=== PATIENT | male | born 1940 | race Caucasian/White ===

== ENCOUNTER 2020-02-23 14:17 | Outpatient (CLI) | payer MEDICARE, OTHER, SELFPAY ==
[2020-02-23 14:46] LABS: Basophils Absolute Auto 0.1 K/mm3 (0.0-0.1); Basophils Percent Auto 1.7 % (0.2-1.2); Eosinophils Absolute Auto 0.1 K/mm3 (0-0.3); Eosinophils Percent Auto 1.9 % (0-4.4); Hematocrit 39.2 % (42.0-52.0); Hemoglobin 13.4 g/dL (14.0-18.0); Immature Granulocyte Absolute 0.02 K/mm3 (0.00-0.031); Immature Granulocyte Percent A 0.4 % (0-0.5); Immature Platelet Fraction Pct 5.7 % (0.9-11.2); Lymphocytes Percent Auto 35.5 % (18.3-44.2); Mean Corpuscular HGB Conc 34.2 g/dl (32-36); Mean Corpuscular Hemoglobin 36.5 pg (26-34); Mean Corpuscular Volume 106.8 fl (80-100); Mean Platelet Volume 10.7 fl (7.4-10.4); Monocytes Absolute Auto 0.6 K/mm3 (0.1-0.6); Monocytes Percent Auto 11.5 % (2.6-8.5); Neutrophils Absolute Auto 2.4 K/mm3 (1.3-6.7); Platelet Count Result 113 k/mm3 (150-375); Red Blood Count 3.67 M/mm3 (4.6-6.20); Red Cell Distribution Width 13.2 % (11.5-14.5); White Blood Count 4.8 K/mm3 (4.5-10.0)
[2020-02-23 14:51] LABS: Partial Thromboplastin Time 23.8 SECONDS (22.3-36.8)
[2020-02-23 14:58] LABS: Blood Urea Nitrogen 20 mg/dL (9-20); Calcium 8.9 mg/dL (8.4-10.2); Carbon Dioxide 28 mmol/L (22-30); Chloride 100 mmol/L (98-107); Estimated Glomerular Filt Rate > 60; Glucose 91 mg/dL (75-110); Potassium 4.2 mmol/L (3.4-5.0); Sodium 136 mmol/L (137-145)
== END 2020-02-23 14:18 | disposition home or self-care (01) ==
LOC: ANHSURGERY 14:23
PROVIDERS: PCP Family Medicine; Visit Provider Urology
DX: Z01.818 Encounter for other preprocedural examination (principal); N32.9 Bladder disorder, unspecified
CPT/HCPCS: 36415; 80048; 85025; 85055; 85730; 87086

== ENCOUNTER 2020-02-28 06:18 | Outpatient (CLI) | payer MEDICARE, OTHER, SELFPAY ==
[2020-02-28 17:27] LABS: SARS-CoV-2 RNA PCR Negative
== END 2020-02-28 06:19 | disposition home or self-care (01) ==
LOC: ANHCOVIDDT 06:18
PROVIDERS: PCP Family Medicine; Visit Provider Urology
DX: Z01.812 Encounter for preprocedural laboratory examination (principal); Z11.59 Encounter for screening for other viral diseases
CPT/HCPCS: 87635; C9803; U0003

== ENCOUNTER 2020-03-02 02:24 | Day surgery (SDC) | payer MEDICARE, OTHER, SELFPAY ==
[2020-02-20 13:10] VITALS: BMI 30.7
[2020-03-02] VITALS (16 sets, daily range): BP systolic 129–157; BP diastolic 60–82; PULSE 53–68; RESP 8–20; TEMP 36.2–36.8; O2SAT 94–99
--- NOTE | 2020-03-02 08:36 | ECG_ITS ---
Measurements Intervals [place] Rate: 59 P: 25 DE: 222 QRS: -17 QRSD: 104 T: 50 QT: 404 QTc: 401 Interpretive Statements SINUS BRADYCARDIA WITH FIRST DEGREE AV BLOCK CANNOT RULE OUT SEPTAL INFARCT, AGE INDETERMINATE PEAKED T WAVES- CONSIDER HYPERKALEMIA OR ISCHEMIA ABNORMAL ECG Electronically Signed On 03-02-2020 9:00:24 CDT by El Toth D.O.
[2020-03-02 09:34] LABS: INR 1.1; Prothrombin Time 13.7 Seconds (11.1-14.7)
--- NOTE | 2020-03-02 09:37 | WPDHPUPDATE1 ---
History and Physical Update Update Date/Time: 03/02/20 09:37 History and Physical has been reviewed, including an updated exam of the patient. There are NO changes in the patient's condition. Risks, benefits, and alternatives have been discussed and questions answered. Patient agrees to proceed with procedure.
[2020-03-02] MEDS: LACTATED RINGERS 1,000 ML 30 ML IV CONT (09:38)
--- NOTE | 2020-03-02 10:18 | WPDANESEPPF ---
Anes - Initial Pre Proc Eval Procedure: Operation Date: 03/02/20 10:15 Proposed Procedures p Cystoscopy, Bladder Biopsy - Roberto Solano MD s Possible Trans Urethral Resection Bladder Tumor - Roberto Solano MD Date/Time: 03/02/20 10:18 Surgeon: Roberto Solano MD Pre Op Diagnosis: bladder lesion Patient Data Age: 79 Gender: M Height: 5 ft 6 in Weight: 87.6 kg Last Vital Signs Temp 36.2 C L 03/02/20 09:08 Pulse 60 03/02/20 09:08 Resp 20 03/02/20 09:08 BP 130/68 03/02/20 09:08 Pulse Ox 98 03/02/20 09:08 Allergies Allergy/AdvReac Type Severity Reaction Status Date / Time sulfamethizole Allergy Unknown Confusion Verified 03/02/20 09:33 sulfamethoxazole Allergy Unknown Confusion Verified 03/02/20 09:33 trimethoprim Allergy Unknown Confusion Verified 03/02/20 09:33 Home Medications Medication Instructions Recorded Confirmed Type atorvastatin 10 mg tablet 10 mg PO HS 10/30/19 02/20/20 History levothyroxine 50 mcg tablet 50 mcg PO DAILY 10/30/19 03/02/20 History tamsulosin 0.4 mg capsule 0.4 mg PO HS 10/30/19 02/20/20 History zolpidem 10 mg tablet 10 mg PO .HS PRN #90 tablet 11/04/19 02/20/20 Rx pantoprazole 20 mg tablet,delayed 20 mg PO QAM #90 tablet 12/08/19 02/20/20 Rx release lidocaine 5 % topical ointment 1 applic TOPICAL TID PRN #120 gm 01/30/20 02/20/20 Rx albuterol sulfate [ProAir HFA] 1 inh INHALATION QID PRN 02/20/20 02/20/20 History ascorbate calcium (vitamin C) 500 mg PO DAILY 02/20/20 02/20/20 History aspirin [Aspir-81] 81 mg PO HS 02/20/20 02/20/20 History calcium carb-mag oxide-vit D3 1 tablet PO DAILY 02/20/20 02/20/20 History [Calcium Magnesium + D] cyanocobalamin (vitamin B-12) 500 mcg PO DAILY 02/20/20 02/20/20 History eluxadoline [Viberzi] 100 mg PO PRN PRN 02/20/20 02/20/20 History metoprolol tartrate [Lopressor] 25 mg PO BID 02/20/20 03/02/20 History multivitamin,ah-lvbk-qopqjtpv 1 tablet PO DAILY 02/20/20 02/20/20 History [Complete Multivitamin] Laboratory Tests 03/02/20 09:10 PT 13.7 Seconds Seconds (11.1-14.7) INR 1.1 Patient hx anesthesia problems: none Family hx anesthesia problems: none [facility] Past Medical History Medical History Anemia Essential hypertension Gastroesophageal reflux Hypothyroidism, unspecified Mild persistent asthma without complication Mixed hyperlipidemia Thrombocytopenia Surgical History Surgical History H/O aortic valve replacement Family History Family History Mother Hypertension Family history of kidney disease Family history of Alzheimer's disease Father Family history of coronary artery disease, Onset Age: 60 Patient's father is , Onset Age: 60 Social History Social History Smoking status: Former smoker Second hand tobacco smoke exposure: No Smoking end date: 08/27/99 Alcohol intake: current Anes - Eval Final PreProcedure Day of Procedure 03/02/20 10:18 Patient weight: obese Heart: regular rate and rhythm Lungs: clear to auscultation Airway: Mallampati scale class II Neurological: alert and oriented Last oral intake: >/= 8 hours ASA classification: III Emergent: no Anesthetic plan: proceed Anesthesia type and monitoring: general LMA and standard monitoring Informed Consent: The patient's anesthetic plan and its attendant risks and benefits were discussed with the patient/family/POA. Questions were solicited and answers provided to the satisfaction of the patient/family/POA.
[2020-03-02] MEDS: ceFAZolin 2 GM/D5W 50 ML 2 GM/50 ML BAG IVPB (10:39)
[2020-03-02] MEDS: LIDOCAINE HCL 2% GEL UROJET 10 ML PKG MUCOUS MEM (10:55)
--- NOTE | 2020-03-02 11:21 | PM.PROC ---
Procedure Note - Detailed Date of procedure: 03/02/20 Pre-op diagnosis: bladder lesion Post-op diagnosis: same Procedure performed: Cystoscopy with bladder biopsy and fulguration Description of procedure: Patient was taken to the operative suite and correctly identified. Once anesthesia was obtained he was placed in the dorsal lithotomy position and prepped draped usual sterile fashion. Twenty-two Slovenian scope was inserted into the bladder in direct vision. He does have some lateral lobe hypertrophy. The bladder itself has no papillary tumors but he does have quite a bit of erythema along the posterior wall as well as lateral wall. Difficult to tell whether this is interstitial cystitis, cystitis, or CIS. We went ahead and did some bladder biopsies and fulgurated the base. It was noted that simply distension the bladder caused some diffuse oozing. we fulgurated all visible bleeders. A 2% viscous lidocaine was inserted into the urethra and an [address] with continuous bladder irrigation. He is taken recovery stable condition. If his urine clears a be discharged home with a Greenwood catheter and have it removed on . He is instructed to call for path results in 1 week. Anesthesia: GLMA Surgeon: Roberto Solano MD Drains: Yes Packing: No Pathology: yes Complications: No immediate complications Condition: stable Disposition: PACU
== END 2020-03-02 15:10 | disposition home or self-care (01) ==
PROVIDERS: PCP Family Medicine; Visit Provider Urology
PROC: 0TBB8ZX Excision of Bladder, Via Natural or Artificial Opening Endoscopic, Diagnostic (ICD-10-PCS; CPT 52204; principal; 2020-03-02 10:15)
DX: N30.20 Other chronic cystitis without hematuria (principal); I10 Essential (primary) hypertension; E78.2 Mixed hyperlipidemia; J45.30 Mild persistent asthma, uncomplicated; D64.9 Anemia, unspecified; K21.9 Gastro-esophageal reflux disease without esophagitis; E03.9 Hypothyroidism, unspecified; Z79.82 Long term (current) use of aspirin; Z95.4 Presence of other heart-valve replacement; E66.9 Obesity, unspecified; Z68.31 Body mass index [BMI] 31.0-31.9, adult
CPT/HCPCS: 52204; 36415; 85610; 88305; 93005; A9270; J0690; J1885; J2405; J2704; J3010; J7120

== ENCOUNTER 2021-02-21 14:04 | Outpatient (CLI) | payer MEDICARE, OTHER, SELFPAY ==
--- NOTE | ~2021-02-21 | XR_ITS ---
EXAMINATION: XR chest 2V DATE: 02/21/2021 14:21 INDICATION: Chest pain TECHNIQUE: PA and lateral views of the chest were obtained. COMPARISON: Chest radiograph dated 01/09/2018 FINDINGS: The lungs remain clear with no focal airspace opacities, pulmonary edema, pleural effusion or pneumot horax. Heart size is normal. Postoperative changes of prior median sternotomy with few additional cli ps which could be related to either prior coronary artery bypass grafting or a prior aortic valve rep air. Retained epicardial pacemaker leads anteroinferior to the heart. IMPRESSION: 1. No acute cardiopulmonary disease. Reviewed, dictated and finalized at location A.
== END 2021-02-21 14:05 | disposition home or self-care (01) ==
LOC: ANHIMG 14:09
PROVIDERS: PCP Family Medicine; Visit Provider Family Medicine
DX: R07.89 Other chest pain (principal)
CPT/HCPCS: 71046

== ENCOUNTER 2021-04-15 14:07 | Outpatient (CLI) | payer MEDICARE, OTHER, SELFPAY ==
[2021-04-15 15:20] LABS: CRP 1.7 mg/dL (<1.0)
[2021-04-15 16:45] LABS: Free T4 Free Thyroxine 1.08 ng/mL (0.78-2.19)
[2021-04-19 09:44] LABS: Endomysial Ab (IgA) Screen Negative (Negative)
[2021-04-21 14:39] LABS: Tissue Transglutaminase IgA Ab 1 U/mL (<4)
== END 2021-04-15 14:08 | disposition home or self-care (01) ==
LOC: ANHLAB 14:12
PROVIDERS: PCP Family Medicine; Visit Provider Nurse Practitioner Family
DX: R19.7 Diarrhea, unspecified (principal)
CPT/HCPCS: 36415; 83516; 84439; 84443; 86140; 86255

== ENCOUNTER 2021-04-21 09:27 | Outpatient (CLI) | payer MEDICARE, OTHER, SELFPAY ==
[2021-04-26 22:56] LABS: Fecal Fat, Ql Normal (Normal)
[2021-04-28 00:32] LABS: Calprotectin, Stool 175 mcg/g
== END 2021-04-21 09:28 | disposition home or self-care (01) ==
LOC: ANHLAB 09:29
PROVIDERS: PCP Family Medicine; Visit Provider Nurse Practitioner Family
DX: R19.7 Diarrhea, unspecified (principal)
CPT/HCPCS: 82705; 83993

== ENCOUNTER 2021-06-23 10:30 | Outpatient (CLI) | payer MEDICARE, OTHER, SELFPAY ==
--- NOTE | ~2021-06-23 | CT_ITS ---
EXAMINATION: CT pelvis w con DATE: 06/23/2021 10:55 INDICATION: Chronic prostatitis. TECHNIQUE: Computed tomography (CT) of the pelvis was performed with 100 mL Omnipaque 350 intravenous contrast. Automated exposure control and iterative reconstruction technique were employed. The dose- length product was 613.17 mGy-cm. COMPARISON: None FINDINGS: Partially visualized are gallstones in the gallbladder. The prostate is mildly enlarged. Th ere is diffuse bladder wall thickening, likely secondary to chronic outlet obstruction. There is a le ft inguinal hernia containing fat. There is diverticulosis of the colon without evidence of diverticu litis. The appendix is fluid-filled and measures 10 mm in diameter. There is a 3.0 cm fusiform aneury sm of infrarenal aorta. There are no pathologically enlarged lymph nodes. There is no free intraperit higginbotham fluid. There is severe lumbar spondylosis. IMPRESSION: 1. Mildly enlarged prostate. 2. Diffuse bladder wall thickening, which may be secondary to chronic outlet obstruction. 3. Appendiceal diameter of 10 mm. Correlate with history and physical exam to exclude acute appendici tis. 4. Left inguinal hernia containing fat. 5. 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 Reviewed, dictated and finalized at location A. IMPRESSION: 1. Mildly enlarged prostate. 2. Diffuse bladder wall thickening, which may be secondary to chronic outlet ob struction. 3. Appendiceal diameter of 10 mm. Correlate with history and physical exam to e xclude acute appendicitis. 4. Left inguinal hernia containing fat. 5. 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
[2021-06-23 10:48] LABS: Estimated Glomerular Filt Rate 58
== END 2021-06-23 10:31 | disposition home or self-care (01) ==
LOC: ANHIMG 10:33
PROVIDERS: PCP Family Medicine; Visit Provider Nurse Practitioner Adult Health
DX: N40.0 Benign prostatic hyperplasia without lower urinary tract symptoms (principal); K40.90 Unilateral inguinal hernia, without obstruction or gangrene, not specified as recurrent; I70.1 Atherosclerosis of renal artery
CPT/HCPCS: 72193; Q9967

== ENCOUNTER 2022-05-24 07:33 | Outpatient (CLI) | payer MEDICARE, OTHER, SELFPAY ==
[2022-05-24 08:32] LABS: Hematocrit 34.4 % (42.0-52.0); Hemoglobin 11.3 g/dL (14.0-18.0); Immature Platelet Fraction Pct 6.8 % (0.9-11.2); Immature Reticulocyte Fraction 16.5 % (3.0-15.9); Mean Corpuscular HGB Conc 32.8 g/dl (32-36); Mean Corpuscular Hemoglobin 38.8 pg (26-34); Mean Corpuscular Volume 118.2 fl (80-100); Mean Platelet Volume 10.3 fl (7.4-10.4); Platelet Count Result 103 k/mm3 (150-375); Red Blood Count 2.91 M/mm3 (4.6-6.20); Red Cell Distribution Width 13.6 % (11.5-14.5); Reticulocyte Hemoglobin Conten 40.7 pg (28.2-35.7); Reticulocyte Percent 3.13 % (0.7-4.3); Reticulocytes Absolute 0.09 B/L (32.2-175.7); White Blood Count 4.2 K/mm3 (4.5-10.0)
[2022-05-24 08:44] LABS: Alanine Aminotransferase 28 U/L (6-50); Alkaline Phosphatase 63 U/L (38-126); Anion Gap 7 mmol/L (8-16); Aspartate Amino Transferase 28 U/L (17-59); Bilirubin,Total 0.8 mg/dL (0.2-1.3); Blood Urea Nitrogen 17 mg/dL (9-20); Calcium 8.7 mg/dL (8.4-10.2); Carbon Dioxide 28 mmol/L (22-30); Chloride 100 mmol/L (98-107); Cholesterol 130 mg/dL (0-200); Estimated Glomerular Filt Rate > 60; Glucose 95 mg/dL (65-110); HDL Direct 40 mg/dL; Potassium 4.1 mmol/L (3.4-5.0); Sodium 135 mmol/L (137-145); Triglycerides 121 mg/dL (<150)
[2022-05-24 08:55] LABS: LDL Cholesterol Direct 70 mg/dL
[2022-05-24 08:57] LABS: Iron 106 ug/dL (49-181)
[2022-05-24 09:57] LABS: Folic Acid > 20.0 ng/mL (2.76->20); Percent Iron Saturation 32 % (20-50)
== END 2022-05-24 07:34 | disposition home or self-care (01) ==
PROVIDERS: PCP Family Medicine; Visit Provider Family Medicine
DX: D64.9 Anemia, unspecified (principal); E03.9 Hypothyroidism, unspecified; E78.2 Mixed hyperlipidemia; I10 Essential (primary) hypertension
CPT/HCPCS: 36415; 80053; 80061; 82607; 82728; 82746; 83540; 83550; 84443; 85027; 85046; 85055

== ENCOUNTER 2022-06-13 13:37 | Inpatient (IN) | payer MEDICARE, OTHER, SELFPAY ==
[2022-06-13] VITALS (48 sets, daily range): BP systolic 72–131; BP diastolic 38–93; PULSE 69–124; RESP 14–36; TEMP 36.3–37.3; O2SAT 92–100; BMI 29.7
--- NOTE | ~2022-06-13 | US_ITS ---
. EXAMINATION: US venous doppler UE DATE: 06/21/2022 11:34 INDICATION: Upper limb edema. TECHNIQUE: Grayscale ultrasound images without and with compression and Doppler ultrasound images of the bilateral upper extremity veins were obtained. COMPARISON: None. FINDINGS: The visualized portions of the right internal jugular vein, subclavian vein, axillary vein, brachial veins, basilic vein, cephalic vein, radial vein, and ulnar vein are patent. The visualized portions of the left internal jugular vein, subclavian vein, axillary vein, brachial v eins, basilic vein, cephalic vein, radial vein, and ulnar vein are patent. IMPRESSION: 1. No deep venous thrombosis. Reviewed, dictated and finalized at location A.
--- NOTE | ~2022-06-13 | US_ITS ---
EXAMINATION: US venous doppler [facility] DATE: 06/16/2022 09:28 INDICATION: Shortness of breath TECHNIQUE: Chang scale images without and with compression and Doppler images of the bilateral lower e xtremity veins were obtained. COMPARISON: None FINDINGS: The right common femoral vein, profunda femoral vein, femoral vein, popliteal vein, peroneal trunk, p osterior tibial veins, and greater saphenous vein are patent. The left common femoral vein, profunda femoral vein, femoral vein, popliteal vein, peroneal trunk, po sterior tibial veins, and greater saphenous vein are patent. IMPRESSION: 1. Patent bilateral lower extremity veins. No evidence of deep venous thrombosis. Reviewed, dictated and finalized at location B. IMPRESSION: 1. Patent bilateral lower extremity veins. No evidence of deep venous thrombosi s.
--- NOTE | ~2022-06-13 | XR_ITS ---
EXAMINATION: XR chest 1V portable Exam Date/Time: 06/13/2022 15:40 CDT HISTORY: Hypotension/weakness HXCOPD,htn,aortic valve replacement Comparison: 02/13/2021. RESULT: Lines, tubes, and devices: Intact sternotomy wires. Cardiac valve replacement. Lungs and pleura: Senescent change, otherwise clear. Cardiomediastinal silhouette: Stable. Other: No acute osseous or upper abdominal finding. IMPRESSION: No acute cardiopulmonary process. Reviewed, dictated and finalized at location K.
--- NOTE | ~2022-06-13 | CT_ITS ---
EXAMINATION: CT chest abdomen pelvis wo con DATE: 06/14/2022 10:17 INDICATION: Sepsis. Shortness of breath. Acute kidney injury. TECHNIQUE: Computed tomography (CT) of the chest, abdomen, and pelvis was performed without intraveno us contrast. Automated exposure control and iterative reconstruction technique were employed. The dos e-length product was 810.39 mGy-cm. COMPARISON: Pelvis CT 06/23/2021 FINDINGS: CHEST CT: There is mild atelectasis in the lungs. There are small pleural effusions. There is a 4 mm nodule in left upper lobe, likely benign. There is mild scarring at the lung apices. A right internal jugular c entral venous catheter is seen with tip at the superior cavoatrial junction. The heart size is normal . There are changes of aortic valve replacement. There are coronary artery calcifications. No pericar dial effusion. There is mild thoracic spondylosis. ABDOMEN/PELVIS CT: The liver is normal. The gallbladder is distended and contains gallstones. Gallbladder wall thickenin g is noted. The spleen, pancreas, and adrenal glands are normal. There are cysts in the kidneys measu ring up to 3.4 cm on the right. There is no urolithiasis. The bladder is decompressed by a Greenwood cath eter. There is a left inguinal hernia containing fat. There is liquid stool in the colon suggestive o f diarrhea. There is diverticulosis of the colon without evidence of diverticulitis. The appendix is normal. There are no pathologically enlarged lymph nodes. There is a 3.0 cm fusiform aneurysm of infr arenal aorta. There is no free intraperitoneal fluid. There is severe lumbar spondylosis. IMPRESSION: 1. Distended gallbladder with gallstones and gallbladder wall thickening suspicious for acute cholecy stitis. If this result is discordant with physical exam, consider hepatobiliary scintigraphy. 2. Small pleural effusions. 3. Left inguinal hernia containing fat. 4. 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 Reviewed, dictated and finalized at location B. IMPRESSION: 1. Distended gallbladder with gallstones and gallbladder wall thickening suspic ious for acute cholecystitis. If this result is discordant with physical exam, consider hepatobiliary scintigraphy. 2. Small pleural effusions. 3. Left inguinal hernia containing fat. 4. 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
--- NOTE | ~2022-06-13 | CT_ITS ---
EXAMINATION: CT brain wo con DATE: 06/13/2022 18:15 INDICATION: Altered mental status . TECHNIQUE: Computed tomography (CT) of the head was performed without intravenous contrast. The mA wa s adjusted according to patient size. Iterative reconstruction technique was employed. The dose-lengt h product was 605.33 mGy-cm. COMPARISON: 07/05/2009 FINDINGS: No acute intracranial hemorrhage or extra-axial fluid collection. No hydrocephalus, mass, or herniation. No acute ischemic infarct. Unremarkable dural venous sinus attenuation. No acute osseous abnormality. Periodontal disease. Mild mucosal thickening in the inferior frontal sinuses and anterior ethmoid air cells as well as the inferior left maxillary sinus, the remaining aerated spaces are clear. Mild atrophy and moderate chronic white matter change. Atherosclerotic intracranial calcification. Fo deana old lacunar infarct in the right basal ganglia. Focal old infarct in the right cerebellum. IMPRESSION: No acute intracranial process. Reviewed, dictated and finalized at location K.
--- NOTE | ~2022-06-13 | US_ITS ---
EXAMINATION: US renal BI DATE: 06/21/2022 13:06 INDICATION: Acute renal insufficiency TECHNIQUE: Multiple ultrasound grayscale images of the kidneys were obtained. COMPARISON: None. FINDINGS: The right kidney measures 11.4 x 5.6 x 6.8 cm. The left kidney measures 12.8 x 5.6 x 6.0 cm. The kidn eys demonstrate normal echogenicity. Bilateral anechoic renal cysts measuring up to 2.3 cm at the low er pole of the right kidney, 2.1 cm at the mid left and 2.3 cm at the lower pole of the left kidneys. There is no hydronephrosis in either kidney. No stones identified. The bladder is normal. IMPRESSION: 1. Bilateral simple appearing renal cyst. Otherwise normal kidneys with no hydronephrosis. Reviewed, dictated and finalized at location A. IMPRESSION: 1. Bilateral simple appearing renal cyst. Otherwise normal kidneys with no hyd ronephrosis.
--- NOTE | ~2022-06-13 | XR_ITS ---
EXAMINATION: XR chest port-a-cath/central Exam Date/Time: 06/13/2022 18:50 CDT HISTORY: central line placement Comparison: Same date at 3:40 PM. RESULT: Lines, tubes, and devices: Intact sternotomy wires. Cardiac valve replacement. New right IJ central line terminating in the distal SVC. Lungs and pleura: Increased mild reticular opacities. Mild cephalization. Cardiomediastinal silhouette: Stable. Other: No acute osseous or upper abdominal finding. IMPRESSION: New right IJ central line, in good position. New mild vascular congestion/mild interstitial edema. Reviewed, dictated and finalized at location K.
--- NOTE | ~2022-06-13 | XR_ITS ---
XR chest 1V portable 06/25/2022 12:47 Indication: Chest pain and shortness of breath Procedure: AP portable chest Comparison: Comparison to multiple prior studies sequentially, with oldest reviewed study dated 05/27. Findings: Status post median sternotomy for CABG. Right IJ central line tip in the SVC. Heart size no rmal. There is extensive bilateral airspace disease. Small right pleural effusion. Impression: 1: Extensive bilateral airspace disease which may represent edema and/or pneumonia. 2: Small right pleural effusion. Reviewed, dictated and finalized at location A. Impression: 1: Extensive bilateral airspace disease which may represent edema and/or pneumo zulma. 2: Small right pleural effusion.
--- NOTE | ~2022-06-13 | XR_ITS ---
EXAMINATION: XR chest 1V portable INDICATION: Atrial fibrillation TECHNIQUE: Portable AP chest at 1041 hours COMPARISON: 06/13/2022 FINDINGS: A right internal jugular catheter ends with its tip in the superior vena cava. There is mil d atelectasis of the lung bases. No pleural effusion or pneumothorax. Changes of cardiac valve surger y are noted. The heart size is normal. IMPRESSION: 1. Mild atelectasis of the lung bases. Reviewed, dictated and finalized at location B.
--- NOTE | ~2022-06-13 | NM_ITS ---
EXAMINATION: NM hepatobiliary w pharm DATE: 06/15/2022 14:45 INDICATION: Acute cholecystitis. COMPARISON: CT abdomen and pelvis 06/14/2022 TECHNIQUE: 4 mCi Tc-99m mebrofenin (Choletec) was administered intravenously. Scintigraphic images o f the abdomen were obtained for one hour. Then, 2 mg morphine IV was administered, and imaging was co ntinued for 30 minutes. FINDINGS: There is normal clearance of radiotracer from the blood pool. There is homogeneous tracer u ptake by the liver. Activity progresses to the bowel and gallbladder. IMPRESSION: 1. Patent cystic duct and common duct. No evidence of acute cholecystitis. Reviewed, dictated and finalized at location A.
--- NOTE | ~2022-06-13 | XR_ITS ---
XR chest 1V portable 06/24/2022 09:52 Indication: Shortness of breath Procedure: AP portable chest Comparison: Comparison to multiple prior studies sequentially, with oldest reviewed study dated 02/21. Findings: Status post median sternotomy for CABG. Right IJ central line tip in the SVC. Diffuse bilat eral airspace disease. Small pleural effusions. There is more focal consolidation in the right perihi lar location. Impression: 1: Interval development of diffuse bilateral airspace disease with small pleural effusions. Different ial diagnosis includes edema and pneumonia. Reviewed, dictated and finalized at location A. Impression: 1: Interval development of diffuse bilateral airspace disease with small pleura l effusions. Differential diagnosis includes edema and pneumonia.
--- NOTE | ~2022-06-13 | XR_ITS ---
EXAMINATION: XR abdomen/kub 1V DATE: 06/30/2022 11:03 INDICATION: Adynamic ileus. TECHNIQUE: A supine view of the abdomen on 2 radiographs was obtained. COMPARISON: CT abdomen and pelvis 06/14/2022 FINDINGS: There are changes of heart valve replacement. There are small pleural effusions. There are no dilated loops of bowel. IMPRESSION: 1. Normal bowel gas pattern. 2. Small pleural effusions. Reviewed, dictated and finalized at location A.
--- NOTE | 2022-06-13 13:43 | ECG_ITS ---
Measurements Intervals [place] Rate: 74 P: 29 ID: [id number] QRS: -22 QRSD: 97 T: 26 QT: 406 QTc: 451 Interpretive Statements SINUS RHYTHM WITH FIRST DEGREE AV BLOCK BORDERLINE LEFT AXIS DEVIATION [QRS AXIS < -20] EARLY REPOLARIZATION [ST ELEVATION WITH NORMALLY INFLECTED T WAVE] ABNORMAL ECG COMPARED TO ECG 03/02/2020 08:58:22 SINUS RHYTHM NOW PRESENT Electronically Signed On 06-13-2022 15:03:18 CDT by David Reyes M.D.
[2022-06-13 14:48] LABS: Hematocrit 29.4 % (42.0-52.0); Hemoglobin 10.1 g/dL (14.0-18.0); Mean Corpuscular HGB Conc 34.4 g/dl (32-36); Mean Corpuscular Hemoglobin 38.8 pg (26-34); Mean Corpuscular Volume 113.1 fl (80-100); Mean Platelet Volume 10.6 fl (7.4-10.4); Platelet Count Result 55 k/mm3 (150-375); Red Cell Distribution Width 13.2 % (11.5-14.5); White Blood Count 12.9 K/mm3 (4.5-10.0)
[2022-06-13 14:55] LABS: INR 1.4; Prothrombin Time 16.7 Seconds (11.1-14.7)
[2022-06-13 14:56] LABS: Alanine Aminotransferase 28 U/L (6-50); Albumin Level 3.6 g/dL (3.5-5.1); Alkaline Phosphatase 62 U/L (38-126); Anion Gap 9 mmol/L (8-16); Aspartate Amino Transferase 38 U/L (17-59); Bilirubin,Total 1.8 mg/dL (0.2-1.3); Blood Urea Nitrogen 28 mg/dL (9-20); Carbon Dioxide 22 mmol/L (22-30); Chloride 100 mmol/L (98-107); Estimated Glomerular Filt Rate 41; Glucose 104 mg/dL (65-110); Partial Thromboplastin Time 35.2 SECONDS (22.3-36.8); Potassium 3.8 mmol/L (3.4-5.0); Sodium 131 mmol/L (137-145)
[2022-06-13 15:06] LABS: Band Neutrophils Percent 41 % (0-6); Lymphocytes Absolute Manual 0.25 K/mm3 (1.1-4.5); Monocytes Absolute Manual 0.12 K/mm3 (0.1-0.90); Monocytes Percent Manual 1 % (3-9); Neutrophils Absolute Manual 12.51 K/mm3 (1.3-6.7); Neutrophils Percent Manual 56 % (46-73); Total Cells Counted 100
[2022-06-13 15:07] LABS: Anisocytosis 1+ (NORMAL); Hypochromasia 1+ (NORMAL); Platelet Estimate Decreased (Adequate); Schistocytes None Seen (NORMAL)
[2022-06-13] MEDS: SODIUM CHLORIDE 0.9% IV 2,000 ML 999 ML IV CONT (15:35)
--- NOTE | 2022-06-13 15:56 | ED.GENADULT ---
HPI - General Adult General Chief complaint: Altered Mental Status Stated complaint: fall, disoriented 06/12/22 Time Seen by Provider: 06/13/22 15:06 History of Present Illness HPI narrative: This is an 82-year-old male with past medical history of hypothyroidism hyperlipidemia, presenting the emergency department complaining of generalized weakness and fall. Per the patient he has felt under the weather for the past 2 days, vomiting once yesterday and tripping and falling today. He denies hitting his head or losing consciousness. His who is at bedside states he has had decreased appetite, vomited after dinner without blood. He has no other complaints today. Related Data Home Medications Medication Instructions Recorded Confirmed albuterol sulfate 90 mcg/actuation 1 inh inhalation QID PRN Shortness 02/20/20 06/13/22 aerosol inhaler (ProAir HFA) Of Breath metoprolol tartrate 25 mg tablet 25 mg PO BID 05/06/20 06/13/22 solifenacin 10 mg tablet (Vesicare) 10 mg PO DAILY 07/13/21 06/13/22 budesonide 3 mg 6 mg PO DAILY PRN Allergy Symptoms 06/13/22 06/13/22 capsule,delayed,extended release calcium carb-Ca gluc 500 mg 1 tablet PO DAILY 06/13/22 06/13/22 calcium-magnesium ox-Mg gluc 250 mg tablet (Calcium Magnesium) calcium carb-magnesium oxide-vit tablet PO 06/13/22 D3 400 mg-167 mg-133 unit tablet (Calcium Magnesium + D) cholecalciferol (vitamin D3) 350 350 mcg PO ONCE 06/13/22 06/13/22 mcg (14,000 unit) capsule clobetasol 0.05 % scalp solution 1 applic topical DAILY PRN Skin 06/13/22 06/13/22 Irritation phenazopyridine 100 mg tablet 100 mg PO TID PRN Bladder Spasms 06/13/22 06/13/22 (Pyridium) zolpidem 10 mg tablet (Ambien) 10 mg PO QHS PRN insomnia 06/13/22 06/13/22 Allergies Allergy/AdvReac Type Severity Reaction Status Date / Time sulfamethizole Allergy Unknown Confusion Verified 06/13/22 15:39 sulfamethoxazole Allergy Unknown Confusion Verified 06/13/22 15:39 trimethoprim Allergy Unknown Confusion Verified 10/18/22 15:39 Review of Systems Review of Systems: CONSTITUTIONAL: Denies fever, chills, or sweats. EYES: Denies visual changes, redness, or discharge. ENT: Denies rhinorrhea, congestion, sore throat, or otalgia. CARDIOVASCULAR: Denies chest pain, palpitations, or edema. RESPIRATORY: Denies cough or dyspnea. GASTROINTESTINAL: Vomiting x1 without blood denies abdominal pain, nausea, or diarrhea. GENITOURINARY: Denies dysuria or hematuria. SKIN: Denies rash or itching. MUSCULOSKELETAL: Denies back pain, joint pain, or myalgia. NEUROLOGIC: Denies headache, numbness, dizziness, or weakness. PSYCHIATRIC: Denies anxiety or depression. [facility] Past Medical History Medical History Anemia Essential hypertension Gastroesophageal reflux H/O bladder problems Hypothyroidism, unspecified Insomnia Mild persistent asthma without complication Mixed hyperlipidemia Thrombocytopenia Surgical History Surgical History H/O aortic valve replacement Family History Family History Mother Hypertension Family history of kidney disease Family history of Alzheimer's disease Father Family history of coronary artery disease, Onset Age: 60 Patient's father is , Onset Age: 60 Social History Social History Smoking status: Former smoker Second hand tobacco smoke exposure: No Smoking end date: 06/23/92 Alcohol intake: current Drinks per week: 4 Alcohol use details: social Substance use: never Substance use type: does not use Gender identity (if verbalized by the patient): Male Spiritual care concerns: No Has the Lack of Transportation Kept You From Medical Appointments or From Getting Medications?: No Within the Past 12 Months, Were You Worried
[2022-06-13 16:36] LABS: Influenza A QL RT-PCR Negative (Negative); Influenza B QL RT-PCR Negative (Negative); SARS-CoV-2 RNA PCR Negative
[2022-06-13 17:02] LABS: Lactic Acid Reflex 1.7 mmol/L (0.7-2.0)
--- NOTE | 2022-06-13 17:03 | PC.NURSE ---
patient recently been treated for UTI. currently taking pyridium
[2022-06-13] MEDS: SODIUM CHLORIDE 0.9% IV 1,000 ML 999 ML IV CONT (17:25)
[2022-06-13 17:28] LABS: Add Urine Microscopic? YES; Appearance Urine Cloudy (Clear); Bilirubin Urine Negative (Negative); Blood Urine Negative (Negative); Color Urine Amber (Yellow); Glucose Urine UA Negative (Negative); Ketones Urine Negative (Negative); Leukocyte Esterase Ur Negative LEU/UL (Negative); Mucus Urine Rare /lpf; Nitrate Urine Positive (Negative); Protein Urine 1+ mg/dL (Negative); RBC Urine 0-2 /hpf (0-2); Specific Grav Ur 1.016 (1.001-1.035)
[2022-06-13] MEDS: NOREPINEPHRINE 8 MG/D5W 250 ML 8 MG/250 ML BAG 9.38 MG IV CONT ×2 (19:14→21:55)
--- NOTE | 2022-06-13 19:43 | PM.IMHP ---
H&P: HPI History of Present Illness Date/Time: 06/13/22 21:45 Chief Complaint: Fall, slow to respond Narrative: 82-year-old male with a past medical history of aortic valve replacement, moderate pulmonary hypertension, hypothyroidism, BPH and essential hypertension who presented to the ER with fall and change in mental status. Patient is reportedly oriented but slow to respond. At the time of my evaluation the patient is alert oriented x4 and responding appropriately. Source of information from past medical records and patient report. The patient is a fair historian. The patient reported that he had not felt well for a couple of days. He has had decreased appetite and had vomited once with dinner yesterday. He reports feeling extremely thirsty currently. He has not had any further vomiting since admission. He also reports increased urinary frequency and dysuria similar to when he had prior urinary tract infections. He is on Pyridium chronically for dysuria. He reports that his urine is always discolored. He has not noticed any foul odor. He denies sensation of incomplete bladder emptying. Patient has not voided since arrival to the ICU despite 30 mL/kilos fluid bolus. Denies any fevers or chills. He has been having 2-3 mushy stools a day. He was incontinent of stool when he arrived to the ICU. he denies any abdominal pain or suprapubic pain. was brown in color. He denies being on antibiotics recently. However he evidently had a prescription filled for amoxicillin on 06/12/2022 for an 8 day supply. Review of Systems Review of Systems: 12 systems were reviewed with pertinent positives and negatives per HPI. Except as documented in the HPI, all other systems were reviewed and are negative. [facility] Past Medical History Medical History (Updated 06/14/22 @ 08:01 by Nupur Morrison DO) Anemia Basal cell carcinoma BPH (benign prostatic hyperplasia) Collagenous colitis Coronary artery disease Diastolic dysfunction Echocardiogram 04/2022: EF 70% grade 1 diastolic dysfunction, aortic valve prosthesis with good function, moderate pulmonary hypertension Essential hypertension Gastroesophageal reflux H/O bladder problems Hypothyroidism, unspecified Insomnia Kidney stones Latent tuberculosis Treated with INH in 1959 Mild persistent asthma without complication Mixed hyperlipidemia Thrombocytopenia Surgical History Surgical History (Updated 06/14/22 @ 07:50 by Nupur Morrison DO) H/O aortic valve replacement (2013) 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 And 2 children. He smoked up to 4 packs of cigarettes per day but for the most part smoked 1-2 packs of cigarettes per day. He smoked for approximately 30 years but quit in 1991. He reports that he drinks 4 oz of liquor every day which he describes as social drinking. 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 Code status: Full code Surrogate decision maker: Nae () and Cee (youngest daughter) Smoking packs per day: 1 Smoking cigarettes per day: 20.0 Years smoked: 30 Smoking pack-years: 30.00 Smoking status: Former smoker Second hand tobacco smoke exposure: No Smoking end date: 06/23/92 Alcohol intake: current Alcohol use details: He reports that he drinks 4 oz of liquor every day. Substance use: never Substance use type: does not use Gender identity (if verbalized by the patient): Male Spiritual care concerns: No Has the Lack of Transportation Ke
[2022-06-13] MEDS: SODIUM CHLORIDE 0.9% IV 1,000 ML 125 ML IV CONT (21:30)
[2022-06-14] VITALS (15 sets, daily range): BP systolic 102–126; BP diastolic 55–83; PULSE 75–102; RESP 15–25; TEMP 36.5–37.3; O2SAT 92–100
[2022-06-14] MEDS: TAMSULOSIN HCL 0.4 MG CAPSULE PO ×2 (00:46→20:14)
[2022-06-14] MEDS: ATORVASTATIN 10 MG TABLET PO ×2 (00:46→20:14)
[2022-06-14] MEDS: SODIUM CHLORIDE 0.9% IV 1,000 ML 125 ML IV CONT (04:38)
[2022-06-14 05:05] LABS: Hematocrit 25.9 % (42.0-52.0); Hemoglobin 8.8 g/dL (14.0-18.0); Immature Platelet Fraction Pct 7.7 % (0.9-11.2); Mean Corpuscular Hemoglobin 39.3 pg (26-34); Mean Corpuscular Volume 115.6 fl (80-100); Mean Platelet Volume 11.4 fl (7.4-10.4); Platelet Count Result 43 k/mm3 (150-375); Red Blood Count 2.24 M/mm3 (4.6-6.20); Red Cell Distribution Width 13.7 % (11.5-14.5)
[2022-06-14 05:16] LABS: Alanine Aminotransferase 27 U/L (6-50); Albumin Level 2.8 g/dL (3.5-5.1); Alkaline Phosphatase 48 U/L (38-126); Anion Gap 9 mmol/L (8-16); Aspartate Amino Transferase 44 U/L (17-59); Bilirubin,Total 1.3 mg/dL (0.2-1.3); Blood Urea Nitrogen 24 mg/dL (9-20); Calcium 7.1 mg/dL (8.4-10.2); Carbon Dioxide 21 mmol/L (22-30); Chloride 103 mmol/L (98-107); Estimated CRCL calculation 44 ml/min; Estimated Glomerular Filt Rate 58; Glucose 97 mg/dL (65-110); Potassium 3.6 mmol/L (3.4-5.0); Sodium 133 mmol/L (137-145)
[2022-06-14] MEDS: LEVOTHYROXINE SODIUM 50 MCG TABLET PO (06:20)
[2022-06-14] MEDS: cefTRIAXone 2 GM in SODIUM CHLORIDE 0.9% IV 100 ML 200 ML IVPB (08:44)
[2022-06-14 08:54] LABS: Creatine Kinase 477 U/L (55-170)
--- NOTE | 2022-06-14 09:01 | WPDCNINT ---
Assessment and Plan Assessment and plan (1) Septic shock: Code(s): A41.9 - Sepsis, unspecified organism; R65.21 - Severe sepsis with septic shock Status: Acute Assessment and Plan: Patient presented with slightly elevated WBC count, low blood pressure but normal lactic acid level Despite IV fluids his pressure remain low and he was started on IV vasopressors. Right IJ central venous catheter was placed His UA suggests UTI He also reports diarrhea which could be gastroenteritis He is also reporting of cough. Chest x-ray initially was clear but now shows some pulmonary congestion. He is on room air This could be a viral illness Check procalcitonin level. Blood and urine cultures have been sent Check CT chest abdomen pelvis Continue IV Rocephin. Add Flagyl. If CT suggest consolidation lungs, will adjust antibiotic therapy Hold further IV fluids at this time to prevent volume overload Continue Levophed as needed to maintain mean arterial pressure (2) ZORAN (acute kidney injury): Code(s): N17.9 - Acute kidney failure, unspecified Status: Acute Assessment and Plan: Patient presented with elevated creatinine of 1.6. This could be prerenal from sepsis Creatinine has improved with IV fluids Check CK level CT and pelvis ordered for diarrhea Monitor electrolytes urine output and creatinine (3) Acute UTI: Code(s): N39.0 - Urinary tract infection, site not specified Status: Acute Assessment and Plan: See above (4) Diarrhea: Code(s): R19.7 - Diarrhea, unspecified Status: Acute Assessment and Plan: Patient reports diarrhea. Could be gastroenteritis Check CT abdomen pelvis Check stool for C diff At empiric Flagyl (5) CHF (congestive heart failure): Code(s): I50.9 - Heart failure, unspecified Status: Acute Assessment and Plan: Echo done on 04/2022 reviewed and showed mild LVH, normal systolic function diastolic dysfunction was present moderate pulmonary hypertension with elevated right ventricular pressures and mild TR Patient has few crackles on exam on both sides. Chest x-ray also showed mild pulmonary congestion Hold further IV fluids Check BNP He is also getting CT chest for further evaluation (6) Thrombocytopenia: Code(s): D69.6 - Thrombocytopenia, unspecified Status: Acute Assessment and Plan: Patient has come chronic thrombocytopenia appears to be worse. This could be multifactorial secondary to sepsis or infection Monitor platelet count. Transfuse if needed (7) Hypothyroidism, unspecified: Code(s): E03.9 - Hypothyroidism, unspecified Status: Acute Assessment and Plan: Continue levothyroxine Check TSH (8) BPH without obstruction/lower urinary tract symptoms: Code(s): N40.0 - Benign prostatic hyperplasia without lower urinary tract symptoms Status: Acute Assessment and Plan: Greenwood in place Plan DVT prophylaxis -SCDs Stress ulcer prophylaxis -PPI Nutrition -diet ordered Code Status - Full Code Total Critical Care Time - 35 minutes Due to a high probability of clinically significant, life threatening deterioration, the patient required my highest level of preparedness to intervene emergently and I personally spent this critical care time directly and personally managing the patient. This critical care time included obtaining a history; examining the patient; pulse oximetry; ordering and review of studies; arranging urgent treatment with development of a management plan; evaluation of patient's response to treatment; frequent reassessment; and discussions with other providers. It was exclusive of separately billable procedures and treating other patients and teaching time. 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
[2022-06-14] MEDS: CALCIUM GLUC 2,000 MG/NS 100ML 2,000 MG/100 ML BAG 100 MG IVPB (09:06)
[2022-06-14 09:20] LABS: NT Pro B Type Natriuretic Pept 11900 pg/mL (5-100)
[2022-06-14 09:20] LABS: Procalcitonin 14.7 ng/mL
[2022-06-14] MEDS: MAGNESIUM OXIDE 200 MG TABLET PO (09:53)
[2022-06-14] MEDS: PANTOPRAZOLE SOD SESQUIHYDRATE 20 MG TAB PO (09:53)
[2022-06-14] MEDS: SOLIFENACIN 5 MG TABLET 10 MG PO (09:53)
[2022-06-14] MEDS: CALCIUM CARBONATE (OSCAL) 500 MG TABLET PO (09:54)
[2022-06-14] MEDS: POTASSIUM CHLORIDE 20 MEQ TABLET 40 MEQ PO (10:43)
[2022-06-14] MEDS: metroNIDAZOLE 500 MG/ISO 100ML 500 MG/100 ML BAG 100 MG IVPB ×2 (13:07→18:28)
--- NOTE | 2022-06-14 13:11 | PM.IMPN ---
Progress Note: A&P Assessment and Plan (1) Septic shock: Code(s): A41.9 - Sepsis, unspecified organism; R65.21 - Severe sepsis with septic shock Status: Acute Assessment and Plan: Patient presented with slightly elevated WBC count, low blood pressure but normal lactic acid level Despite IV fluids his pressure remain marginal. Right IJ central venous catheter was placed His UA suggests UTI He also reports diarrhea which could be gastroenteritis Received antibiotics in the ER. Continue on Flagyl (2) ZORAN (acute kidney injury): Code(s): N17.9 - Acute kidney failure, unspecified Status: Acute Assessment and Plan: monitor kidney function. (3) Acute UTI: Code(s): N39.0 - Urinary tract infection, site not specified Status: Acute Assessment and Plan: See above (4) Diarrhea: Code(s): R19.7 - Diarrhea, unspecified Status: Acute Assessment and Plan: Patient reports diarrhea. Could be gastroenteritis Check CT abdomen pelvis Check stool for C diff Start empiric Flagyl (5) CHF (congestive heart failure): Code(s): I50.9 - Heart failure, unspecified Status: Acute Assessment and Plan: Echo done on 04/2022 reviewed and showed mild LVH, normal systolic function diastolic dysfunction was present moderate pulmonary hypertension with elevated right ventricular pressures and mild TR Patient has few crackles on exam on both sides. Chest x-ray also showed mild pulmonary congestion Hold further IV fluids Check BNP He is also getting CT chest for further evaluation (6) Thrombocytopenia: Code(s): D69.6 - Thrombocytopenia, unspecified Status: Acute Assessment and Plan: Patient has come chronic thrombocytopenia appears to be worse. This could be multifactorial secondary to sepsis or infection Monitor platelet count. Transfuse if needed (7) Hypothyroidism, unspecified: Code(s): E03.9 - Hypothyroidism, unspecified Status: Acute Assessment and Plan: Continue levothyroxine Check TSH (8) BPH without obstruction/lower urinary tract symptoms: Code(s): N40.0 - Benign prostatic hyperplasia without lower urinary tract symptoms Status: Acute Assessment and Plan: Greenwood in place Subjective Date/time seen: 06/14/22 13:11 no new complaints. Blood pressure is better. Off pressors. Exam Narrative: General: Pt is alert awake and in NAD Lungs/Chest: Trachea central Clear BS B/L, bibasilar crackles Cardiac: RRR. Normal S1 S2. No murmurs Circulation: Pedal pulses are intact and symmetrical. Abdomen: Normal bowel sounds.. Soft. NT. ND. Extremities: No clubbing, cyanosis or edema. Warm : Greenwood in place Neurologic: Follows commands. Moves all 4 extremities PERRL AO x3 Skin: No Rash Objective Data Vital Signs Vital Signs: Vital Signs - 24 hr 06/13/22 13:44 06/13/22 14:19 06/13/22 14:30 Temperature 99.1 F Pulse Rate 124 H 78 77 Respiratory Rate 14 27 H 24 H Blood Pressure 124/93 H Pulse Oximetry 100 Oxygen Delivery Room Air 06/13/22 14:53 06/13/22 15:08 06/13/22 15:22 Temperature 98.3 F Pulse Rate 75 90 Respiratory Rate 22 H 24 H Blood Pressure 93/50 L Pulse Oximetry Oxygen Delivery 06/13/22 15:27 06/13/22 15:22 06/13/22 15:23 Temperature Pulse Rate 74 75 Respiratory Rate 19 25 H Blood Pressure 74/38 L 77/44 L Pulse Oximetry Oxygen Delivery 06/13/22 15:24 06/13/22 15:32 06/13/22 15:45 Temperature Pulse Rate 82 74 73 Respiratory Rate 18 23 H 20 Blood Pressure 73/46 L 72/50 L Pulse Oximetry Oxygen Delivery 06/13/22 15:46 06/13/22 16:02 06/13/22 16:26 Temperature Pulse Rate 74 71 72 Respiratory Rate 21 H 20 25 H Blood Pressure Pulse Oximetry Oxygen Delivery 06/13/22 16:30 06/13/22 16:37 06/13/22 17:08 Temperature Pulse Rate 70 70 73 Respiratory Rate 19 25 H 16 Blood Pressure 83/49 L
[2022-06-14 13:55] LABS: Toxigenic C. Diff POSITIVE (NEGATIVE)
[2022-06-14] MEDS: CENTRAL LINE FLUSH 10 ML IV PUSH ×2 (14:31→21:32)
--- NOTE | 2022-06-14 18:13 | PC.NURSE ---
Addendum entered by Aylin Toussaint RN 06/14/22 19:13: This nurse got report from Krystal Original Note: This patient, Naga De Leon, was received from [ICU] on 06/14/22 at 1800. Patient/family oriented to unit policies and routines
[2022-06-15] VITALS (8 sets, daily range): BP systolic 116–129; BP diastolic 57–66; PULSE 82–90; RESP 17–22; TEMP 36.3–36.8; O2SAT 93–97
--- NOTE | 2022-06-15 | ECHO_ITS ---
Patient Info Name: Naga De Leon Age: 82 years : 1940 Gender: Male Ht: 67 in Wt: 190 lbs BSA: 2.04 m2 HR: 82 bpm BP: 116 / 60 mmHg Heart Rhythm: Sinus Rhythm Exam Date: 06/15/2022 10:51 AM Exam Location: [facility] Patient Status: Inpatient Admit Date: 06/13/2022 Staff Ordering Physician: Michelet Wells MD Associate Programmer Analyst: Khanh Ngo RDCS, RT Attending Provider: Berna Perales DO Referring Physician: Russell GOMEZ; Exam Type: CA echo doppler color flow Study Info Indications - Bacteremia I50.9 - Heart failure, unspecified Complete two-dimensional, color flow and Doppler transthoracic echocardiogram is performed. Strain analysis performed. Summary 1. Complete two-dimensional, color flow and Doppler transthoracic echocardiogram is performed. 2. Left ventricular chamber dimension is normal. 3. Left ventricular systolic function is normal, estimated at 60-65%. 4. The left ventricular diastolic function is grade II diastolic dysfunction. 5. Global longitudinal strain is abnormal at -16 %. 6. There is mildly increased left ventricular wall thickness. 7. Left atrial chamber dimension is moderately enlarged. 8. There is mild aortic valve stenosis with a peak velocity of 242 cm/s, mean gradient of 15 mmHg, and aortic valve area of 1.5 cm2. 9. There is mild mitral valve stenosis. 10. There is mild mitral valve regurgitation. 11. There is mild tricuspid valve regurgitation. 12. Mild pulmonary hypertension, estimated pulmonary arterial systolic pressure is 41 mmHg. Left Ventricle Left ventricular chamber dimension is normal. Left ventricular systolic function is normal, estimated at 60-65%. There is mildly increased left ventricular wall thickness. The left ventricular diastolic function is grade II diastolic dysfunction. Global longitudinal strain is abnormal at -16 %. Right Ventricle Right ventricular chamber dimension is normal. Right ventricular systolic function is normal. Left Atria Left atrial chamber dimension is moderately enlarged. Right Atria Right atrial chamber dimension is normal. Atrial Septum Intact interatrial septum visualized by color flow imaging. Aortic Valve The aortic valve is trileaflet. There is mild aortic valve stenosis with a peak velocity of 242 cm/s, mean gradient of 15 mmHg, and aortic valve area of 1.5 cm2. There is trace aortic valve regurgitation. There is mild aortic valve calcification. Pulmonic Valve The pulmonic valve is normal. There is no pulmonic valve stenosis. There is trace pulmonic regurgitation. Mitral Valve The mitral valve has calcified annulus. There is mild mitral valve stenosis. There is mild mitral valve regurgitation. Tricuspid Valve The tricuspid valve leaflets are normal. There is no significant tricuspid valve stenosis. There is mild tricuspid valve regurgitation. Mild pulmonary hypertension, estimated pulmonary arterial systolic pressure is 41 mmHg. Pericardium/Pleural The pericardium appears normal. There is no pericardial effusion. Inferior Vena Cava Dilated inferior vena cava with >50% collapse upon inspiration consistent with elevated right atrial pressure, 10 mmHg. Aorta The aortic root size at the sinus of Valsalva is normal. Left Ventricular Outflow Tract Name Value Normal
[2022-06-15] MEDS: metroNIDAZOLE 500 MG/ISO 100ML 500 MG/100 ML BAG 100 MG IVPB ×5 (00:02→23:47)
[2022-06-15] MEDS: CENTRAL LINE FLUSH 10 ML IV PUSH ×3 (05:13→20:52)
[2022-06-15] MEDS: LEVOTHYROXINE SODIUM 50 MCG TABLET PO (05:13)
[2022-06-15 05:20] LABS: Hematocrit 24.3 % (42.0-52.0); Hemoglobin 8.3 g/dL (14.0-18.0); Immature Platelet Fraction Pct 6.4 % (0.9-11.2); Mean Corpuscular HGB Conc 34.2 g/dl (32-36); Mean Corpuscular Volume 114.1 fl (80-100); Mean Platelet Volume 10.8 fl (7.4-10.4); Platelet Count Result 34 k/mm3 (150-375); Red Blood Count 2.13 M/mm3 (4.6-6.20); Red Cell Distribution Width 13.5 % (11.5-14.5); White Blood Count 6.3 K/mm3 (4.5-10.0)
[2022-06-15 05:31] LABS: Alanine Aminotransferase 36 U/L (6-50); Albumin Level 2.7 g/dL (3.5-5.1); Alkaline Phosphatase 53 U/L (38-126); Anion Gap 9 mmol/L (8-16); Aspartate Amino Transferase 53 U/L (17-59); Bilirubin,Total 1.1 mg/dL (0.2-1.3); Blood Urea Nitrogen 16 mg/dL (9-20); Calcium 7.7 mg/dL (8.4-10.2); Carbon Dioxide 20 mmol/L (22-30); Chloride 103 mmol/L (98-107); Estimated CRCL calculation 57 ml/min; Estimated Glomerular Filt Rate > 60; Glucose 99 mg/dL (65-110); Magnesium 1.5 mg/dL (1.6-2.3); Potassium 3.3 mmol/L (3.4-5.0); Sodium 132 mmol/L (137-145)
[2022-06-15] MEDS: cefTRIAXone 2 GM in SODIUM CHLORIDE 0.9% IV 100 ML 200 ML IVPB (08:10)
[2022-06-15] MEDS: CALCIUM CARBONATE (OSCAL) 500 MG TABLET PO (08:13)
[2022-06-15] MEDS: MAGNESIUM OXIDE 200 MG TABLET PO (08:13)
[2022-06-15] MEDS: SOLIFENACIN 5 MG TABLET 10 MG PO (08:14)
[2022-06-15] MEDS: PANTOPRAZOLE SOD SESQUIHYDRATE 20 MG TAB PO (08:14)
[2022-06-15] MEDS: POTASSIUM CHLORIDE 20 MEQ PACKET (FOR LIQUID) 40 MEQ PO (09:03)
--- NOTE | 2022-06-15 10:47 | PM.IMPN ---
Progress Note: A&P Assessment and Plan (1) Septic shock: Code(s): A41.9 - Sepsis, unspecified organism; R65.21 - Severe sepsis with septic shock Status: Acute Assessment and Plan: sepsis is improved. Continue IV Rocephin and also IV Flagyl (2) ZORAN (acute kidney injury): Code(s): N17.9 - Acute kidney failure, unspecified Status: Acute Assessment and Plan: kidney function improved (3) Acute UTI: Code(s): N39.0 - Urinary tract infection, site not specified Status: Acute Assessment and Plan: IV Rocephin (4) Diarrhea: Code(s): R19.7 - Diarrhea, unspecified Status: Acute Assessment and Plan: Patient reports diarrhea. Could be gastroenteritis Check CT abdomen pelvis Check stool for C diff Start empiric Flagyl (5) CHF (congestive heart failure): Code(s): I50.9 - Heart failure, unspecified Status: Acute Assessment and Plan: appears to be compensated currently. (6) Thrombocytopenia: Code(s): D69.6 - Thrombocytopenia, unspecified Status: Acute Assessment and Plan: Patient has come chronic thrombocytopenia appears to be worse. This could be multifactorial secondary to sepsis or infection Monitor platelet count. Transfuse if needed platelet count is worse. Hematology consult if platelets continue to decline hit and DIC panel ordered (7) Hypothyroidism, unspecified: Code(s): E03.9 - Hypothyroidism, unspecified Status: Acute Assessment and Plan: Continue levothyroxine Check TSH (8) BPH without obstruction/lower urinary tract symptoms: Code(s): N40.0 - Benign prostatic hyperplasia without lower urinary tract symptoms Status: Acute Assessment and Plan: Greenwood in place (9) Bacteremia: Code(s): R78.81 - Bacteremia Status: Acute Assessment and Plan: 1 of 2 cultures grew MRSA. Will re-culture. Patient is improving clinically. echo ordered will start on vanc Subjective Date/time seen: 06/15/22 10:47 patient feels good. Labs improved. No new complaints Exam Narrative: General: Pt is alert awake and in NAD Lungs/Chest: Trachea central Clear BS B/L, bibasilar crackles Cardiac: RRR. Normal S1 S2. No murmurs Circulation: Pedal pulses are intact and symmetrical. Abdomen: Normal bowel sounds.. Soft. NT. ND. Extremities: No clubbing, cyanosis or edema. Warm : Greenwood in place Neurologic: Follows commands. Moves all 4 extremities PERRL AO x3 Skin: No Rash Objective Data Vital Signs Vital Signs: Vital Signs - 24 hr 06/14/22 11:15 06/14/22 12:00 06/14/22 14:00 Temperature 98.1 F 99.2 F Pulse Rate 91 92 Respiratory Rate 22 H 18 Blood Pressure 105/58 L 103/80 Pulse Oximetry 96 99 Oxygen Delivery Room Air 06/14/22 12:00 06/14/22 14:00 06/14/22 15:30 Temperature Pulse Rate 88 97 Respiratory Rate Blood Pressure Pulse Oximetry Oxygen Delivery Room Air 06/14/22 16:00 06/14/22 18:00 06/14/22 20:00 Temperature 99.0 F 98.4 F Pulse Rate 102 H 95 Respiratory Rate 23 H 22 H Blood Pressure 110/59 L 123/70 Pulse Oximetry 95 98 Oxygen Delivery Room Air 06/14/22 20:00 06/15/22 00:00 06/14/22 20:00 Temperature 98.3 F Pulse Rate 86 86 91 Respiratory Rate 15 Blood Pressure 126/66 Pulse Oximetry 96 Oxygen Delivery 06/15/22 00:00 06/15/22 04:00 06/15/22 04:00 Temperature 97.8 F 98.2 F Pulse Rate 85 82 83 Respiratory Rate 22 H 21 H Blood Pressure 129/61 116/60 Pulse Oximetry 96 97 Oxygen Delivery Intake/Output Intake/Output: Intake & Output 06/12/22 06/13/22 06/14/22 06/15/22 23:59 23:59 23:59 23:59 Intake Total 3050 1950 740 Output Total 200 1400 625 Balance 2850 550 115 Meds/Results Medications: Active Medications Generic Name Dose Route Start Last Admin Trade Name Freq PRN Reason Stop Dose Admin Acetaminophen 650 mg 06/14/22
[2022-06-15 11:40] LABS: Immature Platelet Fraction Pct 6.4 % (0.9-11.2); Mean Platelet Volume 10.8 fl (7.4-10.4); Platelet Count Result 37 k/mm3 (150-375)
[2022-06-15 11:49] LABS: INR 1.1; Partial Thromboplastin Time 28.8 SECONDS (22.3-36.8); Prothrombin Time 14.2 Seconds (11.1-14.7)
[2022-06-15 11:50] LABS: Fibrinogen 480 mg/dl (215-510)
[2022-06-15 11:53] LABS: Magnesium 1.6 mg/dL (1.6-2.3)
[2022-06-15 12:23] LABS: D Dimer 4.26 ug/mL (<0.48)
[2022-06-15] MEDS: MORPHINE SULFATE (*CRX) 2 MG/ML INJ IV PUSH (14:00)
--- NOTE | 2022-06-15 17:45 | PM.PNGS ---
Progress Note: A&P Assessment and Plan (1) Abnormal computerized tomography of biliary tract: Code(s): R93.2 - Abnormal findings on diagnostic imaging of liver and biliary tract Status: Acute Assessment and Plan: gallstones noted on CT scan with question of gallbladder wall thickening. Patient has no symptoms of gallbladder disease and no clinical findings of gallbladder disease. Hepatobiliary scan today was negative. No need for further gallbladder workup. Will sign off. Subjective Subjective Date/Time Seen: 06/15/22 17:45 Patient reports: no new complaints and diarrhea ( Only 1 BM through the night) Interval history: patient denies any abdominal pain. Review of Systems Review of Systems: All systems reviewed & are unremarkable except as noted in HPI and below ( HPI) Exam Const: General: comfortable and awake Nutritional Appearance: average body habitus GI: Inspection: non-distended and scaphoid GI Palp: Yes Soft to palpation and No Tenderness to palpation present (GI) Objective Data Vital Signs Vital Signs: Vital Signs - 24 hr 06/14/22 18:00 06/14/22 20:00 06/14/22 20:00 Temperature 36.9 C Pulse Rate 95 86 Respiratory Rate 22 H Blood Pressure 123/70 Pulse Oximetry 98 Oxygen Delivery Room Air 06/15/22 00:00 06/14/22 20:00 06/15/22 00:00 Temperature 36.8 C 36.6 C Pulse Rate 86 91 85 Respiratory Rate 15 22 H Blood Pressure 126/66 129/61 Pulse Oximetry 96 96 Oxygen Delivery 06/15/22 04:00 06/15/22 04:00 06/15/22 08:00 Temperature 36.8 C Pulse Rate 82 83 87 Respiratory Rate 21 H Blood Pressure 116/60 Pulse Oximetry 97 Oxygen Delivery 06/15/22 12:00 06/15/22 14:45 06/15/22 13:40 Temperature 36.4 C Pulse Rate 82 84 Respiratory Rate 21 H Blood Pressure 129/66 Pulse Oximetry 96 Oxygen Delivery Room Air 06/15/22 16:00 Temperature Pulse Rate 82 Respiratory Rate Blood Pressure Pulse Oximetry Oxygen Delivery Intake/Output Intake/Output: Intake & Output 06/12/22 06/13/22 06/14/22 06/15/22 23:59 23:59 23:59 23:59 Intake Total 3050 1950 1340 Output Total 200 1400 625 Balance 2850 036 715 Meds/Results Medications: Active Medications Generic Name Dose Route Start Last Admin Trade Name Freq PRN Reason Stop Dose Admin Acetaminophen 650 mg 06/14/22 08:01 Acetaminophen 325 Mg Tablet PO Q4H PRN Mild Pain (1-3) or Fever Albuterol 1 puff 06/14/22 00:07 Albuterol Sulfate (*Sp) Aerosol 1 Puff INHALATION QID PRN Shortness Of Breath Atorvastatin Calcium 10 mg 06/14/22 00:30 06/14/22 20:14 Atorvastatin 10 Mg Tablet PO 10 mg HS NEHA Administration Budesonide 6 mg 06/14/22 00:07 Budesonide 3 Mg Cap.Sr.24h PO DAILY PRN Allergy Symptoms Calcium Carbonate 500 mg 06/14/22 09:00 06/15/22 08:13 Calcium Carbonate (Oscal) 500 Mg Tablet PO 500 mg QAM NEHA Administration Ceftriaxone Sodium 2 gm/ 100 mls @ 200 mls/hr 06/14/22 08:00 06/15/22 08:40 Sodium Chloride IVPB Infused Q24H NEHA Infusion Metronidazole 500 mg in 100 mls @ 100 mls/hr 06/14/22 12:00 06/15/22 17:13 Flagyl 500 Mg/Iso Soln 100 Ml IVPB 100 mls/hr Q6HR NEHA Administration Vancomycin HCl 1,750 mg in 500 mls @ 250 mls/hr 06/15/22 12:00 06/15/22 14:39 Vancomycin 1,750 Mg/D5w 500 Ml IVPB Infused Q24H NEHA Infusion Levothyroxine Sodium 50 mcg 06/14/22 06:30 06/15/22 05:13 Levothyroxine Sodium 50 Mcg Tablet PO 50 mcg DAILY@0630 NEHA Administration Magnesium Oxide 200 mg 06/14/22 09:00 06/15/22 08:13 Magnesium Oxide 200 Mg Tablet PO 200 mg DAILY NEHA Administration Pantoprazole Sodium 20 mg 06/14/22 09:00 06/15/22 08:14 Pantoprazole Sod Sesquihydrate 20 Mg Tab PO 20 mg QAM NEHA Administration Perflutren Lipid Microsphere 0 ml 06/15/22 08:35 Perflutren Lipid Microspheres 1.5 Ml Vial Diluted To 10 Ml Total Volume IV PUS
[2022-06-15] MEDS: TAMSULOSIN HCL 0.4 MG CAPSULE PO (20:51)
[2022-06-15] MEDS: ATORVASTATIN 10 MG TABLET PO (20:51)
[2022-06-16] VITALS (12 sets, daily range): BP systolic 88–118; BP diastolic 50–72; PULSE 69–152; RESP 16–18; TEMP 36.4–37.4; O2SAT 92–95
[2022-06-16 06:44] LABS: Hematocrit 25.1 % (42.0-52.0); Hemoglobin 8.6 g/dL (14.0-18.0); Immature Platelet Fraction Pct 10.6 % (0.9-11.2); Mean Corpuscular HGB Conc 34.3 g/dl (32-36); Mean Corpuscular Hemoglobin 38.1 pg (26-34); Mean Corpuscular Volume 111.1 fl (80-100); Mean Platelet Volume 11.8 fl (7.4-10.4); Platelet Count Result 36 k/mm3 (150-375); Red Blood Count 2.26 M/mm3 (4.6-6.20); Red Cell Distribution Width 13.2 % (11.5-14.5)
[2022-06-16 06:54] LABS: Alanine Aminotransferase 39 U/L (6-50); Albumin Level 2.8 g/dL (3.5-5.1); Alkaline Phosphatase 60 U/L (38-126); Anion Gap 7 mmol/L (8-16); Aspartate Amino Transferase 40 U/L (17-59); Blood Urea Nitrogen 12 mg/dL (9-20); Calcium 7.6 mg/dL (8.4-10.2); Carbon Dioxide 21 mmol/L (22-30); Chloride 101 mmol/L (98-107); Estimated CRCL calculation 64 ml/min; Estimated Glomerular Filt Rate > 60; Glucose 94 mg/dL (65-110); Magnesium 1.6 mg/dL (1.6-2.3); Potassium 3.3 mmol/L (3.4-5.0); Sodium 129 mmol/L (137-145)
[2022-06-16] MEDS: cefTRIAXone 2 GM in SODIUM CHLORIDE 0.9% IV 100 ML 200 ML IVPB (09:35)
[2022-06-16] MEDS: CALCIUM CARBONATE (OSCAL) 500 MG TABLET PO (09:37)
[2022-06-16] MEDS: MAGNESIUM OXIDE 200 MG TABLET PO (09:37)
[2022-06-16] MEDS: PHENAZOPYRIDINE HCL 100 MG TABLET PO (09:37)
[2022-06-16] MEDS: POTASSIUM CHLORIDE 20 MEQ PACKET (FOR LIQUID) 40 MEQ PO (09:37)
[2022-06-16] MEDS: PANTOPRAZOLE SOD SESQUIHYDRATE 20 MG TAB PO (09:37)
[2022-06-16] MEDS: SOLIFENACIN 5 MG TABLET 10 MG PO (09:37)
[2022-06-16] MEDS: FIDAXOMICIN 200 MG TABLET PO ×2 (09:38→21:28)
[2022-06-16] MEDS: METOPROLOL TARTRATE INJ 5 MG/5 ML VIAL IV PUSH ×2 (10:48→22:15)
[2022-06-16] MEDS: SODIUM CHLORIDE 0.9% IV 250 ML IV CONT (10:48)
[2022-06-16 11:07] LABS: NT Pro B Type Natriuretic Pept 2690 pg/mL (5-100)
--- NOTE | 2022-06-16 12:08 | PM.IMPN ---
Progress Note: A&P Assessment and Plan (1) Septic shock: Code(s): A41.9 - Sepsis, unspecified organism; R65.21 - Severe sepsis with septic shock Status: Acute Assessment and Plan: sepsis is improved. Continue IV Rocephin For UTI. Positive blood cultures for MRSA. IV vancomycin. Echo negative. No other focus of infection. No other symptoms. (2) ZORAN (acute kidney injury): Code(s): N17.9 - Acute kidney failure, unspecified Status: Acute Assessment and Plan: kidney function improved (3) Acute UTI: Code(s): N39.0 - Urinary tract infection, site not specified Status: Acute Assessment and Plan: IV Rocephin (4) Diarrhea: Code(s): R19.7 - Diarrhea, unspecified Status: Acute Assessment and Plan: Positive C diff. oral Dificid (5) CHF (congestive heart failure): Code(s): I50.9 - Heart failure, unspecified Status: Acute Assessment and Plan: appears to be compensated currently. (6) Thrombocytopenia: Code(s): D69.6 - Thrombocytopenia, unspecified Status: Acute Assessment and Plan: Patient has come chronic thrombocytopenia appears to be worse. This could be multifactorial secondary to sepsis or infection Monitor platelet count. Transfuse if needed platelet count is worse. Hematology consult if platelets continue to decline hit and DIC panel reviewed. (7) Hypothyroidism, unspecified: Code(s): E03.9 - Hypothyroidism, unspecified Status: Acute Assessment and Plan: Continue levothyroxine Check TSH (8) BPH without obstruction/lower urinary tract symptoms: Code(s): N40.0 - Benign prostatic hyperplasia without lower urinary tract symptoms Status: Acute Assessment and Plan: Greenwood in place (9) Bacteremia: Code(s): R78.81 - Bacteremia Status: Acute Assessment and Plan: Positive for MRSA. Will re-culture tomorrow after vancomycin has been given for 48hours. Patient is improving clinically. echo ordered will start on vanc (10) Elevated d-dimer: Code(s): R79.89 - Other specified abnormal findings of blood chemistry Status: Acute Assessment and Plan: likely related to sepsis. Bilateral lower extremity venous duplex negative Subjective Date/time seen: 06/16/22 12:08 no new complaints. He reports he is feeling better. Tachycardia noted. Exam Narrative: General: Pt is alert awake and in NAD Lungs/Chest: Trachea central Clear BS B/L, bibasilar crackles Cardiac: RRR. Normal S1 S2. No murmurs Circulation: Pedal pulses are intact and symmetrical. Abdomen: Normal bowel sounds.. Soft. NT. ND. Extremities: No clubbing, cyanosis or edema. Warm : Greenwood in place Neurologic: Follows commands. Moves all 4 extremities PERRL AO x3 Skin: No Rash Objective Data Vital Signs Vital Signs: Vital Signs - 24 hr 06/15/22 14:45 06/15/22 13:40 06/15/22 16:00 Temperature 97.6 F Pulse Rate 84 82 Respiratory Rate 21 H Blood Pressure 129/66 Pulse Oximetry 96 Oxygen Delivery Room Air 06/15/22 20:00 06/15/22 20:00 06/15/22 20:00 Temperature 97.4 F L Pulse Rate 88 90 88 Respiratory Rate 18 18 Blood Pressure 124/57 L Pulse Oximetry 94 94 Oxygen Delivery Room Air 06/15/22 23:18 06/16/22 00:00 06/16/22 04:00 Temperature 98 F 97.8 F Pulse Rate 83 87 72 Respiratory Rate 17 18 Blood Pressure 117/65 118/70 Pulse Oximetry 93 94 Oxygen Delivery 06/16/22 04:00 06/16/22 08:00 06/16/22 10:48 Temperature 98.1 F Pulse Rate 93 92 152 H Respiratory Rate 16 Blood Pressure 112/62 Pulse Oximetry 94 Oxygen Delivery 06/16/22 11:15 Temperature Pulse Rate Respiratory Rate Blood Pressure Pulse Oximetry Oxygen Delivery Room Air Intake/Output Intake/Output: Intake & Output 06/13/22 06/14/22 06/15/22 06/16/22 23:59 23:59 23:59 23:59 Intake Total 305
--- NOTE | 2022-06-16 12:09 | ECG_ITS ---
Measurements Intervals [place] Rate: 107 P: [place]: 0 QRS: -19 QRSD: 117 T: 37 QT: 323 QTc: 432 Interpretive Statements ATRIAL FIBRILLATION WITH RAPID VENTRICULAR RESPONSE MODERATE INTRAVENTRICULAR CONDUCTION DELAY [110+ ms QRS DURATION] NONSPECIFIC ST SEGMENT ABNORMALITY] ABNORMAL RHYTHM ECG COMPARED TO ECG 06/13/2022 15:01:15 ATRIAL FIBRILLATION NOW REPLACES SINUS RHYTHM Electronically Signed On 06-16-2022 14:13:46 CDT by Michelet Saenz M.D.
[2022-06-16] MEDS: CENTRAL LINE FLUSH 10 ML IV PUSH ×2 (12:56→21:30)
[2022-06-16] MEDS: METOPROLOL TARTRATE 25 MG TABLET PO (12:56)
--- NOTE | 2022-06-16 13:10 | PCPTNOTE ---
Attempted to see patient for PT, however patient's heart rate was 120-150s laying in bed. Patient is not appropriate for therapy this date. RN aware and RN agrees patient is not appropriate for PT.
--- NOTE | 2022-06-16 15:46 | PM.CNCAR ---
Assessment and Plan Assessment and plan (1) Atrial fibrillation with RVR: Code(s): I48.91 - Unspecified atrial fibrillation Status: Acute Plan This is an 82-year-old man with previous aortic valve replacement was in the hospital with sepsis. Blood cultures have been found to be positive for methicillin-resistant staph. There is no immediate evidence on his echocardiogram that his prosthetic valve is infected however this is obviously always a concern. In the stress of this sepsis he now has developed atrial fibrillation. He has not had any atrial fib since the postop AFib that was noted in his chart a number of years ago following his operation. I am going to start out by transitioning his beta-bhanu to sotalol and anticoagulated systemically with apixaban. Given his age I believe 2.5 mg q.12 hours is the standard recommended dosage. It is extremely important that he be treated with antibiotics for a long enough period of time where we are absolutely certain that his blood is sterilized given the presence of a aortic valve prosthesis. We hope that the sotalol will medically convert him to sinus rhythm. If he persists in atrial fib he will need to be electrically cardioverted while he is in the hospital since this is acute onset AFib. Thank you for consulting us to see this nice gentleman and participate in his case Michelet Saenz MD [facility] History of Present Illness History of Present Illness Consult date/time: 06/16/22 15:46 Consult reason: atrial fibrillation Reason For Visit: UTI Narrative: This is an 82-year-old man I am seeing at the request of the hospitalist this afternoon be to assist with management of atrial fibrillation. The patient is known to my partner, Dr. Melton and has a history of aortic valve disease. The patient was seen in our office a number of years ago and found to have severe aortic valve stenosis he was referred for surgical aortic valve replacement which took place in 2016 at [facility]. He has a 25 mm bioprosthetic aortic valve and has been doing well since then. According to the records he did have some atrial fibrillation postoperatively which was treated with amiodarone for short time and then and then weaned off. He has been doing well with regard to his valvular heart disease and has had regular follow-up visits in the office. He was hospitalized here on Sunday of this week with symptoms of hypotension he said he had some chills but no fever. He was thought to possibly have a urinary sepsis situation and was put on antibiotics. His blood cultures however have grown methicillin-resistant Staph and he is now on vancomycin any feeling better. Earlier today he became tachycardic and electrocardiogram developed atrial fibrillation. He was in sinus rhythm on admission earlier this week. He is not really aware of the sense of palpitations or to our tachycardia at this time his heart rate is in the 120-140 range. He is very comfortable of watching television and does not have any other complaints. Echocardiogram done during this visit appears to show good left ventricular systolic function and normal function of his aortic valve bioprosthesis. There is no med mention of aortic regurgitation. His medications which are pertinent to this currently include aspirin, atorvastatin and metoprolol. Review of Systems Constitutional: Constitutional: Reports no additional constitutional complaints Eyes: Eyes: Reports no additional eye complaints ENT: Reports system reviewed and no additional complaints, except as documented Cardiovascular: Cardiovascular: Reports no additional cardiovascular complaints Respiratory: Respiratory: Reports no additional respiratory complaints Gastrointestinal: Gastrointestinal: Reports no additional gastrointestinal complaints Musculoskeletal: Musculoskeletal: Reports no additional musculoskeletal complaints Integumentary/Breasts: Skin/Breast: Reports sy
--- NOTE | 2022-06-16 16:42 | PM.CNGS ---
Assessment and Plan Assessment and plan (1) Septic shock: Code(s): A41.9 - Sepsis, unspecified organism; R65.21 - Severe sepsis with septic shock Status: Acute Assessment and Plan: Essentially resolved. Patient now stable on medical-surgical floor. Etiology still not entirely clear. Urine cultures were negative. Patient did come back with C difficile colitis. Does not appear to have fulminant toxic colitis. Continuing on antibiotics. (2) Abnormal computerized tomography of biliary tract: Code(s): R93.2 - Abnormal findings on diagnostic imaging of liver and biliary tract Status: Acute Assessment and Plan: Imaging findings are suspicious for cholecystitis with gallstones however, patient really has no symptoms of this after talking with him, his , and his daughter. He has no tenderness in the right upper quadrant at all. No epigastric or other upper abdominal tenderness. Hepatobiliary scan has been ordered for tomorrow, 06/15/2022. I doubt that cholecystitis is the cause of his septic condition although will be interested to see the results of the hepatobiliary scan. (3) C. difficile colitis: Code(s): A04.72 - Enterocolitis due to Clostridium difficile, not specified as recurrent Status: Acute Assessment and Plan: Present on admission. Patient on metronidazole intravenously. Okay for oral medications per from my perspective. History of Present Illness Consult details Consult date: 06/14/22 ( patient seen on 06/14/2022. Consultation dictated 06/16/2022.) Reason for consult: other ( Abnormal CT scan of the gallbladder) Requesting physician: Marcos Amador MD Narrative: Patient is an 82-year-old man who came to the emergency room on 06/13 in the afternoon with weakness and having fallen. He had felt well for a while with poor appetite and actually vomited after dinner the day before. Evaluation in the room emergency room showed him to be in septic shock. A central line was placed in IV pressors were started. He was admitted to the intensive care unit. It was difficult to tell exactly the source of the sepsis initially. Eventually a history of diarrhea was obtained and this morning C difficile study came back positive. He has since been greatly improved and was transferred to the [facility] floor. When I interviewed the patient and talk with his and daughter, it appears that he has had problems with urination and urinary tract infections for at least 6 months. He has been treated with antibiotics for these off and on multiple times. The diarrhea has been going on for quite some time as well probably 2 or 3 weeks. Patient has been started on metronidazole. When he was in the intensive care unit, it was not clear the source of his sepsis and septic shock. A CT scan of the chest abdomen and pelvis was done. The CT was highly suspicious for gallbladder disease showing gallstones and some gallbladder wall thickening. Patient was seen regarding possible cholecystitis and the possibility of this as the source of his infection and present illness. In talking with the patient, his and his daughter, he has had no symptoms of postprandial upper abdominal pain. He has not had a good appetite but no pain after eating. He has not had any pain in the epigastrium right upper quadrant or left upper quadrant. His symptoms have mostly been of declining health and loose stools. There are no particular foods that trigger nausea vomiting or upper abdominal pain either. Review of Systems Review of Systems: All systems reviewed & are unremarkable except as noted in HPI and below ( HPI and those items noted below) Constitutional: Constitutional: Denies chills, Reports fatigue, Denies fever(s), Reports lethargy, Reports poor appetite and Reports weakness Cardiovascular: Cardiovascular: Denies chest pain, Denies diaphoresis, Denies dyspnea and Denies paroxysmal nocturnal dyspnea Respir
[2022-06-16] MEDS: TAMSULOSIN HCL 0.4 MG CAPSULE PO (21:27)
[2022-06-16] MEDS: SOTALOL HCL 80 MG TABLET PO (21:28)
[2022-06-16] MEDS: ATORVASTATIN 10 MG TABLET PO (21:28)
[2022-06-16] MEDS: APIXABAN 2.5 MG TABLET PO (21:28)
[2022-06-16] MEDS: METOPROLOL TARTRATE 50 MG TAB PO (22:18)
[2022-06-17] VITALS (8 sets, daily range): BP systolic 90–106; BP diastolic 56–75; PULSE 120–133; RESP 16–20; TEMP 36.6–37.2; O2SAT 95–97
[2022-06-17 05:17] LABS: Hemoglobin 8.7 g/dL (14.0-18.0); Immature Platelet Fraction Pct 11.5 % (0.9-11.2); Mean Corpuscular HGB Conc 34.8 g/dl (32-36); Mean Corpuscular Hemoglobin 38.5 pg (26-34); Mean Corpuscular Volume 110.6 fl (80-100); Platelet Count Result 51 k/mm3 (150-375); Red Blood Count 2.26 M/mm3 (4.6-6.20); Red Cell Distribution Width 13.1 % (11.5-14.5); White Blood Count 5.4 K/mm3 (4.5-10.0)
[2022-06-17 05:26] LABS: Alanine Aminotransferase 34 U/L (6-50); Albumin Level 2.6 g/dL (3.5-5.1); Alkaline Phosphatase 61 U/L (38-126); Anion Gap 4 mmol/L (8-16); Aspartate Amino Transferase 33 U/L (17-59); Bilirubin,Total 0.8 mg/dL (0.2-1.3); Blood Urea Nitrogen 12 mg/dL (9-20); Calcium 7.4 mg/dL (8.4-10.2); Carbon Dioxide 24 mmol/L (22-30); Chloride 101 mmol/L (98-107); Estimated CRCL calculation 26 ml/min; Estimated Glomerular Filt Rate > 60; Glucose 90 mg/dL (65-110); Magnesium 1.6 mg/dL (1.6-2.3); Potassium 3.4 mmol/L (3.4-5.0); Sodium 129 mmol/L (137-145)
[2022-06-17] MEDS: LEVOTHYROXINE SODIUM 50 MCG TABLET PO (06:07)
[2022-06-17] MEDS: CENTRAL LINE FLUSH 10 ML IV PUSH ×3 (06:09→22:28)
--- NOTE | 2022-06-17 07:30 | PC.NURSE ---
Patient came up from the ER with a Disheveled look. Patient words is hard to understand, patient is comfortable in bed relaxing, no complaint of pain, SOB or discomfort.
[2022-06-17] MEDS: cefTRIAXone 2 GM in SODIUM CHLORIDE 0.9% IV 100 ML 200 ML IVPB (08:19)
[2022-06-17] MEDS: SOTALOL HCL 80 MG TABLET PO ×2 (08:21→22:27)
[2022-06-17] MEDS: FIDAXOMICIN 200 MG TABLET PO ×2 (08:21→22:27)
[2022-06-17] MEDS: SOLIFENACIN 5 MG TABLET 10 MG PO (08:21)
[2022-06-17] MEDS: MAGNESIUM OXIDE 200 MG TABLET PO (08:21)
[2022-06-17] MEDS: CALCIUM CARBONATE (OSCAL) 500 MG TABLET PO (08:22)
[2022-06-17] MEDS: APIXABAN 2.5 MG TABLET PO (08:22)
[2022-06-17] MEDS: PANTOPRAZOLE SOD SESQUIHYDRATE 20 MG TAB PO (08:22)
--- NOTE | 2022-06-17 10:27 | PM.IMPN ---
Progress Note: A&P Assessment and Plan (1) Septic shock: Code(s): A41.9 - Sepsis, unspecified organism; R65.21 - Severe sepsis with septic shock Status: Acute Assessment and Plan: sepsis is improved. Continue IV Rocephin For UTI. Positive blood cultures for MRSA. IV vancomycin. Echo negative. No other focus of infection. No other symptoms. (2) ZORAN (acute kidney injury): Code(s): N17.9 - Acute kidney failure, unspecified Status: Acute Assessment and Plan: kidney function improved (3) Acute UTI: Code(s): N39.0 - Urinary tract infection, site not specified Status: Acute Assessment and Plan: IV Rocephin (4) Diarrhea: Code(s): R19.7 - Diarrhea, unspecified Status: Acute Assessment and Plan: Positive C diff. oral Dificid (5) CHF (congestive heart failure): Code(s): I50.9 - Heart failure, unspecified Status: Acute Assessment and Plan: appears to be compensated currently. (6) Thrombocytopenia: Code(s): D69.6 - Thrombocytopenia, unspecified Status: Acute Assessment and Plan: Patient has come chronic thrombocytopenia appears to be worse. This could be multifactorial secondary to sepsis or infection Monitor platelet count. Transfuse if needed platelet count is improving (7) Hypothyroidism, unspecified: Code(s): E03.9 - Hypothyroidism, unspecified Status: Acute Assessment and Plan: Continue levothyroxine Check TSH (8) BPH without obstruction/lower urinary tract symptoms: Code(s): N40.0 - Benign prostatic hyperplasia without lower urinary tract symptoms Status: Acute Assessment and Plan: Greenwood in place (9) Bacteremia: Code(s): R78.81 - Bacteremia Status: Acute Assessment and Plan: Positive for MRSA. Will re-culture tomorrow after vancomycin has been given for 48hours. Patient is improving clinically. echo ordered will start on vanc (10) Elevated d-dimer: Code(s): R79.89 - Other specified abnormal findings of blood chemistry Status: Acute Assessment and Plan: likely related to sepsis. Bilateral lower extremity venous duplex negative Subjective Date/time seen: 06/17/22 10:27 feeling better Exam Narrative: General: Pt is alert awake and in NAD Lungs/Chest: Trachea central Clear BS B/L, bibasilar crackles Cardiac: RRR. Normal S1 S2. No murmurs Circulation: Pedal pulses are intact and symmetrical. Abdomen: Normal bowel sounds.. Soft. NT. ND. Extremities: No clubbing, cyanosis or edema. Warm : Greenwood in place Neurologic: Follows commands. Moves all 4 extremities PERRL AO x3 Skin: No Rash Objective Data Vital Signs Vital Signs: Vital Signs - 24 hr 06/16/22 10:48 06/16/22 11:15 06/16/22 12:00 Temperature 97.6 F Pulse Rate 152 H 91 Respiratory Rate 18 Blood Pressure 88/60 L Pulse Oximetry 95 Oxygen Delivery Room Air 06/16/22 12:09 06/16/22 12:56 06/16/22 12:00 Temperature Pulse Rate 148 H 144 H Respiratory Rate Blood Pressure 98/72 L Pulse Oximetry Oxygen Delivery 06/16/22 16:00 06/16/22 16:46 06/16/22 16:00 Temperature 97.7 F Pulse Rate 105 H 138 H Respiratory Rate 16 Blood Pressure 90/50 L 90/58 L Pulse Oximetry 95 Oxygen Delivery 06/16/22 20:00 06/16/22 22:15 06/16/22 22:18 Temperature 99.3 F Pulse Rate 69 90 126 H Respiratory Rate 16 Blood Pressure 95/59 L Pulse Oximetry 92 Oxygen Delivery 06/17/22 00:00 06/17/22 04:00 06/17/22 04:00 Temperature 98.5 F 98.9 F Pulse Rate 120 H 122 H 129 H Respiratory Rate 18 16 Blood Pressure 90/69 L 92/61 L Pulse Oximetry 95 95 Oxygen Delivery 06/17/22 08:21 06/17/22 08:00 Temperature 98.7 F Pulse Rate 120 H 120 H Respiratory Rate 16 Blood Pressure 106/75 Pulse Oximetry 97 Oxygen Delivery Intake/Output Intake/Output: Intake
--- NOTE | 2022-06-17 11:52 | PCOTNOTE ---
Attempted to see pt of occupational therapy tx this AM. Pt declined to get out of bed stating he was too tired and did not feel up for a therapy treatment. Pt was educated on the benefits of participation in therapy for independence with daily occupations, however, pt continued to refuse. Pt also refused to get out of bed and sit in the chair for lunch. Will continue per poc duration/frequency tomorrow.
[2022-06-17] MEDS: ACETAMINOPHEN 325 MG TABLET 650 MG PO (12:59)
--- NOTE | 2022-06-17 13:15 | ECG_ITS ---
Measurements Intervals [place] Rate: 111 P: [place]: 0 QRS: -23 QRSD: 118 T: 59 QT: 349 QTc: 475 Interpretive Statements ATRIAL FLUTTER/TACHYCARDIA WITH RAPID VENTRICULAR RESPONSE BORDERLINE LEFT AXIS DEVIATION [QRS AXIS < -20] MODERATE INTRAVENTRICULAR CONDUCTION DELAY [110+ ms QRS DURATION] NONSPECIFIC ST AND t-WAVE ABNORMALITY ABNORMAL RHYTHM ECG COMPARED TO ECG 06/16/2022 14:05:32 ATRIAL FLUTTER NOW PRESENT INSTEAD OF ATRIAL FIBRILLATION Electronically Signed On 06-17-2022 18:53:09 CDT by Joanne Melton M.D.
[2022-06-17 14:33] LABS: Troponin I 0.024 ng/mL (0.000-0.034)
--- NOTE | 2022-06-17 15:15 | PM.PNCARD ---
Progress Note: A&P Assessment and Plan (1) Atrial fibrillation with RVR: Code(s): I48.91 - Unspecified atrial fibrillation Status: Acute Assessment and Plan: New onset AFib RVR due to sepsis since physiologic stress. Rate is still a little fast, taking sotalol now instead of metoprolol medication monitoring: Sotalol needs to be followed for is proarrhythmic effect. The QTC is acceptable today. Anticoagulated with Eliquis. Will increase the dose to 5 mg daily as the patient's renal function and weight are good. (2) Bacteremia: Code(s): R78.81 - Bacteremia Status: Acute Assessment and Plan: Has methicillin-resistant Staph bacteremia And sepsis. On antibiotics, appears to be improving. (3) S/P aortic valve replacement with bioprosthetic valve: Code(s): Z95.3 - Presence of xenogenic heart valve Status: Acute Assessment and Plan: With a bacteremia there was concern for endocarditis. Echo not suggestive of endocarditis getting repeat blood cultures tomorrow (4) Acute hypotension: Code(s): I95.9 - Hypotension, unspecified Status: Acute Assessment and Plan: Patient has been hypotensive the last 24 hours with blood pressures in the 90s, a little lightheaded. Start IV fluids, normal saline 100 cc an hour X 1 liter add midodrine 2.5 mg t.i.d. for the short term (5) Thrombocytopenia: Code(s): D69.6 - Thrombocytopenia, unspecified Status: Acute Assessment and Plan: Platelet count dropped to 51 K If he continues to decline we will need to stop the Eliquis. daily CBC (6) Chest wall pain: Code(s): R07.89 - Other chest pain Status: Acute Assessment and Plan: Chest discomfort, atypical. EKG without acute changes very minimal elevation of troponin Probably musculoskeletal. Subjective Date/time seen: Patient with a history of aortic valve replacement, admitted with sepsis. Developed AFib RVR. Date of service 06/17/22 15:15 Patient feels weak, little lightheaded when out of bed. However was up in chair and walking. Appetite is a little better. Has some left pectoral chest discomfort which was described as an ache, nonpleuritic, nonpositional and nontender but, to the patient, felt musculoskeletal. faded away. EKG on my personal review showed atrial flutter with an elevated heart rate, and nonspecific ST changes, no change compared to yesterday's tracing. QTC was 4 and 75 milliseconds, acceptable.Telemetry shows AFib rate 100- 120 for the most part ; no palpitations. Blood pressure running in the 90s. Review of Systems Review of Systems: chest pain as described above, lightheadedness, no shortness of breath, no abdominal pain, some anorexia. Exam Const: General: cooperative, healthy appearing and comfortable; No confusion Orientation/consciousness: oriented to person, patient oriented x3 and No confusion Other: and daughter at bedside. Appears tired but in no distress. HENMT: Mouth: Yes moist mucous membranes Eyes: EOM: EOMs intact bilaterally Neck: Neck: supple Resp: Effort & Inspection: normal respiratory effort Auscultation: clear to auscultation bilaterally Cardio: Rate: regular rate and tachycardic Rhythm: regular rhythm and abnormal rhythm irregularly irregular Other: no chest wall pain GI: Inspection: normal to inspection GI Palp: No abdominal tenderness Skin: General skin exam: no rashes or lesions noted Neuro: General: oriented to person, patient oriented x3 and No confusion Extrem: Right lower extremity: no edema Left lower extremity: no edema Other: Warm extremities Psych: Appearance: grossly normal Mental Status: mental status grossly normal Objective Data Vital Signs Vital Signs: Vital Signs - 24 hr 06/16/22 16:00 06/16/22 16:46 06/16/22 16:00 Temperature 97.7 F Pulse Rate 105 H 138 H Res
[2022-06-17] MEDS: SODIUM CHLORIDE 0.9% IV 1,000 ML 100 ML IV CONT (18:00)
[2022-06-17] MEDS: MIDODRINE HCL 2.5 MG TABLET PO (18:01)
[2022-06-17 21:03] LABS: Troponin I 0.023 ng/mL (0.000-0.034)
[2022-06-17] MEDS: TAMSULOSIN HCL 0.4 MG CAPSULE PO (22:27)
[2022-06-17] MEDS: ATORVASTATIN 10 MG TABLET PO (22:27)
[2022-06-17] MEDS: guaiFENesin 600 MG/DEXTROMETHORPHAN 30 MG SR TAB 12 HR 1 TAB PO (22:27)
[2022-06-17] MEDS: APIXABAN 5 MG TABLET PO (22:28)
[2022-06-18] VITALS (9 sets, daily range): BP systolic 94–108; BP diastolic 58–92; PULSE 109–130; RESP 16–20; TEMP 36.4–37.2; O2SAT 94–96
[2022-06-18] MEDS: LEVOTHYROXINE SODIUM 50 MCG TABLET PO (05:43)
[2022-06-18] MEDS: SODIUM CHLORIDE 0.9% IV 1,000 ML 100 ML IV CONT ×2 (05:45→13:20)
[2022-06-18 06:02] LABS: Hematocrit 26.8 % (42.0-52.0); Hemoglobin 9.2 g/dL (14.0-18.0); Immature Platelet Fraction Pct 11.7 % (0.9-11.2); Mean Corpuscular HGB Conc 34.3 g/dl (32-36); Mean Corpuscular Volume 110.7 fl (80-100); Mean Platelet Volume 11.3 fl (7.4-10.4); Platelet Count Result 78 k/mm3 (150-375); Red Blood Count 2.42 M/mm3 (4.6-6.20); Red Cell Distribution Width 13.1 % (11.5-14.5); White Blood Count 5.3 K/mm3 (4.5-10.0)
[2022-06-18] MEDS: CENTRAL LINE FLUSH 10 ML IV PUSH ×3 (06:06→20:13)
[2022-06-18 06:16] LABS: Alanine Aminotransferase 34 U/L (6-50); Albumin Level 2.6 g/dL (3.5-5.1); Alkaline Phosphatase 67 U/L (38-126); Anion Gap 6 mmol/L (8-16); Aspartate Amino Transferase 36 U/L (17-59); Bilirubin,Total 0.5 mg/dL (0.2-1.3); Blood Urea Nitrogen 11 mg/dL (9-20); Calcium 7.2 mg/dL (8.4-10.2); Carbon Dioxide 23 mmol/L (22-30); Chloride 101 mmol/L (98-107); Estimated CRCL calculation 64 ml/min; Estimated Glomerular Filt Rate > 60; Glucose 99 mg/dL (65-110); Magnesium 1.6 mg/dL (1.6-2.3); Potassium 3.3 mmol/L (3.4-5.0); Sodium 130 mmol/L (137-145)
--- NOTE | 2022-06-18 08:00 | ECG_ITS ---
Measurements Intervals [place] Rate: 123 P: [place]: 0 QRS: -22 QRSD: 110 T: 70 QT: 321 QTc: 459 Interpretive Statements ATRIAL FLUTTER/TACHYCARDIA WITH RAPID VENTRICULAR RESPONSE BORDERLINE LEFT AXIS DEVIATION [QRS AXIS < -20] NONSPECIFIC T-WAVE ABNORMALITY ABNORMAL RHYTHM ECG COMPARED TO ECG 06/17/2022 14:47:01 NO SIGNIFICANT CHANGES Electronically Signed On 06-18-2022 8:57:03 CDT by Joanne Melton M.D.
[2022-06-18] MEDS: cefTRIAXone 2 GM in SODIUM CHLORIDE 0.9% IV 100 ML 200 ML IVPB (09:04)
[2022-06-18] MEDS: POTASSIUM CHLORIDE 20 MEQ PACKET (FOR LIQUID) 40 MEQ PO (09:04)
[2022-06-18] MEDS: FIDAXOMICIN 200 MG TABLET PO ×2 (09:05→20:13)
[2022-06-18] MEDS: APIXABAN 5 MG TABLET PO ×2 (09:05→20:13)
[2022-06-18] MEDS: MAGNESIUM OXIDE 200 MG TABLET PO (09:05)
[2022-06-18] MEDS: MIDODRINE HCL 2.5 MG TABLET PO ×3 (09:05→16:46)
[2022-06-18] MEDS: SOLIFENACIN 5 MG TABLET 10 MG PO (09:05)
[2022-06-18] MEDS: guaiFENesin 600 MG/DEXTROMETHORPHAN 30 MG SR TAB 12 HR 1 TAB PO ×2 (09:05→20:13)
[2022-06-18] MEDS: CALCIUM CARBONATE (OSCAL) 500 MG TABLET PO (09:06)
--- NOTE | 2022-06-18 11:20 | PM.IMPN ---
Progress Note: A&P Assessment and Plan (1) Septic shock: Code(s): A41.9 - Sepsis, unspecified organism; R65.21 - Severe sepsis with septic shock Status: Acute Assessment and Plan: sepsis is improved. Continue IV Rocephin For UTI. Positive blood cultures for MRSA. IV vancomycin. Echo negative. No other focus of infection. No other symptoms. (2) ZORAN (acute kidney injury): Code(s): N17.9 - Acute kidney failure, unspecified Status: Acute Assessment and Plan: kidney function improved (3) Acute UTI: Code(s): N39.0 - Urinary tract infection, site not specified Status: Acute Assessment and Plan: culture negative. DC Rocephin on 06/19. (4) Diarrhea: Code(s): R19.7 - Diarrhea, unspecified Status: Acute Assessment and Plan: Positive C diff. oral Dificid (5) CHF (congestive heart failure): Code(s): I50.9 - Heart failure, unspecified Status: Acute Assessment and Plan: appears to be compensated currently. (6) Thrombocytopenia: Code(s): D69.6 - Thrombocytopenia, unspecified Status: Acute Assessment and Plan: Patient has come chronic thrombocytopenia appears to be worse. This could be multifactorial secondary to sepsis or infection Monitor platelet count. Transfuse if needed platelet count is improving (7) Hypothyroidism, unspecified: Code(s): E03.9 - Hypothyroidism, unspecified Status: Acute Assessment and Plan: Continue levothyroxine Check TSH (8) BPH without obstruction/lower urinary tract symptoms: Code(s): N40.0 - Benign prostatic hyperplasia without lower urinary tract symptoms Status: Acute Assessment and Plan: Greenwood in place (9) Bacteremia: Code(s): R78.81 - Bacteremia Status: Acute Assessment and Plan: Positive for MRSA. Will re-culture tomorrow after vancomycin has been given for 48hours. Patient is improving clinically. echo ordered will start on vanc (10) Elevated d-dimer: Code(s): R79.89 - Other specified abnormal findings of blood chemistry Status: Acute Assessment and Plan: likely related to sepsis. Bilateral lower extremity venous duplex negative (11) Atrial fibrillation with RVR: Code(s): I48.91 - Unspecified atrial fibrillation Status: Acute Assessment and Plan: Appreciate Cardiology input. Heart rate is still elevated. Continue anticoagulation. Subjective Date/time seen: 06/18/22 11:20 No new complaints Exam Narrative: General: Pt is alert awake and in NAD Lungs/Chest: Trachea central Clear BS B/L, bibasilar crackles Cardiac: RRR. Normal S1 S2. No murmurs Circulation: Pedal pulses are intact and symmetrical. Abdomen: Normal bowel sounds.. Soft. NT. ND. Extremities: No clubbing, cyanosis or edema. Warm : Greenwood in place Neurologic: Follows commands. Moves all 4 extremities PERRL AO x3 Skin: No Rash Objective Data Vital Signs Vital Signs: Vital Signs - 24 hr 06/17/22 12:00 06/17/22 12:00 06/17/22 16:00 Temperature 97.8 F Pulse Rate 125 H 125 H 123 H Respiratory Rate 20 Blood Pressure 92/56 L Pulse Oximetry 95 Oxygen Delivery 06/17/22 16:00 06/17/22 22:00 06/17/22 22:27 Temperature 98.7 F 98 F Pulse Rate 120 H 133 H 122 H Respiratory Rate 16 16 Blood Pressure 106/75 100/69 Pulse Oximetry 97 95 Oxygen Delivery 06/18/22 06:00 06/18/22 08:00 Temperature 97.8 F Pulse Rate 126 H Respiratory Rate 18 Blood Pressure 108/92 H Pulse Oximetry 94 Oxygen Delivery Room Air Intake/Output Intake/Output: Intake & Output 06/15/22 06/16/22 06/17/22 06/18/22 23:59 23:59 23:59 23:59 Intake Total 2440 2300 2160 1820 Output Total 1625 1500 2925 875 Balance 815 800 -765 945 Meds/Results Medications: Active Medications Generic Name Dose Route Start Last Admin Trade Name Freq PRN Reas
[2022-06-18] MEDS: SOTALOL HCL 80 MG TABLET PO ×2 (11:29→20:12)
[2022-06-18] MEDS: PANTOPRAZOLE SOD SESQUIHYDRATE 20 MG TAB PO (11:30)
[2022-06-18 12:26] LABS: Vancomycin Trough 6.6 ug/mL (10.0-20.0)
--- NOTE | 2022-06-18 13:37 | PM.PNCARD ---
Progress Note: A&P Assessment and Plan (1) Atrial fibrillation with RVR: Code(s): I48.91 - Unspecified atrial fibrillation Status: Acute Assessment and Plan: New onset AFib/flutter RVR due to sepsis and physiologic stress. Rate is still fast, taking sotalol now instead of metoprolol. Resume some po metoprolol and also prn metoprolol IVP Medication monitoring: Sotalol needs to be followed for is proarrhythmic effect. no V-tach on telemetry.The QTC is acceptable today. Anticoagulated with Eliquis. Will increase the dose to 5 mg daily as the patient's renal function and weight are good. (2) Bacteremia: Code(s): R78.81 - Bacteremia Status: Acute Assessment and Plan: Has methicillin-resistant Staph bacteremia And sepsis. On antibiotics, appears to be improving. (3) S/P aortic valve replacement with bioprosthetic valve: Code(s): Z95.3 - Presence of xenogenic heart valve Status: Acute Assessment and Plan: With a bacteremia there was concern for endocarditis. Echo not suggestive of endocarditis Repeat blood cultures drawn 06/17/22 Poss YOLIS prior to discharge (and cardioversion?) (4) Acute hypotension: Code(s): I95.9 - Hypotension, unspecified Status: Acute Assessment and Plan: Patient has been hypotensive the last 24 hours with blood pressures in the 90s, a little lightheaded. 1 liter IV fluids 06/17/2022 added midodrine 2.5 mg t.i.d. for the short term BP better today (5) Thrombocytopenia: Code(s): D69.6 - Thrombocytopenia, unspecified Status: Acute Assessment and Plan: Platelet count declined to < 100 K If he continues to decline we will need to stop the Eliquis. daily CBC (6) Chest wall pain: Code(s): R07.89 - Other chest pain Status: Acute Assessment and Plan: Chest discomfort, atypical. EKG without acute changes very minimal elevation of troponin Probably musculoskeletal. (7) Chest pain: Code(s): R07.9 - Chest pain, unspecified Status: Acute Assessment and Plan: appears musculoskeletal. Subjective Date/time seen: Patient with a history of aortic valve replacement, admitted with sepsis.? Developed AFib RVR. 06/17/22: Patient feels weak, little lightheaded when out of bed.? However was up in chair and walking.? Appetite is a little better.? Has some left pectoral chest discomfort which was described as an ache, nonpleuritic, nonpositional? and nontender but, to the patient, felt musculoskeletal. ? faded away.? EKG on my personal review showed atrial flutter with an elevated heart rate, and nonspecific ST changes, no change compared to yesterday's tracing. ? QTC was 4 and 75 milliseconds, acceptable.Telemetry shows AFib rate 100- 120 for the most part ; no palpitations.? Blood pressure running in the 90s. given 1 L of IV fluids and started on low-dose midodrin Date of service 06/18/22 13:37 : Not as perky as yesterday but was up in a chair for while. Transiently lightheaded. Eating okay. Still with intermittent left pectoral pain with some tenderness. Some shortness of breath. Blood pressure better, 100-110 systolic. Afebrile. Heart rate still ranges 120-130. Remains on room air. EKG today: 80 flutter rate [address] changes. QTC 459 milliseconds, acceptable. Review of Systems Review of Systems: Not as perky as yesterday but was up in a chair for while. Transiently lightheaded. Eating okay , no abdominal pain. Still with intermittent left pectoral pain with some tenderness. Some shortness of breath with activity, none at rest.. Neurologic: Denies confusion Psychiatric: Psychiatric: Denies confusion Exam Const: General: cooperative, healthy appearing, comfortable and no acute distress; No confusion Orientation/consciousness: oriented to person, patient oriented x3 and No confusion Other:
[2022-06-18 15:52] LABS: Heparin Induced Platelet Antib Negative (Negative)
[2022-06-18] MEDS: TAMSULOSIN HCL 0.4 MG CAPSULE PO (20:12)
[2022-06-18] MEDS: ATORVASTATIN 10 MG TABLET PO (20:13)
[2022-06-19] VITALS (11 sets, daily range): BP systolic 107–123; BP diastolic 68–82; PULSE 61–120; RESP 20; TEMP 36.2–37.2; O2SAT 95–97
[2022-06-19] MEDS: SODIUM CHLORIDE 0.9% IV 1,000 ML 100 ML IV CONT ×3 (00:09→22:19)
[2022-06-19] MEDS: CENTRAL LINE FLUSH 10 ML IV PUSH ×3 (05:22→20:16)
[2022-06-19] MEDS: LEVOTHYROXINE SODIUM 50 MCG TABLET PO (05:22)
[2022-06-19 05:30] LABS: Hemoglobin 8.5 g/dL (14.0-18.0); Immature Platelet Fraction Pct 9.7 % (0.9-11.2); Mean Corpuscular Hemoglobin 37.8 pg (26-34); Mean Corpuscular Volume 111.1 fl (80-100); Mean Platelet Volume 10.8 fl (7.4-10.4); Platelet Count Result 104 k/mm3 (150-375); Red Blood Count 2.25 M/mm3 (4.6-6.20); Red Cell Distribution Width 13.4 % (11.5-14.5); White Blood Count 4.4 K/mm3 (4.5-10.0)
[2022-06-19 05:50] LABS: Alanine Aminotransferase 28 U/L (6-50); Albumin Level 2.4 g/dL (3.5-5.1); Alkaline Phosphatase 63 U/L (38-126); Anion Gap 7 mmol/L (8-16); Aspartate Amino Transferase 29 U/L (17-59); Bilirubin,Total 0.4 mg/dL (0.2-1.3); Blood Urea Nitrogen 8 mg/dL (9-20); Calcium 7.1 mg/dL (8.4-10.2); Carbon Dioxide 23 mmol/L (22-30); Chloride 100 mmol/L (98-107); Estimated CRCL calculation 73 ml/min; Estimated Glomerular Filt Rate > 60; Glucose 97 mg/dL (65-110); Magnesium 1.5 mg/dL (1.6-2.3); Potassium 3.3 mmol/L (3.4-5.0); Sodium 130 mmol/L (137-145)
[2022-06-19] MEDS: guaiFENesin 600 MG/DEXTROMETHORPHAN 30 MG SR TAB 12 HR 1 TAB PO ×2 (08:59→20:16)
[2022-06-19] MEDS: cefTRIAXone 2 GM in SODIUM CHLORIDE 0.9% IV 100 ML 200 ML IVPB (08:59)
[2022-06-19] MEDS: SOTALOL HCL 80 MG TABLET PO ×2 (08:59→20:16)
[2022-06-19] MEDS: SOLIFENACIN 5 MG TABLET 10 MG PO (08:59)
[2022-06-19] MEDS: CALCIUM CARBONATE (OSCAL) 500 MG TABLET PO (09:00)
[2022-06-19] MEDS: MAGNESIUM OXIDE 200 MG TABLET PO (09:00)
[2022-06-19] MEDS: MIDODRINE HCL 2.5 MG TABLET PO ×3 (09:00→17:47)
[2022-06-19] MEDS: FIDAXOMICIN 200 MG TABLET PO ×2 (09:00→20:16)
[2022-06-19] MEDS: PANTOPRAZOLE SOD SESQUIHYDRATE 20 MG TAB PO (09:00)
[2022-06-19] MEDS: APIXABAN 5 MG TABLET PO ×2 (09:01→20:16)
--- NOTE | 2022-06-19 09:03 | ECG_ITS ---
Measurements Intervals [place] Rate: 97 P: MA: 0 QRS: -8 QRSD: 115 T: 66 QT: 391 QTc: 497 Interpretive Statements ATRIAL FLUTTER/TACHYCARDIA BASELINE ARTIFACT MODERATE INTRAVENTRICULAR CONDUCTION DELAY [110+ ms QRS DURATION] ABNORMAL ECG COMPARED TO ECG 06/18/2022 08:15:10 NO SIGNIFICANT CHANGES Electronically Signed On 06-19-2022 16:16:32 CDT by Nadir Macdonald M.D.
--- NOTE | 2022-06-19 09:15 | P.PNCA_ITS ---
Progress Note: A&P Assessment and Plan (1) Atrial fibrillation with RVR: Code(s): I48.91 - Unspecified atrial fibrillation Status: Acute Assessment and Plan: New onset AFib/flutter RVR due to sepsis and physiologic stress. * Rate is still fast on sotalol now with p.o. metoprolol * prn metoprolol IVP * Medication monitoring: Sotalol needs to be followed for is proarrhythmic effect. No V-tach on telemetry. The QTC is acceptable today. * Anticoagulated with Eliquis * Plan for YOLIS/CV tomorrow. Discussed with Dr. Muñiz. * K+ 3.3 today. Will replete. BMP in a.m. (2) Bacteremia: Code(s): R78.81 - Bacteremia Status: Acute Assessment and Plan: Has methicillin-resistant Staph bacteremia And sepsis. * On antibiotics, appears to be improving. (3) S/P aortic valve replacement with bioprosthetic valve: Code(s): Z95.3 - Presence of xenogenic heart valve Status: Acute Assessment and Plan: With a bacteremia there was concern for endocarditis. * Echo not suggestive of endocarditis * Repeat blood cultures drawn 06/17/22 * YOLIS tomorrow (4) Acute hypotension: Code(s): I95.9 - Hypotension, unspecified Status: Acute Assessment and Plan: Patient has been hypotensive the last 24 hours with blood pressures in the 90s, a little lightheaded. * 1 liter IV fluids 06/17/2022 * added midodrine 2.5 mg t.i.d. for the short term * BP improved, perhaps some orthostasis though * Check orthostatic BP (5) Thrombocytopenia: Code(s): D69.6 - Thrombocytopenia, unspecified Status: Acute Assessment and Plan: Platelet count declined to < 100 K * If he continues to decline we will need to stop the Eliquis. * Improved today, 104k (6) Chest wall pain: Code(s): R07.89 - Other chest pain Status: Acute Assessment and Plan: Chest discomfort, atypical. * EKG without acute changes * very minimal elevation of troponin * Probably musculoskeletal. (7) Chest pain: Code(s): R07.9 - Chest pain, unspecified Status: Acute Assessment and Plan: appears musculoskeletal. Subjective Date/time seen: 06/19/22 09:15 Cardiology follow up for atrial fibrillation Had some dizziness when he was ambulating to the bathroom this morning and still feels woozy. No other complaints. No chest pain, palpitations, shortness of breath. Review of Systems Constitutional: Constitutional: Reports no additional constitutional complaints Eyes: Eyes: Reports no additional eye complaints ENT: Reports system reviewed and no additional complaints, except as documented Cardiovascular: Cardiovascular: Reports no additional cardiovascular complaints Respiratory: Respiratory: Reports no additional respiratory complaints Gastrointestinal: Gastrointestinal: Reports no additional gastrointestinal complaints Musculoskeletal: Musculoskeletal: Reports no additional musculoskeletal complaints Integumentary/Breasts: Skin/Breast: Reports system reviewed and no additional complaints, except as docu Neurologic: Reports system reviewed and no additional complaints, except as documented and Denies confusion Psychiatric: Psychiatric: Denies confusion Endocrine: Endocrine: Reports no additional endocrine complaints Hematologic/Lymphatic: Hematologic/Lymp
--- NOTE | 2022-06-19 09:15 | PM.PNCARD ---
Progress Note: A&P Assessment and Plan (1) Atrial fibrillation with RVR: Code(s): I48.91 - Unspecified atrial fibrillation Status: Acute Assessment and Plan: New onset AFib/flutter RVR due to sepsis and physiologic stress. Rate is still fast on sotalol now with p.o. metoprolol prn metoprolol IVP Medication monitoring: Sotalol needs to be followed for is proarrhythmic effect. No V-tach on telemetry. The QTC is acceptable today. Anticoagulated with Eliquis Plan for YOLIS/CV tomorrow. Discussed with Dr. Muñiz. K+ 3.3 today. Will replete. BMP in a.m. (2) Bacteremia: Code(s): R78.81 - Bacteremia Status: Acute Assessment and Plan: Has methicillin-resistant Staph bacteremia And sepsis. On antibiotics, appears to be improving. (3) S/P aortic valve replacement with bioprosthetic valve: Code(s): Z95.3 - Presence of xenogenic heart valve Status: Acute Assessment and Plan: With a bacteremia there was concern for endocarditis. Echo not suggestive of endocarditis Repeat blood cultures drawn 06/17/22 YOLIS tomorrow (4) Acute hypotension: Code(s): I95.9 - Hypotension, unspecified Status: Acute Assessment and Plan: Patient has been hypotensive the last 24 hours with blood pressures in the 90s, a little lightheaded. 1 liter IV fluids 06/17/2022 added midodrine 2.5 mg t.i.d. for the short term BP improved, perhaps some orthostasis though Check orthostatic BP (5) Thrombocytopenia: Code(s): D69.6 - Thrombocytopenia, unspecified Status: Acute Assessment and Plan: Platelet count declined to < 100 K If he continues to decline we will need to stop the Eliquis. Improved today, 104k (6) Chest wall pain: Code(s): R07.89 - Other chest pain Status: Acute Assessment and Plan: Chest discomfort, atypical. EKG without acute changes very minimal elevation of troponin Probably musculoskeletal. (7) Chest pain: Code(s): R07.9 - Chest pain, unspecified Status: Acute Assessment and Plan: appears musculoskeletal. Subjective Date/time seen: 06/19/22 09:15 Cardiology follow up for atrial fibrillation Had some dizziness when he was ambulating to the bathroom this morning and still feels woozy. No other complaints. No chest pain, palpitations, shortness of breath. Review of Systems Constitutional: Constitutional: Reports no additional constitutional complaints Eyes: Eyes: Reports no additional eye complaints ENT: Reports system reviewed and no additional complaints, except as documented Cardiovascular: Cardiovascular: Reports no additional cardiovascular complaints Respiratory: Respiratory: Reports no additional respiratory complaints Gastrointestinal: Gastrointestinal: Reports no additional gastrointestinal complaints Musculoskeletal: Musculoskeletal: Reports no additional musculoskeletal complaints Integumentary/Breasts: Skin/Breast: Reports system reviewed and no additional complaints, except as docu Neurologic: Reports system reviewed and no additional complaints, except as documented and Denies confusion Psychiatric: Psychiatric: Denies confusion Endocrine: Endocrine: Reports no additional endocrine complaints Hematologic/Lymphatic: Hematologic/Lymphatic: Reports no additional hematologic/lymphatic complaints Allergic/Immunologic: Allergic/Immunologic: Reports no additional allergic/immunologic complaints Exam Const: General: cooperative, healthy appearing, comfortable and no acute distress; No confusion Orientation/consciousness: oriented to person, patient oriented x3 and No confusion Other: at bedside. Appears tired but in no distress. HENMT: Mouth: Yes moist mucous membranes Eyes: Sclera: sclerae normal Pupils: Equal, round and reactive pupils present EOM: EOMs intact bilaterally Neck: Neck: supple and no JVD Resp:
--- NOTE | 2022-06-19 11:53 | PM.IMPN ---
Progress Note: A&P Assessment and Plan (1) Septic shock: Code(s): A41.9 - Sepsis, unspecified organism; R65.21 - Severe sepsis with septic shock Status: Acute Assessment and Plan: sepsis is improved. Continue IV Rocephin For UTI. Positive blood cultures for MRSA. IV vancomycin. Echo negative. No other focus of infection. No other symptoms. (2) ZORAN (acute kidney injury): Code(s): N17.9 - Acute kidney failure, unspecified Status: Acute Assessment and Plan: kidney function improved (3) Acute UTI: Code(s): N39.0 - Urinary tract infection, site not specified Status: Acute Assessment and Plan: culture negative. DC Rocephin on 06/19. (4) Diarrhea: Code(s): R19.7 - Diarrhea, unspecified Status: Acute Assessment and Plan: Positive C diff. oral Dificid (5) CHF (congestive heart failure): Code(s): I50.9 - Heart failure, unspecified Status: Acute Assessment and Plan: appears to be compensated currently. (6) Thrombocytopenia: Code(s): D69.6 - Thrombocytopenia, unspecified Status: Acute Assessment and Plan: Patient has come chronic thrombocytopenia appears to be worse. This could be multifactorial secondary to sepsis or infection Monitor platelet count. Transfuse if needed platelet count is improving (7) Hypothyroidism, unspecified: Code(s): E03.9 - Hypothyroidism, unspecified Status: Acute Assessment and Plan: Continue levothyroxine Check TSH (8) BPH without obstruction/lower urinary tract symptoms: Code(s): N40.0 - Benign prostatic hyperplasia without lower urinary tract symptoms Status: Acute Assessment and Plan: Greenwood in place (9) Bacteremia: Code(s): R78.81 - Bacteremia Status: Acute Assessment and Plan: Positive for MRSA. Will re-culture tomorrow after vancomycin has been given for 48hours. Patient is improving clinically. echo ordered will start on vanc (10) Elevated d-dimer: Code(s): R79.89 - Other specified abnormal findings of blood chemistry Status: Acute Assessment and Plan: likely related to sepsis. Bilateral lower extremity venous duplex negative (11) Atrial fibrillation with RVR: Code(s): I48.91 - Unspecified atrial fibrillation Status: Acute Assessment and Plan: Appreciate Cardiology input. Heart rate is still elevated. Continue anticoagulation. Subjective Date/time seen: 06/19/22 11:53 Heart rate still elevated. stools are improving Exam Narrative: General: Pt is alert awake and in NAD Lungs/Chest: Trachea central Clear BS B/L, bibasilar crackles Cardiac: RRR. Normal S1 S2. No murmurs Circulation: Pedal pulses are intact and symmetrical. Abdomen: Normal bowel sounds.. Soft. NT. ND. Extremities: No clubbing, cyanosis or edema. Warm : Greenwood in place Neurologic: Follows commands. Moves all 4 extremities PERRL AO x3 Skin: No Rash Objective Data Vital Signs Vital Signs: Vital Signs - 24 hr 06/18/22 12:00 06/18/22 15:37 06/18/22 16:00 Temperature 98.9 F Pulse Rate 120 H 109 H 125 H Respiratory Rate 16 Blood Pressure 106/74 Pulse Oximetry 96 06/18/22 20:12 06/18/22 20:00 06/18/22 21:57 Temperature 97.5 F L Pulse Rate 112 H 112 H 121 H Respiratory Rate 20 Blood Pressure 94/58 L Pulse Oximetry 95 06/19/22 00:00 06/19/22 04:00 06/19/22 05:47 Temperature 98.1 F Pulse Rate 92 87 111 H Respiratory Rate 20 Blood Pressure 112/82 Pulse Oximetry 96 06/19/22 08:59 06/19/22 08:00 Temperature Pulse Rate 120 H 68 Respiratory Rate Blood Pressure Pulse Oximetry Intake/Output Intake/Output: Intake & Output 06/16/22 06/17/22 06/18/22 06/19/22 23:59 23:59 23:59 23:59 Intake Total 2300 2160 4770 465 Output Total 5025 2925 1425 650 Balance 800 -465 3499 -663 Meds/Results Me
[2022-06-19] MEDS: POTASSIUM CHLORIDE 20 MEQ PACKET (FOR LIQUID) 40 MEQ PO (11:59)
--- NOTE | 2022-06-19 16:07 | PCPTNOTE ---
Patient refused PT following OT treatment this afternoon. PT will continue to follow per plan of care.
[2022-06-19] MEDS: ATORVASTATIN 10 MG TABLET PO (20:16)
[2022-06-19] MEDS: TAMSULOSIN HCL 0.4 MG CAPSULE PO (20:16)
[2022-06-20] VITALS (24 sets, daily range): BP systolic 84–124; BP diastolic 45–88; PULSE 72–128; RESP 12–20; TEMP 35.5–36.8; O2SAT 92–95; BMI 32.9
[2022-06-20] MEDS: LEVOTHYROXINE SODIUM 50 MCG TABLET PO (05:29)
[2022-06-20] MEDS: CENTRAL LINE FLUSH 10 ML IV PUSH ×3 (05:35→23:01)
[2022-06-20 05:53] LABS: Anion Gap 7 mmol/L (8-16); Blood Urea Nitrogen 6 mg/dL (9-20); Calcium 6.7 mg/dL (8.4-10.2); Carbon Dioxide 22 mmol/L (22-30); Chloride 98 mmol/L (98-107); Estimated CRCL calculation 67 ml/min; Estimated Glomerular Filt Rate > 60; Glucose 93 mg/dL (65-110); Magnesium 1.4 mg/dL (1.6-2.3); Potassium 3.5 mmol/L (3.4-5.0); Sodium 127 mmol/L (137-145)
[2022-06-20] MEDS: FIDAXOMICIN 200 MG TABLET PO ×2 (08:34→20:14)
[2022-06-20] MEDS: MIDODRINE HCL 2.5 MG TABLET PO ×2 (08:34→17:56)
[2022-06-20] MEDS: MAGNESIUM OXIDE 200 MG TABLET PO (08:35)
[2022-06-20] MEDS: SOTALOL HCL 80 MG TABLET PO ×2 (08:35→20:16)
[2022-06-20] MEDS: APIXABAN 5 MG TABLET PO ×2 (08:36→20:16)
[2022-06-20] MEDS: MAGNESIUM SULF 2 GM/WATER 50ML 2 GM/50 ML BAG IVPB (09:20)
--- NOTE | 2022-06-20 09:38 | WPDMODSED ---
Moderate Sedation Note-Pt Data Patient Data Diagnosis: Atrial fibrillation with RVR Present Complaint: Atrial fibrillation with RVR Procedure to be performed/Plan: YOLIS-guided DCCV Allergies Allergy/AdvReac Type Severity Reaction Status Date / Time sulfamethizole Allergy Unknown Confusion Verified 06/13/22 15:39 sulfamethoxazole Allergy Unknown Confusion Verified 06/13/22 15:39 trimethoprim Allergy Unknown Confusion Verified 06/13/22 15:39 Home Medications Medication Instructions Recorded Confirmed Type albuterol sulfate 90 mcg/actuation 1 inh inhalation QID PRN Shortness 02/20/20 06/13/22 History aerosol inhaler (ProAir HFA) Of Breath metoprolol tartrate 25 mg tablet 25 mg PO BID 05/06/20 06/13/22 History solifenacin 10 mg tablet (Vesicare) 10 mg PO DAILY 07/13/21 06/13/22 History atorvastatin 10 mg tablet (Lipitor) 10 mg PO HS #90 tabs 10/21/21 06/13/22 Rx levothyroxine 50 mcg tablet 50 mcg PO DAILY #90 tabs 10/21/21 06/13/22 Rx (Synthroid) tamsulosin 0.4 mg capsule (Flomax) 0.4 mg PO HS #90 caps 10/21/21 06/13/22 Rx pantoprazole 20 mg tablet,delayed 20 mg PO QAM #90 tabs 04/24/22 06/13/22 Rx release (Protonix) budesonide 3 mg 6 mg PO DAILY PRN Allergy Symptoms 06/13/22 06/13/22 History capsule,delayed,extended release calcium carb-Ca gluc 500 mg 1 tablet PO DAILY 06/13/22 06/13/22 History calcium-magnesium ox-Mg gluc 250 mg tablet (Calcium Magnesium) cholecalciferol (vitamin D3) 350 350 mcg PO ONCE 06/13/22 06/13/22 History mcg (14,000 unit) capsule clobetasol 0.05 % scalp solution 1 applic topical DAILY PRN Skin 06/13/22 06/13/22 History Irritation phenazopyridine 100 mg tablet 100 mg PO TID PRN Bladder Spasms 06/13/22 06/13/22 History (Pyridium) zolpidem 10 mg tablet (Ambien) 10 mg PO QHS PRN insomnia 06/13/22 06/13/22 History aspirin 81 mg capsule 81 mg PO DAILY 06/16/22 06/16/22 History Current Medications: Active Medications Acetaminophen (Acetaminophen 325 Mg Tablet) 650 mg PO Q4H PRN PRN Reason: Mild Pain (1-3) or Fever Last Admin: 06/17/22 12:59 Dose: 650 mg Albuterol (Albuterol Sulfate (*Sp) Aerosol 1 Puff) 1 puff INHALATION QID PRN PRN Reason: Shortness Of Breath Apixaban (Apixaban 5 Mg Tablet) 5 mg PO Q12HR [facility] Last Admin: 06/20/22 08:36 Dose: 5 mg Atorvastatin Calcium (Atorvastatin 10 Mg Tablet) 10 mg PO HS [facility] Last Admin: 06/19/22 20:16 Dose: 10 mg Budesonide (Budesonide 3 Mg Cap.Sr.24h) 6 mg PO DAILY PRN PRN Reason: Allergy Symptoms Calcium Carbonate (Calcium Carbonate (Oscal) 500 Mg Tablet) 500 mg PO QAM [facility] Last Admin: 06/19/22 09:00 Dose: 500 mg Fidaxomicin (Fidaxomicin 200 Mg Tablet) 200 mg PO Q12HR [facility] Stop: 06/26/22 09:00 Last Admin: 06/20/22 08:34 Dose: 200 mg Guaifenesin/Dextromethorphan (Guaifenesin 600 Mg/Dextromethorphan 30 Mg Sr Tab 12 Hr) 1 tab PO Q12HR [facility] Last Admin: 06/19/22 20:16 Dose: 1 tab Sodium Chloride (Normal Saline Iv) 1,000 mls @ 100 mls/hr IV CONT .Q10H [facility] Last Admin: 06/20/22 05:36 Dose: Not Given Vancomycin HCl (Vancomycin 1,750 Mg/D5w 500 Ml) 1,750 mg in 500 mls @ 250 mls/hr IVPB Q12H [facility] Last Admin: 06/20/22 05:29 Dose: 250 mls/hr Magnesium Sulfate (Magnesium Sulf 2 Gm/Water 50ml) 2 gm in 50 mls @ 50 mls/hr IVPB ONCE ONE Stop: 06/20/22 09:44 Last Admin: 06/20/22 09:20 Dose: 50 mls/hr Levothyroxine Sodium (Levothyroxine Sodium 50 Mcg Tablet) 50 mcg PO DAILY@0630 [facility] Last Admin: 06/20/22 05:29 Dose: 50 mcg Magnesium Oxide (Magnesium Oxide 200 Mg Tablet) 200 mg PO DAILY [facility] Last Admin: 06/20/22 08:35 Dose: 200 mg Midodrine (Midodrine Hcl 2.5 Mg Tablet) 2.5 mg PO TID [facility] Last Admin: 06/20/22 08:34 Dose: 2.5 mg Pantoprazole Sodium (Pantoprazole Sod Sesquihydrate 20 Mg Tab) 20 mg PO QAM [facility] Last Admin: 06/19/22 09:00 Dose: 20 mg Phenazopyridine HCl (Phenazopyridine Hcl 100 Mg Tablet) 100 mg PO TID PRN PRN Reason: Bladder Spasms Last Admin: 06/16/22 09:37 Dose: 100 mg
--- NOTE | 2022-06-20 10:00 | ECG_ITS ---
Measurements Intervals [place] Rate: 77 P: -24 DE: 318 QRS: -16 QRSD: 111 T: 22 QT: 454 QTc: 514 Interpretive Statements SINUS RHYTHM WITH FIRST DEGREE AV BLOCK POSSIBLE LEFT ATRIAL ENLARGEMENT [-0.1mV P WAVE IN V1/V2] MODERATE INTRAVENTRICULAR CONDUCTION DELAY [105+ ms QRS DURATION, 80+ ms Q/S IN V1/V2, NO Q AND 60+ ms R IN I/aVL/V5/V6] PROLONGED QT INTERVAL WARNING: DATA QUALITY MAY AFFECT INTERPRETATION COMPARED TO ECG 06/20/2022 10:02:26 SINUS RHYTHM NOW PRESENT FIRST DEGREE AV BLOCK NOW PRESENT INTRAVENTRICULAR CONDUCTION DELAY NOW PRESENT PROLONGED QT INTERVAL NOW PRESENT Electronically Signed On 06-20-2022 16:20:49 CDT by Tania Muñiz M.D.
--- NOTE | 2022-06-20 10:50 | PCPTNOTE ---
The patient treatment was not able to be completed at this time due to patient having bedside procedure. Will plan to continue treatment per plan of care.
--- NOTE | 2022-06-20 11:00 | SUR.PHASEII ---
post op: @1100 patient is alert and talking and asking questions to doc about his procedure. patient requesting ice chips and able to tolerate well. patient's bp is 88/55 and md and floor nurse are aware. patient is a/ox3, on room air. patient disconnected from ccl monitor and resumed on floor telemetry. report given to floor nurse.
--- NOTE | 2022-06-20 11:00 | ECG_ITS ---
Measurements Intervals [place] Rate: 125 P: MS: 0 QRS: 84 QRSD: 107 T: 7 QT: 328 QTc: 474 Interpretive Statements ATRIAL FLUTTER/TACHYCARDIA WITH RAPID VENTRICULAR RESPONSE MODERATE ST DEPRESSION [0.05+ mV ST DEPRESSION] WARNING: DATA QUALITY MAY AFFECT INTERPRETATION COMPARED TO ECG 06/19/2022 11:25:00 NO SIGNIFICANT CHANGES Electronically Signed On 06-20-2022 16:19:53 CDT by Tania Muñiz M.D.
--- NOTE | 2022-06-20 11:13 | PM.IMPN ---
Progress Note: A&P Assessment and Plan (1) Septic shock: Code(s): A41.9 - Sepsis, unspecified organism; R65.21 - Severe sepsis with septic shock Status: Acute Assessment and Plan: sepsis is improved. UTI has been treated with Rocephin. Positive blood cultures for MRSA. IV vancomycin. Echo negative. No other focus of infection. No other symptoms. Plan for YOLIS cardioversion for his AFib per Cardiology. Repeat cultures on 06/17 still negative. Will need PICC placement for IV antibiotics on discharge. (2) ZORAN (acute kidney injury): Code(s): N17.9 - Acute kidney failure, unspecified Status: Acute Assessment and Plan: kidney function improved (3) Acute UTI: Code(s): N39.0 - Urinary tract infection, site not specified Status: Acute Assessment and Plan: culture negative. DC Rocephin on 06/19. (4) Diarrhea: Code(s): R19.7 - Diarrhea, unspecified Status: Acute Assessment and Plan: Positive C diff. oral Dificid Still having a few loose stools every day. Although improved. (5) CHF (congestive heart failure): Code(s): I50.9 - Heart failure, unspecified Status: Acute Assessment and Plan: appears to be compensated currently. (6) Thrombocytopenia: Code(s): D69.6 - Thrombocytopenia, unspecified Status: Acute Assessment and Plan: Patient has come chronic thrombocytopenia appears to be worse. This could be multifactorial secondary to sepsis or infection Monitor platelet count. Transfuse if needed platelet count is improving (7) Hypothyroidism, unspecified: Code(s): E03.9 - Hypothyroidism, unspecified Status: Acute Assessment and Plan: Continue levothyroxine Check TSH (8) BPH without obstruction/lower urinary tract symptoms: Code(s): N40.0 - Benign prostatic hyperplasia without lower urinary tract symptoms Status: Acute Assessment and Plan: Greenwood in place (9) Bacteremia: Code(s): R78.81 - Bacteremia Status: Acute Assessment and Plan: Positive for MRSA. Will re-culture tomorrow after vancomycin has been given for 48hours. Patient is improving clinically. echo Reviewed yolis planned today for cardioversion. This will also get better visualization of the valves. will start on vanc PICC line ordered. (10) Elevated d-dimer: Code(s): R79.89 - Other specified abnormal findings of blood chemistry Status: Acute Assessment and Plan: likely related to sepsis. Bilateral lower extremity venous duplex negative (11) Atrial fibrillation with RVR: Code(s): I48.91 - Unspecified atrial fibrillation Status: Acute Assessment and Plan: Appreciate Cardiology input. Heart rate is still elevated. Continue anticoagulation. Subjective Date/time seen: 06/20/22 11:13 Patient denies any new complaints Today. Heart rate is still little bit elevated. According to Cardiology are still planning cardioversion. Exam Narrative: General: Pt is alert awake and in NAD Lungs/Chest: Trachea central Clear BS B/L, bibasilar crackles Cardiac: RRR. Normal S1 S2. No murmurs Circulation: Pedal pulses are intact and symmetrical. Abdomen: Normal bowel sounds.. Soft. NT. ND. Extremities: No clubbing, cyanosis or edema. Warm : Greenwood in place Neurologic: Follows commands. Moves all 4 extremities PERRL AO x3 Skin: No Rash Objective Data Vital Signs Vital Signs: Vital Signs - 24 hr 06/19/22 14:34 06/19/22 12:00 06/19/22 16:00 Temperature 97.1 F L Pulse Rate 61 115 H 109 H Respiratory Rate 20 Blood Pressure 123/75 Pulse Oximetry 97 06/19/22 20:16 06/19/22 20:00 06/19/22 21:43 Temperature 98.9 F Pulse Rate 111 H 111 H 106 H Respiratory Rate 20 Blood Pressure 107/68 Pulse Oximetry 95 06/20/22 00:00 06/20/22 04:00 06/20/22 05:33 Temperature 98.3 F Pulse
--- NOTE | 2022-06-20 11:28 | PM.PNCARD ---
Progress Note: A&P Assessment and Plan (1) Atrial fibrillation with RVR: Code(s): I48.91 - Unspecified atrial fibrillation Status: Acute Assessment and Plan: New onset AFib/flutter RVR due to sepsis and physiologic stress. Medication monitoring: Sotalol needs to be followed for is proarrhythmic effect. No V-tach on telemetry. The QTC is acceptable today. Anticoagulated with Eliquis Underwent YOLIS guided DCCV today. Restored sinus rhythm with 1 shock at 200 J. Continue Sotalol. (2) Bacteremia: Code(s): R78.81 - Bacteremia Status: Acute Assessment and Plan: Has methicillin-resistant Staph bacteremia And sepsis. On antibiotics, appears to be improving. YOLIS negative for vegetations. (3) S/P aortic valve replacement with bioprosthetic valve: Code(s): Z95.3 - Presence of xenogenic heart valve Status: Acute Assessment and Plan: With a bacteremia there was concern for endocarditis. Echo not suggestive of endocarditis Repeat blood cultures drawn 06/17/22, thus far negative. YOLIS negative for vegetations. (4) Acute hypotension: Code(s): I95.9 - Hypotension, unspecified Status: Acute Assessment and Plan: Stable. On midodrine. (5) Thrombocytopenia: Code(s): D69.6 - Thrombocytopenia, unspecified Status: Acute Assessment and Plan: Monitor. Given DCCV, continue anticoagulation. (6) Chest wall pain: Code(s): R07.89 - Other chest pain Status: Acute Assessment and Plan: Chest discomfort, atypical. EKG without acute changes very minimal elevation of troponin Probably musculoskeletal. (7) Chest pain: Code(s): R07.9 - Chest pain, unspecified Status: Acute Assessment and Plan: appears musculoskeletal. Time Spent With Patient Time with patient: 15 - 25 minutes Subjective Date/time seen: 06/20/22 11:28 Interval history: Reason for visit: Atrial fibrillation with RVR. Patient remains in atrial fibrillation with RVR. Has shortness of breath, fatigue/weakness. No chest pain. NPO for YOLIS/DCCV today. Review of Systems Constitutional: Constitutional: Reports fatigue and Reports weakness Eyes: Eyes: Reports no additional eye complaints ENT: Denies dysphagia and Denies epistaxis Cardiovascular: Cardiovascular: Reports as per HPI and Reports no additional cardiovascular complaints Respiratory: Respiratory: Reports as per HPI and Reports no additional respiratory complaints Gastrointestinal: Gastrointestinal: Reports no additional gastrointestinal complaints Neurologic: Reports system reviewed and no additional complaints, except as documented and Denies confusion Psychiatric: Psychiatric: Denies confusion Hematologic/Lymphatic: Hematologic/Lymphatic: Denies easy bleeding and Denies easy bruising Exam Const: General: cooperative, comfortable and no acute distress Orientation/consciousness: oriented to person and patient oriented x3 HENMT: Mouth: Yes moist mucous membranes Eyes: Sclera: sclerae normal Neck: Neck: supple and no JVD Resp: Effort & Inspection: normal respiratory effort Auscultation: clear to auscultation bilaterally Cardio: Rate: tachycardic Rhythm: abnormal rhythm irregularly irregular GI: Inspection: normal to inspection Auscultation: normal bowel sounds Skin: General skin exam: normal color Neuro: General: oriented to person, patient oriented x3 and confusion Other: Alert and oriented x3 Psych: Mental Status: mental status grossly normal Objective Data Vital Signs Vital Signs: Vital Signs - 24 hr 06/19/22 14:34 06/19/22 12:00 06/19/22 16:00 Temperature 36.2 C L Pulse Rate 61 115 H 109 H Respiratory Rate 20 Blood Pressure 123/75 Pulse Oximetry 97 Oxygen Delivery Oxygen Flow Rate 06/19/22 20:16 06/19/22 20:00 06/19/22 21:43 Temperature 37.2 C Pulse Rate 111 H 111 H 106 H Respir
--- NOTE | 2022-06-20 12:39 | PC.NURSE ---
Pt post cardioversion very lethargic and under anesthetic effects. Unable to obtain consent for PICC. is demented/confused and unable to sign for PICC. Both daughters are requesting to be present for teaching for med administration as mom is somewhat demented, but she does not want to be left out as she feels she needs to understand and play a role. Angela aware of consent for PICC needed.
--- NOTE | 2022-06-20 13:23 | WPDTECDV ---
YOLIS with Cardioversion Date of procedure: 06/20/22 Procedure Type: Date of Procedure: 06/20/2022 Brief History Of Present Illness: Patient is a pleasant 82-year-old male with a history of aortic valve replacement, atrial fibrillation, MSSA bacteremia who is referred for transesophageal echocardiogram for further evaluation for infective endocarditis and rule out intracardiac thrombus prior to synchronized cardioversion. Procedure In Detail: After verbal and written informed consent was obtained, the patient risks, benefits, and alternatives explained in detail. The patient agreed to proceed with the plan of care as outlined above.?The patient was evaluated at bedside in the [facility] procedure room.?The posterior oropharynx, neck, and jaw angle all within normal limits on examination. Lungs were clear to auscultation. See pre-sedation note for further details. The patient was then placed in the appropriate 30 to 45 degree angle supine position at a slight left lateral decubitus position.?Patient was monitored throughout the study with telemetry, oxygen saturation, end-tidal CO2 monitoring, blood pressure, heart rate, and respirations.? The posterior hypopharynx was then locally anesthetized using repeated administration of Hurricaine spray as well as gargled viscous lidocaine.? After local anesthetic of the posterior hypopharynx was achieved and the oral bite block placed, moderate sedation was administered.? After confirmation of adequate moderate sedation, the transesophageal echocardiogram probe was advanced through the oral bite block into the posterior hypopharynx and into the esophagus easily and without complication.? Multiple, multiplanar echocardiographic images were obtained in multiple standard re- projections.? Pulsed wave, continuous-wave, and color-flow Doppler were utilized in conjunction with this study.? At the conclusion of the study, the transesophageal echocardiogram probe was removed easily and without complication.? The patient tolerated the procedure well without difficulty.? Patient was in atrial flutter with RVR during study. After completion of YOLIS, synchronized cardioversion was performed with 1 shock at 200 joules with episcopal of sinus rhythm. Moderate Sedation/Anesthesia administration: Patient reports no prior problems with sedation/anesthesia. Please see pre-sedation noted for physical examination documentation. As noted above, after adequate local anesthesia of the posterior hypopharynx was achieved, a total of?3mg intravenous Versed and a total of 50mcg intravenous Fentanyl in multiple divided doses was administered for moderate sedation.? Sedation start time was 10:13 and end time was 10:50 for a total intra-service/procedure face-face time of?37 minutes.? Sedation was administered by a qualified/certified observer Mell MOSELEY under my supervision with intra-procedure [id number] observation and management throughout the entirety of the procedure.? There were no other issues or complications and patient tolerated the procedure well. See post-anesthesia documentation. FINDINGS: LEFT VENTRICLE: Size and systolic function were within normal limits without wall motion abnormalities with ejection fraction of 60-65%. RIGHT VENTRICLE:? Size and systolic function within normal limits. LEFT ATRIUM: Mildly dilated. RIGHT ATRIUM: Mildly dilated INTERATRIAL SEPTUM: ? No color flow across the interatrial septum. Injection of agitated saline shows mild interatrial shunt. MITRAL VALVE: ? Mitral valve annulus is calcified. There is preserved leaflet excursion and mild regurgitation. No evidence of valvular vegetations. AORTIC VALVE: Bioprosthetic aortic valve is visualized and is well-seated. No evidence of valvular vegetations. TRICUSPID VALVE: The tricuspid valve is anatomically normal with normal leaflet excursion with mild regurgitation identified.? No mobile elements identified. No evidence of valvular vegetations. PULMONIC V
--- NOTE | 2022-06-20 15:14 | PCPTNOTE ---
Patient refused treatment this session. Patient reported he's too pooped from having procedure earlier and working with OT, and wants to rest now.
--- NOTE | 2022-06-20 16:53 | PC.NURSE ---
Pt extremely tired throughout day until about 1600; unable to take AM meds post CV.
[2022-06-20] MEDS: TAMSULOSIN HCL 0.4 MG CAPSULE PO (20:14)
[2022-06-20] MEDS: guaiFENesin 600 MG/DEXTROMETHORPHAN 30 MG SR TAB 12 HR 1 TAB PO (20:14)
[2022-06-20] MEDS: ATORVASTATIN 10 MG TABLET PO (20:18)
[2022-06-20] MEDS: ACETAMINOPHEN 325 MG TABLET 650 MG PO (20:29)
[2022-06-20] MEDS: FUROSEMIDE INJ 40 MG/4 ML VIAL IV PUSH (23:01)
[2022-06-21] VITALS (11 sets, daily range): BP systolic 107–116; BP diastolic 49–57; PULSE 74–83; RESP 16–20; TEMP 36.3–37.3; O2SAT 91–96
[2022-06-21] MEDS: CENTRAL LINE FLUSH 10 ML IV PUSH ×3 (06:13→21:43)
[2022-06-21] MEDS: LEVOTHYROXINE SODIUM 50 MCG TABLET PO (06:13)
--- NOTE | 2022-06-21 09:29 | PM.PNCARD ---
Progress Note: A&P Assessment and Plan (1) Atrial fibrillation with RVR: Code(s): I48.91 - Unspecified atrial fibrillation Status: Acute Assessment and Plan: New onset AFib/flutter RVR due to sepsis and physiologic stress. Anticoagulated with Eliquis Underwent YOLIS guided DCCV yesterday. Restored sinus rhythm with 1 shock at 200 J. Continue Sotalol. Remains in sinus rhythm. (2) Bacteremia: Code(s): R78.81 - Bacteremia Status: Acute Assessment and Plan: Has methicillin-resistant Staph bacteremia And sepsis. On antibiotics, appears to be improving. YOLIS negative for vegetations. (3) S/P aortic valve replacement with bioprosthetic valve: Code(s): Z95.3 - Presence of xenogenic heart valve Status: Acute Assessment and Plan: With a bacteremia there was concern for endocarditis. Echo not suggestive of endocarditis Repeat blood cultures drawn 06/17/22, thus far negative. YOLIS negative for vegetations. (4) Acute hypotension: Code(s): I95.9 - Hypotension, unspecified Status: Acute Assessment and Plan: Stable. On midodrine. (5) Thrombocytopenia: Code(s): D69.6 - Thrombocytopenia, unspecified Status: Acute Assessment and Plan: Monitor. Given DCCV, continue anticoagulation. (6) Chest wall pain: Code(s): R07.89 - Other chest pain Status: Acute Assessment and Plan: Chest discomfort, atypical. EKG without acute changes very minimal elevation of troponin Probably musculoskeletal. (7) Chest pain: Code(s): R07.9 - Chest pain, unspecified Status: Acute Assessment and Plan: appears musculoskeletal. Time Spent With Patient Time with patient: 15 - 25 minutes Subjective Date/time seen: 06/21/22 09:29 Interval history: Reason for visit: Atrial fibrillation with RVR No acute events overnight. Remains in sinus on telemetry. No issues with drinking or eating after YOLIS. Patient states he feels better since being in sinus. Review of Systems Constitutional: Constitutional: Reports fatigue and Reports weakness Eyes: Eyes: Reports no additional eye complaints ENT: Denies dysphagia and Denies epistaxis Cardiovascular: Cardiovascular: Reports as per HPI and Reports no additional cardiovascular complaints Respiratory: Respiratory: Reports as per HPI and Reports no additional respiratory complaints Gastrointestinal: Gastrointestinal: Reports no additional gastrointestinal complaints Neurologic: Reports system reviewed and no additional complaints, except as documented Hematologic/Lymphatic: Hematologic/Lymphatic: Denies easy bleeding and Denies easy bruising Exam Const: General: cooperative, comfortable and no acute distress Orientation/consciousness: oriented to person and patient oriented x3 HENMT: Mouth: Yes moist mucous membranes Eyes: General: appearance normal, both eyes and all related structures Neck: Neck: supple and no JVD Resp: Effort & Inspection: normal respiratory effort Auscultation: clear to auscultation bilaterally Cardio: Rate: regular rate Rhythm: regular rhythm Heart sounds: no murmurs Skin: General skin exam: normal color Neuro: General: oriented to person and patient oriented x3 Other: Alert and oriented x3 Extrem: Other: bilateral upper extremities with edema Psych: Mental Status: mental status grossly normal Objective Data Vital Signs Vital Signs: Vital Signs - 24 hr 06/20/22 10:08 06/20/22 10:10 06/20/22 10:15 Temperature Pulse Rate 107 H 116 H 95 Respiratory Rate 16 16 16 Blood Pressure 110/74 115/69 105/72 Pulse Oximetry 94 94 95 Oxygen Delivery Nasal Cannula Nasal Cannula Nasal Cannula Oxygen Flow Rate 3 3 3 06/20/22 10:20 06/20/22 10:25 06/20/22 10:30 Temperature Pulse Rate 94 107 H 93 Respiratory Rate 16 14 14 Blood Pressure 104/72 124/88 114/72 Pulse Oximetry 94 94 94 Oxygen
--- NOTE | 2022-06-21 09:37 | ECG_ITS ---
Measurements Intervals [place] Rate: 68 P: 1 AR: 339 QRS: -16 QRSD: 115 T: 16 QT: 456 QTc: 487 Interpretive Statements SINUS RHYTHM WITH FIRST DEGREE AV BLOCK MODERATE INTRAVENTRICULAR CONDUCTION DELAY [110+ ms QRS DURATION] PROLONGED QT INTERVAL COMPARED TO ECG 06/20/2022 10:49:23 NO SIGNIFICANT CHANGES Electronically Signed On 06-21-2022 13:19:12 CDT by Tania Muñiz M.D.
[2022-06-21] MEDS: PANTOPRAZOLE SOD SESQUIHYDRATE 20 MG TAB PO (09:48)
[2022-06-21] MEDS: BUDESONIDE 3 MG CAP.SR.24H 6 MG PO (09:48)
[2022-06-21] MEDS: MIDODRINE HCL 2.5 MG TABLET PO ×3 (09:48→17:21)
[2022-06-21] MEDS: ACETAMINOPHEN 325 MG TABLET 650 MG PO (09:48)
[2022-06-21] MEDS: MAGNESIUM OXIDE 200 MG TABLET PO (09:49)
[2022-06-21] MEDS: guaiFENesin 600 MG/DEXTROMETHORPHAN 30 MG SR TAB 12 HR 1 TAB PO ×2 (09:49→20:25)
[2022-06-21] MEDS: SOTALOL HCL 80 MG TABLET PO ×2 (09:49→20:25)
[2022-06-21] MEDS: FIDAXOMICIN 200 MG TABLET PO ×2 (09:49→20:25)
[2022-06-21] MEDS: APIXABAN 5 MG TABLET PO ×2 (09:49→20:25)
[2022-06-21] MEDS: SOLIFENACIN 5 MG TABLET 10 MG PO (09:49)
[2022-06-21] MEDS: CALCIUM CARBONATE (OSCAL) 500 MG TABLET PO (09:49)
[2022-06-21 10:21] LABS: Basophils Percent Auto 0.5 % (0.2-1.2); Eosinophils Absolute Auto 0.1 K/mm3 (0-0.3); Eosinophils Percent Auto 0.9 % (0-4.4); Hematocrit 25.5 % (42.0-52.0); Immature Granulocyte Absolute 0.06 K/mm3 (0.00-0.031); Immature Granulocyte Percent A 1.1 % (0-0.5); Lymphocytes Percent Auto 5.3 % (18.3-44.2); Mean Corpuscular HGB Conc 35.3 g/dl (32-36); Mean Corpuscular Hemoglobin 38.5 pg (26-34); Mean Platelet Volume 10.2 fl (7.4-10.4); Monocytes Absolute Auto 0.3 K/mm3 (0.1-0.6); Monocytes Percent Auto 5.8 % (2.6-8.5); Neutrophils Absolute Auto 4.9 K/mm3 (1.3-6.7); Neutrophils Percent Auto 86.4 % (45.5-73.1); Platelet Count Result 126 k/mm3 (150-375); Red Blood Count 2.34 M/mm3 (4.6-6.20); Red Cell Distribution Width 13.5 % (11.5-14.5); White Blood Count 5.7 K/mm3 (4.5-10.0)
[2022-06-21 10:36] LABS: Albumin Level 2.4 g/dL (3.5-5.1); Anion Gap 5 mmol/L (8-16); Blood Urea Nitrogen 12 mg/dL (9-20); Calcium 6.8 mg/dL (8.4-10.2); Carbon Dioxide 23 mmol/L (22-30); Chloride 96 mmol/L (98-107); Estimated CRCL calculation 43 ml/min; Estimated Glomerular Filt Rate 53; Glucose 105 mg/dL (65-110); Magnesium 1.8 mg/dL (1.6-2.3); Phosphorus 3.4 mg/dL (2.5-4.5); Potassium 3.5 mmol/L (3.4-5.0); Sodium 124 mmol/L (137-145)
[2022-06-21 11:06] LABS: Schistocytes None Seen (NORMAL)
[2022-06-21 11:41] LABS: Platelet Estimate Adequate (Adequate)
[2022-06-21 11:51] LABS: Folic Acid > 20.0 ng/mL (2.76->20); Vitamin B12 > 1000.0 pg/mL (239-931)
--- NOTE | 2022-06-21 12:01 | PM.IMPN ---
Progress Note: A&P Assessment and Plan (1) Septic shock: Code(s): A41.9 - Sepsis, unspecified organism; R65.21 - Severe sepsis with septic shock Status: Acute Assessment and Plan: Patient here for septic shock with septicemia; positive blood cultures for MRSA. BCx 06/13 2of2 positive for MRSA and 1of2 on 06/15. BCx 06/17 remaining negative. No IE by YOLIS. Continue IV vancomycin. No clear focus of infection. Will need PICC placement for IV antibiotics on discharge. Discussed with PharmD ID. Remove central line when we can. (2) Bacteremia: Code(s): R78.81 - Bacteremia Status: Acute Assessment and Plan: As above. BCx positive for MRSA. Repeat BCx 06/17 remaining negative. Patient is improving clinically. No evidence of IE by YOLIS. Plan for 2 weeks of therapy. Need to remove central line. (3) Atrial fibrillation with RVR: Code(s): I48.91 - Unspecified atrial fibrillation Status: Acute Assessment and Plan: Patient was in NSR on admission but developed AFib/RVR related to the sepsis. On anticoagulation. He has been cardioverted and on sotalol now. Appreciate Cardiology input. Continue to monitor on tele. (4) ZORAN (acute kidney injury): Code(s): N17.9 - Acute kidney failure, unspecified Status: Acute Assessment and Plan: Cr 1.6 on admission but normalized. Cr back up today to 1.3. He did receive Lasix x 1 dose last night. Sodium low at 124 as well. Will check urine studies. Check renal US. (5) Hematuria: Code(s): R31.9 - Hematuria, unspecified Status: Acute Assessment and Plan: Having gross heamtura. Related to prostate from delayed Greenwood injury? Will check renal US. Monitor. Will try to avoid a Greenwood placement. Consider urology consult if worsens. He is on Eliquis but can not stop since he was just cardioverted. His Hgb noted and stable. Follow. (6) Diarrhea: Code(s): R19.7 - Diarrhea, unspecified Status: Acute Assessment and Plan: Patient developed diarrhea. Positive C diff on 06/14. Had 4 BMs yesterday but only one today. Continue oral Dificid Day 6. (7) CHF (congestive heart failure): Code(s): I50.9 - Heart failure, unspecified Status: Acute Assessment and Plan: CXR on 06/16 showing only atelectasis. Cumulative total positive 12L but inaccurate. Arm edema noted and doppler negative for DVT. Patient feels this has been present for 2 days. Notes state no edema except for pre-tibial edema. Radiology recommended CT chest to exclude SVT obstruction. Given the acute onset, will proceed with CT. No contrast since renal function worse today (8) BPH without obstruction/lower urinary tract symptoms: Code(s): N40.0 - Benign prostatic hyperplasia without lower urinary tract symptoms Status: Acute Assessment and Plan: Stable. Continue Flomax (9) Elevated d-dimer: Code(s): R79.89 - Other specified abnormal findings of blood chemistry Status: Acute Assessment and Plan: Likely related to sepsis. Bilateral lower extremity venous duplex negative for DVT. Upper extremity negative today. (10) Thrombocytopenia: Code(s): D69.6 - Thrombocytopenia, unspecified Status: Acute Assessment and Plan: Patient has chronic thrombocytopenia that worsened to 34K. This is secondary to septicemia. Plt count better at 126K. MCV elevated. B12 normal so consider myeoldysplasia. Follow. (11) Acute UTI: Code(s): N39.0 - Urinary tract infection, site not specified Status: Acute Assessment and Plan: UA noted. UCx negative. UTI ruled out (12) Hypothyroidism, unspecified: Code(s): E03.9 - Hypothyroidism, unspecified Status: Acute Assessment and Plan: TSH normal last month. Continue levothyroxine Plan Calcium 6.8 but corrected with albumin of 2.4 = 8.4. Follow. Continue supplements. Subjective D
--- NOTE | 2022-06-21 12:42 | PC.NURSE ---
0845 Evaluated patient for picc line placement for 2 weeks of IV vancomycin. Patient found to have extreme edema of the left arm, from the hand to almost axilla area and same on right arm, from the hand to above elbow area. Patient has right IJ triple lumen catheter for all infusions and blood draws, so no infiltrations or blood draws to explain edema. I scanned the left arm with my ultrasound and did not find an obvious occlusion. Patient unsure when edema occurred, but he thinks it was in the last couple of days. I spoke with Dr. Muñiz (surgical assist) about the bilateral arm edema. She said that the patient did have the arm edema yesterday and does not feel that it is CHF related. I spoke with the charge nurse, Elena, and explained that a work up needs to be done to find the cause of this edema, because I cannot place a picc line an arm with edema and slow the blood/fluid return further.
[2022-06-21 15:43] LABS: Add Urine Microscopic? YES; Appearance Urine Cloudy (Clear); Bacteria Urine 1+ /hpf; Bilirubin Urine Negative (Negative); Blood Urine 3+ (Negative); Color Urine Yellow (Yellow); Glucose Urine UA Negative (Negative); Ketones Urine Negative (Negative); Leukocyte Esterase Ur Negative LEU/UL (NEGATIVE); Mucus Urine Rare /lpf; Nitrate Urine Negative (Negative); Protein Urine Negative (Negative); RBC Urine 21-50 /hpf (0-2); Specific Grav Ur 1.009 (1.001-1.035); Squamous Epithelial Cell Urine Rare /hpf (Few); Urobilinogen Urine Negative mg/dL (<2.0)
[2022-06-21 15:56] LABS: Creatinine Urine 83.2 mg/dL
[2022-06-21 16:01] LABS: Sodium Urine Random 20 meq/L
[2022-06-21 16:38] LABS: Eosinophil Urine None Seen % (None Seen)
[2022-06-21] MEDS: PHENAZOPYRIDINE HCL 100 MG TABLET PO (18:44)
[2022-06-21] MEDS: TAMSULOSIN HCL 0.4 MG CAPSULE PO (20:25)
[2022-06-21] MEDS: ATORVASTATIN 10 MG TABLET PO (20:25)
[2022-06-22] VITALS (11 sets, daily range): BP systolic 100–115; BP diastolic 54–59; PULSE 68–76; RESP 18–26; TEMP 36.4–36.8; O2SAT 94–95
[2022-06-22 04:35] LABS: Hematocrit 24.6 % (42.0-52.0); Hemoglobin 8.5 g/dL (14.0-18.0); Mean Corpuscular HGB Conc 34.6 g/dl (32-36); Mean Corpuscular Hemoglobin 37.4 pg (26-34); Mean Corpuscular Volume 108.4 fl (80-100); Mean Platelet Volume 10.4 fl (7.4-10.4); Platelet Count Result 126 k/mm3 (150-375); Red Blood Count 2.27 M/mm3 (4.6-6.20); Red Cell Distribution Width 13.5 % (11.5-14.5); White Blood Count 6.3 K/mm3 (4.5-10.0)
[2022-06-22 04:45] LABS: Albumin Level 2.3 g/dL (3.5-5.1); Anion Gap 7 mmol/L (8-16); Blood Urea Nitrogen 14 mg/dL (9-20); Carbon Dioxide 23 mmol/L (22-30); Chloride 94 mmol/L (98-107); Estimated CRCL calculation 38 ml/min; Estimated Glomerular Filt Rate 45; Glucose 99 mg/dL (65-110); Magnesium 1.8 mg/dL (1.6-2.3); Phosphorus 3.9 mg/dL (2.5-4.5); Potassium 3.5 mmol/L (3.4-5.0); Sodium 124 mmol/L (137-145)
[2022-06-22] MEDS: CENTRAL LINE FLUSH 10 ML IV PUSH ×3 (05:46→20:59)
[2022-06-22] MEDS: LEVOTHYROXINE SODIUM 50 MCG TABLET PO (05:46)
[2022-06-22] MEDS: MIDODRINE HCL 2.5 MG TABLET PO ×3 (08:15→17:42)
[2022-06-22] MEDS: CALCIUM CARBONATE (OSCAL) 500 MG TABLET PO (08:15)
[2022-06-22] MEDS: PHENAZOPYRIDINE HCL 100 MG TABLET PO (08:15)
[2022-06-22] MEDS: MAGNESIUM OXIDE 200 MG TABLET PO (08:15)
[2022-06-22] MEDS: SOLIFENACIN 5 MG TABLET 10 MG PO (08:15)
[2022-06-22] MEDS: PANTOPRAZOLE SOD SESQUIHYDRATE 20 MG TAB PO (08:16)
[2022-06-22] MEDS: SOTALOL HCL 80 MG TABLET PO ×2 (08:16→20:07)
[2022-06-22] MEDS: FIDAXOMICIN 200 MG TABLET PO ×2 (08:16→20:07)
[2022-06-22] MEDS: guaiFENesin 600 MG/DEXTROMETHORPHAN 30 MG SR TAB 12 HR 1 TAB PO ×2 (08:16→20:07)
[2022-06-22] MEDS: APIXABAN 5 MG TABLET PO ×2 (08:16→20:07)
[2022-06-22 12:02] LABS: Vancomycin Trough 26.4 ug/mL (10.0-20.0)
--- NOTE | 2022-06-22 15:54 | PM.IMPN ---
Progress Note: A&P Assessment and Plan (1) Septic shock: Code(s): A41.9 - Sepsis, unspecified organism; R65.21 - Severe sepsis with septic shock Status: Acute Assessment and Plan: Patient here for septic shock with septicemia; positive blood cultures for MRSA. BCx 06/13 2of2 positive for MRSA and 1of2 on 06/15. BCx 06/17 remaining negative. No IE by YOLIS. Continue IV vancomycin (started 06/15 1240). No clear focus of infection. Will need PICC placement for IV antibiotics on discharge. Discussed with PharmD ID. Remove central line when we can. (2) Bacteremia: Code(s): R78.81 - Bacteremia Status: Acute Assessment and Plan: As above. BCx positive for MRSA. Repeat BCx 06/17 remaining negative. Patient is improving clinically. No evidence of IE by YOLIS. Plan for 2 weeks of therapy. Need to remove central line. (3) Atrial fibrillation with RVR: Code(s): I48.91 - Unspecified atrial fibrillation Status: Acute Assessment and Plan: Patient was in NSR on admission but developed AFib/RVR related to the sepsis. On anticoagulation since 06/16. He has been cardioverted and on sotalol now. Appreciate Cardiology input. Continue to monitor on tele. (4) ZORAN (acute kidney injury): Code(s): N17.9 - Acute kidney failure, unspecified Status: Acute Assessment and Plan: Cr 1.6 on admission but normalized. Cr back up today to 1.5. He did receive Lasix x 1 dose on the evening of 06/21. Sodium low at 124 as well. Urine studies more consistent with pre-renal but patient eating well. Urine eos negative. Renal US showing bilateral simple cysts but no other issues. EF 60-65%. UA was cloudy wiht 3+ blood and 21-50 RBC but he was having gross hematuria. Urine SG 1.009. Is he re-equilibrating? UOP not accurate but patient does not feel UOP has changed much. Rise to Cr has slowed. Will follow. (5) Hematuria: Code(s): R31.9 - Hematuria, unspecified Status: Acute Assessment and Plan: Having gross hematura. Related to prostate from delayed [place] injury? Renal US as above. Hgb noted and stable. Bleeding appears to have stopped. Follow. (6) C. difficile colitis: Code(s): A04.72 - Enterocolitis due to Clostridium difficile, not specified as recurrent Status: Acute Assessment and Plan: Patient developed diarrhea. Positive C diff on 06/14. Had 2 BMs today. Continue oral Dificid Day 7. Stop Enterocort. (7) CHF (congestive heart failure): Code(s): I50.9 - Heart failure, unspecified Status: Acute Assessment and Plan: CXR on 06/16 showing only atelectasis. Diffusely edematous. Appears to be 3rd spacing fluids. Albumin 2.3 which could explain this. Add lasix when able. (8) Edema of both upper arms: Code(s): R60.0 - Localized edema Status: Acute Assessment and Plan: Arm edema noted and doppler negative for DVT. Patient feels this has been present for 2-3 days. Notes state no edema except for pre-tibial edema. Radiology recommended CT chest to exclude SVT obstruction but no contrast given the ZORAN. Feel less likely given the negative UE doppler and that he has been on Eliquis since 06/16. Discussed with radiology and they recommended MRI chest that was ordered. Albumin has been trending down (related to diarrhea?) which could explain this. If MRA okay (or at least does not show large clot) will remove central line and place PICC. (9) BPH without obstruction/lower urinary tract symptoms: Code(s): N40.0 - Benign prostatic hyperplasia without lower urinary tract symptoms Status: Acute Assessment and Plan: Stable. Continue Flomax (10) Elevated d-dimer: Code(s): R79.89 - Other specified abnormal findings of blood chemistry Status: Acute Assessment and Plan: Likely related to sepsis. Bilateral lower extremity venous duplex negative for DVT. Upper extremity negative as well.
[2022-06-22] MEDS: FLUTICASONE PROPIONATE 0.05% NA SPR 16 GM BTL (*BKC) 2 SPRAY NASAL (17:41)
[2022-06-22] MEDS: SODIUM CHLORIDE 500 MG TABLET PO (19:35)
[2022-06-22] MEDS: ATORVASTATIN 10 MG TABLET PO (20:07)
[2022-06-22] MEDS: TAMSULOSIN HCL 0.4 MG CAPSULE PO (20:07)
[2022-06-23] VITALS (11 sets, daily range): BP systolic 101–122; BP diastolic 54–73; PULSE 63–78; RESP 18–20; TEMP 36.1–36.7; O2SAT 94–97
[2022-06-23 04:09] LABS: Hematocrit 24.6 % (42.0-52.0); Hemoglobin 8.7 g/dL (14.0-18.0); Mean Corpuscular HGB Conc 35.4 g/dl (32-36); Mean Corpuscular Volume 107.4 fl (80-100); Platelet Count Result 124 k/mm3 (150-375); Red Blood Count 2.29 M/mm3 (4.6-6.20); Red Cell Distribution Width 13.6 % (11.5-14.5); White Blood Count 6.6 K/mm3 (4.5-10.0)
[2022-06-23 04:21] LABS: Alanine Aminotransferase 19 U/L (6-50); Albumin Level 2.1 g/dL (3.5-5.1); Alkaline Phosphatase 67 U/L (38-126); Anion Gap 5 mmol/L (8-16); Aspartate Amino Transferase 21 U/L (17-59); Bilirubin,Total 0.6 mg/dL (0.2-1.3); Blood Urea Nitrogen 22 mg/dL (9-20); Calcium 6.8 mg/dL (8.4-10.2); Carbon Dioxide 22 mmol/L (22-30); Chloride 94 mmol/L (98-107); Estimated CRCL calculation 33 ml/min; Estimated Glomerular Filt Rate 39; Glucose 97 mg/dL (65-110); Magnesium 1.9 mg/dL (1.6-2.3); Potassium 3.7 mmol/L (3.4-5.0); Sodium 121 mmol/L (137-145)
[2022-06-23] MEDS: LEVOTHYROXINE SODIUM 50 MCG TABLET PO (06:14)
[2022-06-23] MEDS: MIDODRINE HCL 2.5 MG TABLET PO ×3 (09:55→18:09)
[2022-06-23] MEDS: SOTALOL HCL 80 MG TABLET PO ×2 (09:55→21:08)
[2022-06-23] MEDS: APIXABAN 5 MG TABLET PO ×2 (09:55→21:06)
[2022-06-23] MEDS: guaiFENesin 600 MG/DEXTROMETHORPHAN 30 MG SR TAB 12 HR 1 TAB PO ×2 (09:55→21:05)
[2022-06-23] MEDS: PANTOPRAZOLE SOD SESQUIHYDRATE 20 MG TAB PO (09:55)
[2022-06-23] MEDS: CALCIUM CARBONATE (OSCAL) 500 MG TABLET PO (09:55)
[2022-06-23] MEDS: FIDAXOMICIN 200 MG TABLET PO ×2 (09:55→21:07)
[2022-06-23] MEDS: VANCOMYCIN ORAL 125 MG/2.5 ML SYRUP PO ×2 (09:56→18:10)
[2022-06-23] MEDS: SODIUM CHLORIDE 1 GM TABLET PO ×2 (09:56→18:09)
[2022-06-23] MEDS: MAGNESIUM OXIDE 200 MG TABLET PO (09:56)
[2022-06-23] MEDS: ALBUMIN HUMAN 25% 25 GM/100 ML 100 ML IVPB ×2 (09:56→18:10)
[2022-06-23] MEDS: SOLIFENACIN 5 MG TABLET 10 MG PO (09:57)
[2022-06-23] MEDS: CENTRAL LINE FLUSH 10 ML IV PUSH ×3 (09:57→21:11)
[2022-06-23] MEDS: FLUTICASONE PROPIONATE 0.05% NA SPR 16 GM BTL (*BKC) 2 SPRAY NASAL (10:04)
--- NOTE | 2022-06-23 10:08 | PM.CNNEP ---
Assessment and Plan Assessment and plan (1) ZORAN (acute kidney injury): Code(s): N17.9 - Acute kidney failure, unspecified Status: Acute Assessment and Plan: the patient has acute kidney injury. He has normal creatinine at baseline. His renal ultrasound is unremarkable. UA shows some blood and a few white cells. Urine electrolytes are pre renal there are several possibilities which may be playing a role. He had MRSA sepsis. This could affect the kidneys but it would be unusual for the kidneys to do this after his septic episode is better so I think this is not likely. C diff colitis can affect the kidneys as well. He does still have active diarrhea and a little bit of abdominal tenderness. Dehydration could do this and he does have diarrhea; he does have quite a bit of swelling. I suppose the swelling could be due to his low albumin and so have intravascular volume depletion leading to the pre renal electrolytes and rising creatinine. The patient could have a reaction to the vancomycin. This is at about the right time. His levels are a little bit high but I think the levels went up because the kidney function decreased not the opposite especially. The patient could have rhabdomyolysis which I doubt but we can check a CPK. The patient has blood and white cells in the urine, but no protein. Will recheck a culture of the urine. Glomerulonephritis is a possible but unlikely diagnosis in this scenario. Will check some serology just in case. Allergic interstitial nephritis is possible. We will check an eosinophil in the blood. Urine eosinophils are newly found to not be very sensitive. Will check serology, immunofixation, CPK, urine culture. (2) Septic shock: Code(s): A41.9 - Sepsis, unspecified organism; R65.21 - Severe sepsis with septic shock Status: Acute Assessment and Plan: The patient is on vancomycin for the MRSA. Considering the possibility that might be causing some kidney issues, will discuss switching to linezolid. (3) C. difficile colitis: Code(s): A04.72 - Enterocolitis due to Clostridium difficile, not specified as recurrent Status: Acute Assessment and Plan: The patient is on Dificid. Things seem to be settling down. (4) Edema of both upper arms: Code(s): R60.0 - Localized edema Status: Acute Assessment and Plan: The patient has swelling in the arms and in the legs. Possibly this is due to the low albumin. Will try albumin infusion with Lasix Chaser. (5) Atrial fibrillation with RVR: Code(s): I48.91 - Unspecified atrial fibrillation Status: Acute Assessment and Plan: the patient is in sinus rhythm and anticoagulated. (6) Acute on chronic anemia: Code(s): D64.9 - Anemia, unspecified Status: Acute Assessment and Plan: Hemoglobin is holding fairly stable in the high 8. (7) Mixed hyperlipidemia: Code(s): E78.2 - Mixed hyperlipidemia Status: Acute Assessment and Plan: He is on atorvastatin at home (8) Hypothyroidism, unspecified: Code(s): E03.9 - Hypothyroidism, unspecified Status: Acute Assessment and Plan: getting supplements (9) Essential hypertension: Code(s): I10 - Essential (primary) hypertension Status: Acute Assessment and Plan: blood pressure is soft right now. He is off his blood pressure medications. In fact he is on midodrine. History of Present Illness Reason for Consult Consult date: 06/23/22 Chief Complaint Chief complaint: UTI History of Present Illness Narrative: Naga is a very pleasant 82-year-old gentleman who has multiple medical problems including hypertension, diabetes, no retinopathy, hyperlipidemia, thrombocytopenia, latent TB, kidney stones 20 years ago, basal cell carcinoma, BPH, coronary disease, aortic valve replacement, diastolic dysfunction, moderate
--- NOTE | 2022-06-23 14:38 | PCPTNOTE ---
Patient refused treatment this afternoon. Patient encouraged to participate prior to going back to bed and patient refused.
--- NOTE | 2022-06-23 15:23 | PM.IMPN ---
Progress Note: A&P Assessment and Plan (1) Edema of both upper arms: Code(s): R60.0 - Localized edema Status: Acute Assessment and Plan: Arm edema noted and doppler negative for DVT. Patient feels this has been present for past few days. Notes state no edema except for pre-tibial edema. Radiology recommended CT chest to exclude SVT obstruction but no contrast given the ZORAN and MRI chest won't provide information needed (per radiology). Albumin continues to decline with worsening renal function and worsening hyponatremia. Urine electrolytes more consistent with intravascular depletion. Suspect patient is 3rd spacing fluid given the diffuse edema. Doubt that he has SVC syndrome given the fact that he has been on anticoagulation for the past week and that his symptoms began after that. Also that his face is not edematous. As such do not feel SVC syndrome is likely. Will plan to remove his central line once we get a peripheral line in place. 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 There is no protein in his urine. Will start albumin. Lasix was added. Discussed with Nephrology. Appreciate their input. (2) ZORAN (acute kidney injury): Code(s): N17.9 - Acute kidney failure, unspecified Status: Acute Assessment and Plan: Cr 1.6 on admission but normalized. Cr back up today to 1.7. He did receive Lasix x 1 dose on the evening of 06/21. Sodium low at 121 and Urine studies more consistent with pre-renal but patient eating well. Urine eos negative. Renal US showing bilateral simple cysts but no other issues. EF 60-65%. UA was cloudy with 3+ blood and 21-50 RBC but he was having gross hematuria; no protein. Urine SG 1.009. Is he re-equilibrating? Rise to Cr has slowed. As above (3) Septic shock: Code(s): A41.9 - Sepsis, unspecified organism; R65.21 - Severe sepsis with septic shock Status: Acute Assessment and Plan: Patient here for septic shock with septicemia; positive blood cultures for MRSA. BCx 06/13 2of2 positive for MRSA and 1of2 on 06/15. BCx 06/17 remaining negative. No IE by YOLIS. Continue IV vancomycin (started 06/15 1240). No clear focus of infection. Will need PICC placement for IV antibiotics on discharge. Discussed with PharmD ID. Remove central line when we can. (4) Bacteremia: Code(s): R78.81 - Bacteremia Status: Acute Assessment and Plan: As above. BCx positive for MRSA. Repeat BCx 06/17 remaining negative. Patient is improving clinically. No evidence of IE by YOLIS. Plan for 2 weeks of IV therapy starting at last negative BCx (06/17). Need to remove central line. (5) Atrial fibrillation with RVR: Code(s): I48.91 - Unspecified atrial fibrillation Status: Acute Assessment and Plan: Patient was in NSR on admission but developed AFib/RVR related to the sepsis. On anticoagulation since 06/16. He has been cardioverted and on sotalol now. Appreciate Cardiology input. Continue to monitor on tele. (6) Hematuria: Code(s): R31.9 - Hematuria, unspecified Status: Acute Assessment and Plan: Having gross hematura. Related to prostate from delayed [place] injury? Renal US as above. Hgb noted and stable. Bleeding has stopped. Follow. (7) C. difficile colitis: Code(s): A04.72 - Enterocolitis due to Clostridium difficile, not specified as recurrent Status: Acute Assessment and Plan: Patient developed diarrhea. Positive C diff on 06/14. Continue oral Dificid Day 8. Enterocort was stopped. Will add oral Vanco. (8) CHF (congestive heart failure): Code(s): I50.9 - Heart failure, unspecified Status: Acute Assessment and Plan: CXR on 06/16 showing only atelectasis. Diffusely edematous. Appears to be 3rd spacing fluids. Albumin 2.1 which could explain this. As above. (9) BPH without obstruction/lower urinary tract symptoms: Code(s): N40.0 - Benign pros
[2022-06-23] MEDS: FUROSEMIDE INJ 40 MG/4 ML VIAL 20 MG IV PUSH (18:09)
[2022-06-23] MEDS: ATORVASTATIN 10 MG TABLET PO (21:06)
[2022-06-23] MEDS: TAMSULOSIN HCL 0.4 MG CAPSULE PO (21:09)
[2022-06-23 22:58] LABS: Creatine Kinase < 20 U/L (55-170)
[2022-06-23 23:05] LABS: Complement C3 63 mg/dL (88-165)
[2022-06-23 23:28] LABS: Cortisol Random 9.14 ug/dL
[2022-06-24] VITALS (11 sets, daily range): BP systolic 101–114; BP diastolic 51–63; PULSE 60–80; RESP 16–20; TEMP 36.1–37.5; O2SAT 94–97
[2022-06-24] MEDS: ALBUMIN HUMAN 25% 25 GM/100 ML 100 ML IVPB ×2 (00:33→05:25)
[2022-06-24] MEDS: VANCOMYCIN ORAL 125 MG/2.5 ML SYRUP PO ×4 (00:33→17:02)
[2022-06-24] MEDS: CENTRAL LINE FLUSH 10 ML IV PUSH ×3 (05:25→21:01)
[2022-06-24 06:10] LABS: Mean Corpuscular HGB Conc 34.2 g/dl (32-36); Mean Corpuscular Volume 108.3 fl (80-100); Mean Platelet Volume 10.3 fl (7.4-10.4); Platelet Count Result 100 k/mm3 (150-375); Red Blood Count 1.81 M/mm3 (4.6-6.20); Red Cell Distribution Width 13.6 % (11.5-14.5); White Blood Count 3.7 K/mm3 (4.5-10.0)
[2022-06-24 06:21] LABS: Albumin Level 2.5 g/dL (3.5-5.1); Anion Gap 7 mmol/L (8-16); Blood Urea Nitrogen 27 mg/dL (9-20); Calcium 7.1 mg/dL (8.4-10.2); Carbon Dioxide 21 mmol/L (22-30); Chloride 96 mmol/L (98-107); Estimated CRCL calculation 29 ml/min; Estimated Glomerular Filt Rate 34; Glucose 89 mg/dL (65-110); Magnesium 1.9 mg/dL (1.6-2.3); Phosphorus 4.2 mg/dL (2.5-4.5); Potassium 3.3 mmol/L (3.4-5.0); Sodium 124 mmol/L (137-145)
[2022-06-24] MEDS: LEVOTHYROXINE SODIUM 50 MCG TABLET PO (07:08)
[2022-06-24 07:49] LABS: Hematocrit 19.6 % (42.0-52.0); Hemoglobin 6.7 g/dL (14.0-18.0)
[2022-06-24] MEDS: APIXABAN 5 MG TABLET PO ×2 (08:53→21:02)
[2022-06-24] MEDS: SOLIFENACIN 5 MG TABLET 10 MG PO (08:54)
[2022-06-24] MEDS: MAGNESIUM OXIDE 200 MG TABLET PO (08:54)
[2022-06-24] MEDS: SOTALOL HCL 80 MG TABLET PO ×2 (08:54→21:02)
[2022-06-24] MEDS: FIDAXOMICIN 200 MG TABLET PO ×2 (08:54→21:05)
[2022-06-24] MEDS: FUROSEMIDE INJ 40 MG/4 ML VIAL 20 MG IV PUSH (08:54)
[2022-06-24] MEDS: PANTOPRAZOLE SOD SESQUIHYDRATE 20 MG TAB PO (08:54)
[2022-06-24] MEDS: CALCIUM CARBONATE (OSCAL) 500 MG TABLET PO (08:54)
[2022-06-24] MEDS: guaiFENesin 600 MG/DEXTROMETHORPHAN 30 MG SR TAB 12 HR 1 TAB PO ×2 (08:54→21:04)
[2022-06-24] MEDS: MIDODRINE HCL 2.5 MG TABLET PO ×3 (08:54→17:04)
[2022-06-24] MEDS: SODIUM CHLORIDE 1 GM TABLET PO (08:55)
[2022-06-24] MEDS: FLUTICASONE PROPIONATE 0.05% NA SPR 16 GM BTL (*BKC) 2 SPRAY NASAL (08:55)
[2022-06-24 09:02] LABS: Hemoglobin 7.2 g/dL (14.0-18.0); Mean Corpuscular HGB Conc 34.3 g/dl (32-36); Mean Corpuscular Hemoglobin 37.3 pg (26-34); Mean Corpuscular Volume 108.8 fl (80-100); Mean Platelet Volume 10.1 fl (7.4-10.4); Platelet Count Result 102 k/mm3 (150-375); Red Blood Count 1.93 M/mm3 (4.6-6.20); Red Cell Distribution Width 13.5 % (11.5-14.5); White Blood Count 4.2 K/mm3 (4.5-10.0)
--- NOTE | 2022-06-24 09:17 | PM.PNNEP ---
Progress Note: A&P Assessment and Plan (1) ZORAN (acute kidney injury): Code(s): N17.9 - Acute kidney failure, unspecified Status: Acute Assessment and Plan: the patient has acute kidney injury. He has normal creatinine at baseline. His renal ultrasound is unremarkable. UA shows some blood and a few white cells. Urine electrolytes are pre renal CK is normal complements are low. there are several possibilities which may be playing a role. former sepsis, C diff colitis, pre renal azotemia due to low albumin, possible reaction to vancomycin . he is off the vancomycin. I am not sure the significance of the low complements. This could be due to inflammation from his C diff. Will see what the other serology shows. Even if there was a glomerulonephritis we could not treat it with his active C diff. Allergic interstitial nephritis is possible. (2) Septic shock: Code(s): A41.9 - Sepsis, unspecified organism; R65.21 - Severe sepsis with septic shock Status: Acute Assessment and Plan: The patient is on antibiotic for the MRSA. (3) C. difficile colitis: Code(s): A04.72 - Enterocolitis due to Clostridium difficile, not specified as recurrent Status: Acute Assessment and Plan: The patient is on Dificid. Things seem to be settling down. He has had fewer bowel movements lately. (4) Edema of both upper arms: Code(s): R60.0 - Localized edema Status: Acute Assessment and Plan: The patient has swelling in the arms and in the legs. Arm edema may be because his arms or dependent.Possibly this is due to the low albumin. Albumin level is better. Will hold off on albumin and give extra diuretics because of his shortness of breath. (5) Atrial fibrillation with RVR: Code(s): I48.91 - Unspecified atrial fibrillation Status: Acute Assessment and Plan: the patient is in sinus rhythm and anticoagulated. (6) Acute on chronic anemia: Code(s): D64.9 - Anemia, unspecified Status: Acute Assessment and Plan: hemoglobin suddenly fell to 6.7 today. Possible GI bleed versus hemolysis versus dilution from the albumin? The latter seems somewhat Unlikely considering the volume it would take to bring the hemoglobin down this low. (7) Mixed hyperlipidemia: Code(s): E78.2 - Mixed hyperlipidemia Status: Acute Assessment and Plan: He is on atorvastatin at home (8) Hypothyroidism, unspecified: Code(s): E03.9 - Hypothyroidism, unspecified Status: Acute Assessment and Plan: getting supplements (9) Essential hypertension: Code(s): I10 - Essential (primary) hypertension Status: Acute Assessment and Plan: blood pressure is soft right now. He is off his blood pressure medications. In fact he is on midodrine. (10) Shortness of breath: Code(s): R06.02 - Shortness of breath Status: Acute Assessment and Plan: the patient is short of breath today. Will check a chest x-ray. It is possible that the albumin mobilized fluid but the kidneys did not get rid of this. Will give diuretics. I asked nursing to call me with his urine output in 4 hours. The anemia is probably contributing to that as well. (11) Hyponatremia: Code(s): E87.1 - Hypo-osmolality and hyponatremia Status: Acute Plan sodium was low at 121 yesterday and has increased to 124 today. Cortisol level is low. He is not on steroids. He is on budesonide but has not received this lately. Will check Cortrosyn stim. TSH is normal. Most likely this is due to the renal insufficiency and pre renal factors. Although he has had some mild hyponatremia in the past. CT of the head and chest x-ray are negative. No history of cancer. Pantoprazole as the only medicine that might cause hyponatremia. Consider changing to Pepcid? Since it
[2022-06-24 09:56] LABS: Erythrocyte Sedimentation Rate 39 mm/hr (0-20)
[2022-06-24] MEDS: COSYNTROPIN 0.25 MG/ML VIAL IV PUSH (10:23)
[2022-06-24] MEDS: BUMETANIDE INJ 1 MG/4 ML VIAL 2 MG IV PUSH ×3 (10:24→21:01)
[2022-06-24 10:30] LABS: Basophils Percent Auto 0.6 % (0.2-1.2); Eosinophils Percent Auto 0.6 % (0-4.4); Hematocrit 23.7 % (42.0-52.0); Hemoglobin 8.3 g/dL (14.0-18.0); Immature Granulocyte Absolute 0.04 K/mm3 (0.00-0.031); Immature Granulocyte Percent A 0.6 % (0-0.5); Lymphocytes Absolute Auto 0.48 K/mm3 (0.9-3.2); Lymphocytes Percent Auto 7.5 % (18.3-44.2); Mean Corpuscular Hemoglobin 38.1 pg (26-34); Mean Corpuscular Volume 108.7 fl (80-100); Mean Platelet Volume 9.6 fl (7.4-10.4); Monocytes Absolute Auto 0.4 K/mm3 (0.1-0.6); Monocytes Percent Auto 5.8 % (2.6-8.5); Neutrophils Absolute Auto 5.4 K/mm3 (1.3-6.7); Neutrophils Percent Auto 84.9 % (45.5-73.1); Platelet Count Result 106 k/mm3 (150-375); Red Blood Count 2.18 M/mm3 (4.6-6.20); Red Cell Distribution Width 13.4 % (11.5-14.5); White Blood Count 6.4 K/mm3 (4.5-10.0)
[2022-06-24 10:45] LABS: Lactate Dehydrogenase 162 U/L (120-246)
[2022-06-24 10:57] LABS: Platelet Estimate Decreased (Adequate)
[2022-06-24 10:58] LABS: Anisocytosis 1+ (NORMAL); Ovalocytes 1+ (NORMAL); Tear Drop Cells 1+ (NORMAL)
[2022-06-24 10:59] LABS: Schistocytes None Seen (NORMAL)
--- NOTE | 2022-06-24 11:53 | PM.IMPN ---
Progress Note: A&P Assessment and Plan (1) Edema of both upper arms: Code(s): R60.0 - Localized edema Status: Acute Assessment and Plan: Arm edema noted and doppler negative for UE DVT. Patient feels this has been present for past few days. Notes state no edema except for pre-tibial edema. Radiology recommended CT chest to exclude SVT obstruction but no contrast due to the ZORAN and MRI chest won't provide information needed (per radiology). Albumin dropped to 2.1 with worsening renal function and worsening hyponatremia. Urine electrolytes more consistent with intravascular depletion. Suspect patient is 3rd spacing fluid given the diffuse edema. Doubt that he has SVC syndrome given the fact that he has been on anticoagulation for the past week and that his symptoms began after that. Also that his face is not edematous. As such do not feel SVC syndrome is likely. Will plan to remove his central line once we get a peripheral line in place. 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 C3/C4 low as well consistent with protein loss. There is no protein in his urine. IV albumin started. Diuretics added. Nephrology consulted and appreciate their input. (2) ZORAN (acute kidney injury): Code(s): N17.9 - Acute kidney failure, unspecified Status: Acute Assessment and Plan: Cr 1.6 on admission but normalized. Cr back up today to 1.9. Sodium low at 121 and Urine studies more consistent with pre-renal but patient eating well. Urine eos negative. Renal US showing bilateral simple cysts but no other issues. EF 60-65%. UA was cloudy with 3+ blood and 21-50 RBC but he was having gross hematuria; no protein. Urine SG 1.009. Suspect intravascular dry with 3rd spacing. Treated with albumin and diuretics. Nephrology consulted and appreciate their input. (3) Septic shock: Code(s): A41.9 - Sepsis, unspecified organism; R65.21 - Severe sepsis with septic shock Status: Acute Assessment and Plan: Patient here for septic shock with septicemia; positive blood cultures for MRSA. BCx 06/13 2of2 positive for MRSA and 1of2 on 06/15. BCx 06/17 remaining negative. No IE by YOLIS. Continue IV vancomycin (started 06/15 1240). No clear focus of infection. Will need PICC placement for IV antibiotics on discharge. Discussed with PharmD ID. Remove central line when we can. Vanco could be contributing to his above issues so will change to Daptomycin. (4) Bacteremia: Code(s): R78.81 - Bacteremia Status: Acute Assessment and Plan: As above. BCx positive for MRSA. Repeat BCx 06/17 remaining negative. Patient is improving clinically. No evidence of IE by YOLIS. Plan for 2 weeks of IV therapy starting at last negative BCx (06/17). Need to remove central line. As above (5) Atrial fibrillation with RVR: Code(s): I48.91 - Unspecified atrial fibrillation Status: Acute Assessment and Plan: Patient was in NSR on admission but developed AFib/RVR related to the sepsis. On anticoagulation since 06/16. He has been cardioverted and on sotalol now. Appreciate Cardiology input. Continue to monitor on tele. (6) Hematuria: Code(s): R31.9 - Hematuria, unspecified Status: Acute Assessment and Plan: Patient was having gross hematuria a few days after the [place] was removed. Related to prostate from delayed [place] injury? Renal US as above. Bleeding stopped about 2 days ago. Hgb noted at 6.7 today but felt to be lab error. Repeat hgb 8.3 which is at his baseline. Follow. (7) C. difficile colitis: Code(s): A04.72 - Enterocolitis due to Clostridium difficile, not specified as recurrent Status: Acute Assessment and Plan: Patient developed diarrhea. Positive C diff on 06/14. Continue oral Dificid Day 9. Enterocort was stopped. Oral Vanco added to improve diarrhea. (8) CHF (congestive heart failure): Code(s): I50.9 - Heart failure, unspeci
[2022-06-24] MEDS: TAMSULOSIN HCL 0.4 MG CAPSULE PO (21:04)
[2022-06-25] VITALS (21 sets, daily range): BP systolic 104–146; BP diastolic 55–93; PULSE 58–84; RESP 16–28; TEMP 36.1–36.8; O2SAT 92–100
[2022-06-25] MEDS: VANCOMYCIN ORAL 125 MG/2.5 ML SYRUP PO ×4 (00:46→17:07)
[2022-06-25] MEDS: LEVOTHYROXINE SODIUM 50 MCG TABLET PO (05:54)
[2022-06-25] MEDS: CENTRAL LINE FLUSH 10 ML IV PUSH ×3 (05:55→22:34)
[2022-06-25 06:34] LABS: Albumin Level 2.7 g/dL (3.5-5.1); Anion Gap 9 mmol/L (8-16); Blood Urea Nitrogen 29 mg/dL (9-20); Calcium 7.2 mg/dL (8.4-10.2); Carbon Dioxide 22 mmol/L (22-30); Chloride 94 mmol/L (98-107); Estimated CRCL calculation 25 ml/min; Estimated Glomerular Filt Rate 29; Glucose 89 mg/dL (65-110); INR 1.7; Phosphorus 4.6 mg/dL (2.5-4.5); Potassium 3.2 mmol/L (3.4-5.0); Prothrombin Time 19.4 Seconds (11.1-14.7); Sodium 125 mmol/L (137-145)
[2022-06-25 06:35] LABS: Partial Thromboplastin Time 39.7 SECONDS (22.3-36.8)
[2022-06-25 06:40] LABS: Basophils Percent Auto 0.9 % (0.2-1.2); Eosinophils Absolute Auto 0.1 K/mm3 (0-0.3); Eosinophils Percent Auto 2.1 % (0-4.4); Immature Granulocyte Absolute 0.03 K/mm3 (0.00-0.031); Immature Granulocyte Percent A 0.9 % (0-0.5); Lymphocytes Absolute Auto 0.53 K/mm3 (0.9-3.2); Lymphocytes Percent Auto 15.6 % (18.3-44.2); Mean Corpuscular HGB Conc 34.7 g/dl (32-36); Mean Corpuscular Hemoglobin 37.6 pg (26-34); Mean Corpuscular Volume 108.4 fl (80-100); Mean Platelet Volume 10.3 fl (7.4-10.4); Monocytes Absolute Auto 0.3 K/mm3 (0.1-0.6); Monocytes Percent Auto 7.9 % (2.6-8.5); Neutrophils Absolute Auto 2.5 K/mm3 (1.3-6.7); Neutrophils Percent Auto 72.6 % (45.5-73.1); Platelet Count Result 116 k/mm3 (150-375); Red Blood Count 1.78 M/mm3 (4.6-6.20); Red Cell Distribution Width 13.2 % (11.5-14.5); White Blood Count 3.4 K/mm3 (4.5-10.0)
[2022-06-25 07:14] LABS: Hematocrit 19.3 % (42.0-52.0); Hemoglobin 6.7 g/dL (14.0-18.0)
[2022-06-25 07:16] LABS: Anisocytosis 1+ (NORMAL)
[2022-06-25 07:22] LABS: Schistocytes None Seen (NORMAL)
[2022-06-25 08:36] LABS: Immature Platelet Fraction Pct 4.2 % (0.9-11.2); Mean Corpuscular Hemoglobin 37.9 pg (26-34); Mean Corpuscular Volume 108.2 fl (80-100); Mean Platelet Volume 9.8 fl (7.4-10.4); Platelet Count Result 119 k/mm3 (150-375); Red Blood Count 1.82 M/mm3 (4.6-6.20); Red Cell Distribution Width 13.4 % (11.5-14.5); White Blood Count 3.7 K/mm3 (4.5-10.0)
[2022-06-25 08:47] LABS: Hemoglobin 6.9 g/dL (14.0-18.0)
[2022-06-25 08:48] LABS: Hematocrit 19.7 % (42.0-52.0)
[2022-06-25 09:11] LABS: Iron 62 ug/dL (49-181)
[2022-06-25 09:21] LABS: Percent Iron Saturation 31 % (20-50)
[2022-06-25] MEDS: BUMETANIDE INJ 1 MG/4 ML VIAL 2 MG IV PUSH ×2 (09:47→22:35)
[2022-06-25] MEDS: APIXABAN 5 MG TABLET PO (09:48)
[2022-06-25] MEDS: CALCIUM CARBONATE (OSCAL) 500 MG TABLET PO (09:48)
[2022-06-25] MEDS: SODIUM CHLORIDE 1 GM TABLET PO ×2 (09:48→17:07)
[2022-06-25] MEDS: guaiFENesin 600 MG/DEXTROMETHORPHAN 30 MG SR TAB 12 HR 1 TAB PO ×2 (09:49→22:34)
[2022-06-25] MEDS: PANTOPRAZOLE SOD SESQUIHYDRATE 20 MG TAB PO (09:49)
[2022-06-25] MEDS: FIDAXOMICIN 200 MG TABLET PO ×2 (09:49→22:34)
[2022-06-25] MEDS: SOLIFENACIN 5 MG TABLET 10 MG PO (09:49)
[2022-06-25] MEDS: MAGNESIUM OXIDE 200 MG TABLET PO (09:49)
[2022-06-25] MEDS: MIDODRINE HCL 2.5 MG TABLET PO (09:49)
[2022-06-25] MEDS: SOTALOL HCL 80 MG TABLET PO ×2 (09:49→22:34)
[2022-06-25] MEDS: FLUTICASONE PROPIONATE 0.05% NA SPR 16 GM BTL (*BKC) 2 SPRAY NASAL (09:50)
--- NOTE | 2022-06-25 10:04 | ECG_ITS ---
Measurements Intervals [place] Rate: 67 P: -29 DC: 332 QRS: -2 QRSD: 113 T: 16 QT: 466 QTc: 493 Interpretive Statements SINUS RHYTHM WITH FIRST DEGREE AV BLOCK MODERATE INTRAVENTRICULAR CONDUCTION DELAY [110+ ms QRS DURATION] PROLONGED QT INTERVAL INTERPRETATION BASED ON A DEFAULT AGE OF 40 YEARS COMPARED TO ECG 06/21/2022 12:00:51 NO SIGNIFICANT CHANGES Electronically Signed On 06-25-2022 12:20:25 CDT by Tania Muñiz M.D.
--- NOTE | 2022-06-25 11:20 | PM.IMPN ---
Progress Note: A&P Assessment and Plan (1) Anemia: Code(s): D64.9 - Anemia, unspecified Status: Acute Assessment and Plan: Hemoglobin was low yesterday but this was drawn out of a line. Repeat hemoglobin later in the day was 8.3 without transfusion. Hemoglobin was 6.7 this morning. However on a peripheral CBC, hemoglobin was still low at 6.9. Iron studies noted and felt related to protein loss. Transfuse. Bumex 1mg afer the 1st unit and give schedule Bumex 2mg after the 2nd. Follow HH. Stool guaiac pending. (2) Chest pain: Code(s): R07.9 - Chest pain, unspecified Status: Acute Assessment and Plan: Patient woke up with chest pain this morning. EKG performed showing no acute findings. This was reviewed personally. Prolonged QT at 483 possibly related to the sotalol. Could be related to the anemia. Check troponins. Will check chest x-ray. Transfuse as above. (3) Edema of both upper arms: Code(s): R60.0 - Localized edema Status: Acute Assessment and Plan: Arm edema noted and doppler negative for UE DVT. Radiology recommended CT chest to exclude SVT obstruction but no contrast due to the ZORAN and MRI chest won't provide information needed (per radiology). Albumin dropped to 2.1 with worsening renal function and worsening hyponatremia. Urine electrolytes more consistent with intravascular depletion. Suspect patient is 3rd spacing fluid given the diffuse edema (with sparing of head/neck) making SVC syndrome unlikely; plus he has been on anticoagulation for the past week prior to the onset of symptoms. Will plan to remove his central line once we get a peripheral line in place. 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 C3/C4 low as well consistent with protein loss. There is no protein in his urine. Treated with IV albumin and Diuretics scheduled. PRBC should help. Nephrology consulted and appreciate their input. (4) ZORAN (acute kidney injury): Code(s): N17.9 - Acute kidney failure, unspecified Status: Acute Assessment and Plan: Cr 1.6 on admission but normalized to 0.8. Cr back up today to 2.2. Sodium was low at 121 and Urine studies more consistent with pre-renal but patient eating well. Urine eos negative. Renal US showing bilateral simple cysts but no acute issues. EF 60-65%. UA 06/21 was cloudy with 3+ blood and 21-50 RBC but he was having gross hematuria; no protein. Urine SG 1.009. Suspect intravascular dry with 3rd spacing. Treated with albumin and diuretics. UOP 1600 yesterday and 650mL so far today. Nephrology consulted and appreciate their input. PRBC will help with oncotic pressure. (5) CHF (congestive heart failure): Code(s): I50.9 - Heart failure, unspecified Status: Acute Assessment and Plan: CXR 06/24 reviewed showing diffuse bilateral airspace disease with small pleural effusions. Diffusely edematous. Appears to be 3rd spacing fluids. As above. (6) Septic shock: Code(s): A41.9 - Sepsis, unspecified organism; R65.21 - Severe sepsis with septic shock Status: Acute Assessment and Plan: Patient here for septic shock with septicemia; positive blood cultures for MRSA. BCx 06/13 2of2 positive for MRSA and 1of2 on 06/15. BCx 06/17 remaining negative. No IE by YOLIS. Was on IV vancomycin (started 06/15 1240). No clear focus of infection. Will need PICC placement for IV antibiotics on discharge. Discussed with PharmD ID. Remove central line when we can. Vanco could be contributing to his ZORAN so changed to Daptomycin (06/24 at 9am). (7) Bacteremia: Code(s): R78.81 - Bacteremia Status: Acute Assessment and Plan: As above. BCx positive for MRSA. Repeat BCx 06/17 remaining negative. Patient is improving clinically. No evidence of IE by YOLIS. Plan for 2 weeks of IV therapy starting at last negative BCx (06/17). Need to remove central line but with persistent arm edema. As
--- NOTE | 2022-06-25 12:05 | PM.PNNEP ---
Progress Note: A&P Assessment and Plan (1) ZORAN (acute kidney injury): Code(s): N17.9 - Acute kidney failure, unspecified Status: Acute Assessment and Plan: the patient has acute kidney injury. He has normal creatinine at baseline. His renal ultrasound is unremarkable. UA shows some blood and a few white cells. Urine electrolytes are pre renal CK is normal complements are low. possibilities for etiology include former sepsis, C diff colitis, pre renal azotemia due to low albumin, possible reaction to vancomycin . he is off the vancomycin. I suspect that the low complements are due to protein malnutrition as Dr. Birmingham suggested. Allergic interstitial nephritis is possible. At this point he is volume overloaded. He is better than he was yesterday but still short of breath. His creatinine worsened pus to be from the diuretics or possibly from progression of kidney disease. I had a long conversation with the patient. Will try more diuretics today and fees still short of breath tomorrow consider dialysis. He is written as being allergic to sulfa. This caused confusion not a rash. He has tolerated hydrochlorothiazide in the past so I think we can give metolazone as a kickr to the loop diuretic. Will hold apixaban today in case he needs a catheter for dialysis tomorrow. (2) Septic shock: Code(s): A41.9 - Sepsis, unspecified organism; R65.21 - Severe sepsis with septic shock Status: Acute Assessment and Plan: The patient is on antibiotic for the MRSA. (3) C. difficile colitis: Code(s): A04.72 - Enterocolitis due to Clostridium difficile, not specified as recurrent Status: Acute Assessment and Plan: The patient is on Dificid. Things seem to be settling down. This is gradually better symptomatically. (4) Edema of both upper arms: Code(s): R60.0 - Localized edema Status: Acute Assessment and Plan: The patient has swelling in the arms and in the legs. Arm edema may be because his arms or dependent.Possibly this is due to the low albumin. Albumin level is better. (5) Atrial fibrillation with RVR: Code(s): I48.91 - Unspecified atrial fibrillation Status: Acute Assessment and Plan: the patient is in sinus rhythm and anticoagulated. (6) Acute on chronic anemia: Code(s): D64.9 - Anemia, unspecified Status: Acute Assessment and Plan: hemoglobin suddenly fell to 6.7 today. Repeat was up his baseline above 8 but now the hemoglobin is low again. This time repeat is not so good. He is going to get a blood transfusion (7) Mixed hyperlipidemia: Code(s): E78.2 - Mixed hyperlipidemia Status: Acute Assessment and Plan: He is on atorvastatin at home (8) Hypothyroidism, unspecified: Code(s): E03.9 - Hypothyroidism, unspecified Status: Acute Assessment and Plan: getting supplements (9) Essential hypertension: Code(s): I10 - Essential (primary) hypertension Status: Acute Assessment and Plan: blood pressure is between 100 and 110. (10) Shortness of breath: Code(s): R06.02 - Shortness of breath Status: Acute Assessment and Plan: the patient is short of breath today But better. Will add metolazone. Reassess tomorrow to see if he needs dialysis (11) Hyponatremia: Code(s): E87.1 - Hypo-osmolality and hyponatremia Status: Acute Assessment and Plan: sodium was low at 121 yesterday and has increased to 124 today. Cortisol level is low. Cortrosyn stim resulted in a cortisol level 31. TSH is normal. Most likely this is due to the renal insufficiency and pre renal factors. Although he has had some mild hyponatremia in the past. CT of the head and chest x-ray are negative. No history of cancer. Pantoprazole as the only medicine that might cause hy
[2022-06-25] MEDS: SODIUM CHLORIDE 0.9% IV 250 ML 30 ML IV CONT (12:15)
[2022-06-25 12:26] LABS: IFOB Positive Control Positive; Immunochemical Fecal Occult Bl Positive (N)
[2022-06-25 12:28] LABS: Troponin I 0.071 ng/mL (0.000-0.034)
[2022-06-25 12:41] LABS: Troponin I 0.061 ng/mL (0.000-0.034)
[2022-06-25 16:20] LABS: Troponin I 0.047 ng/mL (0.000-0.034)
[2022-06-25] MEDS: BUMETANIDE INJ 1 MG/4 ML VIAL IV PUSH (17:06)
[2022-06-25] MEDS: metOLazone 5 MG TABLET PO (17:07)
[2022-06-25] MEDS: TAMSULOSIN HCL 0.4 MG CAPSULE PO (22:34)
[2022-06-26] VITALS (11 sets, daily range): BP systolic 114–138; BP diastolic 55–70; PULSE 59–66; RESP 16–18; TEMP 36.1–36.3; O2SAT 93–95
[2022-06-26] MEDS: VANCOMYCIN ORAL 125 MG/2.5 ML SYRUP PO ×5 (00:24→23:54)
[2022-06-26] MEDS: LEVOTHYROXINE SODIUM 50 MCG TABLET PO (06:01)
[2022-06-26] MEDS: CENTRAL LINE FLUSH 10 ML IV PUSH (06:01)
[2022-06-26 06:23] LABS: Basophils Percent Auto 0.8 % (0.2-1.2); Eosinophils Absolute Auto 0.1 K/mm3 (0-0.3); Eosinophils Percent Auto 1.4 % (0-4.4); Hematocrit 27.9 % (42.0-52.0); Hemoglobin 9.9 g/dL (14.0-18.0); Immature Granulocyte Absolute 0.04 K/mm3 (0.00-0.031); Immature Granulocyte Percent A 0.8 % (0-0.5); Immature Platelet Fraction Pct 3.6 % (0.9-11.2); Lymphocytes Absolute Auto 0.75 K/mm3 (0.9-3.2); Lymphocytes Percent Auto 15.4 % (18.3-44.2); Mean Corpuscular HGB Conc 35.5 g/dl (32-36); Mean Corpuscular Hemoglobin 35.1 pg (26-34); Mean Corpuscular Volume 98.9 fl (80-100); Mean Platelet Volume 9.7 fl (7.4-10.4); Monocytes Absolute Auto 0.4 K/mm3 (0.1-0.6); Monocytes Percent Auto 7.6 % (2.6-8.5); Neutrophils Absolute Auto 3.6 K/mm3 (1.3-6.7); Platelet Count Result 124 k/mm3 (150-375); Red Blood Count 2.82 M/mm3 (4.6-6.20); Red Cell Distribution Width 17.4 % (11.5-14.5); White Blood Count 4.9 K/mm3 (4.5-10.0)
[2022-06-26 06:31] LABS: Alanine Aminotransferase 26 U/L (6-50); Albumin Level 2.8 g/dL (3.5-5.1); Alkaline Phosphatase 71 U/L (38-126); Anion Gap 7 mmol/L (8-16); Aspartate Amino Transferase 30 U/L (17-59); Bilirubin,Total 1.5 mg/dL (0.2-1.3); Blood Urea Nitrogen 32 mg/dL (9-20); Calcium 7.5 mg/dL (8.4-10.2); Carbon Dioxide 25 mmol/L (22-30); Chloride 94 mmol/L (98-107); Estimated CRCL calculation 24 ml/min; Estimated Glomerular Filt Rate 27; Glucose 93 mg/dL (65-110); Magnesium 1.7 mg/dL (1.6-2.3); Phosphorus 4.7 mg/dL (2.5-4.5); Potassium 3.4 mmol/L (3.4-5.0); Sodium 126 mmol/L (137-145)
[2022-06-26] MEDS: CALCIUM CARBONATE (OSCAL) 500 MG TABLET PO (09:07)
[2022-06-26] MEDS: MAGNESIUM OXIDE 200 MG TABLET PO (09:07)
[2022-06-26] MEDS: SOLIFENACIN 5 MG TABLET 10 MG PO (09:08)
[2022-06-26] MEDS: guaiFENesin 600 MG/DEXTROMETHORPHAN 30 MG SR TAB 12 HR 1 TAB PO ×2 (09:09→20:17)
[2022-06-26] MEDS: FLUTICASONE PROPIONATE 0.05% NA SPR 16 GM BTL (*BKC) 2 SPRAY NASAL (09:09)
[2022-06-26] MEDS: SODIUM CHLORIDE 1 GM TABLET PO ×2 (09:09→17:20)
[2022-06-26] MEDS: PANTOPRAZOLE SOD SESQUIHYDRATE 20 MG TAB PO (09:09)
[2022-06-26] MEDS: SOTALOL HCL 80 MG TABLET PO ×2 (09:09→20:17)
[2022-06-26] MEDS: BUMETANIDE INJ 1 MG/4 ML VIAL 2 MG IV PUSH ×2 (09:30→17:20)
--- NOTE | 2022-06-26 10:42 | PM.PNCARD ---
Progress Note: A&P Assessment and Plan (1) Chest pain: Code(s): R07.9 - Chest pain, unspecified Status: Acute Assessment and Plan: Had an episode of chest pain on 06/25. No longer having chest pain. Likely due to Hgb drop down to 6.7. Troponins were mildly elevated and then downtrended. ECG without ischemic changes. Would monitor for now. (2) Atrial fibrillation with RVR: Code(s): I48.91 - Unspecified atrial fibrillation Status: Acute Assessment and Plan: New onset AFib/flutter RVR due to sepsis and physiologic stress. Anticoagulated with Eliquis, however, Eliquis is now on hold due to concern for GI bleed. Continue Sotalol. Remains in sinus rhythm since his YOLIS-guided DCCV. QTc acceptable on 06/25 EKG. Given his recent DCCV, would try to resume his Eliquis when stable from a bleeding standpoint. (3) Bacteremia: Code(s): R78.81 - Bacteremia Status: Acute Assessment and Plan: Has methicillin-resistant Staph bacteremia And sepsis. YOLIS negative for vegetations. (4) S/P aortic valve replacement with bioprosthetic valve: Code(s): Z95.3 - Presence of xenogenic heart valve Status: Acute Assessment and Plan: With a bacteremia there was concern for endocarditis. Echo not suggestive of endocarditis YOLIS negative for vegetations. Time Spent With Patient Time with patient: 15 - 25 minutes Subjective Date/time seen: 06/26/22 10:42 Interval history: Reason for visit: Chest pain. Cardiology re-consulted for episode of chest pain that occurred yesterday. Patient's Hgb had dropped down to 6.7, fecal occult test was positive. Troponins were checked with initial 0.071 --> 0.061 --> 0.047. GI consulted given Hgb drop. Patient this morning states he feels okay. Has no chest pain. Denies shortness of breath. Review of Systems Review of Systems: 8-point ROS obtained. Negative, unless stated in HPI. Exam Const: General: comfortable and no acute distress HENMT: Mouth: Yes dry mucous membranes Eyes: General: appearance normal, both eyes and all related structures Neck: Neck: supple Resp: Effort & Inspection: normal respiratory effort Auscultation: diminished lung sounds Cardio: Rate: regular rate Rhythm: regular rhythm Heart sounds: no murmurs GI: GI Palp: Yes Soft to palpation and No Tenderness to palpation present (GI) Skin: General skin exam: normal color Neuro: Speech: normal speech Extrem: Other: Bilateral arms with edema Psych: Mental Status: mental status grossly normal Objective Data Vital Signs Vital Signs: Vital Signs - 24 hr 06/25/22 13:02 06/25/22 14:00 06/25/22 13:25 Temperature 36.2 C L 36.1 C L 36.2 C L Pulse Rate 65 61 65 Respiratory Rate 28 H 16 24 H Blood Pressure 125/61 133/55 L 132/55 L Pulse Oximetry 96 97 100 06/25/22 14:25 06/25/22 16:44 06/25/22 18:31 Temperature 36.6 C 36.3 C L 36.3 C L Pulse Rate 65 62 66 Respiratory Rate 26 H 26 H 24 H Blood Pressure 118/66 135/70 131/66 Pulse Oximetry 98 95 96 06/25/22 12:00 06/25/22 16:00 06/25/22 15:25 Temperature 36.3 C L Pulse Rate 68 62 62 Respiratory Rate 28 H Blood Pressure 139/64 Pulse Oximetry 96 06/25/22 18:52 06/25/22 22:00 06/25/22 22:34 Temperature 36.3 C L 36.4 C Pulse Rate 66 68 68 Respiratory Rate 24 H 18 Blood Pressure 139/67 143/93 H Pulse Oximetry 96 92 06/25/22 21:52 06/25/22 22:10 06/25/22 22:53 Temperature 36.2 C L 36.2 C L 36.4 C Pulse Rate 64 66 68 Respiratory Rate 16 16 18 Blood Pressure 142/82 H 146/76 H 143/93 H Pulse Oximetry 94 95 92 06/25/22 20:00 06/26/22 00:00 06/26/22 04:00 Temperature Pulse Rate 69 61 63 Respiratory Rate Blood Pressure Pulse Oximetry 06/26/22 05:15 06/26/22 09:09 Temperature 36.3 C L Pulse Rate 62 66 Respiratory Rate 18 Blood Pressure 138/70 Pulse Oximetry 93 Intake/Output Intake/Output: Intake & Output
--- NOTE | 2022-06-26 10:49 | PM.IMPN ---
Progress Note: A&P Assessment and Plan (1) Anemia: Code(s): D64.9 - Anemia, unspecified Status: Acute Assessment and Plan: Hemoglobin was low yesterday and remained low on repeat testing. Iron studies noted and felt related to protein loss. Transfused 2U. Bumex 1mg after the 1st unit and he remains on scheduled Bumex 2mg. Hgb back up to 10. He feels better with improved energy. Follow HH. Stool guaiac positive and GI consulted. Eliquis on hold. (2) Chest pain: Code(s): R07.9 - Chest pain, unspecified Status: Acute Assessment and Plan: Patient woke up with chest pain yesterday morning. EKG performed showing no acute findings. Prolonged QT at 483 possibly related to the sotalol. CP could be related to the anemia. Troponins were elevated but trending down. CXR showing extensive bilateral disease. Patient transfused. Cards made aware. Follow. (3) Edema of both upper arms: Code(s): R60.0 - Localized edema Status: Acute Assessment and Plan: Arm edema noted and doppler negative for UE DVT. Radiology recommended CT chest to exclude SVT obstruction but no contrast due to the ZORAN and MRI chest won't provide information needed (per radiology). Albumin dropped to 2.1 with worsening renal function and worsening hyponatremia. Urine electrolytes more consistent with intravascular depletion. Suspect patient is 3rd spacing fluid given the diffuse edema (with sparing of head/neck) making SVC syndrome unlikely; plus he has been on anticoagulation for the past 7+ days prior to the onset of symptoms. Will plan to remove his central line once we get a peripheral line in place. 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 C3/C4 low as well consistent with protein loss. There is no protein in his urine. Treated with IV albumin and Diuretics scheduled. PRBC should have helped. Nephrology consulted and appreciate their input. (4) ZORAN (acute kidney injury): Code(s): N17.9 - Acute kidney failure, unspecified Status: Acute Assessment and Plan: Cr 1.6 on admission but normalized to 0.8. Cr back up today to 2.3. Sodium was low at 121 and Urine studies more consistent with pre-renal but patient eating well. Urine eos negative. Renal US showing bilateral simple cysts but no acute issues. EF 60-65%. UA 06/21 was cloudy with 3+ blood and 21-50 RBC but he was having gross hematuria; no protein. Urine SG 1.009. Suspect intravascular dry with 3rd spacing. Treated with albumin and diuretics. UOP 1300 yesterday and 1000mL so far today. Nephrology consulted and appreciate their input. PRBC probably helped with oncotic pressure. (5) CHF (congestive heart failure): Code(s): I50.9 - Heart failure, unspecified Status: Acute Assessment and Plan: CXR showing extensive bilateral disease. Diffusely edematous. Appears to be 3rd spacing fluids. Probably a component of acute diastolic CHF exacerbation. As above. (6) Septic shock: Code(s): A41.9 - Sepsis, unspecified organism; R65.21 - Severe sepsis with septic shock Status: Acute Assessment and Plan: Patient here for septic shock with septicemia; positive blood cultures for MRSA. BCx 06/13 2of2 positive for MRSA and 1of2 on 06/15. BCx 06/17 remaining negative. No IE by YOLIS. Was on IV vancomycin (started 06/15 1240). No clear focus of infection. Will need PICC placement for IV antibiotics on discharge if able (now has ZORAN). Discussed with PharmD ID. Remove central line when we can. Vanco could be contributing to his ZORAN so changed to Daptomycin (06/24 at 9am). (7) Bacteremia: Code(s): R78.81 - Bacteremia Status: Acute Assessment and Plan: As above. BCx positive for MRSA. Repeat BCx 06/17 remaining negative. Patient is improving clinically. No evidence of IE by YOLIS. Plan for 2 weeks of IV therapy starting at last negative BCx (06/17). Need to remove central line but with p
--- NOTE | 2022-06-26 12:13 | PM.PNNEP ---
Progress Note: A&P Assessment and Plan (1) ZORAN (acute kidney injury): Code(s): N17.9 - Acute kidney failure, unspecified Status: Acute Assessment and Plan: the patient has acute kidney injury. He has normal creatinine at baseline. His renal ultrasound is unremarkable. UA shows some blood and a few white cells. Urine electrolytes are pre renal CK is normal complements are low. possibilities for etiology include former sepsis, C diff colitis, pre renal azotemia due to low albumin, possible reaction to vancomycin . he is off the vancomycin. I suspect that the low complements are due to protein malnutrition as Dr. Birmingham suggested. Allergic interstitial nephritis is possible. he is still volume overloaded. Urine output is okay. Will continue fluid restriction. Hopefully intake /output will be negative and he will start to feel better. His acute kidney injury should start improving soon. Today his creatinine is about the same as it was yesterday so maybe he is reaching a plateau and will start improving soon. We discussed that if we can't get fluid off he will eventually need dialysis. He understands this. He says he feels okay enough to hold off another day to see if the kidney start to get better. (2) Septic shock: Code(s): A41.9 - Sepsis, unspecified organism; R65.21 - Severe sepsis with septic shock Status: Acute Assessment and Plan: The patient is on antibiotic for the MRSA. (3) C. difficile colitis: Code(s): A04.72 - Enterocolitis due to Clostridium difficile, not specified as recurrent Status: Acute Assessment and Plan: The patient is on Dificid. Things seem to be settling down. Eating pretty well. Stools are a little bit better. (4) Edema of both upper arms: Code(s): R60.0 - Localized edema Status: Acute Assessment and Plan: The patient has swelling in the arms and in the legs. Arm edema may be because his arms or dependent.Possibly this is due to the low albumin. Albumin level is better. (5) Atrial fibrillation with RVR: Code(s): I48.91 - Unspecified atrial fibrillation Status: Acute Assessment and Plan: the patient is in sinus rhythm and anticoagulated. His Eliquis is on hold right now because of the possibility of a catheter. (6) Acute on chronic anemia: Code(s): D64.9 - Anemia, unspecified Status: Acute Assessment and Plan: hemoglobin is improved to 9.9 today. This also may be part of the reason that he is a little less short of breath. (7) Mixed hyperlipidemia: Code(s): E78.2 - Mixed hyperlipidemia Status: Acute Assessment and Plan: He is on atorvastatin at home (8) Hypothyroidism, unspecified: Code(s): E03.9 - Hypothyroidism, unspecified Status: Acute Assessment and Plan: getting supplements (9) Essential hypertension: Code(s): I10 - Essential (primary) hypertension Status: Acute Assessment and Plan: blood pressure is between 100 and 110. (10) Shortness of breath: Code(s): R06.02 - Shortness of breath Status: Acute Assessment and Plan: the patient is short of breath today But better. Will add metolazone. Reassess tomorrow to see if he needs dialysis (11) Hyponatremia: Code(s): E87.1 - Hypo-osmolality and hyponatremia Status: Acute Assessment and Plan: sodium was low at 121 yesterday and has increased to 124 today. Cortisol level is low. Cortrosyn stim resulted in a cortisol level 31. TSH is normal. Most likely this is due to the renal insufficiency and pre renal factors. Although he has had some mild hyponatremia in the past. CT of the head and chest x-ray are negative. No history of cancer. Pantoprazole as the only medicine that might cause hyponatremia. Consider changing to Pepcid? wi
[2022-06-26] MEDS: NEOMYCIN/POLYMYXIN/BACITRACIN OINTMENT PACKET 1 PACKET (13:00)
--- NOTE | 2022-06-26 13:22 | PCNFU ---
Nutrition Follow-Up Complete: Altered GI function related to diarrhea as evidenced by GI documentation Goal: Improved GI symptoms - Goal being met. Pt is eating better and incidents of diarrhea decreasing Pt current nutrition is Heart healthy diet. Banatrol BID. 1000 ml/day fluid restriction. Nutrition recommendation: Continue current diet order and monitoring. Last recorded weight is 95.4 kg. Bowel Motility: +2 BMs yesterday. Diarrhea improving Labs Reviewed:hgb 9.9, Hct 27.9, Alb 2.8, Na 126, BUN 32, Creat 2.3 Meds Noted: Eliquis, protonix, synthroid Skin: WNL Additional Notes: Intakes are good, improved from 40%-90% over the last 2 days. Monitor intake, wt, GI. Follow up in 7 days.
--- NOTE | 2022-06-26 15:21 | PCOTNOTE ---
Attempted to see Patient this afternoon. Patient verbalized he had just returned to bed from walking to the bathroom. Patient has had enough today, already worked with Physical therapy. Patient's and family member present at this time.
--- NOTE | 2022-06-26 15:36 | WPDGICN ---
Assessment and Plan Assessment and plan (1) Occult blood in stools: Code(s): R19.5 - Other fecal abnormalities Status: Acute Assessment and Plan: wonder if positive because he has active C diff which is being treated now patient says that had colonoscopy last year, no overt gib other reasons for anemia include renal failure, infection, previous hematuria, etc monitor h/h, no scope unless obvious bleeding conservative treatment (2) C. difficile colitis: Code(s): A04.72 - Enterocolitis due to Clostridium difficile, not specified as recurrent Status: Acute Assessment and Plan: on treatment with vancomycin (3) Bacteremia: Code(s): R78.81 - Bacteremia Status: Acute Assessment and Plan: on iv antibiotic (4) Atrial fibrillation with RVR: Code(s): I48.91 - Unspecified atrial fibrillation Status: Acute Assessment and Plan: treated (5) Hematuria: Code(s): R31.9 - Hematuria, unspecified Status: Acute Assessment and Plan: resolved (6) ZORAN (acute kidney injury): Code(s): N17.9 - Acute kidney failure, unspecified Status: Acute Assessment and Plan: monitor by nephrology (7) Acute on chronic anemia: Code(s): D64.9 - Anemia, unspecified Status: Acute Assessment and Plan: monitor probably multifactorial GI Consult Note Consult date/time: 06/26/22 15:36 Reason for consult: fobt, acute on chronic anemia, C diff colitis HPI: Naga De Leon is a 82 year old male with history of CAD, aortic valve replacement, moderate pulmonary hypertension, diastolic dysfunction and HTN admitted 06/13 for a fall and change in mental status finally diagnosed with MRSA septicemia. During hospitalization also had Afib then started anticoagulation since 06/16 but now on hold, cardioverted 06/20 and on sotalol now, hematuria, developed C diff colitis and currently on treatment (diarrhea improving), renal failure. He had more anemia, occult blood in stool positive but no overt gib, he received blood transfusion. Patient had colonoscopy last year and was told that unremarkable. Review of Systems Constitutional: Constitutional: Reports fatigue Eyes: Eyes: Reports no additional eye complaints ENT: Reports Normal hearing present Cardiovascular: Cardiovascular: Reports palpitations Respiratory: Respiratory: Denies cough Gastrointestinal: Gastrointestinal: Reports no additional gastrointestinal complaints Genitourinary: Genitourinary: Reports hematuria (resolved) Musculoskeletal: Musculoskeletal: Denies back pain Integumentary/Breasts: Skin/Breast: Denies rash Neurologic: Denies Abnormal speech present Psychiatric: Psychiatric: Denies anxiety [facility] Past Medical History Medical History (Updated 06/26/22 @ 15:43 by Tian Recinos MD) Anemia Basal cell carcinoma BPH (benign prostatic hyperplasia) Collagenous colitis Coronary artery disease Diastolic dysfunction Echocardiogram 04/2022: EF 70% grade 1 diastolic dysfunction, aortic valve prosthesis with good function, moderate pulmonary hypertension Essential hypertension Gastroesophageal reflux H/O bladder problems Hyponatremia Hypothyroidism, unspecified Insomnia Kidney stones Latent tuberculosis Treated with INH in 1959 Mild persistent asthma without complication Mixed hyperlipidemia Occult blood in stools Shortness of breath Thrombocytopenia Surgical History Surgical History H/O aortic valve replacement (2013) 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
[2022-06-26] MEDS: metOLazone 5 MG TABLET PO (17:18)
[2022-06-26] MEDS: ATORVASTATIN 10 MG TABLET PO (20:17)
[2022-06-26] MEDS: TAMSULOSIN HCL 0.4 MG CAPSULE PO (20:17)
[2022-06-27] VITALS (7 sets, daily range): BP systolic 127–133; BP diastolic 59–74; PULSE 62–68; RESP 18; TEMP 36.3–36.4; O2SAT 93–95
[2022-06-27] MEDS: LEVOTHYROXINE SODIUM 50 MCG TABLET PO (05:19)
[2022-06-27] MEDS: VANCOMYCIN ORAL 125 MG/2.5 ML SYRUP PO ×3 (05:19→17:10)
[2022-06-27 06:13] LABS: Basophils Absolute Auto 0.1 K/mm3 (0.0-0.1); Basophils Percent Auto 1.4 % (0.2-1.2); Eosinophils Absolute Auto 0.1 K/mm3 (0-0.3); Eosinophils Percent Auto 1.4 % (0-4.4); Hematocrit 28.5 % (42.0-52.0); Hemoglobin 9.8 g/dL (14.0-18.0); Immature Granulocyte Absolute 0.04 K/mm3 (0.00-0.031); Immature Platelet Fraction Pct 3.3 % (0.9-11.2); Mean Corpuscular HGB Conc 34.4 g/dl (32-36); Mean Corpuscular Hemoglobin 34.6 pg (26-34); Mean Corpuscular Volume 100.7 fl (80-100); Mean Platelet Volume 9.6 fl (7.4-10.4); Monocytes Absolute Auto 0.4 K/mm3 (0.1-0.6); Monocytes Percent Auto 8.3 % (2.6-8.5); Neutrophils Absolute Auto 2.9 K/mm3 (1.3-6.7); Neutrophils Percent Auto 68.9 % (45.5-73.1); Platelet Count Result 113 k/mm3 (150-375); Red Blood Count 2.83 M/mm3 (4.6-6.20); Red Cell Distribution Width 17.2 % (11.5-14.5); White Blood Count 4.2 K/mm3 (4.5-10.0)
[2022-06-27 06:29] LABS: Alanine Aminotransferase 24 U/L (6-50); Albumin Level 2.8 g/dL (3.5-5.1); Alkaline Phosphatase 75 U/L (38-126); Anion Gap 12 mmol/L (8-16); Aspartate Amino Transferase 26 U/L (17-59); Bilirubin,Total 1.1 mg/dL (0.2-1.3); Blood Urea Nitrogen 37 mg/dL (9-20); Calcium 7.7 mg/dL (8.4-10.2); Carbon Dioxide 25 mmol/L (22-30); Chloride 91 mmol/L (98-107); Estimated CRCL calculation 22 ml/min; Estimated Glomerular Filt Rate 25; Glucose 98 mg/dL (65-110); Magnesium 1.6 mg/dL (1.6-2.3); Potassium 3.2 mmol/L (3.4-5.0); Sodium 128 mmol/L (137-145)
[2022-06-27] MEDS: SODIUM CHLORIDE 1 GM TABLET PO ×2 (10:10→17:10)
[2022-06-27] MEDS: MAGNESIUM OXIDE 200 MG TABLET PO (10:10)
[2022-06-27] MEDS: MIDODRINE HCL 2.5 MG TABLET PO ×3 (10:11→17:10)
[2022-06-27] MEDS: SOTALOL HCL 80 MG TABLET PO (10:11)
[2022-06-27] MEDS: CALCIUM CARBONATE (OSCAL) 500 MG TABLET PO (10:11)
[2022-06-27] MEDS: metOLazone 5 MG TABLET PO (10:11)
[2022-06-27] MEDS: guaiFENesin 600 MG/DEXTROMETHORPHAN 30 MG SR TAB 12 HR 1 TAB PO ×2 (10:11→21:15)
[2022-06-27] MEDS: FLUTICASONE PROPIONATE 0.05% NA SPR 16 GM BTL (*BKC) 2 SPRAY NASAL (10:13)
[2022-06-27] MEDS: PANTOPRAZOLE SOD SESQUIHYDRATE 20 MG TAB PO (10:13)
[2022-06-27] MEDS: SOLIFENACIN 5 MG TABLET 10 MG PO (10:13)
[2022-06-27] MEDS: BUMETANIDE INJ 1 MG/4 ML VIAL 2 MG IV PUSH ×2 (10:16→17:03)
--- NOTE | 2022-06-27 10:41 | PM.PNNEP ---
Progress Note: A&P Assessment and Plan (1) ZORAN (acute kidney injury): Code(s): N17.9 - Acute kidney failure, unspecified Status: Acute Assessment and Plan: the patient has acute kidney injury. He has normal creatinine at baseline. His renal ultrasound is unremarkable. UA shows some blood and a few white cells. Urine electrolytes are pre renal CK is normal complements are low. possibilities for etiology include former sepsis, C diff colitis, pre renal azotemia due to low albumin, possible reaction to vancomycin . he is off the vancomycin. I suspect that the low complements are due to protein malnutrition as Dr. Birmingham suggested. Allergic interstitial nephritis is possible. His creatinine is about the same. he made more urine last night. Will continue diuretics. (2) Septic shock: Code(s): A41.9 - Sepsis, unspecified organism; R65.21 - Severe sepsis with septic shock Status: Acute Assessment and Plan: The patient is on antibiotic for the MRSA. (3) C. difficile colitis: Code(s): A04.72 - Enterocolitis due to Clostridium difficile, not specified as recurrent Status: Acute Assessment and Plan: The patient is on Dificid. Things seem to be settling down. Eating pretty well. Stools are more formed he says (4) Edema of both upper arms: Code(s): R60.0 - Localized edema Status: Acute Assessment and Plan: The patient has swelling in the arms and in the legs. Arm edema may be because his arms or dependent.Possibly this is due to the low albumin. Albumin level is better. (5) Atrial fibrillation with RVR: Code(s): I48.91 - Unspecified atrial fibrillation Status: Acute Assessment and Plan: the patient is in sinus rhythm and anticoagulated. His Eliquis is on hold right now because of the possibility of a catheter. (6) Acute on chronic anemia: Code(s): D64.9 - Anemia, unspecified Status: Acute Assessment and Plan: hemoglobin stable at 9.8. (7) Mixed hyperlipidemia: Code(s): E78.2 - Mixed hyperlipidemia Status: Acute Assessment and Plan: He is on atorvastatin at home (8) Hypothyroidism, unspecified: Code(s): E03.9 - Hypothyroidism, unspecified Status: Acute Assessment and Plan: getting supplements (9) Essential hypertension: Code(s): I10 - Essential (primary) hypertension Status: Acute Assessment and Plan: blood pressure is between 100 and 110. (10) Shortness of breath: Code(s): R06.02 - Shortness of breath Status: Acute Assessment and Plan: the patient is short of breath today But better. Will add metolazone. Reassess tomorrow to see if he needs dialysis (11) Hyponatremia: Code(s): E87.1 - Hypo-osmolality and hyponatremia Status: Acute Assessment and Plan: sodium was low at 121 yesterday and has increased to 124 today. Cortisol level is low. Cortrosyn stim resulted in a cortisol level 31. TSH is normal. Most likely this is due to the renal insufficiency and pre renal factors. Although he has had some mild hyponatremia in the past. CT of the head and chest x-ray are negative. No history of cancer. Pantoprazole as the only medicine that might cause hyponatremia. Consider changing to Pepcid? Sodium level improved at 128 Plan .. Subjective Date/time seen: 06/27/22 10:41 Interval history: The patient feels significantly better today. Lying flat in bed and not short of breath. Appetite is okay. Exam Narrative: WDWN in NAD skin no rash or subcu nodules head ncat lungs More clear cor reg no rub or gallop abd BS+ nontender and soft ext One bilateral edema. Objective Data Vital Signs Vital Signs: Vital Signs - 24 hr 06/26/22 14:00 06/26/22 12:00 06/26/22 16:00 Temperature 36
--- NOTE | 2022-06-27 11:39 | PM.IMPN ---
Progress Note: A&P Assessment and Plan (1) Anemia: Code(s): D64.9 - Anemia, unspecified Status: Acute Assessment and Plan: Hemoglobin dropped to 6.7 on 06/25. Iron studies noted and low TIBC related to protein loss. Transfused 2U. Hgb back up to 9 range. He feels better. Follow HH. Stool guaiac positive but with hemorrhoids. Tucks, Anusol. GI consulted but no plans for scopes. Eliquis resumed at renal dosing. (2) Chest pain: Code(s): R07.9 - Chest pain, unspecified Status: Acute Assessment and Plan: Patient woke up with chest pain 06/25. EKG performed showing no acute findings. Prolonged QT at 483 possibly related to the sotalol. Troponins were elevated but trending down. CXR showing extensive bilateral disease. Patient transfused. Suspect symptoms related to the anemia. Cards made aware. Follow. (3) Edema of both upper arms: Code(s): R60.0 - Localized edema Status: Acute Assessment and Plan: Arm edema noted and doppler negative for UE DVT. Doubt SVT syndrome. Albumin dropped to 2.1 with worsening renal function and worsening hyponatremia. Suspect patient is 3rd spacing fluid given the diffuse edema. 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 C3/C4 low as well consistent with protein loss. There is no protein in his urine. Currently on scheduled diuretics. Nephrology consulted and appreciate their input. (4) ZORAN (acute kidney injury): Code(s): N17.9 - Acute kidney failure, unspecified Status: Acute Assessment and Plan: Cr 1.6 on admission but normalized to 0.8. Cr back up today to 2.5. Sodium was low at 121 and Urine studies more consistent with pre-renal but patient eating well. Urine eos negative. Renal US showing bilateral simple cysts but no acute issues. EF 60-65%. UA noted. Suspect intravascular dry with 3rd spacing. UOP 1650 yesterday. Nephrology consulted and appreciate their input. (5) CHF (congestive heart failure): Code(s): I50.9 - Heart failure, unspecified Status: Acute Assessment and Plan: CXR showing extensive bilateral disease. Diffusely edematous. Appears to be 3rd spacing fluids. Probably a component of acute diastolic CHF exacerbation. As above. (6) Septic shock: Code(s): A41.9 - Sepsis, unspecified organism; R65.21 - Severe sepsis with septic shock Status: Acute Assessment and Plan: Patient here for septic shock with septicemia; positive blood cultures for MRSA. BCx 06/13 2of2 positive for MRSA and 1of2 on 06/15. BCx 06/17 remaining negative. No IE by YOLIS. Was on IV vancomycin (started 06/15 1240). No clear focus of infection. Discussed with PharmD ID. Remove central line and culture tip - if negative, then continue Daptomycin for 2 weeks from 06/17. If not then 2 weeks from central line removal (06/26). (7) Bacteremia: Code(s): R78.81 - Bacteremia Status: Acute Assessment and Plan: As above. BCx positive for MRSA. Repeat BCx 06/17 remaining negative. Patient is improving clinically. No evidence of IE by YOLIS. Plan for 2 weeks of IV therapy starting at last negative BCx (06/17) if cath tip negative. (8) Hematuria: Code(s): R31.9 - Hematuria, unspecified Status: Acute Assessment and Plan: Patient was having gross hematuria a few days after the [place] was removed. [place] has been out for over 1 week. Related to meatal injury and not heamturia per se. Renal US as above. Bleeding stopped. Hgb was low but not felt realted to the hematuria. Monitor penile bleeding. (9) C. difficile colitis: Code(s): A04.72 - Enterocolitis due to Clostridium difficile, not specified as recurrent Status: Acute Assessment and Plan: Patient developed diarrhea. Positive C diff on 06/14. Completed 10 days of oral Dificid. Enterocort was stopped. Symptoms unchanged. Continue oral Vanco for now to complete 10 days. (10)
--- NOTE | 2022-06-27 11:42 | PM.PNCARD ---
Progress Note: A&P Assessment and Plan (1) Chest pain: Code(s): R07.9 - Chest pain, unspecified Status: Acute Assessment and Plan: Had an episode of chest pain on 06/25. Still intermittent; pt thinks if feels musculoskeletal. Thought due to Hgb drop down to 6.7, but that has been corrected. Troponins were mildly elevated up to 0.071 and then downtrended. ECG without ischemic changes. Cardiac cath 2013 prior to valve surgery did not show any CAD. Would monitor for now. (2) Atrial fibrillation with RVR: Code(s): I48.91 - Unspecified atrial fibrillation Status: Acute Assessment and Plan: New onset AFib/flutter RVR due to sepsis and physiologic stress. Anticoagulated with Eliquis, resumed 06/27/2022 due to his recent cardioversion and risk of cardioembolic events. Remains in sinus rhythm since his YOLIS-guided DCCV. EKG 06/25/2022 showed a significant first-degree AV block as well as QT prolongation Reduce sotalol to: 40 mg daily, due to his acute kidney injury, but hold tmr pending EKG (3) Bacteremia: Code(s): R78.81 - Bacteremia Status: Acute Assessment and Plan: Has methicillin-resistant Staph bacteremia And sepsis. YOLIS negative for vegetations. (4) S/P aortic valve replacement with bioprosthetic valve: Code(s): Z95.3 - Presence of xenogenic heart valve Status: Acute Assessment and Plan: With a bacteremia there was concern for endocarditis. Echo not suggestive of endocarditis YOLIS negative for vegetations. (5) Hypotension: Code(s): I95.9 - Hypotension, unspecified Status: Acute Assessment and Plan: Blood pressure doing much better today. If remains this could, will discontinue midodrine (6) Acute on chronic anemia: Code(s): D64.9 - Anemia, unspecified Status: Acute Assessment and Plan: Guaiac positive + some [place] trauma. Received 2 units of packed cells this admission H&H stable; Eliquis resumed. Subjective Date/time seen: 06/27/22 11:42 Interval history: Reason for visit: Chest pain. History of new onset AFib RVR this admission, status post YOLIS guided cardioversion 06/20/2022. Bacteremic on admission, YOLIS did not show any evidence of endocarditis. History of bioprosthetic aortic valve replacement. 06/26/2022: Cardiology re-consulted for episode of chest pain that occurred yesterday. Patient's Hgb had dropped down to 6.7, fecal occult test was positive. Troponins were checked with initial 0.071 --> 0.061 --> 0.047. GI consulted given Hgb drop. Patient this morning states he feels okay. Has no chest pain. Denies shortness of breath. Date of service 06/27/2022: Still with a substernal ache And pressure at times, mild, no aggravating or relieving factors. Was up in his chair for a while. Patient received 2 units of packed cells 06/24/2022, with Bumex after the 1st unit. Edematous due to 3rd spacing, diuresing with Bumex 2 mg IV push b.i.d. and metolazone 5 mg q.a.m. Was 1 L negative yesterday. However creatinine continues to climb, now 2.5. Telemetry shows patient maintains sinus rhythm. EKG from 06/25/2022 showed sinus rhythm with a prolonged first-degree AV block. QTC was 493 milliseconds , borderline prolonged. Personally reviewed. Review of Systems Review of Systems: No shortness of breath. Substernal ache , intermittent, as described above, nonpleuritic, nonpositional. Diarrhea persists but has improved, with bowel movements becoming more firm. Dizzy when he 1st got up. Eating okay. Exam Narrative: older male in bed, no distress. and daughter at bedside. Const: General: cooperative, healthy appearing and comfortable; No confusion Orientation/consciousness: oriented to person, patient oriented x3 and No confusion HENMT: Mouth: Yes moist mucous membranes Eyes: EOM: EOMs intact bilaterally Neck: Neck: supple and no
--- NOTE | 2022-06-27 13:08 | WPDGIPROGNO ---
Progress Note: A&P Assessment and Plan (1) Occult blood in stools: Code(s): R19.5 - Other fecal abnormalities Status: Acute Assessment and Plan: no overt gib and h/h stable after blood transfusion occult blood could be from c diff colitis he had colonoscopy last year, no need to repeat unless signs of obvious bleeding (2) C. difficile colitis: Code(s): A04.72 - Enterocolitis due to Clostridium difficile, not specified as recurrent Status: Acute Assessment and Plan: on treatment and feeling better (3) Acute on chronic anemia: Code(s): D64.9 - Anemia, unspecified Status: Acute Assessment and Plan: h/h stable couple of days multifactorial (4) Hematuria: Code(s): R31.9 - Hematuria, unspecified Status: Acute Assessment and Plan: resolved (5) S/P aortic valve replacement with bioprosthetic valve: Code(s): Z95.3 - Presence of xenogenic heart valve Status: Acute (6) Bacteremia: Code(s): R78.81 - Bacteremia Status: Acute Assessment and Plan: on iv abx, no endocarditis Subjective Date/time seen: 06/27/22 13:08 Interval history: less diarrhea, overall better, no report of bleeding Review of Systems Review of Systems: All systems reviewed & are unremarkable except as noted in HPI and below Exam Narrative: older male in bed, no distress. and daughter at bedside. Const: General: cooperative, healthy appearing and comfortable; No confusion Orientation/consciousness: oriented to person, patient oriented x3 and No confusion HENMT: Mouth: Yes moist mucous membranes Eyes: EOM: EOMs intact bilaterally Neck: Neck: supple and no JVD Resp: Effort & Inspection: normal respiratory effort Auscultation: clear to auscultation bilaterally Cardio: Rate: regular rate Rhythm: regular rhythm GI: Inspection: normal to inspection GI Palp: No abdominal tenderness Skin: General skin exam: normal color and no rashes or lesions noted Neuro: General: oriented to person, patient oriented x3 and No confusion Extrem: Right lower extremity: edema Left lower extremity: edema Other: Moderate lower extremity edema, mild to moderate upper extremity edema Psych: Appearance: grossly normal Mental Status: mental status grossly normal Objective Data Vital Signs Vital Signs: Vital Signs - 24 hr 06/26/22 14:00 06/26/22 16:00 06/26/22 20:17 Temperature 97.0 F L Pulse Rate 59 L 59 L 66 Respiratory Rate 16 Blood Pressure 114/55 L Pulse Oximetry 94 Oxygen Delivery 06/26/22 22:00 06/26/22 20:10 06/26/22 20:00 Temperature 97.2 F L Pulse Rate 65 63 Respiratory Rate 18 Blood Pressure 133/70 Pulse Oximetry 95 Oxygen Delivery Room Air 06/27/22 00:00 06/27/22 04:00 06/27/22 05:38 Temperature 97.3 F L Pulse Rate 63 62 63 Respiratory Rate 18 Blood Pressure 133/60 Pulse Oximetry 94 Oxygen Delivery 06/27/22 10:11 Temperature Pulse Rate 68 Respiratory Rate Blood Pressure Pulse Oximetry Oxygen Delivery Intake/Output Intake/Output: Intake & Output 06/24/22 06/25/22 06/26/22 06/27/22 23:59 23:59 23:59 23:59 Intake Total 1730 2802 620 380 Output Total 1600 1300 1650 400 Balance 130 1502 -1030 -20 Meds/Results Medications: Active Medications Generic Name Dose Route Start Last Admin Trade Name Freq PRN Reason Stop Dose Admin Acetaminophen 650 mg 06/14/22 08:01 06/21/22 09:48 Acetaminophen 325 Mg Tablet PO 650 mg Q4H PRN Administration Mild Pain (1-3) or Fever Albuterol 1 puff 06/14/22 00:07 Albuterol Sulfate (*Sp) Aerosol 1 Puff INHALATION QID PRN Shortness Of Breath Apixaban 2.5 mg 06/27/22 11:45 Apixaban 2.5 Mg Tablet PO Q12HR [facility] Atorvastatin Calcium 10 mg 06/14/22 00:30 06/26/22 20:17 Atorvastatin 10 Mg Tablet PO 10 mg HS NEHA Administration Budesonide 6 mg 06/14/22 00:07 05/28
[2022-06-27] MEDS: HYDROCORTISONE ACETATE 25 MG SUPPOSITORY RECTAL ×2 (13:19→21:15)
[2022-06-27] MEDS: APIXABAN 2.5 MG TABLET PO ×2 (13:19→21:15)
--- NOTE | 2022-06-27 15:14 | PCOTNOTE ---
OT session not completed this date. Will continue per plan of care.
[2022-06-27] MEDS: TAMSULOSIN HCL 0.4 MG CAPSULE PO (21:15)
[2022-06-27] MEDS: ATORVASTATIN 10 MG TABLET PO (21:15)
[2022-06-28] MEDS: VANCOMYCIN ORAL 125 MG/2.5 ML SYRUP PO ×4 (01:57→17:04)
[2022-06-28 06:00] VITALS: BP 125/63; PULSE 63; RESP 18; TEMP 36.4; O2SAT 95
[2022-06-28] MEDS: LEVOTHYROXINE SODIUM 50 MCG TABLET PO (06:11)
[2022-06-28 07:39] LABS: Basophils Absolute Auto 0.1 K/mm3 (0.0-0.1); Basophils Percent Auto 1.3 % (0.2-1.2); Eosinophils Absolute Auto 0.1 K/mm3 (0-0.3); Eosinophils Percent Auto 2.6 % (0-4.4); Hematocrit 26.9 % (42.0-52.0); Hemoglobin 9.1 g/dL (14.0-18.0); Immature Granulocyte Absolute 0.04 K/mm3 (0.00-0.031); Immature Platelet Fraction Pct 3.4 % (0.9-11.2); Lymphocytes Absolute Auto 0.76 K/mm3 (0.9-3.2); Lymphocytes Percent Auto 19.8 % (18.3-44.2); Mean Corpuscular HGB Conc 33.8 g/dl (32-36); Mean Corpuscular Hemoglobin 34.2 pg (26-34); Mean Corpuscular Volume 101.1 fl (80-100); Mean Platelet Volume 9.7 fl (7.4-10.4); Monocytes Absolute Auto 0.4 K/mm3 (0.1-0.6); Monocytes Percent Auto 9.9 % (2.6-8.5); Neutrophils Absolute Auto 2.5 K/mm3 (1.3-6.7); Neutrophils Percent Auto 65.4 % (45.5-73.1); Platelet Count Result 103 k/mm3 (150-375); Red Blood Count 2.66 M/mm3 (4.6-6.20); Red Cell Distribution Width 16.6 % (11.5-14.5); White Blood Count 3.8 K/mm3 (4.5-10.0)
[2022-06-28 07:41] LABS: Alanine Aminotransferase 22 U/L (6-50); Albumin Level 2.7 g/dL (3.5-5.1); Alkaline Phosphatase 75 U/L (38-126); Anion Gap 10 mmol/L (8-16); Aspartate Amino Transferase 24 U/L (17-59); Blood Urea Nitrogen 40 mg/dL (9-20); Calcium 7.6 mg/dL (8.4-10.2); Carbon Dioxide 28 mmol/L (22-30); Chloride 91 mmol/L (98-107); Estimated CRCL calculation 21 ml/min; Estimated Glomerular Filt Rate 23; Glucose 94 mg/dL (65-110); Magnesium 1.6 mg/dL (1.6-2.3); Phosphorus 5.1 mg/dL (2.5-4.5); Sodium 129 mmol/L (137-145)
--- NOTE | 2022-06-28 08:00 | ECG_ITS ---
Measurements Intervals [place] Rate: 60 P: -54 MD: 311 QRS: -21 QRSD: 118 T: 16 QT: 493 QTc: 494 Interpretive Statements SINUS RHYTHM WITH FIRST DEGREE AV BLOCK INTRAVENTRICULAR CONDUCTION DELAY PROLONGED QT INTERVAL COMPARED TO ECG 06/25/2022 10:04:00 NO SIGNIFICANT CHANGES Electronically Signed On 06-28-2022 11:44:32 CDT by El Toth D.O.
[2022-06-28] MEDS: HYDROCORTISONE ACETATE 25 MG SUPPOSITORY RECTAL ×2 (08:40→20:49)
[2022-06-28] MEDS: MAGNESIUM OXIDE 200 MG TABLET PO (08:40)
[2022-06-28] MEDS: guaiFENesin 600 MG/DEXTROMETHORPHAN 30 MG SR TAB 12 HR 1 TAB PO ×2 (08:40→20:49)
[2022-06-28] MEDS: SOLIFENACIN 5 MG TABLET 10 MG PO (08:40)
[2022-06-28] MEDS: MIDODRINE HCL 2.5 MG TABLET PO ×3 (08:40→17:05)
[2022-06-28] MEDS: SODIUM CHLORIDE 1 GM TABLET PO ×2 (08:40→17:05)
[2022-06-28] MEDS: PANTOPRAZOLE SOD SESQUIHYDRATE 20 MG TAB PO (08:40)
[2022-06-28] MEDS: CALCIUM CARBONATE (OSCAL) 500 MG TABLET PO (08:40)
[2022-06-28] MEDS: BUMETANIDE INJ 1 MG/4 ML VIAL 2 MG IV PUSH ×2 (08:41→17:04)
[2022-06-28] MEDS: APIXABAN 2.5 MG TABLET PO ×2 (08:41→20:49)
[2022-06-28] MEDS: metOLazone 5 MG TABLET PO (08:41)
[2022-06-28] MEDS: DAPTOmycin 750 MG in SODIUM CHLORIDE 0.9% IV 50 ML 100 MG IVPB (08:41)
[2022-06-28 14:00] VITALS: BP 128/67; PULSE 75; RESP 14; TEMP 36.7; O2SAT 100
--- NOTE | 2022-06-28 17:58 | PM.IMPN ---
Progress Note: A&P Assessment and Plan (1) Anemia: Code(s): D64.9 - Anemia, unspecified Status: Acute (2) Chest pain: Code(s): R07.9 - Chest pain, unspecified Status: Acute (3) Edema of both upper arms: Code(s): R60.0 - Localized edema Status: Acute (4) ZORAN (acute kidney injury): Code(s): N17.9 - Acute kidney failure, unspecified Status: Acute (5) CHF (congestive heart failure): Code(s): I50.9 - Heart failure, unspecified Status: Acute (6) Septic shock: Code(s): A41.9 - Sepsis, unspecified organism; R65.21 - Severe sepsis with septic shock Status: Acute (7) Bacteremia: Code(s): R78.81 - Bacteremia Status: Acute (8) Hematuria: Code(s): R31.9 - Hematuria, unspecified Status: Acute (9) C. difficile colitis: Code(s): A04.72 - Enterocolitis due to Clostridium difficile, not specified as recurrent Status: Acute (10) Atrial fibrillation with RVR: Code(s): I48.91 - Unspecified atrial fibrillation Status: Acute (11) Elevated d-dimer: Code(s): R79.89 - Other specified abnormal findings of blood chemistry Status: Acute (12) Thrombocytopenia: Code(s): D69.6 - Thrombocytopenia, unspecified Status: Acute (13) Hypothyroidism, unspecified: Code(s): E03.9 - Hypothyroidism, unspecified Status: Acute (14) BPH without obstruction/lower urinary tract symptoms: Code(s): N40.0 - Benign prostatic hyperplasia without lower urinary tract symptoms Status: Acute (15) Acute UTI: Code(s): N39.0 - Urinary tract infection, site not specified Status: Acute Plan 06/27/22 Hemoglobin dropped to 6.7 on 06/25. Iron studies noted and low TIBC related to protein loss. Transfused 2U. Hgb back up to 9 range. He feels better. Follow HH. Stool guaiac positive but with hemorrhoids. Tucks, Anusol. GI consulted but no plans for scopes. Eliquis resumed at renal dosing. Patient woke up with chest pain 06/25.? EKG performed showing no acute findings.? Prolonged QT at 483 possibly related to the sotalol.? Troponins were elevated but trending down.? CXR showing extensive bilateral disease. Patient transfused. Suspect symptoms related to the anemia. Cards made aware. Arm edema noted and doppler negative for UE DVT. Doubt SVT syndrome. Albumin dropped to 2.1 with worsening renal function and worsening hyponatremia. Suspect patient is 3rd spacing fluid given the diffuse edema. 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 C3/C4 low as well consistent with protein loss. There is no protein in his urine. Currently on scheduled diuretics. Nephrology consulted and appreciate their input. Cr 1.6 on admission but normalized to 0.8. Cr back up today to 2.5. Sodium was low at 121 and Urine studies more consistent with pre-renal but patient eating well. Urine eos negative. Renal US showing bilateral simple cysts but no acute issues.? EF 60-65%. UA noted. Suspect intravascular dry with 3rd spacing. UOP 1650 yesterday. Nephrology consulted and appreciate their input.? CXR showing extensive bilateral disease. Diffusely edematous. Appears to be 3rd spacing fluids. Probably a component of acute diastolic CHF exacerbation. As above. Patient here for septic shock with septicemia; positive blood cultures for MRSA. BCx 06/13 2of2 positive for MRSA and 1of2 on 06/15. BCx 06/17 remaining negative. No IE by YOLIS. Was on IV vancomycin (started 06/15 1240). No clear focus of infection. Discussed with PharmD ID. Remove central line and culture tip - if negative, then continue Daptomycin for 2 weeks from 06/17. If not then 2 weeks from central line removal (06/26). As above. BCx positive for MRSA. Repeat BCx 06/17 remaining negative. Patient is improving clinically. No evidence of IE by YOLIS. Plan for 2 weeks of IV therapy starting at last negative BCx (06/17) if cath tip negative. Patient was having gross hem
--- NOTE | 2022-06-28 18:21 | PM.PNCARD ---
Progress Note: A&P Assessment and Plan (1) Chest pain: Code(s): R07.9 - Chest pain, unspecified Status: Acute Assessment and Plan: Had an episode of chest pain on 06/25. Intermittent; pt thinks if feels musculoskeletal. Thought due to Hgb drop down to 6.7, but that has been corrected. Troponins were mildly elevated up to 0.071 and then downtrended. ECG without ischemic changes. Cardiac cath 2013 prior to valve surgery did not show any CAD. Would monitor for now. (2) Atrial fibrillation with RVR: Code(s): I48.91 - Unspecified atrial fibrillation Status: Acute Assessment and Plan: New onset AFib/flutter RVR due to sepsis and physiologic stress. Anticoagulated with Eliquis, resumed 06/27/2022 due to his recent cardioversion and risk of cardioembolic events. Remains in sinus rhythm since his YOLIS-guided DCCV. EKG today 06/28/2022 shows sinus rhythm rate 60, still a long first-degree AV block, and a prolonged QT interval with a QTC of 494 milliseconds. Personally reviewed. Sotalol is renally excreted, and it was held today. Will discontinue it for now. Since the AFib may have been provoked by his acute illness, perhaps it will not recur. (3) Bacteremia: Code(s): R78.81 - Bacteremia Status: Acute Assessment and Plan: Has methicillin-resistant Staph bacteremia And sepsis. YOLIS negative for vegetations. (4) S/P aortic valve replacement with bioprosthetic valve: Code(s): Z95.3 - Presence of xenogenic heart valve Status: Acute Assessment and Plan: With a bacteremia there was concern for endocarditis. Echo not suggestive of endocarditis YOLIS negative for vegetations. (5) Hypotension: Code(s): I95.9 - Hypotension, unspecified Status: Acute Assessment and Plan: Blood pressure doing much better the last few days. Will discontinue midodrine (6) Acute on chronic anemia: Code(s): D64.9 - Anemia, unspecified Status: Acute Assessment and Plan: Guaiac positive + some [place] trauma. Received 2 units of packed cells this admission H&H stable; Eliquis resumed. Subjective Date/time seen: 06/28/22 18:21 Interval history: Reason for visit: Chest pain. History of new onset AFib RVR this admission, status post YOLIS guided cardioversion 06/20/2022. Bacteremic on admission, YOLIS did not show any evidence of endocarditis. History of bioprosthetic aortic valve replacement. Getting diuresed for edema. 06/26/2022: Cardiology re-consulted for episode of chest pain that occurred yesterday. Patient's Hgb had dropped down to 6.7, fecal occult test was positive. Troponins were checked with initial 0.071 --> 0.061 --> 0.047. GI consulted given Hgb drop. Patient this morning states he feels okay. Has no chest pain. Denies shortness of breath. 06/27/2022: Still with a substernal ache and pressure at times, mild, no aggravating or relieving factors. Was up in his chair for a while. Patient received 2 units of packed cells 06/24/2022, with Bumex after the 1st unit. Edematous due to 3rd spacing, diuresing with Bumex 2 mg IV push b.i.d. and metolazone 5 mg q.a.m. Was 1 L negative yesterday. However creatinine continues to climb, now 2.5. Sotalol to be held 06/28/2022 then reduced to 40 mg daily due to first-degree AV block and QT prolongation. 06/28/2022: Did not diurese much yesterday by numbers but patient says he is urinating a lot and has less edema.. Creatinine up 2.7. Hematocrit basically stable. Sotalol was held today. Review of Systems Review of Systems: chest pain is not bothering the patient today. No shortness of breath, diarrhea persists, some mild abdominal pain, appetite is fair. Neurologic: Denies confusion Psychiatric: Psychiatric: Denies confusion Exam Narrative: older male in bed, no distress. and daughter at bedside. Const: General: erik
--- NOTE | 2022-06-28 18:29 | ECG_ITS ---
Measurements Intervals [place] Rate: 70 P: -42 [place]: 304 QRS: -17 QRSD: 116 T: 30 QT: 476 QTc: 515 Interpretive Statements SINUS RHYTHM WITH FIRST DEGREE AV BLOCK INTRAVENTRICULAR CONDUCTION DELAY BASELINE ARTIFACT- I, II, III, AVR ABNORMAL ECG COMPARED TO ECG 06/28/2022 11:00:37 NO SIGNIFICANT CHANGES Electronically Signed On 06-28-2022 20:25:26 CDT by El Toth D.O.
--- NOTE | 2022-06-28 19:03 | PM.PNNEP ---
Progress Note: A&P Assessment and Plan (1) ZORAN (acute kidney injury): Code(s): N17.9 - Acute kidney failure, unspecified Status: Acute Assessment and Plan: the patient has acute kidney injury. He has normal creatinine at baseline. His renal ultrasound is unremarkable. UA shows some blood and a few white cells. Urine electrolytes are pre renal CK is normal complements are low. possibilities for etiology include former sepsis, C diff colitis, pre renal azotemia due to low albumin, possible reaction to vancomycin . he is off the ntravenous vancomycin. he is still on oral vancomycin however. This does not get absorbed and so should not have a direct toxic reaction, however if this is an allergy to vancomycin then it would be best just stop this and add Dificid. I reached out to Dr. Casas I suspect that the low complements are due to protein malnutrition as Dr. [place] suggested. Allergic interstitial nephritis is possible. his creatinine is a little worse. Not a whole lot of urine production. Perhaps he is dry. Will decrease the diuretics. (2) Septic shock: Code(s): A41.9 - Sepsis, unspecified organism; R65.21 - Severe sepsis with septic shock Status: Acute Assessment and Plan: The patient is on antibiotic for the MRSA. (3) C. difficile colitis: Code(s): A04.72 - Enterocolitis due to Clostridium difficile, not specified as recurrent Status: Acute Assessment and Plan: The patient is on Vanco orally. Things seem to be settling down. Eating pretty well. Stools are less liquid. (4) Edema of both upper arms: Code(s): R60.0 - Localized edema Status: Acute Assessment and Plan: The patient has swelling in the arms and in the legs. Arm edema may be because his arms or dependent.Possibly this is due to the low albumin. Albumin level is better. (5) Atrial fibrillation with RVR: Code(s): I48.91 - Unspecified atrial fibrillation Status: Acute Assessment and Plan: the patient is in sinus rhythm and anticoagulated. His Eliquis was restarted yesterday. (6) Acute on chronic anemia: Code(s): D64.9 - Anemia, unspecified Status: Acute Assessment and Plan: hemoglobin dropped to 9.1. will start epo. (7) Mixed hyperlipidemia: Code(s): E78.2 - Mixed hyperlipidemia Status: Acute Assessment and Plan: He is on atorvastatin at home (8) Hypothyroidism, unspecified: Code(s): E03.9 - Hypothyroidism, unspecified Status: Acute Assessment and Plan: getting supplements (9) Essential hypertension: Code(s): I10 - Essential (primary) hypertension Status: Acute Assessment and Plan: blood pressure is between 100 and 110. (10) Shortness of breath: Code(s): R06.02 - Shortness of breath Status: Acute Assessment and Plan: the patient is no longer sob. cut back on diuretics. (11) Hyponatremia: Code(s): E87.1 - Hypo-osmolality and hyponatremia Status: Acute Assessment and Plan: sodium was low and is gradually better. Cortisol level is low. Cortrosyn stim resulted in a cortisol level 31. TSH is normal. Most likely this is due to the renal insufficiency and pre renal factors. Although he has had some mild hyponatremia in the past. CT of the head and chest x-ray are negative. No history of cancer. Pantoprazole as the only medicine that might cause hyponatremia. Consider changing to Pepcid? Sodium level improved at 129 Plan .. Subjective Date/time seen: 06/28/22 19:03 Interval history: Naga feels pretty good today. He is not short of breath. He is having 2 bowel movements per day, both soupy in texture, pure liquid like they were before. No belly pain. Exam Narrative: WDWN in NAD skin no rash or subcu nodules he
[2022-06-28 20:11] LABS: Haptoglobin 119 mg/dL (43-212)
[2022-06-28] MEDS: TAMSULOSIN HCL 0.4 MG CAPSULE PO (20:49)
[2022-06-28] MEDS: ATORVASTATIN 10 MG TABLET PO (20:49)
[2022-06-28] MEDS: POTASSIUM CHLORIDE INJ 40 MEQ in SODIUM CHLORIDE 0.9% IV 500 ML 130 MEQ IVPB (20:50)
[2022-06-28] MEDS: FIDAXOMICIN 200 MG TABLET PO (20:58)
[2022-06-28 22:00] VITALS: BP 113/66; PULSE 67; RESP 18; TEMP 36.6; O2SAT 95
[2022-06-29] MEDS: LEVOTHYROXINE SODIUM 50 MCG TABLET PO (05:43)
[2022-06-29 06:00] VITALS: BP 141/70; PULSE 76; RESP 20; TEMP 36.3; O2SAT 95
[2022-06-29 07:14] LABS: Basophils Absolute Auto 0.1 K/mm3 (0.0-0.1); Basophils Percent Auto 1.4 % (0.2-1.2); Eosinophils Absolute Auto 0.1 K/mm3 (0-0.3); Eosinophils Percent Auto 2.7 % (0-4.4); Hematocrit 26.8 % (42.0-52.0); Hemoglobin 9.1 g/dL (14.0-18.0); Immature Granulocyte Absolute 0.02 K/mm3 (0.00-0.031); Immature Granulocyte Percent A 0.5 % (0-0.5); Immature Platelet Fraction Pct 2.8 % (0.9-11.2); Lymphocytes Absolute Auto 0.61 K/mm3 (0.9-3.2); Lymphocytes Percent Auto 16.5 % (18.3-44.2); Mean Corpuscular Hemoglobin 34.9 pg (26-34); Mean Corpuscular Volume 102.7 fl (80-100); Mean Platelet Volume 10.1 fl (7.4-10.4); Monocytes Absolute Auto 0.4 K/mm3 (0.1-0.6); Monocytes Percent Auto 11.9 % (2.6-8.5); Neutrophils Absolute Auto 2.5 K/mm3 (1.3-6.7); Platelet Count Result 88 k/mm3 (150-375); Red Blood Count 2.61 M/mm3 (4.6-6.20); Red Cell Distribution Width 16.3 % (11.5-14.5); White Blood Count 3.7 K/mm3 (4.5-10.0)
[2022-06-29 07:23] LABS: Alanine Aminotransferase 21 U/L (6-50); Albumin Level 2.8 g/dL (3.5-5.1); Alkaline Phosphatase 84 U/L (38-126); Anion Gap 7 mmol/L (8-16); Aspartate Amino Transferase 24 U/L (17-59); Bilirubin,Total 1.1 mg/dL (0.2-1.3); Blood Urea Nitrogen 41 mg/dL (9-20); Calcium 7.6 mg/dL (8.4-10.2); Carbon Dioxide 28 mmol/L (22-30); Chloride 94 mmol/L (98-107); Estimated CRCL calculation 20 ml/min; Estimated Glomerular Filt Rate 23; Glucose 93 mg/dL (65-110); Magnesium 1.6 mg/dL (1.6-2.3); Phosphorus 4.1 mg/dL (2.5-4.5); Potassium 3.3 mmol/L (3.4-5.0); Sodium 129 mmol/L (137-145)
[2022-06-29 08:00] VITALS: PULSE 76; RESP 20; O2SAT 95
[2022-06-29] MEDS: PANTOPRAZOLE SOD SESQUIHYDRATE 20 MG TAB PO (10:03)
[2022-06-29] MEDS: MAGNESIUM OXIDE 200 MG TABLET PO (10:03)
[2022-06-29] MEDS: guaiFENesin 600 MG/DEXTROMETHORPHAN 30 MG SR TAB 12 HR 1 TAB PO ×2 (10:03→20:42)
--- NOTE | 2022-06-29 10:03 | PM.PNCARD ---
Progress Note: A&P Assessment and Plan (1) Chest pain: Code(s): R07.9 - Chest pain, unspecified Status: Acute Assessment and Plan: Had an episode of chest pain on 06/25. Intermittent; pt thinks if feels musculoskeletal. Thought due to Hgb drop down to 6.7, but that has been corrected. Troponins were mildly elevated up to 0.071 and then downtrended. ECG without ischemic changes. Cardiac cath 2013 prior to valve surgery did not show any CAD. Would monitor for now. (2) Atrial fibrillation with RVR: Code(s): I48.91 - Unspecified atrial fibrillation Status: Acute Assessment and Plan: New onset AFib/flutter RVR due to sepsis and physiologic stress. Anticoagulated with Eliquis, resumed 06/27/2022 due to his recent cardioversion and risk of cardioembolic events. Remains in sinus rhythm since his YOLIS-guided DCCV. EKG 06/28/2022 shows sinus rhythm rate 60, still a long first-degree AV block, and a prolonged QT interval with a QTC of 494 milliseconds. Sotalol has been discontinued Since the AFib may have been provoked by his acute illness, perhaps it will not recur. (3) Bacteremia: Code(s): R78.81 - Bacteremia Status: Acute Assessment and Plan: Has methicillin-resistant Staph bacteremia And sepsis. YOLIS negative for vegetations. (4) S/P aortic valve replacement with bioprosthetic valve: Code(s): Z95.3 - Presence of xenogenic heart valve Status: Acute Assessment and Plan: With a bacteremia there was concern for endocarditis. Echo not suggestive of endocarditis YOLIS negative for vegetations. (5) Hypotension: Code(s): I95.9 - Hypotension, unspecified Status: Acute Assessment and Plan: Blood pressure doing much better the last few days. (6) Acute on chronic anemia: Code(s): D64.9 - Anemia, unspecified Status: Acute Assessment and Plan: Guaiac positive + some [place] trauma. Received 2 units of packed cells this admission H&H stable; Eliquis resumed. Subjective Date/time seen: 06/29/22 10:03 Cardiology follow up for atrial fibrillation Feels well today. Swelling continues to improve. Denies chest pain, palpitations, shortness of breath. Review of Systems Constitutional: Constitutional: Reports fatigue and Reports weakness Eyes: Eyes: Reports no additional eye complaints ENT: Denies dysphagia and Denies epistaxis Cardiovascular: Cardiovascular: Reports as per HPI and Reports no additional cardiovascular complaints Respiratory: Respiratory: Reports as per HPI and Reports no additional respiratory complaints Gastrointestinal: Gastrointestinal: Reports no additional gastrointestinal complaints and Denies dysphagia Neurologic: Reports system reviewed and no additional complaints, except as documented, Denies confusion and Reports weakness Psychiatric: Psychiatric: Denies confusion Endocrine: Endocrine: Reports fatigue Hematologic/Lymphatic: Hematologic/Lymphatic: Denies easy bleeding and Denies easy bruising Exam Narrative: older male in bed, no distress. Const: General: cooperative, healthy appearing, comfortable and no acute distress; No confusion Orientation/consciousness: oriented to person, patient oriented x3 and No confusion HENMT: Mouth: Yes moist mucous membranes and Yes dry mucous membranes Eyes: General: appearance normal, both eyes and all related structures Sclera: sclerae normal Pupils: Equal, round and reactive pupils present EOM: EOMs intact bilaterally Neck: Neck: supple and no JVD Resp: Effort & Inspection: normal respiratory effort Auscultation: clear to auscultation bilaterally and diminished lung sounds Cardio: Rate: regular rate Rhythm: regular rhythm Heart sounds: no murmurs GI: Inspection: normal to inspection Auscultation: normal bowel sounds Skin: General skin exam: normal color and no rashes or lesions noted Neuro: General
[2022-06-29] MEDS: MIDODRINE HCL 2.5 MG TABLET PO ×3 (10:04→17:41)
[2022-06-29] MEDS: APIXABAN 2.5 MG TABLET PO ×2 (10:04→20:42)
[2022-06-29] MEDS: CALCIUM CARBONATE (OSCAL) 500 MG TABLET PO (10:04)
[2022-06-29 10:05] LABS: Kappa\\Lambda Light Chains 1.74 (0.26-1.65); Lambda Light Chain 46.7 mg/L (5.7-26.3)
[2022-06-29] MEDS: SODIUM CHLORIDE 1 GM TABLET PO ×2 (10:05→17:41)
[2022-06-29] MEDS: SACCHAROMYCES BOULARDII 250 MG CAPSULE PO ×3 (10:05→17:41)
[2022-06-29] MEDS: SOLIFENACIN 5 MG TABLET 10 MG PO (10:05)
[2022-06-29] MEDS: HYDROCORTISONE ACETATE 25 MG SUPPOSITORY RECTAL ×2 (10:06→20:42)
[2022-06-29] MEDS: BUMETANIDE INJ 1 MG/4 ML VIAL IV PUSH ×2 (10:07→17:41)
[2022-06-29] MEDS: FLUTICASONE PROPIONATE 0.05% NA SPR 16 GM BTL (*BKC) 2 SPRAY NASAL (10:07)
[2022-06-29] MEDS: FIDAXOMICIN 200 MG TABLET PO ×2 (10:07→20:42)
[2022-06-29] MEDS: ACETAMINOPHEN 325 MG TABLET 650 MG PO ×2 (12:22→20:42)
[2022-06-29 14:00] VITALS: BP 121/55; PULSE 73; RESP 18; TEMP 36.3; O2SAT 96
--- NOTE | 2022-06-29 16:04 | PM.PNNEP ---
Progress Note: A&P Assessment and Plan (1) ZORAN (acute kidney injury): Code(s): N17.9 - Acute kidney failure, unspecified Status: Acute Assessment and Plan: the patient has acute kidney injury. He has normal creatinine at baseline. His renal ultrasound is unremarkable. UA shows some blood and a few white cells. Urine electrolytes are pre renal CK is normal complements are low. off vanco. creatinine seems to be reaching a plateau (hopefully). still making some urine. (2) Septic shock: Code(s): A41.9 - Sepsis, unspecified organism; R65.21 - Severe sepsis with septic shock Status: Acute Assessment and Plan: The patient is on antibiotic for the MRSA. (3) C. difficile colitis: Code(s): A04.72 - Enterocolitis due to Clostridium difficile, not specified as recurrent Status: Acute Assessment and Plan: The patient is on Vanco orally. Things seem to be settling down. Eating pretty well. Stools are less liquid. (4) Edema of both upper arms: Code(s): R60.0 - Localized edema Status: Acute Assessment and Plan: The patient has swelling in the arms and in the legs. Arm edema may be because his arms or dependent.Possibly this is due to the low albumin. Albumin level is stable in the high 2s (5) Atrial fibrillation with RVR: Code(s): I48.91 - Unspecified atrial fibrillation Status: Acute Assessment and Plan: the patient is in sinus rhythm and anticoagulated. His Eliquis was restarted (6) Acute on chronic anemia: Code(s): D64.9 - Anemia, unspecified Status: Acute Assessment and Plan: he is on epo (7) Mixed hyperlipidemia: Code(s): E78.2 - Mixed hyperlipidemia Status: Acute Assessment and Plan: He is on atorvastatin at home (8) Hypothyroidism, unspecified: Code(s): E03.9 - Hypothyroidism, unspecified Status: Acute Assessment and Plan: getting supplements (9) Essential hypertension: Code(s): I10 - Essential (primary) hypertension Status: Acute Assessment and Plan: blood pressure is between 100 and 110. (10) Shortness of breath: Code(s): R06.02 - Shortness of breath Status: Acute Assessment and Plan: the patient is no longer sob. on lower dose of diuretics. (11) Hyponatremia: Code(s): E87.1 - Hypo-osmolality and hyponatremia Status: Acute Assessment and Plan: sodium was low and is gradually better. Cortisol level is low. Cortrosyn stim resulted in a cortisol level 31. TSH is normal. Most likely this is due to the renal insufficiency and pre renal factors. Although he has had some mild hyponatremia in the past. CT of the head and chest x-ray are negative. No history of cancer. stop pantoprazole Sodium level stable at 129 Plan .. Subjective Date/time seen: 06/29/22 16:04 Interval history: Naga feels pretty good today. He is not short of breath. his stool is still pudding in texture, 2-3 times per day in room. Exam Narrative: WDWN in NAD skin no rash or subcu nodules head ncat lungs fairly clear. cor reg no rub or gallop abd BS+ nontender and soft ext trace to 1+ bilateral edema. Objective Data Vital Signs Vital Signs: Vital Signs - 24 hr 06/28/22 22:00 06/29/22 06:00 06/29/22 08:00 Temperature 36.6 C 36.3 C L Pulse Rate 67 76 76 Respiratory Rate 18 20 20 Blood Pressure 113/66 141/70 H Pulse Oximetry 95 95 95 Oxygen Delivery Room Air 06/29/22 14:00 Temperature 36.3 C L Pulse Rate 73 Respiratory Rate 18 Blood Pressure 121/55 L Pulse Oximetry 96 Oxygen Delivery Intake/Output Intake/Output: Intake & Output 06/26/22 06/27/22 06/28/22 06/29/22 23:59 23:59 23:59 23:59 Intake Total 796 889 8458 342 Output Total 1650 3222 547 1496 Balance -1030 -60 300 -808 Meds/Resu
--- NOTE | 2022-06-29 18:20 | P.PNIM_ITS ---
Progress Note: A&P Assessment and Plan (1) Anemia: Code(s): D64.9 - Anemia, unspecified Status: Acute (2) Chest pain: Code(s): R07.9 - Chest pain, unspecified Status: Acute (3) Edema of both upper arms: Code(s): R60.0 - Localized edema Status: Acute (4) ZORAN (acute kidney injury): Code(s): N17.9 - Acute kidney failure, unspecified Status: Acute (5) CHF (congestive heart failure): Code(s): I50.9 - Heart failure, unspecified Status: Acute (6) Septic shock: Code(s): A41.9 - Sepsis, unspecified organism; R65.21 - Severe sepsis with septic shock Status: Acute (7) Bacteremia: Code(s): R78.81 - Bacteremia Status: Acute (8) Hematuria: Code(s): R31.9 - Hematuria, unspecified Status: Acute (9) C. difficile colitis: Code(s): A04.72 - Enterocolitis due to Clostridium difficile, not specified as recurrent Status: Acute (10) Atrial fibrillation with RVR: Code(s): I48.91 - Unspecified atrial fibrillation Status: Acute (11) Elevated d-dimer: Code(s): R79.89 - Other specified abnormal findings of blood chemistry Status: Acute (12) Thrombocytopenia: Code(s): D69.6 - Thrombocytopenia, unspecified Status: Acute (13) Hypothyroidism, unspecified: Code(s): E03.9 - Hypothyroidism, unspecified Status: Acute (14) BPH without obstruction/lower urinary tract symptoms: Code(s): N40.0 - Benign prostatic hyperplasia without lower urinary tract symptoms Status: Acute (15) Acute UTI: Code(s): N39.0 - Urinary tract infection, site not specified Status: Acute Plan 06/27/22 Hemoglobin dropped to 6.7 on 06/25. Iron studies noted and low TIBC related to protein loss. Transfused 2U. Hgb back up to 9 range. He feels better. Follow HH. Stool guaiac positive but with hemorrhoids. Tucks, Anusol. GI consulted but no plans for scopes. Eliquis resumed at renal dosing. Patient woke up with chest pain 06/25.? EKG performed showing no acute findings.? Prolonged QT at 483 possibly related to the sotalol.? Troponins were elevated but trending down.? CXR showing extensive bilateral disease. Patient transfused. Suspect symptoms related to the anemia. Cards made aware. Arm edema noted and doppler negative for UE DVT. Doubt SVT syndrome. Albumin dropped to 2.1 with worsening renal function and worsening hyponatremia. Suspect patient is 3rd spacing fluid given the diffuse edema. 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 C3/C4 low as well consistent with protein loss. There is no protein in his urine. Currently on scheduled d iuretics. Nephrology consulted and appreciate their input. Cr 1.6 on admission but normalized to 0.8. Cr back up today to 2.5. Sodium was low at 121 and Urine studies more consistent with pre-renal but patient eating well. Urine eos negative. Renal US showing bilateral simple cysts but no acute issues.? EF 60-65%. UA noted. Suspect intravascular dry with 3rd spacing. UOP 1650 yesterday. Nephrology consulted and appreciate their input.? CXR showing extensive bilateral disease. Diffusely edematous. Appears to be 3rd spacing fluids. Probably a component of acute diastolic CHF exacerbation. As above. Patient here for septic shock with septicemia; positive blood cultures for MRSA. BCx 06/13 2of2 positive for MRSA and 1of2 on 06/15. BCx 06/17 remaining negative. No IE by YOLIS. Was on IV vancomycin (started 06/15 1240). No clear focus of infection. Discussed with PharmD ID. Remove central line and culture tip - if negative,
[2022-06-29 20:00] VITALS: PULSE 73; RESP 18; O2SAT 96
[2022-06-29] MEDS: TAMSULOSIN HCL 0.4 MG CAPSULE PO (20:42)
[2022-06-29] MEDS: FAMOTIDINE 20 MG TABLET PO (20:42)
[2022-06-29] MEDS: ATORVASTATIN 10 MG TABLET PO (20:42)
[2022-06-29 22:00] VITALS: BP 126/64; PULSE 70; RESP 18; TEMP 36.4; O2SAT 97
[2022-06-30] MEDS: ACETAMINOPHEN 325 MG TABLET 650 MG PO ×2 (03:20→12:31)
[2022-06-30] MEDS: LEVOTHYROXINE SODIUM 50 MCG TABLET PO (05:49)
[2022-06-30 06:00] VITALS: BP 126/75; PULSE 74; RESP 18; TEMP 36.9; O2SAT 94
[2022-06-30 06:32] LABS: Basophils Absolute Auto 0.1 K/mm3 (0.0-0.1); Basophils Percent Auto 1.2 % (0.2-1.2); Eosinophils Absolute Auto 0.1 K/mm3 (0-0.3); Eosinophils Percent Auto 2.9 % (0-4.4); Hematocrit 26.4 % (42.0-52.0); Hemoglobin 8.9 g/dL (14.0-18.0); Immature Granulocyte Absolute 0.03 K/mm3 (0.00-0.031); Immature Granulocyte Percent A 0.7 % (0-0.5); Immature Platelet Fraction Pct 2.7 % (0.9-11.2); Lymphocytes Absolute Auto 0.64 K/mm3 (0.9-3.2); Lymphocytes Percent Auto 15.6 % (18.3-44.2); Mean Corpuscular HGB Conc 33.7 g/dl (32-36); Mean Corpuscular Hemoglobin 34.1 pg (26-34); Mean Corpuscular Volume 101.1 fl (80-100); Mean Platelet Volume 9.7 fl (7.4-10.4); Monocytes Absolute Auto 0.4 K/mm3 (0.1-0.6); Monocytes Percent Auto 9.5 % (2.6-8.5); Neutrophils Absolute Auto 2.9 K/mm3 (1.3-6.7); Neutrophils Percent Auto 70.1 % (45.5-73.1); Platelet Count Result 82 k/mm3 (150-375); Red Blood Count 2.61 M/mm3 (4.6-6.20); Red Cell Distribution Width 16.4 % (11.5-14.5); White Blood Count 4.1 K/mm3 (4.5-10.0)
[2022-06-30 06:41] LABS: Alanine Aminotransferase 21 U/L (6-50); Albumin Level 2.9 g/dL (3.5-5.1); Alkaline Phosphatase 83 U/L (38-126); Anion Gap 9 mmol/L (8-16); Aspartate Amino Transferase 23 U/L (17-59); Blood Urea Nitrogen 40 mg/dL (9-20); Calcium 7.7 mg/dL (8.4-10.2); Carbon Dioxide 27 mmol/L (22-30); Chloride 94 mmol/L (98-107); Estimated CRCL calculation 21 ml/min; Estimated Glomerular Filt Rate 24; Glucose 95 mg/dL (65-110); Magnesium 1.7 mg/dL (1.6-2.3); Phosphorus 4.2 mg/dL (2.5-4.5); Potassium 3.4 mmol/L (3.4-5.0); Sodium 130 mmol/L (137-145)
[2022-06-30] MEDS: SOLIFENACIN 5 MG TABLET 10 MG PO (09:13)
[2022-06-30] MEDS: guaiFENesin 600 MG/DEXTROMETHORPHAN 30 MG SR TAB 12 HR 1 TAB PO ×2 (09:14→21:16)
[2022-06-30] MEDS: SODIUM CHLORIDE 1 GM TABLET PO ×2 (09:14→18:02)
[2022-06-30] MEDS: FIDAXOMICIN 200 MG TABLET PO (09:14)
[2022-06-30] MEDS: BUMETANIDE INJ 1 MG/4 ML VIAL IV PUSH ×2 (09:14→18:02)
[2022-06-30] MEDS: FAMOTIDINE 20 MG TABLET PO ×2 (09:14→21:16)
[2022-06-30] MEDS: CALCIUM CARBONATE (OSCAL) 500 MG TABLET PO (09:14)
[2022-06-30] MEDS: MIDODRINE HCL 2.5 MG TABLET PO ×3 (09:14→18:03)
[2022-06-30] MEDS: SACCHAROMYCES BOULARDII 250 MG CAPSULE PO ×3 (09:14→18:03)
[2022-06-30] MEDS: MAGNESIUM OXIDE 200 MG TABLET PO (09:14)
[2022-06-30] MEDS: APIXABAN 2.5 MG TABLET PO ×2 (09:14→21:16)
[2022-06-30] MEDS: FLUTICASONE PROPIONATE 0.05% NA SPR 16 GM BTL (*BKC) 2 SPRAY NASAL (09:15)
[2022-06-30] MEDS: DAPTOmycin 750 MG in SODIUM CHLORIDE 0.9% IV 50 ML 100 MG IVPB (09:24)
[2022-06-30 14:00] VITALS: BP 122/61; PULSE 75; RESP 18; TEMP 37.6; O2SAT 97
[2022-06-30] MEDS: metroNIDAZOLE 500 MG/ISO 100ML 500 MG/100 ML BAG 100 MG IVPB ×2 (15:04→22:22)
[2022-06-30] MEDS: VANCOMYCIN ORAL 500 MG/10 ML SYRUP PO ×2 (15:04→18:08)
--- NOTE | 2022-06-30 16:40 | PM.PNNEP ---
Progress Note: A&P Assessment and Plan (1) ZORAN (acute kidney injury): Code(s): N17.9 - Acute kidney failure, unspecified Status: Acute Assessment and Plan: the patient has acute kidney injury. He has normal creatinine at baseline. His renal ultrasound is unremarkable. UA shows some blood and a few white cells. Urine electrolytes are pre renal CK is normal complements are low. off vanco. creatinine dropped a little bit. Urine output is good. (2) Septic shock: Code(s): A41.9 - Sepsis, unspecified organism; R65.21 - Severe sepsis with septic shock Status: Acute Assessment and Plan: The patient is on antibiotic for the MRSA. (3) C. difficile colitis: Code(s): A04.72 - Enterocolitis due to Clostridium difficile, not specified as recurrent Status: Acute Assessment and Plan: Patient is on Dificid. Eating pretty well. Stools are about the same (4) Edema of both upper arms: Code(s): R60.0 - Localized edema Status: Acute Assessment and Plan: The patient has swelling in the arms and in the legs. Arm edema may be because his arms or dependent.Possibly this is due to the low albumin. Albumin level is stable in the high 2s (5) Atrial fibrillation with RVR: Code(s): I48.91 - Unspecified atrial fibrillation Status: Acute Assessment and Plan: the patient is in sinus rhythm and anticoagulated. His Eliquis was restarted (6) Acute on chronic anemia: Code(s): D64.9 - Anemia, unspecified Status: Acute Assessment and Plan: he is on epo (7) Mixed hyperlipidemia: Code(s): E78.2 - Mixed hyperlipidemia Status: Acute Assessment and Plan: He is on atorvastatin at home (8) Hypothyroidism, unspecified: Code(s): E03.9 - Hypothyroidism, unspecified Status: Acute Assessment and Plan: getting supplements (9) Essential hypertension: Code(s): I10 - Essential (primary) hypertension Status: Acute Assessment and Plan: blood pressure is between 100 and 110. (10) Shortness of breath: Code(s): R06.02 - Shortness of breath Status: Acute Assessment and Plan: the patient is no longer sob. on lower dose of diuretics. (11) Hyponatremia: Code(s): E87.1 - Hypo-osmolality and hyponatremia Status: Acute Assessment and Plan: sodium was low and is gradually better. Cortisol level is low. Cortrosyn stim resulted in a cortisol level 31. TSH is normal. Most likely this is due to the renal insufficiency and pre renal factors. Although he has had some mild hyponatremia in the past. CT of the head and chest x-ray are negative. No history of cancer. stop pantoprazole Sodium level stable at 129 Plan .. Subjective Date/time seen: 06/30/22 16:40 Interval history: Naga feels pretty good today. He is not short of breath. daughter and are in the room. Still has putting texture stools Exam Narrative: WDWN in NAD skin no rash or subcu nodules head ncat lungs fairly clear. cor reg no rub or gallop abd BS+ nontender and soft ext trace to 1+ bilateral edema. Objective Data Vital Signs Vital Signs: Vital Signs - 24 hr 06/29/22 20:00 06/29/22 22:00 06/30/22 06:00 Temperature 36.4 C 36.9 C Pulse Rate 73 70 74 Respiratory Rate 18 18 18 Blood Pressure 126/64 126/75 Pulse Oximetry 96 97 94 Oxygen Delivery Room Air 06/30/22 14:00 06/30/22 08:00 Temperature 37.6 C Pulse Rate 75 Respiratory Rate 18 Blood Pressure 122/61 Pulse Oximetry 97 Oxygen Delivery Room Air Intake/Output Intake/Output: Intake & Output 06/27/22 06/28/22 06/29/22 06/30/22 23:59 23:59 23:59 23:59 Intake Total 990 1110 1328 530 Output Total 4802 842 1996 1300 Balance -60 562 -791 -844 Meds/Results Medications: Active Medications
[2022-06-30 19:06] LABS: Albumin 60 %; Measured Kappa Chains 4.02 mg/dL (<2.00); Pro/Creat Ratio 678 mg/g creat (<100); Total Kappa Chains 68.34 mg/24 h; Total Lambda Chains 17 mg/24 h
[2022-06-30] MEDS: TAMSULOSIN HCL 0.4 MG CAPSULE PO (21:16)
[2022-06-30] MEDS: ATORVASTATIN 10 MG TABLET PO (21:16)
[2022-06-30 22:00] VITALS: BP 129/63; PULSE 69; RESP 21; TEMP 36.6; O2SAT 100
[2022-07-01] MEDS: VANCOMYCIN ORAL 500 MG/10 ML SYRUP PO ×4 (00:18→17:54)
[2022-07-01] MEDS: ACETAMINOPHEN 325 MG TABLET 650 MG PO ×2 (05:13→09:53)
[2022-07-01] MEDS: metroNIDAZOLE 500 MG/ISO 100ML 500 MG/100 ML BAG 100 MG IVPB ×3 (05:14→21:04)
[2022-07-01] MEDS: LEVOTHYROXINE SODIUM 50 MCG TABLET PO (05:24)
[2022-07-01 06:00] VITALS: BP 131/66; PULSE 78; RESP 20; TEMP 36.8; O2SAT 96
[2022-07-01 06:31] LABS: Alanine Aminotransferase 21 U/L (6-50); Albumin Level 2.8 g/dL (3.5-5.1); Alkaline Phosphatase 85 U/L (38-126); Anion Gap 10 mmol/L (8-16); Aspartate Amino Transferase 25 U/L (17-59); Bilirubin,Total 1.1 mg/dL (0.2-1.3); Blood Urea Nitrogen 36 mg/dL (9-20); Calcium 7.5 mg/dL (8.4-10.2); Carbon Dioxide 26 mmol/L (22-30); Chloride 94 mmol/L (98-107); Estimated CRCL calculation 22 ml/min; Estimated Glomerular Filt Rate 25; Glucose 95 mg/dL (65-110); Magnesium 1.5 mg/dL (1.6-2.3); Phosphorus 3.9 mg/dL (2.5-4.5); Potassium 3.1 mmol/L (3.4-5.0); Sodium 130 mmol/L (137-145)
[2022-07-01 09:48] VITALS: BP 126/57; PULSE 86; RESP 16; O2SAT 97
[2022-07-01] MEDS: SACCHAROMYCES BOULARDII 250 MG CAPSULE PO ×3 (09:52→17:54)
[2022-07-01] MEDS: guaiFENesin 600 MG/DEXTROMETHORPHAN 30 MG SR TAB 12 HR 1 TAB PO ×2 (09:52→21:04)
[2022-07-01] MEDS: SOLIFENACIN 5 MG TABLET 10 MG PO (09:52)
[2022-07-01] MEDS: APIXABAN 2.5 MG TABLET PO ×2 (09:52→21:04)
[2022-07-01] MEDS: FAMOTIDINE 20 MG TABLET PO ×2 (09:52→21:04)
[2022-07-01] MEDS: MAGNESIUM OXIDE 200 MG TABLET PO (09:52)
[2022-07-01] MEDS: MIDODRINE HCL 2.5 MG TABLET PO ×3 (09:52→17:54)
[2022-07-01] MEDS: CALCIUM CARBONATE (OSCAL) 500 MG TABLET PO (09:53)
[2022-07-01] MEDS: BUMETANIDE INJ 1 MG/4 ML VIAL IV PUSH ×2 (09:53→17:54)
[2022-07-01] MEDS: FLUTICASONE PROPIONATE 0.05% NA SPR 16 GM BTL (*BKC) 2 SPRAY NASAL (09:53)
[2022-07-01] MEDS: SODIUM CHLORIDE 1 GM TABLET PO ×2 (09:53→17:54)
[2022-07-01 14:00] VITALS: BP 109/68; PULSE 76; RESP 20; TEMP 36.5; O2SAT 98
--- NOTE | 2022-07-01 15:19 | PM.PNNEP ---
Progress Note: A&P Assessment and Plan (1) ZORAN (acute kidney injury): Code(s): N17.9 - Acute kidney failure, unspecified Status: Acute Assessment and Plan: the patient has acute kidney injury. He has normal creatinine at baseline. His renal ultrasound is unremarkable. UA shows some blood and a few white cells. Urine electrolytes are pre renal CK is normal complements are low. off vanco. creatinine dropped a little bit again. Urine output is good. continue to observe. (2) Septic shock: Code(s): A41.9 - Sepsis, unspecified organism; R65.21 - Severe sepsis with septic shock Status: Acute Assessment and Plan: The patient is on antibiotic for the MRSA. (3) C. difficile colitis: Code(s): A04.72 - Enterocolitis due to Clostridium difficile, not specified as recurrent Status: Acute Assessment and Plan: Patient is on Dificid. Eating pretty well. Stools are a little better today (4) Edema of both upper arms: Code(s): R60.0 - Localized edema Status: Acute Assessment and Plan: improved (5) Atrial fibrillation with RVR: Code(s): I48.91 - Unspecified atrial fibrillation Status: Acute Assessment and Plan: the patient is in sinus rhythm and anticoagulated. His Eliquis was restarted (6) Acute on chronic anemia: Code(s): D64.9 - Anemia, unspecified Status: Acute Assessment and Plan: he is on epo check cbc in am (7) Mixed hyperlipidemia: Code(s): E78.2 - Mixed hyperlipidemia Status: Acute Assessment and Plan: He is on atorvastatin at home (8) Hypothyroidism, unspecified: Code(s): E03.9 - Hypothyroidism, unspecified Status: Acute Assessment and Plan: getting supplements (9) Essential hypertension: Code(s): I10 - Essential (primary) hypertension Status: Acute Assessment and Plan: blood pressure is between 100 and 110. (10) Shortness of breath: Code(s): R06.02 - Shortness of breath Status: Acute Assessment and Plan: the patient is no longer sob. on lower dose of diuretics. (11) Hyponatremia: Code(s): E87.1 - Hypo-osmolality and hyponatremia Status: Acute Assessment and Plan: sodium was low and is gradually better. Cortisol level is low. Cortrosyn stim resulted in a cortisol level 31. TSH is normal. Most likely this is due to the renal insufficiency and pre renal factors. Although he has had some mild hyponatremia in the past. CT of the head and chest x-ray are negative. No history of cancer. stop pantoprazole Sodium level stable at 129 Plan .. Subjective Date/time seen: 07/01/22 15:19 Interval history: and daughter are in the room. Naga feels better. stools a little less frequent. Exam Narrative: WDWN in NAD skin no rash or subcu nodules head ncat lungs clear cor reg no rub or gallop abd BS+ nontender and soft ext trace to 1+ bilateral edema. Objective Data Vital Signs Vital Signs: Vital Signs - 24 hr 06/30/22 22:00 06/30/22 20:20 07/01/22 06:00 Temperature 36.6 C 36.8 C Pulse Rate 69 78 Respiratory Rate 21 H 20 Blood Pressure 129/63 131/66 Pulse Oximetry 100 96 Oxygen Delivery Room Air 07/01/22 09:48 07/01/22 08:30 Temperature Pulse Rate 86 Respiratory Rate 16 Blood Pressure 126/57 L Pulse Oximetry 97 Oxygen Delivery Room Air Intake/Output Intake/Output: Intake & Output 06/28/22 06/29/22 06/30/22 07/01/22 23:59 23:59 23:59 23:59 Intake Total 1110 1328 1210 820 Output Total 760 1450 1500 955 Balance 350 -122 -290 -135 Meds/Results Medications: Active Medications Generic Name Dose Route Start Last Admin Trade Name Freq PRN Reason Stop Dose Admin Acetaminophen 650 mg 06/14/22 08:01 07/01/22 09:53 Acetaminophen 325 Mg Tablet PO 650 mg
[2022-07-01 19:09] LABS: Hematocrit 25.6 % (42.0-52.0); Hemoglobin 8.6 g/dL (14.0-18.0); Immature Platelet Fraction Pct 3.5 % (0.9-11.2); Mean Corpuscular HGB Conc 33.6 g/dl (32-36); Mean Corpuscular Hemoglobin 34.3 pg (26-34); Mean Platelet Volume 9.3 fl (7.4-10.4); Platelet Count Result 76 k/mm3 (150-375); Red Blood Count 2.51 M/mm3 (4.6-6.20); Red Cell Distribution Width 16.3 % (11.5-14.5); White Blood Count 4.6 K/mm3 (4.5-10.0)
[2022-07-01] MEDS: ATORVASTATIN 10 MG TABLET PO (21:04)
[2022-07-01] MEDS: TAMSULOSIN HCL 0.4 MG CAPSULE PO (21:04)
[2022-07-01 21:29] VITALS: BP 137/72; PULSE 72; RESP 18; TEMP 36.9; O2SAT 95
[2022-07-02] MEDS: VANCOMYCIN ORAL 500 MG/10 ML SYRUP PO ×4 (00:06→17:49)
--- NOTE | 2022-07-02 01:25 | PC.NURSE ---
Daylight Savings Time For Daylight Savings Time Ending in the Fall - Clocks are moved back. For Daylight Savings Time Beginning in the Spring - Clocks are moved ahead. For [facility], the time of change occurs at 0200 hrs. Time is taken from the meat and seafood clerk. This entry on the patient's chart recognizes the change in time reflected during documentation. Example: 2 entries for vital signs may be charted for 0200 hrs.
[2022-07-02] MEDS: LEVOTHYROXINE SODIUM 50 MCG TABLET PO (05:40)
[2022-07-02] MEDS: metroNIDAZOLE 500 MG/ISO 100ML 500 MG/100 ML BAG 100 MG IVPB ×3 (05:40→21:05)
[2022-07-02] MEDS: ACETAMINOPHEN 325 MG TABLET 650 MG PO (05:45)
[2022-07-02 06:00] VITALS: BP 129/65; PULSE 86; RESP 18; TEMP 36.3; O2SAT 93
[2022-07-02 07:58] LABS: Hematocrit 24.8 % (42.0-52.0); Hemoglobin 8.4 g/dL (14.0-18.0); Immature Platelet Fraction Pct 3.5 % (0.9-11.2); Mean Corpuscular HGB Conc 33.9 g/dl (32-36); Mean Corpuscular Hemoglobin 34.7 pg (26-34); Mean Corpuscular Volume 102.5 fl (80-100); Mean Platelet Volume 9.8 fl (7.4-10.4); Platelet Count Result 74 k/mm3 (150-375); Red Blood Count 2.42 M/mm3 (4.6-6.20); Red Cell Distribution Width 16.2 % (11.5-14.5); White Blood Count 4.6 K/mm3 (4.5-10.0)
[2022-07-02 08:10] LABS: Albumin Level 2.8 g/dL (3.5-5.1); Anion Gap 7 mmol/L (8-16); Blood Urea Nitrogen 30 mg/dL (9-20); Calcium 7.4 mg/dL (8.4-10.2); Carbon Dioxide 28 mmol/L (22-30); Chloride 94 mmol/L (98-107); Estimated CRCL calculation 23 ml/min; Estimated Glomerular Filt Rate 26; Glucose 100 mg/dL (65-110); Sodium 129 mmol/L (137-145)
[2022-07-02] MEDS: FLUTICASONE PROPIONATE 0.05% NA SPR 16 GM BTL (*BKC) 2 SPRAY NASAL (09:00)
[2022-07-02] MEDS: MAGNESIUM SULF 1 GM/D5W 100 ML 1 GM/100 ML BAG IVPB (10:26)
[2022-07-02] MEDS: SACCHAROMYCES BOULARDII 250 MG CAPSULE PO ×3 (10:27→17:49)
[2022-07-02] MEDS: POTASSIUM CHLORIDE 20 MEQ TABLET 60 MEQ PO (10:27)
[2022-07-02] MEDS: MIDODRINE HCL 2.5 MG TABLET PO ×3 (10:28→17:49)
[2022-07-02] MEDS: CALCIUM CARBONATE (OSCAL) 500 MG TABLET PO (10:28)
[2022-07-02] MEDS: BUMETANIDE INJ 1 MG/4 ML VIAL IV PUSH ×2 (10:29→17:49)
[2022-07-02] MEDS: guaiFENesin 600 MG/DEXTROMETHORPHAN 30 MG SR TAB 12 HR 1 TAB PO ×2 (10:29→21:05)
[2022-07-02] MEDS: FAMOTIDINE 20 MG TABLET PO ×2 (10:29→21:05)
[2022-07-02] MEDS: SODIUM CHLORIDE 1 GM TABLET PO ×2 (10:29→17:49)
[2022-07-02] MEDS: APIXABAN 2.5 MG TABLET PO ×2 (10:29→21:05)
[2022-07-02] MEDS: MAGNESIUM OXIDE 200 MG TABLET PO (10:29)
--- NOTE | 2022-07-02 10:56 | PM.PNNEP ---
Progress Note: A&P Assessment and Plan (1) ZORAN (acute kidney injury): Code(s): N17.9 - Acute kidney failure, unspecified Status: Acute Assessment and Plan: the patient has acute kidney injury. He has normal creatinine at baseline. His renal ultrasound is unremarkable. UA shows some blood and a few white cells. Urine electrolytes are pre renal CK is normal complements are low. off vanco. creatinine dropped a little bit again. Very slow but consistent improvement. Urine output is good. continue to observe. (2) Septic shock: Code(s): A41.9 - Sepsis, unspecified organism; R65.21 - Severe sepsis with septic shock Status: Acute Assessment and Plan: The patient is on antibiotic for the MRSA. (3) C. difficile colitis: Code(s): A04.72 - Enterocolitis due to Clostridium difficile, not specified as recurrent Status: Acute Assessment and Plan: Patient is on Dificid. Eating pretty well. Stools are a little better today (4) Edema of both upper arms: Code(s): R60.0 - Localized edema Status: Acute Assessment and Plan: improving slowly (5) Atrial fibrillation with RVR: Code(s): I48.91 - Unspecified atrial fibrillation Status: Acute Assessment and Plan: the patient is in sinus rhythm and anticoagulated. His Eliquis was restarted (6) Acute on chronic anemia: Code(s): D64.9 - Anemia, unspecified Status: Acute Assessment and Plan: he is on epo hemoglobin 8.4. Check again in the morning (7) Mixed hyperlipidemia: Code(s): E78.2 - Mixed hyperlipidemia Status: Acute Assessment and Plan: He is on atorvastatin at home (8) Hypothyroidism, unspecified: Code(s): E03.9 - Hypothyroidism, unspecified Status: Acute Assessment and Plan: getting supplements (9) Essential hypertension: Code(s): I10 - Essential (primary) hypertension Status: Acute Assessment and Plan: blood pressure is between 100 and 110. (10) Shortness of breath: Code(s): R06.02 - Shortness of breath Status: Acute Assessment and Plan: the patient is no longer sob. on lower dose of diuretics. (11) Hyponatremia: Code(s): E87.1 - Hypo-osmolality and hyponatremia Status: Acute Assessment and Plan: sodium was low and is gradually better. Cortisol level is low. Cortrosyn stim resulted in a cortisol level 31. TSH is normal. Most likely this is due to the renal insufficiency and pre renal factors. Although he has had some mild hyponatremia in the past. CT of the head and chest x-ray are negative. No history of cancer. stop pantoprazole Sodium level stable at 129 Plan .. Subjective Date/time seen: 07/02/22 10:56 Interval history: Naga feels better. stools a little less frequent and firmer. No shortness of breath. His edema is better. Exam Narrative: WDWN in NAD skin no rash or subcu nodules head ncat lungs clear cor reg no rub or gallop abd BS+ nontender and soft ext trace to 1+ bilateral edema. Objective Data Vital Signs Vital Signs: Vital Signs - 24 hr 07/01/22 14:00 07/01/22 21:29 07/02/22 06:00 Temperature 36.5 C 36.9 C 36.3 C L Pulse Rate 76 72 86 Respiratory Rate 20 18 18 Blood Pressure 109/68 137/72 129/65 Pulse Oximetry 98 95 93 Intake/Output Intake/Output: Intake & Output 06/29/22 06/30/22 07/01/22 07/02/22 23:59 23:59 23:59 22:59 Intake Total 1328 1210 1140 340 Output Total 1450 8059 433 3696 Balance -122 -290 185 -710 Meds/Results Medications: Active Medications Generic Name Dose Route Start Last Admin Trade Name Freq PRN Reason Stop Dose Admin Acetaminophen 650 mg 06/14/22 08:01 07/02/22 05:45 Acetaminophen 325 Mg Tablet PO 650 mg Q4H PRN Administration Mild Pain (1-3) or Fever Albuterol 1 puff
[2022-07-02] MEDS: SOLIFENACIN 5 MG TABLET 10 MG PO (12:57)
[2022-07-02] MEDS: CLOBETASOL PROPIONATE 0.05% CREAM 15 GM 1 APPLIC TOPICAL ×2 (12:57→21:06)
[2022-07-02 14:00] VITALS: BP 147/71; PULSE 81; RESP 16; TEMP 36.2; O2SAT 98
--- NOTE | 2022-07-02 16:00 | PCPTNOTE ---
Patient declined treatment this session due to just wanting to rest this evening. Will continue per PT plan of care.
--- NOTE | 2022-07-02 16:58 | PC.NURSE ---
Pt had an episode of loose stool today. Pt has had no complaints of pain. Pt did report mild nausea. Pt was offered zofran, pt refused. Pt participated and contributed in plan of care. Pt states he has no needs or complaints of pain at this time. Will continue to monitor pt.
[2022-07-02] MEDS: TAMSULOSIN HCL 0.4 MG CAPSULE PO (21:05)
[2022-07-02] MEDS: ATORVASTATIN 10 MG TABLET PO (21:05)
[2022-07-02 21:48] VITALS: BP 139/73; PULSE 83; RESP 20; TEMP 36.6; O2SAT 97
[2022-07-03] MEDS: VANCOMYCIN ORAL 500 MG/10 ML SYRUP PO ×4 (00:20→17:13)
[2022-07-03] MEDS: LEVOTHYROXINE SODIUM 50 MCG TABLET PO (05:55)
[2022-07-03] MEDS: metroNIDAZOLE 500 MG/ISO 100ML 500 MG/100 ML BAG 100 MG IVPB ×3 (05:56→22:14)
[2022-07-03 06:00] VITALS: BP 144/79; PULSE 94; RESP 20; TEMP 36.6; O2SAT 95
[2022-07-03 06:26] LABS: Hematocrit 26.3 % (42.0-52.0); Hemoglobin 8.7 g/dL (14.0-18.0); Immature Platelet Fraction Pct 4.1 % (0.9-11.2); Mean Corpuscular HGB Conc 33.1 g/dl (32-36); Mean Corpuscular Hemoglobin 34.1 pg (26-34); Mean Corpuscular Volume 103.1 fl (80-100); Mean Platelet Volume 10.3 fl (7.4-10.4); Platelet Count Result 73 k/mm3 (150-375); Red Blood Count 2.55 M/mm3 (4.6-6.20); Red Cell Distribution Width 16.3 % (11.5-14.5)
[2022-07-03 06:43] LABS: Albumin Level 2.8 g/dL (3.5-5.1); Anion Gap 9 mmol/L (8-16); Blood Urea Nitrogen 31 mg/dL (9-20); Calcium 7.8 mg/dL (8.4-10.2); Carbon Dioxide 29 mmol/L (22-30); Chloride 94 mmol/L (98-107); Estimated CRCL calculation 21 ml/min; Estimated Glomerular Filt Rate 27; Glucose 97 mg/dL (65-110); Phosphorus 3.6 mg/dL (2.5-4.5); Potassium 3.3 mmol/L (3.4-5.0); Sodium 132 mmol/L (137-145)
[2022-07-03] MEDS: BUMETANIDE INJ 1 MG/4 ML VIAL IV PUSH ×2 (09:10→17:13)
[2022-07-03] MEDS: APIXABAN 2.5 MG TABLET PO ×2 (09:10→22:13)
[2022-07-03] MEDS: CALCIUM CARBONATE (OSCAL) 500 MG TABLET PO (09:10)
[2022-07-03] MEDS: FAMOTIDINE 20 MG TABLET PO ×2 (09:11→22:13)
[2022-07-03] MEDS: guaiFENesin 600 MG/DEXTROMETHORPHAN 30 MG SR TAB 12 HR 1 TAB PO ×2 (09:11→22:13)
[2022-07-03] MEDS: FLUTICASONE PROPIONATE 0.05% NA SPR 16 GM BTL (*BKC) 2 SPRAY NASAL (09:11)
[2022-07-03] MEDS: SODIUM CHLORIDE 1 GM TABLET PO ×2 (09:12→17:13)
[2022-07-03] MEDS: SACCHAROMYCES BOULARDII 250 MG CAPSULE PO ×3 (09:12→17:13)
[2022-07-03] MEDS: MAGNESIUM OXIDE 200 MG TABLET PO (09:12)
[2022-07-03] MEDS: SOLIFENACIN 5 MG TABLET 10 MG PO (09:12)
[2022-07-03] MEDS: MIDODRINE HCL 2.5 MG TABLET PO ×3 (09:12→17:13)
[2022-07-03 09:43] VITALS: BP 119/69; PULSE 118
--- NOTE | 2022-07-03 12:07 | PCNFU ---
Nutrition Follow-Up Complete: Altered GI function related to diarrhea as evidenced by GI documentation Goal: Improved GI symptoms Goal: Pt current nutrition is Heart Healthy. Last recorded weight is 84.9 kg. Bowel Motility:+Bm reported 06/01 Labs Reviewed:GFR 27, Na 132, Alb 2.8,Hct 26.3,Hgb 8.7 Meds Noted:Eliquis,Protonix,Synthroid Skin: WNL Additional Notes: Nutrition follow up. Patient on isolation for Cdiff. No BM reported today. Tolerating heart healthy diet, eating 50-100% of meals. Patient has Banatrol Plus ordered BID but nursing is stating he is not taking it. Encouraged supplement and PO intake. Agree with diet orders. Monitor intake, wt, GI. Follow up in 7 days.
--- NOTE | 2022-07-03 12:29 | P.PNNP_ITS ---
Progress Note: A&P Assessment and Plan (1) ZORAN (acute kidney injury): Code(s): N17.9 - Acute kidney failure, unspecified Status: Acute Assessment and Plan: * slow improvement noted with reasonable urine output * presumably due to sepsis and C. diff colitis * evaluation to date: * renal ultrasound normal * UA with some blood and WBCs * urine electrolytes are pre-renal * CPK normal * continue supportive therapy (2) Septic shock: Code(s): A41.9 - Sepsis, unspecified organism; R65.21 - Severe sepsis with septic shock Status: Acute Assessment and Plan: * resolved/resolving * stable hemodynamics * follow cultures * on antibiotics (3) Hyponatremia: Code(s): E87.1 - Hypo-osmolality and hyponatremia Status: Acute Assessment and Plan: * relatively stable * evaluation to date: * cortisol level low - cosyntropin resulted in a cortisol level 31 * TSH is normal * CT of the head + chest x-ray are negative * no history of cancer * off PPI * likely due to the renal insufficiency and pre renal factors * has had some mild hyponatremia in the past (4) C. difficile colitis: Code(s): A04.72 - Enterocolitis due to Clostridium difficile, not specified as recurrent Status: Acute Assessment and Plan: * slow improvement * on antibiotics (metronidazole and oral vancomycin) * continue supportive therapy (5) Atrial fibrillation with RVR: Code(s): I48.91 - Unspecified atrial fibrillation Status: Acute Assessment and Plan: * rate control strategy (in NSR currently) * on anticoagulation (6) Acute on chronic anemia: Code(s): D64.9 - Anemia, unspecified Status: Acute Assessment and Plan: * H/H slowly improving * follow the trend (7) Essential hypertension: Code(s): I10 - Essential (primary) hypertension Status: Acute Assessment and Plan: * reasonable control * follow trend of hemodynamics Will continue to follow. Subjective Date/time seen: 07/03/22 12:29 Chart reviewed -- assuming care from Dr. Lozano; no apparent distress voiced on my visit with him; he does report some on/off dysuria for the past couple of days; no other acute events overnight or earlier this morning to report; no distress noted. Exam Narrative: General: WD/WN male in NAD Heart: normal S1 and S2; no rub Lungs: clear to auscultation Abdomen: soft, nontender, nondistended, positive bowel sounds Extremities: no cyanosis or clubbing; trace - 1+ edema Skin: warm and dry Objective Data Vital Signs Vital Signs: Vital Signs Temp Pulse Resp BP Pulse Ox 07/03/22 09:43 118 H 119/69 07/03/22 06:00 36.6 C 94 20 144/79 H 95 07/02/22 21:48 36.6 C 83 20 139/73 97 Intake/Output Intake/Output: Intake & Output 07/01/22 07/02/22 07/02/22 07/03/22 00:59 00:59 23:59 23:59 Intake Total 990 Output Total 735 Balance 255 Meds/Results Medications: Active Medications Generic Name Dose Route Start Last Admin Trade Name Freq PRN Reason Stop Dose Admin Acetaminophen 650 mg 06/14/22 08:01 07/02/22 05:45
--- NOTE | 2022-07-03 12:29 | PM.PNNEP ---
Progress Note: A&P Assessment and Plan (1) ZORAN (acute kidney injury): Code(s): N17.9 - Acute kidney failure, unspecified Status: Acute Assessment and Plan: slow improvement noted with reasonable urine output presumably due to sepsis and C. diff colitis evaluation to date: renal ultrasound normal UA with some blood and WBCs urine electrolytes are pre-renal CPK normal continue supportive therapy (2) Septic shock: Code(s): A41.9 - Sepsis, unspecified organism; R65.21 - Severe sepsis with septic shock Status: Acute Assessment and Plan: resolved/resolving stable hemodynamics follow cultures on antibiotics (3) Hyponatremia: Code(s): E87.1 - Hypo-osmolality and hyponatremia Status: Acute Assessment and Plan: relatively stable evaluation to date: cortisol level low - cosyntropin resulted in a cortisol level [address] of the head + chest x-ray are negative no history of cancer off PPI likely due to the renal insufficiency and pre renal factors has had some mild hyponatremia in the past (4) C. difficile colitis: Code(s): A04.72 - Enterocolitis due to Clostridium difficile, not specified as recurrent Status: Acute Assessment and Plan: slow improvement on antibiotics (metronidazole and oral vancomycin) continue supportive therapy (5) Atrial fibrillation with RVR: Code(s): I48.91 - Unspecified atrial fibrillation Status: Acute Assessment and Plan: rate control strategy (in NSR currently) on anticoagulation (6) Acute on chronic anemia: Code(s): D64.9 - Anemia, unspecified Status: Acute Assessment and Plan: H/H slowly improving follow the trend (7) Essential hypertension: Code(s): I10 - Essential (primary) hypertension Status: Acute Assessment and Plan: reasonable control follow trend of hemodynamics Will continue to follow. Subjective Date/time seen: 07/03/22 12:29 Chart reviewed -- assuming care from Dr. Lozano; no apparent distress voiced on my visit with him; he does report some on/off dysuria for the past couple of days; no other acute events overnight or earlier this morning to report; no distress noted. Exam Narrative: General: WD/WN male in NAD Heart: normal S1 and S2; no rub Lungs: clear to auscultation Abdomen: soft, nontender, nondistended, positive bowel sounds Extremities: no cyanosis or clubbing; trace - 1+ edema Skin: warm and dry Objective Data Vital Signs Vital Signs: Vital Signs Temp Pulse Resp BP Pulse Ox 07/03/22 09:43 118 H 119/69 07/03/22 06:00 36.6 C 94 20 144/79 H 95 07/02/22 21:48 36.6 C 83 20 139/73 97 Intake/Output Intake/Output: Intake & Output 07/01/22 07/02/22 07/02/22 07/03/22 00:59 00:59 23:59 23:59 Intake Total 990 Output Total 735 Balance 255 Meds/Results Medications: Active Medications Generic Name Dose Route Start Last Admin Trade Name Freq PRN Reason Stop Dose Admin Acetaminophen 650 mg 06/14/22 08:01 07/02/22 05:45 Acetaminophen 325 Mg Tablet PO 650 mg Q4H PRN Administration Mild Pain (1-3) or Fever Albuterol 1 puff 06/14/22 00:07 Albuterol Sulfate (*Sp) Aerosol 1 Puff INHALATION QID PRN Shortness Of Breath Apixaban 2.5 mg 06/27/22 11:45 07/03/22 09:10 Apixaban 2.5 Mg Tablet PO 2.5 mg Q12HR NEHA Administration Atorvastatin Calcium 10 mg 06/14/22 00:30 07/02/22 21:05 Atorvastatin 10 Mg Tablet PO 10 mg HS NEHA Administration Budesonide 6 mg 06/14/22 00:07 06/21/22 09:48 Budesonide 3 Mg Cap.Sr.24h PO 6 mg DAILY PRN Administration Allergy Symptoms Bumetanide 1 mg 06/29/22 09:00 07/03/22 17:13 Bumetanide Inj 1 Mg/4 Ml Vial IV PUSH 1 mg BID NEHA Administration Calcium Carbonate 500 mg 06/14/22 09:00 07/03/22 09:10 Calcium
[2022-07-03] MEDS: POTASSIUM CHLORIDE 20 MEQ TABLET 40 MEQ PO (13:59)
[2022-07-03 15:12] VITALS: BP 121/72; PULSE 80; RESP 16; TEMP 36.5; O2SAT 96
[2022-07-03] MEDS: MINERAL OIL/WHITE PETROLATUM OINTMENT 1 APPLIC EACH EYE (18:37)
[2022-07-03 20:31] LABS: Appearance Urine Clear (Clear); Bilirubin Urine Negative (Negative); Blood Urine 2+ (Negative); Color Urine Yellow (Yellow); Glucose Urine UA Negative (Negative); Ketones Urine Negative (Negative); Leukocyte Esterase Ur Negative LEU/UL (Negative); Nitrate Urine Negative (Negative); Protein Urine 1+ mg/dL (Negative); Urobilinogen Urine 0.2 mg/dL (<2.0)
[2022-07-03 20:47] LABS: Add Urine Microscopic? YES
[2022-07-03 21:16] LABS: Mucus Urine Rare /lpf; WBC Urine 0-3 /hpf
[2022-07-03 21:32] VITALS: BP 131/72; PULSE 93; RESP 20; TEMP 37.2; O2SAT 97
[2022-07-03] MEDS: ATORVASTATIN 10 MG TABLET PO (22:13)
[2022-07-03] MEDS: CLOBETASOL PROPIONATE 0.05% CREAM 15 GM 1 APPLIC TOPICAL (22:13)
[2022-07-03] MEDS: TAMSULOSIN HCL 0.4 MG CAPSULE PO (22:13)
[2022-07-04] MEDS: VANCOMYCIN ORAL 500 MG/10 ML SYRUP PO ×3 (00:15→13:03)
[2022-07-04] MEDS: metroNIDAZOLE 500 MG/ISO 100ML 500 MG/100 ML BAG 100 MG IVPB (05:45)
[2022-07-04] MEDS: LEVOTHYROXINE SODIUM 50 MCG TABLET PO (05:45)
[2022-07-04 05:59] VITALS: BP 131/75; PULSE 105; RESP 20; TEMP 36.4; O2SAT 97
[2022-07-04 06:14] LABS: Basophils Percent Auto 0.5 % (0.2-1.2); Eosinophils Absolute Auto 0.1 K/mm3 (0-0.3); Eosinophils Percent Auto 2.8 % (0-4.4); Hematocrit 26.1 % (42.0-52.0); Hemoglobin 8.8 g/dL (14.0-18.0); Immature Granulocyte Absolute 0.03 K/mm3 (0.00-0.031); Immature Granulocyte Percent A 0.7 % (0-0.5); Immature Platelet Fraction Pct 4.9 % (0.9-11.2); Lymphocytes Absolute Auto 0.79 K/mm3 (0.9-3.2); Lymphocytes Percent Auto 18.7 % (18.3-44.2); Mean Corpuscular HGB Conc 33.7 g/dl (32-36); Mean Corpuscular Hemoglobin 34.2 pg (26-34); Mean Corpuscular Volume 101.6 fl (80-100); Mean Platelet Volume 10.4 fl (7.4-10.4); Monocytes Absolute Auto 0.4 K/mm3 (0.1-0.6); Monocytes Percent Auto 8.3 % (2.6-8.5); Neutrophils Absolute Auto 2.9 K/mm3 (1.3-6.7); Platelet Count Result 67 k/mm3 (150-375); Red Blood Count 2.57 M/mm3 (4.6-6.20); Red Cell Distribution Width 16.2 % (11.5-14.5); White Blood Count 4.2 K/mm3 (4.5-10.0)
[2022-07-04 06:22] LABS: Anion Gap 9 mmol/L (8-16); Blood Urea Nitrogen 30 mg/dL (9-20); Calcium 7.7 mg/dL (8.4-10.2); Carbon Dioxide 26 mmol/L (22-30); Chloride 96 mmol/L (98-107); Estimated CRCL calculation 24 ml/min; Estimated Glomerular Filt Rate 27; Glucose 106 mg/dL (65-110); Magnesium 1.4 mg/dL (1.6-2.3); Potassium 3.4 mmol/L (3.4-5.0); Sodium 131 mmol/L (137-145)
[2022-07-04] MEDS: BUMETANIDE INJ 1 MG/4 ML VIAL IV PUSH (08:49)
[2022-07-04] MEDS: APIXABAN 2.5 MG TABLET PO (08:49)
[2022-07-04] MEDS: CALCIUM CARBONATE (OSCAL) 500 MG TABLET PO (08:49)
[2022-07-04] MEDS: SODIUM CHLORIDE 1 GM TABLET PO (08:50)
[2022-07-04] MEDS: SACCHAROMYCES BOULARDII 250 MG CAPSULE PO ×2 (08:50→13:04)
[2022-07-04] MEDS: MAGNESIUM OXIDE 200 MG TABLET PO (08:50)
[2022-07-04] MEDS: FAMOTIDINE 20 MG TABLET PO (08:50)
[2022-07-04] MEDS: FLUTICASONE PROPIONATE 0.05% NA SPR 16 GM BTL (*BKC) 2 SPRAY NASAL (08:50)
[2022-07-04] MEDS: guaiFENesin 600 MG/DEXTROMETHORPHAN 30 MG SR TAB 12 HR 1 TAB PO (08:50)
[2022-07-04] MEDS: MIDODRINE HCL 2.5 MG TABLET PO ×2 (08:50→13:04)
[2022-07-04] MEDS: MINERAL OIL/WHITE PETROLATUM OINTMENT 1 APPLIC EACH EYE (08:50)
[2022-07-04] MEDS: CLOBETASOL PROPIONATE 0.05% CREAM 15 GM 1 APPLIC TOPICAL (08:50)
[2022-07-04] MEDS: SOLIFENACIN 5 MG TABLET 10 MG PO (08:51)
[2022-07-04] MEDS: ACETAMINOPHEN 325 MG TABLET 650 MG PO (08:55)
--- NOTE | 2022-07-04 09:57 | PC.NURSE ---
Per , ok for pt to be discharged from Neph standpoint.
--- NOTE | 2022-07-04 10:07 | P.PNNP_ITS ---
Progress Note: A&P Assessment and Plan (1) ZORAN (acute kidney injury): Code(s): N17.9 - Acute kidney failure, unspecified Status: Acute Assessment and Plan: * slow improvement noted with reasonable urine output * presumably due to sepsis and C. diff colitis * evaluation to date: * renal ultrasound normal * UA with some blood and WBCs * urine electrolytes are pre-renal * CPK normal * okay to switch bumex to oral on discharge * continue supportive therapy (2) Septic shock: Code(s): A41.9 - Sepsis, unspecified organism; R65.21 - Severe sepsis with septic shock Status: Acute Assessment and Plan: * resolved/resolving * stable hemodynamics * follow cultures * on antibiotics (3) Hyponatremia: Code(s): E87.1 - Hypo-osmolality and hyponatremia Status: Acute Assessment and Plan: * relatively stable * evaluation to date: * cortisol level low - cosyntropin resulted in a cortisol level 31 * TSH is normal * CT of the head + chest x-ray are negative * no history of cancer * off PPI * likely due to the renal insufficiency and pre renal factors * has had some mild hyponatremia in the past (4) C. difficile colitis: Code(s): A04.72 - Enterocolitis due to Clostridium difficile, not specified as recurrent Status: Acute Assessment and Plan: * slow improvement * on antibiotics (metronidazole and oral vancomycin) * continue supportive therapy (5) Atrial fibrillation with RVR: Code(s): I48.91 - Unspecified atrial fibrillation Status: Acute Assessment and Plan: * rate control strategy (in NSR currently) * on anticoagulation (6) Acute on chronic anemia: Code(s): D64.9 - Anemia, unspecified Status: Acute Assessment and Plan: * H/H slowly improving * follow the trend (7) Essential hypertension: Code(s): I10 - Essential (primary) hypertension Status: Acute Assessment and Plan: * reasonable control * follow trend of hemodynamics Not opposed to discharge from renal perspective; ok to continue oral bumex qday on discharge but would check BMP in about a week to ensure kidney function continues to improve; he can follow-up with Dr. Lozano if renal function does not return to baseline. Will continue to follow. Subjective Date/time seen: 07/04/22 10:07 Overall, seems to be doing reasonably well; noted plans for possible discharge today; no acute issues/events overnight or earlier this morning; no apparent distress voiced at the time of my visit. Exam Narrative: General: WD/WN male in NAD Heart: normal S1 and S2; no rub Lungs: clear to auscultation Abdomen: soft, nontender, nondistended, positive bowel sounds Extremities: no cyanosis or clubbing; trace - 1+ edema Skin: warm and intact Objective Data Vital Signs Vital Signs: Vital Signs Temp Pulse Resp BP Pulse Ox O2 Del Method 07/04/22 08:00 Room Air 07/04/22 05:59 36.4 C 105 H 20 131/75 97 07/03/22 21:32 37.2 C 93 20 131/72 97 07/03/22 15:12 36.5 C 80 16 121/72 96 Intake/Output Intake/Output: Intake & Output 07/02/22 07/02/22 07/03/22 07/04/22 00:59 23:59 23:59 23:59 Intake Total 1210 540
--- NOTE | 2022-07-04 10:07 | PM.PNNEP ---
Progress Note: A&P Assessment and Plan (1) ZORAN (acute kidney injury): Code(s): N17.9 - Acute kidney failure, unspecified Status: Acute Assessment and Plan: slow improvement noted with reasonable urine output presumably due to sepsis and C. diff colitis evaluation to date: renal ultrasound normal UA with some blood and WBCs urine electrolytes are pre-renal CPK normal okay to switch bumex to oral on discharge continue supportive therapy (2) Septic shock: Code(s): A41.9 - Sepsis, unspecified organism; R65.21 - Severe sepsis with septic shock Status: Acute Assessment and Plan: resolved/resolving stable hemodynamics follow cultures on antibiotics (3) Hyponatremia: Code(s): E87.1 - Hypo-osmolality and hyponatremia Status: Acute Assessment and Plan: relatively stable evaluation to date: cortisol level low - cosyntropin resulted in a cortisol level [address] of the head + chest x-ray are negative no history of cancer off PPI likely due to the renal insufficiency and pre renal factors has had some mild hyponatremia in the past (4) C. difficile colitis: Code(s): A04.72 - Enterocolitis due to Clostridium difficile, not specified as recurrent Status: Acute Assessment and Plan: slow improvement on antibiotics (metronidazole and oral vancomycin) continue supportive therapy (5) Atrial fibrillation with RVR: Code(s): I48.91 - Unspecified atrial fibrillation Status: Acute Assessment and Plan: rate control strategy (in NSR currently) on anticoagulation (6) Acute on chronic anemia: Code(s): D64.9 - Anemia, unspecified Status: Acute Assessment and Plan: H/H slowly improving follow the trend (7) Essential hypertension: Code(s): I10 - Essential (primary) hypertension Status: Acute Assessment and Plan: reasonable control follow trend of hemodynamics Not opposed to discharge from renal perspective; ok to continue oral bumex qday on discharge but would check BMP in about a week to ensure kidney function continues to improve; he can follow-up with Dr. Lozano if renal function does not return to baseline. Will continue to follow. Subjective Date/time seen: 07/04/22 10:07 Overall, seems to be doing reasonably well; noted plans for possible discharge today; no acute issues/events overnight or earlier this morning; no apparent distress voiced at the time of my visit. Exam Narrative: General: WD/WN male in NAD Heart: normal S1 and S2; no rub Lungs: clear to auscultation Abdomen: soft, nontender, nondistended, positive bowel sounds Extremities: no cyanosis or clubbing; trace - 1+ edema Skin: warm and intact Objective Data Vital Signs Vital Signs: Vital Signs Temp Pulse Resp BP Pulse Ox O2 Del Method 07/04/22 08:00 Room Air 07/04/22 05:59 36.4 C 105 H 20 131/75 97 07/03/22 21:32 37.2 C 93 20 131/72 97 07/03/22 15:12 36.5 C 80 16 121/72 96 Intake/Output Intake/Output: Intake & Output 07/02/22 07/02/22 07/03/22 07/04/22 00:59 23:59 23:59 23:59 Intake Total 1210 540 Output Total 735 300 Balance 475 240 Meds/Results Medications: Active Medications Generic Name Dose Route Start Last Admin Trade Name Freq PRN Reason Stop Dose Admin Acetaminophen 650 mg 06/14/22 08:01 07/04/22 08:55 Acetaminophen 325 Mg Tablet PO 650 mg Q4H PRN Administration Mild Pain (1-3) or Fever Albuterol 1 puff 06/14/22 00:07 Albuterol Sulfate (*Sp) Aerosol 1 Puff INHALATION QID PRN Shortness Of Breath Apixaban 2.5 mg 06/27/22 11:45 07/04/22 08:49 Apixaban 2.5 Mg Tablet PO 2.5 mg Q12HR NEHA Administration Atorvastatin Calcium 10 mg 06/14/22 00:30 07/03/22 22:13 Atorvastatin 10 Mg Tablet PO 10 mg HS NEHA Administration Budesonide 6
[2022-07-04] MEDS: MAGNESIUM SULFATE 3GM/D5W100ML 3 GM/100 ML BAG IVPB (13:06)
[2022-07-04] MEDS: POTASSIUM CHLORIDE 20 MEQ PACKET (FOR LIQUID) 40 MEQ PO (13:11)
[2022-07-04 14:00] VITALS: BP 113/60; PULSE 82; RESP 14; TEMP 36.2; O2SAT 100
--- NOTE | 2022-07-04 14:30 | PM.DS ---
DS: Admitting Diagnosis Discharge Date 07/04/22 Admitting Diagnosis (1) Septic shock: ?Code(s): A41.9 - Sepsis, unspecified organism; R65.21 - Severe sepsis with septic shock ?Status:?Acute (2) Acute UTI: ?Code(s): N39.0 - Urinary tract infection, site not specified ?Status:?Acute (3) ZORAN (acute kidney injury): ?Code(s): N17.9 - Acute kidney failure, unspecified ?Status:?Acute (4) Acute on chronic anemia: ?Code(s): D64.9 - Anemia, unspecified ?Status:?Acute (5) Thrombocytopenia: ?Code(s): D69.6 - Thrombocytopenia, unspecified ?Status:?Acute (6) BPH without obstruction/lower urinary tract symptoms: ?Code(s): N40.0 - Benign prostatic hyperplasia without lower urinary tract symptoms ?Status:?Acute DS: Discharge Diagnosis Discharge Diagnosis (1) Anemia: Code(s): D64.9 - Anemia, unspecified Status: Acute (2) Edema of both upper arms: Code(s): R60.0 - Localized edema Status: Acute (3) Chest pain: Code(s): R07.9 - Chest pain, unspecified Status: Acute (4) C. difficile colitis: Code(s): A04.72 - Enterocolitis due to Clostridium difficile, not specified as recurrent Status: Acute (5) Diarrhea: Code(s): R19.7 - Diarrhea, unspecified Status: Acute (6) Septic shock: Code(s): A41.9 - Sepsis, unspecified organism; R65.21 - Severe sepsis with septic shock Status: Acute (7) ZORAN (acute kidney injury): Code(s): N17.9 - Acute kidney failure, unspecified Status: Acute (8) Acute on chronic anemia: Code(s): D64.9 - Anemia, unspecified Status: Acute (9) Bacteremia: Code(s): R78.81 - Bacteremia Status: Acute (10) Diastolic heart failure: Code(s): I50.30 - Unspecified diastolic (congestive) heart failure Status: Acute (11) Atrial fibrillation: Code(s): I48.91 - Unspecified atrial fibrillation Status: Acute (12) Essential hypertension: Code(s): I10 - Essential (primary) hypertension Status: Acute (13) Hypothyroidism, unspecified: Code(s): E03.9 - Hypothyroidism, unspecified Status: Acute (14) Thrombocytopenia: Code(s): D69.6 - Thrombocytopenia, unspecified Status: Acute (15) BPH without obstruction/lower urinary tract symptoms: Code(s): N40.0 - Benign prostatic hyperplasia without lower urinary tract symptoms Status: Acute (16) Acute UTI: Code(s): N39.0 - Urinary tract infection, site not specified Status: Acute (17) Sepsis: Qualifiers: Sepsis acute organ dysfunction status: with acute organ dysfunction Sepsis type: sepsis due to unspecified organism Severe sepsis acute organ dysfunction type: acute renal failure Severe sepsis shock status: without septic shock Code(s): A41.9 - Sepsis, unspecified organism Status: Acute DS: Summary Hospital Course Reason for hospitalization: Chief Complaint: Fall, slow to respond Narrative: 82-year-old male with a past medical history of aortic valve replacement, moderate pulmonary hypertension, hypothyroidism, BPH and essential hypertension who presented to the ER with fall and change in mental status.? Patient is reportedly oriented but slow to respond.? At the time of my evaluation the patient is alert oriented x4 and responding appropriately.? Source of information from past medical records and patient report.? The patient is a fair historian.? The patient reported that he had not felt well for a couple of days.? He has had decreased appetite and had vomited once with dinner yesterday.? He reports feeling extremely thirsty currently.? He has not had any further vomiting since admission.? He also reports increased urinary frequency and dysuria similar to when he had prior urinary tract infections.? He is on Pyridium chronically for dysuria.? He reports that his urine is always discolored.? He has not noti
[2022-07-07 15:08] LABS: Protein,total, 24 Hr Ur 629 mg/24h
== END 2022-07-04 15:10 | disposition home health service (06) | DRG 871 ==
LOC: ANHED 16:00 → ANHICU 19:32 → ANH3MEDSUR 06-14 18:02
PROVIDERS: Chiropractor; Internal Medicine; Internal Medicine Cardiovascular Disease; Internal Medicine Nephrology; Admitting Provider Student in an Organized Health Care Education/Training Program; Emergency Provider Preventive Medicine Aerospace Medicine; PCP Family Medicine; Visit Provider Hospitalist
PROC: B24BZZ4 Ultrasonography of Heart with Aorta, Transesophageal (ICD-10-PCS; CPT 93312; principal; 2022-06-20 09:30)
PROC: 5A2204Z Restoration of Cardiac Rhythm, Single (ICD-10-PCS; 2022-06-20 09:30)
DX: A41.02 Sepsis due to Methicillin resistant Staphylococcus aureus (principal); I50.33 Acute on chronic diastolic (congestive) heart failure; R65.21 Severe sepsis with septic shock; N17.9 Acute kidney failure, unspecified; A04.72 Enterocolitis due to Clostridium difficile, not specified as recurrent; I48.92 Unspecified atrial flutter; E87.1 Hypo-osmolality and hyponatremia; E46 Unspecified protein-calorie malnutrition; D64.9 Anemia, unspecified; N40.0 Benign prostatic hyperplasia without lower urinary tract symptoms; E86.0 Dehydration; E03.9 Hypothyroidism, unspecified; I27.20 Pulmonary hypertension, unspecified; E78.2 Mixed hyperlipidemia; K21.9 Gastro-esophageal reflux disease without esophagitis; I25.10 Atherosclerotic heart disease of native coronary artery without angina pectoris; I11.0 Hypertensive heart disease with heart failure; K80.80 Other cholelithiasis without obstruction; I48.91 Unspecified atrial fibrillation; R07.89 Other chest pain; J02.9 Acute pharyngitis, unspecified; D69.59 Other secondary thrombocytopenia; R19.5 Other fecal abnormalities; T83.091A Other mechanical complication of indwelling urethral catheter, initial encounter; Z95.1 Presence of aortocoronary bypass graft; Z95.3 Presence of xenogenic heart valve; Z96.653 Presence of artificial knee joint, bilateral; Z84.1 Family history of disorders of kidney and ureter; Z82.49 Family history of ischemic heart disease and other diseases of the circulatory system; Z87.891 Personal history of nicotine dependence; Z79.51 Long term (current) use of inhaled steroids; Z79.899 Other long term (current) drug therapy; Z88.2 Allergy status to sulfonamides; Z20.822 Contact with and (suspected) exposure to COVID-19; Z86.15 Personal history of latent tuberculosis infection; Z68.31 Body mass index [BMI] 31.0-31.9, adult
CPT/HCPCS: 36415; 36430; 36556; 51701; 70450; 71045; 71250; 74018; 74176; 76775; 78227; 80048; 80053; 80069; 80202; 81001; 82274; 82533; 82550; 82565; 82570; 82607; 82728; 82746; 83010; 83540; 83550; 83605; 83615; 83735; 83880; 83883; 84100; 84145; 84300; 84443; 84484; 85025; 85027; 85049; 85055; 85380; 85384; 85610; 85652; 85730; 85999; 86022; 86038; 86039; 86160; 86162; 86334; 86335; 86850; 86900; 86901; 86920; 87040; 87070; 87075; 87077; 87086; 87147; 87186; 87205; 87493; 87502; 92960; 93005; 93306; 93312; 93320; 93325; 93970; 96361; 96365; 97110; 97116; 97161; 97164; 97165; 97166; 97530; 97535; 99285; A9270; A9537; C1751; C9803; G0378; J0610; J0696; J0834; J0878; J1940; J2250; J2270; J2310; J2805; J3010; J3370; J3475; J3480; J7030; J7040; J7050; P9016; P9047; Q9957; U0003; U0005

== ENCOUNTER 2022-07-08 18:02 | Inpatient (IN) | payer MEDICARE, OTHER, SELFPAY ==
[2022-07-08] VITALS (18 sets, daily range): BP systolic 110–161; BP diastolic 73–124; PULSE 112–134; RESP 15–30; TEMP 36.2–39.4; O2SAT 93–100; BMI 28.6
--- NOTE | ~2022-07-08 | CT_ITS ---
EXAMINATION: CT abdomen pelvis wo con DATE: 07/08/2022 20:35 INDICATION: Nausea, diarrhea, fever, lethargy TECHNIQUE: Computed tomography (CT) of the abdomen and pelvis was performed without intravenous contr ast. Automated exposure control and iterative reconstruction technique were employed. Exam dose: 621 .52 mGy-cm total exam DLP. COMPARISON: 06/14/2022 CT chest abdomen pelvis FINDINGS: Status post sternotomy and aortic valve replacement. Prominent mitral annulus calcification . Normal heart size. No pericardial effusion. There are moderate bilateral dependent pleural effusions. There is associated compressive atelectasis at both lower lobes There are multiple small stones in the dependent aspect of the gallbladder 11 mm lateral segment left hepatic cyst. No bile duct dilatation. Spleen measures within upper limits of normal size. No pancreatic mass lesion, calcification or ductal dilatation. No adrenal mass lesion. Approximately 3.2 cm exophytic right renal cyst. 1.8 cm upper pole exophytic left renal cyst. Probabl e 1 cm upper pole left renal cyst and approximately 1.6 cm mid left renal cyst. Indeterminate approxi mately 1.4 cm exophytic anterior lower pole left renal lesion. This is a limited noncontrast examination of the kidneys. Prominent perinephric stranding is noted bilaterally. No urinary tract calculus or hydroureteronephro sis. The urinary bladder appears unremarkable. Moderate prostate enlargement. Up to 3.5 cm infrarenal abdominal aortic aneurysm. There is calcification ectasia of the iliac arteri es. No bowel obstruction or intraperitoneal free air. Diverticulosis of the colon; no CT evidence of dive rticulitis. Small fat-containing left inguinal hernia. Diffuse idiopathic skeletal hyperostosis of the thoracic spine. Severe degenerative disc disease is noted particularly at L3-4, L4-5 and L5-S1, with mild retrolisthe sis at each of these levels. IMPRESSION: Cholelithiasis 1 mm lateral segment left hepatic cyst Bilateral renal cysts; limited evaluation of the kidneys without IV contrast material. Bilateral perinephric stranding 3.5 cm infrarenal abdominal aortic aneurysm Diverticulosis of the colon Moderate bilateral pleural effusions, increased since 06/14/2022 Reviewed, dictated and finalized at [facility]. Reviewed, dictated and finalized at location A. ERTY CONSULTANT IMPRESSION: Cholelithiasis 1 mm lateral segment left hepatic cyst Bilateral renal cysts; limited evaluation of the kidneys without IV contrast heather porter. Bilateral perinephric stranding 3.5 cm infrarenal abdominal aortic aneurysm Diverticulosis of the colon Moderate bilateral pleural effusions, increased since 06/14/2022
--- NOTE | ~2022-07-08 | XR_ITS ---
EXAMINATION: [id number] DATE: 07/10/2022 14:40 INDICATION: Right pleural effusion status post thoracentesis. TECHNIQUE: A single frontal view of the chest was obtained. COMPARISON: Chest single view 07/08/2022, CT abdomen and pelvis 07/08/2022 FINDINGS: There are airspace opacities in the lower lung zones. There is a small left pleural effusio n. No pneumothorax. The heart size is normal. There are changes of aortic valve replacement. IMPRESSION: 1. Airspace opacities in the lower lung zones with worsening on the left, consistent with atelectasis or less likely pneumonia. 2. Stable small left pleural effusion. Reviewed, dictated and finalized at location A. STAGER IMPRESSION: 1. Airspace opacities in the lower lung zones with worsening on the left, consi stent with atelectasis or less likely pneumonia. 2. Stable small left pleural effusion.
--- NOTE | ~2022-07-08 | XR_ITS ---
EXAMINATION: XR chest 1V portable Exam Date/Time: 07/16/2022 8:25 SERVICE DESK LEAD HISTORY: SOB Comparison: 07/13/2022. RESULT: Lines, tubes, and devices: Intact sternotomy wires. Cardiac valve replacement. Lungs and pleura: Diffuse linear and reticular opacities with vascular indistinctness and cuffing. S ubsegmental airspace disease in the bilateral lower lungs, with bilateral angle blunting. Cardiomediastinal silhouette: Stable. Other: No acute osseous or upper abdominal finding. IMPRESSION: Moderate interstitial edema with bibasilar atelectasis/consolidation and small bilateral effusions. Reviewed, dictated and finalized at location K. ICE DESK LEAD
--- NOTE | ~2022-07-08 | US_ITS ---
EXAMINATION: US thoracentesis DATE: 07/10/2022 15:17 INDICATION: pleural effusion TECHNIQUE: The procedure and its risks, benefits, and alternatives were discussed with the patient. P otential risks discussed included bleeding, infection, and pneumothorax. The patient understood the r isks and agreed to proceed. The skin was prepped and draped in sterile fashion. 1% lidocaine was used for local anesthesia. Under ultrasound guidance, a 5 Fr catheter with trochar was advanced into the right pleural effusion. Fluid was aspirated. The catheter was removed, and a dressing was applied. Th ere were no immediate complications. FINDINGS: Ultrasound images demonstrate a right pleural effusion and the catheter within the fluid. IMPRESSION: 1. Successful ultrasound-guided thoracentesis yielding 800 mL of orange-red fluid. Reviewed, dictated and finalized at location A. E CARE NURSING ASSISTANT IMPRESSION: 1. Successful ultrasound-guided thoracentesis yielding 800 mL of orange-red fl uid.
--- NOTE | ~2022-07-08 | XR_ITS ---
EXAMINATION: XR chest 1V portable Exam Date/Time: 07/16/2022 14:20 SOFTWARE DEVELOPMENT ENGINEER HISTORY: INCREASED shortness of breath, NEW ONSET COUGH Comparison: Same date at 8:28 AM and 07/13/2022. RESULT: Lines, tubes, and devices: Intact sternotomy wires. Cardiac valve replacement. Lungs and pleura: Unchanged subsegmental areas of bilateral lower lung airspace disease, bilateral a ngle blunting, and diffuse linear and reticular opacities, with cuffing and indistinct vessels. Cardiomediastinal silhouette: Stable. Other: No acute osseous or upper abdominal finding. IMPRESSION: Unchanged moderate interstitial edema with bibasilar atelectasis/consolidation and small bilateral ef fusions. Reviewed, dictated and finalized at location K. WARE DEVELOPMENT ENGINEER IMPRESSION: Unchanged moderate interstitial edema with bibasilar atelectasis/consolidation and small bilateral effusions.
--- NOTE | ~2022-07-08 | XR_ITS ---
EXAMINATION: XR chest 1V portable Exam Date/Time: 07/23/2022 16:00 MIDDLEWARE SYSTEMS ARCHITECT HISTORY: pleural effusions Comparison: 07/22/2022. RESULT: Lines, tubes, and devices: Right upper extremity PICC remains in good position. Intact sternotomy wi res. Abandoned epicardial wire. Cardiac valve replacement. Lungs and pleura: Somewhat improved aeration and decreased vascular congestion. Persistent left medi al basal opacity. Persistent linear opacities in the right midlung. Minimal left and mild right angle blunting. Cardiomediastinal silhouette: Stable. Other: No acute osseous or upper abdominal finding. IMPRESSION: Improved aeration. Persistent left medial basal atelectasis/consolidation. Right midlung discoid atel ectasis. Small right and trace left pleural effusions. Reviewed, dictated and finalized at location K. LEWARE SYSTEMS ARCHITECT IMPRESSION: Improved aeration. Persistent left medial basal atelectasis/consolidation. Righ t midlung discoid atelectasis. Small right and trace left pleural effusions.
--- NOTE | ~2022-07-08 | XR_ITS ---
EXAMINATION: XR chest 1V portable INDICATION: Cough TECHNIQUE: Portable AP chest at 1244 hours COMPARISON: 07/10/2022 FINDINGS: There are small pleural effusions. The heart size is normal. There is no pneumothorax. Ther e are minimal airspace opacities of the lung bases. Changes of cardiac valve surgery are noted. IMPRESSION: 1. Small pleural effusions. 2. Bibasilar airspace opacities, consistent with atelectasis versus pneumonia. Reviewed, dictated and finalized at location F. MENDER
--- NOTE | ~2022-07-08 | XR_ITS ---
XR chest PICC line DATE: 07/21/2022 14:14 INDICATION: PICC line placement TECHNIQUE: Portable AP chest on 07/21/2022 1405 hours COMPARISON: 07/20/2022 portable AP chest at 0541 hours FINDINGS: Status post sternotomy and cardiac valve replacement. There is mild pulmonary vascular congestion and redistribution, moderately improved since 07/20/2022. There are bilateral lower lung infiltrates and/or atelectasis. Small bilateral pleural effusions. There is aortic calcification. There is a right upper extremity PICC catheter with tip overlying SVC. IMPRESSION: Right upper extremity PICC catheter tip overlying SVC Persistent bilateral predominantly lower lung infiltrates and mild pleural effusions Mild pulmonary vascular congestion, moderately improved since 07/20/2022 Reviewed, dictated and finalized at [facility]. Reviewed, dictated and finalized at location A. CLING TECHNICIAN IMPRESSION: Right upper extremity PICC catheter tip overlying SVC Persistent bilateral predominantly lower lung infiltrates and mild pleural effu sions Mild pulmonary vascular congestion, moderately improved since 07/20/2022
--- NOTE | ~2022-07-08 | XR_ITS ---
EXAMINATION: XR chest 1V portable Exam Date/Time: 07/16/2022 20:18 MID LEVEL JAVA DEVELOPER HISTORY: worsening SOB Comparison: Same date at 2:20 PM. FINDINGS/IMPRESSION: Slightly improved interstitial edema. Worsening bibasilar atelectasis/consolidation. Stable small kelli ateral effusions. Reviewed, dictated and finalized at [facility] K. LEVEL JAVA DEVELOPER
--- NOTE | ~2022-07-08 | XR_ITS ---
EXAMINATION: XR chest 1V portable DATE: 07/18/2022 05:53 INDICATION: Shortness of breath. TECHNIQUE: A single frontal view of the chest was obtained. COMPARISON: Chest single view 07/16/2022 FINDINGS: There are small pleural effusions. There are airspace opacities in the perihilar regions an d at the lung bases. No pneumothorax. The heart size is normal. There are changes of aortic valve rep lacement. IMPRESSION: 1. Worsened diffuse lung disease, consistent with pulmonary edema versus pneumonia. 2. Stable small pleural effusions. Reviewed, dictated and finalized at location A. ETRICS INSTRUCTOR IMPRESSION: 1. Worsened diffuse lung disease, consistent with pulmonary edema versus pneumo zulma. 2. Stable small pleural effusions.
--- NOTE | ~2022-07-08 | XR_ITS ---
XR chest 1V portable DATE: 07/22/2022 06:08 INDICATION: Shortness of breath TECHNIQUE: Portable AP chest on 07/22/2022 at 0551 hours COMPARISON: 07/21/2022 portable AP chest at 1408 hours FINDINGS: Right upper extremity PIC catheter tip overlies the superior vena cava. Status post sternotomy and cardiac valve replacement. Heart size appears within normal limits. Aortic calcification. There are bilateral probably central and lower lung zone infiltrates and probably increased retrocard iac density on the left consistent with left lower lobe atelectasis and/or consolidation. There is mild bilateral pleural effusions, right greater than left, with some probable fluid in the m inor fissure. IMPRESSION: Persistent bilateral infiltrates and pleural effusions; little interval change since 06/28 Reviewed, dictated and finalized at location A. LOPMENTAL PSYCHOLOGIST IMPRESSION: Persistent bilateral infiltrates and pleural effusions; little inte rval change since 07/21/2022
--- NOTE | ~2022-07-08 | XR_ITS ---
XR chest 1V portable DATE: 07/20/2022 06:00 INDICATION: Shortness of breath, congestive heart failure, sepsis TECHNIQUE: Portable upright AP chest on 07/16/2022 at 0541 hours COMPARISON: 07/18/2022 portable AP chest views at 0538 0539 hours FINDINGS: Status post sternotomy and cardiac valve replacement. Pulmonary vascular congestion and redistribution, prominence of the minor fissure, bilateral pleural effusions and bilateral predominately central and lower lung zone infiltrates. The infiltrates may be due to pulmonary edema and/or pneumonia and are are mildly increased since 07/18/2022. Aortic arch calcification. IMPRESSION: Prominent bilateral predominately central and lower lung zone infiltrates, increased sinc e 07/18/2022, with bilateral mild pleural effusions. Findings suggest pulmonary edema. Pneumonia is n ot excluded Infiltrates are mildly increased since 07/18 Reviewed, dictated and finalized at location A. OLOGY ASSISTANT IMPRESSION: Prominent bilateral predominately central and lower lung zone infil trates, increased since 07/18/2022, with bilateral mild pleural effusions. Find ings suggest pulmonary edema. Pneumonia is not excluded Infiltrates are mildly increased since 07/18
--- NOTE | ~2022-07-08 | US_ITS ---
EXAMINATION: US venous doppler [facility] DATE: 07/13/2022 15:51 INDICATION: Bilateral lower limb edema TECHNIQUE: Chang scale images without and with compression and Doppler images of the bilateral lower e xtremity veins were obtained. COMPARISON: 06/16/2022 FINDINGS: The right common femoral vein, profunda femoral vein, femoral vein, popliteal vein, peroneal trunk, p osterior tibial veins, and greater saphenous vein are patent. The left common femoral vein, profunda femoral vein, femoral vein, popliteal vein, peroneal trunk, po sterior tibial veins, and greater saphenous vein are patent. IMPRESSION: 1. Patent bilateral lower extremity veins. No evidence of deep venous thrombosis. Reviewed, dictated and finalized at location F. ONENT DESIGN ENGINEER IMPRESSION: 1. Patent bilateral lower extremity veins. No evidence of deep venous thrombosi s.
--- NOTE | ~2022-07-08 | US_ITS ---
EXAMINATION: US venous doppler [facility] DATE: 07/13/2022 15:50 INDICATION: Bilateral upper limb edema TECHNIQUE: Grayscale ultrasound images without and with compression and Doppler ultrasound images of the bilateral upper extremity veins were obtained. COMPARISON: None. FINDINGS: The right internal jugular vein, subclavian vein, axillary vein, brachial veins, basilic vein, cephal ic vein, radial vein, and ulnar vein are patent. The left internal jugular vein, subclavian vein, axillary vein, brachial veins, basilic vein, cephali c vein, radial vein, and ulnar vein are patent. IMPRESSION: 1. No evidence of deep venous thrombosis. Reviewed, dictated and finalized at location F. ACY COMPLIANCE MANAGER
--- NOTE | ~2022-07-08 | XR_ITS ---
XR chest 1V portable DATE: 07/08/2022 19:04 INDICATION: Cough, shortness of breath. History of hypertension. Status post CABG. TECHNIQUE: 2 portable supine AP views on 07/08/2022 1856 and 1857 hours COMPARISON: 06/25/2022 portable AP chest at 1240 hours FINDINGS: Status post sternotomy. Heart size appears within normal range. Is aortic calcification and mild tortuosity. There is pulmonary vascular congestion and redistribution. There are bilateral primarily central and lower lung zone infiltrates, right greater than left. The infiltrates are suggestive of pulmonary dago ma. There is improvement of prominent discoid atelectasis in the right lower lung since 06/25/2022. Small pleural effusions are suggested. No pneumothorax. Removal of right internal jugular central venous catheter since 06/25/2022. IMPRESSION: Pulmonary vascular congestion and probable pulmonary edema, small pleural effusions. Mild improvement is suggested since 06/25/2022 Reviewed, dictated and finalized at location A. BOILER IMPRESSION: Pulmonary vascular congestion and probable pulmonary edema, small p leural effusions. Mild improvement is suggested since 06/25/2022
--- NOTE | 2022-07-08 18:16 | ECG_ITS ---
Measurements Intervals [place] Rate: 131 P: 164 SD: 67 QRS: -13 QRSD: 94 T: 41 QT: 285 QTc: 421 Interpretive Statements ATRIAL/TACHYCARDIA WITH RAPID VENTRICULAR RESPONSE DELAYED PRECORDIAL R/S TRANSITION BASELINE ARTIFACT- I, III, AVL, V6 ABNORMAL ECG COMPARED TO ECG 06/28/2022 18:50:52 ATRIAL/TACHYCARDIA WITH RAPID VENTRICULAR RESPONSE NOW PRESENT Electronically Signed On 07-09-2022 7:12:01 PHARMACY BENEFIT MANAGER by El Toth D.O.
--- NOTE | 2022-07-08 18:23 | ED.GENADULT ---
HPI - General Adult General Chief complaint: Unspecified Stated complaint: c-diff, +ortho, sob with exertion Time Seen by Provider: 07/08/22 18:06 Source: patient, family, EMS and RN notes reviewed Mode of arrival: EMS Limitations: no limitations History of Present Illness HPI narrative: This is an 82 year old male with history of Cdiff, atrial fibrillation, chronic kidney disease who presents from home with concern for lethargy. Patient was discharged from [facility] 5 days ago after long stay for evaluation of sepsis shock, afib, cdiff and kidney disease. Patient has continued to have diarrhea since discharge. He reports 3 episodes of diarrhea today but he denies blood in his stool. He also denies abdominal pain. His states today patient has not eaten all day and he seems to be lethargic. He does report that he is dry heaving with out vomiting. Related Data Home Medications Medication Instructions Recorded Confirmed albuterol sulfate 90 mcg/actuation 1 inh inhalation QID PRN Shortness 02/20/20 07/07/22 aerosol inhaler (ProAir HFA) Of Breath solifenacin 10 mg tablet (Vesicare) 10 mg PO DAILY 07/13/21 07/07/22 budesonide 3 mg 6 mg PO DAILY PRN Allergy Symptoms 06/13/22 07/07/22 capsule,delayed,extended release calcium carb-Ca gluc 500 mg 1 tablet PO DAILY 06/13/22 07/07/22 calcium-magnesium ox-Mg gluc 250 mg tablet (Calcium Magnesium) cholecalciferol (vitamin D3) 350 350 mcg PO ONCE 06/13/22 07/07/22 mcg (14,000 unit) capsule clobetasol 0.05 % scalp solution 1 applic topical DAILY PRN Skin 06/13/22 07/07/22 Irritation phenazopyridine 100 mg tablet 100 mg PO TID PRN Bladder Spasms 06/13/22 07/07/22 (Pyridium) zolpidem 10 mg tablet (Ambien) 10 mg PO QHS PRN insomnia 06/13/22 07/07/22 aspirin 81 mg capsule 81 mg PO DAILY 06/16/22 07/07/22 Allergies Allergy/AdvReac Type Severity Reaction Status Date / Time sulfamethizole Allergy Unknown Confusion Verified 07/07/22 10:07 sulfamethoxazole Allergy Unknown Confusion Verified 07/07/22 10:07 trimethoprim Allergy Unknown Confusion Verified 07/07/22 10:07 Review of Systems Review of Systems: All systems reviewed & are unremarkable except as noted in HPI and below Constitutional: Constitutional: Denies body ache(s), Denies chills and Reports fatigue Cardiovascular: Cardiovascular: Denies chest pain with activity and Reports leg edema Respiratory: Respiratory: Denies cough and Reports dyspnea Gastrointestinal: Gastrointestinal: Denies abdominal pain, Reports diarrhea, Denies nausea and Denies vomiting [facility] Past Medical History Medical History Anemia Basal cell carcinoma BPH (benign prostatic hyperplasia) Collagenous colitis Coronary artery disease Diastolic dysfunction Echocardiogram 04/2022: EF 70% grade 1 diastolic dysfunction, aortic valve prosthesis with good function, moderate pulmonary hypertension Essential hypertension Gastroesophageal reflux H/O bladder problems Hyponatremia Hypothyroidism, unspecified Insomnia Kidney stones Latent tuberculosis Treated with INH in 1959 Mild persistent asthma without complication Mixed hyperlipidemia Occult blood in stools Shortness of breath Thrombocytopenia Surgical History Surgical History H/O aortic valve replacement (2013) 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 And 2 children. He smoked up to 4 packs of cig
[2022-07-08] MEDS: SODIUM CHLORIDE 0.9% IV 1,000 ML 999 ML IV CONT (18:50)
[2022-07-08 18:55] LABS: Alveolar/Arterial O2 Gradient 59.9 mmHg; Base Excess ABG -0.4 mEq/l (+/-2.0); Carboxyhemoglobin 1.3 % THb (0-2.0); Fractional Inspired Oxygen 21 %; HCO3 ABG 21.8 mEq/l (22.0-26.0); Methemoglobin ABG 0.3 %THb (0-1.5); Oxygen Content ABG 10.7 %vol (16.0-22.0); Oxygen Saturation ABG 93.2 % (95.0-100.0); Oxyhemoglobin 89.4 % THb (90.0-100.0); PCO2 ABG 26.9 mmHg (35.0-45.0); PO2 ABG 57.6 mmHg (80.0-100.0); PO2 FiO2 Ratio Arterial Blood 2.74 %; Total Hemoglobin 8.5 g/dL (12.0-18.0)
[2022-07-08 18:58] LABS: pH ABG 7.527 (7.350-7.450)
[2022-07-08 18:59] LABS: Device ROOM AIR; Modified Allen's Test Pass; Site Drawn LEFT RADIAL
[2022-07-08 19:07] LABS: Basophils Percent Auto 0.2 % (0.2-1.2); Hematocrit 25.7 % (42.0-52.0); Hemoglobin 8.5 g/dL (14.0-18.0); Immature Granulocyte Absolute 0.09 K/mm3 (0.00-0.031); Immature Granulocyte Percent A 0.7 % (0-0.5); Immature Platelet Fraction Pct 3.9 % (0.9-11.2); Lymphocytes Absolute Auto 0.23 K/mm3 (0.9-3.2); Lymphocytes Percent Auto 1.8 % (18.3-44.2); Mean Corpuscular HGB Conc 33.1 g/dl (32-36); Mean Corpuscular Hemoglobin 34.7 pg (26-34); Mean Corpuscular Volume 104.9 fl (80-100); Mean Platelet Volume 9.9 fl (7.4-10.4); Monocytes Absolute Auto 0.6 K/mm3 (0.1-0.6); Monocytes Percent Auto 4.4 % (2.6-8.5); Neutrophils Absolute Auto 11.6 K/mm3 (1.3-6.7); Neutrophils Percent Auto 92.9 % (45.5-73.1); Platelet Count Result 114 k/mm3 (150-375); Red Blood Count 2.45 M/mm3 (4.6-6.20); Red Cell Distribution Width 16.3 % (11.5-14.5); White Blood Count 12.5 K/mm3 (4.5-10.0)
[2022-07-08 19:14] LABS: Lactic Acid Reflex 2.3 mmol/L (0.7-2.0)
[2022-07-08 19:15] LABS: Lipase 46 U/L (23-300); Magnesium 1.2 mg/dL (1.6-2.3)
[2022-07-08 19:16] LABS: INR 1.6; Prothrombin Time 18.2 Seconds (11.1-14.7)
[2022-07-08 19:17] LABS: Alanine Aminotransferase 17 U/L (6-50); Albumin Level 3.3 g/dL (3.5-5.1); Alkaline Phosphatase 83 U/L (38-126); Anion Gap 12 mmol/L (8-16); Aspartate Amino Transferase 24 U/L (17-59); Bilirubin,Total 1.1 mg/dL (0.2-1.3); Blood Urea Nitrogen 21 mg/dL (9-20); CRP 6.1 mg/dL (<1.0); Carbon Dioxide 23 mmol/L (22-30); Chloride 96 mmol/L (98-107); Estimated CRCL calculation 26 ml/min; Estimated Glomerular Filt Rate 30; Glucose 130 mg/dL (65-110); Potassium 4.5 mmol/L (3.4-5.0); Sodium 131 mmol/L (137-145)
[2022-07-08 19:17] LABS: Partial Thromboplastin Time 34.6 SECONDS (22.3-36.8)
[2022-07-08 19:31] LABS: NT Pro B Type Natriuretic Pept 17800 pg/mL (5-100); Troponin I 0.093 ng/mL (0.000-0.034)
[2022-07-08 20:52] LABS: Appearance Urine Clear (Clear); Bilirubin Urine 1+ (Negative); Blood Urine 3+ (Negative); Color Urine Amber (Yellow); Glucose Urine UA Trace mg/dL (Negative); Ketones Urine Trace mg/dL (Negative); Leukocyte Esterase Ur Trace LEU/UL (Negative); Nitrate Urine Positive (Negative); Protein Urine 3+ mg/dL (Negative); Specific Grav Ur 1.015 (1.001-1.035)
[2022-07-08] MEDS: MAGNESIUM SULF 4 GM/WATER100ML 4 GM/100 ML BAG IVPB (20:54)
[2022-07-08 20:59] LABS: Add Urine Microscopic? YES; Bacteria Urine Trace /hpf; Mucus Urine Rare /lpf; RBC Urine >75 /hpf (0-2); Squamous Epithelial Cell Urine Few /hpf (Few); WBC Urine 21-30 /hpf
[2022-07-08 21:03] LABS: Influenza A QL RT-PCR Negative (Negative); Influenza B QL RT-PCR Negative (Negative); SARS-CoV-2 RNA PCR Negative
[2022-07-08 22:01] LABS: Reflex Lactic Acid Yes or No Add Lactic
[2022-07-08] MEDS: metroNIDAZOLE 500 MG/ISO 100ML 500 MG/100 ML BAG 100 MG IVPB (22:17)
--- NOTE | 2022-07-08 22:32 | PC.NURSE ---
patient transferred to IMU with flagyl infusing
--- NOTE | 2022-07-08 22:40 | PC.NURSE ---
This patient, Naga De Leon, was admitted to IMU Room 213-01. Patient/family oriented to hospital policies and general routines including ID bracelet, bed and alarms, visiting hours, pain management, procedures, bathroom and other care routines, personal items, smoking policy, room service/diet, and visiting hours. Information on how to activate the Rapid Response Team has been discussed. Patient/Family are encouraged to report perceived risks to care and to ask questions if they do not understand what they are told or what they should do.
--- NOTE | 2022-07-08 23:03 | PM.IMHP ---
H&P: HPI History of Present Illness Date/Time: 07/08/22 23:03 Chief Complaint: Lethargy Narrative: 82-year-old male with past medical history aortic valve replacement, AFib RVR, moderate pulmonary hypertension, hypothyroidism, BPH, chronic collagenous colitis and recent prolonged hospitalization for C diff colitis (06/14/2022) who presented back to the ER via EMS from home today with lethargy. He was hospitalized for 3 weeks and was discharged 07/04/2022. The patient reports that ever since he was discharged from the hospital he usually has 3 bowel movements a day. He does have a history of collagenous colitis in the past as well and at a baseline usually has at least 2 soft mushy stools a day. But his stools have been more watery. He reports that he has had persistent dysuria for the last 6 weeks. He had a [place] catheter placed during his last hospitalization and had gross hematuria following catheter removal. At the time of my evaluation I asked nursing staff to bladder scan the patient as he was unable to void. He had over 400 mL in his bladder. The patient is reluctant to have a catheter placed at this time. He denies any chills but was found to be febrile with a temperature of 102.9? in the ER. He received IV Tylenol. His UA in the ER was suggestive of UTI and a CT scan of the abdomen pelvis demonstrated bilateral pyelonephritis. Likely the patient's: Did not appear to be inflamed or suspicious for colitis. He has been compliant with his p.o. Flagyl and p.o. vancomycin since discharge from the hospital. During his last hospitalization he was treated for C diff with Dificid in had persistent diarrhea and was switched to p.o. vancomycin and Flagyl after he had completed the Dificid course. He denies any significant abdominal pain. He has been having some nausea and has had 2 episodes of dry heaves over the last couple of days. He reports that he has been more lethargic for the last 2 or 3 days as well in today has done not much else but sleep. He denied any cough at the time of my evaluation but had evidently had an episode of coughing this afternoon. He reports intermittent generalized headache for the last several days. He denies any visual changes. He has not had much appetite. He denies any obvious melena or hematochezia. He denies abdominal pain at the time of my evaluation. He has chronic dyspnea on exertion but has not noticed any significant change in his breathing since discharge from the hospital. In the ER imaging did demonstrate bilateral moderate pleural effusions increased in size compared to June 14. The patient has persistent bilateral lower extremity edema that is 2+ pitting in nature but unchanged from his discharge exam. He denies any dizziness lightheadedness or loss of consciousness. He has been ambulating with a walker per his baseline. He had an ABG ordered in the ER but the sample appears to be more consistent with a venous specimen. He had noted lactic acidosis and received 1 L normal saline bolus. He had elevated troponin in the ER but is adamant that he does not have any chest pain. Review of Systems Review of Systems: 12 systems were reviewed with pertinent positives and negatives per HPI. Except as documented in the HPI, all other systems were reviewed and are negative. REPLACED BY [facility] Past Medical History Medical History (Updated 07/09/22 @ 02:43 by Nupur Morrison, DO) Anemia Atrial fibrillation with RVR Occurred during admission May 2022 due to sepsis Basal cell carcinoma BPH (benign prostatic hyperplasia) Chronic idiopathic thrombocytopenia Collagenous colitis Resulting in chronic loose stools Coronary artery disease Diastolic dysfunction Echocardiogram 04/2022: EF 70% grade 1 diastolic dysfunction, aortic valve prosthesis with good function, moderate pulmonary hypertension Essential hypertension Gastroesophageal reflux Hypothyroidism, unspecified Insomnia Kidney stones Latent tuberculo
[2022-07-08 23:35] LABS: Lactic Acid 0.9 mmol/L (0.7-2.0)
[2022-07-09] VITALS (16 sets, daily range): BP systolic 101–133; BP diastolic 51–93; PULSE 103–139; RESP 16–30; TEMP 36.4–37.7; O2SAT 92–99
[2022-07-09 00:05] LABS: Troponin I 0.113 ng/mL (0.000-0.034)
[2022-07-09] MEDS: SODIUM CHLORIDE 0.9% IV 1,000 ML 75 ML IV CONT ×2 (00:25→20:07)
[2022-07-09] MEDS: ACETAMINOPHEN 325 MG TABLET 650 MG PO (03:10)
[2022-07-09] MEDS: ONDANSETRON INJ 4 MG/2 ML VIAL IV PUSH (03:16)
[2022-07-09 05:06] LABS: Basophils Percent Auto 0.2 % (0.2-1.2); Hematocrit 21.5 % (42.0-52.0); Immature Granulocyte Absolute 0.08 K/mm3 (0.00-0.031); Immature Granulocyte Percent A 0.7 % (0-0.5); Immature Platelet Fraction Pct 4.3 % (0.9-11.2); Lymphocytes Absolute Auto 0.14 K/mm3 (0.9-3.2); Lymphocytes Percent Auto 1.3 % (18.3-44.2); Mean Corpuscular Hemoglobin 35.3 pg (26-34); Mean Platelet Volume 10.4 fl (7.4-10.4); Monocytes Absolute Auto 0.4 K/mm3 (0.1-0.6); Monocytes Percent Auto 3.5 % (2.6-8.5); Neutrophils Absolute Auto 10.4 K/mm3 (1.3-6.7); Neutrophils Percent Auto 94.3 % (45.5-73.1); Platelet Count Result 104 k/mm3 (150-375); Red Blood Count 2.01 M/mm3 (4.6-6.20); Red Cell Distribution Width 16.4 % (11.5-14.5)
[2022-07-09 05:12] LABS: Alanine Aminotransferase 16 U/L (6-50); Albumin Level 2.8 g/dL (3.5-5.1); Alkaline Phosphatase 64 U/L (38-126); Anion Gap 6 mmol/L (8-16); Aspartate Amino Transferase 26 U/L (17-59); Bilirubin,Total 1.1 mg/dL (0.2-1.3); Blood Urea Nitrogen 23 mg/dL (9-20); Carbon Dioxide 20 mmol/L (22-30); Chloride 98 mmol/L (98-107); Estimated CRCL calculation 23 ml/min; Estimated Glomerular Filt Rate 30; Glucose 111 mg/dL (65-110); Magnesium 1.9 mg/dL (1.6-2.3); Phosphorus 3.8 mg/dL (2.5-4.5); Potassium 4.8 mmol/L (3.4-5.0); Sodium 124 mmol/L (137-145)
[2022-07-09 05:33] LABS: Hemoglobin 7.1 g/dL (14.0-18.0)
[2022-07-09] MEDS: metroNIDAZOLE 500 MG/ISO 100ML 500 MG/100 ML BAG 100 MG IVPB ×3 (06:42→23:09)
[2022-07-09] MEDS: VANCOMYCIN ORAL 500 MG/10 ML SYRUP PO ×4 (06:42→23:10)
[2022-07-09] MEDS: LEVOTHYROXINE SODIUM 50 MCG TABLET PO (06:42)
--- NOTE | 2022-07-09 07:59 | PM.IMPN ---
Progress Note: A&P Assessment and Plan (1) Sepsis: Qualifiers: Sepsis acute organ dysfunction status: with acute organ dysfunction Sepsis type: sepsis due to unspecified organism Severe sepsis acute organ dysfunction type: acute renal failure Severe sepsis shock status: without septic shock Code(s): A41.9 - Sepsis, unspecified organism Status: Acute Assessment and Plan: Unsure of etiology, continue IV Flagyl, oral vancomycin, cefepime for possible UTI versus C diff colitis Follow-up blood and urine cultures Appreciate urological consultation Diarrhea appears to be at baseline Gentle IV fluid resuscitation due to pleural effusions and lower extremity edema (2) Pyelonephritis: Code(s): N12 - Tubulo-interstitial nephritis, not specified as acute or chronic Status: Acute Assessment and Plan: Continue cefepime, appreciate Urology consultation, follow urine culture (3) Renal failure: Code(s): N19 - Unspecified kidney failure Status: Acute Assessment and Plan: Monitor, could be at baseline, reassess after IV fluid resuscitation (4) Hypomagnesemia: Code(s): E83.42 - Hypomagnesemia Status: Acute Assessment and Plan: Improving, monitor (5) C. difficile diarrhea: Code(s): A04.72 - Enterocolitis due to Clostridium difficile, not specified as recurrent Status: Acute Assessment and Plan: Status post Dificid, continue IV Flagyl and p.o. vancomycin (6) Pleural effusion: Code(s): J90 - Pleural effusion, not elsewhere classified Status: Acute Assessment and Plan: Likely secondary to hypoalbuminemia, may need thoracentesis, monitor (7) Chronic idiopathic thrombocytopenia: Code(s): D69.3 - Immune thrombocytopenic purpura Status: Acute Assessment and Plan: Stable, continue to monitor (8) Anemia: Qualifiers: Anemia type: other cause Other causes of anemia: chronic disease, other Qualified Code(s): D63.8 - Anemia in other chronic diseases classified elsewhere Code(s): D64.9 - Anemia, unspecified Status: Acute Assessment and Plan: Complicated by malnutrition, monitor (9) Elevated troponin: Code(s): R77.8 - Other specified abnormalities of plasma proteins Status: Acute Assessment and Plan: Do not suspect cardiac etiology, likely demand ischemia from sepsis, monitor (10) Proteinuria: Qualifiers: Proteinuria type: other Qualified Code(s): R80.8 - Other proteinuria Code(s): R80.9 - Proteinuria, unspecified Status: Acute Assessment and Plan: Worsening, monitor closely, consider Nephrology consultation Plan DVT prophylaxis with Eliquis GI prophylaxis with famotidine Code status full code Subjective Date/time seen: 07/09/22 07:59 Interval history: No overnight events noted. No chest pain or shortness of breath. No fevers or chills. Patient admits to some dry heaves, continues to have diarrhea, appears to be back to baseline regarding diarrhea. Patient mainly complained of significant lethargy and weakness. Exam Narrative: General: Chronically ill-appearing male, alert oriented per baseline HEENT: Atraumatic, normocephalic, mucous membranes moist CV: Regular rate and rhythm, S1, S2 Lungs: Clear to auscultation bilaterally, no rales or crackles noted, no wheezes, good air entry Abdomen: Soft, nontender, nondistended Extremities: Normal to inspection, +2 nonpitting edema Skin: No rashes noted, no lesions or wounds seen Psych: Euthymic, normal affect Objective Data Vital Signs Vital Signs: Vital Signs - 24 hr 07/08/22 18:00 07/08/22 18:10 07/08/22 19:22 Temperature 102.9 F H Pulse Rate 133 H 130 H Respiratory Rate 30 H Blood Pressure 161/124 H Pulse Oximetry 98 Oxygen Delivery Room Air 07/08/22 18:08 07/08/22 18:28 07/08/22 18:35 Temperature Pu
[2022-07-09 08:36] LABS: Glucose Point of Care 121 mg/dl (65-105)
[2022-07-09] MEDS: SACCHAROMYCES BOULARDII 250 MG CAPSULE PO ×3 (10:17→17:59)
[2022-07-09] MEDS: SOLIFENACIN 5 MG TABLET 10 MG PO (10:17)
[2022-07-09] MEDS: MIDODRINE HCL 2.5 MG TABLET PO ×3 (10:18→17:59)
[2022-07-09] MEDS: HYDROCORTISONE/PRAMOXINE 2.5% 30 GM CREAM 1 APPLIC RECTAL (10:18)
[2022-07-09] MEDS: PANTOPRAZOLE SOD SESQUIHYDRATE 20 MG TAB PO (10:18)
[2022-07-09] MEDS: FLUTICASONE PROPIONATE 0.05% NA SPR 16 GM BTL (*BKC) 2 SPRAY NASAL (10:19)
[2022-07-09] MEDS: FAMOTIDINE 20 MG TABLET PO ×2 (10:19→20:05)
[2022-07-09] MEDS: APIXABAN 2.5 MG TABLET PO ×2 (10:20→20:05)
--- NOTE | 2022-07-09 11:19 | WPDURCON ---
Assessment and Plan Assessment and plan (1) Acute UTI: Code(s): N39.0 - Urinary tract infection, site not specified Status: Acute (2) C. difficile diarrhea: Code(s): A04.72 - Enterocolitis due to Clostridium difficile, not specified as recurrent Status: Acute (3) Renal failure: Code(s): N19 - Unspecified kidney failure Status: Acute Plan 82 yr old male admitted with fever, weakness, SOB, recent cdif, and concern for UTI - pvr only 80 cc today; no indication for angulo. Continue tamsulosin but will stop vesicare for now due to urinary hesitancy - UA/CT findings concerning for UTI/possible pyelo- is on cefepime; await urine culture results - recent cdif. Currently on vanc and flagyl. Consider ID consult in setting of UTI and cdif - will continue to follow. Urology Consult Note HPI Date Seen: 07/09/22 Requesting Physician: Nupur Morrison DO Primary Care Provider: Doris Ingram MD Consult Narrative Reason for consult: UTI and possible need for angulo Narrative: Naga De Leon is a 82 year old male known to our service with history of irritative voiding symptoms and dysuria. Had cysto with Dr. Solano in summer 2019 showing inflammation and bladder biopsy was consistent with inflammation. Has been managed on vesicare for his irritative voiding symptoms. Was recently admitted for several weeks and treated for cdif. During that admission, he required a angulo at one point. He describes traumatic angulo insertion. He presented to ER yesterday with fever, diarrhea, SOB, and weakness. He was febrile in ER. Wbc ct elevated. Cr 2.1 which appears to be his new baseline. CT showed no hydro with B perinephric stranding. There was concern for UTI based on UA and he has been started on cefepime. Intermittently he is still having diarrhea and is on PO vanc and IV flagyl for cdif. Initially was having urinary hesitancy and bladder scan showed 400 cc. was consulted about possible angulo placement. Since then he voided 300 cc overnight. Recently he voided 200 cc with pvr of only 80 cc. Review of Systems Constitutional: Constitutional: Reports fatigue and Reports weakness Eyes: Eyes: Reports no additional eye complaints ENT: Reports system reviewed and no additional complaints, except as documented Cardiovascular: Cardiovascular: Reports leg edema and Reports palpitations (Afib) Respiratory: Respiratory: Reports dyspnea (improved since admission) Gastrointestinal: Gastrointestinal: Reports diarrhea Genitourinary: Genitourinary: Reports dysuria and Reports urinary hesitancy Musculoskeletal: Musculoskeletal: Reports no additional musculoskeletal complaints Integumentary/Breasts: Skin/Breast: Reports rash (B inner thigh rash) Neurologic: Reports system reviewed and no additional complaints, except as documented Psychiatric: Psychiatric: Reports no additional psychiatric complaints [facility] Past Medical History Medical History (Updated 07/09/22 @ 02:43 by Nupur Morrison DO) Anemia Atrial fibrillation with RVR Occurred during admission May 2022 due to sepsis Basal cell carcinoma BPH (benign prostatic hyperplasia) Chronic idiopathic thrombocytopenia Collagenous colitis Resulting in chronic loose stools Coronary artery disease Diastolic dysfunction Echocardiogram 04/2022: EF 70% grade 1 diastolic dysfunction, aortic valve prosthesis with good function, moderate pulmonary hypertension Essential hypertension Gastroesophageal reflux Hypothyroidism, unspecified Insomnia Kidney stones Latent tuberculosis Treated with INH in 1959 Mild persistent asthma without complication Mixed hyperlipidemia Thrombocytopenia Surgical History Surgical History H/O aortic valve replacement (2013) 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
[2022-07-09 12:24] LABS: Glucose Point of Care 135 mg/dl (65-105)
[2022-07-09] MEDS: ALBUTEROL SULFATE (*SP) AEROSOL 1 PUFF INHALATION (14:34)
[2022-07-09 16:54] LABS: Glucose Point of Care 132 mg/dl (65-105)
[2022-07-09] MEDS: MAGNESIUM OXIDE 400 MG TABLET PO (17:58)
[2022-07-09] MEDS: CALCIUM CARBONATE (OSCAL) 500 MG TABLET PO (17:58)
[2022-07-09] MEDS: CEFEPIME 0.5 GM in DEXTROSE 5% IN WATER 50 ML IVPB (20:05)
[2022-07-09] MEDS: ATORVASTATIN 10 MG TABLET PO (20:05)
[2022-07-09] MEDS: TAMSULOSIN HCL 0.4 MG CAPSULE PO (20:05)
[2022-07-09 20:08] LABS: Glucose Point of Care 143 mg/dl (65-105)
[2022-07-10] VITALS (19 sets, daily range): BP systolic 107–135; BP diastolic 59–88; PULSE 89–113; RESP 18–22; TEMP 36.4–37; O2SAT 93–99; BMI 28.6
[2022-07-10] MEDS: ZOLPIDEM TARTRATE (*CRX) 5 MG TABLET 10 MG PO (02:25)
[2022-07-10 05:17] LABS: Basophils Percent Auto 0.3 % (0.2-1.2); Eosinophils Percent Auto 0.4 % (0-4.4); Immature Granulocyte Absolute 0.04 K/mm3 (0.00-0.031); Immature Granulocyte Percent A 0.6 % (0-0.5); Immature Platelet Fraction Pct 5.1 % (0.9-11.2); Lymphocytes Absolute Auto 0.45 K/mm3 (0.9-3.2); Lymphocytes Percent Auto 6.3 % (18.3-44.2); Mean Corpuscular HGB Conc 32.6 g/dl (32-36); Mean Corpuscular Hemoglobin 34.3 pg (26-34); Mean Platelet Volume 10.1 fl (7.4-10.4); Monocytes Absolute Auto 0.5 K/mm3 (0.1-0.6); Monocytes Percent Auto 6.6 % (2.6-8.5); Neutrophils Absolute Auto 6.1 K/mm3 (1.3-6.7); Neutrophils Percent Auto 85.8 % (45.5-73.1); Platelet Count Result 87 k/mm3 (150-375); Red Blood Count 1.81 M/mm3 (4.6-6.20); White Blood Count 7.1 K/mm3 (4.5-10.0)
[2022-07-10 05:25] LABS: Alanine Aminotransferase 14 U/L (6-50); Albumin Level 2.5 g/dL (3.5-5.1); Alkaline Phosphatase 59 U/L (38-126); Anion Gap 9 mmol/L (8-16); Aspartate Amino Transferase 23 U/L (17-59); Bilirubin,Total 0.5 mg/dL (0.2-1.3); Blood Urea Nitrogen 25 mg/dL (9-20); Carbon Dioxide 20 mmol/L (22-30); Chloride 96 mmol/L (98-107); Estimated CRCL calculation 22 ml/min; Estimated Glomerular Filt Rate 29; Glucose 99 mg/dL (65-110); Potassium 3.8 mmol/L (3.4-5.0); Sodium 125 mmol/L (137-145)
[2022-07-10 05:29] LABS: Hemoglobin 6.2 g/dL (14.0-18.0)
[2022-07-10] MEDS: metroNIDAZOLE 500 MG/ISO 100ML 500 MG/100 ML BAG 100 MG IVPB ×3 (05:42→22:43)
[2022-07-10] MEDS: LEVOTHYROXINE SODIUM 50 MCG TABLET PO (05:42)
[2022-07-10] MEDS: VANCOMYCIN ORAL 500 MG/10 ML SYRUP PO ×3 (05:43→18:08)
[2022-07-10 07:55] LABS: Glucose Point of Care 98 mg/dl (65-105)
[2022-07-10] MEDS: SODIUM CHLORIDE 0.9% IV 250 ML 30 ML IV CONT (08:37)
[2022-07-10] MEDS: TUBING, BLOOD PLUM PUMP TUBING 1 EACH XX ×2 (08:38→13:04)
--- NOTE | 2022-07-10 09:06 | PM.IMPN ---
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, malnutrition, c dif colitis, chronic collagenous colitis, FOBT pending, previously positive at last admission Complicated by malnutrition, FOBT pending, GI consult pending FOBT was positive 06/25 when patient also required a transfusion, hgb stable after that until this morning 07/10: acute drop in hgb to 6.2 from 8.5 at admission, 7.1 yesterday, 2 units pRBC ordered and being given, this also happened during the last admission, GI was consulted, no workup deemed necessary, hgb stable after transfusion last time (06/25/22) (2) Sepsis: Qualifiers: Sepsis acute organ dysfunction status: with acute organ dysfunction Sepsis type: sepsis due to unspecified organism Severe sepsis acute organ dysfunction type: acute renal failure Severe sepsis shock status: without septic shock Code(s): A41.9 - Sepsis, unspecified organism Status: Acute Assessment and Plan: Unsure of etiology, continue IV Flagyl, oral vancomycin, cefepime for possible UTI versus C diff colitis, IV vanc, h/o MRSA bacteremia from last admission that was treated with daptomycin for approximately 14 days, possibly incompletely treated? Follow-up blood and urine cultures this admission--urine pos pseudomonas so far 07/10/22 Appreciate urological consultation Diarrhea appears to be at baseline, previously on immodium + budesonide for collagenous colitis, held for now due to C diff infection Gentle IV fluid resuscitation due to pleural effusions and lower extremity edema, thoracentesis pending Urine culture just came back positive for pseudomonas, cont cefepime, f/u blood cultures, 1/2 positive for s. aureus, possibly MRSA? cont IV vanc (3) Pyelonephritis: Code(s): N12 - Tubulo-interstitial nephritis, not specified as acute or chronic Status: Acute Assessment and Plan: Continue cefepime, appreciate Urology consultation, follow urine culture (4) Renal failure: Code(s): N19 - Unspecified kidney failure Status: Acute Assessment and Plan: Monitor, could be at baseline, reassess after IV fluid resuscitation (5) Hypomagnesemia: Code(s): E83.42 - Hypomagnesemia Status: Acute Assessment and Plan: Improving, monitor (6) C. difficile diarrhea: Code(s): A04.72 - Enterocolitis due to Clostridium difficile, not specified as recurrent Status: Acute Assessment and Plan: Status post Dificid, continue IV Flagyl and p.o. vancomycin C dif positive 06/14/22 Recheck c dif pending (7) Pleural effusion: Code(s): J90 - Pleural effusion, not elsewhere classified Status: Acute Assessment and Plan: Likely secondary to hypoalbuminemia, thoracentesis pending, monitor, follow-up cytology Consider albumin infusions to prevent 3rd spacing (8) Chronic idiopathic thrombocytopenia: Code(s): D69.3 - Immune thrombocytopenic purpura Status: Acute Assessment and Plan: Stable, continue to monitor (9) Elevated troponin: Code(s): R77.8 - Other specified abnormalities of plasma proteins Status: Acute Assessment and Plan: Do not suspect cardiac etiology, likely demand ischemia from sepsis, monitor (10) Proteinuria: Qualifiers: Proteinuria type: other Qualified Code(s): R80.8 - Other proteinuria Code(s): R80.9 - Proteinuria, unspecified Status: Acute Assessment and Plan: Worsening, monitor closely, Nephrology consultation pending (11) Hyponatremia: Code(s): E87.1 - Hypo-osmolality and hyponatremia Status: Acute Assessment and Plan: A
[2022-07-10 10:45] LABS: Lactic Acid Reflex 0.9 mmol/L (0.7-2.0)
[2022-07-10 10:47] LABS: CRP 19.1 mg/dL (<1.0)
[2022-07-10 11:01] LABS: Troponin I 0.622 ng/mL (0.000-0.034)
[2022-07-10 11:17] LABS: Procalcitonin 4.6 ng/mL
[2022-07-10] MEDS: SACCHAROMYCES BOULARDII 250 MG CAPSULE PO ×3 (11:27→18:08)
[2022-07-10] MEDS: MIDODRINE HCL 2.5 MG TABLET PO ×3 (11:28→18:09)
[2022-07-10] MEDS: PANTOPRAZOLE SOD SESQUIHYDRATE 20 MG TAB PO (11:28)
[2022-07-10] MEDS: MAGNESIUM OXIDE 400 MG TABLET PO (11:29)
[2022-07-10] MEDS: FLUTICASONE PROPIONATE 0.05% NA SPR 16 GM BTL (*BKC) 2 SPRAY NASAL (11:30)
[2022-07-10] MEDS: CALCIUM CARBONATE (OSCAL) 500 MG TABLET PO (11:30)
[2022-07-10] MEDS: FAMOTIDINE 20 MG TABLET PO ×2 (11:30→20:27)
[2022-07-10 11:45] LABS: Glucose Point of Care 128 mg/dl (65-105)
--- NOTE | 2022-07-10 11:49 | PCOTNOTE ---
Attempted to see pt. for occupational therapy evaluation. Per nursing, pt. is excessively fatigued and has a hemoglobin of 6.2, and is currently receiving blood products and awaiting thoracentesis. Nursing requested we wait on evaluation. Following.
[2022-07-10 12:02] LABS: Erythrocyte Sedimentation Rate > 140 mm/hr (0-20)
--- NOTE | 2022-07-10 12:35 | PCPTNOTE ---
Addendum entered by Nora Rhodes, PT 07/10/22 15:56: Attempted to see pt. for physical therapy evaluation. Per nursing, pt. is excessively fatigued and has a hemoglobin of 6.2, and is currently receiving blood products and awaiting thoracentesis. Nursing requested we wait on evaluation. Following. Original Note: Attempted to see pt. for occupational therapy evaluation. Per nursing, pt. is excessively fatigued and has a hemoglobin of 6.2, and is currently receiving blood products and awaiting thoracentesis. Nursing requested we wait on evaluation. Following.
[2022-07-10] MEDS: SODIUM CHLORIDE 0.9% IV 250 ML 30 ML (13:05)
--- NOTE | 2022-07-10 14:52 | P.CONNP_ITS ---
Assessment and Plan Assessment and plan (1) Renal failure: Code(s): N19 - Unspecified kidney failure Status: Acute Assessment and Plan: * suffered ZORAN/ARF on last hosptilization due to sepsis * creatinine seems to stabilize in the 2ish range by the time of discharge * the hope was that his kidney function would continue to improve * HOWEVER, it is possible this is his new baseline creatinine and he has left over CKD at this time * also, acute illness of this hospitalization could he happering kidney recover * previous evaluation noted: * renal ultrasound normal * urine electrolytes are pre-renal * CPK normal * still with significant swelling/edema and pleural effusions * suspect still need may diuretic therapy eventually once #2 resolves (2) Sepsis: Qualifiers: Sepsis acute organ dysfunction status: with acute organ dysfunction Sepsis type: sepsis due to unspecified organism Severe sepsis acute organ dysfunction type: acute renal failure Severe sepsis shock status: without septic shock Code(s): A41.9 - Sepsis, unspecified organism Status: Acute Assessment and Plan: * as evidence by lactic acidosis, fever, tachycardia, tachypnea, and confusion * appropriate cultures obtained and on IV antibioitcs * presumed source = imaging concerning for pyelonephritis and UA indicative of UTI * history of C. diff colitis but no mention of this of CT imaging (3) Pleural effusion: Code(s): J90 - Pleural effusion, not elsewhere classified Status: Acute Assessment and Plan: * likely to third spacing from hypoalbuminemia from recent acute ill ness/hospitalization * consider diuresis but may benefit from thoracentesis more so (4) Anemia: Qualifiers: Anemia type: other cause Other causes of anemia: chronic disease, other Qualified Code(s): D63.8 - Anemia in other chronic diseases classified elsewhere Code(s): D64.9 - Anemia, unspecified Status: Acute Assessment and Plan: * due to ZORAN, possible new CKD, and acute illness currently and from last hos pitalization * follow trend of H/H * PRBC transfusion per protocol * consider empiric Epogen therapy (5) C. difficile diarrhea: Code(s): A04.72 - Enterocolitis due to Clostridium difficile, not specified as recurrent Status: Acute Assessment and Plan: * continue course or po vancomycin with addition of IV flagyl * supportive therapy Will continue to follow History of Present Illness Reason for Consult Consult date: 07/10/22 Reason for consult: acute renal failure (?) Chief Complaint Chief complaint: severe sepsis, pyelonephritis, c diff History of Present Illness Narrative: The patient is 82-year-old male with a past medical history as outlined below who presented to the hospital ER via EMS for further evaluation of confusion/lethargy. It should be noted the patient was just recently discharged after being hospitalized for almost 3 weeks due to sepsis, C diff colitis, as well as acute kidney injury/acute renal failure. Apparently, after discharge, the patient had been doing fairly well but he started to have more frequent diarrhea than his baseline secondary to his collagenous colitis. Furthermore, he reports ongoing /persistent dysuria towards the end of his last hospitalization and even after discharge. He reports no overt fevers or chills however he was found to be febrile in the emergency room. Given the constellation of symptoms as noted, EMS brought him to the emergency room for
--- NOTE | 2022-07-10 14:52 | PM.CNNEP ---
Assessment and Plan Assessment and plan (1) Renal failure: Code(s): N19 - Unspecified kidney failure Status: Acute Assessment and Plan: suffered ZORAN/ARF on last hosptilization due to sepsis creatinine seems to stabilize in the 2ish range by the time of discharge the hope was that his kidney function would continue to improve HOWEVER, it is possible this is his new baseline creatinine and he has left over CKD at this time also, acute illness of this hospitalization could he happering kidney recover previous evaluation noted: renal ultrasound normal urine electrolytes are pre-renal CPK normal still with significant swelling/edema and pleural effusions suspect still need may diuretic therapy eventually once #2 resolves (2) Sepsis: Qualifiers: Sepsis acute organ dysfunction status: with acute organ dysfunction Sepsis type: sepsis due to unspecified organism Severe sepsis acute organ dysfunction type: acute renal failure Severe sepsis shock status: without septic shock Code(s): A41.9 - Sepsis, unspecified organism Status: Acute Assessment and Plan: as evidence by lactic acidosis, fever, tachycardia, tachypnea, and confusion appropriate cultures obtained and on IV antibioitcs presumed source = imaging concerning for pyelonephritis and UA indicative of UTI history of C. diff colitis but no mention of this of CT imaging (3) Pleural effusion: Code(s): J90 - Pleural effusion, not elsewhere classified Status: Acute Assessment and Plan: likely to third spacing from hypoalbuminemia from recent acute illness/hospitalization consider diuresis but may benefit from thoracentesis more so (4) Anemia: Qualifiers: Anemia type: other cause Other causes of anemia: chronic disease, other Qualified Code(s): D63.8 - Anemia in other chronic diseases classified elsewhere Code(s): D64.9 - Anemia, unspecified Status: Acute Assessment and Plan: due to ZORAN, possible new CKD, and acute illness currently and from last hospitalization follow trend of H/H PRBC transfusion per protocol consider empiric Epogen therapy (5) C. difficile diarrhea: Code(s): A04.72 - Enterocolitis due to Clostridium difficile, not specified as recurrent Status: Acute Assessment and Plan: continue course or po vancomycin with addition of IV flagyl supportive therapy Will continue to follow History of Present Illness Reason for Consult Consult date: 07/10/22 Reason for consult: acute renal failure (?) Chief Complaint Chief complaint: severe sepsis, pyelonephritis, c diff History of Present Illness Narrative: The patient is 82-year-old male with a past medical history as outlined below who presented to the hospital ER via EMS for further evaluation of confusion/lethargy. It should be noted the patient was just recently discharged after being hospitalized for almost 3 weeks due to sepsis, C diff colitis, as well as acute kidney injury/acute renal failure. Apparently, after discharge, the patient had been doing fairly well but he started to have more frequent diarrhea than his baseline secondary to his collagenous colitis. Furthermore, he reports ongoing /persistent dysuria towards the end of his last hospitalization and even after discharge. He reports no overt fevers or chills however he was found to be febrile in the emergency room. Given the constellation of symptoms as noted, EMS brought him to the emergency room for further assessment. Workup and evaluation emergency room demonstrated the patient be febrile with a temperature of 1 of 2.9 but was otherwise hemodynamically stable. Urinalysis was highly suggestive of a urinary tract infection and a CT scan of the abdomen pelvis demonstrated suggestion of bilateral pyelonephritis. Despite his history C diff colitis, the CT scan did not mention anything with regard to
[2022-07-10 15:22] LABS: Toxigenic C. Diff NEGATIVE (NEGATIVE)
[2022-07-10 16:15] LABS: Glucose Point of Care 114 mg/dl (65-105)
[2022-07-10 16:28] LABS: Hematocrit 22.3 % (42.0-52.0); Hemoglobin 7.3 g/dL (14.0-18.0)
[2022-07-10] MEDS: ACETAMINOPHEN 325 MG TABLET 650 MG PO (18:39)
[2022-07-10 20:05] LABS: Glucose Point of Care 138 mg/dl (65-105)
[2022-07-10] MEDS: SODIUM CHLORIDE 0.9% IV 1,000 ML 75 ML IV CONT (20:20)
[2022-07-10] MEDS: ATORVASTATIN 10 MG TABLET PO (20:27)
[2022-07-10] MEDS: TAMSULOSIN HCL 0.4 MG CAPSULE PO (20:27)
[2022-07-10 21:11] LABS: Appearance Pleural Fluid Bloody (Clear); Pleural fluid source Pleural fluid
[2022-07-10 21:12] LABS: Color Pleural Fluid Red (Colorless); Lymphocytes Pleural Fluid 41 %; Monocytes Pleural Fluid 3 %; Neutrophils Pleural Fluid 45 % (0-25); Nucleated Cell Pleural Fluid 332 /uL (0-1000); RBC Pleural Fluid 4792 /uL (0-0)
[2022-07-10 21:13] LABS: Macrophages Pleural Fluid 11 %
[2022-07-10 21:29] LABS: IFOB Positive Control Positive; Immunochemical Fecal Occult Bl Negative (N)
[2022-07-10] MEDS: CEFEPIME 0.5 GM in DEXTROSE 5% IN WATER 50 ML IVPB (21:41)
[2022-07-11] VITALS (15 sets, daily range): BP systolic 112–137; BP diastolic 64–86; PULSE 82–105; RESP 18–22; TEMP 36.4–37.3; O2SAT 93–100
[2022-07-11] MEDS: VANCOMYCIN ORAL 500 MG/10 ML SYRUP PO ×3 (00:35→12:54)
[2022-07-11] MEDS: ACETAMINOPHEN 325 MG TABLET 650 MG PO (00:45)
[2022-07-11 05:13] LABS: Basophils Percent Auto 0.4 % (0.2-1.2); Eosinophils Absolute Auto 0.1 K/mm3 (0-0.3); Eosinophils Percent Auto 1.9 % (0-4.4); Hematocrit 23.9 % (42.0-52.0); Hemoglobin 7.8 g/dL (14.0-18.0); Immature Granulocyte Absolute 0.03 K/mm3 (0.00-0.031); Immature Granulocyte Percent A 0.6 % (0-0.5); Immature Platelet Fraction Pct 5.6 % (0.9-11.2); Lymphocytes Absolute Auto 0.49 K/mm3 (0.9-3.2); Lymphocytes Percent Auto 9.3 % (18.3-44.2); Mean Corpuscular HGB Conc 32.6 g/dl (32-36); Mean Corpuscular Hemoglobin 33.1 pg (26-34); Mean Corpuscular Volume 101.3 fl (80-100); Mean Platelet Volume 10.5 fl (7.4-10.4); Monocytes Absolute Auto 0.3 K/mm3 (0.1-0.6); Monocytes Percent Auto 5.5 % (2.6-8.5); Neutrophils Absolute Auto 4.3 K/mm3 (1.3-6.7); Neutrophils Percent Auto 82.3 % (45.5-73.1); Platelet Count Result 91 k/mm3 (150-375); Red Blood Count 2.36 M/mm3 (4.6-6.20); Red Cell Distribution Width 18.9 % (11.5-14.5); White Blood Count 5.3 K/mm3 (4.5-10.0)
[2022-07-11] MEDS: metroNIDAZOLE 500 MG/ISO 100ML 500 MG/100 ML BAG 100 MG IVPB ×2 (05:17→14:20)
[2022-07-11] MEDS: LEVOTHYROXINE SODIUM 50 MCG TABLET PO (05:19)
[2022-07-11 05:29] LABS: Alanine Aminotransferase 15 U/L (6-50); Albumin Level 2.4 g/dL (3.5-5.1); Alkaline Phosphatase 61 U/L (38-126); Anion Gap 5 mmol/L (8-16); Aspartate Amino Transferase 25 U/L (17-59); Bilirubin,Total 0.7 mg/dL (0.2-1.3); Blood Urea Nitrogen 24 mg/dL (9-20); Calcium 7.1 mg/dL (8.4-10.2); Carbon Dioxide 22 mmol/L (22-30); Chloride 101 mmol/L (98-107); Estimated CRCL calculation 25 ml/min; Estimated Glomerular Filt Rate 34; Glucose 93 mg/dL (65-110); Sodium 128 mmol/L (137-145)
[2022-07-11 07:45] LABS: Glucose Point of Care 103 mg/dl (65-105)
--- NOTE | 2022-07-11 08:27 | PCPTNOTE ---
Attempted PT Evaluation, patient declined at this time, reports maybe late. RN aware.
--- NOTE | 2022-07-11 08:44 | PCOTNOTE ---
Attempted OT Evaluation, patient declined at this time, reports maybe later.
--- NOTE | 2022-07-11 09:22 | PM.IMPN ---
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, malnutrition, c dif colitis, chronic collagenous colitis, FOBT pending, previously positive at last admission Complicated by malnutrition, FOBT pending, GI consult pending FOBT was positive 06/25 when patient also required a transfusion, hgb stable after that until this morning 07/10: acute drop in hgb to 6.2 from 8.5 at admission, 7.1 yesterday, 2 units pRBC ordered and being given, this also happened during the last admission, GI was consulted, no workup deemed necessary, hgb stable after transfusion last time (06/25/22), blood loss was thought to be secondary to occult bleeding from chronic collagenous colitis complicated by C diff colitis with a fecal occult blood test positive on last admission, repeat fecal occult pending 07/11: Hemoglobin stable at 7.8, was 7.3 after transfusion yesterday, continue to monitor (2) Sepsis: Qualifiers: Sepsis acute organ dysfunction status: with acute organ dysfunction Sepsis type: sepsis due to unspecified organism Severe sepsis acute organ dysfunction type: acute renal failure Severe sepsis shock status: without septic shock Code(s): A41.9 - Sepsis, unspecified organism Status: Acute Assessment and Plan: Continue IV Flagyl and oral vancomycin for C diff colitis, cefepime for Pseudomonas UTI, IV vancomycin for MRSA bacteremia, replete blood cultures from 07/11 pending IV vanc, h/o MRSA bacteremia from last admission that was treated with daptomycin for approximately 14 days, possibly incompletely treated? Blood cultures positive for MRSA again here, source is most likely his central line catheter from the last admission, YOLIS done at last admission was negative for vegetation, will recheck blood cultures today, once blood cultures are negative, at that point would place PICC line and treat for 21 days from negative blood cultures with IV antibiotics due to recurrence and underlying immunocompromised state, would discuss with ID pharmacist best IV medication for this patient, will continue IV vancomycin for now Diarrhea appears to be at baseline, previously on immodium + budesonide for collagenous colitis, held for now due to C diff infection, repeat C diff test pending Thoracentesis performed yesterday, cytology pending Urine culture came back positive for pseudomonas, cont cefepime, would complete a 10-14 day course for this complicated cystitis (3) Pyelonephritis: Code(s): N12 - Tubulo-interstitial nephritis, not specified as acute or chronic Status: Acute Assessment and Plan: Continue cefepime, appreciate Urology consultation, follow urine culture (4) Renal failure: Code(s): N19 - Unspecified kidney failure Status: Acute Assessment and Plan: Improving (5) Hypomagnesemia: Code(s): E83.42 - Hypomagnesemia Status: Acute Assessment and Plan: Improving, monitor (6) C. difficile diarrhea: Code(s): A04.72 - Enterocolitis due to Clostridium difficile, not specified as recurrent Status: Acute Assessment and Plan: Status post Dificid, continue IV Flagyl and p.o. vancomycin C dif positive 06/14/22 Recheck c dif pending (7) Pleural effusion: Code(s): J90 - Pleural effusion, not elsewhere classified Status: Acute Assessment and Plan: Likely secondary to hypoalbuminemia, thoracentesis pending, monitor, follow-up cytology Consider albumin infusions to prevent 3rd spacing (8) Chronic idiopathic thrombocytopenia: Code(s): D69.3 - Immune thrombocytopenic purpura Status: Acute Assessment and Plan: Stable, c
[2022-07-11] MEDS: diphenhydrAMINE HCl INJ 50 MG/ML VIAL IV PUSH (09:44)
[2022-07-11] MEDS: SACCHAROMYCES BOULARDII 250 MG CAPSULE PO ×3 (09:45→20:34)
[2022-07-11] MEDS: MIDODRINE HCL 2.5 MG TABLET PO ×3 (09:45→20:34)
[2022-07-11] MEDS: CALCIUM CARBONATE (OSCAL) 500 MG TABLET PO (09:45)
[2022-07-11] MEDS: ACETAMINOPHEN 500 MG TABLET 1000 MG PO (09:45)
[2022-07-11] MEDS: METOCLOPRAMIDE HCL INJ 10 MG/2 ML VIAL IV PUSH (09:45)
[2022-07-11] MEDS: HYDROCORTISONE/PRAMOXINE 2.5% 30 GM CREAM 1 APPLIC RECTAL (09:46)
[2022-07-11] MEDS: FLUTICASONE PROPIONATE 0.05% NA SPR 16 GM BTL (*BKC) 2 SPRAY NASAL (09:46)
[2022-07-11] MEDS: PANTOPRAZOLE SOD SESQUIHYDRATE 20 MG TAB PO (09:46)
[2022-07-11] MEDS: MAGNESIUM OXIDE 400 MG TABLET PO (09:46)
[2022-07-11] MEDS: FAMOTIDINE 20 MG TABLET PO ×2 (09:46→20:35)
--- NOTE | 2022-07-11 11:07 | PM.PNNEP ---
Progress Note: A&P Assessment and Plan (1) Renal failure: Code(s): N19 - Unspecified kidney failure Status: Acute Assessment and Plan: suffered ZORAN/ARF on last hosptilization due to sepsis creatinine seems to stabilized in the 2ish range by the time of discharge the hope was that his kidney function would continue to improve HOWEVER, it is possible this is his new baseline creatinine and he has left over CKD at this time also, acute illness of this hospitalization could he hampering kidney recover previous evaluation noted: renal ultrasound normal urine electrolytes are pre-renal CPK normal still with significant swelling/edema and pleural effusions suspect still need may diuretic therapy eventually once #2 resolves (2) Sepsis: Qualifiers: Sepsis acute organ dysfunction status: with acute organ dysfunction Sepsis type: sepsis due to unspecified organism Severe sepsis acute organ dysfunction type: acute renal failure Severe sepsis shock status: without septic shock Code(s): A41.9 - Sepsis, unspecified organism Status: Acute Assessment and Plan: as evidence by lactic acidosis, fever, tachycardia, tachypnea, and confusion blood cultures with MRSA and urine culture with Pseudomonas on IV antibiotics follow repeat cultures history of C. diff colitis but no mention of this of CT imaging (3) Pleural effusion: Code(s): J90 - Pleural effusion, not elsewhere classified Status: Acute Assessment and Plan: likely to third spacing from hypoalbuminemia from recent acute illness/hospitalization consider diuresis once #2 improves s/p thoracentesis (on 07/10/22) (4) Hyponatremia: Code(s): E87.1 - Hypo-osmolality and hyponatremia Status: Chronic Assessment and Plan: chronic issue previous evaluation noted: cortisol level low - cosyntropin resulted in a cortisol level [address] of the head + chest x-ray are negative for masses/tumors no history of cancer off PPI likely due to the renal insufficiency and pre renal factors follow trend of sodium (5) Anemia: Qualifiers: Anemia type: other cause Other causes of anemia: chronic disease, other Qualified Code(s): D63.8 - Anemia in other chronic diseases classified elsewhere Code(s): D64.9 - Anemia, unspecified Status: Acute Assessment and Plan: due to ZORAN, possible new CKD, and acute illness currently and from last hospitalization follow trend of H/H PRBC transfusion per protocol consider empiric Epogen therapy (6) C. difficile diarrhea: Code(s): A04.72 - Enterocolitis due to Clostridium difficile, not specified as recurrent Status: Acute Assessment and Plan: continue course or po vancomycin with addition of IV flagyl supportive therapy Will continue to follow Subjective Date/time seen: 07/11/22 11:07 Overall, seems to be doing a bit better; mental status appears back to baseline; still feels weak and tired in general but in no acute distress; no issues/events overnight; family at bedside and we discussed the situation. Exam Narrative: General: ill appearing male laying in bed in NAD Heart: normal S1 and S2; no rub Lungs: bibasilar crackles noted Abdomen: soft, nontender, nondistended, positive bowel sounds Extremities: no cyanosis or clubbing; 2+ edema Skin: warm and dry Objective Data Vital Signs Vital Signs: Vital Signs Temp Pulse Resp BP Pulse Ox O2 Del Method 07/11/22 08:00 87 18 100 Room Air 07/11/22 07:46 37.3 C 87 18 118/64 07/11/22 06:00 84 07/11/22 04:00 Room Air 07/11/22 04:00 82 07/11/22 04:00 36.4 C 87 20 118/68 100 07/11/22 02:00 84 07/11/22 00:00 86 07/11/22 00:00 Room Air 07/10/22 23:12 37.0 C 91 20 135/72 99 07/10/22 22:00 89 07/10/22 20:00 Room Air
--- NOTE | 2022-07-11 11:07 | P.PNNP_ITS ---
Progress Note: A&P Assessment and Plan (1) Renal failure: Code(s): N19 - Unspecified kidney failure Status: Acute Assessment and Plan: * suffered ZORAN/ARF on last hosptilization due to sepsis * creatinine seems to stabilized in the 2ish range by the time of discharge * the hope was that his kidney function would continue to improve * HOWEVER, it is possible this is his new baseline creatinine and he has left over CKD at this time * also, acute illness of this hospitalization could he hampering kidney recover * previous evaluation noted: * renal ultrasound normal * urine electrolytes are pre-renal * CPK normal * still with significant swelling/edema and pleural effusions * suspect still need may diuretic therapy eventually once #2 resolves (2) Sepsis: Qualifiers: Sepsis acute organ dysfunction status: with acute organ dysfunction Sepsis type: sepsis due to unspecified organism Severe sepsis acute organ dysfunction type: acute renal failure Severe sepsis shock status: without septic shock Code(s): A41.9 - Sepsis, unspecified organism Status: Acute Assessment and Plan: * as evidence by lactic acidosis, fever, tachycardia, tachypnea, and confusion * blood cultures with MRSA and urine culture with Pseudomonas * on IV antibiotics * follow repeat cultures * history of C. diff colitis but no mention of this of CT imaging (3) Pleural effusion: Code(s): J90 - Pleural effusion, not elsewhere classified Status: Acute Assessment and Plan: * likely to third spacing from hypoalbuminemia from recent acute illness/hospitalization * consider diuresis once #2 improves * s/p thoracentesis (on 07/10/22) (4) Hyponatremia: Code(s): E87.1 - Hypo-osmolality and hyponatremia Status: Chronic Assessment and Plan: * chronic issue * previous evaluation noted: * cortisol level low - cosyntropin resulted in a cortisol level 31 * TSH is normal * CT of the head + chest x-ray are negative for masses/tumors * no history of cancer * off PPI * likely due to the renal insufficiency and pre renal factors * follow trend of sodium (5) Anemia: Qualifiers: Anemia type: other cause Other causes of anemia: chronic disease, other Qualified Code(s): D63.8 - Anemia in other chronic diseases classified elsewhere Code(s): D64.9 - Anemia, unspecified Status: Acute Assessment and Plan: * due to ZORAN, possible new CKD, and acute illness currently and from last hospitalization * follow trend of H/H * PRBC transfusion per protocol * consider empiric Epogen therapy (6) C. difficile diarrhea: Code(s): A04.72 - Enterocolitis due to Clostridium difficile, not specified as recurrent Status: Acute Assessment and Plan: * continue course or po vancomycin with addition of IV flagyl * supportive therapy Will continue to follow Subjective Date/time seen: 07/11/22 11:07 Overall, seems to be doing a bit better; mental status appears back to baseline; still feels weak and tired in general but in no acute distress; no issues/events overnight; family at bedside and we discussed the situation. Exam Narrative: General: ill appearing male laying in bed in NAD Heart: normal S1 and S2; no rub Lungs: bibasilar crackles noted Abdomen: soft, nontender, nondistended, positive bowel sounds Extremities: no cyanosis or clubbing; 2+ edema Skin: warm and dry Object
[2022-07-11] MEDS: SODIUM CHLORIDE 0.9% IV 1,000 ML 75 ML IV CONT (11:54)
[2022-07-11] MEDS: LIDOCAINE 5% PATCH 1 PATCH TRANSDERM (11:54)
[2022-07-11 12:03] LABS: Glucose Point of Care 103 mg/dl (65-105)
[2022-07-11] MEDS: BENZONATATE 100 MG CAPSULE 200 MG PO ×2 (12:52→20:33)
--- NOTE | 2022-07-11 15:06 | WPDGICN ---
Assessment and Plan Assessment and plan (1) Acute on chronic anemia: Code(s): D64.9 - Anemia, unspecified Status: Acute Assessment and Plan: no overt gib, anemia can be multifactorial recent c diff and already treated- repeat c diff negative (2) Pleural effusion: Code(s): J90 - Pleural effusion, not elsewhere classified Status: Acute Assessment and Plan: s/p thoracentesis (3) Renal failure: Code(s): N19 - Unspecified kidney failure Status: Acute Assessment and Plan: by nephrology (4) Chronic idiopathic thrombocytopenia: Code(s): D69.3 - Immune thrombocytopenic purpura Status: Acute Assessment and Plan: probably also affecting anemia (5) Sepsis: Qualifiers: Sepsis acute organ dysfunction status: with acute organ dysfunction Sepsis type: sepsis due to unspecified organism Severe sepsis acute organ dysfunction type: acute renal failure Severe sepsis shock status: without septic shock Code(s): A41.9 - Sepsis, unspecified organism Status: Acute Assessment and Plan: on abx, improving (6) Pyelonephritis: Code(s): N12 - Tubulo-interstitial nephritis, not specified as acute or chronic Status: Acute (7) Weakness: Code(s): R53.1 - Weakness Status: Acute (8) Atrial fibrillation: Code(s): I48.91 - Unspecified atrial fibrillation Status: Acute GI Consult Note Consult date/time: 07/11/22 15:06 Reason for consult: acute on chronic anemia, previous C diff HPI: Naga De Leon is a 82 year old male with history aortic valve replacement, AFib RVR,? moderate pulmonary hypertension, hypothyroidism, BPH, chronic collagenous colitis and recent prolonged hospitalization for C diff colitis (06/14/2022) treated medically, also had gross hematuria with acute on chronic anemia and noted + FOBT in setting of cdiff. Patient reported colonoscopy last year. This time he was brought back to the ER via EMS from home with lethargy.? He was hospitalized for 3 weeks and was discharged 07/04/2022, family member said that he completed treatment for C diff and has not had more diarrhea. He denies any chills but was found to be febrile with a temperature of 102.9? in the ER.? He received IV Tylenol.? His UA in the ER was suggestive of UTI and a CT scan of the abdomen pelvis demonstrated bilateral pyelonephritis.?Confusion has resolved since, also just underwent thoracentesis and he is breathing better. Drop hb 6.2 from 8, now mid 7 after blood transfusion. No report of overt gib, also has thrombocytopenia 80-90 ? Review of Systems Review of Systems: All systems reviewed & are unremarkable except as noted in HPI and below Constitutional: Constitutional: Denies body ache(s), Denies chills and Reports fatigue Eyes: Eyes: Denies blurry vision ENT: Reports Normal hearing present Cardiovascular: Cardiovascular: Denies chest pain with activity and Reports leg edema Respiratory: Respiratory: Denies cough and Reports dyspnea Gastrointestinal: Gastrointestinal: Denies abdominal pain, Reports diarrhea, Denies nausea and Denies vomiting Genitourinary: Comments: previous hematuria Integumentary/Breasts: Skin/Breast: Denies rash Neurologic: Reports confusion Psychiatric: Psychiatric: Denies suicidal ideation [facility] Past Medical History Medical History (Updated 07/10/22 @ 19:17 by Berna Perales, ) Anemia Aortic valve stenosis Atrial fibrillation Atrial fibrillation with RVR Occurred during admission May 2022 due to sepsis Basal cell carcinoma BPH (benign prostatic hyperplasia) Chronic idiopathic thrombocytopenia Collagenous colitis Resulting in chronic loose stools Coronary artery disease Diastolic dysfunction Echocardiogram 04/2022: EF 70% grade 1 diastolic dysfunction, aortic valve prosthesis with good function, moderate pulmonary hypertension Diastolic heart failure Essential hyper
[2022-07-11] MEDS: ATORVASTATIN 10 MG TABLET PO (20:34)
[2022-07-11] MEDS: TAMSULOSIN HCL 0.4 MG CAPSULE PO (20:34)
[2022-07-11] MEDS: CEFEPIME 0.5 GM in DEXTROSE 5% IN WATER 50 ML IVPB (20:35)
[2022-07-12] VITALS (12 sets, daily range): BP systolic 103–148; BP diastolic 70–86; PULSE 90–128; RESP 18–24; TEMP 36.2–36.6; O2SAT 93–100
[2022-07-12] MEDS: SALINE 0.65% NAS SOLN 44 ML BTL 1 SPRAY NASAL (02:59)
[2022-07-12 04:28] LABS: Basophils Percent Auto 0.2 % (0.2-1.2); Eosinophils Absolute Auto 0.1 K/mm3 (0-0.3); Hematocrit 23.5 % (42.0-52.0); Hemoglobin 7.9 g/dL (14.0-18.0); Immature Granulocyte Absolute 0.02 K/mm3 (0.00-0.031); Immature Granulocyte Percent A 0.4 % (0-0.5); Immature Platelet Fraction Pct 4.5 % (0.9-11.2); Lymphocytes Absolute Auto 0.53 K/mm3 (0.9-3.2); Lymphocytes Percent Auto 11.1 % (18.3-44.2); Mean Corpuscular HGB Conc 33.6 g/dl (32-36); Mean Corpuscular Hemoglobin 33.2 pg (26-34); Mean Corpuscular Volume 98.7 fl (80-100); Monocytes Absolute Auto 0.4 K/mm3 (0.1-0.6); Monocytes Percent Auto 9.2 % (2.6-8.5); Neutrophils Absolute Auto 3.7 K/mm3 (1.3-6.7); Neutrophils Percent Auto 78.1 % (45.5-73.1); Platelet Count Result 97 k/mm3 (150-375); Red Blood Count 2.38 M/mm3 (4.6-6.20); Red Cell Distribution Width 17.9 % (11.5-14.5); White Blood Count 4.8 K/mm3 (4.5-10.0)
[2022-07-12 04:48] LABS: Alanine Aminotransferase 15 U/L (6-50); Albumin Level 2.4 g/dL (3.5-5.1); Alkaline Phosphatase 65 U/L (38-126); Anion Gap 5 mmol/L (8-16); Aspartate Amino Transferase 34 U/L (17-59); Bilirubin,Total 0.6 mg/dL (0.2-1.3); Blood Urea Nitrogen 18 mg/dL (9-20); Carbon Dioxide 20 mmol/L (22-30); Chloride 101 mmol/L (98-107); Estimated CRCL calculation 31 ml/min; Estimated Glomerular Filt Rate 45; Glucose 94 mg/dL (65-110); Potassium 3.8 mmol/L (3.4-5.0); Sodium 126 mmol/L (137-145)
[2022-07-12 04:56] LABS: Anisocytosis 1+ (NORMAL); Platelet Estimate Decreased (Adequate)
[2022-07-12 04:57] LABS: Burr Cells 1+ (NORMAL); Ovalocytes 1+ (NORMAL)
[2022-07-12 04:59] LABS: Schistocytes None Seen (NORMAL)
[2022-07-12] MEDS: SODIUM CHLORIDE 0.9% IV 1,000 ML 75 ML IV CONT (05:13)
[2022-07-12] MEDS: LEVOTHYROXINE SODIUM 50 MCG TABLET PO (05:14)
[2022-07-12] MEDS: FLUTICASONE PROPIONATE 0.05% NA SPR 16 GM BTL (*BKC) 2 SPRAY NASAL (09:07)
[2022-07-12] MEDS: HYDROCORTISONE/PRAMOXINE 2.5% 30 GM CREAM 1 APPLIC RECTAL (09:07)
[2022-07-12] MEDS: LIDOCAINE 5% PATCH 1 PATCH TRANSDERM (09:07)
[2022-07-12] MEDS: MAGNESIUM OXIDE 400 MG TABLET PO (09:09)
[2022-07-12] MEDS: BENZONATATE 100 MG CAPSULE 200 MG PO ×3 (09:09→16:47)
[2022-07-12] MEDS: SACCHAROMYCES BOULARDII 250 MG CAPSULE PO ×3 (09:09→16:47)
[2022-07-12] MEDS: CALCIUM CARBONATE (OSCAL) 500 MG TABLET PO (09:09)
[2022-07-12] MEDS: MIDODRINE HCL 2.5 MG TABLET PO ×3 (09:09→16:47)
[2022-07-12] MEDS: PANTOPRAZOLE SOD SESQUIHYDRATE 20 MG TAB PO (09:09)
[2022-07-12] MEDS: FAMOTIDINE 20 MG TABLET PO ×2 (09:09→21:31)
--- NOTE | 2022-07-12 10:18 | P.PNIM_ITS ---
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, malnutrition, c dif colitis, chronic collagenous colitis, FOBT pending, previously positive at last admission Complicated by malnutrition, FOBT pending, GI consult pending FOBT was positive 06/25 when patient also required a transfusion, hgb stable after that until this morning 07/10: acute drop in hgb to 6.2 from 8.5 at admission, 7.1 yesterday, 2 units pRBC ordered and being given, this also happened during the last admission, GI was consulted, no workup deemed necessary, hgb stable after transfusion last time (06/25/22), blood loss was thought to be secondary to occult bleeding from chronic collagenous colitis complicated by C diff colitis with a fecal occult blood test positive on last admission, repeat fecal occult negative 07/11: Hemoglobin stable at 7.8, was 7.3 after transfusion yesterday, continue to monitor 07/12: Hemoglobin stable at 7.9 today. Eliquis on hold. GI following. Recent C diff colitis. Transfusion of 2 units of PRBC on 07/10/2022. History of chronic collagenous colitis. FOBT negative this admission (2) Sepsis: Qualifiers: Sepsis acute organ dysfunction status: with acute organ dysfunction Sepsis type: sepsis due to unspecified organism Severe sepsis acute organ dysfunction type: acute renal failure Severe sepsis shock status: without septic shock Code(s): A41.9 - Sepsis, unspecified organism Status: Acute Assessment and Plan: Continue IV Flagyl and oral vancomycin for C diff colitis, cefepime for Pseudomonas UTI, IV vancomycin for MRSA bacteremia, replete blood cultures from 07/11 no growth to date IV vanc, h/o MRSA bacteremia from last admission that was treated with d aptomycin for approximately 14 days, possibly incompletely treated? Blood cultures positive for MRSA again here, source is most likely his central line catheter from the last admission, YOLIS done at last admission was negative for vegetation, once blood cultures are negative, at that point would place PICC line and treat for 21 days from negative blood cultures with IV antibiotics due to recurrence and underlying immunocompromised state, would discuss with ID pharmacist best IV medication for this patient, will continue IV vancomycin for now Diarrhea appears to be at baseline, previously on immodium + budesonide for collagenous colitis, held for now due to C diff infection, repeat C diff test pending Thoracentesis performed 07/10: Cytology with mesothelial cells histiocytes and lymphocytes Urine culture came back positive for pseudomonas, cont cefepime, would complete a 10-14 day course for this complicated cystitis (3) Pyelonephritis: Code(s): N12 - Tubulo-interstitial nephritis, not specified as acute or chronic Status: Acute Assessment and Plan: Continue cefepime, appreciate Urology consultation, follow urine culture PVR 80 cc. Continue tamsulosin Nephrology following ZORAN continues to improve. Admission creatinine 2.1 (4) Renal failure: Code(s): N19 - Unspecified kidney failure Status: Acute Assessment and Plan: Improving ZORAN continues to improve. Admission creatinine 2.1 (5) Hypomagnesemia: Code(s): E83.42 - Hypomagnesemia Status: Acute Assessment and Plan: Improving
[2022-07-12] MEDS: VANCOMYCIN ORAL 125 MG/2.5 ML SYRUP PO (12:10)
[2022-07-12] MEDS: FUROSEMIDE 40 MG TABLET PO (12:10)
[2022-07-12] MEDS: ACETAMINOPHEN 500 MG TABLET 1000 MG PO (12:15)
--- NOTE | 2022-07-12 12:56 | P.PNNP_ITS ---
Progress Note: A&P Assessment and Plan (1) Renal failure: Code(s): N19 - Unspecified kidney failure Status: Acute Assessment and Plan: * suffered ZORAN/ARF on last hosptilization due to sepsis * creatinine seems to stabilized in the 2ish range by the time of discharge * the hope was that his kidney function would continue to improve * HOWEVER, it is possible this is his new baseline creatinine and he has left over CKD at this time * also, acute illness of this hospitalization could he hampering kidney recover * previous evaluation noted: * renal ultrasound normal * urine electrolytes are pre-renal * CPK normal * still with significant swelling/edema and pleural effusions * suspect still need may diuretic therapy * seems reasonable to restart diuretics -- one time dose lasix given today * follow I/Os - was previous on bumex on last hospitalization (2) Sepsis: Qualifiers: Sepsis acute organ dysfunction status: with acute organ dysfunction Sepsis type: sepsis due to unspecified organism Severe sepsis acute organ dysfunction type: acute renal failure Severe sepsis shock status: without septic shock Code(s): A41.9 - Sepsis, unspecified organism Status: Acute Assessment and Plan: * as evidence by lactic acidosis, fever, tachycardia, tachypnea, and confusion * blood cultures with MRSA and urine culture with Pseudomonas * on IV antibiotics * follow repeat cultures * history of C. diff colitis but no mention of this of CT imaging (3) Pleural effusion: Code(s): J90 - Pleural effusion, not elsewhere classified Status: Acute Assessment and Plan: * likely to third spacing from hypoalbuminemia from recent acute illness/hospitalization * consider restart diuretics - trial dose of lasix today * s/p thoracentesis (on 07/10/22) (4) Hyponatremia: Code(s): E87.1 - Hypo-osmolality and hyponatremia Status: Chronic Assessment and Plan: * chronic issue * previous evaluation noted: * cortisol level low - cosyntropin resulted in a cortisol level 31 * TSH is normal * CT of the head + chest x-ray are negative for masses/tumors * no history of cancer * off PPI * likely due to the renal insufficiency and volume overload * agree with trial of diuretics * consider switching all IVPB meds to normal saline carrier fluid * follow trend of sodium (5) Anemia: Qualifiers: Anemia type: other cause Other causes of anemia: chronic disease, other Qualified Code(s): D63.8 - Anemia in other chronic diseases classified elsewhere Code(s): D64.9 - Anemia, unspecified Status: Acute Assessment and Plan: * due to ZORAN, possible new CKD, and acute illness currently and from last hospitalization * follow trend of H/H * PRBC transfusion per protocol * consider empiric Epogen therapy (6) C. difficile diarrhea: Code(s): A04.72 - Enterocolitis due to Clostridium difficile, not specified as recurrent Status: Acute Assessment and Plan: * continue course or po vancomycin with addition of IV flagyl * supportive therapy Will continue to follow Subjective Date/time seen: 07/12/22 12:56 Seems to be making slow progress; overall, she feels unchanged in comparison to yesterday; shortness of breath and diarrhea about the same but does feel his lower extremity edema is worse; no apparent distress noted; no issues/events overnight or earlier this morning. Exam Narrative:
--- NOTE | 2022-07-12 12:56 | PM.PNNEP ---
Progress Note: A&P Assessment and Plan (1) Renal failure: Code(s): N19 - Unspecified kidney failure Status: Acute Assessment and Plan: suffered ZORAN/ARF on last hosptilization due to sepsis creatinine seems to stabilized in the 2ish range by the time of discharge the hope was that his kidney function would continue to improve HOWEVER, it is possible this is his new baseline creatinine and he has left over CKD at this time also, acute illness of this hospitalization could he hampering kidney recover previous evaluation noted: renal ultrasound normal urine electrolytes are pre-renal CPK normal still with significant swelling/edema and pleural effusions suspect still need may diuretic therapy seems reasonable to restart diuretics -- one time dose lasix given today follow I/Os - was previous on bumex on last hospitalization (2) Sepsis: Qualifiers: Sepsis acute organ dysfunction status: with acute organ dysfunction Sepsis type: sepsis due to unspecified organism Severe sepsis acute organ dysfunction type: acute renal failure Severe sepsis shock status: without septic shock Code(s): A41.9 - Sepsis, unspecified organism Status: Acute Assessment and Plan: as evidence by lactic acidosis, fever, tachycardia, tachypnea, and confusion blood cultures with MRSA and urine culture with Pseudomonas on IV antibiotics follow repeat cultures history of C. diff colitis but no mention of this of CT imaging (3) Pleural effusion: Code(s): J90 - Pleural effusion, not elsewhere classified Status: Acute Assessment and Plan: likely to third spacing from hypoalbuminemia from recent acute illness/hospitalization consider restart diuretics - trial dose of lasix today s/p thoracentesis (on 07/10/22) (4) Hyponatremia: Code(s): E87.1 - Hypo-osmolality and hyponatremia Status: Chronic Assessment and Plan: chronic issue previous evaluation noted: cortisol level low - cosyntropin resulted in a cortisol level [address] of the head + chest x-ray are negative for masses/tumors no history of cancer off PPI likely due to the renal insufficiency and volume overload agree with trial of diuretics consider switching all IVPB meds to normal saline carrier fluid follow trend of sodium (5) Anemia: Qualifiers: Anemia type: other cause Other causes of anemia: chronic disease, other Qualified Code(s): D63.8 - Anemia in other chronic diseases classified elsewhere Code(s): D64.9 - Anemia, unspecified Status: Acute Assessment and Plan: due to ZORAN, possible new CKD, and acute illness currently and from last hospitalization follow trend of H/H PRBC transfusion per protocol consider empiric Epogen therapy (6) C. difficile diarrhea: Code(s): A04.72 - Enterocolitis due to Clostridium difficile, not specified as recurrent Status: Acute Assessment and Plan: continue course or po vancomycin with addition of IV flagyl supportive therapy Will continue to follow Subjective Date/time seen: 07/12/22 12:56 Seems to be making slow progress; overall, she feels unchanged in comparison to yesterday; shortness of breath and diarrhea about the same but does feel his lower extremity edema is worse; no apparent distress noted; no issues/events overnight or earlier this morning. Exam Narrative: General: ill appearing male laying in bed in NAD Heart: normal S1 and S2; no rub Lungs: bibasilar crackles noted Abdomen: soft, nontender, nondistended, positive bowel sounds Extremities: no cyanosis or clubbing; 2+ edema Skin: warm and dry Objective Data Vital Signs Vital Signs: Vital Signs Temp Pulse Resp BP Pulse Ox O2 Del Method 07/12/22 12:00 36.2 C L 105 H 20 114/86 98 07/12/22 10:18 Room Air 07/12/22 08:00 36.5 C 113 H 24 H 143/76 H
--- NOTE | 2022-07-12 14:41 | WPDGIPROGNO ---
Progress Note: A&P Assessment and Plan (1) Acute on chronic anemia: Code(s): D64.9 - Anemia, unspecified Status: Acute Assessment and Plan: hb stable after blood transfusion, probably multifactorial no plan of scopes unless obvious bleeding he had colonoscopy last year no overt gib and repeat fobt negative (2) Acute UTI: Code(s): N39.0 - Urinary tract infection, site not specified Status: Acute Assessment and Plan: on abx (3) Sepsis: Qualifiers: Sepsis acute organ dysfunction status: with acute organ dysfunction Sepsis type: sepsis due to unspecified organism Severe sepsis acute organ dysfunction type: acute renal failure Severe sepsis shock status: without septic shock Code(s): A41.9 - Sepsis, unspecified organism Status: Acute Assessment and Plan: treated, improved (4) Pleural effusion: Code(s): J90 - Pleural effusion, not elsewhere classified Status: Acute Assessment and Plan: s/p thoracentesis (5) Chronic idiopathic thrombocytopenia: Code(s): 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 difficile diarrhea: Code(s): A04.72 - Enterocolitis due to Clostridium difficile, not specified as recurrent Status: Acute Assessment and Plan: resolved, repeat c diff negative (8) Renal failure: Code(s): N19 - Unspecified kidney failure Status: Acute Assessment and Plan: improving Subjective Date/time seen: 07/12/22 14:41 Interval history: he is feeling much better, in good spirits, denies diarrhea. FOBT + Review of Systems Review of Systems: All systems reviewed & are unremarkable except as noted in HPI and below Exam Narrative: General: Chronically ill-appearing male, alert and oriented per baseline, appears quite weak HEENT: Atraumatic, normocephalic, mucous membranes moist CV: Regular rate and rhythm, S1, S2 Lungs: Diminished throughout, scattered rhonchi, no wheeze Abdomen: Soft, nontender, nondistended Extremities: Normal to inspection, +2 nonpitting edema Skin: No rashes noted, no lesions or wounds seen Psych: Euthymic, good judgment and insight Objective Data Vital Signs Vital Signs: Vital Signs - 24 hr 07/11/22 18:55 07/11/22 20:00 07/11/22 16:00 Temperature 98.6 F 98.4 F Pulse Rate 99 93 86 Respiratory Rate 22 H 20 Blood Pressure 125/69 131/74 Pulse Oximetry 96 Oxygen Delivery 07/11/22 16:00 07/11/22 20:00 07/11/22 20:00 Temperature Pulse Rate 95 95 Respiratory Rate 20 Blood Pressure Pulse Oximetry 96 Oxygen Delivery Room Air Room Air 07/11/22 22:00 07/11/22 23:44 07/12/22 00:00 Temperature 97.8 F Pulse Rate 102 H 105 H 103 H Respiratory Rate 18 Blood Pressure 137/73 Pulse Oximetry 93 Oxygen Delivery 07/12/22 00:00 07/12/22 02:00 07/12/22 04:00 Temperature Pulse Rate 103 H 106 H 108 H Respiratory Rate 18 Blood Pressure Pulse Oximetry 93 Oxygen Delivery Room Air 07/12/22 04:00 07/12/22 04:00 07/12/22 06:00 Temperature 97.6 F Pulse Rate 108 H 109 H 106 H Respiratory Rate 18 18 Blood Pressure 138/70 Pulse Oximetry 93 95 Oxygen Delivery Room Air 07/12/22 08:40 07/12/22 08:00 07/12/22 10:18 Temperature 97.7 F Pulse Rate 113 H Respiratory Rate 24 H Blood Pressure 143/76 H Pulse Oximetry 96 Oxygen Delivery Room Air Room Air 07/12/22 12:00 07/12/22 08:00 Temperature 97.2 F L Pulse Rate 105 H Respiratory Rate 20 Blood Pressure 114/86 Pulse Oximetry 98 Oxygen Delivery Room Air Intake/Output Intake/Output: Intake & Output 07/09/22 07/10/22 07/11/22 07/12/22 23:59 23:59 23:59 23:59 Intake Total 2570 2740 2580 1900 Output Total 1300 1700 1550 800 Balance 1270 1040 1030 1100 Meds/Result
[2022-07-12 20:12] LABS: Vancomycin Trough 13.8 ug/mL (10.0-20.0)
[2022-07-12] MEDS: ZOLPIDEM TARTRATE (*CRX) 5 MG TABLET 10 MG PO (21:31)
[2022-07-12] MEDS: TAMSULOSIN HCL 0.4 MG CAPSULE PO (21:31)
[2022-07-12] MEDS: ATORVASTATIN 10 MG TABLET PO (21:31)
[2022-07-12] MEDS: CEFEPIME 0.5 GM in DEXTROSE 5% IN WATER 50 ML IVPB (21:32)
[2022-07-13] VITALS (12 sets, daily range): BP systolic 128–145; BP diastolic 72–84; PULSE 94–134; RESP 18–28; TEMP 36.4–37; O2SAT 94–99
[2022-07-13 05:16] LABS: Basophils Percent Auto 0.4 % (0.2-1.2); Eosinophils Absolute Auto 0.1 K/mm3 (0-0.3); Hemoglobin 7.7 g/dL (14.0-18.0); Immature Granulocyte Absolute 0.04 K/mm3 (0.00-0.031); Immature Granulocyte Percent A 0.8 % (0-0.5); Lymphocytes Absolute Auto 0.62 K/mm3 (0.9-3.2); Lymphocytes Percent Auto 11.8 % (18.3-44.2); Mean Corpuscular HGB Conc 33.5 g/dl (32-36); Mean Corpuscular Hemoglobin 33.6 pg (26-34); Mean Corpuscular Volume 100.4 fl (80-100); Mean Platelet Volume 10.6 fl (7.4-10.4); Monocytes Absolute Auto 0.4 K/mm3 (0.1-0.6); Monocytes Percent Auto 8.4 % (2.6-8.5); Neutrophils Absolute Auto 4.1 K/mm3 (1.3-6.7); Neutrophils Percent Auto 77.6 % (45.5-73.1); Platelet Count Result 101 k/mm3 (150-375); Red Blood Count 2.29 M/mm3 (4.6-6.20); Red Cell Distribution Width 17.5 % (11.5-14.5); White Blood Count 5.3 K/mm3 (4.5-10.0)
[2022-07-13 05:23] LABS: Alanine Aminotransferase 14 U/L (6-50); Albumin Level 2.3 g/dL (3.5-5.1); Alkaline Phosphatase 64 U/L (38-126); Anion Gap 9 mmol/L (8-16); Aspartate Amino Transferase 27 U/L (17-59); Bilirubin,Total 0.5 mg/dL (0.2-1.3); Blood Urea Nitrogen 14 mg/dL (9-20); Calcium 7.1 mg/dL (8.4-10.2); Carbon Dioxide 22 mmol/L (22-30); Chloride 100 mmol/L (98-107); Estimated CRCL calculation 44 ml/min; Estimated Glomerular Filt Rate 58; Glucose 102 mg/dL (65-110); Magnesium 1.3 mg/dL (1.6-2.3); Potassium 3.4 mmol/L (3.4-5.0); Sodium 131 mmol/L (137-145)
[2022-07-13] MEDS: LEVOTHYROXINE SODIUM 50 MCG TABLET PO (05:45)
[2022-07-13] MEDS: ACETAMINOPHEN 500 MG TABLET 1000 MG PO ×2 (09:21→16:27)
[2022-07-13] MEDS: MAGNESIUM SULF 2 GM/WATER 50ML 2 GM/50 ML BAG IVPB (09:30)
[2022-07-13] MEDS: PHENAZOPYRIDINE HCL 100 MG TABLET PO (09:31)
[2022-07-13] MEDS: BENZONATATE 100 MG CAPSULE 200 MG PO ×3 (09:32→17:29)
[2022-07-13] MEDS: MIDODRINE HCL 2.5 MG TABLET PO (09:33)
[2022-07-13] MEDS: FAMOTIDINE 20 MG TABLET PO ×2 (09:33→21:13)
[2022-07-13] MEDS: SACCHAROMYCES BOULARDII 250 MG CAPSULE PO ×3 (09:33→17:29)
[2022-07-13] MEDS: MAGNESIUM OXIDE 400 MG TABLET PO (09:33)
[2022-07-13] MEDS: FLUTICASONE PROPIONATE 0.05% NA SPR 16 GM BTL (*BKC) 2 SPRAY NASAL (09:34)
[2022-07-13] MEDS: CALCIUM CARBONATE (OSCAL) 500 MG TABLET PO (09:34)
[2022-07-13] MEDS: PANTOPRAZOLE SOD SESQUIHYDRATE 20 MG TAB PO (09:34)
[2022-07-13] MEDS: HYDROCORTISONE/PRAMOXINE 2.5% 30 GM CREAM 1 APPLIC RECTAL (09:36)
[2022-07-13] MEDS: VANCOMYCIN ORAL 125 MG/2.5 ML SYRUP PO (09:45)
--- NOTE | 2022-07-13 12:38 | P.PNNP_ITS ---
Progress Note: A&P Assessment and Plan (1) ZORAN (acute kidney injury): Code(s): N17.9 - Acute kidney failure, unspecified Status: Acute Assessment and Plan: * suffered ZORAN/ARF on last hospitalization due to sepsis * creatinine seems to stabilized in the 2ish range by the time of discharge * the hope was that his kidney function would continue to improve * this appear to be occurring at this time * previous evaluation noted: * renal ultrasound normal * urine electrolytes are pre-renal * CPK normal * still with significant swelling/edema and pleural effusions * suspect still need may diuretic therapy * seems reasonable to restart diuretics * follow I/Os - was previous on bumex on last hospitalization (2) Sepsis: Qualifiers: Sepsis acute organ dysfunction status: with acute organ dysfunction S epsis type: sepsis due to unspecified organism Severe sepsis acute organ d ysfunction type: acute renal failure Severe sepsis shock status: without septic shock Code(s): A41.9 - Sepsis, unspecified organism Status: Acute Assessment and Plan: * as evidence by lactic acidosis, fever, tachycardia, tachypnea, and confusion * blood cultures with MRSA and urine culture with Pseudomonas * on IV antibiotics * follow repeat cultures * history of C. diff colitis but no mention of this of CT imaging (3) Pleural effusion: Code(s): J90 - Pleural effusion, not elsewhere classified Status: Acute Assessment and Plan: * likely to third spacing from hypoalbuminemia from recent acute illness/hospitalization * consider restart diuretics - trial dose of lasix today * s/p thoracentesis (on 07/10/22) (4) Hyponatremia: Code(s): E87.1 - Hypo-osmolality and hyponatremia Status: Chronic Assessment and Plan: * chronic issue * previous evaluation noted: * cortisol level low - cosyntropin resulted in a cortisol level 31 * TSH is normal * CT of the head + chest x-ray are negative for masses/tumors * no history of cancer * off PPI * likely due to the renal insufficiency and volume overload * agree with trial of diuretics * consider switching all IVPB meds to normal saline carrier fluid * follow trend of sodium (5) Anemia: Qualifiers: Anemia type: other cause Other causes of anemia: chronic disease, other Qualified Code(s): D63.8 - Anemia in other chronic diseases classified elsewhere Code(s): D64.9 - Anemia, unspecified Status: Acute Assessment and Plan: * due to ZORAN, possible new CKD, and acute illness currently and from last hospitalization * follow trend of H/H * PRBC transfusion per protocol * consider empiric Epogen therapy (6) C. difficile diarrhea: Code(s): A04.72 - Enterocolitis due to Clostridium difficile, not specified as recurrent Status: Acute Assessment and Plan: * continue course or po vancomycin with addition of IV flagyl * supportive therapy Will continue to follow Subjective Date/time seen: 07/13/22 12:38 Renal function appears to be improving although in general, she states feels unchanged -- still with some issues related to LE edema in association with mild discomfort; shortnes of breath still present but seems more associated with exertion; no events overnight or earlier this morning. Exam Narrative: General: ill appearing male laying in bed in NAD Heart: normal S1 and S2; no rub Lungs: few bibasilar crackles noted Abdomen: soft, non
--- NOTE | 2022-07-13 12:38 | PM.PNNEP ---
Progress Note: A&P Assessment and Plan (1) ZORAN (acute kidney injury): Code(s): N17.9 - Acute kidney failure, unspecified Status: Acute Assessment and Plan: suffered ZORAN/ARF on last hospitalization due to sepsis creatinine seems to stabilized in the 2ish range by the time of discharge the hope was that his kidney function would continue to improve this appear to be occurring at this time previous evaluation noted: renal ultrasound normal urine electrolytes are pre-renal CPK normal still with significant swelling/edema and pleural effusions suspect still need may diuretic therapy seems reasonable to restart diuretics follow I/Os - was previous on bumex on last hospitalization (2) Sepsis: Qualifiers: Sepsis acute organ dysfunction status: with acute organ dysfunction Sepsis type: sepsis due to unspecified organism Severe sepsis acute organ dysfunction type: acute renal failure Severe sepsis shock status: without septic shock Code(s): A41.9 - Sepsis, unspecified organism Status: Acute Assessment and Plan: as evidence by lactic acidosis, fever, tachycardia, tachypnea, and confusion blood cultures with MRSA and urine culture with Pseudomonas on IV antibiotics follow repeat cultures history of C. diff colitis but no mention of this of CT imaging (3) Pleural effusion: Code(s): J90 - Pleural effusion, not elsewhere classified Status: Acute Assessment and Plan: likely to third spacing from hypoalbuminemia from recent acute illness/hospitalization consider restart diuretics - trial dose of lasix today s/p thoracentesis (on 07/10/22) (4) Hyponatremia: Code(s): E87.1 - Hypo-osmolality and hyponatremia Status: Chronic Assessment and Plan: chronic issue previous evaluation noted: cortisol level low - cosyntropin resulted in a cortisol level [address] of the head + chest x-ray are negative for masses/tumors no history of cancer off PPI likely due to the renal insufficiency and volume overload agree with trial of diuretics consider switching all IVPB meds to normal saline carrier fluid follow trend of sodium (5) Anemia: Qualifiers: Anemia type: other cause Other causes of anemia: chronic disease, other Qualified Code(s): D63.8 - Anemia in other chronic diseases classified elsewhere Code(s): D64.9 - Anemia, unspecified Status: Acute Assessment and Plan: due to ZORAN, possible new CKD, and acute illness currently and from last hospitalization follow trend of H/H PRBC transfusion per protocol consider empiric Epogen therapy (6) C. difficile diarrhea: Code(s): A04.72 - Enterocolitis due to Clostridium difficile, not specified as recurrent Status: Acute Assessment and Plan: continue course or po vancomycin with addition of IV flagyl supportive therapy Will continue to follow Subjective Date/time seen: 07/13/22 12:38 Renal function appears to be improving although in general, she states feels unchanged -- still with some issues related to LE edema in association with mild discomfort; shortnes of breath still present but seems more associated with exertion; no events overnight or earlier this morning. Exam Narrative: General: ill appearing male laying in bed in NAD Heart: normal S1 and S2; no rub Lungs: few bibasilar crackles noted Abdomen: soft, nontender, nondistended, positive bowel sounds Extremities: no cyanosis or clubbing; 2+ edema Skin: warm and intact Objective Data Vital Signs Vital Signs: Vital Signs Temp Pulse Resp BP Pulse Ox O2 Del Method 07/13/22 12:00 36.4 C 108 H 20 128/72 97 07/13/22 08:00 Room Air 07/13/22 07:56 37.0 C 125 H 28 H 145/82 H 95 07/13/22 06:00 116 H 07/13/22 04:00 36.4 C L 122 H 18 129/73 94 07/13/22 04:00 124 H 18 98 Room Air
--- NOTE | 2022-07-13 13:24 | WPDGIPROGNO ---
Progress Note: A&P Assessment and Plan (1) Acute on chronic anemia: Code(s): D64.9 - Anemia, unspecified Status: Acute Assessment and Plan: hb low but has been stable after blood transfusion, probably multifactorial no plan of scopes unless obvious bleeding, had negative fobt this time, denies overt gib he had colonoscopy last year no more diarrhea and repeat c diff negative will follow from af[place] (2) Acute UTI: Code(s): N39.0 - Urinary tract infection, site not specified Status: Acute Assessment and Plan: on abx (3) Sepsis: Qualifiers: Sepsis acute organ dysfunction status: with acute organ dysfunction Sepsis type: sepsis due to unspecified organism Severe sepsis acute organ dysfunction type: acute renal failure Severe sepsis shock status: without septic shock Code(s): A41.9 - Sepsis, unspecified organism Status: Acute Assessment and Plan: treated, improved (4) Pleural effusion: Code(s): J90 - Pleural effusion, not elsewhere classified Status: Acute Assessment and Plan: s/p thoracentesis (5) Chronic idiopathic thrombocytopenia: Code(s): 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 difficile diarrhea: Code(s): A04.72 - Enterocolitis due to Clostridium difficile, not specified as recurrent Status: Acute Assessment and Plan: resolved, repeat c diff negative Subjective Date/time seen: 07/13/22 13:24 Interval history: no diarrhea only soft stools, eating, no signs of bleeding. He is participating more with physical therapy but still tired Review of Systems Review of Systems: All systems reviewed & are unremarkable except as noted in HPI and below Exam Narrative: General: Chronically ill-appearing male, alert and oriented per baseline, appears quite weak HEENT: Atraumatic, normocephalic, mucous membranes moist CV: Regular rate and rhythm, S1, S2 Lungs: Diminished throughout, scattered rhonchi, no wheeze Abdomen: Soft, nontender, nondistended Extremities: Normal to inspection, +2 nonpitting edema Skin: No rashes noted, no lesions or wounds seen Psych: Euthymic, good judgment and insight Objective Data Vital Signs Vital Signs: Vital Signs - 24 hr 07/12/22 16:00 07/12/22 14:00 07/12/22 16:00 Temperature 97.6 F Pulse Rate 90 90 90 Respiratory Rate 20 Blood Pressure 103/81 Pulse Oximetry 100 Oxygen Delivery 07/12/22 16:00 07/12/22 18:00 07/12/22 20:00 Temperature 97.8 F Pulse Rate 109 H 107 H Respiratory Rate 18 Blood Pressure 148/73 H Pulse Oximetry 96 Oxygen Delivery Room Air 07/12/22 20:00 07/12/22 20:00 07/12/22 22:00 Temperature Pulse Rate 106 H 106 H 128 H Respiratory Rate 18 Blood Pressure Pulse Oximetry 96 Oxygen Delivery Room Air 07/13/22 00:00 07/13/22 00:00 07/13/22 00:00 Temperature 97.8 F Pulse Rate 129 H 132 H 132 H Respiratory Rate 18 18 Blood Pressure 134/84 Pulse Oximetry 98 98 Oxygen Delivery Room Air 07/13/22 02:00 07/13/22 04:00 07/13/22 04:00 Temperature Pulse Rate 128 H 124 H 124 H Respiratory Rate 18 Blood Pressure Pulse Oximetry 98 Oxygen Delivery Room Air 07/13/22 04:00 07/13/22 06:00 07/13/22 07:56 Temperature 97.5 F L 98.6 F Pulse Rate 122 H 116 H 125 H Respiratory Rate 18 28 H Blood Pressure 129/73 145/82 H Pulse Oximetry 94 95 Oxygen Delivery 07/13/22 08:00 07/13/22 12:00 Temperature 97.6 F Pulse Rate 108 H Respiratory Rate 20 Blood Pressure 128/72 Pulse Oximetry 97 Oxygen Delivery Room Air Intake/Output Intake/Output: Intake & Output 07/10/22 07/11/22 07/12/22 07/13/22 23:59 23:59 23:59 23:59 Intake Total 2740 2580 3540 120 Output Total 1700 1550 1225 200 Balance 1040 1030 2315 -80
--- NOTE | 2022-07-13 13:57 | PM.IMPN ---
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, malnutrition, c dif colitis, chronic collagenous colitis, FOBT pending, previously positive at last admission Complicated by malnutrition, FOBT pending, GI consult pending FOBT was positive 06/25 when patient also required a transfusion, hgb stable after that until this morning 07/10: acute drop in hgb to 6.2 from 8.5 at admission, 7.1 yesterday, 2 units pRBC ordered and being given, this also happened during the last admission, GI was consulted, no workup deemed necessary, hgb stable after transfusion last time (06/25/22), blood loss was thought to be secondary to occult bleeding from chronic collagenous colitis complicated by C diff colitis with a fecal occult blood test positive on last admission, repeat fecal occult negative 07/11: Hemoglobin stable at 7.8, was 7.3 after transfusion yesterday, continue to monitor 07/12: Hemoglobin stable at 7.9 today. Eliquis on hold. GI following. Recent C diff colitis. Transfusion of 2 units of PRBC on 07/10/2022. History of chronic collagenous colitis. FOBT negative this admission. 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 Blood cultures positive for MRSA again here, source is most likely his central line catheter from the last admission, YOLIS done at last admission was negative for vegetation, once blood cultures are negative, at that point would place PICC line and treat for 21 days from negative blood cultures with IV antibiotics due to recurrence and underlying immunocompromised state, would discuss with ID pharmacist best IV medication for this patient, will continue IV vancomycin for now Diarrhea appears to be at baseline, previously on immodium + budesonide for collagenous colitis, held for now due to C diff infection, repeat C diff test pending Thoracentesis performed 07/10: Cytology with mesothelial cells histiocytes and lymphocytes Urine culture came back positive for pseudomonas, cont cefepime, would complete a 10-14 day course for this complicated cystitis (3) Pyelonephritis: Code(s): N12 - Tubulo-interstitial nephritis, not specified as acute or chronic Status: Acute Assessment and Plan: Continue cefepime, appreciate Urology consultation, follow urine culture PVR 80 cc. Continue tamsulosin Nephrology following ZORAN continues to improve. Admission creatinine 2.1 (4) Renal failure: Code(s): N19 - Unspecified kidney failure Status: Acute Assessment and Plan: Improving ZORAN continues to improve. Admission creatinine 2.1 (5) Hypomagnesemia: Code(s): E83.42 - Hypomagnesemia Status: Acute Assessment and Plan: Improving, monitor (6) C. difficile diarrhea: Code(s): A04.72 - Enterocolitis due to Clostridium difficile, not specified as recurrent Status: Acute Assessment and Plan: Status post Dificid, continue IV Flagyl and p.o. vancomycin C dif positive 06/14/22 Recheck c dif pending (7) Pleural effusion:
[2022-07-13 19:39] LABS: Glucose Pleural Fluid 108 mg/dL; LDH Pleural Fluid 97 U/L; Total Protein Pleural Fluid <3.0 g/dL
[2022-07-13] MEDS: ZOLPIDEM TARTRATE (*CRX) 5 MG TABLET 10 MG PO (21:13)
[2022-07-13] MEDS: ATORVASTATIN 10 MG TABLET PO (21:13)
[2022-07-13] MEDS: TAMSULOSIN HCL 0.4 MG CAPSULE PO (21:14)
[2022-07-13] MEDS: APIXABAN 2.5 MG TABLET PO (21:14)
[2022-07-13] MEDS: CEFEPIME 0.5 GM in DEXTROSE 5% IN WATER 50 ML IVPB (21:14)
[2022-07-14] VITALS (12 sets, daily range): BP systolic 129–154; BP diastolic 67–87; PULSE 88–121; RESP 16–20; TEMP 36.1–36.8; O2SAT 95–100
[2022-07-14 05:40] LABS: Basophils Percent Auto 0.5 % (0.2-1.2); Eosinophils Absolute Auto 0.1 K/mm3 (0-0.3); Eosinophils Percent Auto 2.1 % (0-4.4); Hematocrit 24.7 % (42.0-52.0); Immature Granulocyte Absolute 0.03 K/mm3 (0.00-0.031); Immature Granulocyte Percent A 0.5 % (0-0.5); Immature Platelet Fraction Pct 4.6 % (0.9-11.2); Lymphocytes Absolute Auto 0.63 K/mm3 (0.9-3.2); Lymphocytes Percent Auto 10.1 % (18.3-44.2); Mean Corpuscular HGB Conc 32.4 g/dl (32-36); Mean Corpuscular Hemoglobin 32.9 pg (26-34); Mean Corpuscular Volume 101.6 fl (80-100); Mean Platelet Volume 10.4 fl (7.4-10.4); Monocytes Absolute Auto 0.5 K/mm3 (0.1-0.6); Neutrophils Absolute Auto 4.9 K/mm3 (1.3-6.7); Neutrophils Percent Auto 78.8 % (45.5-73.1); Platelet Count Result 124 k/mm3 (150-375); Red Blood Count 2.43 M/mm3 (4.6-6.20); Red Cell Distribution Width 17.3 % (11.5-14.5); White Blood Count 6.3 K/mm3 (4.5-10.0)
[2022-07-14] MEDS: LEVOTHYROXINE SODIUM 50 MCG TABLET PO (05:59)
[2022-07-14 06:47] LABS: Alanine Aminotransferase 16 U/L (6-50); Albumin Level 2.5 g/dL (3.5-5.1); Alkaline Phosphatase 73 U/L (38-126); Anion Gap 6 mmol/L (8-16); Aspartate Amino Transferase 28 U/L (17-59); Bilirubin,Total 0.6 mg/dL (0.2-1.3); Blood Urea Nitrogen 12 mg/dL (9-20); Calcium 7.5 mg/dL (8.4-10.2); Carbon Dioxide 22 mmol/L (22-30); Chloride 101 mmol/L (98-107); Estimated CRCL calculation 45 ml/min; Estimated Glomerular Filt Rate 58; Glucose 102 mg/dL (65-110); Magnesium 1.6 mg/dL (1.6-2.3); Potassium 3.7 mmol/L (3.4-5.0); Sodium 129 mmol/L (137-145)
--- NOTE | 2022-07-14 09:17 | PCOTNOTE ---
Attempted to see patient this am, however patient declined. Upon entering patient sitting up in chair. Declined bathing stating, I already did that yesterday. Pt declined oral care stating, I just want to sit here right now. What can we do here? Encouraged upper extremity exercises to aid in decrease swelling, however patient stated, I don't want to do that. My arms hurt. You see that ring up there? I've been using it to pull myself up, and I'm not used to that. Pt not seen today for this reason. Will continue to follow with plan of care.
[2022-07-14] MEDS: APIXABAN 2.5 MG TABLET PO ×2 (11:03→20:49)
[2022-07-14] MEDS: CALCIUM CARBONATE (OSCAL) 500 MG TABLET PO (11:03)
[2022-07-14] MEDS: BENZONATATE 100 MG CAPSULE 200 MG PO ×2 (11:03→17:26)
[2022-07-14] MEDS: PANTOPRAZOLE SOD SESQUIHYDRATE 20 MG TAB PO (11:03)
[2022-07-14] MEDS: FAMOTIDINE 20 MG TABLET PO ×2 (11:03→20:49)
[2022-07-14] MEDS: FLUTICASONE PROPIONATE 0.05% NA SPR 16 GM BTL (*BKC) 2 SPRAY NASAL (11:03)
[2022-07-14] MEDS: LIDOCAINE 5% PATCH 1 PATCH TRANSDERM (11:03)
[2022-07-14] MEDS: HYDROCORTISONE/PRAMOXINE 2.5% 30 GM CREAM 1 APPLIC RECTAL (11:03)
[2022-07-14] MEDS: MAGNESIUM OXIDE 400 MG TABLET PO (11:03)
[2022-07-14] MEDS: VANCOMYCIN ORAL 125 MG/2.5 ML SYRUP PO (11:04)
[2022-07-14] MEDS: SACCHAROMYCES BOULARDII 250 MG CAPSULE PO ×2 (11:04→17:26)
--- NOTE | 2022-07-14 12:38 | P.PNNP_ITS ---
Progress Note: A&P Assessment and Plan (1) ZORAN (acute kidney injury): Code(s): N17.9 - Acute kidney failure, unspecified Status: Acute Assessment and Plan: * suffered ZORAN/ARF on last hospitalization due to sepsis * creatinine seems to stabilized in the 2ish range by the time of discharge * the hope was that his kidney function would continue to improve * this appear to be occurring at this time * previous evaluation noted: * renal ultrasound normal * urine electrolytes are pre-renal * CPK normal * still with significant swelling/edema and pleural effusions * suspect still need may diuretic therapy * dose with IV bumex today * follow I/Os - was previous on bumex on last hospitalization (2) Sepsis: Qualifiers: Sepsis acute organ dysfunction status: with acute organ dysfunction Sepsis type: sepsis due to unspecified organism Severe sepsis acute organ dysfunction type: acute renal failure Severe sepsis shock status: without sep tic shock Code(s): A41.9 - Sepsis, unspecified organism Status: Acute Assessment and Plan: * as evidence by lactic acidosis, fever, tachycardia, tachypnea, and confusion * blood cultures with MRSA and urine culture with Pseudomonas * on IV antibiotics * follow repeat cultures * history of C. diff colitis but no mention of this of CT imaging (3) Pleural effusion: Code(s): J90 - Pleural effusion, not elsewhere classified Status: Acute Assessment and Plan: * likely to third spacing from hypoalbuminemia from recent acute illness/hospitalization * consider restart diuretics - trial dose of IV bumex today * s/p thoracentesis (on 07/10/22) (4) Hyponatremia: Code(s): E87.1 - Hypo-osmolality and hyponatremia Status: Chronic Assessment and Plan: * chronic issue * previous evaluation noted: * cortisol level low - cosyntropin resulted in a cortisol level 31 * TSH is normal * CT of the head + chest x-ray are negative for masses/tumors * no history of cancer * off PPI * likely due to the renal insufficiency and volume overload * continue trial of diuretics -- IV bumex today * consider switching all IVPB meds to normal saline carrier fluid if sodium declines further * follow trend of sodium (5) Anemia: Qualifiers: Anemia type: other cause Other causes of anemia: chronic disease, other Qualified Code(s): D63.8 - Anemia in other chronic diseases classified elsewhere Code(s): D64.9 - Anemia, unspecified Status: Acute Assessment and Plan: * due to ZORAN, possible new CKD, and acute illness currently and from last hospitalization * follow trend of H/H * PRBC transfusion per protocol * consider empiric Epogen therapy (6) C. difficile diarrhea: Code(s): A04.72 - Enterocolitis due to Clostridium difficile, not specified as recurrent Status: Acute Assessment and Plan: * continue course or po vancomycin with addition of IV flagyl * supportive therapy Will continue to follow Subjective Date/time seen: 07/14/22 12:38 Kidney function remains relatively stable but still has significant edema at this time; better urine output with IV diuretic trial; no other acute issues/events overnight or earlier this AM; breathing seems about the same (no better and no worse). Exam Narrative: General: ill appearing male laying in bed in NAD Heart: normal S1 and S2; no rub Lungs: few bibasilar crackles noted Abdomen: soft, nont
--- NOTE | 2022-07-14 12:38 | PM.PNNEP ---
Progress Note: A&P Assessment and Plan (1) ZORAN (acute kidney injury): Code(s): N17.9 - Acute kidney failure, unspecified Status: Acute Assessment and Plan: suffered ZORAN/ARF on last hospitalization due to sepsis creatinine seems to stabilized in the 2ish range by the time of discharge the hope was that his kidney function would continue to improve this appear to be occurring at this time previous evaluation noted: renal ultrasound normal urine electrolytes are pre-renal CPK normal still with significant swelling/edema and pleural effusions suspect still need may diuretic therapy dose with IV bumex today follow I/Os - was previous on bumex on last hospitalization (2) Sepsis: Qualifiers: Sepsis acute organ dysfunction status: with acute organ dysfunction Sepsis type: sepsis due to unspecified organism Severe sepsis acute organ dysfunction type: acute renal failure Severe sepsis shock status: without septic shock Code(s): A41.9 - Sepsis, unspecified organism Status: Acute Assessment and Plan: as evidence by lactic acidosis, fever, tachycardia, tachypnea, and confusion blood cultures with MRSA and urine culture with Pseudomonas on IV antibiotics follow repeat cultures history of C. diff colitis but no mention of this of CT imaging (3) Pleural effusion: Code(s): J90 - Pleural effusion, not elsewhere classified Status: Acute Assessment and Plan: likely to third spacing from hypoalbuminemia from recent acute illness/hospitalization consider restart diuretics - trial dose of IV bumex today s/p thoracentesis (on 07/10/22) (4) Hyponatremia: Code(s): E87.1 - Hypo-osmolality and hyponatremia Status: Chronic Assessment and Plan: chronic issue previous evaluation noted: cortisol level low - cosyntropin resulted in a cortisol level [address] of the head + chest x-ray are negative for masses/tumors no history of cancer off PPI likely due to the renal insufficiency and volume overload continue trial of diuretics -- IV bumex today consider switching all IVPB meds to normal saline carrier fluid if sodium declines further follow trend of sodium (5) Anemia: Qualifiers: Anemia type: other cause Other causes of anemia: chronic disease, other Qualified Code(s): D63.8 - Anemia in other chronic diseases classified elsewhere Code(s): D64.9 - Anemia, unspecified Status: Acute Assessment and Plan: due to OZRAN, possible new CKD, and acute illness currently and from last hospitalization follow trend of H/H PRBC transfusion per protocol consider empiric Epogen therapy (6) C. difficile diarrhea: Code(s): A04.72 - Enterocolitis due to Clostridium difficile, not specified as recurrent Status: Acute Assessment and Plan: continue course or po vancomycin with addition of IV flagyl supportive therapy Will continue to follow Subjective Date/time seen: 07/14/22 12:38 Kidney function remains relatively stable but still has significant edema at this time; better urine output with IV diuretic trial; no other acute issues/events overnight or earlier this AM; breathing seems about the same (no better and no worse). Exam Narrative: General: ill appearing male laying in bed in NAD Heart: normal S1 and S2; no rub Lungs: few bibasilar crackles noted Abdomen: soft, nontender, nondistended, positive bowel sounds Extremities: no cyanosis or clubbing; 2+ edema Skin: warm and intact Objective Data Vital Signs Vital Signs: Vital Signs Temp Pulse Resp BP Pulse Ox O2 Del Method 07/14/22 12:00 36.6 C 110 H 20 143/83 H 100 07/14/22 08:00 36.1 C L 112 H 20 129/84 97 07/14/22 05:37 112 H 07/14/22 04:00 114 H 20 95 Room Air 07/14/22 04:00 114 H 07/14/22 04:00 36.6 C 121 H 20 141/74 H 95 07/14/22 0
--- NOTE | 2022-07-14 13:05 | P.PNIM_ITS ---
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, malnutrition, c dif colitis, chronic collagenous colitis, FOBT pending, previously positive at last admission Complicated by malnutrition, FOBT pending, GI consult pending FOBT was positive 06/25 when patient also required a transfusion, hgb stable after that until this morning 07/10: acute drop in hgb to 6.2 from 8.5 at admission, 7.1 yesterday, 2 units pRBC ordered and being given, this also happened during the last admission, GI was consulted, no workup deemed necessary, hgb stable after transfusion last time (06/25/22), blood loss was thought to be secondary to occult bleeding from chronic collagenous colitis complicated by C diff colitis with a fecal occult blood test positive on last admission, repeat fecal occult negative 07/11: Hemoglobin stable at 7.8, was 7.3 after transfusion yesterday, continue to monitor 07/12: Hemoglobin stable at 7.9 today. Eliquis on hold. GI following. Recent C diff colitis. Transfusion of 2 units of PRBC on 07/10/2022. History of chronic collagenous colitis. FOBT negative this admission. 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 Blood cultures positive for MRSA again here, source is most likely his central line catheter from the last admission, YOLIS done at last admission was negative for vegetation, once blood cultures are negative, at that point would place PICC line and treat for 21 days from negative blood cultures with IV antibiotics due to recurrence and underlying immunocompromised state, would discuss with ID pharmacist best IV medication for this patient, will continue IV vancomycin for now Diarrhea appears to be at baseline, previously on immodium + budesonide for collagenous colitis, held for now due to C diff infection, repeat C diff test pending Thoracentesis performed 07/10: Cytology with mesothelial cells histiocytes and lymphocytes Urine culture came back positive for pseudomonas, cont cefepime, would complete a 7 day course (3) Pyelonephritis: Code(s): N12 - Tubulo-interstitial nephritis, not specified as acute or chronic Status: Acute Assessment and Plan: Continue cefepime, appreciate Urology consultation, follow urine culture PVR 80 cc. Continue tamsulosin Nephrology following ZORAN continues to improve. Admission creatinine 2.1 (4) Renal failure: Code(s): N19 - Unspecified kidney failure Status: Acute Assessment and Plan: Improving ZORAN continues to improve. Admission creatinine 2.1 (5) Hypomagnesemia: Code(s): E83.42 - Hypomagnesemia Status: Acute Assessment and Plan: Improving, monitor
[2022-07-14] MEDS: FUROSEMIDE 40 MG TABLET PO (13:30)
[2022-07-14] MEDS: ALBUTEROL SULFATE NEB 2.5 MG/3 ML INH INHALATION ×2 (14:12→20:49)
[2022-07-14] MEDS: IPRATROPIUM BR 0.02% INH SOLN 0.5 MG/2.5 ML VIAL INHALATION ×2 (14:12→20:49)
[2022-07-14] MEDS: BUMETANIDE INJ 1 MG/4 ML VIAL 1.5 MG IV PUSH (17:00)
[2022-07-14] MEDS: ACETAMINOPHEN 500 MG TABLET 1000 MG PO (17:26)
[2022-07-14] MEDS: METOPROLOL TARTRATE 12.5 MG TABLET PO (17:30)
[2022-07-14] MEDS: ATORVASTATIN 10 MG TABLET PO (20:49)
[2022-07-14] MEDS: TAMSULOSIN HCL 0.4 MG CAPSULE PO (20:49)
[2022-07-14] MEDS: CEFEPIME 0.5 GM in DEXTROSE 5% IN WATER 50 ML IVPB (20:50)
[2022-07-14] MEDS: ZOLPIDEM TARTRATE (*CRX) 5 MG TABLET 10 MG PO (23:43)
[2022-07-15] VITALS (18 sets, daily range): BP systolic 127–132; BP diastolic 68–86; PULSE 90–116; RESP 16–20; TEMP 36.2–36.5; O2SAT 95–99
[2022-07-15] MEDS: IPRATROPIUM BR 0.02% INH SOLN 0.5 MG/2.5 ML VIAL INHALATION ×3 (02:28→19:42)
[2022-07-15] MEDS: ALBUTEROL SULFATE NEB 2.5 MG/3 ML INH INHALATION ×3 (02:28→19:42)
[2022-07-15 03:41] LABS: Basophils Percent Auto 0.5 % (0.2-1.2); Eosinophils Absolute Auto 0.1 K/mm3 (0-0.3); Eosinophils Percent Auto 1.8 % (0-4.4); Hematocrit 22.9 % (42.0-52.0); Hemoglobin 7.5 g/dL (14.0-18.0); Immature Granulocyte Absolute 0.04 K/mm3 (0.00-0.031); Lymphocytes Absolute Auto 0.77 K/mm3 (0.9-3.2); Lymphocytes Percent Auto 20.2 % (18.3-44.2); Mean Corpuscular HGB Conc 32.8 g/dl (32-36); Mean Corpuscular Hemoglobin 33.2 pg (26-34); Mean Corpuscular Volume 101.3 fl (80-100); Mean Platelet Volume 10.5 fl (7.4-10.4); Monocytes Absolute Auto 0.3 K/mm3 (0.1-0.6); Monocytes Percent Auto 8.1 % (2.6-8.5); Neutrophils Absolute Auto 2.6 K/mm3 (1.3-6.7); Neutrophils Percent Auto 68.4 % (45.5-73.1); Platelet Count Result 104 k/mm3 (150-375); Red Blood Count 2.26 M/mm3 (4.6-6.20); Red Cell Distribution Width 17.7 % (11.5-14.5); White Blood Count 3.8 K/mm3 (4.5-10.0)
[2022-07-15 03:54] LABS: Alanine Aminotransferase 18 U/L (6-50); Albumin Level 2.5 g/dL (3.5-5.1); Alkaline Phosphatase 75 U/L (38-126); Anion Gap 5 mmol/L (8-16); Aspartate Amino Transferase 27 U/L (17-59); Bilirubin,Total 0.6 mg/dL (0.2-1.3); Blood Urea Nitrogen 11 mg/dL (9-20); Calcium 7.5 mg/dL (8.4-10.2); Carbon Dioxide 26 mmol/L (22-30); Chloride 100 mmol/L (98-107); Estimated CRCL calculation 45 ml/min; Estimated Glomerular Filt Rate 58; Glucose 97 mg/dL (65-110); Potassium 3.6 mmol/L (3.4-5.0); Sodium 131 mmol/L (137-145)
[2022-07-15 04:22] LABS: Vancomycin Trough 20.5 ug/mL (10.0-20.0)
[2022-07-15] MEDS: LEVOTHYROXINE SODIUM 50 MCG TABLET PO (05:28)
--- NOTE | 2022-07-15 06:14 | PC.NURSE ---
This patient, Naga De Leon, was transferred to room 301 on 07/15/22 at 0600. Personal belongings sent with patient. Report given to LORELEI Powers. Appropriate documentation sent with patient.
[2022-07-15] MEDS: ACETAMINOPHEN 500 MG TABLET 1000 MG PO (09:59)
[2022-07-15] MEDS: METOPROLOL TARTRATE 12.5 MG TABLET PO ×2 (10:00→20:49)
[2022-07-15] MEDS: SACCHAROMYCES BOULARDII 250 MG CAPSULE PO ×3 (10:00→16:12)
[2022-07-15] MEDS: PANTOPRAZOLE SOD SESQUIHYDRATE 20 MG TAB PO (10:00)
[2022-07-15] MEDS: FLUTICASONE PROPIONATE 0.05% NA SPR 16 GM BTL (*BKC) 2 SPRAY NASAL (10:00)
[2022-07-15] MEDS: MAGNESIUM OXIDE 400 MG TABLET PO (10:00)
[2022-07-15] MEDS: APIXABAN 2.5 MG TABLET PO ×2 (10:00→20:47)
[2022-07-15] MEDS: FAMOTIDINE 20 MG TABLET PO ×2 (10:01→20:48)
[2022-07-15] MEDS: HYDROCORTISONE/PRAMOXINE 2.5% 30 GM CREAM 1 APPLIC RECTAL (10:01)
[2022-07-15] MEDS: CALCIUM CARBONATE (OSCAL) 500 MG TABLET PO (10:01)
[2022-07-15] MEDS: BENZONATATE 100 MG CAPSULE 200 MG PO ×3 (11:10→16:11)
[2022-07-15] MEDS: ALBUMIN HUMAN 25% 12.5 GM/50ML 50 ML IVPB ×2 (11:10→16:11)
--- NOTE | 2022-07-15 11:44 | PM.PNNEP ---
Progress Note: A&P Assessment and Plan (1) ZORAN (acute kidney injury): Code(s): N17.9 - Acute kidney failure, unspecified Status: Acute Assessment and Plan: suffered ZORAN/ARF on last hospitalization due to sepsis creatinine seems to stabilized in the 2ish range by the time of discharge the hope was that his kidney function would continue to improve this appear to be occurring at this time previous evaluation noted: renal ultrasound normal urine electrolytes are pre-renal CPK normal still with significant swelling/edema and pleural effusions suspect still need may diuretic therapy IV albumin chased by IV bumex x 6 doses follow I/Os - was previous on bumex on last hospitalization (2) Sepsis: Qualifiers: Sepsis acute organ dysfunction status: with acute organ dysfunction Sepsis type: sepsis due to unspecified organism Severe sepsis acute organ dysfunction type: acute renal failure Severe sepsis shock status: without septic shock Code(s): A41.9 - Sepsis, unspecified organism Status: Acute Assessment and Plan: as evidence by lactic acidosis, fever, tachycardia, tachypnea, and confusion blood cultures with MRSA and urine culture with Pseudomonas on IV antibiotics follow repeat cultures history of C. diff colitis but no mention of this of CT imaging (3) Pleural effusion: Code(s): J90 - Pleural effusion, not elsewhere classified Status: Acute Assessment and Plan: likely to third spacing from hypoalbuminemia from recent acute illness/hospitalization plan IV albumin chased by IV bumex s/p thoracentesis (on 07/10/22) repeat CXR tomorrow (4) Hyponatremia: Code(s): E87.1 - Hypo-osmolality and hyponatremia Status: Chronic Assessment and Plan: chronic issue previous evaluation noted: cortisol level low - cosyntropin resulted in a cortisol level [address] of the head + chest x-ray are negative for masses/tumors no history of cancer off PPI likely due to the renal insufficiency and volume overload consider switching all IVPB meds to normal saline carrier fluid if sodium declines further hoping diuresis helps correct this issue follow trend of sodium (5) Anemia: Qualifiers: Anemia type: other cause Other causes of anemia: chronic disease, other Qualified Code(s): D63.8 - Anemia in other chronic diseases classified elsewhere Code(s): D64.9 - Anemia, unspecified Status: Acute Assessment and Plan: due to ZORAN, possible new CKD, and acute illness currently and from last hospitalization follow trend of H/H PRBC transfusion per protocol consider empiric Epogen therapy (6) C. difficile diarrhea: Code(s): A04.72 - Enterocolitis due to Clostridium difficile, not specified as recurrent Status: Acute Assessment and Plan: continue course or po vancomycin with addition of IV flagyl supportive therapy Will continue to follow Subjective Date/time seen: 07/15/22 11:44 No new issues or problems overnight or earlier this AM; breathing seems stable if not a tad better; lower extremity edema/swelling still present; major complaint is that of fatigue/tiredness; no other apparent distress noted. Exam Narrative: General: ill appearing male laying in bed in NAD Heart: normal S1 and S2; no rub Lungs: few crackles as the bases noted Abdomen: soft, nontender, nondistended, positive bowel sounds Extremities: no cyanosis or clubbing; 2+ edema Skin: no rash Objective Data Vital Signs Vital Signs: Vital Signs Temp Pulse Resp BP Pulse Ox O2 Del Method 07/15/22 08:00 100 07/15/22 09:20 Room Air 07/15/22 10:00 90 07/15/22 06:10 36.2 C L 109 H 17 131/86 97 07/15/22 05:18 107 H 07/15/22 04:00 103 H 07/15/22 02:34 95 20 07/15/22 02:34 95 07/15/22 02:25 99 20 1
--- NOTE | 2022-07-15 11:44 | P.PNNP_ITS ---
Progress Note: A&P Assessment and Plan (1) ZORAN (acute kidney injury): Code(s): N17.9 - Acute kidney failure, unspecified Status: Acute Assessment and Plan: * suffered ZORAN/ARF on last hospitalization due to sepsis * creatinine seems to stabilized in the 2ish range by the time of discharge * the hope was that his kidney function would continue to improve * this appear to be occurring at this time * previous evaluation noted: * renal ultrasound normal * urine electrolytes are pre-renal * CPK normal * still with significant swelling/edema and pleural effusions * suspect still need may diuretic therapy * IV albumin chased by IV bumex x 6 doses * follow I/Os - was previous on bumex on last hospitalization (2) Sepsis: Qualifiers: Sepsis acute organ dysfunction status: with acute organ dysfunction Sepsis type: sepsis due to unspecified organism Severe sepsis acute organ dysfunction type: acute renal failure Severe sepsis shock status: without septic shock Code(s): A41.9 - Sepsis, unspecified organism Status: Acute Assessment and Plan: * as evidence by lactic acidosis, fever, tachycardia, tachypnea, and confusion * blood cultures with MRSA and urine culture with Pseudomonas * on IV antibiotics * follow repeat cultures * history of C. diff colitis but no mention of this of CT imaging (3) Pleural effusion: Code(s): J90 - Pleural effusion, not elsewhere classified Status: Acute Assessment and Plan: * likely to third spacing from hypoalbuminemia from recent acute illness/hospitalization * plan IV albumin chased by IV bumex * s/p thoracentesis (on 07/10/22) * repeat CXR tomorrow (4) Hyponatremia: Code(s): E87.1 - Hypo-osmolality and hyponatremia Status: Chronic Assessment and Plan: * chronic issue * previous evaluation noted: * cortisol level low - cosyntropin resulted in a cortisol level 31 * TSH is normal * CT of the head + chest x-ray are negative for masses/tumors * no history of cancer * off PPI * likely due to the renal insufficiency and volume overload * consider switching all IVPB meds to normal saline carrier fluid if sodium declines further * hoping diuresis helps correct this issue * follow trend of sodium (5) Anemia: Qualifiers: Anemia type: other cause Other causes of anemia: chronic disease, other Qualified Code(s): D63.8 - Anemia in other chronic diseases classified elsewhere Code(s): D64.9 - Anemia, unspecified Status: Acute Assessment and Plan: * due to ZORAN, possible new CKD, and acute illness currently and from last hospitalization * follow trend of H/H * PRBC transfusion per protocol * consider empiric Epogen therapy (6) C. difficile diarrhea: Code(s): A04.72 - Enterocolitis due to Clostridium difficile, not specified as recurrent Status: Acute Assessment and Plan: * continue course or po vancomycin with addition of IV flagyl * supportive therapy Will continue to follow Subjective Date/time seen: 07/15/22 11:44 No new issues or problems overnight or earlier this AM; breathing seems stable if not a tad better; lower extremity edema/swelling still present; major complaint is that of fatigue/tiredness; no other apparent distress noted. Exam Narrative: General: ill appearing male laying in bed in NAD Heart: normal S1 and S2; no rub Lungs: few crackles as the bases noted Abdomen: soft, nonten
[2022-07-15] MEDS: BUMETANIDE INJ 1 MG/4 ML VIAL 2 MG IV PUSH ×2 (12:50→17:33)
[2022-07-15] MEDS: SALINE 0.65% NAS SOLN 44 ML BTL 1 SPRAY NASAL (12:54)
--- NOTE | 2022-07-15 13:08 | PM.IMPN ---
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, malnutrition, c dif colitis, chronic collagenous colitis, FOBT pending, previously positive at last admission Complicated by malnutrition, FOBT pending, GI consult pending FOBT was positive 06/25 when patient also required a transfusion, hgb stable after that until this morning 07/10: acute drop in hgb to 6.2 from 8.5 at admission, 7.1 yesterday, 2 units pRBC ordered and being given, this also happened during the last admission, GI was consulted, no workup deemed necessary, hgb stable after transfusion last time (06/25/22), blood loss was thought to be secondary to occult bleeding from chronic collagenous colitis complicated by C diff colitis with a fecal occult blood test positive on last admission, repeat fecal occult negative 07/11: Hemoglobin stable at 7.8, was 7.3 after transfusion yesterday, continue to monitor 07/12: Hemoglobin stable at 7.9 today. Eliquis on hold. GI following. Recent C diff colitis. Transfusion of 2 units of PRBC on 07/10/2022. History of chronic collagenous colitis. FOBT negative this admission. 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 Blood cultures positive for MRSA again here, source is most likely his central line catheter from the last admission, PERRY done at last admission was negative for vegetation, once blood cultures are negative, at that point would place PICC line and treat for 21 days from negative blood cultures with IV antibiotics due to recurrence and underlying immunocompromised state, would discuss with ID pharmacist best IV medication for this patient, will continue IV vancomycin for now Diarrhea appears to be at baseline, previously on immodium + budesonide for collagenous colitis, held for now due to C diff infection, repeat C diff test pending Thoracentesis performed 07/10: Cytology with mesothelial cells histiocytes and lymphocytes Urine culture came back positive for pseudomonas, cont cefepime, would complete a 7 day course vancomycin IV. MRSA bacteremia recurrent. Possibly incomplete treatment. Source most likely central line catheter from last admission. Perry last admission was negative. Blood culture from 07/11/2020 2s negative. Will need to plan for 4 weeks course of antibiotics starting from the negative blood culture which is on 07/11/2022. Due to vancomycin being every 8 in our option of changing it to daptomycin at discharge however will get culture sensitivity done if possible for daptomycin before that switch. This Has been ordered and discussed with the ID pharmacist. (3) Pyelonephritis: Code(s): N12 - Tubulo-interstitial nephritis, not specified as acute or chronic Status: Acute Assessment and Plan: Continue cefepime, appreciate Urology consultation, follow urine culture PVR 80 cc. Continue tamsulosin Nephrology following ZORAN continues to improve. Admission creatinine 2.1 (4) Renal failure: Code(s): N19 - Unspecified kidney failure Status:
[2022-07-15] MEDS: ATORVASTATIN 10 MG TABLET PO (20:48)
[2022-07-15] MEDS: CEFEPIME 0.5 GM in DEXTROSE 5% IN WATER 50 ML IVPB (20:48)
[2022-07-15] MEDS: TAMSULOSIN HCL 0.4 MG CAPSULE PO (20:50)
[2022-07-15] MEDS: ZOLPIDEM TARTRATE (*CRX) 5 MG TABLET 10 MG PO (23:02)
[2022-07-16] VITALS (28 sets, daily range): BP systolic 106–134; BP diastolic 66–81; PULSE 88–145; RESP 16–32; TEMP 36.3–37.3; O2SAT 92–99
[2022-07-16] MEDS: ALBUTEROL SULFATE NEB 2.5 MG/3 ML INH INHALATION ×4 (01:11→20:01)
[2022-07-16] MEDS: IPRATROPIUM BR 0.02% INH SOLN 0.5 MG/2.5 ML VIAL INHALATION ×4 (01:12→20:02)
[2022-07-16] MEDS: LEVOTHYROXINE SODIUM 50 MCG TABLET PO (05:25)
[2022-07-16] MEDS: ACETAMINOPHEN 500 MG TABLET 1000 MG PO (05:25)
[2022-07-16 05:47] LABS: Basophils Percent Auto 0.6 % (0.2-1.2); Eosinophils Absolute Auto 0.1 K/mm3 (0-0.3); Eosinophils Percent Auto 1.7 % (0-4.4); Immature Granulocyte Absolute 0.03 K/mm3 (0.00-0.031); Immature Granulocyte Percent A 0.9 % (0-0.5); Lymphocytes Absolute Auto 0.47 K/mm3 (0.9-3.2); Lymphocytes Percent Auto 13.7 % (18.3-44.2); Mean Corpuscular HGB Conc 32.9 g/dl (32-36); Mean Corpuscular Hemoglobin 33.2 pg (26-34); Mean Platelet Volume 10.5 fl (7.4-10.4); Monocytes Absolute Auto 0.3 K/mm3 (0.1-0.6); Monocytes Percent Auto 9.6 % (2.6-8.5); Neutrophils Absolute Auto 2.5 K/mm3 (1.3-6.7); Neutrophils Percent Auto 73.5 % (45.5-73.1); Platelet Count Result 105 k/mm3 (150-375); Red Blood Count 2.08 M/mm3 (4.6-6.20); Red Cell Distribution Width 17.7 % (11.5-14.5); White Blood Count 3.4 K/mm3 (4.5-10.0)
[2022-07-16 05:52] LABS: Hemoglobin 6.9 g/dL (14.0-18.0)
[2022-07-16 06:04] LABS: Alanine Aminotransferase 20 U/L (6-50); Albumin Level 2.6 g/dL (3.5-5.1); Alkaline Phosphatase 69 U/L (38-126); Anion Gap 6 mmol/L (8-16); Aspartate Amino Transferase 33 U/L (17-59); Bilirubin,Total 0.5 mg/dL (0.2-1.3); Blood Urea Nitrogen 10 mg/dL (9-20); Calcium 7.4 mg/dL (8.4-10.2); Carbon Dioxide 28 mmol/L (22-30); Chloride 96 mmol/L (98-107); Estimated CRCL calculation 40 ml/min; Estimated Glomerular Filt Rate 53; Glucose 100 mg/dL (65-110); Magnesium 1.2 mg/dL (1.6-2.3); Potassium 3.3 mmol/L (3.4-5.0); Sodium 130 mmol/L (137-145)
[2022-07-16] MEDS: POTASSIUM CHLORIDE 20 MEQ TABLET 40 MEQ PO ×2 (07:49→22:03)
[2022-07-16] MEDS: MAGNESIUM SULF 2 GM/WATER 50ML 2 GM/50 ML BAG IVPB (07:49)
[2022-07-16] MEDS: ALBUMIN HUMAN 25% 12.5 GM/50ML 50 ML IVPB ×2 (07:56→16:12)
[2022-07-16] MEDS: MAGNESIUM OXIDE 400 MG TABLET PO (08:01)
[2022-07-16] MEDS: FAMOTIDINE 20 MG TABLET PO ×2 (08:01→20:45)
[2022-07-16] MEDS: FLUTICASONE PROPIONATE 0.05% NA SPR 16 GM BTL (*BKC) 2 SPRAY NASAL (08:01)
[2022-07-16] MEDS: CALCIUM CARBONATE (OSCAL) 500 MG TABLET PO (08:01)
[2022-07-16] MEDS: BENZONATATE 100 MG CAPSULE 200 MG PO ×3 (08:01→16:12)
[2022-07-16] MEDS: HYDROCORTISONE/PRAMOXINE 2.5% 30 GM CREAM 1 APPLIC RECTAL (08:01)
[2022-07-16] MEDS: APIXABAN 2.5 MG TABLET PO ×2 (08:01→20:45)
[2022-07-16] MEDS: METOPROLOL TARTRATE 12.5 MG TABLET PO ×2 (08:01→20:48)
[2022-07-16] MEDS: SACCHAROMYCES BOULARDII 250 MG CAPSULE PO ×3 (08:02→16:13)
[2022-07-16] MEDS: PANTOPRAZOLE SOD SESQUIHYDRATE 20 MG TAB PO (08:02)
[2022-07-16] MEDS: SODIUM CHLORIDE 0.9% IV 250 ML 30 ML IV CONT (09:17)
[2022-07-16] MEDS: TUBING, BLOOD PLUM PUMP TUBING 1 EACH XX (09:17)
[2022-07-16] MEDS: BUMETANIDE INJ 1 MG/4 ML VIAL 2 MG IV PUSH ×2 (09:17→20:12)
--- NOTE | 2022-07-16 11:36 | P.PNNP_ITS ---
Progress Note: A&P Assessment and Plan (1) ZORAN (acute kidney injury): Code(s): N17.9 - Acute kidney failure, unspecified Status: Acute Assessment and Plan: * suffered ZORAN/ARF on last hospitalization due to sepsis * creatinine seems to stabilized in the 2ish range by the time of discharge * the hope was that his kidney function would continue to improve * this appear to be occurring at this time * previous evaluation noted: * renal ultrasound normal * urine electrolytes are pre-renal * CPK normal * still with significant swelling/edema and pleural effusions * suspect still may need chronic diuretic therapy * IV albumin chased by IV bumex x 6 doses (creatinine may rise a bit with this intervention) * follow I/Os - was previous on bumex on last hospitalization (2) Sepsis: Qualifiers: Sepsis acute organ dysfunction status: with acute organ dysfunction Sepsis type: sepsis due to unspecified organism Severe sepsis acute organ dysfunction type: acute renal failure Severe sepsis shock status: without septic shock Code(s): A41.9 - Sepsis, unspecified organism Status: Acute Assessment and Plan: * as evidence by lactic acidosis, fever, tachycardia, tachypnea, and confusion * blood cultures with MRSA and urine culture with Pseudomonas * on IV antibiotics * follow repeat cultures * history of C. diff colitis but no mention of this of CT imaging (3) Pleural effusion: Code(s): J90 - Pleural effusion, not elsewhere classified Status: Acute Assessment and Plan: * likely to third spacing from hypoalbuminemia from recent acute illness/hospit alization * getting IV albumin chased by IV bumex * s/p thoracentesis (on 07/10/22) * followup on CXR today (4) Hyponatremia: Code(s): E87.1 - Hypo-osmolality and hyponatremia Status: Chronic Assessment and Plan: * chronic issue * previous evaluation noted: * cortisol level low - cosyntropin resulted in a cortisol level 31 * TSH is normal * CT of the head + chest x-ray are negative for masses/tumors * no history of cancer * off PPI * likely due to the renal insufficiency and volume overload * consider switching all IVPB meds to normal saline carrier fluid if sodium declines further * seems diuresis is helping to correct this issue * follow trend of sodium (5) Anemia: Qualifiers: Anemia type: other cause Other causes of anemia: chronic disease, other Qualified Code(s): D63.8 - Anemia in other chronic diseases classified elsewhere Code(s): D64.9 - Anemia, unspecified Status: Acute Assessment and Plan: * due to ZORAN, possible new mild CKD, and acute illness currently and from last hospitalization * follow trend of H/H * PRBC transfusion per protocol * consider empiric Epogen therapy (6) C. difficile diarrhea: Code(s): A04.72 - Enterocolitis due to Clostridium difficile, not specified as recurrent Status: Acute Assessment and Plan: * continue course or po vancomycin with addition of IV flagyl * supportive therapy Will continue to follow Subjective Date/time seen: 07/16/22 11:36 LE edema/swelling seems a bit better; renal function tolerating IV albumin + IV bumex so far with reasonably diuresis at this time; low K+ and magnesium by AM labs and is s/p replacement; improvement in sodium noted as well; PRBC transfusi on due low H/H today. Exam Narrative: General: ill appearing male layin
--- NOTE | 2022-07-16 11:36 | PM.PNNEP ---
Progress Note: A&P Assessment and Plan (1) ZORAN (acute kidney injury): Code(s): N17.9 - Acute kidney failure, unspecified Status: Acute Assessment and Plan: suffered ZORAN/ARF on last hospitalization due to sepsis creatinine seems to stabilized in the 2ish range by the time of discharge the hope was that his kidney function would continue to improve this appear to be occurring at this time previous evaluation noted: renal ultrasound normal urine electrolytes are pre-renal CPK normal still with significant swelling/edema and pleural effusions suspect still may need chronic diuretic therapy IV albumin chased by IV bumex x 6 doses (creatinine may rise a bit with this intervention) follow I/Os - was previous on bumex on last hospitalization (2) Sepsis: Qualifiers: Sepsis acute organ dysfunction status: with acute organ dysfunction Sepsis type: sepsis due to unspecified organism Severe sepsis acute organ dysfunction type: acute renal failure Severe sepsis shock status: without septic shock Code(s): A41.9 - Sepsis, unspecified organism Status: Acute Assessment and Plan: as evidence by lactic acidosis, fever, tachycardia, tachypnea, and confusion blood cultures with MRSA and urine culture with Pseudomonas on IV antibiotics follow repeat cultures history of C. diff colitis but no mention of this of CT imaging (3) Pleural effusion: Code(s): J90 - Pleural effusion, not elsewhere classified Status: Acute Assessment and Plan: likely to third spacing from hypoalbuminemia from recent acute illness/hospitalization getting IV albumin chased by IV bumex s/p thoracentesis (on 07/10/22) followup on CXR today (4) Hyponatremia: Code(s): E87.1 - Hypo-osmolality and hyponatremia Status: Chronic Assessment and Plan: chronic issue previous evaluation noted: cortisol level low - cosyntropin resulted in a cortisol level [address] of the head + chest x-ray are negative for masses/tumors no history of cancer off PPI likely due to the renal insufficiency and volume overload consider switching all IVPB meds to normal saline carrier fluid if sodium declines further seems diuresis is helping to correct this issue follow trend of sodium (5) Anemia: Qualifiers: Anemia type: other cause Other causes of anemia: chronic disease, other Qualified Code(s): D63.8 - Anemia in other chronic diseases classified elsewhere Code(s): D64.9 - Anemia, unspecified Status: Acute Assessment and Plan: due to ZORAN, possible new mild CKD, and acute illness currently and from last hospitalization follow trend of H/H PRBC transfusion per protocol consider empiric Epogen therapy (6) C. difficile diarrhea: Code(s): A04.72 - Enterocolitis due to Clostridium difficile, not specified as recurrent Status: Acute Assessment and Plan: continue course or po vancomycin with addition of IV flagyl supportive therapy Will continue to follow Subjective Date/time seen: 07/16/22 11:36 LE edema/swelling seems a bit better; renal function tolerating IV albumin + IV bumex so far with reasonably diuresis at this time; low K+ and magnesium by AM labs and is s/p replacement; improvement in sodium noted as well; PRBC transfusion due low H/H today. Exam Narrative: General: ill appearing male laying in bed in NAD Heart: normal S1 and S2; no rub Lungs: few crackles as the bases noted Abdomen: soft, nontender, nondistended, positive bowel sounds Extremities: no cyanosis or clubbing; 2+ edema Skin: warm and dry Objective Data Vital Signs Vital Signs: Vital Signs Temp Pulse Resp BP Pulse Ox O2 Del Method 07/16/22 10:27 36.8 C 101 H 16 110/66 95 07/16/22 08:00 112 H 07/16/22 08:10 Room Air 07/16/22 09:11 36.4 C 96 18 106/70 92 07/16
--- NOTE | 2022-07-16 14:20 | PC.NURSE ---
pt had c/o sob at rest. when entering room pt did not appear to be in distress but had shallow increased breathing. resp. call for breathing treatment. provider made aware. pt placed on 2l nc vitals within normal limits. pt up in chair at this time with family at bedside and call light in reach.
--- NOTE | 2022-07-16 14:21 | PM.IMPN ---
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, malnutrition, c dif colitis, chronic collagenous colitis, FOBT pending, previously positive at last admission Complicated by malnutrition, FOBT pending, GI consult pending FOBT was positive 06/25 when patient also required a transfusion, hgb stable after that until this morning 07/10: acute drop in hgb to 6.2 from 8.5 at admission, 7.1 yesterday, 2 units pRBC ordered and being given, this also happened during the last admission, GI was consulted, no workup deemed necessary, hgb stable after transfusion last time (06/25/22), blood loss was thought to be secondary to occult bleeding from chronic collagenous colitis complicated by C diff colitis with a fecal occult blood test positive on last admission, repeat fecal occult negative 07/11: Hemoglobin stable at 7.8, was 7.3 after transfusion yesterday, continue to monitor 07/12: Hemoglobin stable at 7.9 today. Eliquis on hold. GI following. Recent C diff colitis. Transfusion of 2 units of PRBC on 07/10/2022. History of chronic collagenous colitis. FOBT negative this admission. Will resume Eliquis 07/16: Open down to 6.9. Will transfuse 1 unit of PRBC no signs of bleeding present currently will continue to monitor (2) Sepsis: Qualifiers: Sepsis acute organ dysfunction status: with acute organ dysfunction Sepsis type: sepsis due to unspecified organism Severe sepsis acute organ dysfunction type: acute renal failure Severe sepsis shock status: without septic shock Code(s): A41.9 - Sepsis, unspecified organism Status: Acute Assessment and Plan: Continue IV Flagyl and oral vancomycin for C diff colitis, cefepime for Pseudomonas UTI, IV vancomycin for MRSA bacteremia, replete blood cultures from 07/11 no growth to date IV vanc, h/o MRSA bacteremia from last admission that was treated with daptomycin for approximately 14 days, possibly incompletely treated? Blood cultures positive for MRSA again here, source is most likely his central line catheter from the last admission, PERRY done at last admission was negative for vegetation, once blood cultures are negative, at that point would place PICC line and treat for 21 days from negative blood cultures with IV antibiotics due to recurrence and underlying immunocompromised state, would discuss with ID pharmacist best IV medication for this patient, will continue IV vancomycin for now Diarrhea appears to be at baseline, previously on immodium + budesonide for collagenous colitis, held for now due to C diff infection, repeat C diff test pending Thoracentesis performed 07/10: Cytology with mesothelial cells histiocytes and lymphocytes Urine culture came back positive for pseudomonas, cont cefepime, would complete a 7 day course vancomycin IV. MRSA bacteremia recurrent. Possibly incomplete treatment. Source most likely central line catheter from last admission. Perry last admission was negative. Blood culture from 07/11/2020 2s negative. Will need to plan for 4 weeks course of antibiotics starting from the negative blood culture which is on 07/11/2022. Due to vancomycin being every 8 in our option of changing it to daptomycin at discharge however will get culture sensitivity done if possible for daptomycin before that switch. This Has been ordered and discussed with the ID pharmacist. (3) Pyelonephritis: Code(s): N12 - Tubulo-interstitial nephritis, not specified as acute or chronic Status: Acute Assessment and Plan: Continue cefepime, appreciate Urology consultation, follow urine culture PVR 80 cc. Continue tamsulosin Nephrology following ZORAN continues t
[2022-07-16] MEDS: guaiFENesin 200 MG/10 ML UDC PO (16:12)
[2022-07-16 16:24] LABS: Vancomycin Trough 23.1 ug/mL (10.0-20.0)
[2022-07-16] MEDS: BUDESONIDE RESPULE NEB 0.5 MG/2 ML AMP INHALATION (16:51)
[2022-07-16] MEDS: BUMETANIDE INJ 2.5 MG/10 ML VIAL 2 MG IV PUSH (17:42)
[2022-07-16 18:05] LABS: Hematocrit 27.3 % (42.0-52.0)
--- NOTE | 2022-07-16 20:10 | ECG_ITS ---
Measurements Intervals [place] Rate: 139 P: MA: 0 QRS: -4 QRSD: 90 T: 36 QT: 272 QTc: 415 Interpretive Statements ATRIAL FLUTTER/TACHYCARDIA WITH RAPID VENTRICULAR RESPONSE LOW QRS VOLTAGE IN LIMB LEADS POOR R WAVE PROGRESSION, ANTERIOR LEADS ABNORMAL ECG COMPARED TO ECG 07/08/2022 20:17:48 NO SIGNIFICANT CHANGES Electronically Signed On 07-17-2022 11:36:08 AMUSEMENT CENTRE MANAGER by El Toth D.O.
[2022-07-16] MEDS: ATORVASTATIN 10 MG TABLET PO (20:45)
[2022-07-16] MEDS: TAMSULOSIN HCL 0.4 MG CAPSULE PO (20:49)
[2022-07-16] MEDS: MAGNESIUM SULF 4 GM/WATER100ML 4 GM/100 ML BAG IVPB (21:48)
[2022-07-16] MEDS: METOPROLOL TARTRATE INJ 5 MG/5 ML VIAL IV PUSH (21:51)
[2022-07-16] MEDS: ZOLPIDEM TARTRATE (*CRX) 5 MG TABLET 10 MG PO (22:03)
[2022-07-16] MEDS: METOPROLOL SUCCINATE EXT REL 50 MG TABCR PO (22:12)
[2022-07-17] VITALS (30 sets, daily range): BP systolic 108–141; BP diastolic 62–96; PULSE 79–120; RESP 17–35; TEMP 36.2–37.3; O2SAT 92–100
[2022-07-17] MEDS: ALBUTEROL SULFATE NEB 2.5 MG/3 ML INH INHALATION ×4 (01:10→20:13)
[2022-07-17] MEDS: IPRATROPIUM BR 0.02% INH SOLN 0.5 MG/2.5 ML VIAL INHALATION ×4 (01:10→20:13)
[2022-07-17] MEDS: LORazepam INJ (*CRX) 2 MG/ML VIAL 1 MG IV PUSH (01:12)
[2022-07-17] MEDS: BUMETANIDE INJ 1 MG/4 ML VIAL 2 MG IV PUSH (01:19)
--- NOTE | 2022-07-17 02:20 | PC.NURSE ---
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 Pt has increasing nonproductive coughing episodes. Pt states he is hot. Pt states he can't catch his breath and labored breathing started to increase while tech was obtaining vital signs. @2007 pt vitals: BP 151/100, O2 100%, Temp 98.5, HR 137. Pt was given 2mg of Bumex IVP, Magnesium IV, metoprolol 50mg PO, and 2100 meds. At 0100 pt started to display same symptoms as before. Ativan IVP administered, Bumex 8mL IVP administered and Bipap applied by respiratory. [place] ordered and placed with 400ml post void. At 0245 pt laying in bed in high fowlers position comfortable with Bipap. Pt sleeping with intermittent coughing. RN outside of pt room for precaution.
[2022-07-17] MEDS: guaiFENesin 200 MG/10 ML UDC PO ×2 (05:30→09:09)
--- NOTE | 2022-07-17 06:14 | WPDUROPN2 ---
Progress Note: A&P Assessment and Plan (1) Renal failure: Code(s): N19 - Unspecified kidney failure Status: Acute (2) Acute UTI: Code(s): N39.0 - Urinary tract infection, site not specified Status: Acute Assessment and Plan: Catheter placed in light of ongoing diuresis last night Random volume 400 cc (asymptomatic ) is not too bad Will re-culture urine Plan voiding trial when he is more ambulatory. In the meantime will continue tamsulosin but hold Vesicare Plan Subjective Subjective Date/Time Seen: 07/17/22 06:14 Catheter placed overnight due to ongoing diuresis. Minimal catheter irritation. Review of Systems Cardiovascular: Cardiovascular: Denies chest pain, Denies lightheadedness, Denies palpitations and Denies dyspnea Respiratory: Respiratory: Reports dyspnea Gastrointestinal: Gastrointestinal: Denies diarrhea, Denies nausea and Denies vomiting Genitourinary: Genitourinary: Denies hematuria and Denies dysuria Endocrine: Endocrine: Denies palpitations Exam Const: General: no acute distress Resp: Effort & Inspection: normal respiratory effort GI: Inspection: non-distended GI Palp: No abdominal tenderness and No Guarding due to palpation present (GI) Auscultation: normal bowel sounds Urinary Catheter: Urinary Catheter: patent and draining and urine clear Objective Data Vital Signs Vital Signs: Vital Signs - 24 hr 07/16/22 08:01 07/16/22 08:00 07/16/22 08:05 Temperature Pulse Rate 88 100 100 Respiratory Rate 18 Blood Pressure Pulse Oximetry 97 Oxygen Delivery Room Air Oxygen Flow Rate 07/16/22 08:12 07/16/22 09:11 07/16/22 08:10 Temperature 97.6 F Pulse Rate 103 H 96 Respiratory Rate 16 18 Blood Pressure 106/70 Pulse Oximetry 92 Oxygen Delivery Room Air Oxygen Flow Rate 07/16/22 08:00 07/16/22 10:27 07/16/22 11:35 Temperature 98.2 F 98.4 F Pulse Rate 112 H 101 H 100 Respiratory Rate 16 24 H Blood Pressure 110/66 118/76 Pulse Oximetry 95 98 Oxygen Delivery Oxygen Flow Rate 07/16/22 12:00 07/16/22 13:31 07/16/22 13:31 Temperature Pulse Rate 96 101 H Respiratory Rate 20 Blood Pressure Pulse Oximetry 95 Oxygen Delivery Room Air Oxygen Flow Rate 07/16/22 13:51 07/16/22 14:18 07/16/22 14:50 Temperature 99.2 F Pulse Rate 107 H 114 H Respiratory Rate 32 H 24 H Blood Pressure 134/80 Pulse Oximetry 96 99 Oxygen Delivery Nasal Cannula Oxygen Flow Rate 2 07/16/22 16:51 07/16/22 16:58 07/16/22 16:00 Temperature Pulse Rate 120 H 110 H 121 H Respiratory Rate 20 32 H Blood Pressure Pulse Oximetry Oxygen Delivery Oxygen Flow Rate 07/16/22 20:04 07/16/22 20:04 07/16/22 20:48 Temperature Pulse Rate 130 H 130 H 142 H Respiratory Rate 28 H 28 H Blood Pressure Pulse Oximetry 97 Oxygen Delivery Nasal Cannula Oxygen Flow Rate 2 07/16/22 21:51 07/16/22 22:12 07/16/22 21:58 Temperature Pulse Rate 134 H 110 H 145 H Respiratory Rate 26 H Blood Pressure Pulse Oximetry Oxygen Delivery Oxygen Flow Rate 07/16/22 22:00 07/16/22 21:26 07/16/22 20:00 Temperature 98.7 F 97.4 F L Pulse Rate 109 H 135 H 141 H Respiratory Rate 24 H 32 H Blood Pressure 116/81 110/75 Pulse Oximetry 98 93 Oxygen Delivery Oxygen Flow Rate 07/16/22 20:00 07/17/22 00:00 07/17/22 01:11 Temperature Pulse Rate 108 H 114 H Respiratory Rate 32 H Blood Pressure Pulse Oximetry 93 Oxygen Delivery Nasal Cannula Oxygen Flow Rate 2 07/17/22 01:15 07/17/22 01:49 07/17/22 01:30 Temperature Pulse Rate 114 H 120 H 114 H Respiratory Rate 32 H 28 H 24 H Blood Pressure Pulse Oximetry 94 95 Oxygen Delivery Nasal Cannula BiPAP Oxygen Flow Rate 2 07/17/22 03:14 07/17/22 04:00 Temperature Pulse Rate 110 H 96 Respiratory Rate 19 Blood Pressure Pulse Oximetry 98 Oxygen Delivery BiPAP
[2022-07-17 06:16] LABS: Alanine Aminotransferase 25 U/L (6-50); Albumin Level 3.5 g/dL (3.5-5.1); Alkaline Phosphatase 89 U/L (38-126); Anion Gap 6 mmol/L (8-16); Aspartate Amino Transferase 40 U/L (17-59); Bilirubin,Total 0.9 mg/dL (0.2-1.3); Blood Urea Nitrogen 13 mg/dL (9-20); Carbon Dioxide 28 mmol/L (22-30); Chloride 94 mmol/L (98-107); Estimated CRCL calculation 35 ml/min; Estimated Glomerular Filt Rate 45; Glucose 108 mg/dL (65-110); Potassium 4.7 mmol/L (3.4-5.0); Sodium 128 mmol/L (137-145)
[2022-07-17 06:19] LABS: Basophils Percent Auto 1.1 % (0.2-1.2); Eosinophils Percent Auto 0.3 % (0-4.4); Hematocrit 27.6 % (42.0-52.0); Immature Granulocyte Absolute 0.03 K/mm3 (0.00-0.031); Immature Granulocyte Percent A 0.9 % (0-0.5); Lymphocytes Absolute Auto 0.54 K/mm3 (0.9-3.2); Lymphocytes Percent Auto 15.5 % (18.3-44.2); Mean Corpuscular HGB Conc 32.6 g/dl (32-36); Mean Corpuscular Hemoglobin 32.7 pg (26-34); Mean Corpuscular Volume 100.4 fl (80-100); Monocytes Absolute Auto 0.5 K/mm3 (0.1-0.6); Monocytes Percent Auto 13.5 % (2.6-8.5); Neutrophils Absolute Auto 2.4 K/mm3 (1.3-6.7); Neutrophils Percent Auto 68.7 % (45.5-73.1); Platelet Count Result 111 k/mm3 (150-375); Red Blood Count 2.75 M/mm3 (4.6-6.20); Red Cell Distribution Width 17.9 % (11.5-14.5); White Blood Count 3.5 K/mm3 (4.5-10.0)
[2022-07-17] MEDS: BUDESONIDE RESPULE NEB 0.5 MG/2 ML AMP INHALATION ×2 (06:27→20:13)
[2022-07-17] MEDS: LEVOTHYROXINE SODIUM 50 MCG TABLET PO (06:40)
[2022-07-17] MEDS: ALBUMIN HUMAN 25% 12.5 GM/50ML 50 ML IVPB ×2 (08:52→17:12)
[2022-07-17] MEDS: FLUTICASONE PROPIONATE 0.05% NA SPR 16 GM BTL (*BKC) 2 SPRAY NASAL (09:08)
[2022-07-17] MEDS: CLOBETASOL PROPIONATE 0.05% CREAM 15 GM 1 APPLIC TOPICAL (09:09)
[2022-07-17] MEDS: APIXABAN 2.5 MG TABLET PO ×2 (09:10→21:03)
[2022-07-17] MEDS: SACCHAROMYCES BOULARDII 250 MG CAPSULE PO ×3 (09:10→17:12)
[2022-07-17] MEDS: CALCIUM CARBONATE (OSCAL) 500 MG TABLET PO (09:10)
[2022-07-17] MEDS: BENZONATATE 100 MG CAPSULE 200 MG PO ×3 (09:10→17:12)
[2022-07-17] MEDS: LIDOCAINE 5% PATCH 1 PATCH TRANSDERM (09:11)
[2022-07-17] MEDS: HYDROCORTISONE/PRAMOXINE 2.5% 30 GM CREAM 1 APPLIC RECTAL (09:11)
[2022-07-17] MEDS: PANTOPRAZOLE SOD SESQUIHYDRATE 20 MG TAB PO (09:11)
[2022-07-17] MEDS: FAMOTIDINE 20 MG TABLET PO ×2 (09:11→21:04)
[2022-07-17] MEDS: MAGNESIUM OXIDE 400 MG TABLET PO (09:12)
[2022-07-17] MEDS: METOPROLOL SUCCINATE EXT REL 50 MG TABCR PO ×2 (09:38→21:03)
[2022-07-17] MEDS: ALBUTEROL SULFATE (*SP) AEROSOL 1 PUFF INHALATION (10:56)
--- NOTE | 2022-07-17 11:01 | PCNFU ---
Nutrition Follow-Up Complete: Unintentional weight loss related to reduced appetite and intake prior to admission as evidenced by family report Goal:PO intake to continue 75% or greater for meals and supplements. pt is slowly progressing towards goal. Continue with same goal. Pt current nutrition is heart healthy. Nutrition recommendation: Continue with current plan of care Last recorded weight is 86.2 kg - up from 82kg on admission. Bowel Motility: +BM 07/16 Labs Reviewed: Hgb:9, HCT:27.6, Na:128, GFR:45, Cr:1.5 Meds Noted:eliquis, bumex Skin: WNL Additional Notes: Pt continues on a heart healthy diet, intake 25-50%. Ensure compact BID in place per previous rec. Continue to encourage intake of meals and supplements. Agree with diet order. Monitor intake, wt, labs. Follow up in 7 days.
[2022-07-17] MEDS: BUMETANIDE INJ 2.5 MG/10 ML VIAL 2 MG IV PUSH ×2 (11:42→17:12)
[2022-07-17] MEDS: methylPREDNISolone SOD SUCC 125 MG VIAL IV PUSH (11:44)
--- NOTE | 2022-07-17 11:52 | PM.IMPN ---
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, malnutrition, c dif colitis, chronic collagenous colitis, FOBT pending, previously positive at last admission Complicated by malnutrition, FOBT pending, GI consult pending FOBT was positive 06/25 when patient also required a transfusion, hgb stable after that until this morning 07/10: acute drop in hgb to 6.2 from 8.5 at admission, 7.1 yesterday, 2 units pRBC ordered and being given, this also happened during the last admission, GI was consulted, no workup deemed necessary, hgb stable after transfusion last time (06/25/22), blood loss was thought to be secondary to occult bleeding from chronic collagenous colitis complicated by C diff colitis with a fecal occult blood test positive on last admission, repeat fecal occult negative 07/11: Hemoglobin stable at 7.8, was 7.3 after transfusion yesterday, continue to monitor 07/12: Hemoglobin stable at 7.9 today. Eliquis on hold. GI following. Recent C diff colitis. Transfusion of 2 units of PRBC on 07/10/2022. History of chronic collagenous colitis. FOBT negative this admission. Will resume Eliquis 07/16: hemoglobin down to 6.9. Will transfuse 1 unit of PRBC no signs of bleeding present currently will continue to monitor 07/17: H&H is stable. Status post transfusion of 1 unit of PRBC on 07/16/2022. No active signs of bleeding (2) Sepsis: Qualifiers: Sepsis acute organ dysfunction status: with acute organ dysfunction Sepsis type: sepsis due to unspecified organism Severe sepsis acute organ dysfunction type: acute renal failure Severe sepsis shock status: without septic shock Code(s): A41.9 - Sepsis, unspecified organism Status: Acute Assessment and Plan: Continue IV Flagyl and oral vancomycin for C diff colitis, cefepime for Pseudomonas UTI, IV vancomycin for MRSA bacteremia, replete blood cultures from 07/11 no growth to date IV vanc, h/o MRSA bacteremia from last admission that was treated with daptomycin for approximately 14 days, possibly incompletely treated? Blood cultures positive for MRSA again here, source is most likely his central line catheter from the last admission, PERRY done at last admission was negative for vegetation, once blood cultures are negative, at that point would place PICC line and treat for 21 days from negative blood cultures with IV antibiotics due to recurrence and underlying immunocompromised state, would discuss with ID pharmacist best IV medication for this patient, will continue IV vancomycin for now Diarrhea appears to be at baseline, previously on immodium + budesonide for collagenous colitis, held for now due to C diff infection, repeat C diff test pending Thoracentesis performed 07/10: Cytology with mesothelial cells histiocytes and lymphocytes Urine culture came back positive for pseudomonas, cont cefepime, would complete a 7 day course vancomycin IV. MRSA bacteremia recurrent. Possibly incomplete treatment. Source most likely central line catheter from last admission. Perry last admission was negative. Blood culture from 07/11/2020 2s negative. Will need to plan for 4 weeks course of antibiotics starting from the negative blood culture which is on 07/11/2022. Due to vancomycin being every 8 in our option of changing it to daptomycin at discharge however will get culture sensitivity done if possible for daptomycin before that switch. This Has been ordered and discussed with the ID pharmacist. Reinitiate cefepime as patient continues to worsen since stopping and has bilateral atelectasis versus consolidation with cough and wheezing. (3) Pyelonephritis: Code(s): N12 -
--- NOTE | 2022-07-17 12:22 | P.PNNP_ITS ---
Progress Note: A&P Assessment and Plan (1) ZORAN (acute kidney injury): Code(s): N17.9 - Acute kidney failure, unspecified Status: Acute Assessment and Plan: * suffered ZORAN/ARF on last hospitalization due to sepsis * creatinine seems to stabilized in the 2ish range by the time of discharge * the hope was that his kidney function would continue to improve * this appear to be occurring at this time * previous evaluation noted: * renal ultrasound normal * urine electrolytes are pre-renal * CPK normal * still with significant swelling/edema and pleural effusions * suspect still may need chronic diuretic therapy * IV albumin chased by IV bumex x 6 doses (last dose today) * follow I/Os - was previous on bumex on last hospitalization (2) Sepsis: Qualifiers: Sepsis acute organ dysfunction status: with acute organ dysfunction Sepsis type: sepsis due to unspecified organism Severe sepsis acute organ dysfunction type: acute renal failure Severe sepsis shock status: without septic shock Code(s): A41.9 - Sepsis, unspecified organism Status: Acute Assessment and Plan: * as evidence by lactic acidosis, fever, tachycardia, tachypnea, and confusion * blood cultures with MRSA and urine culture with Pseudomonas * on IV antibiotics * follow repeat cultures * history of C. 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: Chronic Assessment and Plan: * chronic issue * previous evaluation noted: * cortisol level low - cosyntropin resulted in a cortisol level 31 * TSH is normal * CT of the head + chest x-ray are negative for masses/tumors * no history of cancer * off PPI * likely due to the renal insufficiency and volume overload * consider switching all IVPB meds to normal saline carrier fluid if sodium declines further * seems diuresis is helping to correct this issue * follow trend of sodium (5) Anemia: Qualifiers: Anemia type: other cause Other causes of anemia: chronic disease, other Qualified Code(s): D63.8 - Anemia in other chronic diseases classified elsewhere Code(s): D64.9 - Anemia, unspecified Status: Acute Assessment and Plan: * due to ZORAN, possible new mild CKD, and acute illness currently and from last hospitalization * follow trend of H/H * PRBC transfusion per protocol * consider empiric Epogen therapy (6) C. difficile diarrhea: Code(s): A04.72 - Enterocolitis due to Clostridium difficile, not specified as recurrent Status: Acute Assessment and Plan: * continue course or po vancomycin with addition of IV flagyl * supportive therapy Will continue to follow Subjective Date/time seen: 07/17/22 12:22 Tolerating IV albumin + IV bumex with reasonably diuresis although creatinine up a bit by AM labs; H/H stable s/p PRBC transfusion yesterday; lower extremity swelling/edema continues to improve; no apparent distress noted at the time of my visit. Exam Narrative: General: ill appearing male laying in bed in NAD Heart: normal S1
--- NOTE | 2022-07-17 12:22 | PM.PNNEP ---
Progress Note: A&P Assessment and Plan (1) ZORAN (acute kidney injury): Code(s): N17.9 - Acute kidney failure, unspecified Status: Acute Assessment and Plan: suffered ZORAN/ARF on last hospitalization due to sepsis creatinine seems to stabilized in the 2ish range by the time of discharge the hope was that his kidney function would continue to improve this appear to be occurring at this time previous evaluation noted: renal ultrasound normal urine electrolytes are pre-renal CPK normal still with significant swelling/edema and pleural effusions suspect still may need chronic diuretic therapy IV albumin chased by IV bumex x 6 doses (last dose today) follow I/Os - was previous on bumex on last hospitalization (2) Sepsis: Qualifiers: Sepsis acute organ dysfunction status: with acute organ dysfunction Sepsis type: sepsis due to unspecified organism Severe sepsis acute organ dysfunction type: acute renal failure Severe sepsis shock status: without septic shock Code(s): A41.9 - Sepsis, unspecified organism Status: Acute Assessment and Plan: as evidence by lactic acidosis, fever, tachycardia, tachypnea, and confusion blood cultures with MRSA and urine culture with Pseudomonas on IV antibiotics follow repeat cultures history of C. diff colitis but no mention of this of CT imaging (3) Pleural effusion: Code(s): J90 - Pleural effusion, not elsewhere classified Status: Acute Assessment and Plan: likely to third spacing from hypoalbuminemia from recent acute illness/hospitalization getting IV albumin chased by IV bumex (last dose today) s/p thoracentesis (on 07/10/22) follow repeat CXR (4) Hyponatremia: Code(s): E87.1 - Hypo-osmolality and hyponatremia Status: Chronic Assessment and Plan: chronic issue previous evaluation noted: cortisol level low - cosyntropin resulted in a cortisol level [address] of the head + chest x-ray are negative for masses/tumors no history of cancer off PPI likely due to the renal insufficiency and volume overload consider switching all IVPB meds to normal saline carrier fluid if sodium declines further seems diuresis is helping to correct this issue follow trend of sodium (5) Anemia: Qualifiers: Anemia type: other cause Other causes of anemia: chronic disease, other Qualified Code(s): D63.8 - Anemia in other chronic diseases classified elsewhere Code(s): D64.9 - Anemia, unspecified Status: Acute Assessment and Plan: due to ZORAN, possible new mild CKD, and acute illness currently and from last hospitalization follow trend of H/H PRBC transfusion per protocol consider empiric Epogen therapy (6) C. difficile diarrhea: Code(s): A04.72 - Enterocolitis due to Clostridium difficile, not specified as recurrent Status: Acute Assessment and Plan: continue course or po vancomycin with addition of IV flagyl supportive therapy Will continue to follow Subjective Date/time seen: 07/17/22 12:22 Tolerating IV albumin + IV bumex with reasonably diuresis although creatinine up a bit by AM labs; H/H stable s/p PRBC transfusion yesterday; lower extremity swelling/edema continues to improve; no apparent distress noted at the time of my visit. Exam Narrative: General: ill appearing male laying in bed in NAD Heart: normal S1 and S2; no rub Lungs: coarse and decreased at bases Abdomen: soft, nontender, nondistended, positive bowel sounds Extremities: no cyanosis or clubbing; 1+ edema Skin: warm and dry Objective Data Vital Signs Vital Signs: Vital Signs 07/17/22 12:00 106 H 27 H 96 BiPAP 07/17/22 08:00 101 H 07/17/22 11:08 106 H 27 H 96 BiPAP 07/17/22 10:58 96 Nasal Cannula 5 07/17/22 08:00 95 Nasal Cannula 5 07/17/22 09:38 110 H
--- NOTE | 2022-07-17 12:59 | PC.NURSE ---
This patient, Naga De Leon, was received from [[id number] ] on 07/17/22 at 1200 Patient/family oriented to unit policies and routines
--- NOTE | 2022-07-17 13:42 | PCPTNOTE ---
The patient treatment was not able to be completed today due to patient being transferred to IMU from medical floor. Will plan to await further orders to resume PT.
[2022-07-17] MEDS: methylPREDNISolone SOD SUCC 40 MG VIAL IV PUSH ×2 (13:54→21:02)
[2022-07-17] MEDS: ATORVASTATIN 10 MG TABLET PO (21:04)
[2022-07-17] MEDS: TAMSULOSIN HCL 0.4 MG CAPSULE PO (21:04)
[2022-07-17] MEDS: ZOLPIDEM TARTRATE (*CRX) 5 MG TABLET 10 MG PO (23:52)
[2022-07-18] VITALS (30 sets, daily range): BP systolic 108–139; BP diastolic 54–81; PULSE 76–98; RESP 12–29; TEMP 36.4–37; O2SAT 92–100
[2022-07-18] MEDS: ALBUTEROL SULFATE NEB 2.5 MG/3 ML INH INHALATION ×4 (01:47→20:07)
[2022-07-18] MEDS: IPRATROPIUM BR 0.02% INH SOLN 0.5 MG/2.5 ML VIAL INHALATION ×4 (01:47→20:07)
[2022-07-18 04:22] LABS: Hematocrit 21.3 % (42.0-52.0); Immature Granulocyte Absolute 0.01 K/mm3 (0.00-0.031); Immature Granulocyte Percent A 0.7 % (0-0.5); Immature Platelet Fraction Pct 5.2 % (0.9-11.2); Lymphocytes Percent Auto 14.8 % (18.3-44.2); Mean Corpuscular HGB Conc 33.3 g/dl (32-36); Mean Corpuscular Hemoglobin 33.3 pg (26-34); Mean Platelet Volume 10.3 fl (7.4-10.4); Monocytes Absolute Auto 0.1 K/mm3 (0.1-0.6); Monocytes Percent Auto 8.1 % (2.6-8.5); Neutrophils Percent Auto 76.4 % (45.5-73.1); Platelet Count Result 107 k/mm3 (150-375); Red Blood Count 2.13 M/mm3 (4.6-6.20); Red Cell Distribution Width 17.7 % (11.5-14.5)
[2022-07-18 04:37] LABS: Hemoglobin 7.1 g/dL (14.0-18.0); White Blood Count 1.4 K/mm3 (4.5-10.0)
[2022-07-18 04:38] LABS: Alanine Aminotransferase 20 U/L (6-50); Alkaline Phosphatase 69 U/L (38-126); Anion Gap 6 mmol/L (8-16); Aspartate Amino Transferase 29 U/L (17-59); Bilirubin,Total 0.6 mg/dL (0.2-1.3); Blood Urea Nitrogen 22 mg/dL (9-20); Calcium 7.9 mg/dL (8.4-10.2); Carbon Dioxide 30 mmol/L (22-30); Chloride 93 mmol/L (98-107); Estimated CRCL calculation 33 ml/min; Estimated Glomerular Filt Rate 41; Glucose 121 mg/dL (65-110); Potassium 3.9 mmol/L (3.4-5.0); Sodium 129 mmol/L (137-145)
[2022-07-18] MEDS: LEVOTHYROXINE SODIUM 50 MCG TABLET PO (05:44)
[2022-07-18] MEDS: methylPREDNISolone SOD SUCC 40 MG VIAL IV PUSH ×3 (05:47→21:13)
[2022-07-18] MEDS: BUDESONIDE RESPULE NEB 0.5 MG/2 ML AMP INHALATION ×2 (08:09→20:07)
[2022-07-18] MEDS: APIXABAN 2.5 MG TABLET PO ×2 (08:09→21:14)
[2022-07-18] MEDS: PANTOPRAZOLE SOD SESQUIHYDRATE 20 MG TAB PO (08:10)
[2022-07-18] MEDS: CALCIUM CARBONATE (OSCAL) 500 MG TABLET PO (08:10)
[2022-07-18] MEDS: MAGNESIUM OXIDE 400 MG TABLET PO (08:10)
[2022-07-18] MEDS: FLUTICASONE PROPIONATE 0.05% NA SPR 16 GM BTL (*BKC) 2 SPRAY NASAL (08:10)
[2022-07-18] MEDS: SACCHAROMYCES BOULARDII 250 MG CAPSULE PO ×3 (08:10→16:42)
[2022-07-18] MEDS: METOPROLOL SUCCINATE EXT REL 50 MG TABCR PO ×2 (08:10→21:13)
[2022-07-18] MEDS: FAMOTIDINE 20 MG TABLET PO ×2 (08:10→21:14)
[2022-07-18] MEDS: BENZONATATE 100 MG CAPSULE 200 MG PO ×3 (08:14→16:42)
[2022-07-18] MEDS: HYDROCORTISONE/PRAMOXINE 2.5% 30 GM CREAM 1 APPLIC RECTAL (08:20)
[2022-07-18] MEDS: LIDOCAINE 5% PATCH 1 PATCH TRANSDERM (08:21)
--- NOTE | 2022-07-18 10:57 | P.PNNP_ITS ---
Progress Note: A&P Assessment and Plan (1) ZORAN (acute kidney injury): Code(s): N17.9 - Acute kidney failure, unspecified Status: Acute Assessment and Plan: * suffered ZORAN/ARF on last hospitalization due to sepsis * creatinine seems to stabilized in the 2ish range by the time of discharge * the hope was that his kidney function would continue to improve * his creatinine improved to 1.2mg/dl * up a bit in response to diuresis * previous evaluation noted: * renal ultrasound normal * urine electrolytes are pre-renal * CPK normal * suspect still may need chronic diuretic therapy * IV albumin chased by IV bumex x 6 doses (completed 07/17/22) * holding further diuresis given bump in creatinine * this may be a situation where except a higher creatinine to achieve relative euvolemia.... * follow I/Os (2) Sepsis: Qualifiers: Sepsis acute organ dysfunction status: with acute organ dysfunction S epsis type: sepsis due to unspecified organism Severe sepsis acute organ d ysfunction type: acute renal failure Severe sepsis shock status: without septic shock Code(s): A41.9 - Sepsis, unspecified organism Status: Acute Assessment and Plan: * as evidence by lactic acidosis, fever, tachycardia, tachypnea, and confusion * blood cultures with MRSA and urine culture with Pseudomonas * on IV antibiotics * follow repeat cultures * history of C. 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: Chronic Assessment and Plan: * chronic issue * previous evaluation noted: * cortisol level low - cosyntropin resulted in a cortisol level 31 * TSH is normal * CT of the head + chest x-ray are negative for masses/tumors * no history of cancer * off PPI * likely due to the renal insufficiency and volume overload * consider switching all IVPB meds to normal saline carrier fluid if sodium declines further * follow trend of sodium (5) Anemia: Qualifiers: Anemia type: other cause Other causes of anemia: chronic disease, other Qualified Code(s): D63.8 - Anemia in other chronic diseases classified elsewhere Code(s): D64.9 - Anemia, unspecified Status: Acute Assessment and Plan: * due to ZORAN, possible new mild CKD, and acute illness currently and from last hospitalization * follow trend of H/H * PRBC transfusion per protocol * consider empiric Epogen therapy (6) C. difficile diarrhea: Code(s): A04.72 - Enterocolitis due to Clostridium difficile, not specified as recurrent Status: Acute Assessment and Plan: * completed course of oral vancomycin and IV flagyl (?) * supportive therapy Will continue to follow Subjective Date/time seen: 07/18/22 10:57 Reasonably diuresis s/p IV albumin + IV bumex but creatinine up a bit in response to this intervention; BiPAP being used for respiratory support; CXR results noted; overall, seems to be doing a tad better today; no acute distress voiced at the time of my visit. Exam Narrative: General: ill appearing
--- NOTE | 2022-07-18 10:57 | PM.PNNEP ---
Progress Note: A&P Assessment and Plan (1) ZORAN (acute kidney injury): Code(s): N17.9 - Acute kidney failure, unspecified Status: Acute Assessment and Plan: suffered ZORAN/ARF on last hospitalization due to sepsis creatinine seems to stabilized in the 2ish range by the time of discharge the hope was that his kidney function would continue to improve his creatinine improved to 1.2mg/dl up a bit in response to diuresis previous evaluation noted: renal ultrasound normal urine electrolytes are pre-renal CPK normal suspect still may need chronic diuretic therapy IV albumin chased by IV bumex x 6 doses (completed 07/17/22) holding further diuresis given bump in creatinine this may be a situation where except a higher creatinine to achieve relative euvolemia.... follow I/Os (2) Sepsis: Qualifiers: Sepsis acute organ dysfunction status: with acute organ dysfunction Sepsis type: sepsis due to unspecified organism Severe sepsis acute organ dysfunction type: acute renal failure Severe sepsis shock status: without septic shock Code(s): A41.9 - Sepsis, unspecified organism Status: Acute Assessment and Plan: as evidence by lactic acidosis, fever, tachycardia, tachypnea, and confusion blood cultures with MRSA and urine culture with Pseudomonas on IV antibiotics follow repeat cultures history of C. diff colitis but no mention of this of CT imaging (3) Pleural effusion: Code(s): J90 - Pleural effusion, not elsewhere classified Status: Acute Assessment and Plan: likely to third spacing from hypoalbuminemia from recent acute illness/hospitalization getting IV albumin chased by IV bumex (last dose today) s/p thoracentesis (on 07/10/22) follow repeat CXR (4) Hyponatremia: Code(s): E87.1 - Hypo-osmolality and hyponatremia Status: Chronic Assessment and Plan: chronic issue previous evaluation noted: cortisol level low - cosyntropin resulted in a cortisol level [address] of the head + chest x-ray are negative for masses/tumors no history of cancer off PPI likely due to the renal insufficiency and volume overload consider switching all IVPB meds to normal saline carrier fluid if sodium declines further follow trend of sodium (5) Anemia: Qualifiers: Anemia type: other cause Other causes of anemia: chronic disease, other Qualified Code(s): D63.8 - Anemia in other chronic diseases classified elsewhere Code(s): D64.9 - Anemia, unspecified Status: Acute Assessment and Plan: due to ZORAN, possible new mild CKD, and acute illness currently and from last hospitalization follow trend of H/H PRBC transfusion per protocol consider empiric Epogen therapy (6) C. difficile diarrhea: Code(s): A04.72 - Enterocolitis due to Clostridium difficile, not specified as recurrent Status: Acute Assessment and Plan: completed course of oral vancomycin and IV flagyl (?) supportive therapy Will continue to follow Subjective Date/time seen: 07/18/22 10:57 Reasonably diuresis s/p IV albumin + IV bumex but creatinine up a bit in response to this intervention; BiPAP being used for respiratory support; CXR results noted; overall, seems to be doing a tad better today; no acute distress voiced at the time of my visit. Exam Narrative: General: ill appearing male laying in bed in NAD Heart: normal S1 and S2; no rub Lungs: coarse and decreased at bases with some crackles noted Abdomen: soft, nontender, nondistended, positive bowel sounds Extremities: no cyanosis or clubbing; 1+ edema Skin: warm and intact Objective Data Vital Signs Vital Signs: Vital Signs Temp Pulse Resp BP Pulse Ox O2 Del Method O2 Flow Rate 07/18/22 10:00 98 07/18/22 08:00 82 07/18/22 08:00 95 Nasal Cannula 2 07/18/22 08:21 86 18
[2022-07-18] MEDS: guaiFENesin 200 MG/10 ML UDC 400 MG PO (10:58)
--- NOTE | 2022-07-18 12:53 | PCOTNOTE ---
Per RN, patient having increased difficulty breathing and just placed back on bipap. Patient's RN requested therapy try later to see patient. Will continue OT per plan of care.
--- NOTE | 2022-07-18 15:08 | PM.IMPN ---
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, malnutrition, c dif colitis, chronic collagenous colitis, FOBT pending, previously positive at last admission Complicated by malnutrition, FOBT pending, GI consult pending FOBT was positive 06/25 when patient also required a transfusion, hgb stable after that until this morning 07/10: acute drop in hgb to 6.2 from 8.5 at admission, 7.1 yesterday, 2 units pRBC ordered and being given, this also happened during the last admission, GI was consulted, no workup deemed necessary, hgb stable after transfusion last time (06/25/22), blood loss was thought to be secondary to occult bleeding from chronic collagenous colitis complicated by C diff colitis with a fecal occult blood test positive on last admission, repeat fecal occult negative 07/11: Hemoglobin stable at 7.8, was 7.3 after transfusion yesterday, continue to monitor 07/12: Hemoglobin stable at 7.9 today. Eliquis on hold. GI following. Recent C diff colitis. Transfusion of 2 units of PRBC on 07/10/2022. History of chronic collagenous colitis. FOBT negative this admission. Will resume Eliquis 07/16: hemoglobin down to 6.9. Will transfuse 1 unit of PRBC no signs of bleeding present currently will continue to monitor 07/17: H&H is stable. Status post transfusion of 1 unit of PRBC on 07/16/2022. No active signs of bleeding (2) Sepsis: Qualifiers: Sepsis acute organ dysfunction status: with acute organ dysfunction Sepsis type: sepsis due to unspecified organism Severe sepsis acute organ dysfunction type: acute renal failure Severe sepsis shock status: without septic shock Code(s): A41.9 - Sepsis, unspecified organism Status: Acute Assessment and Plan: Continue IV Flagyl and oral vancomycin for C diff colitis, cefepime for Pseudomonas UTI, IV vancomycin for MRSA bacteremia, replete blood cultures from 07/11 no growth to date IV vanc, h/o MRSA bacteremia from last admission that was treated with daptomycin for approximately 14 days, possibly incompletely treated? Blood cultures positive for MRSA again here, source is most likely his central line catheter from the last admission, PERRY done at last admission was negative for vegetation, once blood cultures are negative, at that point would place PICC line and treat for 21 days from negative blood cultures with IV antibiotics due to recurrence and underlying immunocompromised state, would discuss with ID pharmacist best IV medication for this patient, will continue IV vancomycin for now Diarrhea appears to be at baseline, previously on immodium + budesonide for collagenous colitis, held for now due to C diff infection, repeat C diff test pending Thoracentesis performed 07/10: Cytology with mesothelial cells histiocytes and lymphocytes Urine culture came back positive for pseudomonas, cont cefepime, would complete a 7 day course vancomycin IV. MRSA bacteremia recurrent. Possibly incomplete treatment. Source most likely central line catheter from last admission. Perry last admission was negative. Blood culture from 07/11/2020 2s negative. Will need to plan for 4 weeks course of antibiotics starting from the negative blood culture which is on 07/11/2022. Due to vancomycin being every 8 in our option of changing it to daptomycin at discharge however will get culture sensitivity done if possible for daptomycin before that switch. This Has been ordered and discussed with the ID pharmacist. Daptomycin will not work for his underlying pneumonia if it is related to his MRSA pneumonia. so leaning towards continuing on vancomycin IV for total course. Four weeks from 07/11/2022
[2022-07-18] MEDS: TAMSULOSIN HCL 0.4 MG CAPSULE PO (21:14)
[2022-07-18] MEDS: ZOLPIDEM TARTRATE (*CRX) 5 MG TABLET 10 MG PO (21:14)
[2022-07-18] MEDS: ATORVASTATIN 10 MG TABLET PO (21:14)
[2022-07-18 23:49] LABS: Vancomycin Trough 20.8 ug/mL (10.0-20.0)
[2022-07-19] VITALS (25 sets, daily range): BP systolic 123–143; BP diastolic 72–87; PULSE 68–95; RESP 15–26; TEMP 36.2–37.1; O2SAT 95–100
[2022-07-19] MEDS: ALBUTEROL SULFATE NEB 2.5 MG/3 ML INH INHALATION ×4 (01:36→20:40)
[2022-07-19] MEDS: IPRATROPIUM BR 0.02% INH SOLN 0.5 MG/2.5 ML VIAL INHALATION ×4 (01:36→20:40)
[2022-07-19 05:18] LABS: Alanine Aminotransferase 28 U/L (6-50); Albumin Level 3.2 g/dL (3.5-5.1); Alkaline Phosphatase 69 U/L (38-126); Anion Gap 6 mmol/L (8-16); Aspartate Amino Transferase 45 U/L (17-59); Bilirubin,Total 0.5 mg/dL (0.2-1.3); Blood Urea Nitrogen 31 mg/dL (9-20); Calcium 8.2 mg/dL (8.4-10.2); Carbon Dioxide 28 mmol/L (22-30); Chloride 92 mmol/L (98-107); Estimated CRCL calculation 35 ml/min; Estimated Glomerular Filt Rate 45; Glucose 119 mg/dL (65-110); Magnesium 1.9 mg/dL (1.6-2.3); NT Pro B Type Natriuretic Pept 23700 pg/mL (5-100); Potassium 3.8 mmol/L (3.4-5.0); Sodium 126 mmol/L (137-145)
[2022-07-19 05:21] LABS: Hematocrit 23.8 % (42.0-52.0); Hemoglobin 7.8 g/dL (14.0-18.0); Immature Granulocyte Absolute 0.03 K/mm3 (0.00-0.031); Immature Granulocyte Percent A 0.8 % (0-0.5); Lymphocytes Percent Auto 5.3 % (18.3-44.2); Mean Corpuscular HGB Conc 32.8 g/dl (32-36); Mean Corpuscular Hemoglobin 33.3 pg (26-34); Mean Corpuscular Volume 101.7 fl (80-100); Mean Platelet Volume 10.8 fl (7.4-10.4); Monocytes Absolute Auto 0.3 K/mm3 (0.1-0.6); Monocytes Percent Auto 8.3 % (2.6-8.5); Neutrophils Absolute Auto 3.2 K/mm3 (1.3-6.7); Neutrophils Percent Auto 85.6 % (45.5-73.1); Platelet Count Result 100 k/mm3 (150-375); Red Blood Count 2.34 M/mm3 (4.6-6.20); Red Cell Distribution Width 17.7 % (11.5-14.5); White Blood Count 3.8 K/mm3 (4.5-10.0)
[2022-07-19] MEDS: LEVOTHYROXINE SODIUM 50 MCG TABLET PO (05:26)
[2022-07-19] MEDS: methylPREDNISolone SOD SUCC 40 MG VIAL IV PUSH ×3 (05:26→21:09)
[2022-07-19] MEDS: BUDESONIDE RESPULE NEB 0.5 MG/2 ML AMP INHALATION ×2 (08:06→20:40)
[2022-07-19] MEDS: APIXABAN 2.5 MG TABLET PO ×2 (08:36→20:21)
[2022-07-19] MEDS: BENZONATATE 100 MG CAPSULE 200 MG PO ×3 (08:36→16:30)
[2022-07-19] MEDS: CALCIUM CARBONATE (OSCAL) 500 MG TABLET PO (08:36)
[2022-07-19] MEDS: SACCHAROMYCES BOULARDII 250 MG CAPSULE PO ×3 (08:36→16:30)
[2022-07-19] MEDS: FLUTICASONE PROPIONATE 0.05% NA SPR 16 GM BTL (*BKC) 2 SPRAY NASAL (08:36)
[2022-07-19] MEDS: METOPROLOL SUCCINATE EXT REL 50 MG TABCR PO ×2 (08:36→20:20)
[2022-07-19] MEDS: HYDROCORTISONE/PRAMOXINE 2.5% 30 GM CREAM 1 APPLIC RECTAL (08:36)
[2022-07-19] MEDS: FAMOTIDINE 20 MG TABLET PO ×2 (08:36→20:20)
[2022-07-19] MEDS: PANTOPRAZOLE SOD SESQUIHYDRATE 20 MG TAB PO (08:36)
[2022-07-19] MEDS: MAGNESIUM OXIDE 400 MG TABLET PO (08:37)
[2022-07-19] MEDS: LIDOCAINE 5% PATCH 1 PATCH TRANSDERM (08:37)
--- NOTE | 2022-07-19 09:32 | PCOTNOTE ---
Attempted to see patient for OT, patient reports I'm still vegging - patient requested therapist come back after lunch to perform ADLs. Will try to see patient for OT then.
--- NOTE | 2022-07-19 12:37 | P.PNNP_ITS ---
Progress Note: A&P Assessment and Plan (1) ZORAN (acute kidney injury): Code(s): N17.9 - Acute kidney failure, unspecified Status: Acute Assessment and Plan: * suffered ZORAN/ARF on last hospitalization due to sepsis * creatinine seems to stabilized to 1.2mg/dl * creatinine up a bit in response to diuresis * previous evaluation noted: * renal ultrasound normal * urine electrolytes are pre-renal * CPK normal * suspect still may need chronic diuretic therapy * IV albumin chased by IV bumex x 6 doses (completed 07/17/22) * holding further diuresis given bump in creatinine * HOWEVER, this may be a situation where except a higher creatinine to achieve relative euvolemia.... * follow I/Os (2) Sepsis: Qualifiers: Sepsis acute organ dysfunction status: with acute organ dysfunction Sepsis type: sepsis due to unspecified organism Severe sepsis acute organ dysfunction type: acute renal failure Severe sepsis shock status: without sep tic shock Code(s): A41.9 - Sepsis, unspecified organism Status: Acute Assessment and Plan: * as evidence by lactic acidosis, fever, tachycardia, tachypnea, and confusion * blood cultures with MRSA and urine culture with Pseudomonas * on IV antibiotics * follow repeat cultures * history of C. diff colitis but no mention of this of CT imaging (3) Pleural effusion: Code(s): J90 - Pleural effusion, not elsewhere classified Status: Acute Assessment and Plan: * likely to third spacing from hypoalbuminemia from recent acute illness/hospitalization * s/p IV albumin chased by IV bumex (last dose 07/17/22) * s/p thoracentesis (on 07/10/22) * follow repeat CXR (4) Hyponatremia: Code(s): E87.1 - Hypo-osmolality and hyponatremia Status: Chronic Assessment and Plan: * chronic issue * previous evaluation noted: * cortisol level low - cosyntropin resulted in a cortisol level 31 * TSH is normal * CT of the head + chest x-ray are negative for masses/tumors * no history of cancer * off PPI * likely due to the renal insufficiency and volume overload * consider switching all IVPB meds to normal saline carrier fluid if sodium declines further * follow trend of sodium (5) Anemia: Qualifiers: Anemia type: other cause Other causes of anemia: chronic disease, other Qualified Code(s): D63.8 - Anemia in other chronic diseases classified elsewhere Code(s): D64.9 - Anemia, unspecified Status: Acute Assessment and Plan: * due to ZORAN, possible new mild CKD, and acute illness currently and from last hospitalization * follow trend of H/H * PRBC transfusion per protocol * consider empiric Epogen therapy (6) C. difficile diarrhea: Code(s): A04.72 - Enterocolitis due to Clostridium difficile, not specified as recurrent Status: Acute Assessment and Plan: * completed course of oral vancomycin and IV flagyl * supportive therapy Will continue to follow Subjective Date/time seen: 07/19/22 12:37 He states that is feeling reasonably well; even with diuretics on hold, remains in negative fluid balance at this time; swelling/edema in lower extremities seems a bit better; respiratory status also appears stable as well; no acute distress voiced. Exam Narrative: General: ill appearing male laying in bed in NAD Heart: normal S1 and S2; no rub Lungs: coarse and decreased at bases with some crackles noted Abdome
--- NOTE | 2022-07-19 12:37 | PM.PNNEP ---
Progress Note: A&P Assessment and Plan (1) ZORAN (acute kidney injury): Code(s): N17.9 - Acute kidney failure, unspecified Status: Acute Assessment and Plan: suffered ZORAN/ARF on last hospitalization due to sepsis creatinine seems to stabilized to 1.2mg/dl creatinine up a bit in response to diuresis previous evaluation noted: renal ultrasound normal urine electrolytes are pre-renal CPK normal suspect still may need chronic diuretic therapy IV albumin chased by IV bumex x 6 doses (completed 07/17/22) holding further diuresis given bump in creatinine HOWEVER, this may be a situation where except a higher creatinine to achieve relative euvolemia.... follow I/Os (2) Sepsis: Qualifiers: Sepsis acute organ dysfunction status: with acute organ dysfunction Sepsis type: sepsis due to unspecified organism Severe sepsis acute organ dysfunction type: acute renal failure Severe sepsis shock status: without septic shock Code(s): A41.9 - Sepsis, unspecified organism Status: Acute Assessment and Plan: as evidence by lactic acidosis, fever, tachycardia, tachypnea, and confusion blood cultures with MRSA and urine culture with Pseudomonas on IV antibiotics follow repeat cultures history of C. diff colitis but no mention of this of CT imaging (3) Pleural effusion: Code(s): J90 - Pleural effusion, not elsewhere classified Status: Acute Assessment and Plan: likely to third spacing from hypoalbuminemia from recent acute illness/hospitalization s/p IV albumin chased by IV bumex (last dose 07/17/22) s/p thoracentesis (on 07/10/22) follow repeat CXR (4) Hyponatremia: Code(s): E87.1 - Hypo-osmolality and hyponatremia Status: Chronic Assessment and Plan: chronic issue previous evaluation noted: cortisol level low - cosyntropin resulted in a cortisol level [address] of the head + chest x-ray are negative for masses/tumors no history of cancer off PPI likely due to the renal insufficiency and volume overload consider switching all IVPB meds to normal saline carrier fluid if sodium declines further follow trend of sodium (5) Anemia: Qualifiers: Anemia type: other cause Other causes of anemia: chronic disease, other Qualified Code(s): D63.8 - Anemia in other chronic diseases classified elsewhere Code(s): D64.9 - Anemia, unspecified Status: Acute Assessment and Plan: due to ZORAN, possible new mild CKD, and acute illness currently and from last hospitalization follow trend of H/H PRBC transfusion per protocol consider empiric Epogen therapy (6) C. difficile diarrhea: Code(s): A04.72 - Enterocolitis due to Clostridium difficile, not specified as recurrent Status: Acute Assessment and Plan: completed course of oral vancomycin and IV flagyl supportive therapy Will continue to follow Subjective Date/time seen: 07/19/22 12:37 He states that is feeling reasonably well; even with diuretics on hold, remains in negative fluid balance at this time; swelling/edema in lower extremities seems a bit better; respiratory status also appears stable as well; no acute distress voiced. Exam Narrative: General: ill appearing male laying in bed in NAD Heart: normal S1 and S2; no rub Lungs: coarse and decreased at bases with some crackles noted Abdomen: soft, nontender, nondistended, positive bowel sounds Extremities: no cyanosis or clubbing; 1+ edema Skin: no rash Objective Data Vital Signs Vital Signs: Vital Signs Temp Pulse Resp BP Pulse Ox O2 Del Method O2 Flow Rate 07/19/22 12:00 95 Nasal Cannula 2 07/19/22 10:00 86 07/19/22 08:00 76 07/19/22 08:00 95 Nasal Cannula 2 07/19/22 08:00 97.3 F L 77 15 128/80 100 07/19/22 08:07 72 18 07/19/22 06:00 83 07/19/22 04:00 97
--- NOTE | 2022-07-19 14:06 | PCOTNOTE ---
Attempted to see Patient this afternoon. 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 He states they have made a plan, he will stick to it and declines performing any activity until then.
[2022-07-19] MEDS: guaiFENesin 200 MG/10 ML UDC 400 MG PO (15:12)
--- NOTE | 2022-07-19 18:34 | PM.IMPN ---
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, malnutrition, c dif colitis, chronic collagenous colitis, FOBT pending, previously positive at last admission Complicated by malnutrition, FOBT pending, GI consult pending FOBT was positive 06/25 when patient also required a transfusion, hgb stable after that until this morning 07/10: acute drop in hgb to 6.2 from 8.5 at admission, 7.1 yesterday, 2 units pRBC ordered and being given, this also happened during the last admission, GI was consulted, no workup deemed necessary, hgb stable after transfusion last time (06/25/22), blood loss was thought to be secondary to occult bleeding from chronic collagenous colitis complicated by C diff colitis with a fecal occult blood test positive on last admission, repeat fecal occult negative 07/11: Hemoglobin stable at 7.8, was 7.3 after transfusion yesterday, continue to monitor 07/12: Hemoglobin stable at 7.9 today. Eliquis on hold. GI following. Recent C diff colitis. Transfusion of 2 units of PRBC on 07/10/2022. History of chronic collagenous colitis. FOBT negative this admission. Will resume Eliquis 07/16: hemoglobin down to 6.9. Will transfuse 1 unit of PRBC no signs of bleeding present currently will continue to monitor 07/17: H&H is stable. Status post transfusion of 1 unit of PRBC on 07/16/2022. No active signs of bleeding 07/19/2022 interval history: Patient stated on BiPAP throughout the day as well as at night. he feels a little better today. Still has significant cough with wheezing. No chest pain, patient has a blood culture is positive Pseudomonas patient is being treated with Cefepime, and vancomycin, there was a concern for C diff is negative, patient also had anemia patient his hemoglobin dropped 6.2 from 8.5 upon admission patient received 2 units of pack RBC, patient FOBT was positive GI consult and no workup is recommended, globin is trending down will continue to monitor. (2) Sepsis: Qualifiers: Sepsis acute organ dysfunction status: with acute organ dysfunction Sepsis type: sepsis due to unspecified organism Severe sepsis acute organ dysfunction type: acute renal failure Severe sepsis shock status: without septic shock Code(s): A41.9 - Sepsis, unspecified organism Status: Acute Assessment and Plan: Continue IV Flagyl and oral vancomycin for C diff colitis, cefepime for Pseudomonas UTI, IV vancomycin for MRSA bacteremia, replete blood cultures from 07/11 no growth to date IV vanc, h/o MRSA bacteremia from last admission that was treated with daptomycin for approximately 14 days, possibly incompletely treated? Blood cultures positive for MRSA again here, source is most likely his central line catheter from the last admission, PERRY done at last admission was negative for vegetation, once blood cultures are negative, at that point would place PICC line and treat for 21 days from negative blood cultures with IV antibiotics due to recurrence and underlying immunocompromised state, would discuss with ID pharmacist best IV medication for this patient, will continue IV vancomycin for now Diarrhea appears to be at baseline, previously on immodium + budesonide for collagenous colitis, held for now due to C diff infection, repeat C diff test pending Thoracentesis performed 07/10: Cytology with mesothelial cells histiocytes and lymphocytes Urine culture came back positive for pseudomonas, cont cefepime, would complete a 7 day course vancomycin IV. MRSA bacteremia recurrent. Possibly incomplete treatment. Source most likely central line catheter from last admission. Perry last admission was negative. Blo
[2022-07-19] MEDS: TAMSULOSIN HCL 0.4 MG CAPSULE PO (20:21)
[2022-07-19] MEDS: ATORVASTATIN 10 MG TABLET PO (20:21)
[2022-07-19] MEDS: ZOLPIDEM TARTRATE (*CRX) 5 MG TABLET 10 MG PO (21:09)
[2022-07-20] VITALS (23 sets, daily range): BP systolic 102–126; BP diastolic 62–80; PULSE 70–90; RESP 15–22; TEMP 35.9–37.1; O2SAT 92–100
[2022-07-20] MEDS: ALBUTEROL SULFATE NEB 2.5 MG/3 ML INH INHALATION ×3 (02:59→20:38)
[2022-07-20] MEDS: IPRATROPIUM BR 0.02% INH SOLN 0.5 MG/2.5 ML VIAL INHALATION ×3 (02:59→20:39)
[2022-07-20 04:55] LABS: Alanine Aminotransferase 34 U/L (6-50); Alkaline Phosphatase 63 U/L (38-126); Anion Gap 8 mmol/L (8-16); Aspartate Amino Transferase 52 U/L (17-59); Bilirubin,Total 0.6 mg/dL (0.2-1.3); Blood Urea Nitrogen 36 mg/dL (9-20); Calcium 8.2 mg/dL (8.4-10.2); Carbon Dioxide 29 mmol/L (22-30); Chloride 94 mmol/L (98-107); Estimated CRCL calculation 34 ml/min; Estimated Glomerular Filt Rate 48; Glucose 108 mg/dL (65-110); Sodium 131 mmol/L (137-145)
[2022-07-20] MEDS: LEVOTHYROXINE SODIUM 50 MCG TABLET PO (05:42)
[2022-07-20] MEDS: methylPREDNISolone SOD SUCC 40 MG VIAL IV PUSH ×3 (05:42→21:06)
[2022-07-20] MEDS: BUDESONIDE RESPULE NEB 0.5 MG/2 ML AMP INHALATION ×2 (07:34→20:39)
[2022-07-20] MEDS: SACCHAROMYCES BOULARDII 250 MG CAPSULE PO ×3 (08:15→17:00)
[2022-07-20] MEDS: METOPROLOL SUCCINATE EXT REL 50 MG TABCR PO ×2 (08:15→21:01)
[2022-07-20] MEDS: PANTOPRAZOLE SOD SESQUIHYDRATE 20 MG TAB PO (08:15)
[2022-07-20] MEDS: MAGNESIUM OXIDE 400 MG TABLET PO (08:16)
[2022-07-20] MEDS: CALCIUM CARBONATE (OSCAL) 500 MG TABLET PO (08:17)
[2022-07-20] MEDS: FAMOTIDINE 20 MG TABLET PO ×2 (08:17→21:01)
[2022-07-20] MEDS: BUMETANIDE INJ 1 MG/4 ML VIAL 2 MG IV PUSH ×2 (08:17→17:00)
[2022-07-20] MEDS: APIXABAN 2.5 MG TABLET PO ×2 (08:18→21:08)
[2022-07-20] MEDS: BENZONATATE 100 MG CAPSULE 200 MG PO ×3 (08:19→17:04)
[2022-07-20 10:53] LABS: Creatinine Urine 20.6 mg/dL; Total Protein Urine Random 30 mg/dL; Ur Ttl Prot Creatinine Ratio 1.46 mg/mg (0-0.20)
--- NOTE | 2022-07-20 12:46 | P.PNNP_ITS ---
Progress Note: A&P Assessment and Plan (1) ZORAN (acute kidney injury): Code(s): N17.9 - Acute kidney failure, unspecified Status: Acute Assessment and Plan: * suffered ZORAN/ARF on last hospitalization due to sepsis * creatinine seems to stabilized to 1.2mg/dl * creatinine up a bit in response to diuresis * previous evaluation noted: * renal ultrasound normal * urine electrolytes are pre-renal * CPK normal * suspect still may need chronic diuretic therapy * IV albumin chased by IV bumex x 6 doses (completed 07/17/22) * resumed on IV bumex today (07/20/22) * this may be a situation where we have to accept a higher creatinine to achieve relative euvolemia.... * follow I/Os (2) Sepsis: Qualifiers: Sepsis acute organ dysfunction status: with acute organ dysfunction Sepsis type: sepsis due to unspecified organism Severe sepsis acute organ dysfunction type: acute renal failure Severe sepsis shock status: without septic shock Code(s): A41.9 - Sepsis, unspecified organism Status: Acute Assessment and Plan: * as evidence by lactic acidosis, fever, tachycardia, tachypnea, and confusion * blood cultures with MRSA and urine culture with Pseudomonas * on IV antibiotics * follow repeat cultures * history of C. diff colitis but no mention of this of CT imaging (3) Pleural effusion: Code(s): J90 - Pleural effusion, not elsewhere classified Status: Acute Assessment and Plan: * likely to third spacing from hypoalbuminemia from recent acute i llness/hospitalization * s/p IV albumin chased by IV bumex (last dose 07/17/22) * s/p thoracentesis (on 07/10/22) * diuresis as tolerated * follow repeat CXR (4) Hyponatremia: Code(s): E87.1 - Hypo-osmolality and hyponatremia Status: Chronic Assessment and Plan: * chronic issue * previous evaluation noted: * cortisol level low - cosyntropin resulted in a cortisol level 31 * TSH is normal * CT of the head + chest x-ray are negative for masses/tumors * no history of cancer * off PPI * likely due to the renal insufficiency and volume overload * consider switching all IVPB meds to normal saline carrier fluid if sodium declines further * follow trend of sodium (5) Anemia: Qualifiers: Anemia type: other cause Other causes of anemia: chronic disease, other Qualified Code(s): D63.8 - Anemia in other chronic diseases classified elsewhere Code(s): D64.9 - Anemia, unspecified Status: Acute Assessment and Plan: * due to ZORAN, possible new mild CKD, and acute illness currently and from last hospitalization * follow trend of H/H * PRBC transfusion per protocol * consider empiric Epogen therapy (6) C. difficile diarrhea: Code(s): A04.72 - Enterocolitis due to Clostridium difficile, not specified as recurrent Status: Acute Assessment and Plan: * completed course of oral vancomycin and IV flagyl * supportive therapy Will continue to follow Subjective Date/time seen: 07/20/22 12:46 Overall, seems to be doing reasonably well; slept well overnight with use of BiPAP therapy; AM CXR still with congestion so IV diuretics restarted; renal function a bit better with holding diuretics; swelling/LE edema seems better in general. Exam Narrative: General: ill appearing male laying in bed in NAD Heart: normal S1 and S2; no rub Lungs: coarse and decreased at bases Abdomen: soft, nont
--- NOTE | 2022-07-20 12:46 | PM.PNNEP ---
Progress Note: A&P Assessment and Plan (1) ZORAN (acute kidney injury): Code(s): N17.9 - Acute kidney failure, unspecified Status: Acute Assessment and Plan: suffered ZORAN/ARF on last hospitalization due to sepsis creatinine seems to stabilized to 1.2mg/dl creatinine up a bit in response to diuresis previous evaluation noted: renal ultrasound normal urine electrolytes are pre-renal CPK normal suspect still may need chronic diuretic therapy IV albumin chased by IV bumex x 6 doses (completed 07/17/22) resumed on IV bumex today (07/20/22) this may be a situation where we have to accept a higher creatinine to achieve relative euvolemia.... follow I/Os (2) Sepsis: Qualifiers: Sepsis acute organ dysfunction status: with acute organ dysfunction Sepsis type: sepsis due to unspecified organism Severe sepsis acute organ dysfunction type: acute renal failure Severe sepsis shock status: without septic shock Code(s): A41.9 - Sepsis, unspecified organism Status: Acute Assessment and Plan: as evidence by lactic acidosis, fever, tachycardia, tachypnea, and confusion blood cultures with MRSA and urine culture with Pseudomonas on IV antibiotics follow repeat cultures history of C. diff colitis but no mention of this of CT imaging (3) Pleural effusion: Code(s): J90 - Pleural effusion, not elsewhere classified Status: Acute Assessment and Plan: likely to third spacing from hypoalbuminemia from recent acute illness/hospitalization s/p IV albumin chased by IV bumex (last dose 07/17/22) s/p thoracentesis (on 07/10/22) diuresis as tolerated follow repeat CXR (4) Hyponatremia: Code(s): E87.1 - Hypo-osmolality and hyponatremia Status: Chronic Assessment and Plan: chronic issue previous evaluation noted: cortisol level low - cosyntropin resulted in a cortisol level [address] of the head + chest x-ray are negative for masses/tumors no history of cancer off PPI likely due to the renal insufficiency and volume overload consider switching all IVPB meds to normal saline carrier fluid if sodium declines further follow trend of sodium (5) Anemia: Qualifiers: Anemia type: other cause Other causes of anemia: chronic disease, other Qualified Code(s): D63.8 - Anemia in other chronic diseases classified elsewhere Code(s): D64.9 - Anemia, unspecified Status: Acute Assessment and Plan: due to ZORAN, possible new mild CKD, and acute illness currently and from last hospitalization follow trend of H/H PRBC transfusion per protocol consider empiric Epogen therapy (6) C. difficile diarrhea: Code(s): A04.72 - Enterocolitis due to Clostridium difficile, not specified as recurrent Status: Acute Assessment and Plan: completed course of oral vancomycin and IV flagyl supportive therapy Will continue to follow Subjective Date/time seen: 07/20/22 12:46 Overall, seems to be doing reasonably well; slept well overnight with use of BiPAP therapy; AM CXR still with congestion so IV diuretics restarted; renal function a bit better with holding diuretics; swelling/LE edema seems better in general. Exam Narrative: General: ill appearing male laying in bed in NAD Heart: normal S1 and S2; no rub Lungs: coarse and decreased at bases Abdomen: soft, nontender, nondistended, positive bowel sounds Extremities: no cyanosis or clubbing; 1+ edema Skin: warm and dry Objective Data Vital Signs Vital Signs: Vital Signs Temp Pulse Resp BP Pulse Ox O2 Del Method O2 Flow Rate 07/20/22 12:00 74 07/20/22 12:00 100 BiPAP 07/20/22 12:00 97.9 F 77 16 126/80 100 07/20/22 08:00 99 BiPAP 07/20/22 10:00 90 07/20/22 08:00 87 07/20/22 10:00 High Flow Therapy with Na 2 07/20/22 08:15 88
--- NOTE | 2022-07-20 13:49 | PM.IMPN ---
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, malnutrition, c dif colitis, chronic collagenous colitis, FOBT pending, previously positive at last admission Complicated by malnutrition, FOBT pending, GI consult pending FOBT was positive 06/25 when patient also required a transfusion, hgb stable after that until this morning 07/10: acute drop in hgb to 6.2 from 8.5 at admission, 7.1 yesterday, 2 units pRBC ordered and being given, this also happened during the last admission, GI was consulted, no workup deemed necessary, hgb stable after transfusion last time (06/25/22), blood loss was thought to be secondary to occult bleeding from chronic collagenous colitis complicated by C diff colitis with a fecal occult blood test positive on last admission, repeat fecal occult negative 07/11: Hemoglobin stable at 7.8, was 7.3 after transfusion yesterday, continue to monitor 07/12: Hemoglobin stable at 7.9 today. Eliquis on hold. GI following. Recent C diff colitis. Transfusion of 2 units of PRBC on 07/10/2022. History of chronic collagenous colitis. FOBT negative this admission. Will resume Eliquis 07/16: hemoglobin down to 6.9. Will transfuse 1 unit of PRBC no signs of bleeding present currently will continue to monitor 07/17: H&H is stable. Status post transfusion of 1 unit of PRBC on 07/16/2022. No active signs of bleeding 07/20/2022 interval history: Patient stated on BiPAP throughout the day as well as at night. he feels a little better today. Still has significant cough with wheezing. No chest pain, patient has a blood culture is positive Pseudomonas patient is being treated with Cefepime, and vancomycin, there was a concern for C diff which is negative, patient also had anemia patient his hemoglobin dropped 6.2 from 8.5 upon admission patient received 2 units of pack RBC, patient FOBT was positive GI consulted and no workup is recommended, hgb is trending down will continue to monitor. patient has no new complaints (2) Sepsis: Qualifiers: Sepsis acute organ dysfunction status: with acute organ dysfunction Sepsis type: sepsis due to unspecified organism Severe sepsis acute organ dysfunction type: acute renal failure Severe sepsis shock status: without septic shock Code(s): A41.9 - Sepsis, unspecified organism Status: Acute Assessment and Plan: Continue IV Flagyl and oral vancomycin for C diff colitis, cefepime for Pseudomonas UTI, IV vancomycin for MRSA bacteremia, replete blood cultures from 07/11 no growth to date IV vanc, h/o MRSA bacteremia from last admission that was treated with daptomycin for approximately 14 days, possibly incompletely treated? Blood cultures positive for MRSA again here, source is most likely his central line catheter from the last admission, PERRY done at last admission was negative for vegetation, once blood cultures are negative, at that point would place PICC line and treat for 21 days from negative blood cultures with IV antibiotics due to recurrence and underlying immunocompromised state, would discuss with ID pharmacist best IV medication for this patient, will continue IV vancomycin for now Diarrhea appears to be at baseline, previously on immodium + budesonide for collagenous colitis, held for now due to C diff infection, repeat C diff test pending Thoracentesis performed 07/10: Cytology with mesothelial cells histiocytes and lymphocytes Urine culture came back positive for pseudomonas, cont cefepime, would complete a 7 day course vancomycin IV. MRSA bacteremia recurrent. Possibly incomplete treatment. Source most likely central line catheter from last admission. [place]
[2022-07-20] MEDS: ZOLPIDEM TARTRATE (*CRX) 5 MG TABLET 10 MG PO (20:59)
[2022-07-20] MEDS: ATORVASTATIN 10 MG TABLET PO (20:59)
[2022-07-20] MEDS: TAMSULOSIN HCL 0.4 MG CAPSULE PO (21:06)
[2022-07-20] MEDS: guaiFENesin 200 MG/10 ML UDC 400 MG PO (23:42)
[2022-07-21] VITALS (29 sets, daily range): BP systolic 107–126; BP diastolic 57–70; PULSE 68–89; RESP 16–30; TEMP 36.1–36.6; O2SAT 94–100
[2022-07-21] MEDS: ALBUTEROL SULFATE NEB 2.5 MG/3 ML INH INHALATION ×4 (02:49→19:56)
[2022-07-21] MEDS: IPRATROPIUM BR 0.02% INH SOLN 0.5 MG/2.5 ML VIAL INHALATION ×4 (02:50→19:57)
[2022-07-21 04:33] LABS: Hematocrit 21.7 % (42.0-52.0); Immature Platelet Fraction Pct 6.3 % (0.9-11.2); Mean Corpuscular HGB Conc 32.3 g/dl (32-36); Mean Corpuscular Hemoglobin 32.7 pg (26-34); Mean Corpuscular Volume 101.4 fl (80-100); Mean Platelet Volume 10.2 fl (7.4-10.4); Platelet Count Result 94 k/mm3 (150-375); Red Blood Count 2.14 M/mm3 (4.6-6.20); Red Cell Distribution Width 17.7 % (11.5-14.5); White Blood Count 2.9 K/mm3 (4.5-10.0)
[2022-07-21 04:41] LABS: Anion Gap 7 mmol/L (8-16); Blood Urea Nitrogen 43 mg/dL (9-20); Carbon Dioxide 31 mmol/L (22-30); Chloride 94 mmol/L (98-107); Estimated CRCL calculation 34 ml/min; Estimated Glomerular Filt Rate 48; Glucose 112 mg/dL (65-110); Magnesium 1.8 mg/dL (1.6-2.3); Potassium 3.7 mmol/L (3.4-5.0); Sodium 132 mmol/L (137-145)
[2022-07-21] MEDS: LEVOTHYROXINE SODIUM 50 MCG TABLET PO (06:25)
[2022-07-21] MEDS: methylPREDNISolone SOD SUCC 40 MG VIAL IV PUSH ×3 (06:25→21:11)
[2022-07-21 08:20] LABS: Lactic Acid Reflex 1.5 mmol/L (0.7-2.0)
[2022-07-21] MEDS: PANTOPRAZOLE SOD SESQUIHYDRATE 20 MG TAB PO (08:30)
[2022-07-21] MEDS: SACCHAROMYCES BOULARDII 250 MG CAPSULE PO ×3 (08:30→16:58)
[2022-07-21] MEDS: APIXABAN 2.5 MG TABLET PO ×2 (08:30→21:09)
[2022-07-21] MEDS: METOPROLOL SUCCINATE EXT REL 50 MG TABCR PO ×2 (08:30→21:10)
[2022-07-21] MEDS: BENZONATATE 100 MG CAPSULE 200 MG PO ×3 (08:30→16:57)
[2022-07-21] MEDS: FAMOTIDINE 20 MG TABLET PO ×2 (08:30→21:10)
[2022-07-21] MEDS: EPOETIN ALFA-EPBX 20,000 UNITS/ML VIAL 20000 UNITS SUB-Q (08:31)
[2022-07-21] MEDS: MAGNESIUM OXIDE 400 MG TABLET PO (08:31)
[2022-07-21] MEDS: BUMETANIDE INJ 1 MG/4 ML VIAL 2 MG IV PUSH ×2 (08:33→17:01)
[2022-07-21] MEDS: CALCIUM CARBONATE (OSCAL) 500 MG TABLET PO (08:38)
[2022-07-21] MEDS: FLUTICASONE PROPIONATE 0.05% NA SPR 16 GM BTL (*BKC) 2 SPRAY NASAL (08:47)
[2022-07-21] MEDS: BUDESONIDE RESPULE NEB 0.5 MG/2 ML AMP INHALATION ×2 (09:15→19:57)
--- NOTE | 2022-07-21 10:32 | PCOTNOTE ---
Attempted to see patient this AM, patient refused activity at this time. Patient educated over participating with therapy for improved strength and overall wellness. Patient requested therapist try again at 1pm. Patient refused any activity until later. Will try again to see for OT and continue plan of care.
[2022-07-21] MEDS: PHENYLEPHRINE 1% NA SPR (*BKC) 15 ML BTL 1 SPRAY NASAL (12:00)
[2022-07-21] MEDS: MUPIROCIN 2% OINT 22 GM TUBE 1 APPLIC EACH NARE ×2 (12:00→21:12)
--- NOTE | 2022-07-21 12:01 | PM.PNNEP ---
Progress Note: A&P Assessment and Plan (1) ZORAN (acute kidney injury): Code(s): N17.9 - Acute kidney failure, unspecified Status: Acute Assessment and Plan: suffered ZORAN/ARF on last hospitalization due to sepsis creatinine seemed to stabilized to 1.2mg/dl creatinine up a bit in response to diuresis previous evaluation noted: renal ultrasound normal urine electrolytes are pre-renal CPK normal suspect still may need chronic diuretic therapy IV albumin chased by IV bumex x 6 doses (completed 07/17/22) resumed on IV bumex yesterday (07/20/22) this may be a situation where we have to accept a higher creatinine to achieve relative euvolemia.... follow I/Os (2) Sepsis: Qualifiers: Sepsis acute organ dysfunction status: with acute organ dysfunction Sepsis type: sepsis due to unspecified organism Severe sepsis acute organ dysfunction type: acute renal failure Severe sepsis shock status: without septic shock Code(s): A41.9 - Sepsis, unspecified organism Status: Acute Assessment and Plan: as evidence by lactic acidosis, fever, tachycardia, tachypnea, and confusion blood cultures with MRSA and urine culture with Pseudomonas on IV antibiotics follow repeat cultures history of C. diff colitis but no mention of this of CT imaging (3) Pleural effusion: Code(s): J90 - Pleural effusion, not elsewhere classified Status: Acute Assessment and Plan: likely to third spacing from hypoalbuminemia from recent acute illness/hospitalization s/p IV albumin chased by IV bumex (last dose 07/17/22) s/p thoracentesis (on 07/10/22) diuresis as tolerated follow repeat CXR (4) Hyponatremia: Code(s): E87.1 - Hypo-osmolality and hyponatremia Status: Chronic Assessment and Plan: chronic issue previous evaluation noted: cortisol level low - cosyntropin resulted in a cortisol level [address] of the head + chest x-ray are negative for masses/tumors no history of cancer off PPI likely due to the renal insufficiency and volume overload consider switching all IVPB meds to normal saline carrier fluid if sodium declines further follow trend of sodium (5) Anemia: Qualifiers: Anemia type: other cause Other causes of anemia: chronic disease, other Qualified Code(s): D63.8 - Anemia in other chronic diseases classified elsewhere Code(s): D64.9 - Anemia, unspecified Status: Acute Assessment and Plan: due to ZORAN, possible new mild CKD, and acute illness currently and from last hospitalization follow trend of H/H PRBC transfusion per protocol on empiric Epogen therapy (6) C. difficile diarrhea: Code(s): A04.72 - Enterocolitis due to Clostridium difficile, not specified as recurrent Status: Acute Assessment and Plan: completed course of oral vancomycin and IV flagyl supportive therapy Will continue to follow Subjective Date/time seen: 07/21/22 12:01 Seems to be doing reasonably well at the time of my visit; sitting up in chair eating lunch in no apparent distress; breathing/respiratory status seems stable in not improving; renal function tolerating diuresis with IV bumex; no other issues/event overnight or earlier this AM. Exam Narrative: General: ill appearing male laying in bed in NAD Heart: normal S1 and S2; no rub Lungs: coarse and decreased at bases Abdomen: soft, nontender, nondistended, positive bowel sounds Extremities: no cyanosis or clubbing; 1+ edema Skin: warm and dry Objective Data Vital Signs Vital Signs: Vital Signs Temp Pulse Resp BP Pulse Ox O2 Del Method O2 Flow Rate 07/21/22 12:00 97 F L 72 25 H 107/57 L 100 07/21/22 08:00 98 Nasal Cannula 2 07/21/22 09:37 80 18 07/21/22 09:18 98 Nasal Cannula 2 07/21/22 09:17 88 20 07/21/22 08:00 97.7 F 89 20 110/69 99
--- NOTE | 2022-07-21 12:01 | P.PNNP_ITS ---
Progress Note: A&P Assessment and Plan (1) ZORAN (acute kidney injury): Code(s): N17.9 - Acute kidney failure, unspecified Status: Acute Assessment and Plan: * suffered ZORAN/ARF on last hospitalization due to sepsis * creatinine seemed to stabilized to 1.2mg/dl * creatinine up a bit in response to diuresis * previous evaluation noted: * renal ultrasound normal * urine electrolytes are pre-renal * CPK normal * suspect still may need chronic diuretic therapy * IV albumin chased by IV bumex x 6 doses (completed 07/17/22) * resumed on IV bumex yesterday (07/20/22) * this may be a situation where we have to accept a higher creatinine to achieve relative euvolemia.... * follow I/Os (2) Sepsis: Qualifiers: Sepsis acute organ dysfunction status: with acute organ dysfunction Sepsis type: sepsis due to unspecified organism Severe sepsis acute organ dysfunction type: acute renal failure Severe sepsis shock status: without septic shock Code(s): A41.9 - Sepsis, unspecified organism Status: Acute Assessment and Plan: * as evidence by lactic acidosis, fever, tachycardia, tachypnea, and confusion * blood cultures with MRSA and urine culture with Pseudomonas * on IV antibiotics * follow repeat cultures * history of C. diff colitis but no mention of this of CT imaging (3) Pleural effusion: Code(s): J90 - Pleural effusion, not elsewhere classified Status: Acute Assessment and Plan: * likely to third spacing from hypoalbuminemia from recent acute illness/hospitalization * s/p IV albumin chased by IV bumex (last dose 07/17/22) * s/p thoracentesis (on 07/10/22) * diuresis as tolerated * follow repeat CXR (4) Hyponatremia: Code(s): E87.1 - Hypo-osmolality and hyponatremia Status: Chronic Assessment and Plan: * chronic issue * previous evaluation noted: * cortisol level low - cosyntropin resulted in a cortisol level 31 * TSH is normal * CT of the head + chest x-ray are negative for masses/tumors * no history of cancer * off PPI * likely due to the renal insufficiency and volume overload * consider switching all IVPB meds to normal saline carrier fluid if sodium declines further * follow trend of sodium (5) Anemia: Qualifiers: Anemia type: other cause Other causes of anemia: chronic disease, other Qualified Code(s): D63.8 - Anemia in other chronic diseases classified elsewhere Code(s): D64.9 - Anemia, unspecified Status: Acute Assessment and Plan: * due to ZORAN, possible new mild CKD, and acute illness currently and from last hospitalization * follow trend of H/H * PRBC transfusion per protocol * on empiric Epogen therapy (6) C. difficile diarrhea: Code(s): A04.72 - Enterocolitis due to Clostridium difficile, not specified as recurrent Status: Acute Assessment and Plan: * completed course of oral vancomycin and IV flagyl * supportive therapy Will continue to follow Subjective Date/time seen: 07/21/22 12:01 Seems to be doing reasonably well at the time of my visit; sitting up in chair eating lunch in no apparent distress; breathing/respiratory status seems stable in not improving; renal function tolerating diuresis with IV bumex; no other issues/event overnight or earlier this AM. Exam Narrative: General: ill appearing male laying in bed in NAD Heart: normal S1 and S2; no rub Lungs: coarse and decreased
--- NOTE | 2022-07-21 13:29 | PCOTNOTE ---
Attempted to see patient this PM as requested. Patient's [employer] in room and reports patient is getting PICC line placed in next few minutes and has to go back to bed at this time. Patient assisted with transfer back to bed with CGA x1 with assist for managing tubes and lines. Patient not seen this PM for OT. Will continue OT plan of care.
--- NOTE | 2022-07-21 14:53 | PM.IMPN ---
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, malnutrition, c dif colitis, chronic collagenous colitis, FOBT pending, previously positive at last admission Complicated by malnutrition, FOBT pending, GI consult pending FOBT was positive 06/25 when patient also required a transfusion, hgb stable after that until this morning 07/10: acute drop in hgb to 6.2 from 8.5 at admission, 7.1 yesterday, 2 units pRBC ordered and being given, this also happened during the last admission, GI was consulted, no workup deemed necessary, hgb stable after transfusion last time (06/25/22), blood loss was thought to be secondary to occult bleeding from chronic collagenous colitis complicated by C diff colitis with a fecal occult blood test positive on last admission, repeat fecal occult negative 07/11: Hemoglobin stable at 7.8, was 7.3 after transfusion yesterday, continue to monitor 07/12: Hemoglobin stable at 7.9 today. Eliquis on hold. GI following. Recent C diff colitis. Transfusion of 2 units of PRBC on 07/10/2022. History of chronic collagenous colitis. FOBT negative this admission. Will resume Eliquis 07/16: hemoglobin down to 6.9. Will transfuse 1 unit of PRBC no signs of bleeding present currently will continue to monitor 07/17: H&H is stable. Status post transfusion of 1 unit of PRBC on 07/16/2022. No active signs of bleeding 07/21/2022 interval history: Patient on BiPAP throughout the day as well as at night. he feels a little better today. Still has significant cough with wheezing. No chest pain, patient has a blood culture is positive Pseudomonas patient is being treated with Cefepime, and vancomycin, will require 21 days of IV abx there was a concern for C diff which is negative, patient also had anemia patient his hemoglobin dropped 6.2 from 8.5 upon admission patient received 2 units of pack RBC, patient FOBT was positive GI consulted and no workup is recommended, hgb is trending down will continue to monitor. patient has no new complaints (2) Sepsis: Qualifiers: Sepsis acute organ dysfunction status: with acute organ dysfunction Sepsis type: sepsis due to unspecified organism Severe sepsis acute organ dysfunction type: acute renal failure Severe sepsis shock status: without septic shock Code(s): A41.9 - Sepsis, unspecified organism Status: Acute Assessment and Plan: Continue IV Flagyl and oral vancomycin for C diff colitis, cefepime for Pseudomonas UTI, IV vancomycin for MRSA bacteremia, replete blood cultures from 07/11 no growth to date IV vanc, h/o MRSA bacteremia from last admission that was treated with daptomycin for approximately 14 days, possibly incompletely treated? Blood cultures positive for MRSA again here, source is most likely his central line catheter from the last admission, YOLIS done at last admission was negative for vegetation, once blood cultures are negative, at that point would place PICC line and treat for 21 days from negative blood cultures with IV antibiotics due to recurrence and underlying immunocompromised state, would discuss with ID pharmacist best IV medication for this patient, will continue IV vancomycin for now Diarrhea appears to be at baseline, previously on immodium + budesonide for collagenous colitis, held for now due to C diff infection, repeat C diff test pending Thoracentesis performed 07/10: Cytology with mesothelial cells histiocytes and lymphocytes Urine culture came back positive for pseudomonas, cont cefepime, would complete a 7 day course vancomycin IV. MRSA bacteremia recurrent. Possibly incomplete treatment. Source most likely central line catheter
[2022-07-21] MEDS: guaiFENesin 200 MG/10 ML UDC 400 MG PO (17:15)
[2022-07-21] MEDS: ATORVASTATIN 10 MG TABLET PO (21:10)
[2022-07-21] MEDS: TAMSULOSIN HCL 0.4 MG CAPSULE PO (21:11)
[2022-07-21] MEDS: ZOLPIDEM TARTRATE (*CRX) 5 MG TABLET 10 MG PO (23:41)
[2022-07-22] VITALS (31 sets, daily range): BP systolic 101–130; BP diastolic 47–79; PULSE 63–89; RESP 14–24; TEMP 35.9–37; O2SAT 93–100
[2022-07-22] MEDS: ALBUTEROL SULFATE NEB 2.5 MG/3 ML INH INHALATION ×4 (01:46→21:59)
[2022-07-22] MEDS: IPRATROPIUM BR 0.02% INH SOLN 0.5 MG/2.5 ML VIAL INHALATION ×4 (01:46→22:00)
[2022-07-22] MEDS: CENTRAL LINE FLUSH 20 ML IV PUSH ×3 (03:59→20:30)
[2022-07-22 04:06] LABS: Immature Platelet Fraction Pct 6.2 % (0.9-11.2); Mean Corpuscular HGB Conc 32.5 g/dl (32-36); Mean Corpuscular Volume 101.5 fl (80-100); Mean Platelet Volume 10.1 fl (7.4-10.4); Platelet Count Result 77 k/mm3 (150-375); Red Cell Distribution Width 17.4 % (11.5-14.5); White Blood Count 2.5 K/mm3 (4.5-10.0)
[2022-07-22 04:11] LABS: Hematocrit 20.3 % (42.0-52.0); Hemoglobin 6.6 g/dL (14.0-18.0)
[2022-07-22 04:15] LABS: Anion Gap 5 mmol/L (8-16); Blood Urea Nitrogen 47 mg/dL (9-20); Carbon Dioxide 33 mmol/L (22-30); Chloride 93 mmol/L (98-107); Estimated CRCL calculation 36 ml/min; Estimated Glomerular Filt Rate 53; Glucose 112 mg/dL (65-110); Magnesium 1.7 mg/dL (1.6-2.3); Potassium 3.7 mmol/L (3.4-5.0); Sodium 131 mmol/L (137-145)
[2022-07-22] MEDS: LEVOTHYROXINE SODIUM 50 MCG TABLET PO (06:36)
[2022-07-22] MEDS: CENTRAL LINE FLUSH 10 ML IV PUSH ×3 (06:36→22:42)
[2022-07-22] MEDS: methylPREDNISolone SOD SUCC 40 MG VIAL IV PUSH ×3 (06:37→22:42)
[2022-07-22] MEDS: CALCIUM CARBONATE (OSCAL) 500 MG TABLET PO (08:14)
[2022-07-22] MEDS: METOPROLOL SUCCINATE EXT REL 50 MG TABCR PO ×2 (08:14→20:29)
[2022-07-22] MEDS: MAGNESIUM OXIDE 400 MG TABLET PO (08:14)
[2022-07-22] MEDS: SACCHAROMYCES BOULARDII 250 MG CAPSULE PO ×3 (08:14→17:17)
[2022-07-22] MEDS: FAMOTIDINE 20 MG TABLET PO ×2 (08:15→20:29)
[2022-07-22] MEDS: PANTOPRAZOLE SOD SESQUIHYDRATE 20 MG TAB PO (08:15)
[2022-07-22] MEDS: BENZONATATE 100 MG CAPSULE 200 MG PO ×3 (08:15→17:17)
[2022-07-22] MEDS: BUMETANIDE INJ 1 MG/4 ML VIAL 2 MG IV PUSH ×2 (08:15→17:17)
[2022-07-22] MEDS: APIXABAN 2.5 MG TABLET PO ×2 (08:16→20:28)
[2022-07-22] MEDS: MUPIROCIN 2% OINT 22 GM TUBE 1 APPLIC EACH NARE ×2 (08:17→20:31)
[2022-07-22] MEDS: BUDESONIDE RESPULE NEB 0.5 MG/2 ML AMP INHALATION ×2 (08:42→22:00)
--- NOTE | 2022-07-22 10:42 | WPDGIPROGNO ---
Progress Note: A&P Assessment and Plan (1) Anemia: Qualifiers: Anemia type: other cause Other causes of anemia: chronic disease, other Qualified Code(s): D63.8 - Anemia in other chronic diseases classified elsewhere Code(s): D64.9 - Anemia, unspecified Status: Acute Assessment and Plan: he has dropped his blood counts twice while he was here requiring transfusion. There is however no evidence of gastrointestinal bleeding. Stool Hemoccult done when he 1st dropped his blood counts about 10 days ago was negative. I will order another 1 but given the fact he is anticoagulated is very likely to be positive. Therefore, unless he shows overt evidence of gastrointestinal bleeding I do not see a need for endoscopy. He had a normal colonoscopy less than 1 year ago, there further is no concern for colonic malignancy. (2) Pancytopenia: Code(s): D61.818 - Other pancytopenia Status: Acute Assessment and Plan: Is possible that his anemia is actually part of a broader hematologic issue which I do not think has been investigated to this point. (3) Atrial fibrillation: Code(s): I48.91 - Unspecified atrial fibrillation Status: Acute Assessment and Plan: Consequently, he is chronically anticoagulated on Eliquis. (4) C. difficile colitis: Code(s): A04.72 - Enterocolitis due to Clostridium difficile, not specified as recurrent Status: Acute Assessment and Plan: He was hospitalized for this last month and has recovered. No longer having diarrhea (5) Chronic anticoagulation: Code(s): Z79.01 - custodial (current) use of anticoagulants Status: Acute Plan will obtain another Hemoccult but I do not know that there is any point in endoscopy unless he shows evidence of actual bleed. He has multiple possible reasons for anemia including some renal insufficiency, possible hemolysis due to aortic valve, bone marrow issues,etc. I would consider investigation for his pancytopenia. Subjective Date/time seen: 07/22/22 10:42 Mr. Nadia carmona states that he is feeling good today. He states that he is slowly getting a better appetite. He denies any abdominal pain. He states that he has not seen any blood in his stools. They have not been black or dark. About 1 year ago he had seen Dr. Sanchez in his office because of suspected melena and loose stools. He had an MR ED that showed possible colitis in the sigmoid colon. He subsequently had a colonoscop y by which was entirely normal. He did have a positive stool Hemoccult when he was hospitalized a month ago with C diff colitis. The most recent stool Hemoccult last week was negative. He is anticoagulated because of atrial fibrillation. He is no longer having diarrhea. Review of Systems Review of Systems: All systems reviewed & are unremarkable except as noted in HPI and below Exam Const: General: alert Orientation/consciousness: patient oriented x3 Resp: Auscultation: clear to auscultation bilaterally Cardio: Rhythm: regular rhythm GI: GI Palp: Yes Soft to palpation, No Tenderness to palpation present (GI) and Yes No hepatosplenomegaly present Auscultation: normal bowel sounds Skin: General skin exam: no jaundice and no petechiae Neuro: General: patient oriented x3 Objective Data Vital Signs Vital Signs: Vital Signs - 24 hr 07/21/22 12:00 07/21/22 13:24 07/21/22 13:24 Temperature 36.1 C L Pulse Rate 72 72 77 Respiratory Rate 25 H 23 H 23 H Blood Pressure 107/57 L Pulse Oximetry 100 100 Oxygen Delivery BiPAP Oxygen Flow Rate Fraction of Inspired Oxygen 07/21/22 13:53 07/21/22 15:07 07/21/22 12:00 Temperature Pulse Rate 77 83 72 Respiratory Rate 22 H Blood Pressure Pulse Oximetry 94 Oxygen Delivery Room Air Oxygen Flow Rate Fraction of Inspired Oxygen 07/21/22 14:00 07/21/22 16:00 07/21/22 16:00 Temperature 36.
[2022-07-22] MEDS: EPOETIN ALFA-EPBX 10,000 UNITS/ML VIAL 10000 UNITS SUB-Q (11:34)
[2022-07-22] MEDS: SODIUM CHLORIDE 0.9% IV 250 ML 30 ML IV CONT (11:35)
[2022-07-22] MEDS: guaiFENesin 200 MG/10 ML UDC 400 MG PO ×2 (11:44→18:19)
[2022-07-22] MEDS: TUBING, BLOOD PLUM PUMP TUBING 1 EACH XX (11:47)
--- NOTE | 2022-07-22 11:59 | P.PNNP_ITS ---
Progress Note: A&P Assessment and Plan (1) ZORAN (acute kidney injury): Code(s): N17.9 - Acute kidney failure, unspecified Status: Acute Assessment and Plan: * suffered ZORAN/ARF on last hospitalization due to sepsis * his creatinine improved by discharge. * On admission his creatinine was 1.2 then angelica to 1.5 with diuresis and now is back to 1.3. * previous evaluation noted: * renal ultrasound normal * urine electrolytes are pre-renal * CPK normal * Will continue to follow as we diurese (2) Sepsis: Qualifiers: Sepsis acute organ dysfunction status: with acute organ dysfunction Sepsis type: sepsis due to unspecified organism Severe sepsis acute organ dysfunction type: acute renal failure Severe sepsis shock status: without septic shock Code(s): A41.9 - Sepsis, unspecified organism Status: Acute Assessment and Plan: * as evidence by lactic acidosis, fever, tachycardia, tachypnea, and confusion * blood cultures with MRSA and urine culture with Pseudomonas * repeat sputum culture shows yeast. Repeat urine culture was negative. Repeat blood cultures negative. * on Vancomycin plus cefepime * follow repeat cultures * history of C. diff colitis but no mention of this of CT imaging (3) Pleural effusion: Code(s): J90 - Pleural effusion, not elsewhere classified Status: Acute Assessment and Plan: * likely to third spacing from hypoalbuminemia from recent acute illness/hospitalization * s/p IV albumin chased by IV bumex (last dose 07/17/22) * s/p thoracentesis (on 07/10/22) * diuresis underway. Yesterday he made almost a gallon of urine (4) Hyponatremia: Code(s): E87.1 - Hypo-osmolality and hyponatremia Status: Chronic Assessment and Plan: * chronic issue * previous evaluation noted: * cortisol level low - cosyntropin resulted in a cortisol level 31 * TSH is normal * CT of the head + chest x-ray are negative for masses/tumors * no history of cancer * off PPI * likely due to the renal insufficiency and volume overload * sodium level doing pretty well above 130 now. (5) Anemia: Qualifiers: Anemia type: other cause Other causes of anemia: chronic disease, other Qualified Code(s): D63.8 - Anemia in other chronic diseases classified elsewhere Code(s): D64.9 - Anemia, unspecified Status: Acute Assessment and Plan: * due to ZORAN, possible new mild CKD, and acute illness currently and from last hospitalization * follow trend of H/H * PRBC transfusion per protocol * on empiric Epogen therapy * Check a reticulocyte count (6) C. difficile diarrhea: Code(s): A04.72 - Enterocolitis due to Clostridium difficile, not specified as recurrent Status: Acute Assessment and Plan: * completed course of oral vancomycin and IV flagyl * supportive therapy Subjective Date/time seen: 07/22/22 11:59 Interval history: Naga is feeling a bit better today. He is on a BiPAP right now however he can occasionally go without it. Still some shortness of breath. Physical therapy is in the room about to start working with him. Exam Narrative: General: ill appearing male laying in bed in NAD Heart: normal S1 and S2; no rub Lungs: coarse and decreased at bases Abdomen: soft, nontender, nondistended, positive bowel sounds Extremities: no cyanosis or clubbing; 1+ edema Skin: No rash Obj
--- NOTE | 2022-07-22 11:59 | PM.PNNEP ---
Progress Note: A&P Assessment and Plan (1) ZORAN (acute kidney injury): Code(s): N17.9 - Acute kidney failure, unspecified Status: Acute Assessment and Plan: suffered ZORAN/ARF on last hospitalization due to sepsis his creatinine improved by discharge. On admission his creatinine was 1.2 then angelica to 1.5 with diuresis and now is back to 1.3. previous evaluation noted: renal ultrasound normal urine electrolytes are pre-renal CPK normal Will continue to follow as we diurese (2) Sepsis: Qualifiers: Sepsis acute organ dysfunction status: with acute organ dysfunction Sepsis type: sepsis due to unspecified organism Severe sepsis acute organ dysfunction type: acute renal failure Severe sepsis shock status: without septic shock Code(s): A41.9 - Sepsis, unspecified organism Status: Acute Assessment and Plan: as evidence by lactic acidosis, fever, tachycardia, tachypnea, and confusion blood cultures with MRSA and urine culture with Pseudomonas repeat sputum culture shows yeast. Repeat urine culture was negative. Repeat blood cultures negative. on Vancomycin plus cefepime follow repeat cultures history of C. diff colitis but no mention of this of CT imaging (3) Pleural effusion: Code(s): J90 - Pleural effusion, not elsewhere classified Status: Acute Assessment and Plan: likely to third spacing from hypoalbuminemia from recent acute illness/hospitalization s/p IV albumin chased by IV bumex (last dose 07/17/22) s/p thoracentesis (on 07/10/22) diuresis underway. Yesterday he made almost a gallon of urine (4) Hyponatremia: Code(s): E87.1 - Hypo-osmolality and hyponatremia Status: Chronic Assessment and Plan: chronic issue previous evaluation noted: cortisol level low - cosyntropin resulted in a cortisol level [address] of the head + chest x-ray are negative for masses/tumors no history of cancer off PPI likely due to the renal insufficiency and volume overload sodium level doing pretty well above 130 now. (5) Anemia: Qualifiers: Anemia type: other cause Other causes of anemia: chronic disease, other Qualified Code(s): D63.8 - Anemia in other chronic diseases classified elsewhere Code(s): D64.9 - Anemia, unspecified Status: Acute Assessment and Plan: due to ZORAN, possible new mild CKD, and acute illness currently and from last hospitalization follow trend of H/H PRBC transfusion per protocol on empiric Epogen therapy Check a reticulocyte count (6) C. difficile diarrhea: Code(s): A04.72 - Enterocolitis due to Clostridium difficile, not specified as recurrent Status: Acute Assessment and Plan: completed course of oral vancomycin and IV flagyl supportive therapy Subjective Date/time seen: 07/22/22 11:59 Interval history: Naga is feeling a bit better today. He is on a BiPAP right now however he can occasionally go without it. Still some shortness of breath. Physical therapy is in the room about to start working with him. Exam Narrative: General: ill appearing male laying in bed in NAD Heart: normal S1 and S2; no rub Lungs: coarse and decreased at bases Abdomen: soft, nontender, nondistended, positive bowel sounds Extremities: no cyanosis or clubbing; 1+ edema Skin: No rash Objective Data Vital Signs Vital Signs: Vital Signs - 24 hr 07/21/22 12:00 07/21/22 13:24 07/21/22 13:24 Temperature 36.1 C L Pulse Rate 72 72 77 Respiratory Rate 25 H 23 H 23 H Blood Pressure 107/57 L Pulse Oximetry 100 100 Oxygen Delivery BiPAP Oxygen Flow Rate Fraction of Inspired Oxygen 07/21/22 13:53 07/21/22 15:07 07/21/22 12:00 Temperature Pulse Rate 77 83 72 Respiratory Rate 22 H Blood Pressure Pulse Oximetry 94 Oxygen Delivery Room Air Oxygen Flow Rat
[2022-07-22 13:02] LABS: Iron 147 ug/dL (49-181)
[2022-07-22 13:12] LABS: Percent Iron Saturation 69 % (20-50)
--- NOTE | 2022-07-22 14:35 | PM.IMPN ---
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, malnutrition, c dif colitis, chronic collagenous colitis, FOBT pending, previously positive at last admission Complicated by malnutrition, FOBT pending, GI consult pending FOBT was positive 06/25 when patient also required a transfusion, hgb stable after that until this morning 07/10: acute drop in hgb to 6.2 from 8.5 at admission, 7.1 yesterday, 2 units pRBC ordered and being given, this also happened during the last admission, GI was consulted, no workup deemed necessary, hgb stable after transfusion last time (06/25/22), blood loss was thought to be secondary to occult bleeding from chronic collagenous colitis complicated by C diff colitis with a fecal occult blood test positive on last admission, repeat fecal occult negative 07/11: Hemoglobin stable at 7.8, was 7.3 after transfusion yesterday, continue to monitor 07/12: Hemoglobin stable at 7.9 today. Eliquis on hold. GI following. Recent C diff colitis. Transfusion of 2 units of PRBC on 07/10/2022. History of chronic collagenous colitis. FOBT negative this admission. Will resume Eliquis 07/16: hemoglobin down to 6.9. Will transfuse 1 unit of PRBC no signs of bleeding present currently will continue to monitor 07/17: H&H is stable. Status post transfusion of 1 unit of PRBC on 07/16/2022. No active signs of bleeding 07/22/2022 interval history: Patient on BiPAP throughout the day as well as at night. he feels a little better today. Still has significant cough with wheezing. No chest pain, patient has a blood culture is positive Pseudomonas patient is being treated with Cefepime, and vancomycin, will require 21 days of IV abx there was a concern for C diff which is negative, patient also had anemia patient his hemoglobin dropped 6.2 from 8.5 upon admission patient received 2 units of pack RBC, patient FOBT was positive, today patient hgb dropped to 6.6 there is no obvious source of bleeding GI consulted and no workup is recommended, will conservatively monitor, he does has risk of bleeding due to anticoagulation, GI does not suspect colonic malignancy as patient had normal colonoscopy less than 1 yr ago, will continue to monitor. patient has no new complaints (2) Sepsis: Qualifiers: Sepsis acute organ dysfunction status: with acute organ dysfunction Sepsis type: sepsis due to unspecified organism Severe sepsis acute organ dysfunction type: acute renal failure Severe sepsis shock status: without septic shock Code(s): A41.9 - Sepsis, unspecified organism Status: Acute Assessment and Plan: Continue IV Flagyl and oral vancomycin for C diff colitis, cefepime for Pseudomonas UTI, IV vancomycin for MRSA bacteremia, replete blood cultures from 07/11 no growth to date IV vanc, h/o MRSA bacteremia from last admission that was treated with daptomycin for approximately 14 days, possibly incompletely treated? Blood cultures positive for MRSA again here, source is most likely his central line catheter from the last admission, YOLIS done at last admission was negative for vegetation, once blood cultures are negative, at that point would place PICC line and treat for 21 days from negative blood cultures with IV antibiotics due to recurrence and underlying immunocompromised state, would discuss with ID pharmacist best IV medication for this patient, will continue IV vancomycin for now Diarrhea appears to be at baseline, previously on immodium + budesonide for collagenous colitis, held for now due to C diff infection, repeat C diff test pending Thoracentesis performed 07/10: Cytology with mesothelial cells histiocytes and ly
[2022-07-22] MEDS: ATORVASTATIN 10 MG TABLET PO (20:28)
[2022-07-22] MEDS: TAMSULOSIN HCL 0.4 MG CAPSULE PO (20:30)
[2022-07-22 20:42] LABS: Hematocrit 25.5 % (42.0-52.0); Hemoglobin 8.4 g/dL (14.0-18.0)
[2022-07-22] MEDS: ZOLPIDEM TARTRATE (*CRX) 5 MG TABLET 10 MG PO (22:43)
[2022-07-23] VITALS (18 sets, daily range): BP systolic 111–128; BP diastolic 65–72; PULSE 69–85; RESP 15–20; TEMP 35.7–36.8; O2SAT 91–100
--- NOTE | 2022-07-23 02:11 | PC.NURSE ---
This patient, Naga De Leon, was received from [[facility] ] on 07/23/22 at 0211. Patient/family oriented to unit policies and routines
--- NOTE | 2022-07-23 02:18 | PC.NURSE ---
This patient, Naga De Leon, was transferred to room 304 on 07/23/22 at 0208. Personal belongings sent with patient. Report given to LORELEI Lazcano. Appropriate documentation sent with patient.
[2022-07-23] MEDS: ALBUTEROL SULFATE NEB 2.5 MG/3 ML INH INHALATION ×4 (02:49→20:13)
[2022-07-23] MEDS: IPRATROPIUM BR 0.02% INH SOLN 0.5 MG/2.5 ML VIAL INHALATION ×4 (02:50→20:12)
[2022-07-23] MEDS: CENTRAL LINE FLUSH 10 ML IV PUSH ×3 (06:45→22:23)
[2022-07-23] MEDS: methylPREDNISolone SOD SUCC 40 MG VIAL IV PUSH ×3 (06:45→22:21)
[2022-07-23] MEDS: LEVOTHYROXINE SODIUM 50 MCG TABLET PO (06:45)
[2022-07-23 07:01] LABS: Hematocrit 26.9 % (42.0-52.0); Hemoglobin 8.9 g/dL (14.0-18.0); Immature Platelet Fraction Pct 8.5 % (0.9-11.2); Immature Reticulocyte Fraction 11.2 % (3.0-15.9); Mean Corpuscular HGB Conc 33.1 g/dl (32-36); Mean Corpuscular Hemoglobin 32.8 pg (26-34); Mean Corpuscular Volume 99.3 fl (80-100); Mean Platelet Volume 11.2 fl (7.4-10.4); Platelet Count Result 88 k/mm3 (150-375); Red Blood Count 2.71 M/mm3 (4.6-6.20); Red Cell Distribution Width 17.4 % (11.5-14.5); Reticulocyte Hemoglobin Conten 37.9 pg (28.2-35.7); Reticulocyte Percent 1.15 % (0.7-4.3); Reticulocytes Absolute 0.03 B/L (32.2-175.7)
[2022-07-23 07:08] LABS: Albumin Level 3.2 g/dL (3.5-5.1); Anion Gap 5 mmol/L (8-16); Blood Urea Nitrogen 52 mg/dL (9-20); Calcium 8.4 mg/dL (8.4-10.2); Carbon Dioxide 33 mmol/L (22-30); Chloride 93 mmol/L (98-107); Estimated CRCL calculation 36 ml/min; Estimated Glomerular Filt Rate 53; Glucose 109 mg/dL (65-110); Magnesium 1.8 mg/dL (1.6-2.3); Phosphorus 3.5 mg/dL (2.5-4.5); Potassium 3.6 mmol/L (3.4-5.0); Sodium 131 mmol/L (137-145)
[2022-07-23] MEDS: BENZONATATE 100 MG CAPSULE 200 MG PO ×3 (09:03→17:34)
[2022-07-23] MEDS: METOPROLOL SUCCINATE EXT REL 50 MG TABCR PO ×2 (09:03→22:22)
[2022-07-23] MEDS: CALCIUM CARBONATE (OSCAL) 500 MG TABLET PO (09:03)
[2022-07-23] MEDS: SACCHAROMYCES BOULARDII 250 MG CAPSULE PO ×3 (09:03→17:34)
[2022-07-23] MEDS: MAGNESIUM OXIDE 400 MG TABLET PO (09:04)
[2022-07-23] MEDS: APIXABAN 2.5 MG TABLET PO (09:04)
[2022-07-23] MEDS: FAMOTIDINE 20 MG TABLET PO ×2 (09:04→22:22)
[2022-07-23] MEDS: PANTOPRAZOLE SOD SESQUIHYDRATE 20 MG TAB PO (09:04)
[2022-07-23] MEDS: BUMETANIDE INJ 1 MG/4 ML VIAL 2 MG IV PUSH ×2 (09:07→17:34)
[2022-07-23] MEDS: MUPIROCIN 2% OINT 22 GM TUBE 1 APPLIC EACH NARE (09:09)
[2022-07-23] MEDS: BUDESONIDE RESPULE NEB 0.5 MG/2 ML AMP INHALATION ×2 (09:43→20:13)
[2022-07-23] MEDS: metOLazone 5 MG TABLET PO (10:12)
--- NOTE | 2022-07-23 10:40 | P.PNNP_ITS ---
Progress Note: A&P Assessment and Plan (1) ZORAN (acute kidney injury): Code(s): N17.9 - Acute kidney failure, unspecified Status: Acute Assessment and Plan: * suffered ZORAN/ARF on last hospitalization due to sepsis * his creatinine improved by discharge. * On admission his creatinine was 1.2 then angelica to 1.5 with diuresis and now is back to 1.3. * previous evaluation noted: * renal ultrasound normal * urine electrolytes are pre-renal * CPK normal * creatinine stable at 1.3. (2) Sepsis: Qualifiers: Sepsis acute organ dysfunction status: with acute organ dysfunction Sepsis type: sepsis due to unspecified organism Severe sepsis acute organ dysfunction type: acute renal failure Severe sepsis shock status: without septic shock Code(s): A41.9 - Sepsis, unspecified organism Status: Acute Assessment and Plan: * as evidence by lactic acidosis, fever, tachycardia, tachypnea, and confusion * blood cultures with MRSA and urine culture with Pseudomonas * repeat sputum culture shows yeast. Repeat urine culture was negative. Repeat blood cultures negative. * on Vancomycin plus cefepime * follow repeat cultures * history of C. diff colitis but no mention of this of CT imaging (3) Pleural effusion: Code(s): J90 - Pleural effusion, not elsewhere classified Status: Acute Assessment and Plan: * likely to third spacing from hypoalbuminemia from recent acute illness/hospitalization * Albumin level okay now. * Making some urine but not a lot. Will add metolazone. * He has an allergy to sulfa however it was mental status changes due to Bactrim not a rash. (4) Hyponatremia: Code(s): E87.1 - Hypo-osmolality and hyponatremia Status: Chronic Assessment and Plan: * chronic issue * previous evaluation noted: * cortisol level low - cosyntropin resulted in a cortisol level 31 * TSH is normal * CT of the head + chest x-ray are negative for masses/tumors * no history of cancer * off PPI * likely due to the renal insufficiency , diuretics, and volume overload * sodium level doing pretty well above 130 now. will watch this on the metolazone. (5) Anemia: Qualifiers: Anemia type: other cause Other causes of anemia: chronic disease, other Qualified Code(s): D63.8 - Anemia in other chronic diseases classified elsewhere Code(s): D64.9 - Anemia, unspecified Status: Acute Assessment and Plan: * due to ZORAN, possible new mild CKD, and acute illness currently and from last hospitalization * follow trend of H/H * PRBC transfusion per protocol * on empiric Epogen therapy * Retake count only 1.15%. * Will increase the Epogen (6) C. difficile diarrhea: Code(s): A04.72 - Enterocolitis due to Clostridium difficile, not specified as recurrent Status: Acute Assessment and Plan: * completed course of oral vancomycin and IV flagyl * supportive therapy Subjective Date/time seen: 07/23/22 10:40 Interval history: Naga is feeling a bit better today. He uses the BiPap only at night. He is on no oxygen during the day. Exam Narrative: General: ill appearing male laying in bed in NAD Heart: normal S1 and S2; no rub Lungs: coarse and decreased at bases Abdomen: soft, nontender, nondistended, positive bowel sounds Extremities: 1+ edema Skin: No rash Or subcu nodules Objective Data
--- NOTE | 2022-07-23 10:40 | PM.PNNEP ---
Progress Note: A&P Assessment and Plan (1) ZORAN (acute kidney injury): Code(s): N17.9 - Acute kidney failure, unspecified Status: Acute Assessment and Plan: suffered ZORAN/ARF on last hospitalization due to sepsis his creatinine improved by discharge. On admission his creatinine was 1.2 then angelica to 1.5 with diuresis and now is back to 1.3. previous evaluation noted: renal ultrasound normal urine electrolytes are pre-renal CPK normal creatinine stable at 1.3. (2) Sepsis: Qualifiers: Sepsis acute organ dysfunction status: with acute organ dysfunction Sepsis type: sepsis due to unspecified organism Severe sepsis acute organ dysfunction type: acute renal failure Severe sepsis shock status: without septic shock Code(s): A41.9 - Sepsis, unspecified organism Status: Acute Assessment and Plan: as evidence by lactic acidosis, fever, tachycardia, tachypnea, and confusion blood cultures with MRSA and urine culture with Pseudomonas repeat sputum culture shows yeast. Repeat urine culture was negative. Repeat blood cultures negative. on Vancomycin plus cefepime follow repeat cultures history of C. diff colitis but no mention of this of CT imaging (3) Pleural effusion: Code(s): J90 - Pleural effusion, not elsewhere classified Status: Acute Assessment and Plan: likely to third spacing from hypoalbuminemia from recent acute illness/hospitalization Albumin level okay now. Making some urine but not a lot. Will add metolazone. He has an allergy to sulfa however it was mental status changes due to Bactrim not a rash. (4) Hyponatremia: Code(s): E87.1 - Hypo-osmolality and hyponatremia Status: Chronic Assessment and Plan: chronic issue previous evaluation noted: cortisol level low - cosyntropin resulted in a cortisol level [address] of the head + chest x-ray are negative for masses/tumors no history of cancer off PPI likely due to the renal insufficiency , diuretics, and volume overload sodium level doing pretty well above 130 now. will watch this on the metolazone. (5) Anemia: Qualifiers: Anemia type: other cause Other causes of anemia: chronic disease, other Qualified Code(s): D63.8 - Anemia in other chronic diseases classified elsewhere Code(s): D64.9 - Anemia, unspecified Status: Acute Assessment and Plan: due to ZORAN, possible new mild CKD, and acute illness currently and from last hospitalization follow trend of H/H PRBC transfusion per protocol on empiric Epogen therapy Retake count only 1.15%. Will increase the Epogen (6) C. difficile diarrhea: Code(s): A04.72 - Enterocolitis due to Clostridium difficile, not specified as recurrent Status: Acute Assessment and Plan: completed course of oral vancomycin and IV flagyl supportive therapy Subjective Date/time seen: 07/23/22 10:40 Interval history: Naga is feeling a bit better today. He uses the BiPap only at night. He is on no oxygen during the day. Exam Narrative: General: ill appearing male laying in bed in NAD Heart: normal S1 and S2; no rub Lungs: coarse and decreased at bases Abdomen: soft, nontender, nondistended, positive bowel sounds Extremities: 1+ edema Skin: No rash Or subcu nodules Objective Data Vital Signs Vital Signs: Vital Signs - 24 hr 07/22/22 11:27 07/22/22 11:43 07/22/22 12:43 Temperature 36.4 C L 35.9 C L 36.2 C L Pulse Rate 73 79 77 Respiratory Rate 16 22 H 22 H Blood Pressure 118/62 118/68 101/47 L Pulse Oximetry 95 96 95 Oxygen Delivery Fraction of Inspired Oxygen 07/22/22 12:00 07/22/22 13:44 07/22/22 14:04 Temperature 35.9 C L 36.4 C Pulse Rate 80 78 Respiratory Rate 14 20 18 Blood Pressure 122/66 111/55 L Pulse Oximetry 99 96 Oxygen Delivery Fraction of Inspi
--- NOTE | 2022-07-23 12:09 | PM.IMPN ---
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, malnutrition, c dif colitis, chronic collagenous colitis, FOBT pending, previously positive at last admission Complicated by malnutrition, FOBT pending, GI consult pending FOBT was positive 06/25 when patient also required a transfusion, hgb stable after that until this morning 07/10: acute drop in hgb to 6.2 from 8.5 at admission, 7.1 yesterday, 2 units pRBC ordered and being given, this also happened during the last admission, GI was consulted, no workup deemed necessary, hgb stable after transfusion last time (06/25/22), blood loss was thought to be secondary to occult bleeding from chronic collagenous colitis complicated by C diff colitis with a fecal occult blood test positive on last admission, repeat fecal occult negative 07/11: Hemoglobin stable at 7.8, was 7.3 after transfusion yesterday, continue to monitor 07/12: Hemoglobin stable at 7.9 today. Eliquis on hold. GI following. Recent C diff colitis. Transfusion of 2 units of PRBC on 07/10/2022. History of chronic collagenous colitis. FOBT negative this admission. Will resume Eliquis 07/16: hemoglobin down to 6.9. Will transfuse 1 unit of PRBC no signs of bleeding present currently will continue to monitor 07/17: H&H is stable. Status post transfusion of 1 unit of PRBC on 07/16/2022. No active signs of bleeding 07/23/2022 interval history: Patient on BiPAP throughout the day as well as at night. currently patient on RA, he feels a little better today. Still has significant cough with wheezing. No chest pain, patient has a blood culture is positive Pseudomonas patient is being treated with Cefepime, and vancomycin, will require 21 days of IV abx there was a concern for C diff which is negative, patient also had anemia patient his hemoglobin dropped 6.2 from 8.5 upon admission patient received 2 units of pack RBC, patient FOBT was positive, on 07/22 patient hgb dropped to 6.6 there is no obvious source of bleeding, seen by GI suspect due to chronic anticoagulation, will conservatively monitor, he does has risk of bleeding due to anticoagulation, GI does not suspect colonic malignancy as patient had normal colonoscopy less than 1 yr ago, will continue to monitor. patient has no new complaints (2) Sepsis: Qualifiers: Sepsis acute organ dysfunction status: with acute organ dysfunction Sepsis type: sepsis due to unspecified organism Severe sepsis acute organ dysfunction type: acute renal failure Severe sepsis shock status: without septic shock Code(s): A41.9 - Sepsis, unspecified organism Status: Acute Assessment and Plan: Continue IV Flagyl and oral vancomycin for C diff colitis, cefepime for Pseudomonas UTI, IV vancomycin for MRSA bacteremia, replete blood cultures from 07/11 no growth to date IV vanc, h/o MRSA bacteremia from last admission that was treated with daptomycin for approximately 14 days, possibly incompletely treated? Blood cultures positive for MRSA again here, source is most likely his central line catheter from the last admission, YOLIS done at last admission was negative for vegetation, once blood cultures are negative, at that point would place PICC line and treat for 21 days from negative blood cultures with IV antibiotics due to recurrence and underlying immunocompromised state, would discuss with ID pharmacist best IV medication for this patient, will continue IV vancomycin for now Diarrhea appears to be at baseline, previously on immodium + budesonide for collagenous colitis, held for now due to C diff infection, repeat C diff test pending Thoracentesis performed 07/10: Cytology wit
[2022-07-23] MEDS: EPOETIN ALFA-EPBX 10,000 UNITS/ML VIAL 10000 UNITS SUB-Q (12:15)
--- NOTE | 2022-07-23 14:15 | PCOTNOTE ---
Attempted to see pt for occupational therapy treatment this PM. Pt refused, stating Not today...I have a lot on my mind. Pt declined to elaborate and also declined to get up in the chair stating I will get up later. Pt was educated on the importance of continued participation in therapy, however, pt continued to declined stating I will do it tomorrow. Will continue per poc duration/frequency tomorrow.
[2022-07-23] MEDS: guaiFENesin 200 MG/10 ML UDC 400 MG PO (15:15)
[2022-07-23] MEDS: FUROSEMIDE INJ 40 MG/4 ML VIAL 20 MG IV PUSH (16:28)
[2022-07-23] MEDS: ZOLPIDEM TARTRATE (*CRX) 5 MG TABLET 10 MG PO (22:21)
[2022-07-23] MEDS: TAMSULOSIN HCL 0.4 MG CAPSULE PO (22:22)
[2022-07-23] MEDS: ATORVASTATIN 10 MG TABLET PO (22:22)
[2022-07-23 23:16] LABS: Vancomycin Trough 18.2 ug/mL (10.0-20.0)
[2022-07-24] VITALS (15 sets, daily range): BP systolic 113–142; BP diastolic 76–78; PULSE 60–76; RESP 14–21; TEMP 35.9–36.6; O2SAT 92–98
[2022-07-24] MEDS: ALBUTEROL SULFATE NEB 2.5 MG/3 ML INH INHALATION ×3 (01:48→13:14)
[2022-07-24] MEDS: IPRATROPIUM BR 0.02% INH SOLN 0.5 MG/2.5 ML VIAL INHALATION ×3 (01:49→13:14)
[2022-07-24] MEDS: LEVOTHYROXINE SODIUM 50 MCG TABLET PO (06:18)
[2022-07-24] MEDS: CENTRAL LINE FLUSH 10 ML IV PUSH ×2 (06:18→13:03)
[2022-07-24] MEDS: methylPREDNISolone SOD SUCC 40 MG VIAL IV PUSH ×2 (06:18→13:02)
[2022-07-24 06:30] LABS: Hematocrit 24.2 % (42.0-52.0); Hemoglobin 8.1 g/dL (14.0-18.0); Mean Corpuscular HGB Conc 33.5 g/dl (32-36); Mean Corpuscular Hemoglobin 33.1 pg (26-34); Mean Corpuscular Volume 98.8 fl (80-100); Mean Platelet Volume 11.5 fl (7.4-10.4); Platelet Count Result 62 k/mm3 (150-375); Red Blood Count 2.45 M/mm3 (4.6-6.20); White Blood Count 3.7 K/mm3 (4.5-10.0)
[2022-07-24 06:37] LABS: Anion Gap 7 mmol/L (8-16); Blood Urea Nitrogen 58 mg/dL (9-20); Calcium 8.2 mg/dL (8.4-10.2); Carbon Dioxide 34 mmol/L (22-30); Chloride 88 mmol/L (98-107); Estimated CRCL calculation 34 ml/min; Estimated Glomerular Filt Rate 48; Glucose 106 mg/dL (65-110); Magnesium 1.6 mg/dL (1.6-2.3); Potassium 3.3 mmol/L (3.4-5.0); Sodium 129 mmol/L (137-145)
[2022-07-24] MEDS: BUDESONIDE RESPULE NEB 0.5 MG/2 ML AMP INHALATION (08:00)
[2022-07-24] MEDS: SACCHAROMYCES BOULARDII 250 MG CAPSULE PO ×2 (09:10→13:03)
[2022-07-24] MEDS: PANTOPRAZOLE SOD SESQUIHYDRATE 20 MG TAB PO (09:10)
[2022-07-24] MEDS: METOPROLOL SUCCINATE EXT REL 50 MG TABCR PO (09:10)
[2022-07-24] MEDS: POTASSIUM CHLORIDE 20 MEQ TABLET 40 MEQ PO (09:10)
[2022-07-24] MEDS: FAMOTIDINE 20 MG TABLET PO (09:11)
[2022-07-24] MEDS: metOLazone 5 MG TABLET PO (09:11)
[2022-07-24] MEDS: BENZONATATE 100 MG CAPSULE 200 MG PO ×2 (09:11→13:03)
[2022-07-24] MEDS: CALCIUM CARBONATE (OSCAL) 500 MG TABLET PO (09:11)
[2022-07-24] MEDS: MUPIROCIN 2% OINT 22 GM TUBE 1 APPLIC EACH NARE (09:14)
[2022-07-24] MEDS: BUMETANIDE INJ 1 MG/4 ML VIAL 2 MG IV PUSH (09:17)
[2022-07-24] MEDS: MAGNESIUM OXIDE 400 MG TABLET PO (09:18)
--- NOTE | 2022-07-24 09:20 | P.PNNP_ITS ---
Progress Note: A&P Assessment and Plan (1) ZORAN (acute kidney injury): Code(s): N17.9 - Acute kidney failure, unspecified Status: Acute Assessment and Plan: * suffered ZORAN/ARF on last hospitalization due to sepsis * his creatinine improved by discharge. * On admission his creatinine was 1.2 then angelica to 1.5 with diuresis and now is back to 1.3. * previous evaluation noted: * renal ultrasound normal * urine electrolytes are pre-renal * CPK normal * creatinine stable at 1.4 (2) Sepsis: Qualifiers: Sepsis acute organ dysfunction status: with acute organ dysfunction Sepsis type: sepsis due to unspecified organism Severe sepsis acute organ dysfunction type: acute renal failure Severe sepsis shock status: without septic shock Code(s): A41.9 - Sepsis, unspecified organism Status: Acute Assessment and Plan: * as evidence by lactic acidosis, fever, tachycardia, tachypnea, and confusion * blood cultures with MRSA and urine culture with Pseudomonas * repeat sputum culture shows yeast. Repeat urine culture was negative. Repeat blood cultures negative. * on Vancomycin plus cefepime * repeat blood cultures negative so far. * Urine cultures negative (3) Pleural effusion: Code(s): J90 - Pleural effusion, not elsewhere classified Status: Acute Assessment and Plan: * likely to third spacing from hypoalbuminemia from recent acute illne ss/hospitalization * Albumin level okay now. * Making more urine with the metolazone. * He has an allergy to sulfa however it was mental status changes due to Bactrim not a rash. (4) Hyponatremia: Code(s): E87.1 - Hypo-osmolality and hyponatremia Status: Chronic Assessment and Plan: * chronic issue * previous evaluation noted: * cortisol level low - cosyntropin resulted in a cortisol level 31 * TSH is normal * CT of the head + chest x-ray are negative for masses/tumors * no history of cancer * off PPI * Sodium level dropped some to 129. Will add fluid restriction. (5) Anemia: Qualifiers: Anemia type: other cause Other causes of anemia: chronic disease, other Qualified Code(s): D63.8 - Anemia in other chronic diseases classified elsewhere Code(s): D64.9 - Anemia, unspecified Status: Acute Assessment and Plan: * due to ZORAN, possible new mild CKD, and acute illness currently and from last hospitalization * follow trend of H/H * PRBC transfusion per protocol * on empiric Epogen therapy * Retake count only 1.15%. * on more Epogen. (6) C. difficile diarrhea: Code(s): A04.72 - Enterocolitis due to Clostridium difficile, not specified as recurrent Status: Acute Assessment and Plan: * completed course of oral vancomycin and IV flagyl * supportive therapy Subjective Date/time seen: 07/24/22 09:20 Interval history: Naga is feeling a bit better today. No shortness of breath. Exam Narrative: General: ill appearing male laying in bed in NAD Heart: normal S1 and S2; no rub or gallop Lungs: coarse and decreased at bases Abdomen: soft, nontender, nondistended, positive bowel sounds Extremities: 1+ edema Skin: No rash Objective Data Vital Signs Vital Signs: Vital Signs - 24 hr 07/23/22 12:00 07/23/22 14:00 07/23/22 09:43 Temperature 35.7 C L
--- NOTE | 2022-07-24 09:20 | PM.PNNEP ---
Progress Note: A&P Assessment and Plan (1) ZORAN (acute kidney injury): Code(s): N17.9 - Acute kidney failure, unspecified Status: Acute Assessment and Plan: suffered ZORAN/ARF on last hospitalization due to sepsis his creatinine improved by discharge. On admission his creatinine was 1.2 then angelica to 1.5 with diuresis and now is back to 1.3. previous evaluation noted: renal ultrasound normal urine electrolytes are pre-renal CPK normal creatinine stable at 1.4 (2) Sepsis: Qualifiers: Sepsis acute organ dysfunction status: with acute organ dysfunction Sepsis type: sepsis due to unspecified organism Severe sepsis acute organ dysfunction type: acute renal failure Severe sepsis shock status: without septic shock Code(s): A41.9 - Sepsis, unspecified organism Status: Acute Assessment and Plan: as evidence by lactic acidosis, fever, tachycardia, tachypnea, and confusion blood cultures with MRSA and urine culture with Pseudomonas repeat sputum culture shows yeast. Repeat urine culture was negative. Repeat blood cultures negative. on Vancomycin plus cefepime repeat blood cultures negative so far. Urine cultures negative (3) Pleural effusion: Code(s): J90 - Pleural effusion, not elsewhere classified Status: Acute Assessment and Plan: likely to third spacing from hypoalbuminemia from recent acute illness/hospitalization Albumin level okay now. Making more urine with the metolazone. He has an allergy to sulfa however it was mental status changes due to Bactrim not a rash. (4) Hyponatremia: Code(s): E87.1 - Hypo-osmolality and hyponatremia Status: Chronic Assessment and Plan: chronic issue previous evaluation noted: cortisol level low - cosyntropin resulted in a cortisol level [address] of the head + chest x-ray are negative for masses/tumors no history of cancer off PPI Sodium level dropped some to 129. Will add fluid restriction. (5) Anemia: Qualifiers: Anemia type: other cause Other causes of anemia: chronic disease, other Qualified Code(s): D63.8 - Anemia in other chronic diseases classified elsewhere Code(s): D64.9 - Anemia, unspecified Status: Acute Assessment and Plan: due to ZORAN, possible new mild CKD, and acute illness currently and from last hospitalization follow trend of H/H PRBC transfusion per protocol on empiric Epogen therapy Retake count only 1.15%. on more Epogen. (6) C. difficile diarrhea: Code(s): A04.72 - Enterocolitis due to Clostridium difficile, not specified as recurrent Status: Acute Assessment and Plan: completed course of oral vancomycin and IV flagyl supportive therapy Subjective Date/time seen: 07/24/22 09:20 Interval history: Naga is feeling a bit better today. No shortness of breath. Exam Narrative: General: ill appearing male laying in bed in NAD Heart: normal S1 and S2; no rub or gallop Lungs: coarse and decreased at bases Abdomen: soft, nontender, nondistended, positive bowel sounds Extremities: 1+ edema Skin: No rash Objective Data Vital Signs Vital Signs: Vital Signs - 24 hr 07/23/22 12:00 07/23/22 14:00 07/23/22 09:43 Temperature 35.7 C L Pulse Rate 83 69 85 Respiratory Rate 20 18 Blood Pressure 125/70 Pulse Oximetry 100 Oxygen Delivery Fraction of Inspired Oxygen 07/23/22 09:55 07/23/22 14:14 07/23/22 14:14 Temperature Pulse Rate 83 83 Respiratory Rate 20 18 Blood Pressure Pulse Oximetry 97 Oxygen Delivery Room Air Fraction of Inspired Oxygen 07/23/22 14:26 07/23/22 10:06 07/23/22 16:00 Temperature Pulse Rate 69 80 73 Respiratory Rate 20 18 Blood Pressure Pulse Oximetry Oxygen Delivery Fraction of Inspired Oxygen 07/23/22 20:17 07/23/22 20:17
--- NOTE | 2022-07-24 09:43 | PCNFU ---
Nutrition Follow-Up Complete: Unintentional weight loss related to reduced appetite and intake prior to admission as evidenced by family report Goal: PO intake to continue 75% or greater for meals and supplements. Pt is progressing towards goal Pt current nutrition is Heart healthy diet, Ensure compact BID, 1400ml fluid restriction. Nutrition recommendation: Continue with current plan of care. Last recorded weight is 75.3 kg - down from 82kg, noted on diuretics and fluid restriction. Bowel Motility: +BM 07/22 Labs Reviewed: HGB:8.1, HCT:24.2, NA:129, K:3.3, BUN:58, Cr:1.4 Meds Noted:eliquis, bumex Skin: WNL Additional Notes: Pt continues on a heart healthy diet, intake 50-75% most meals. 1400ml fluid restriction noted to start today. Ensure compact BID in place per rec. Agree with diet orders, Monitor intake, wt, labs. Follow up in 7 days.
--- NOTE | 2022-07-24 12:48 | PM.DS ---
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, malnutrition, c dif colitis, chronic collagenous colitis, FOBT pending, previously positive at last admission Complicated by malnutrition, FOBT pending, GI consult pending FOBT was positive 06/25 when patient also required a transfusion, hgb stable after that until this morning 07/10: acute drop in hgb to 6.2 from 8.5 at admission, 7.1 yesterday, 2 units pRBC ordered and being given, this also happened during the last admission, GI was consulted, no workup deemed necessary, hgb stable after transfusion last time (06/25/22), blood loss was thought to be secondary to occult bleeding from chronic collagenous colitis complicated by C diff colitis with a fecal occult blood test positive on last admission, repeat fecal occult negative 07/11: Hemoglobin stable at 7.8, was 7.3 after transfusion yesterday, continue to monitor 07/12: Hemoglobin stable at 7.9 today. Eliquis on hold. GI following. Recent C diff colitis. Transfusion of 2 units of PRBC on 07/10/2022. History of chronic collagenous colitis. FOBT negative this admission. Will resume Eliquis 07/16: hemoglobin down to 6.9. Will transfuse 1 unit of PRBC no signs of bleeding present currently will continue to monitor 07/17: H&H is stable. Status post transfusion of 1 unit of PRBC on 07/16/2022. No active signs of bleeding 07/23/2022 interval history: Patient on BiPAP throughout the day as well as at night. currently patient on RA, he feels a little better today. Still has significant cough with wheezing. No chest pain, patient has a blood culture is positive Pseudomonas patient is being treated with Cefepime, and vancomycin, will require 21 days of IV abx there was a concern for C diff which is negative, patient also had anemia patient his hemoglobin dropped 6.2 from 8.5 upon admission patient received 2 units of pack RBC, patient FOBT was positive, on 07/22 patient hgb dropped to 6.6 there is no obvious source of bleeding, seen by GI suspect due to chronic anticoagulation, will conservatively monitor, he does has risk of bleeding due to anticoagulation, GI does not suspect colonic malignancy as patient had normal colonoscopy less than 1 yr ago, will continue to monitor. patient has no new complaints (3) Sepsis: Qualifiers: Sepsis acute organ dysfunction status: with acute organ dysfunction Sepsis type: sepsis due to unspecified organism Severe sepsis acute organ dysfunction type: acute renal failure Severe sepsis shock status: without septic shock Code(s): A41.9 - Sepsis, unspecified organism Status: Acute Assessment and Plan: Continue IV Flagyl and oral vancomycin for C diff colitis, cefepime for Pseudomonas UTI, IV vancomycin for MRSA bacteremia, replete blood cultures from 07/11 no growth to date IV vanc, h/o MRSA bacteremia from last admission that was treated with daptomycin for approximately 14 days, possibly incompletely treated? Blood cultures positive for MRSA again here, source is most likely his central line catheter from the last admission, YOLIS done at last admission was negative for vegetation, once blood cultures are negative, at that point would place PICC line and treat for 21 days from negative blood cultures with IV antibiotics due to recurrence and underlying immunocompromised state, would discuss with ID pharmacist best IV medication for this patient, will continue IV vancomycin for now Diarrhea appears to be at baseline, previously on immodium + budesonide for collagenous colitis, held for now due to C diff infection, repeat C diff test pending Thoracentesis performed 07/10: Cyt
[2022-07-24 14:52] LABS: EDCOVIDSCREEN Negative (Negative)
== END 2022-07-24 15:40 | DRG 314 ==
LOC: ANHED 18:50 → ANHIMU 21:54 → ANH3MEDSUR 07-15 06:16 → ANHIMU 07-17 11:58 → ANH3MEDSUR 07-23 02:19
PROVIDERS: Internal Medicine; Internal Medicine Gastroenterology; Internal Medicine Nephrology; Student in an Organized Health Care Education/Training Program; Admitting Provider Internal Medicine; Emergency Provider General Practice; PCP Family Medicine; Visit Provider Family Medicine
DX: T80.211A Bloodstream infection due to central venous catheter, initial encounter (principal); A41.02 Sepsis due to Methicillin resistant Staphylococcus aureus; R65.21 Severe sepsis with septic shock; I50.33 Acute on chronic diastolic (congestive) heart failure; N10 Acute pyelonephritis; J90 Pleural effusion, not elsewhere classified; D69.3 Immune thrombocytopenic purpura; D62 Acute posthemorrhagic anemia; N17.9 Acute kidney failure, unspecified; E87.1 Hypo-osmolality and hyponatremia; I13.0 Hypertensive heart and chronic kidney disease with heart failure and stage 1 through stage 4 chronic kidney disease, or unspecified chronic kidney disease; D61.818 Other pancytopenia; E46 Unspecified protein-calorie malnutrition; N18.2 Chronic kidney disease, stage 2 (mild); Z20.822 Contact with and (suspected) exposure to COVID-19; E83.42 Hypomagnesemia; E03.9 Hypothyroidism, unspecified; I35.0 Nonrheumatic aortic (valve) stenosis; I48.91 Unspecified atrial fibrillation; J44.9 Chronic obstructive pulmonary disease, unspecified; Z95.1 Presence of aortocoronary bypass graft; Z96.653 Presence of artificial knee joint, bilateral; E78.2 Mixed hyperlipidemia; Z82.49 Family history of ischemic heart disease and other diseases of the circulatory system; Z87.891 Personal history of nicotine dependence; Z79.51 Long term (current) use of inhaled steroids; Z79.899 Other long term (current) drug therapy; Z88.2 Allergy status to sulfonamides; Z95.3 Presence of xenogenic heart valve; Z68.26 Body mass index [BMI] 26.0-26.9, adult
CPT/HCPCS: 32555; 36415; 36430; 36569; 36600; 71045; 74176; 80048; 80053; 80069; 80202; 81001; 81050; 82274; 82375; 82565; 82570; 82805; 82945; 82948; 83050; 83540; 83550; 83605; 83615; 83690; 83735; 83880; 84100; 84145; 84156; 84157; 84484; 85014; 85018; 85025; 85027; 85046; 85055; 85610; 85652; 85730; 86140; 86850; 86900; 86901; 86923; 87040; 87070; 87077; 87086; 87088; 87186; 87205; 87426; 87493; 87636; 89051; 93005; 93970; 94002; 94003; 94640; 94660; 96361; 96365; 96375; 97110; 97116; 97161; 97166; 97530; 97535; 99285; A9270; C1751; C9803; J0131; J0692; J1200; J1940; J2060; J2405; J2765; J2920; J2930; J3370; J3475; J7030; J7050; P9016; P9047; Q5105

== ENCOUNTER 2022-07-25 13:34 | Inpatient (IN) | payer MEDICARE, OTHER, SELFPAY ==
[2022-07-25] VITALS (46 sets, daily range): BP systolic 101–135; BP diastolic 57–87; PULSE 69–81; RESP 16–20; TEMP 36.6–37.4; O2SAT 91–100; BMI 26.4
--- NOTE | ~2022-07-25 | XR_ITS ---
XR chest 1V portable DATE: 07/25/2022 15:22 INDICATION: Cough. Altered mental state. Hypertension. TECHNIQUE: Portable upright AP chest on 07/25/2022 1517 hours COMPARISON: 07/23/2022 portable AP chest at 1601 hours FINDINGS: There is right mid and bilateral lower lung infiltrate and/atelectasis, right greater than left, in addition to mild pleural effusions, also greater on the right. Status post sternotomy. Heart size appears normal. Aortic calcification. Right upper stomach the catheter tip overlies the superior vena cava. Diffuse osteopenia. Degenerative spurring of the thoracic spine. IMPRESSION: Persistent right mid and bilateral lower lung infiltrates and/atelectasis and pleural eff usions No significant change since 07/23/2022 Reviewed, dictated and finalized at location B. LESS SALES ASSOCIATE IMPRESSION: Persistent right mid and bilateral lower lung infiltrates and/atele ctasis and pleural effusions No significant change since 07/23/2022
--- NOTE | ~2022-07-25 | XR_ITS ---
EXAMINATION: XR hip RT min 2V DATE: 07/27/2022 12:45 INDICATION: Right hip pain. TECHNIQUE: 2 views of right hip were obtained. COMPARISON: None. FINDINGS: Bone alignment is normal. No fracture. There is moderate right hip osteoarthritis. IMPRESSION: 1. Moderate right hip osteoarthritis. Reviewed, dictated and finalized at location A. APPLICATION CLERK
--- NOTE | ~2022-07-25 | CT_ITS ---
EXAMINATION: CT brain wo con DATE: 07/25/2022 16:36 INDICATION: Altered mental state TECHNIQUE: Computed tomography (CT) of the head was performed without intravenous contrast. The mA wa s adjusted according to patient size. Iterative reconstruction technique was employed. Exam dose: 60 5.33 mGy-cm total exam DLP. COMPARISON: 06/13/2022 CT brain FINDINGS: Left vertebral artery and more prominent bilateral carotid siphon arterial calcifications. There is prominent patchy nonspecific diminished attenuation of the cerebral white matter, likely due to chronic small vessel ischemic changes. Small chronic lacunar infarct of right caudate nucleus. Moderately prominent central and cortical cerebral and cerebellar atrophy. No intracranial mass lesion or hemorrhage or recent cerebrovascular accident is detected. Bilateral ocular lens replacement. Mild mucoperiosteal thickening of the lower aspect of the left maxillary sinus. The paranasal sinuses and mastoid air cells are otherwise unremarkable. No fracture or bone destruction of the cranial vault. IMPRESSION: Cerebral atherosclerosis and chronic small vessel ischemic changes of the cerebral white matter Small chronic lacunar infarct of right caudate nucleus Moderately prominent central and cortical cerebral and cerebellar atrophy No acute intracranial finding Reviewed, dictated and finalized at Location A. Reviewed, dictated and finalized at location B. GER DISH
--- NOTE | ~2022-07-25 | CT_ITS ---
EXAMINATION: CT abdomen pelvis w con DATE: 07/25/2022 16:38 INDICATION: Abdominal pain. Sepsis. Pyelonephritis. TECHNIQUE: Computed tomography (CT) of the abdomen and pelvis was performed with 100 CC Omnipaque 350 intravenous contrast. Automated exposure control and iterative reconstruction technique were employe d. Exam dose: 590.76 mGy-cm total exam DLP. COMPARISON: 07/25/2022 portable AP chest 07/08/2022 CT abdomen pelvis FINDINGS: There are prominent bilateral pleural effusions, increased since 07/08/2022, with bilateral lower lobe compressive atelectasis. Heart size is within normal range. No pericardial effusion. Approximately 1 cm lateral segment left hepatic cyst. The kidney is otherwise unremarkable. Cholelithiasis. No gallbladder wall thickening or pericholecystic fluid or fat stranding. No bile samuel t or pancreatic duct dilatation. There is hypoenhancement at the posteromedial aspect of the spleen; no prior CT abdomen with IV contr ast material is available for comparison. Splenic size is within normal range. Normal morphology of the adrenal glands. Multiple bilateral renal cysts. No urinary tract calculus or hydroureteronephrosis. There is atherosclerotic calcification of the abdominal aorta and prominent calcification at the orig ins of the celiac and superior mesenteric and inferior mesenteric arteries. Fusiform infrarenal abdominal aortic aneurysm measures up to approximately 3.6 cm maximal diameter. T here is calcification and ectasia of the common iliac arteries, calcification of the femoral arteries . No intraperitoneal or retroperitoneal or pelvic mass lesion or adenopathy is noted. There is mild asc ites including fluid along the right paracolic gutter and in the pelvic area. There is a posterolater ally air within the bladder lumen. There is moderate diffuse thickening of the urinary bladder wall. Prostate gland is unremarkable. Diverticulosis of the colon; no CT evidence of diverticulitis. There are air-fluid levels of small an d primarily large bowel, without evidence of bowel obstruction. No intraperitoneal free air. Small fat-containing umbilical hernia. Small bilateral fat-containing inguinal hernias, left larger than right. Osteopenia. Degenerative changes of the thoracic and lumbar spine including moderately severe to lila re degenerative disc disease at L3-4, L4-5 and L5-S1, with mild associated retrolisthesis. No suspicious osteolytic or osteoblastic lesions are noted. IMPRESSION: Prominent bilateral pleural effusions and bilateral lower lobe compressive atelectasis 1 cm left hepatic cyst, although bilateral renal cysts Cholelithiasis Up to 3.6 cm fusiform infrarenal abdominal aortic aneurysm Air in the bladder lumen, moderate diffuse thickening of the urinary bladder wall. Cystitis is not ex cluded. Small and particularly large bowel air-fluid levels, suggesting possible enterocolitis Colonic diverticulosis Mild ascites Reviewed, dictated and finalized at Location A. Reviewed, dictated and finalized at location B. ORATION OFFICER IMPRESSION: Prominent bilateral pleural effusions and bilateral lower lobe com pressive atelectasis 1 cm left hepatic cyst, although bilateral renal cysts Cholelithiasis Up to 3.6 cm fusiform infrarenal abdominal aortic aneurysm Air in the bladder lumen, moderate diffuse thickening of the urinary bladder wa ll. Cystitis is not excluded. Small and particularly large bowel air-fluid levels, suggesting possible entero colitis Colonic diverticulosis Mild ascites
--- NOTE | 2022-07-25 14:10 | ECG_ITS ---
Measurements Intervals [place] Rate: 76 P: 36 HI: 180 QRS: 2 QRSD: 106 T: 54 QT: 419 QTc: 472 Interpretive Statements SINUS RHYTHM DELAYED PRECORDIAL R/S TRANSITION BORDERLINE ECG COMPARED TO ECG 07/16/2022 20:32:58 SINUS RHYTHM NOW PRESENT Electronically Signed On 07-25-2022 22:53:04 [employer] by El Toth D.O.
--- NOTE | 2022-07-25 14:14 | ED.GENADULT ---
HPI - General Adult General Chief complaint: Altered Mental Status Stated complaint: Altered mental Time Seen by Provider: 07/25/22 13:45 History of Present Illness HPI narrative: This is an 82-year-old male presenting ED with a brief episode of altered mental status. Approximately 6 weeks ago patient was admitted to the hospital for Sepsis. Since then he has had a complicated course including pseudomonal infection, multiple transfusions and pneumonia. Patient was recently discharged to a rehab facility. He has been doing well until this morning when he had approximately 2 hours of altered mental status this morning. Approximately 9:00 a.m. he says he became disoriented was having trouble breathing and did not have his normal mentation which is A&O x4. The rehab center then called EMS and had him sent to the hospital. Patient has no complaints outside of cough and congestion. He also notes that he is having some suprapubic pain. Patient was discharged with a [place] catheter that has been in place for several weeks. Related Data Home Medications Medication Instructions Recorded Confirmed albuterol sulfate 90 mcg/actuation 1 inh inhalation QID PRN Shortness 02/20/20 07/08/22 aerosol inhaler (ProAir HFA) Of Breath solifenacin 10 mg tablet (Vesicare) 10 mg PO DAILY 07/13/21 07/08/22 calcium carb-Ca gluc 500 mg 1 tablet PO DAILY 06/13/22 07/08/22 calcium-magnesium ox-Mg gluc 250 mg tablet (Calcium Magnesium) clobetasol 0.05 % scalp solution 1 applic topical DAILY PRN Skin 06/13/22 07/08/22 Irritation phenazopyridine 100 mg tablet 100 mg PO TID PRN Bladder Spasms 06/13/22 07/08/22 (Pyridium) hydrocortisone 1 %-pramoxine 1 % 1 applic RECTAL DAILY 07/08/22 07/08/22 rectal foam (Proctofoam HC) levothyroxine 50 mcg tablet 50 mcg PO DAILY 07/08/22 07/08/22 (Synthroid) Allergies Allergy/AdvReac Type Severity Reaction Status Date / Time sulfamethizole Allergy Unknown Confusion Verified 07/09/22 00:46 sulfamethoxazole Allergy Unknown Confusion Verified 07/09/22 00:46 trimethoprim Allergy Unknown Confusion Verified 07/09/22 00:46 Review of Systems Review of Systems: CONSTITUTIONAL: Denies night sweats. EYES: No eye pain ENT: Denies rhinorrhea CARDIOVASCULAR: Denies palpitations RESPIRATORY: Denies hemoptysis GASTROINTESTINAL: Denies hematemesis GENITOURINARY: Denies hematuria. SKIN: Denies rash MUSCULOSKELETAL: Denies myalgia. NEUROLOGIC: Denies weakness. PSYCHIATRIC: Denies delusions [facility] Past Medical History Medical History Anemia Aortic valve stenosis Atrial fibrillation Atrial fibrillation with RVR Occurred during admission May 2022 due to sepsis Basal cell carcinoma BPH (benign prostatic hyperplasia) Chronic idiopathic thrombocytopenia Collagenous colitis Resulting in chronic loose stools Coronary artery disease Diastolic dysfunction Echocardiogram 04/2022: EF 70% grade 1 diastolic dysfunction, aortic valve prosthesis with good function, moderate pulmonary hypertension Diastolic heart failure Essential hypertension Gastroesophageal reflux Hypothyroidism, unspecified Insomnia Kidney stones Latent tuberculosis Treated with INH in 1959 Mild persistent asthma without complication Mixed hyperlipidemia Thrombocytopenia Surgical History Surgical History H/O aortic valve replacement (2013) 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 Family history of coronary artery disease, Onset Age: 60 Acute myocardial infarction Social History Social History (Reviewed 07/25/22 @ 14:17 by Rian Elliott MD
[2022-07-25 15:03] LABS: Influenza A QL RT-PCR Positive (Negative); Influenza B QL RT-PCR Negative (Negative); SARS-CoV-2 RNA PCR Negative
[2022-07-25 15:24] LABS: Glucose Point of Care 105 mg/dl (65-105)
[2022-07-25 16:10] LABS: Appearance Urine Clear (Clear); Bilirubin Urine Negative (Negative); Blood Urine 2+ (Negative); Color Urine Yellow (Yellow); Glucose Urine UA Negative (Negative); Ketones Urine Negative (Negative); Leukocyte Esterase Ur Negative LEU/UL (Negative); Nitrate Urine Negative (Negative); Protein Urine 1+ mg/dL (Negative); Specific Grav Ur 1.015 (1.001-1.035); Urobilinogen Urine 0.2 mg/dL (<2.0)
[2022-07-25 16:12] LABS: Basophils Percent Auto 0.1 % (0.2-1.2); Hematocrit 23.3 % (42.0-52.0); Hemoglobin 7.8 g/dL (14.0-18.0); Immature Granulocyte Absolute 0.18 K/mm3 (0.00-0.031); Immature Granulocyte Percent A 1.6 % (0-0.5); Immature Platelet Fraction Pct 9.6 % (0.9-11.2); Lymphocytes Absolute Auto 0.53 K/mm3 (0.9-3.2); Lymphocytes Percent Auto 4.8 % (18.3-44.2); Mean Corpuscular HGB Conc 33.5 g/dl (32-36); Mean Corpuscular Hemoglobin 32.8 pg (26-34); Mean Corpuscular Volume 97.9 fl (80-100); Mean Platelet Volume 11.5 fl (7.4-10.4); Monocytes Absolute Auto 0.9 K/mm3 (0.1-0.6); Monocytes Percent Auto 8.3 % (2.6-8.5); Neutrophils Absolute Auto 9.5 K/mm3 (1.3-6.7); Neutrophils Percent Auto 85.2 % (45.5-73.1); Platelet Count Result 111 k/mm3 (150-375); Red Blood Count 2.38 M/mm3 (4.6-6.20); Red Cell Distribution Width 17.6 % (11.5-14.5); White Blood Count 11.1 K/mm3 (4.5-10.0)
[2022-07-25 16:17] LABS: Lactic Acid Reflex 2.2 mmol/L (0.7-2.0)
[2022-07-25 16:18] LABS: Mucus Urine Rare /lpf; WBC Urine 0-3 /hpf
[2022-07-25 16:19] LABS: Alanine Aminotransferase 32 U/L (6-50); Albumin Level 3.3 g/dL (3.5-5.1); Alkaline Phosphatase 59 U/L (38-126); Anion Gap 9 mmol/L (8-16); Aspartate Amino Transferase 30 U/L (17-59); Bilirubin,Total 1.4 mg/dL (0.2-1.3); Blood Urea Nitrogen 63 mg/dL (9-20); Calcium 8.5 mg/dL (8.4-10.2); Carbon Dioxide 33 mmol/L (22-30); Chloride 87 mmol/L (98-107); Creatine Kinase 48 U/L (55-170); Estimated CRCL calculation 28 ml/min; Estimated Glomerular Filt Rate 39; Glucose 99 mg/dL (65-110); Lipase 237 U/L (23-300); Magnesium 1.6 mg/dL (1.6-2.3); Phosphorus 4.4 mg/dL (2.5-4.5); Potassium 3.5 mmol/L (3.4-5.0); Sodium 129 mmol/L (137-145)
[2022-07-25 16:21] LABS: INR 1.4; Prothrombin Time 16.9 Seconds (11.1-14.7)
[2022-07-25 16:22] LABS: Add Urine Microscopic? YES; Partial Thromboplastin Time 25.7 SECONDS (22.3-36.8)
[2022-07-25 16:41] LABS: Troponin I 0.059 ng/mL (0.000-0.034)
[2022-07-25 16:47] LABS: NT Pro B Type Natriuretic Pept 9850 pg/mL (5-100)
[2022-07-25 19:03] LABS: Reflex Lactic Acid Yes or No Add Lactic
--- NOTE | 2022-07-25 19:09 | PM.IMHP ---
H&P: HPI History of Present Illness Date/Time: 07/25/22 19:09 Chief Complaint: Altered mental status Narrative: 82 year old male sent in by [facility] staff for disorientation. Pt was recently discharged from the hospital, pt had several medical problems in his recent admission and was here almost 2 weeks with Cdiff colitis, sepsis, pseudomonal UTI, MRSA bacteremia, pyelonephritis and pleural effusion. Pt also has a history of and AF, BPH, CHF and hypothyroidism. Pt was discharged to [facility] with PICC line in situ and angulo catheter in situ. Pt denies any fever but has a slight wet cough, denies SOB not on any oxygen presently On this admission pt found to be flu positive influenza A, creat is 1.7 and hb [place] 7.8, [place] [id number] sodium is 129, trop slightly elevated, BNP [place] high [place] 9850. CT abdo/ pelvis shows - Prominent bilateral pleural effusions and bilateral lower lobe compressive atelectasis 1 cm left hepatic cyst, although bilateral renal cysts Cholelithiasis Up to 3.6 cm fusiform infrarenal abdominal aortic aneurysm Air in the bladder lumen, moderate diffuse thickening of the urinary bladder wall. Cystitis is not excluded. Small and particularly large bowel air-fluid levels, suggesting possible enterocolitis Colonic diverticulosis Mild ascites CXR shows - Persistent right mid and bilateral lower lung infiltrates and/atelectasis and pleural effusions No significant change since [facility]23[facility]2022[facility] Past Medical History Medical History Anemia Aortic valve stenosis Atrial fibrillation Atrial fibrillation with RVR Occurred during admission May 2022 due to sepsis Basal cell carcinoma BPH (benign prostatic hyperplasia) Chronic idiopathic thrombocytopenia Collagenous colitis Resulting in chronic loose stools Coronary artery disease Diastolic dysfunction Echocardiogram 04/2022: EF 70% grade 1 diastolic dysfunction, aortic valve prosthesis with good function, moderate pulmonary hypertension Diastolic heart failure Essential hypertension Gastroesophageal reflux Hypothyroidism, unspecified Insomnia Kidney stones Latent tuberculosis Treated with INH in 1959 Mild persistent asthma without complication Mixed hyperlipidemia Thrombocytopenia Surgical History Surgical History H/O aortic valve replacement (2013) 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 And 2 children. He smoked up to 4 packs of cigarettes per day but for the most part smoked 1-2 packs of cigarettes per day. He smoked for approximately 30 years but quit in 1991. He reports that he drinks 4 oz of liquor every day which he describes as social drinking. 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 Code status: Full code Surrogate decision maker: Nae () and Cee (youngest daughter) Smoking packs per day: 1 Smoking cigarettes per day: 20.0 Years smoked: 30 Smoking pack-years: 30.00 Smoking status: Former smoker Tobacco type: cigarettes Second hand tobacco smoke exposure: No Smoking end date: 06/23/92 Alcohol intake: former Alcohol use details: He reports that he drinks 4 oz of liquor every day. Substance use: never Substance use type: does not use Other substance usage details: 1 cocktail/day when he was well Lack of Transportation: No Lack of Food: Never True Current Housing: I Have H
[2022-07-25 22:33] LABS: Glucose Point of Care 101 mg/dl (65-105)
--- NOTE | 2022-07-25 23:28 | ADMGEN ---
This patient, Naga De Leon, was admitted to IMU Room 203-01 on 07/25/22 at 2200. Patient/family oriented to hospital policies and general routines including ID bracelet, bed and alarms, visiting hours, pain management, procedures, bathroom and other care routines, personal items, smoking policy, room service/diet, and visiting hours. Information on how to activate the Rapid Response Team has been discussed. Patient/Family are encouraged to report perceived risks to care and to ask questions if they do not understand what they are told or what they should do.
[2022-07-25] MEDS: OSELTAMIVIR PHOSPHATE 30 MG CAPSULE PO (23:53)
[2022-07-25] MEDS: APIXABAN 2.5 MG TABLET PO (23:53)
[2022-07-26] VITALS (27 sets, daily range): BP systolic 96–115; BP diastolic 43–78; PULSE 70–89; RESP 16–20; TEMP 35.9–36.6; O2SAT 90–100; BMI 26.4
[2022-07-26 00:34] LABS: Lactic Acid 2.8 mmol/L (0.7-2.0)
[2022-07-26] MEDS: IPRATROPIUM BR 0.02% INH SOLN 0.5 MG/2.5 ML VIAL INHALATION ×4 (01:59→19:47)
[2022-07-26] MEDS: ACETAMINOPHEN 500 MG TABLET 1000 MG PO ×3 (02:12→17:06)
[2022-07-26] MEDS: TAMSULOSIN HCL 0.4 MG CAPSULE PO ×2 (02:12→22:02)
[2022-07-26] MEDS: ATORVASTATIN 10 MG TABLET PO ×2 (02:12→22:03)
[2022-07-26] MEDS: ZOLPIDEM TARTRATE (*CRX) 5 MG TABLET PO ×2 (02:13→23:05)
[2022-07-26 04:51] LABS: Anion Gap 7 mmol/L (8-16); Blood Urea Nitrogen 68 mg/dL (9-20); Calcium 8.1 mg/dL (8.4-10.2); Carbon Dioxide 33 mmol/L (22-30); Chloride 90 mmol/L (98-107); Estimated CRCL calculation 28 ml/min; Estimated Glomerular Filt Rate 39; Glucose 86 mg/dL (65-110); Sodium 130 mmol/L (137-145)
[2022-07-26 05:06] LABS: Mean Corpuscular HGB Conc 34.3 g/dl (32-36); Mean Corpuscular Hemoglobin 32.7 pg (26-34); Mean Corpuscular Volume 95.3 fl (80-100); Red Blood Count 2.11 M/mm3 (4.6-6.20); Red Cell Distribution Width 17.6 % (11.5-14.5); White Blood Count 8.1 K/mm3 (4.5-10.0)
[2022-07-26 05:12] LABS: Hemoglobin 6.9 g/dL (14.0-18.0)
[2022-07-26 05:13] LABS: Hematocrit 20.1 % (42.0-52.0)
[2022-07-26] MEDS: KCL 40 MEQ/WATER 100 ML 100 ML 25 ML IVPB (05:48)
[2022-07-26] MEDS: CENTRAL LINE FLUSH 10 ML IV PUSH ×3 (05:58→22:04)
[2022-07-26] MEDS: LEVOTHYROXINE SODIUM 50 MCG TABLET PO (05:59)
[2022-07-26 08:24] LABS: Glucose Point of Care 97 mg/dl (65-105)
[2022-07-26] MEDS: BUDESONIDE RESPULE NEB 0.5 MG/2 ML AMP INHALATION (08:59)
[2022-07-26] MEDS: CALCIUM CARBONATE (OSCAL) 500 MG TABLET PO (09:11)
[2022-07-26] MEDS: MIDODRINE HCL 2.5 MG TABLET PO ×3 (09:11→16:32)
[2022-07-26] MEDS: BENZONATATE 100 MG CAPSULE 200 MG PO ×3 (09:11→16:36)
[2022-07-26] MEDS: PANTOPRAZOLE SOD SESQUIHYDRATE 20 MG TAB PO (09:11)
[2022-07-26] MEDS: SOLIFENACIN 5 MG TABLET 10 MG PO (09:11)
[2022-07-26] MEDS: BUMETANIDE 1 MG TABLET 2 MG PO (09:11)
[2022-07-26] MEDS: MAGNESIUM OXIDE 200 MG TABLET PO (09:11)
[2022-07-26] MEDS: SACCHAROMYCES BOULARDII 250 MG CAPSULE PO ×3 (09:11→16:32)
[2022-07-26] MEDS: METOPROLOL SUCCINATE EXT REL 50 MG TABCR PO ×2 (09:11→23:05)
[2022-07-26] MEDS: FAMOTIDINE 20 MG TABLET PO ×2 (09:12→22:00)
[2022-07-26] MEDS: MUPIROCIN 2% OINT 22 GM TUBE 1 APPLIC EACH NARE ×2 (09:12→22:03)
[2022-07-26] MEDS: predniSONE 10 MG TABLET PO (09:12)
[2022-07-26] MEDS: FLUTICASONE PROPIONATE 0.05% NA SPR 16 GM BTL (*BKC) 2 SPRAY NASAL (09:12)
[2022-07-26] MEDS: OSELTAMIVIR PHOSPHATE 30 MG CAPSULE PO ×2 (09:12→22:02)
[2022-07-26] MEDS: APIXABAN 2.5 MG TABLET PO (09:12)
[2022-07-26] MEDS: LIDOCAINE 5% PATCH 2 PATCH TRANSDERM (09:13)
[2022-07-26] MEDS: HYDROCORTISONE/PRAMOX 1% FOAM 10 GM CAN 1 APPLIC RECTAL (09:13)
--- NOTE | 2022-07-26 09:58 | PM.IMPN ---
Progress Note: A&P Assessment and Plan (1) Influenza: Code(s): J11.1 - Influenza due to unidentified influenza virus with other respiratory manifestations Status: Acute Assessment and Plan: Pt found to be positive for influenza A tamiflu started on admission 07/25, end date 07/29/22 Respiratory isolation precautions (2) ZORAN (acute kidney injury): Code(s): N17.9 - Acute kidney failure, unspecified Status: Acute Assessment and Plan: Creat is 1.7 pt states he has not been eating much, hold diuretics, no IVF, pt has a history of diastolic chf, ascites and pleural effusions baseline appears to be 0.8 but has been consistently over 1.3 since 06/21/22 (3) Encephalopathy acute: Code(s): G93.40 - Encephalopathy, unspecified Status: Acute Assessment and Plan: Secondary to influenza? Persistent right mid and bilateral lower lung infiltrates and dehydration hopeful improvement with treatment if continues to worse will need neurology consult (4) Leukocytosis: Code(s): D72.829 - Elevated white blood cell count, unspecified Status: Acute Assessment and Plan: consult pulm, suspect viral PNA, hold off on further abx for now (5) Dehydration: Code(s): E86.0 - Dehydration Status: Acute Assessment and Plan: hold diuretics and monitor (6) Diastolic heart failure: Code(s): I50.30 - Unspecified diastolic (congestive) heart failure Status: Acute Assessment and Plan: HFpEF, grade II diast, mild pulm HTN, mild AVS (7) Pleural effusion: Code(s): J90 - Pleural effusion, not elsewhere classified Status: Acute Assessment and Plan: previous thoracentesis performed, cytology neg for malignancy, gram stain and culture not ordered...? may need to repeat and cx fluid (8) Aortic valve stenosis: Code(s): I35.0 - Nonrheumatic aortic (valve) stenosis Status: Acute Assessment and Plan: AVR in 2014, now with recurrent AVS, monitor (9) Elevated troponin: Code(s): R77.8 - Other specified abnormalities of plasma proteins Status: Acute Assessment and Plan: unlikely to be ischemic related, recheck pending (10) Hyponatremia: Code(s): E87.1 - Hypo-osmolality and hyponatremia Status: Acute Assessment and Plan: stable near baseline at 130, has been running between 128-131 since 05/18, last normal 09/17 at 139, monitor (11) C. difficile diarrhea: Code(s): A04.72 - Enterocolitis due to Clostridium difficile, not specified as recurrent Status: Acute Assessment and Plan: cont oral vanc 125 mg daily for cdif prophylaxis while on IV vanc for MRSA bacteremia (12) Occult blood in stools: Code(s): R19.5 - Other fecal abnormalities Status: Acute Assessment and Plan: recheck FOBT, previously positive, thought to be from occult GI losses due to prior cdif infection and then chronic collagenous colitis, previously on budesonide, may need to restart this now that cdif is negative (13) Hypothyroidism, unspecified: Code(s): E03.9 - Hypothyroidism, unspecified Status: Acute Assessment and Plan: TSH 2.39 06/17, cont home meds (14) Hypokalemia: Code(s): E87.6 - Hypokalemia Status: Acute Assessment and Plan: 3 today, replace and recheck (15) Blood loss anemia: Code(s): D50.0 - Iron deficiency anemia secondary to blood loss (chronic) Status: Acute Assessment and Plan: recurrent blood loss anemia, occult GI losses? hgb down to 6.9 today, being transfused this morning required transfusions at both prior hospitalizations GI consult does not think malignancy as etiology due to prior colonoscopy WNL within 1 year GI consult pending again, may need heme/onc consultation if no GI source found? (16) Lactic acid acidosis: Code(s): E87.20 - Acidosis, unspecified Status: Acute Assessment an
[2022-07-26] MEDS: PANTOPRAZOLE SODIUM IV 40 MG VIAL IV PUSH ×2 (10:58→22:01)
[2022-07-26] MEDS: TUBING, BLOOD PLUM PUMP TUBING 1 EACH XX (11:11)
[2022-07-26] MEDS: VANCOMYCIN ORAL 125 MG/2.5 ML SYRUP PO (11:11)
[2022-07-26] MEDS: POTASSIUM CHLORIDE 20 MEQ TABLET 80 MEQ PO (11:11)
[2022-07-26] MEDS: SODIUM CHLORIDE 0.9% IV 250 ML 30 ML IV CONT (11:11)
[2022-07-26 11:35] LABS: Basophils Percent Auto 0.1 % (0.2-1.2); Eosinophils Percent Auto 0.2 % (0-4.4); Hematocrit 22.6 % (42.0-52.0); Hemoglobin 7.6 g/dL (14.0-18.0); Immature Granulocyte Absolute 0.11 K/mm3 (0.00-0.031); Immature Granulocyte Percent A 1.1 % (0-0.5); Immature Platelet Fraction Pct 7.4 % (0.9-11.2); Lymphocytes Absolute Auto 0.43 K/mm3 (0.9-3.2); Lymphocytes Percent Auto 4.2 % (18.3-44.2); Mean Corpuscular HGB Conc 33.6 g/dl (32-36); Mean Corpuscular Hemoglobin 33.2 pg (26-34); Mean Corpuscular Volume 98.7 fl (80-100); Mean Platelet Volume 11.2 fl (7.4-10.4); Monocytes Absolute Auto 0.7 K/mm3 (0.1-0.6); Neutrophils Percent Auto 87.4 % (45.5-73.1); Platelet Count Result 76 k/mm3 (150-375); Red Blood Count 2.29 M/mm3 (4.6-6.20); Red Cell Distribution Width 17.7 % (11.5-14.5); White Blood Count 10.3 K/mm3 (4.5-10.0)
[2022-07-26 11:49] LABS: Lactic Acid Reflex 1.8 mmol/L (0.7-2.0)
--- NOTE | 2022-07-26 13:46 | PM.CNPUL ---
Assessment and Plan Assessment and plan (1) Influenza: Code(s): J11.1 - Influenza due to unidentified influenza virus with other respiratory manifestations Status: Acute (2) ZORAN (acute kidney injury): Code(s): N17.9 - Acute kidney failure, unspecified Status: Acute (3) Encephalopathy acute: Code(s): G93.40 - Encephalopathy, unspecified Status: Acute (4) Diastolic heart failure: Code(s): I50.30 - Unspecified diastolic (congestive) heart failure Status: Acute (5) Pleural effusion: Code(s): J90 - Pleural effusion, not elsewhere classified Status: Acute Assessment and Plan: this 82-year-old man with history of congestive heart failure, left ventricular diastolic dysfunction, history of aortic valve replacement with prosthetic valve, recent persistent MRSA bacteremia with negative YOLIS for left-sided endocarditis, history of atrial fibrillation chronically on anticoagulation has had chronic symmetrical pleural effusions bilaterally. these effusions have increased in size over the last month. Given the symmetrical nature of the effusions and recent history of congestive heart failure and acute kidney injury, it is very likely that the effusions are related to congestive heart failure/fluid overload. however the patient will need thoracentesis to exclude complicated parapneumonic effusions given the elevated WBC on last fluid analysis. The chest CT showed associated lung atelectasis related to pleural effusions but no clear-cut evidence of pneumonia. as stated, the history of persistent MRSA bacteremia during previous hospitalization raises the question of intravascular sepsis like prosthetic valve endocarditis. patient had blood cultures drawn over the last 24 hours. He has been on vancomycin IV. (6) Renal failure: Code(s): N19 - Unspecified kidney failure Status: Acute (7) S/P aortic valve replacement with bioprosthetic valve: Code(s): Z95.3 - Presence of xenogenic heart valve Status: Acute (8) CHF (congestive heart failure): Code(s): I50.9 - Heart failure, unspecified Status: Acute History of Present Illness History of Present Illness Consult date: 07/26/22 Chief complaint: AMS Narrative: this 82-year-old man presented with acute mental status changes. The patient has multiple medical problems including aortic valve replacement, history of atrial fibrillation, diastolic heart failure, hypertension, BPH, hypothyroidism, chronic collagenous colitis. The patient has multiple hospitalizations over the last 2 months. He has been treated for persisting bacteremia with MRSA, acute kidney injury, atrial fibrillation with rapid ventricular response as well as bilateral pleural effusions. I was asked to see the patient regarding bilateral pleural effusions. Patient was [facility] to [facility]. He returned to the emergency room because of acute mental status changes. Over the last 2 months he was found to have a persistent bacteremia with MRSA on 3 occasions. The possibility of a intravascular sepsis related to prosthetic valve endocarditis endocarditis was entertained and the patient underwent YOLIS that showed no vegetations. over the last week the patient has had a cough which is mostly for dry. There has been no significant change in his chronic shortness of breath. He has no chest pain palpitations orthopnea hemoptysis night sweats fever or chills. He has had chronic lower extremity edema that has improved over the last week. Review of previous chest imaging studies showed that on June [address] showed small symmetrical pleural effusions bilaterally. On a subsequent chest CT study done on July 08 the pleural effusions had increased in size but were again symmetrical and bilateral. Further increase in the size of pleural effusion with associated atelectasis was noted on the last CT study done today. Amisha
--- NOTE | 2022-07-26 15:17 | WPDGICN ---
Assessment and Plan Assessment and plan (1) Acute on chronic anemia: Code(s): D64.9 - Anemia, unspecified Status: Acute Assessment and Plan: this is probably multifactorial (renal disease, also he has thrombocytopenia and using blood thinner because cardiovascular disease- recommend to consult hematology), no need to repeat colonoscopy unless obvious bleeding had colonoscopy about 1 year ago and repeat fobt negative (after C diff was treated) patient denies overt gib (2) Influenza: Code(s): J11.1 - Influenza due to unidentified influenza virus with other respiratory manifestations Status: Acute Assessment and Plan: main reason of admission and confusion better now (3) Encephalopathy acute: Code(s): G93.40 - Encephalopathy, unspecified Status: Acute Assessment and Plan: resolved (4) Chronic anticoagulation: Code(s): Z79.01 - residential (current) use of anticoagulants Status: Acute (5) Chronic idiopathic thrombocytopenia: Code(s): D69.3 - Immune thrombocytopenic purpura Status: Acute Assessment and Plan: may need hematology consult (6) Pleural effusion: Code(s): J90 - Pleural effusion, not elsewhere classified Status: Acute Assessment and Plan: treated in previous hospitalization with thoracentesis (7) ZORAN (acute kidney injury): Code(s): N17.9 - Acute kidney failure, unspecified Status: Acute GI Consult Note Consult date/time: 07/26/22 15:17 Reason for consult: acute on chronic anemia HPI: Naga De Leon is a 82 year old male with multiple medical problems who was just recently discharged from the hospital and we have seen him because recurrent anemia but about 1 year ago had seen Dr. Sanchez in his office because loose stools (h/o microscopic colitis who has been on budesonide previously) and subsequently had a colonoscopy by Dr. [place]?which was entirely normal (both patient and remember that colonoscopy was about 1 year ago). He was initially in the hospital with MRSA bacteremia that was treated, also urinary infection and hematuria seeing by urology, HF and A fib on eliquis, CKD. Also he had thrombocytopenia and required blood transfusion but never had overt gib. During first hospitalization had C diff and occult blood in stool was positive but treated with antibiotic, during recent hospitalization C diff was negative and FOBT negative. He is here again because got confused and disoriented, this time diagnosed with influenza. Now mental status back to his baseline, denies rectal bleeding, bowel movement at baseline. Review of Systems Constitutional: Comments: weakness Eyes: Eyes: Denies blurry vision ENT: Reports Normal hearing present Cardiovascular: Cardiovascular: Denies chest pain Respiratory: Respiratory: Denies hemoptysis Gastrointestinal: Gastrointestinal: Denies abdominal pain Genitourinary: Genitourinary: Denies hematuria Integumentary/Breasts: Skin/Breast: Denies rash Neurologic: Reports confusion Psychiatric: Psychiatric: Reports confusion [facility] Past Medical History Medical History (Updated 07/26/22 @ 10:52 by Berna Perales, ) Anemia Aortic valve stenosis Atrial fibrillation Atrial fibrillation with RVR Occurred during admission May 2022 due to sepsis Basal cell carcinoma Blood loss anemia BPH (benign prostatic hyperplasia) Chronic idiopathic thrombocytopenia Collagenous colitis Resulting in chronic loose stools Coronary artery disease Diastolic dysfunction Echocardiogram 04/2022: EF 70% grade 1 diastolic dysfunction, aortic valve prosthesis with good function, moderate pulmonary hypertension Diastolic heart failure Essential hypertension Gastroesophageal reflux Hyponatremia Hypothyroidism, unspecified Insomnia Kidney stones Latent tuberculosis Treated with INH in 1959 Mild persistent asthma without complication Mixed hyperlipidemia Th
--- NOTE | 2022-07-26 16:51 | PM.CNNEP ---
Assessment and Plan Assessment and plan (1) ZORAN (acute kidney injury): Code(s): N17.9 - Acute kidney failure, unspecified Status: Acute Assessment and Plan: the patient has acute kidney injury. It seems that his baseline creatinine is around 1.3. Here the creatinine is 1.7. Perhaps he is pre renal. He still does have some swelling and has bilateral pleural effusion so total-body hamilton he is fluid overloaded. He does have pulmonary hypertension and diastolic dysfunction which could contribute to some of the fluid issues. His albumin level is okay. Perhaps his normal creatinine is an effect of the fluid overload and dilution and his true renal function is worse than it appears by the serum creatinine. Either way it sounds like he needs more fluid off. Will continue diuretics. (2) Hyponatremia: Code(s): E87.1 - Hypo-osmolality and hyponatremia Status: Acute Assessment and Plan: His sodium level is low. This is most likely due to pre renal factors and kidney disease. Will watch the sodium level and engage a fluid restriction if needed. (3) Influenza A: Code(s): J10.1 - Influenza due to other identified influenza virus with other respiratory manifestations Status: Acute Assessment and Plan: The patient is getting supportive care (4) Anemia: Code(s): D64.9 - Anemia, unspecified Status: Acute Assessment and Plan: hemoglobin is low. Stool guaiacs have been ordered. A blood transfusion has been ordered. Will check a reticulocyte count as well. Consider EPO if the creatinine starts to rise. (5) Hypokalemia: Code(s): E87.6 - Hypokalemia Status: Acute Assessment and Plan: Potassium is low. He received potassium chloride. Will check another creatinine in the morning. (6) Lactic acid acidosis: Code(s): E87.20 - Acidosis, unspecified Status: Acute Assessment and Plan: This was high when he came in but is okay last check. (7) Atrial fibrillation: Code(s): I48.91 - Unspecified atrial fibrillation Status: Acute Assessment and Plan: His heart rate is under good control he is in sinus rhythm right now. (8) Aortic valve stenosis: Code(s): I35.0 - Nonrheumatic aortic (valve) stenosis Status: Acute Assessment and Plan: He has mild aortic stenosis on his echo. History of Present Illness Reason for Consult Consult date: 07/26/22 Chief Complaint Chief complaint: AMS History of Present Illness Narrative: Naga is a very pleasant [age] year old gentleman who has multiple medical problems including C diff colitis, sepsis, edema, hyponatremia, acute kidney injury, hypertension, diabetes, hyperlipidemia, latent TB, kidney stones, basal cell carcinoma, BPH, coronary disease status post aortic valve replacement, diastolic dysfunction, moderate pulmonary hypertension, GERD, and hypothyroidism. . He has been in and out of the hospital for the last couple of months. At first he was Admitted for changes in mental status. He turned out to have urosepsis and was in the ICU for a long time. He eventually improved and was moved out to the floor. At the time he also had atrial fibrillation with rapid ventricular rate and this was managed by Cardiology. He also developed diarrhea which ended up being C diff. He developed renal insufficiency which was felt to be due to the C diff , possibly vancomycin, and dehydration. he was eventually stabilized and discharged. A few days later he came back into the hospital with lethargy. He turned out to have UTI. He was treated with antibiotics. His creatinine got a little worse and then better down to about 1.3. He was swollen and eventually was given diuretics and improved. So at hyponatremia so fluid restriction was begun. By discharge the patient's creatinine was 1.3-1.5 and his sodium level was stable. Two days a
[2022-07-26 17:28] LABS: Glucose Point of Care 151 mg/dl (65-105)
[2022-07-26 18:25] LABS: Immature Reticulocyte Fraction 21.6 % (3.0-15.9); Reticulocyte Hemoglobin Conten 40.1 pg (28.2-35.7); Reticulocyte Percent 2.59 % (0.7-4.3); Reticulocytes Absolute 0.06 B/L (32.2-175.7)
[2022-07-26 19:14] LABS: Immunochemical Fecal Occult Bl Negative (N)
[2022-07-26 19:15] LABS: IFOB Positive Control Positive
[2022-07-26 20:00] LABS: Glucose Point of Care 130 mg/dl (65-105)
[2022-07-26 22:42] LABS: Creatinine Urine 50.1 mg/dL; Total Protein Urine Random 61 mg/dL; Ur Ttl Prot Creatinine Ratio 1.22 mg/mg (0-0.20); Urea Random Urine 696 MG/DL
[2022-07-26 23:13] LABS: Sodium Urine Random 46 meq/L
[2022-07-27] VITALS (16 sets, daily range): BP systolic 94–110; BP diastolic 51–67; PULSE 69–91; RESP 16–20; TEMP 36.2–36.5; O2SAT 94–100
--- NOTE | 2022-07-27 | ECHOL_ITS ---
Patient Info Name: Naga De Leon Age: 82 years : 1940 Gender: Male Ht: 67 in Wt: 169 lbs BSA: 1.92 m2 HR: 76 bpm BP: 101 / 51 mmHg Heart Rhythm: Sinus Rhythm Exam Date: 07/27/2022 2:12 PM Exam Location: [facility] Patient Status: Inpatient Admit Date: 07/25/2022 Staff Ordering Physician: Berna Perales DO Park Aide: Khanh Ngo RDCS, RT Attending Provider: Berna Perales DO Referring Physician: Diaz TENORIO; Exam Type: CA echo limited Study Info Indications R01.1 - Cardiac murmur, unspecified - Bacteremia Limited two-dimensional transthoracic echocardiogram is performed. Summary 1. Limited study done for evaluation of new murmur. 2. Left ventricular systolic function is normal, estimated at 60-65%. 3. Left atrial chamber dimension is moderately enlarged. 4. Bioprosthetic aortic valve noted, however, not well visualized. 5. The mitral valve annulus is severely calcified. 6. There is mild mitral valve stenosis. 7. There is moderate mitral valve regurgitation. 8. There is mild tricuspid valve regurgitation. 9. Cannot rule out valvular vegetations. Left Ventricle Left ventricular chamber dimension is normal. Left ventricular systolic function is normal, estimated at 60-65%. Right Ventricle Right ventricular chamber dimension is normal. Left Atria Left atrial chamber dimension is moderately enlarged. Right Atria Right atrial chamber dimension is normal. Atrial Septum Intact interatrial septum visualized by color flow imaging. Aortic Valve Bioprosthetic aortic valve noted, however, not well visualized. There is no regurgitation of the not well visualized prosthetic aortic valve. Pulmonic Valve The pulmonic valve is not well visualized. Mitral Valve There is mild mitral valve stenosis. There is moderate mitral valve regurgitation. The mitral valve annulus is severely calcified. Tricuspid Valve There is mild tricuspid valve regurgitation. Pericardium/Pleural There is no pericardial effusion. Aorta The aortic root size at the sinus of Valsalva is not well visualized. Report Signatures
[2022-07-27] MEDS: IPRATROPIUM BR 0.02% INH SOLN 0.5 MG/2.5 ML VIAL INHALATION ×4 (02:23→21:27)
[2022-07-27] MEDS: CENTRAL LINE FLUSH 10 ML IV PUSH ×3 (05:38→20:55)
[2022-07-27] MEDS: LEVOTHYROXINE SODIUM 50 MCG TABLET PO (05:38)
[2022-07-27 06:03] LABS: Eosinophils Absolute Auto 0.1 K/mm3 (0-0.3); Eosinophils Percent Auto 1.1 % (0-4.4); Hematocrit 21.3 % (42.0-52.0); Immature Granulocyte Absolute 0.08 K/mm3 (0.00-0.031); Immature Granulocyte Percent A 1.1 % (0-0.5); Immature Platelet Fraction Pct 6.6 % (0.9-11.2); Lymphocytes Absolute Auto 0.46 K/mm3 (0.9-3.2); Lymphocytes Percent Auto 6.5 % (18.3-44.2); Mean Corpuscular HGB Conc 33.3 g/dl (32-36); Mean Corpuscular Hemoglobin 32.1 pg (26-34); Mean Corpuscular Volume 96.4 fl (80-100); Mean Platelet Volume 11.6 fl (7.4-10.4); Monocytes Absolute Auto 0.5 K/mm3 (0.1-0.6); Monocytes Percent Auto 6.5 % (2.6-8.5); Neutrophils Percent Auto 84.8 % (45.5-73.1); Platelet Count Result 50 k/mm3 (150-375); Red Blood Count 2.21 M/mm3 (4.6-6.20); Red Cell Distribution Width 17.9 % (11.5-14.5); White Blood Count 7.1 K/mm3 (4.5-10.0)
[2022-07-27 06:09] LABS: Hemoglobin 7.1 g/dL (14.0-18.0)
[2022-07-27 06:13] LABS: Alanine Aminotransferase 25 U/L (6-50); Albumin Level 2.9 g/dL (3.5-5.1); Alkaline Phosphatase 66 U/L (38-126); Anion Gap 4 mmol/L (8-16); Aspartate Amino Transferase 26 U/L (17-59); Bilirubin,Total 1.6 mg/dL (0.2-1.3); Blood Urea Nitrogen 58 mg/dL (9-20); Carbon Dioxide 32 mmol/L (22-30); Chloride 97 mmol/L (98-107); Estimated CRCL calculation 30 ml/min; Estimated Glomerular Filt Rate 41; Glucose 91 mg/dL (65-110); Potassium 3.9 mmol/L (3.4-5.0); Sodium 133 mmol/L (137-145)
[2022-07-27 08:20] LABS: Glucose Point of Care 93 mg/dl (65-105)
[2022-07-27] MEDS: VANCOMYCIN ORAL 125 MG/2.5 ML SYRUP PO (08:33)
[2022-07-27] MEDS: SACCHAROMYCES BOULARDII 250 MG CAPSULE PO ×3 (08:33→17:47)
[2022-07-27] MEDS: FLUTICASONE PROPIONATE 0.05% NA SPR 16 GM BTL (*BKC) 2 SPRAY NASAL (08:33)
[2022-07-27] MEDS: METOPROLOL SUCCINATE EXT REL 50 MG TABCR PO ×2 (08:33→20:54)
[2022-07-27] MEDS: BENZONATATE 100 MG CAPSULE 200 MG PO ×3 (08:33→17:47)
[2022-07-27] MEDS: FAMOTIDINE 20 MG TABLET PO ×2 (08:34→20:54)
[2022-07-27] MEDS: SOLIFENACIN 5 MG TABLET 10 MG PO (08:34)
[2022-07-27] MEDS: MAGNESIUM OXIDE 200 MG TABLET PO (08:34)
[2022-07-27] MEDS: MIDODRINE HCL 2.5 MG TABLET PO ×3 (08:34→17:47)
[2022-07-27] MEDS: BUMETANIDE 1 MG TABLET 2 MG PO ×2 (08:34→17:47)
[2022-07-27] MEDS: LIDOCAINE 5% PATCH 2 PATCH TRANSDERM (08:35)
[2022-07-27] MEDS: PANTOPRAZOLE SODIUM IV 40 MG VIAL IV PUSH ×2 (08:35→20:54)
[2022-07-27] MEDS: MUPIROCIN 2% OINT 22 GM TUBE 1 APPLIC EACH NARE ×2 (08:35→20:54)
[2022-07-27] MEDS: CALCIUM CARBONATE (OSCAL) 500 MG TABLET PO (08:35)
[2022-07-27] MEDS: OSELTAMIVIR PHOSPHATE 30 MG CAPSULE PO ×2 (08:35→20:54)
[2022-07-27] MEDS: HYDROCORTISONE/PRAMOX 1% FOAM 10 GM CAN 1 APPLIC RECTAL (08:36)
[2022-07-27] MEDS: metOLazone 5 MG TABLET PO (08:36)
--- NOTE | 2022-07-27 09:01 | PM.IMPN ---
Progress Note: A&P Assessment and Plan (1) Influenza: Code(s): J11.1 - Influenza due to unidentified influenza virus with other respiratory manifestations Status: Acute Assessment and Plan: Pt found to be positive for influenza A tamiflu started on admission 07/25, end date 07/29/22 Respiratory isolation precautions (2) ZORAN (acute kidney injury): Code(s): N17.9 - Acute kidney failure, unspecified Status: Acute Assessment and Plan: Improving off diuretics, monitor, appreciate nephrology baseline appears to be 0.8 but has been consistently over 1.3 since 06/21/22 (3) Encephalopathy acute: Code(s): G93.40 - Encephalopathy, unspecified Status: Acute Assessment and Plan: Resolved (4) Leukocytosis: Code(s): D72.829 - Elevated white blood cell count, unspecified Status: Acute Assessment and Plan: Suspect secondary to influenza, monitor (5) Dehydration: Code(s): E86.0 - Dehydration Status: Acute Assessment and Plan: hold diuretics and monitor (6) Diastolic heart failure: Code(s): I50.30 - Unspecified diastolic (congestive) heart failure Status: Acute Assessment and Plan: HFpEF, grade II diast, mild pulm HTN, mild AVS (7) Pleural effusion: Code(s): J90 - Pleural effusion, not elsewhere classified Status: Acute Assessment and Plan: previous thoracentesis performed, cytology neg for malignancy, gram stain and culture not ordered...? may need to repeat and cx fluid (8) Aortic valve stenosis: Code(s): I35.0 - Nonrheumatic aortic (valve) stenosis Status: Acute Assessment and Plan: AVR in 2013, now with recurrent AVS, monitor (9) Elevated troponin: Code(s): R77.8 - Other specified abnormalities of plasma proteins Status: Acute Assessment and Plan: unlikely to be ischemic related, fluctuating, will discontinue monitor (10) Hyponatremia: Code(s): E87.1 - Hypo-osmolality and hyponatremia Status: Acute Assessment and Plan: Improved to 133 today (11) C. difficile diarrhea: Code(s): A04.72 - Enterocolitis due to Clostridium difficile, not specified as recurrent Status: Acute Assessment and Plan: cont oral vanc 125 mg daily for cdif prophylaxis while on IV vanc for MRSA bacteremia (12) Occult blood in stools: Code(s): R19.5 - Other fecal abnormalities Status: Acute Assessment and Plan: recheck FOBT, previously positive, thought to be from occult GI losses due to prior cdif infection and then chronic collagenous colitis, previously on budesonide, may need to restart this now that cdif is negative (13) Hypothyroidism, unspecified: Code(s): E03.9 - Hypothyroidism, unspecified Status: Acute Assessment and Plan: TSH 2.39 06/17, cont home meds (14) Hypokalemia: Code(s): E87.6 - Hypokalemia Status: Acute Assessment and Plan: 3 today, replace and recheck (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 hgb down to 6.9 today, being transfused this morning required transfusions at both prior hospitalizations GI consult does not think malignancy as etiology due to prior colonoscopy WNL within 1 year GI consult completed, will consult heme/onc (16) Lactic acid acidosis: Code(s): E87.20 - Acidosis, unspecified Status: Acute Assessment and Plan: resolved with holding of diuretics (17) Heart murmur: Code(s): R01.1 - Cardiac murmur, unspecified Status: Acute Assessment and Plan: Appears new, loud systolic ejection murmur check limited echo, could be a flow murmur from anemia? Plan recurrent cdif-cont oral vanc prophylaxis while on IV abx MRSA bacteremia-cont IV vanc for 21 day course, en
--- NOTE | 2022-07-27 09:28 | PM.PNPUL ---
Progress Note: A&P Assessment and Plan (1) Influenza A: Code(s): J10.1 - Influenza due to other identified influenza virus with other respiratory manifestations Status: Acute (2) Pleural effusion: Code(s): J90 - Pleural effusion, not elsewhere classified Status: Acute Assessment and Plan: this 82-year-old man with? history of congestive heart failure, left ventricular diastolic dysfunction, history of aortic valve replacement with? prosthetic valve, recent? persistent? MRSA bacteremia with? negative YOLIS for left-sided endocarditis,? history of atrial fibrillation chronically on anticoagulation has had? chronic symmetrical pleural effusions bilaterally.? these effusions have increased in size over the last month.? Given the symmetrical nature of the effusions and recent history of congestive heart failure and acute kidney injury,? it is very likely that the effusions are related to congestive heart failure/fluid overload.? patient has been diagnosed with influenza. Chest CT showed moderately large pleural effusions bilaterally with associated atelectasis but no new infiltrates to suggest new pneumonia. He remains on room air with near 100% saturation. He has no shortness of breath or any other symptoms to suggest lower respiratory tract infection. Regarding pleural effusions the patient will need a repeat thoracentesis to fully characterize type of pleural effusions. (3) S/P aortic valve replacement with bioprosthetic valve: Code(s): Z95.3 - Presence of xenogenic heart valve Status: Acute (4) CHF (congestive heart failure): Code(s): I50.9 - Heart failure, unspecified Status: Acute (5) ZORAN (acute kidney injury): Code(s): N17.9 - Acute kidney failure, unspecified Status: Acute (6) Atrial fibrillation: Code(s): I48.91 - Unspecified atrial fibrillation Status: Acute Subjective Date/time seen: 07/27/22 09:28 Patient has no new respiratory symptoms. He has been afebrile. Has had intermittent cough but no sputum production. Remains on room air with O2 sat near 100%. Review of Systems Review of Systems: patient sleeps on 3 pillows because of back pain. He has had chronic shortness of breath. He has no chest pain or palpitations. He has had soft bowel movements. Has no urinary complaints. He has got chronic lower extremity edema. He has no history of previous lung disease. He used to smoke for many years but quit approximately 20 years ago. Exam Narrative: GENERAL APPEARANCE: Well developed, well nourished, alert and cooperative, Appears to be in no apparent respiratory distress while breathing ambient air SKIN: Inspection of the skin reveals no rashes, ulcerations or petechiae. HEENT: Sclerae anicteric and conjunctivae pink and moist. Extraocular movements were intact and pupils were equal, round,. NECK: Supple. There was no thyroid enlargement, and no tenderness, or masses were felt. CHEST: Normal AP diameter and normal contour without any kyphoscoliosis. LUNGS: Auscultation of the lungs revealed decreased breath sounds at bases posteriorly, no wheezing CARDIAC: There was a regular rate and rhythm without any murmurs. ABDOMEN: Soft and nontender with normal bowel sounds. There was no organomegaly. LYMPH NODES: No lymphadenopathy was appreciated in the neck. EXTREMITIES: No cyanosis, clubbing; trace pedal edema. NEUROLOGIC: Alert and oriented x 3. Normal affect. Objective Data Vital Signs Vital Signs: Vital Signs - 24 hr 07/26/22 10:00 07/26/22 10:50 07/26/22 11:05 Temperature 36.1 C L 36.6 C Pulse Rate 74 77 77 Respiratory Rate 18 19 Blood Pressure 110/58 L 101/58 L Pulse Oximetry 90 93 Oxygen Delivery 07/26/22 12:05 07/26/22 12:05 07/26/22 12:45 Temperature 36.6 C 36.6 C 36.4 C Pulse Rate 84 84 88 Respiratory Rate 20 20 18 Blood Pressure 96/68 L 96/68 L 101/61 Pulse Oximetry 100 100 91 Oxygen Delivery 07/26/22
[2022-07-27] MEDS: ACETAMINOPHEN 500 MG TABLET 1000 MG PO (09:40)
[2022-07-27] MEDS: ALBUTEROL SULFATE (*SP) AEROSOL 1 PUFF INHALATION ×2 (09:50→14:42)
--- NOTE | 2022-07-27 12:47 | PDONCCN ---
HPI - Date of Consult Date/Time: 07/27/22 12:47 Requesting Physician: Berna Perales DO Primary Care Provider: Doris Ingram MD - Consult Narrative Reason for consult: Anemia and thrombocytopenia Narrative: Naga De Leon is a 82 year old male with history of atrial fibrillation, coronary artery disease and chronic ITP based on the chart review. He came into the hospital with mental status changes. CT abdomen and pelvis showed no evidence of lymphadenopathy and splenomegaly. Patient last colonoscopy was more than 1 year ago. Hemoccult stool test came back negative for bleeding. Labs showed hemoglobin of 6.9 with elevated creatinine of 1.7. He denies any previous history of kidney disease. He has been complaining of tiredness and fatigue. He denies any bleeding including melena hematochezia. He denies any new lung sounds are lymphadenopathy. Patient received 1 unit of packed red blood cell yesterday. Review of Systems - Review of Systems All systems reviewed & are unremarkable except as noted in HPI and bel - Neurologic Reports system reviewed and no additional complaints, except as documented, Reports hearing normal, Reports confusion [facility] Medical History: Medical History (Last Updated 07/26/22 @ 17:05 by Gio Lozano MD) Anemia Aortic valve stenosis Atrial fibrillation Atrial fibrillation with RVR Occurred during admission May 2022 due to sepsis Basal cell carcinoma Blood loss anemia BPH (benign prostatic hyperplasia) Chronic idiopathic thrombocytopenia Collagenous colitis Resulting in chronic loose stools Coronary artery disease Diastolic dysfunction Echocardiogram 04/2022: EF 70% grade 1 diastolic dysfunction, aortic valve prosthesis with good function, moderate pulmonary hypertension Diastolic heart failure Essential hypertension Gastroesophageal reflux Hyponatremia Hypothyroidism, unspecified Influenza A Insomnia Kidney stones Latent tuberculosis Treated with INH in 1959 Mild persistent asthma without complication Mixed hyperlipidemia Thrombocytopenia Surgical History: Surgical History (Last Reviewed 07/26/22 @ 17:01 by Gio Lozano MD) H/O aortic valve replacement Onset Date: 2013 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 Substance Use: Substance use: never Substance use type: does not use Other substance usage details: 1 cocktail/day when he was well Others: Spiritual care concerns: No Agree to blood products: Yes Smoking Status: Smoking status: Former smoker Tobacco type: cigarettes Second hand tobacco smoke exposure: No Smoking end date: 06/23/92 Approximate Smoking End Date: 2000 Smoking Pack-years: Smoking packs per day: 1 Smoking cigarettes per day: 20.0 Years smoked: 40 Smoking pack-years: 30.00 Comments: Additional smoking assessment comments: Between 3 cigarettes and 4 packs a day Social Determinants of Health: Has the Lack of Transportation Kept You From Medical Appointments or From Getting Medications?: No Within the Past 12 Months, Were You Worried Whether Your Food Would Run Out Before You Got Money to Buy More?: Never True What is Your Housing Situation Today?: I Have Housing A
[2022-07-27] MEDS: HYDROcodone/acetaminophen (*CRX) 5-325 MG TABLET 1 TAB PO ×2 (12:56→20:56)
[2022-07-27 13:06] LABS: Glucose Point of Care 156 mg/dl (65-105)
--- NOTE | 2022-07-27 14:21 | WPDGIPROGNO ---
Progress Note: A&P Assessment and Plan (1) Acute on chronic anemia: Code(s): D64.9 - Anemia, unspecified Status: Acute Assessment and Plan: no overt gib and recent occult blood in stool negative colonoscopy about 1 year ago patient and denies any sort of gib hematology on board and will complete work up for other source of anemia will follow from [place], call if question (2) Influenza A: Code(s): J10.1 - Influenza due to other identified influenza virus with other respiratory manifestations Status: Acute Assessment and Plan: new diagnosis (3) ZORAN (acute kidney injury): Code(s): N17.9 - Acute kidney failure, unspecified Status: Acute (4) Chronic anticoagulation: Code(s): Z79.01 - half-way (current) use of anticoagulants Status: Acute Assessment and Plan: on hold (5) Pleural effusion: Code(s): J90 - Pleural effusion, not elsewhere classified Status: Acute Assessment and Plan: by pulmonary Subjective Date/time seen: 07/27/22 14:21 Interval history: just feeling tired, denies any gib. He is eating Review of Systems Review of Systems: All systems reviewed & are unremarkable except as noted in HPI and below Exam Narrative: General: Chronically ill-appearing weak male, alert and oriented per baseline Eyes: normal and reactive HEENT: Atraumatic, normocephalic, mucous membranes moist Neck: supple CV: Regular rate and rhythm, S1, S2, +GERMAN Lungs: Clear to auscultation bilaterally Abdomen: Soft, nontender, nondistended Extremities: Normal to inspection, 2+ nonpitting edema bilateral lower extremities Skin: No rashes noted, no lesions or wounds seen Neuro: non-focal Objective Data Vital Signs Vital Signs: Vital Signs - 24 hr 07/26/22 14:26 07/26/22 16:00 07/26/22 16:00 Temperature Pulse Rate 77 79 Respiratory Rate 20 Blood Pressure Pulse Oximetry Oxygen Delivery Room Air 07/26/22 16:00 07/26/22 18:00 07/26/22 19:45 Temperature 96.7 F L Pulse Rate 74 73 72 Respiratory Rate 18 18 Blood Pressure 97/50 L Pulse Oximetry 100 Oxygen Delivery 07/26/22 19:54 07/26/22 20:00 07/26/22 20:00 Temperature 97.9 F Pulse Rate 70 72 Respiratory Rate 18 18 Blood Pressure 105/59 L Pulse Oximetry 100 Oxygen Delivery Room Air 07/26/22 22:21 07/26/22 23:05 07/26/22 23:45 Temperature 97.6 F Pulse Rate 75 72 Respiratory Rate 18 Blood Pressure 109/64 Pulse Oximetry 94 99 Oxygen Delivery Room Air 07/27/22 00:00 07/26/22 20:00 07/26/22 22:00 Temperature Pulse Rate 74 84 Respiratory Rate Blood Pressure Pulse Oximetry Oxygen Delivery Room Air 07/27/22 00:00 07/27/22 02:00 07/27/22 02:23 Temperature Pulse Rate 69 75 72 Respiratory Rate 20 Blood Pressure Pulse Oximetry Oxygen Delivery 07/27/22 02:32 07/27/22 04:00 07/27/22 04:00 Temperature 97.6 F Pulse Rate 72 76 76 Respiratory Rate 20 18 Blood Pressure 106/67 Pulse Oximetry 94 Oxygen Delivery 07/27/22 04:00 07/27/22 06:00 07/27/22 08:00 Temperature 97.7 F Pulse Rate 76 77 Respiratory Rate 16 Blood Pressure 110/55 L Pulse Oximetry 100 Oxygen Delivery Room Air 07/27/22 08:00 07/27/22 08:00 07/27/22 10:00 Temperature Pulse Rate 76 73 Respiratory Rate Blood Pressure Pulse Oximetry Oxygen Delivery Room Air 07/27/22 12:00 07/27/22 12:00 Temperature 97.2 F L Pulse Rate 74 76 Respiratory Rate 18 Blood Pressure 101/51 L Pulse Oximetry 98 Oxygen Delivery Intake/Output Intake/Output: Intake & Output 07/24/22 07/25/22 07/26/22 07/27/22 23:59 23:59 23:59 23:59 Intake Total 1750 480 Output Total 400 1791 600 Balance -400 -41 -120 Meds/Results Medications: Active Medications Generic Name Dose Route Start Last Admin Trade Name Freq PRN Reason Stop Dose Admin Acetaminophen 1,000 mg 11
--- NOTE | 2022-07-27 16:56 | PM.PNNEP ---
Progress Note: A&P Assessment and Plan (1) ZORAN (acute kidney injury): Code(s): N17.9 - Acute kidney failure, unspecified Status: Acute Assessment and Plan: the patient has acute kidney injury. It seems that his baseline creatinine is around 1.3. today the creatinine is 1.6, down from admission value of 1.7. He may need a higher creatinine to keep the fluid off. will continue diuretics for now. (2) Hyponatremia: Code(s): E87.1 - Hypo-osmolality and hyponatremia Status: Acute Assessment and Plan: His sodium level is low. This is most likely due to pre renal factors and kidney disease. fluid restrict to 1500 (3) Influenza A: Code(s): J10.1 - Influenza due to other identified influenza virus with other respiratory manifestations Status: Acute Assessment and Plan: The patient is getting supportive care (4) Anemia: Code(s): D64.9 - Anemia, unspecified Status: Acute Assessment and Plan: hemoglobin is low. Stool guaiacs have been ordered. A blood transfusion has been ordered. retic is so-so. will start epo (5) Hypokalemia: Code(s): E87.6 - Hypokalemia Status: Acute Assessment and Plan: Potassium is low. He received potassium chloride. Will check another creatinine in the morning. (6) Lactic acid acidosis: Code(s): E87.20 - Acidosis, unspecified Status: Acute Assessment and Plan: resolved. (7) Atrial fibrillation: Code(s): I48.91 - Unspecified atrial fibrillation Status: Acute Assessment and Plan: His heart rate is under good control he is in sinus rhythm right now. (8) Aortic valve stenosis: Code(s): I35.0 - Nonrheumatic aortic (valve) stenosis Status: Acute Assessment and Plan: He has mild aortic stenosis on his echo. Subjective Date/time seen: 07/27/22 16:56 Interval history: alert. in room. we discussed case pt is feeling okay. no cp or sob. some swelling. Review of Systems Cardiovascular: Cardiovascular: Reports no additional cardiovascular complaints Respiratory: Respiratory: Reports no additional respiratory complaints Gastrointestinal: Gastrointestinal: Reports no additional gastrointestinal complaints Genitourinary: Genitourinary: Reports no additional male genitourinary complaints Exam Narrative: WDWN in NAD skin no rash head ncat lungs clear cor reg no rub abd BS+ nontender and soft ext 1+ edema. Objective Data Vital Signs Vital Signs: Vital Signs - 24 hr 07/26/22 18:00 07/26/22 19:45 07/26/22 19:54 Temperature Pulse Rate 73 72 70 Respiratory Rate 18 18 Blood Pressure Pulse Oximetry Oxygen Delivery 07/26/22 20:00 07/26/22 20:00 07/26/22 22:21 Temperature 97.9 F Pulse Rate 72 Respiratory Rate 18 Blood Pressure 105/59 L Pulse Oximetry 100 94 Oxygen Delivery Room Air Room Air 07/26/22 23:05 07/26/22 23:45 07/27/22 00:00 Temperature 97.6 F Pulse Rate 75 72 Respiratory Rate 18 Blood Pressure 109/64 Pulse Oximetry 99 Oxygen Delivery Room Air 07/26/22 20:00 07/26/22 22:00 07/27/22 00:00 Temperature Pulse Rate 74 84 69 Respiratory Rate Blood Pressure Pulse Oximetry Oxygen Delivery 07/27/22 02:00 07/27/22 02:23 07/27/22 02:32 Temperature Pulse Rate 75 72 72 Respiratory Rate 20 20 Blood Pressure Pulse Oximetry Oxygen Delivery 07/27/22 04:00 07/27/22 04:00 07/27/22 04:00 Temperature 97.6 F Pulse Rate 76 76 Respiratory Rate 18 Blood Pressure 106/67 Pulse Oximetry 94 Oxygen Delivery Room Air 07/27/22 06:00 07/27/22 08:00 07/27/22 08:00 Temperature 97.7 F Pulse Rate 76 77 Respiratory Rate 16 Blood Pressure 110/55 L Pulse Oximetry 100 Oxygen Delivery Room Air 07/27/22 08:00 07/27/22 10:00 07/27/22 12:00 Temperature 97.2 F L Pulse Rate 76 73 74 Respiratory Ra
[2022-07-27] MEDS: EPOETIN ALFA-EPBX 10,000 UNITS/ML VIAL 10000 UNITS SUB-Q (17:48)
[2022-07-27 17:54] LABS: Glucose Point of Care 105 mg/dl (65-105)
[2022-07-27 20:47] LABS: Glucose Point of Care 121 mg/dl (65-105)
[2022-07-27] MEDS: ATORVASTATIN 10 MG TABLET PO (20:54)
[2022-07-27] MEDS: TAMSULOSIN HCL 0.4 MG CAPSULE PO (20:55)
[2022-07-27] MEDS: ZOLPIDEM TARTRATE (*CRX) 5 MG TABLET 10 MG PO (20:56)
[2022-07-28] VITALS (15 sets, daily range): BP systolic 96–102; BP diastolic 52–58; PULSE 73–82; RESP 16–20; TEMP 35.8–36.7; O2SAT 94–99
[2022-07-28] MEDS: IPRATROPIUM BR 0.02% INH SOLN 0.5 MG/2.5 ML VIAL INHALATION ×3 (02:30→21:58)
--- NOTE | 2022-07-28 03:19 | PC.NURSE ---
This patient, Naga De Leon, was transferred to [[id number] ] on 07/28/22 at 0319. Personal belongings sent with patient. Report given to [jacinda holman ]. Appropriate documentation sent with patient.
--- NOTE | 2022-07-28 03:44 | PC.NURSE ---
RECEIVED PT FROM IMU PER BED. VOICES NO C/O
[2022-07-28 04:47] LABS: Eosinophils Absolute Auto 0.1 K/mm3 (0-0.3); Eosinophils Percent Auto 1.5 % (0-4.4); Hematocrit 21.6 % (42.0-52.0); Immature Granulocyte Absolute 0.09 K/mm3 (0.00-0.031); Immature Granulocyte Percent A 1.1 % (0-0.5); Immature Platelet Fraction Pct 7.9 % (0.9-11.2); Lymphocytes Absolute Auto 0.51 K/mm3 (0.9-3.2); Lymphocytes Percent Auto 6.4 % (18.3-44.2); Mean Corpuscular HGB Conc 32.4 g/dl (32-36); Mean Corpuscular Hemoglobin 32.4 pg (26-34); Mean Platelet Volume 11.4 fl (7.4-10.4); Monocytes Absolute Auto 0.4 K/mm3 (0.1-0.6); Monocytes Percent Auto 5.5 % (2.6-8.5); Neutrophils Absolute Auto 6.8 K/mm3 (1.3-6.7); Neutrophils Percent Auto 85.5 % (45.5-73.1); Platelet Count Result 52 k/mm3 (150-375); Red Blood Count 2.16 M/mm3 (4.6-6.20); Red Cell Distribution Width 18.2 % (11.5-14.5)
[2022-07-28 05:00] LABS: Alanine Aminotransferase 23 U/L (6-50); Alkaline Phosphatase 74 U/L (38-126); Anion Gap 4 mmol/L (8-16); Aspartate Amino Transferase 26 U/L (17-59); Bilirubin,Total 1.6 mg/dL (0.2-1.3); Blood Urea Nitrogen 55 mg/dL (9-20); Calcium 8.1 mg/dL (8.4-10.2); Carbon Dioxide 32 mmol/L (22-30); Chloride 95 mmol/L (98-107); Estimated CRCL calculation 25 ml/min; Estimated Glomerular Filt Rate 34; Glucose 89 mg/dL (65-110); Potassium 3.7 mmol/L (3.4-5.0); Sodium 131 mmol/L (137-145)
[2022-07-28] MEDS: CENTRAL LINE FLUSH 10 ML IV PUSH ×3 (06:22→22:15)
[2022-07-28] MEDS: CENTRAL LINE FLUSH 20 ML IV PUSH (06:22)
[2022-07-28] MEDS: LEVOTHYROXINE SODIUM 50 MCG TABLET PO (06:25)
[2022-07-28] MEDS: MAGNESIUM OXIDE 200 MG TABLET PO (08:29)
[2022-07-28] MEDS: BUMETANIDE 1 MG TABLET 2 MG PO (08:29)
[2022-07-28] MEDS: BENZONATATE 100 MG CAPSULE 200 MG PO ×3 (08:29→17:06)
[2022-07-28] MEDS: OSELTAMIVIR PHOSPHATE 30 MG CAPSULE PO (08:29)
[2022-07-28] MEDS: FAMOTIDINE 20 MG TABLET PO ×2 (08:29→22:12)
[2022-07-28] MEDS: MIDODRINE HCL 2.5 MG TABLET PO ×3 (08:30→17:07)
[2022-07-28] MEDS: SACCHAROMYCES BOULARDII 250 MG CAPSULE PO ×3 (08:30→17:07)
[2022-07-28] MEDS: PANTOPRAZOLE SODIUM IV 40 MG VIAL IV PUSH ×2 (08:30→22:14)
[2022-07-28] MEDS: CALCIUM CARBONATE (OSCAL) 500 MG TABLET PO (08:30)
[2022-07-28] MEDS: MUPIROCIN 2% OINT 22 GM TUBE 1 APPLIC EACH NARE ×2 (08:31→22:13)
[2022-07-28] MEDS: SOLIFENACIN 5 MG TABLET 10 MG PO (08:48)
[2022-07-28 09:08] LABS: Glucose Point of Care 87 mg/dl (65-105)
[2022-07-28] MEDS: METOPROLOL SUCCINATE EXT REL 50 MG TABCR PO ×2 (10:20→22:12)
[2022-07-28] MEDS: VANCOMYCIN ORAL 125 MG/2.5 ML SYRUP PO (10:55)
--- NOTE | 2022-07-28 11:31 | PM.PNNEP ---
Progress Note: A&P Assessment and Plan (1) ZORAN (acute kidney injury): Code(s): N17.9 - Acute kidney failure, unspecified Status: Acute Assessment and Plan: the patient has acute kidney injury. It seems that his baseline creatinine is around 1.3. Today the creatinine is up to 1.9. Will decrease diuretics. (2) Hyponatremia: Code(s): E87.1 - Hypo-osmolality and hyponatremia Status: Acute Assessment and Plan: His sodium level is low. This is most likely due to pre renal factors and kidney disease. Sodium 131 today. fluid restrict to 1500 (3) Influenza A: Code(s): J10.1 - Influenza due to other identified influenza virus with other respiratory manifestations Status: Acute Assessment and Plan: The patient is getting supportive care (4) Anemia: Code(s): D64.9 - Anemia, unspecified Status: Acute Assessment and Plan: hemoglobin is low. Stool guaiacs have been ordered. A blood transfusion has been ordered. retic is so-so. On Epogen (5) Hypokalemia: Code(s): E87.6 - Hypokalemia Status: Acute Assessment and Plan: Potassium is good today (6) Lactic acid acidosis: Code(s): E87.20 - Acidosis, unspecified Status: Acute Assessment and Plan: resolved. (7) Atrial fibrillation: Code(s): I48.91 - Unspecified atrial fibrillation Status: Acute Assessment and Plan: His heart rate is under good control he is in sinus rhythm right now. (8) Aortic valve stenosis: Code(s): I35.0 - Nonrheumatic aortic (valve) stenosis Status: Acute Assessment and Plan: He has mild aortic stenosis on his echo. Subjective Date/time seen: 07/28/22 11:31 Interval history: 07/27 alert. in room. we discussed case pt is feeling okay. no cp or sob. some swelling. 07/28 Patient resting comfortably in bed. He is getting Accu-Cheks. He does not know why and wonders if we can stop these. He will talk with hospitalist. No chest pain or shortness of breath. Exam Narrative: WDWN in NAD skin no rash head ncat lungs clear bilaterally cor reg no rub or gallop abd BS+ nontender and soft ext 1+ edema. Objective Data Vital Signs Vital Signs: Vital Signs - 24 hr 07/27/22 12:00 07/27/22 12:00 07/27/22 16:00 Temperature 97.2 F L 97.4 F L Pulse Rate 74 76 91 Respiratory Rate 18 18 Blood Pressure 101/51 L 94/54 L Pulse Oximetry 98 98 Oxygen Delivery 07/27/22 16:00 07/27/22 20:54 07/27/22 20:00 Temperature Pulse Rate 71 74 74 Respiratory Rate 18 Blood Pressure Pulse Oximetry 94 Oxygen Delivery Room Air 07/27/22 20:00 07/27/22 21:27 07/27/22 21:28 Temperature 97.5 F L Pulse Rate 74 77 Respiratory Rate 18 20 Blood Pressure 102/56 L Pulse Oximetry 94 95 Oxygen Delivery Room Air 07/27/22 21:34 07/27/22 20:00 07/27/22 22:00 Temperature Pulse Rate 78 73 71 Respiratory Rate 20 Blood Pressure Pulse Oximetry Oxygen Delivery 07/28/22 00:00 07/28/22 00:00 07/28/22 02:15 Temperature 97.6 F Pulse Rate 73 74 77 Respiratory Rate 18 20 Blood Pressure 100/54 L Pulse Oximetry 99 Oxygen Delivery 07/28/22 02:25 07/28/22 04:00 07/28/22 03:51 Temperature 98.0 F Pulse Rate 79 80 78 Respiratory Rate 20 20 Blood Pressure 101/58 L Pulse Oximetry 94 Oxygen Delivery 07/28/22 08:00 07/28/22 10:20 07/28/22 08:00 Temperature 97.3 F L Pulse Rate 74 77 76 Respiratory Rate 16 Blood Pressure 96/57 L 97/55 L Pulse Oximetry 98 Oxygen Delivery 07/28/22 11:20 Temperature Pulse Rate 77 Respiratory Rate Blood Pressure 97/58 L Pulse Oximetry Oxygen Delivery Intake/Output Intake/Output: Intake & Output 07/25/22 07/26/22 07/27/22 07/28/22 23:59 23:59 23:59 23:59 Intake Total 1750 720 630 Output Total 400 1791 750 500 Balance -400 -41 -30 130 Meds/Resul
--- NOTE | 2022-07-28 12:28 | P.PNIM_ITS ---
Progress Note: A&P Assessment and Plan (1) Influenza: Code(s): J11.1 - Influenza due to unidentified influenza virus with other respiratory manifestations Status: Acute Assessment and Plan: Pt found to be positive for influenza A tamiflu started on admission 07/25, end date 07/29/22 Respiratory isolation precautions (2) ZORAN (acute kidney injury): Code(s): N17.9 - Acute kidney failure, unspecified Status: Acute Assessment and Plan: Improving off diuretics, monitor, appreciate nephrology baseline appears to be 0.8 but has been consistently over 1.3 since 06/21/22 (3) Encephalopathy acute: Code(s): G93.40 - Encephalopathy, unspecified Status: Acute Assessment and Plan: Resolved (4) Leukocytosis: Code(s): D72.829 - Elevated white blood cell count, unspecified Status: Acute Assessment and Plan: Suspect secondary to influenza, monitor (5) Dehydration: Code(s): E86.0 - Dehydration Status: Acute Assessment and Plan: hold diuretics and monitor (6) Diastolic heart failure: Code(s): I50.30 - Unspecified diastolic (congestive) heart failure Status: Acute Assessment and Plan: HFpEF, grade II diast, mild pulm HTN, mild AVS (7) Pleural effusion: Code(s): J90 - Pleural effusion, not elsewhere classified Status: Acute Assessment and Plan: previous thoracentesis performed, cytology neg for malignancy, gram stain and culture not ordered...? may need to repeat and cx fluid (8) Aortic valve stenosis: Code(s): I35.0 - Nonrheumatic aortic (valve) stenosis Status: Acute Assessment and Plan: AVR in 2013, now with recurrent AVS, monitor (9) Elevated troponin: Code(s): R77.8 - Other specified abnormalities of plasma proteins Status: Acute Assessment and Plan: unlikely to be ischemic related, fluctuating, will discontinue monitor (10) Hyponatremia: Code(s): E87.1 - Hypo-osmolality and hyponatremia Status: Acute Assessment and Plan: Improved to 133 today (11) C. difficile diarrhea: Code(s): A04.72 - Enterocolitis due to Clostridium difficile, not specified as recurrent Status: Acute Assessment and Plan: cont oral vanc 125 mg daily for cdif prophylaxis while on IV vanc for MRSA bact eremia (12) Occult blood in stools: Code(s): R19.5 - Other fecal abnormalities Status: Acute Assessment and Plan: recheck FOBT, previously positive, thought to be from occult GI losses due to prior cdif infection and then chronic collagenous colitis, previously on budesonide, may need to restart this now that cdif is negative (13) Hypothyroidism, unspecified: Code(s): E03.9 - Hypothyroidism, unspecified Status: Acute Assessment and Plan: TSH 2.39 06/17, cont home meds (14) Hypokalemia: Code(s): E87.6 - Hypokalemia Status: Acute Assessment and Plan: 3 today, replace and recheck (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 hgb down to 6.9 today, being transfused this morning required transfusions at both prior hospitalizations GI consult does not think malignancy as etiology due to prior colonoscopy WNL within 1 year GI consult completed, will consult heme/onc (16) Lactic acid acidosis: Code(s): E87.20 - Acidosis, unspecified
--- NOTE | 2022-07-28 13:13 | PC.NURSE ---
On 07/28/22, the student, [Janeen Leiva], provided care and completed [facility] documentation on this patient. I have reviewed the student's documentation and agree with the findings.
[2022-07-28] MEDS: ATORVASTATIN 10 MG TABLET PO (22:11)
[2022-07-28] MEDS: ZOLPIDEM TARTRATE (*CRX) 5 MG TABLET 10 MG PO (22:14)
[2022-07-28] MEDS: TAMSULOSIN HCL 0.4 MG CAPSULE PO (22:14)
[2022-07-28] MEDS: OSELTAMIVIR PHOSPHATE ORAL SUSP 30 MG/5 ML SYRINGE PO (22:17)
[2022-07-29] VITALS (25 sets, daily range): BP systolic 94–117; BP diastolic 45–59; PULSE 62–95; RESP 16–22; TEMP 36.2–36.9; O2SAT 91–99
[2022-07-29] MEDS: IPRATROPIUM BR 0.02% INH SOLN 0.5 MG/2.5 ML VIAL INHALATION ×4 (01:42→20:19)
[2022-07-29] MEDS: CENTRAL LINE FLUSH 10 ML IV PUSH ×3 (05:31→21:03)
[2022-07-29] MEDS: LEVOTHYROXINE SODIUM 50 MCG TABLET PO (05:31)
[2022-07-29] MEDS: CENTRAL LINE FLUSH 20 ML IV PUSH (05:38)
[2022-07-29 05:48] LABS: Eosinophils Absolute Auto 0.1 K/mm3 (0-0.3); Eosinophils Percent Auto 1.6 % (0-4.4); Immature Granulocyte Absolute 0.08 K/mm3 (0.00-0.031); Immature Granulocyte Percent A 1.2 % (0-0.5); Immature Platelet Fraction Pct 7.4 % (0.9-11.2); Lymphocytes Absolute Auto 0.51 K/mm3 (0.9-3.2); Lymphocytes Percent Auto 7.6 % (18.3-44.2); Mean Corpuscular HGB Conc 32.2 g/dl (32-36); Mean Corpuscular Hemoglobin 32.5 pg (26-34); Mean Platelet Volume 11.1 fl (7.4-10.4); Monocytes Absolute Auto 0.5 K/mm3 (0.1-0.6); Monocytes Percent Auto 7.1 % (2.6-8.5); Neutrophils Absolute Auto 5.6 K/mm3 (1.3-6.7); Neutrophils Percent Auto 82.5 % (45.5-73.1); Platelet Count Result 51 k/mm3 (150-375); White Blood Count 6.7 K/mm3 (4.5-10.0)
[2022-07-29 05:57] LABS: Alanine Aminotransferase 20 U/L (6-50); Albumin Level 2.9 g/dL (3.5-5.1); Alkaline Phosphatase 78 U/L (38-126); Anion Gap 5 mmol/L (8-16); Aspartate Amino Transferase 23 U/L (17-59); Bilirubin,Total 1.6 mg/dL (0.2-1.3); Blood Urea Nitrogen 51 mg/dL (9-20); Calcium 7.7 mg/dL (8.4-10.2); Carbon Dioxide 30 mmol/L (22-30); Chloride 97 mmol/L (98-107); Estimated CRCL calculation 25 ml/min; Estimated Glomerular Filt Rate 34; Glucose 93 mg/dL (65-110); Potassium 3.6 mmol/L (3.4-5.0); Sodium 132 mmol/L (137-145)
[2022-07-29 06:59] LABS: Hematocrit 20.2 % (42.0-52.0); Hemoglobin 6.5 g/dL (14.0-18.0)
[2022-07-29] MEDS: SODIUM CHLORIDE 0.9% IV 250 ML 30 ML IV CONT (08:06)
[2022-07-29] MEDS: LIDOCAINE 5% PATCH 2 PATCH TRANSDERM (08:36)
[2022-07-29] MEDS: MUPIROCIN 2% OINT 22 GM TUBE 1 APPLIC EACH NARE ×2 (08:37→21:03)
[2022-07-29] MEDS: CALCIUM CARBONATE (OSCAL) 500 MG TABLET PO (08:37)
[2022-07-29] MEDS: PANTOPRAZOLE SODIUM IV 40 MG VIAL IV PUSH ×2 (08:37→21:01)
[2022-07-29] MEDS: SOLIFENACIN 5 MG TABLET 10 MG PO (08:38)
[2022-07-29] MEDS: SACCHAROMYCES BOULARDII 250 MG CAPSULE PO ×3 (08:38→16:40)
[2022-07-29] MEDS: BUMETANIDE 1 MG TABLET PO (08:38)
[2022-07-29] MEDS: FAMOTIDINE 20 MG TABLET PO ×2 (08:38→21:02)
[2022-07-29] MEDS: MAGNESIUM OXIDE 200 MG TABLET PO (08:39)
[2022-07-29] MEDS: MIDODRINE HCL 2.5 MG TABLET PO ×3 (08:39→16:40)
[2022-07-29] MEDS: FLUTICASONE PROPIONATE 0.05% NA SPR 16 GM BTL (*BKC) 2 SPRAY NASAL (08:40)
--- NOTE | 2022-07-29 09:12 | PCPTNOTE ---
attempted PT eval 9:00- per RN hold at this time, due to pt receiving blood transfusion;
[2022-07-29] MEDS: OSELTAMIVIR PHOSPHATE ORAL SUSP 30 MG/5 ML SYRINGE PO ×2 (09:56→21:03)
[2022-07-29] MEDS: VANCOMYCIN ORAL 125 MG/2.5 ML SYRUP PO (09:56)
[2022-07-29] MEDS: METOPROLOL SUCCINATE EXT REL 50 MG TABCR PO ×2 (09:57→21:02)
--- NOTE | 2022-07-29 10:02 | PCOTNOTE ---
Attempted occupational therapy evaluation. Patient refuses to participate at this time due to being tired from just getting blood. Following.
[2022-07-29 11:20] LABS: Vancomycin Trough 25.3 ug/mL (10.0-20.0)
[2022-07-29] MEDS: FUROSEMIDE INJ 40 MG/4 ML VIAL 20 MG IV PUSH ×2 (12:09→16:39)
--- NOTE | 2022-07-29 12:45 | PCPTNOTE ---
pt refused PT evaluation at 1120-- stated he was not feeling up to it; unable to convince him to get OOB, to chair;
--- NOTE | 2022-07-29 13:15 | PM.PNNEP ---
Progress Note: A&P Assessment and Plan (1) ZORAN (acute kidney injury): Code(s): N17.9 - Acute kidney failure, unspecified Status: Acute Assessment and Plan: wit recurrent hospitalizations, creatinine seems to have stabilized ~ 1.3mg/dl creatinine higher on this admission diuretics reduced follow trend of labs and UOP (2) Hyponatremia: Code(s): E87.1 - Hypo-osmolality and hyponatremia Status: Chronic Assessment and Plan: chronic issue due to pre-renal factors and underlying renal insufficiency follow trend of sodiums on fluid restriction (3) Influenza A: Code(s): J10.1 - Influenza due to other identified influenza virus with other respiratory manifestations Status: Acute Assessment and Plan: supportie therapy (4) Anemia: Code(s): D64.9 - Anemia, unspecified Status: Acute Assessment and Plan: chronic issue/problems over his last 3 admissions/hospitalizations PRBC transfusion per protocol on Epogen follow trend of H/H (5) Hypokalemia: Code(s): E87.6 - Hypokalemia Status: Acute Assessment and Plan: K+ stable precipitated by diuretic therapy(?_ follow trend Will continue to follow. Subjective Date/time seen: 07/29/22 13:15 Chart reviewed - following this weekend; recently readmited again as noted; major complaint is that of generalized weakness; low H/H noted by AM labs; no apparent distress voiced. Exam Narrative: General: WD/WN male in NAD Heart: normal S1 and S2; no rub Lungs: clear to auscultation Abdomen: soft, nontender, nondistended, positive bowel sounds Extremities: no cyanosis or clubbing; 1+ edema Skin: warm and dry Objective Data Vital Signs Vital Signs: Vital Signs Temp Pulse Resp BP Pulse Ox O2 Del Method 07/29/22 13:05 97.9 F 73 22 H 99/51 L 98 07/29/22 13:05 97.9 F 73 22 H 99/51 L 98 07/29/22 12:03 97.2 F L 72 18 105/54 L 99 07/29/22 11:15 97.9 F 73 16 101/54 L 96 07/29/22 11:47 97.9 F 73 16 101/54 L 96 07/29/22 11:15 97.9 F 73 16 101/54 L 96 07/29/22 11:15 97.9 F 73 16 101/54 L 96 07/29/22 10:50 98.5 F 76 18 99/55 L 97 07/29/22 09:43 97.7 F 79 18 94/50 L 97 07/29/22 09:43 97.7 F 79 18 94/50 L 97 07/29/22 08:43 97.5 F L 78 18 94/52 L 94 07/29/22 08:27 98.3 F 78 18 98/50 L 94 07/29/22 07:54 73 16 07/29/22 07:45 76 16 07/29/22 07:45 76 92 Room Air 07/29/22 04:00 97.6 F 76 20 99/49 L 91 07/29/22 04:00 77 07/29/22 01:51 88 18 07/29/22 00:00 73 07/28/22 20:00 76 07/29/22 01:42 84 18 07/29/22 01:42 84 18 96 Room Air 07/28/22 21:40 Room Air 07/29/22 00:00 98.1 F 71 16 101/45 L 93 07/28/22 22:57 81 18 07/28/22 22:57 81 18 95 Room Air 07/28/22 22:12 77 07/28/22 20:00 97.6 F 77 20 102/55 L 96 Intake/Output Intake/Output: Intake & Output 07/26/22 07/27/22 07/28/22 07/29/22 23:59 23:59 23:59 23:59 Intake Total 0957 516 7402 944 Output Total 8092 940 7110 702 Balance -41 -30 680 242 Meds/Results Medications: Active Medications Generic Name Dose Route Start Last Admin Trade Name Freq PRN Reason Stop Dose Admin Acetaminophen 1,000 mg 07/26/22 01:06 07/27/22 09:40 Acetaminophen 500 Mg Tablet PO 1,000 mg Q6H PRN Administration Mild Pain (1-3) or Fever Hydrocodone Bitart/Acetaminophen 1 tab 07/27/22 12:28 07/27/22 20:56 Hydrocodone/Acetaminophen (*Crx) 5-325 Mg Tablet PO 1 tab Q4H PRN Administration Pain Rated 4-6 Albuterol 1 puff 07/25/22 23:42 07/27/22 14:42 Albuterol Sulfate (*Sp) Aerosol 1 Puff INHALATION 1 puff QID PRN Administration Shortness Of Breath Apixaban 2.5 mg 07/25/22 21:00 07/26/22 09:12 Apixaban 2.5 Mg Tablet PO 2.5 mg Q12HR NEHA Administration Atorvastatin Calcium 10 mg
[2022-07-29] MEDS: EPOETIN ALFA-EPBX 10,000 UNITS/ML VIAL 10000 UNITS SUB-Q (16:39)
[2022-07-29] MEDS: TAMSULOSIN HCL 0.4 MG CAPSULE PO (21:02)
[2022-07-29] MEDS: ATORVASTATIN 10 MG TABLET PO (21:02)
[2022-07-29] MEDS: ZOLPIDEM TARTRATE (*CRX) 5 MG TABLET 10 MG PO (22:51)
[2022-07-30] VITALS (17 sets, daily range): BP systolic 99–110; BP diastolic 47–61; PULSE 69–77; RESP 16–18; TEMP 36.2–36.8; O2SAT 93–97
[2022-07-30] MEDS: CENTRAL LINE FLUSH 20 ML IV PUSH (05:04)
[2022-07-30 05:06] LABS: Eosinophils Absolute Auto 0.1 K/mm3 (0-0.3); Eosinophils Percent Auto 1.4 % (0-4.4); Hematocrit 26.5 % (42.0-52.0); Immature Granulocyte Percent A 1.6 % (0-0.5); Immature Platelet Fraction Pct 7.2 % (0.9-11.2); Lymphocytes Percent Auto 7.9 % (18.3-44.2); Mean Corpuscular Hemoglobin 32.5 pg (26-34); Mean Corpuscular Volume 95.7 fl (80-100); Mean Platelet Volume 11.5 fl (7.4-10.4); Monocytes Absolute Auto 0.6 K/mm3 (0.1-0.6); Monocytes Percent Auto 8.8 % (2.6-8.5); Neutrophils Absolute Auto 5.1 K/mm3 (1.3-6.7); Neutrophils Percent Auto 80.3 % (45.5-73.1); Platelet Count Result 46 k/mm3 (150-375); Red Blood Count 2.77 M/mm3 (4.6-6.20); Red Cell Distribution Width 18.6 % (11.5-14.5); White Blood Count 6.3 K/mm3 (4.5-10.0)
[2022-07-30 05:19] LABS: Alanine Aminotransferase 18 U/L (6-50); Albumin Level 3.1 g/dL (3.5-5.1); Alkaline Phosphatase 77 U/L (38-126); Anion Gap 2 mmol/L (8-16); Aspartate Amino Transferase 23 U/L (17-59); Bilirubin,Total 1.9 mg/dL (0.2-1.3); Blood Urea Nitrogen 45 mg/dL (9-20); Calcium 7.8 mg/dL (8.4-10.2); Carbon Dioxide 32 mmol/L (22-30); Chloride 96 mmol/L (98-107); Estimated CRCL calculation 25 ml/min; Estimated Glomerular Filt Rate 34; Glucose 89 mg/dL (65-110); Potassium 3.6 mmol/L (3.4-5.0); Sodium 130 mmol/L (137-145)
[2022-07-30] MEDS: LEVOTHYROXINE SODIUM 50 MCG TABLET PO (05:31)
[2022-07-30] MEDS: CENTRAL LINE FLUSH 10 ML IV PUSH ×3 (05:32→20:27)
[2022-07-30] MEDS: IPRATROPIUM BR 0.02% INH SOLN 0.5 MG/2.5 ML VIAL INHALATION ×2 (07:52→14:07)
[2022-07-30] MEDS: OSELTAMIVIR PHOSPHATE ORAL SUSP 30 MG/5 ML SYRINGE PO ×2 (08:05→20:27)
[2022-07-30] MEDS: VANCOMYCIN ORAL 125 MG/2.5 ML SYRUP PO (08:05)
[2022-07-30] MEDS: SOLIFENACIN 5 MG TABLET 10 MG PO (08:05)
[2022-07-30] MEDS: FAMOTIDINE 20 MG TABLET PO ×2 (08:05→20:26)
[2022-07-30] MEDS: PANTOPRAZOLE SODIUM IV 40 MG VIAL IV PUSH ×2 (08:05→20:26)
[2022-07-30] MEDS: SACCHAROMYCES BOULARDII 250 MG CAPSULE PO ×3 (08:06→17:18)
[2022-07-30] MEDS: MIDODRINE HCL 2.5 MG TABLET PO ×3 (08:06→17:17)
[2022-07-30] MEDS: CALCIUM CARBONATE (OSCAL) 500 MG TABLET PO (08:06)
[2022-07-30] MEDS: PHENAZOPYRIDINE HCL 100 MG TABLET PO (08:06)
[2022-07-30] MEDS: BUMETANIDE 1 MG TABLET PO (08:06)
[2022-07-30] MEDS: MAGNESIUM OXIDE 200 MG TABLET PO (08:06)
[2022-07-30] MEDS: METOPROLOL SUCCINATE EXT REL 50 MG TABCR PO ×2 (08:06→20:26)
[2022-07-30] MEDS: FLUTICASONE PROPIONATE 0.05% NA SPR 16 GM BTL (*BKC) 2 SPRAY NASAL (08:07)
[2022-07-30] MEDS: MUPIROCIN 2% OINT 22 GM TUBE 1 APPLIC EACH NARE ×2 (08:07→20:27)
[2022-07-30] MEDS: LIDOCAINE 5% PATCH 2 PATCH TRANSDERM (08:07)
--- NOTE | 2022-07-30 12:30 | PCPTNOTE ---
pt refused PT evaluation due to fatigue ~ 11:00; had OT this AM and been busy ;
--- NOTE | 2022-07-30 12:39 | PM.PNNEP ---
Progress Note: A&P Assessment and Plan (1) ZORAN (acute kidney injury): Code(s): N17.9 - Acute kidney failure, unspecified Status: Acute Assessment and Plan: with recurrent hospitalizations, creatinine seems to have stabilized ~ 1.3mg/dl creatinine higher on this admission possible new baseline diuretics reduced at this time follow trend of labs and UOP (2) Hyponatremia: Code(s): E87.1 - Hypo-osmolality and hyponatremia Status: Chronic Assessment and Plan: chronic issue due to pre-renal factors and underlying renal insufficiency follow trend of sodiums on fluid restriction (3) Influenza A: Code(s): J10.1 - Influenza due to other identified influenza virus with other respiratory manifestations Status: Acute Assessment and Plan: supportie therapy (4) Anemia: Code(s): D64.9 - Anemia, unspecified Status: Acute Assessment and Plan: chronic issue/problems over his last 3 admissions/hospitalizations PRBC transfusion per protocol on Epogen follow trend of H/H (5) Hypokalemia: Code(s): E87.6 - Hypokalemia Status: Acute Assessment and Plan: K+ stable precipitated by diuretic therapy(?) follow trend Will continue to follow. Subjective Date/time seen: 07/30/22 12:39 Appears to be doing reasonably well at the time of my visit; seems a bit more awake and alert in comparison to yesterday; PRBC transfusion yesterday due to low H/H and tolerated well; no other issues/events overnight or earlier this AM. Exam Narrative: General: WD/WN male in NAD Heart: normal S1 and S2; no rub Lungs: clear to auscultation Abdomen: soft, nontender, nondistended, positive bowel sounds Extremities: no cyanosis or clubbing; 1+ edema Skin: warm and intact Objective Data Vital Signs Vital Signs: Vital Signs Temp Pulse Resp BP Pulse Ox O2 Del Method 07/30/22 10:38 97.2 F L 73 16 110/61 96 07/30/22 08:40 Room Air 07/30/22 07:54 76 16 07/30/22 07:45 73 16 07/30/22 07:45 94 Room Air 07/30/22 06:00 97.7 F 73 16 109/47 L 93 07/30/22 04:00 71 07/30/22 00:40 98.3 F 74 18 103/56 L 96 07/30/22 00:00 73 07/29/22 20:00 97.4 F L 72 18 117/58 L 97 07/29/22 21:02 66 07/29/22 20:30 74 20 07/29/22 20:20 72 18 07/29/22 20:00 73 Intake/Output Intake/Output: Intake & Output 07/27/22 07/28/22 07/29/22 07/30/22 23:59 23:59 23:59 23:59 Intake Total 720 1830 1304 660 Output Total 750 1150 702 600 Balance -30 680 602 60 Meds/Results Medications: Active Medications Generic Name Dose Route Start Last Admin Trade Name Freq PRN Reason Stop Dose Admin Acetaminophen 1,000 mg 07/26/22 01:06 07/27/22 09:40 Acetaminophen 500 Mg Tablet PO 1,000 mg Q6H PRN Administration Mild Pain (1-3) or Fever Hydrocodone Bitart/Acetaminophen 1 tab 07/27/22 12:28 07/27/22 20:56 Hydrocodone/Acetaminophen (*Crx) 5-325 Mg Tablet PO 1 tab Q4H PRN Administration Pain Rated 4-6 Albuterol 1 puff 07/25/22 23:42 07/27/22 14:42 Albuterol Sulfate (*Sp) Aerosol 1 Puff INHALATION 1 puff QID PRN Administration Shortness Of Breath Apixaban 2.5 mg 07/25/22 21:00 07/26/22 09:12 Apixaban 2.5 Mg Tablet PO 2.5 mg Q12HR NEHA Administration Atorvastatin Calcium 10 mg 07/26/22 00:15 07/29/22 21:02 Atorvastatin 10 Mg Tablet PO 10 mg HS NEHA Administration Bumetanide 1 mg 07/29/22 09:00 07/30/22 08:06 Bumetanide 1 Mg Tablet PO 1 mg DAILY NEHA Administration Calcium Carbonate 500 mg 07/26/22 09:00 07/30/22 08:06 Calcium Carbonate (Oscal) 500 Mg Tablet PO 500 mg QAM NEHA Administration Clobetasol Propionate 1 applic 07/26/22 00:36 Clobetasol Propionate 0.05% Cream 30 Gm TOPICAL DAILY PRN Skin Irritation Epoetin Fabrizio-epbx 10,000 units 07/27/22 1
--- NOTE | 2022-07-30 13:04 | PM.IMPN ---
Progress Note: A&P Assessment and Plan (1) Influenza: Code(s): J11.1 - Influenza due to unidentified influenza virus with other respiratory manifestations Status: Acute Assessment and Plan: Pt found to be positive for influenza A tamiflu started on admission 07/25, end date 07/29/22 Respiratory isolation precautions 07/30/2022 interval history: patient 82-year-old male I discharged him last as patient was treated was Pseudomonas bacteremia and plan continue IV antibiotic for 2 weeks however patient presented with a acute mental status change and was found to have a influenza A, and was dehydrated resulting in encephalopathy, patient was treated with Tamiflu for 5 day course and gently hydrated, upon arrival patient hemoglobin was low and patient was given 2 units of pack RBC, patient had been seen by GI in the suspect chronic anemia secondary to anticoagulation, today patient is much more alert and oriented his and daughter present in the room, will have a PT OT evaluate the patient, will continue to monitor and further recommendation to follow. (2) ZORAN (acute kidney injury): Code(s): N17.9 - Acute kidney failure, unspecified Status: Acute Assessment and Plan: Improving off diuretics, monitor, appreciate nephrology baseline appears to be 0.8 but has been consistently over 1.3 since 06/21/22 (3) Encephalopathy acute: Code(s): G93.40 - Encephalopathy, unspecified Status: Acute Assessment and Plan: Resolved (4) Leukocytosis: Code(s): D72.829 - Elevated white blood cell count, unspecified Status: Acute Assessment and Plan: Suspect secondary to influenza, monitor (5) Dehydration: Code(s): E86.0 - Dehydration Status: Acute Assessment and Plan: hold diuretics and monitor (6) Diastolic heart failure: Code(s): I50.30 - Unspecified diastolic (congestive) heart failure Status: Acute Assessment and Plan: HFpEF, grade II diast, mild pulm HTN, mild AVS (7) Pleural effusion: Code(s): J90 - Pleural effusion, not elsewhere classified Status: Acute Assessment and Plan: previous thoracentesis performed, cytology neg for malignancy, gram stain and culture not ordered...? may need to repeat and cx fluid (8) Aortic valve stenosis: Code(s): I35.0 - Nonrheumatic aortic (valve) stenosis Status: Acute Assessment and Plan: AVR in 2013, now with recurrent AVS, monitor (9) Elevated troponin: Code(s): R77.8 - Other specified abnormalities of plasma proteins Status: Acute Assessment and Plan: unlikely to be ischemic related, fluctuating, will discontinue monitor (10) Hyponatremia: Code(s): E87.1 - Hypo-osmolality and hyponatremia Status: Chronic Assessment and Plan: Improved to 133 today (11) C. difficile diarrhea: Code(s): A04.72 - Enterocolitis due to Clostridium difficile, not specified as recurrent Status: Acute Assessment and Plan: cont oral vanc 125 mg daily for cdif prophylaxis while on IV vanc for MRSA bacteremia (12) Occult blood in stools: Code(s): R19.5 - Other fecal abnormalities Status: Acute Assessment and Plan: recheck FOBT, previously positive, thought to be from occult GI losses due to prior cdif infection and then chronic collagenous colitis, previously on budesonide, may need to restart this now that cdif is negative (13) Hypothyroidism, unspecified: Code(s): E03.9 - Hypothyroidism, unspecified Status: Acute Assessment and Plan: TSH 2.39 06/17, cont home meds (14) Hypokalemia: Code(s): E87.6 - Hypokalemia Status: Acute Assessment and Plan: 3 today, replace and recheck (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
[2022-07-30] MEDS: ATORVASTATIN 10 MG TABLET PO (20:26)
[2022-07-30] MEDS: TAMSULOSIN HCL 0.4 MG CAPSULE PO (20:27)
[2022-07-30] MEDS: ZOLPIDEM TARTRATE (*CRX) 5 MG TABLET 10 MG PO (22:53)
--- NOTE | 2022-07-30 23:02 | PCRCNOTE ---
Window of time for administration has passed. See next scheduled administration.
[2022-07-31] VITALS (16 sets, daily range): BP systolic 94–104; BP diastolic 52–62; PULSE 69–79; RESP 16–24; TEMP 36.2–36.7; O2SAT 93–98
[2022-07-31] MEDS: IPRATROPIUM BR 0.02% INH SOLN 0.5 MG/2.5 ML VIAL INHALATION ×4 (02:45→19:57)
[2022-07-31] MEDS: LEVOTHYROXINE SODIUM 50 MCG TABLET PO (05:03)
[2022-07-31] MEDS: CENTRAL LINE FLUSH 10 ML IV PUSH ×3 (05:03→20:21)
[2022-07-31] MEDS: CENTRAL LINE FLUSH 20 ML IV PUSH (05:09)
[2022-07-31 05:19] LABS: Basophils Percent Auto 0.2 % (0.2-1.2); Eosinophils Absolute Auto 0.1 K/mm3 (0-0.3); Eosinophils Percent Auto 1.5 % (0-4.4); Hematocrit 27.1 % (42.0-52.0); Immature Granulocyte Absolute 0.09 K/mm3 (0.00-0.031); Immature Granulocyte Percent A 1.7 % (0-0.5); Immature Platelet Fraction Pct 6.9 % (0.9-11.2); Lymphocytes Absolute Auto 0.56 K/mm3 (0.9-3.2); Lymphocytes Percent Auto 10.6 % (18.3-44.2); Mean Corpuscular HGB Conc 33.2 g/dl (32-36); Mean Corpuscular Volume 96.4 fl (80-100); Mean Platelet Volume 11.4 fl (7.4-10.4); Monocytes Absolute Auto 0.6 K/mm3 (0.1-0.6); Neutrophils Absolute Auto 3.9 K/mm3 (1.3-6.7); Platelet Count Result 44 k/mm3 (150-375); Red Blood Count 2.81 M/mm3 (4.6-6.20); Red Cell Distribution Width 18.5 % (11.5-14.5); White Blood Count 5.3 K/mm3 (4.5-10.0)
[2022-07-31 05:39] LABS: Alanine Aminotransferase 18 U/L (6-50); Alkaline Phosphatase 86 U/L (38-126); Anion Gap 4 mmol/L (8-16); Aspartate Amino Transferase 22 U/L (17-59); Bilirubin,Total 1.8 mg/dL (0.2-1.3); Blood Urea Nitrogen 42 mg/dL (9-20); Calcium 7.7 mg/dL (8.4-10.2); Carbon Dioxide 29 mmol/L (22-30); Chloride 100 mmol/L (98-107); Estimated CRCL calculation 28 ml/min; Estimated Glomerular Filt Rate 39; Glucose 90 mg/dL (65-110); Potassium 3.5 mmol/L (3.4-5.0); Sodium 133 mmol/L (137-145)
[2022-07-31 06:38] LABS: Anisocytosis 2+ (NORMAL); Hypochromasia 2+ (NORMAL); Platelet Estimate Decreased (Adequate); Schistocytes None Seen (NORMAL)
[2022-07-31] MEDS: POTASSIUM CHLORIDE 20 MEQ PACKET (FOR LIQUID) 40 MEQ PO (09:10)
[2022-07-31] MEDS: FAMOTIDINE 20 MG TABLET PO ×2 (09:11→20:20)
[2022-07-31] MEDS: CALCIUM CARBONATE (OSCAL) 500 MG TABLET PO (09:12)
[2022-07-31] MEDS: SOLIFENACIN 5 MG TABLET 10 MG PO (09:12)
[2022-07-31] MEDS: METOPROLOL SUCCINATE EXT REL 50 MG TABCR PO (09:13)
[2022-07-31] MEDS: PANTOPRAZOLE SODIUM IV 40 MG VIAL IV PUSH ×2 (09:14→20:21)
[2022-07-31] MEDS: FLUTICASONE PROPIONATE 0.05% NA SPR 16 GM BTL (*BKC) 2 SPRAY NASAL (09:14)
[2022-07-31] MEDS: MAGNESIUM OXIDE 200 MG TABLET PO (09:14)
[2022-07-31] MEDS: SACCHAROMYCES BOULARDII 250 MG CAPSULE PO ×3 (09:14→17:29)
[2022-07-31] MEDS: BUMETANIDE 1 MG TABLET PO (09:15)
[2022-07-31] MEDS: MUPIROCIN 2% OINT 22 GM TUBE 1 APPLIC EACH NARE ×2 (09:15→20:20)
[2022-07-31] MEDS: OSELTAMIVIR PHOSPHATE ORAL SUSP 30 MG/5 ML SYRINGE PO (09:17)
[2022-07-31] MEDS: MIDODRINE HCL 2.5 MG TABLET PO ×2 (12:46→17:29)
[2022-07-31] MEDS: LIDOCAINE 5% PATCH 2 PATCH TRANSDERM (12:53)
--- NOTE | 2022-07-31 12:57 | PCNFU ---
Nutrition Follow-Up Complete: Moderate malnutrition related to loss of appetite as evidenced by weight loss -16%/1 month, poor appetite and moderate muscle wasting and fat loss. Goal:Adequate PO intake at least 75% meals - Not meeting goal. Continue with same goal Pt current nutrition is Heart healthy diet. Fluid restriction 1500 ml/day. Ensure compact BID . Intakes 50% Nutrition recommendation: Continue current diet order. Last recorded weight is 70.6 kg. Weight loss -13 lb/5 days likely due to diuresis Bowel Motility: +1 BM 07/30/22 Labs Reviewed: Hgb 9.0, Hct 27.1, Alb 3.0, Na 133, BUN 42, Creat 1.7 Meds Noted: Eliquid, Bumex, protonix, vancomycin Skin: WNL Additional Notes: Continue with current diet order and monitoring. Pt is eating about 50% meals. Monitoring intakes, weights, labs, plan of care, Follow up in 5 days
--- NOTE | 2022-07-31 13:54 | P.PNIM_ITS ---
Progress Note: A&P Assessment and Plan (1) Influenza: Code(s): J11.1 - Influenza due to unidentified influenza virus with other respiratory manifestations Status: Acute Assessment and Plan: Pt found to be positive for influenza A tamiflu started on admission 07/25, end date 07/29/22 Respiratory isolation precautions 07/31/2022 interval history: patient 82-year-old male I discharged him last as patient was treated was Pseudomonas bacteremia and plan continue IV antibiotic for 2 weeks patient will complete vancomycin tomorrow, however patient presented with a acute mental status change and was found to have a influenza A, and was dehydrated resulting in encephalopathy, patient was treated with Tamiflu for 5 day course and gently hydrated, upon arrival patient hemoglobin was low and patient was given 2 units of pack RBC, patient had been seen by GI in the suspect chronic anemia secondary to anticoagulation, today patient is much more alert and oriented his and daughter present in the room, will have a PT OT evaluate the patient, will continue to monitor and further recommendation to follow. (2) ZORAN (acute kidney injury): Code(s): N17.9 - Acute kidney failure, unspecified Status: Acute Assessment and Plan: Improving off diuretics, monitor, appreciate nephrology baseline appears to be 0.8 but has been consistently over 1.3 since 06/21/22 (3) Encephalopathy acute: Code(s): G93.40 - Encephalopathy, unspecified Status: Acute Assessment and Plan: Resolved (4) Leukocytosis: Code(s): D72.829 - Elevated white blood cell count, unspecified Status: Acute Assessment and Plan: Suspect secondary to influenza, monitor (5) Dehydration: Code(s): E86.0 - Dehydration Status: Acute Assessment and Plan: hold diuretics and monitor (6) Diastolic heart failure: Code(s): I50.30 - Unspecified diastolic (congestive) heart failure Status: Acute Assessment and Plan: HFpEF, grade II diast, mild pulm HTN, mild AVS (7) Pleural effusion: Code(s): J90 - Pleural effusion, not elsewhere classified Status: Acute Assessment and Plan: previous thoracentesis performed, cytology neg for malignancy, gram stain and culture not ordered...? may need to repeat and cx fluid (8) Aortic valve stenosis: Code(s): I35.0 - Nonrheumatic aortic (valve) stenosis Status: Acute Assessment and Plan: AVR in 2014, now with recurrent AVS, monitor (9) Elevated troponin: Code(s): R77.8 - Other specified abnormalities of plasma proteins Status: Acute Assessment and Plan: unlikely to be ischemic related, fluctuating, will discontinue monitor (10) Hyponatremia: Code(s): E87.1 - Hypo-osmolality and hyponatremia Status: Chronic Assessment and Plan: Improved to 133 today (11) C. difficile diarrhea: Code(s): A04.72 - Enterocolitis due to Clostridium difficile, not specified as recurrent Status: Acute Assessment and Plan: cont oral vanc 125 mg daily for cdif prophylaxis while on IV vanc for MRSA bacteremia (12) Occult blood in stools: Code(s): R19.5 - Other fecal abnormalities Status: Acute Assessment and Plan: recheck FOBT, previously positive, thought to be from occult GI losses due to prior cdif infection and then chronic collagenous colitis, previously on budesonide, may need to restart this now that cdif is negative (13) Hypothyroidism, unspecified: Code(s): E03.9 - Hypothyroidism, unspecifie
[2022-07-31] MEDS: BENZONATATE 100 MG CAPSULE PO ×2 (14:09→20:20)
--- NOTE | 2022-07-31 15:23 | PM.PNNEP ---
Progress Note: A&P Assessment and Plan (1) ZORAN (acute kidney injury): Code(s): N17.9 - Acute kidney failure, unspecified Status: Acute Assessment and Plan: he seems to have a baseline of about 1.3. His creatinine angelica to 1.9 and is now down to 1.7 on fewer diuretics. He was dizzy today on his feet so will hold diuretics for now. Check a renal panel in the morning (2) Hyponatremia: Code(s): E87.1 - Hypo-osmolality and hyponatremia Status: Chronic Assessment and Plan: chronic issue due to pre-renal factors and underlying renal insufficiency follow trend of sodiums on fluid restriction will stop the fluid restriction. (3) Influenza A: Code(s): J10.1 - Influenza due to other identified influenza virus with other respiratory manifestations Status: Acute Assessment and Plan: supportie therapy (4) Anemia: Code(s): D64.9 - Anemia, unspecified Status: Acute Assessment and Plan: chronic issue/problems over his last 3 admissions/hospitalizations Getting Epogen. Hemoglobin is the same today as it was yesterday. Hemoccult was negative on the and the 26 of July. (5) Hypokalemia: Code(s): E87.6 - Hypokalemia Status: Acute Assessment and Plan: K+ stable Subjective Date/time seen: 07/31/22 15:23 Interval history: 07/27 alert. in room. we discussed case pt is feeling okay. no cp or sob. some swelling. 07/28 Patient resting comfortably in bed. He is getting Accu-Cheks. He does not know why and wonders if we can stop these. He will talk with hospitalist. No chest pain or shortness of breath. 07/31 Patient feels very thirsty. He was a little lightheaded on his feet today. Exam Narrative: General: WD/WN male in NAD Heart: normal S1 and S2; no rub Lungs: clear to auscultation Abdomen: soft, nontender, nondistended, positive bowel sounds Extremities: trace edema Skin: No rash Objective Data Vital Signs Vital Signs: Vital Signs - 24 hr 07/30/22 16:00 07/30/22 18:15 07/30/22 20:26 Temperature 97.4 F L Pulse Rate 70 77 75 Respiratory Rate 16 Blood Pressure 108/56 L Pulse Oximetry 97 Oxygen Delivery 07/30/22 20:00 07/30/22 22:00 07/31/22 00:00 Temperature 97.3 F L Pulse Rate 75 75 74 Respiratory Rate 18 Blood Pressure 102/61 Pulse Oximetry 97 Oxygen Delivery 07/31/22 02:00 07/31/22 02:45 07/31/22 02:47 Temperature 97.3 F L Pulse Rate 73 79 79 Respiratory Rate 18 18 18 Blood Pressure 103/59 L Pulse Oximetry 95 93 Oxygen Delivery Room Air 07/31/22 02:57 07/31/22 04:00 07/31/22 06:00 Temperature 97.3 F L Pulse Rate 77 77 74 Respiratory Rate 16 18 Blood Pressure 104/62 Pulse Oximetry 95 Oxygen Delivery 07/31/22 08:26 07/31/22 09:13 07/31/22 08:00 Temperature 97.2 F L Pulse Rate 78 70 Respiratory Rate 24 H Blood Pressure 103/60 Pulse Oximetry 98 Oxygen Delivery Room Air 07/31/22 09:15 07/31/22 08:00 07/31/22 13:20 Temperature Pulse Rate 72 72 Respiratory Rate 16 Blood Pressure Pulse Oximetry Oxygen Delivery Room Air 07/31/22 12:00 Temperature 97.8 F Pulse Rate 71 Respiratory Rate 24 H Blood Pressure 98/60 L Pulse Oximetry 98 Oxygen Delivery Intake/Output Intake/Output: Intake & Output 07/28/22 07/29/22 07/30/22 07/31/22 23:59 23:59 23:59 23:59 Intake Total 1830 1304 1250 480 Output Total 1150 702 600 500 Balance 680 602 650 -20 Meds/Results Medications: Active Medications Generic Name Dose Route Start Last Admin Trade Name Freq PRN Reason Stop Dose Admin Acetaminophen 1,000 mg 07/26/22 01:06 07/27/22 09:40 Acetaminophen 500 Mg Tablet PO 1,000 mg Q6H PRN Administration Mild Pain (1-3) or Fever Hydrocodone Bitart/Acetaminophen 1 tab 07/27/22 12:28 07/27/22 20:56 Hydrocodone/Acetaminophen (*Crx
[2022-07-31 16:36] LABS: Haptoglobin 10 mg/dL (43-212)
[2022-07-31] MEDS: TAMSULOSIN HCL 0.4 MG CAPSULE PO (20:20)
[2022-07-31] MEDS: ATORVASTATIN 10 MG TABLET PO (20:54)
[2022-07-31] MEDS: ZOLPIDEM TARTRATE (*CRX) 5 MG TABLET 10 MG PO (22:55)
[2022-08-01] VITALS (7 sets, daily range): BP systolic 93–106; BP diastolic 51–60; PULSE 73–84; RESP 16–20; TEMP 36.4–36.9; O2SAT 92–99
--- NOTE | 2022-08-01 04:40 | PCRCNOTE ---
Patient did not want to be awakened for 0200 updraft treatment. RN aware and patient knows to call if needed. Treatment to resume at 0800.
[2022-08-01] MEDS: CENTRAL LINE FLUSH 10 ML IV PUSH (05:13)
[2022-08-01] MEDS: LEVOTHYROXINE SODIUM 50 MCG TABLET PO (05:13)
[2022-08-01] MEDS: CENTRAL LINE FLUSH 20 ML IV PUSH (05:13)
[2022-08-01 05:26] LABS: Basophils Percent Auto 0.4 % (0.2-1.2); Eosinophils Absolute Auto 0.1 K/mm3 (0-0.3); Hematocrit 25.7 % (42.0-52.0); Hemoglobin 8.5 g/dL (14.0-18.0); Immature Granulocyte Absolute 0.05 K/mm3 (0.00-0.031); Immature Granulocyte Percent A 1.1 % (0-0.5); Immature Platelet Fraction Pct 5.8 % (0.9-11.2); Lymphocytes Absolute Auto 0.51 K/mm3 (0.9-3.2); Lymphocytes Percent Auto 11.4 % (18.3-44.2); Mean Corpuscular HGB Conc 33.1 g/dl (32-36); Mean Corpuscular Volume 96.6 fl (80-100); Mean Platelet Volume 11.2 fl (7.4-10.4); Monocytes Absolute Auto 0.5 K/mm3 (0.1-0.6); Monocytes Percent Auto 11.9 % (2.6-8.5); Neutrophils Absolute Auto 3.3 K/mm3 (1.3-6.7); Neutrophils Percent Auto 73.2 % (45.5-73.1); Platelet Count Result 42 k/mm3 (150-375); Red Blood Count 2.66 M/mm3 (4.6-6.20); Red Cell Distribution Width 18.4 % (11.5-14.5); White Blood Count 4.5 K/mm3 (4.5-10.0)
[2022-08-01 05:42] LABS: Alanine Aminotransferase 16 U/L (6-50); Albumin Level 2.9 g/dL (3.5-5.1); Alkaline Phosphatase 86 U/L (38-126); Anion Gap 3 mmol/L (8-16); Aspartate Amino Transferase 21 U/L (17-59); Bilirubin,Total 1.8 mg/dL (0.2-1.3); Blood Urea Nitrogen 38 mg/dL (9-20); Calcium 7.5 mg/dL (8.4-10.2); Carbon Dioxide 28 mmol/L (22-30); Chloride 99 mmol/L (98-107); Estimated CRCL calculation 28 ml/min; Estimated Glomerular Filt Rate 39; Glucose 88 mg/dL (65-110); Magnesium 1.4 mg/dL (1.6-2.3); Phosphorus 2.8 mg/dL (2.5-4.5); Potassium 3.7 mmol/L (3.4-5.0); Sodium 130 mmol/L (137-145)
[2022-08-01] MEDS: BENZONATATE 100 MG CAPSULE PO ×2 (07:59→14:00)
[2022-08-01] MEDS: MAGNESIUM OXIDE 200 MG TABLET PO (08:00)
[2022-08-01] MEDS: CALCIUM CARBONATE (OSCAL) 500 MG TABLET PO (08:00)
[2022-08-01] MEDS: SACCHAROMYCES BOULARDII 250 MG CAPSULE PO ×2 (08:00→12:00)
[2022-08-01] MEDS: LIDOCAINE 5% PATCH 2 PATCH TRANSDERM (08:00)
[2022-08-01] MEDS: SOLIFENACIN 5 MG TABLET 10 MG PO (08:02)
[2022-08-01] MEDS: PANTOPRAZOLE SODIUM IV 40 MG VIAL IV PUSH (08:02)
[2022-08-01] MEDS: FAMOTIDINE 20 MG TABLET PO (08:02)
[2022-08-01] MEDS: MIDODRINE HCL 2.5 MG TABLET PO ×2 (08:03→12:00)
[2022-08-01] MEDS: MUPIROCIN 2% OINT 22 GM TUBE 1 APPLIC EACH NARE (08:04)
--- NOTE | 2022-08-01 09:09 | PM.PNNEP ---
Progress Note: A&P Assessment and Plan (1) ZORAN (acute kidney injury): Code(s): N17.9 - Acute kidney failure, unspecified Status: Acute Assessment and Plan: he seems to have a baseline of about 1.3. His creatinine seems to be stable at 1.7. He feels better today. Continue to hold diuretics and follow the creatinine. (2) Hyponatremia: Code(s): E87.1 - Hypo-osmolality and hyponatremia Status: Chronic Assessment and Plan: chronic issue due to pre-renal factors and underlying renal insufficiency follow trend of sodiums Off fluid restriction. So dropped to 130. Will check again tomorrow. (3) Influenza A: Code(s): J10.1 - Influenza due to other identified influenza virus with other respiratory manifestations Status: Acute Assessment and Plan: supportie therapy (4) Anemia: Code(s): D64.9 - Anemia, unspecified Status: Acute Assessment and Plan: chronic issue/problems over his last 3 admissions/hospitalizations Getting Epogen. Hemoglobin is 8.5 Hemoccult was negative on the and the 26 of July. (5) Hypokalemia: Code(s): E87.6 - Hypokalemia Status: Acute Assessment and Plan: K+ stable Subjective Date/time seen: 08/01/22 09:09 Interval history: 07/27 alert. in room. we discussed case pt is feeling okay. no cp or sob. some swelling. 07/28 Patient resting comfortably in bed. He is getting Accu-Cheks. He does not know why and wonders if we can stop these. He will talk with hospitalist. No chest pain or shortness of breath. 07/31 Patient feels very thirsty. He was a little lightheaded on his feet today. 08/01 patient feels pretty good today. He is enjoying his fluid, however he is not overdoing it. Minimal swelling Exam Narrative: General: WD/WN male in NAD Heart: normal S1 and S2; no rub Lungs: clear Abdomen: soft, nontender, nondistended, positive bowel sounds Extremities: trace edema Skin: No rash or subcu not Objective Data Vital Signs Vital Signs: Vital Signs - 24 hr 07/31/22 09:13 07/31/22 09:15 07/31/22 13:20 Temperature Pulse Rate 78 72 Respiratory Rate 16 Blood Pressure Pulse Oximetry Oxygen Delivery Room Air 07/31/22 12:00 07/31/22 12:00 07/31/22 16:00 Temperature 97.8 F 98.1 F Pulse Rate 71 72 70 Respiratory Rate 24 H 20 Blood Pressure 98/60 L 94/52 L Pulse Oximetry 98 93 Oxygen Delivery 07/31/22 13:33 07/31/22 16:00 07/31/22 19:57 Temperature Pulse Rate 75 70 71 Respiratory Rate 16 16 Blood Pressure Pulse Oximetry Oxygen Delivery 07/31/22 20:00 07/31/22 20:05 07/31/22 20:00 Temperature 98.1 F Pulse Rate 71 72 69 Respiratory Rate 16 20 Blood Pressure 99/52 L Pulse Oximetry 94 96 Oxygen Delivery Room Air 07/31/22 20:00 08/01/22 00:00 08/01/22 00:00 Temperature 98.5 F Pulse Rate 72 73 75 Respiratory Rate 16 Blood Pressure 93/51 L Pulse Oximetry 92 Oxygen Delivery 08/01/22 04:00 08/01/22 04:00 08/01/22 08:00 Temperature 98.5 F Pulse Rate 80 80 78 Respiratory Rate 20 Blood Pressure 97/53 L Pulse Oximetry 94 Oxygen Delivery Intake/Output Intake/Output: Intake & Output 07/29/22 07/30/22 07/31/22 08/01/22 23:59 23:59 23:59 23:59 Intake Total 1304 1250 720 510 Output Total 357 358 6710 250 Balance 602 650 -305 260 Meds/Results Medications: Active Medications Generic Name Dose Route Start Last Admin Trade Name Magedq PRN Reason Stop Dose Admin Acetaminophen 1,000 mg 07/26/22 01:06 07/27/22 09:40 Acetaminophen 500 Mg Tablet PO 1,000 mg Q6H PRN Administration Mild Pain (1-3) or Fever Hydrocodone Bitart/Acetaminophen 1 tab 07/27/22 12:28 07/27/22 20:56 Hydrocodone/Acetaminophen (*Crx) 5-325 Mg Tablet PO 1 tab Q4H PRN Administration Pain Rated 4-6 Albuter
[2022-08-01] MEDS: IPRATROPIUM BR 0.02% INH SOLN 0.5 MG/2.5 ML VIAL INHALATION (09:13)
[2022-08-01 10:32] LABS: Vancomycin Trough 16.1 ug/mL (10.0-20.0)
[2022-08-01] MEDS: VANCOMYCIN ORAL 125 MG/2.5 ML SYRUP PO (11:45)
--- NOTE | 2022-08-01 13:36 | PM.DS ---
DS: Admitting Diagnosis Discharge Date 08/01/2022 Admitting Diagnosis acute mental status change DS: Discharge Diagnosis Discharge Diagnosis (1) Influenza: Code(s): J11.1 - Influenza due to unidentified influenza virus with other respiratory manifestations Status: Acute Assessment and Plan: Pt found to be positive for influenza A tamiflu started on admission 07/25, end date 07/29/22 Respiratory isolation precautions 07/31/2022 interval history: patient 82-year-old male I discharged him last as patient was treated was Pseudomonas bacteremia and plan continue IV antibiotic for 2 weeks patient will complete vancomycin tomorrow, however patient presented with a acute mental status change and was found to have a influenza A, and was dehydrated resulting in encephalopathy, patient was treated with Tamiflu for 5 day course and gently hydrated, upon arrival patient hemoglobin was low and patient was given 2 units of pack RBC, patient had been seen by GI in the suspect chronic anemia secondary to anticoagulation, today patient is much more alert and oriented his and daughter present in the room, will have a PT OT evaluate the patient, will continue to monitor and further recommendation to follow. (2) ZORAN (acute kidney injury): Code(s): N17.9 - Acute kidney failure, unspecified Status: Acute Assessment and Plan: Improving off diuretics, monitor, appreciate nephrology baseline appears to be 0.8 but has been consistently over 1.3 since 06/21/22 (3) Encephalopathy acute: Code(s): G93.40 - Encephalopathy, unspecified Status: Acute Assessment and Plan: Resolved (4) Leukocytosis: Code(s): D72.829 - Elevated white blood cell count, unspecified Status: Acute Assessment and Plan: Suspect secondary to influenza, monitor (5) Dehydration: Code(s): E86.0 - Dehydration Status: Acute Assessment and Plan: hold diuretics and monitor (6) Diastolic heart failure: Code(s): I50.30 - Unspecified diastolic (congestive) heart failure Status: Acute Assessment and Plan: HFpEF, grade II diast, mild pulm HTN, mild AVS (7) Pleural effusion: Code(s): J90 - Pleural effusion, not elsewhere classified Status: Acute Assessment and Plan: previous thoracentesis performed, cytology neg for malignancy, gram stain and culture not ordered...? may need to repeat and cx fluid (8) Aortic valve stenosis: Code(s): I35.0 - Nonrheumatic aortic (valve) stenosis Status: Acute Assessment and Plan: AVR in 2014, now with recurrent AVS, monitor (9) Elevated troponin: Code(s): R77.8 - Other specified abnormalities of plasma proteins Status: Acute Assessment and Plan: unlikely to be ischemic related, fluctuating, will discontinue monitor (10) Hyponatremia: Code(s): E87.1 - Hypo-osmolality and hyponatremia Status: Chronic Assessment and Plan: Improved to 133 today (11) C. difficile diarrhea: Code(s): A04.72 - Enterocolitis due to Clostridium difficile, not specified as recurrent Status: Acute Assessment and Plan: cont oral vanc 125 mg daily for cdif prophylaxis while on IV vanc for MRSA bacteremia (12) Occult blood in stools: Code(s): R19.5 - Other fecal abnormalities Status: Acute Assessment and Plan: recheck FOBT, previously positive, thought to be from occult GI losses due to prior cdif infection and then chronic collagenous colitis, previously on budesonide, may need to restart this now that cdif is negative (13) Hypothyroidism, unspecified: Code(s): E03.9 - Hypothyroidism, unspecified Status: Acute Assessment and Plan: TSH 2.39 06/17, cont home meds (14) Hypokalemia: Code(s): E87.6 - Hypokalemia Status: Acute Assessment and Plan: 3 today, replace and recheck (15) Blood loss anemia: Code(s):
[2022-08-01 14:07] LABS: EDCOVIDSCREEN Negative (Negative)
== END 2022-08-01 16:25 | DRG 865 ==
LOC: ANHED 17:07 → ANHIMU 19:51 → ANH2MED 07-28 03:21
PROVIDERS: Family Medicine; Internal Medicine Hematology & Oncology; Internal Medicine Nephrology; Admitting Provider Student in an Organized Health Care Education/Training Program; Emergency Provider Emergency Medicine; PCP Family Medicine; Visit Provider Family Medicine
DX: J10.81 Influenza due to other identified influenza virus with encephalopathy (principal); I50.33 Acute on chronic diastolic (congestive) heart failure; N17.9 Acute kidney failure, unspecified; E87.1 Hypo-osmolality and hyponatremia; J90 Pleural effusion, not elsewhere classified; E87.20 Acidosis, unspecified; D69.3 Immune thrombocytopenic purpura; R78.81 Bacteremia; J10.1 Influenza due to other identified influenza virus with other respiratory manifestations; D50.0 Iron deficiency anemia secondary to blood loss (chronic); I11.0 Hypertensive heart disease with heart failure; Z20.822 Contact with and (suspected) exposure to COVID-19; E87.6 Hypokalemia; I48.91 Unspecified atrial fibrillation; N40.0 Benign prostatic hyperplasia without lower urinary tract symptoms; I25.10 Atherosclerotic heart disease of native coronary artery without angina pectoris; K21.9 Gastro-esophageal reflux disease without esophagitis; E86.0 Dehydration; D63.1 Anemia in chronic kidney disease; E03.9 Hypothyroidism, unspecified; I35.0 Nonrheumatic aortic (valve) stenosis; E78.2 Mixed hyperlipidemia; D72.829 Elevated white blood cell count, unspecified; R01.1 Cardiac murmur, unspecified; R19.5 Other fecal abnormalities; Z96.653 Presence of artificial knee joint, bilateral; Z86.15 Personal history of latent tuberculosis infection; Z85.828 Personal history of other malignant neoplasm of skin; Z87.442 Personal history of urinary calculi; Z95.1 Presence of aortocoronary bypass graft; Z95.2 Presence of prosthetic heart valve; Z87.891 Personal history of nicotine dependence; Z79.01 Long term (current) use of anticoagulants; Z86.73 Personal history of transient ischemic attack (TIA), and cerebral infarction without residual deficits
CPT/HCPCS: 36415; 36430; 70450; 71045; 73502; 74177; 80048; 80053; 80202; 81001; 82274; 82550; 82570; 82948; 83010; 83605; 83690; 83735; 83880; 84100; 84156; 84300; 84484; 84540; 85025; 85027; 85046; 85055; 85610; 85730; 86334; 86850; 86880; 86900; 86901; 86923; 87040; 87086; 87426; 87636; 93005; 93308; 94640; 97110; 97161; 97166; 97535; 99285; A9270; C9113; C9803; J1940; J3370; J3480; J7050; J7512; P9016; Q5105; Q9967

== ENCOUNTER 2022-08-19 05:33 | Inpatient (IN) | payer MEDICARE, OTHER, SELFPAY ==
[2022-08-19] VITALS (9 sets, daily range): BP systolic 88–106; BP diastolic 55–63; PULSE 90–119; RESP 14–26; TEMP 35.8–37.2; O2SAT 95–100; BMI 22.9
--- NOTE | ~2022-08-19 | US_ITS ---
EXAMINATION: US renal BI DATE: 08/21/2022 15:34 INDICATION: ZORAN TECHNIQUE: Multiple grayscale and Doppler ultrasound images of the kidneys were obtained. COMPARISON: CT abdomen and pelvis 07/25/2022 FINDINGS: The right kidney measures 12.2 x 5.9 x 6.4 cm. The left kidney measures 12.2 x 5.4 x 5.4 cm. The kidn eys demonstrate normal parenchymal echogenicity. Bilateral simple renal cysts. There is no hydronephr osis. The bladder is normal. IMPRESSION: Unremarkable renal sonogram findings. Reviewed, dictated and finalized at location K. O VISUAL EQUIPMENT RENTAL CLERK
--- NOTE | ~2022-08-19 | XR_ITS ---
EXAM: XR thoracic spine 2V DATE: 08/19/2022 19:44 HISTORY: fall . COMPARISON: None available. FINDINGS: Osteopenia. Intact sternotomy wires. Cardiac valve replacement. Vertebral body alignment i ntact. Vertebral body heights preserved. Multilevel degenerative disc disease with bridging osteophyt es. No traumatic malalignment or fracture. Senescent changes in the lungs. IMPRESSION: No acute fracture or traumatic malalignment detected in the thoracic spine. Reviewed, dictated and finalized at location K. TERINTELLIGENCE/HUMINT SPECIALIST IMPRESSION: No acute fracture or traumatic malalignment detected in the thoraci c spine.
--- NOTE | ~2022-08-19 | XR_ITS ---
EXAMINATION: XR chest 2V Exam Date/Time: 08/19/2022 19:35 PYROMETALLURGICAL ENGINEER HISTORY: fall Comparison: 07/25/2022. RESULT: Lines, tubes, and devices: Intact sternotomy wires. Cardiac valve replacement. Lungs and pleura: Senescent changes. Posterior left costophrenic angle blunting. Cardiomediastinal silhouette: Stable aortic calcification and ectasia.. Other: No acute osseous or upper abdominal finding. IMPRESSION: Small left pleural effusion versus chronic pleural parenchymal scarring. Reviewed, dictated and finalized at location K. METALLURGICAL ENGINEER
--- NOTE | 2022-08-19 05:36 | ECG_ITS ---
Measurements Intervals [place] Rate: 111 P: 79 TN: 195 QRS: -25 QRSD: 110 T: 70 QT: 331 QTc: 450 Interpretive Statements SINUS TACHYCARDIA BASELINE ARTIFACT NONSPECIFIC ST ABNORMALITY BORDERLINE ECG COMPARED TO ECG 07/25/2022 15:12:38 HEART RATE HAS INCREASED Electronically Signed On 08-19-2022 13:36:39 AIRCRAFT MECHANIC by Nadir Macdonald M.D.
[2022-08-19 06:09] LABS: Basophils Absolute Auto 0.1 K/mm3 (0.0-0.1); Basophils Percent Auto 0.9 % (0.2-1.2); Eosinophils Percent Auto 0.2 % (0-4.4); Hemoglobin 9.6 g/dL (14.0-18.0); Immature Granulocyte Absolute 0.19 K/mm3 (0.00-0.031); Immature Granulocyte Percent A 2.1 % (0-0.5); Lymphocytes Absolute Auto 0.75 K/mm3 (0.9-3.2); Lymphocytes Percent Auto 8.4 % (18.3-44.2); Mean Corpuscular HGB Conc 34.3 g/dl (32-36); Mean Corpuscular Hemoglobin 33.2 pg (26-34); Mean Corpuscular Volume 96.9 fl (80-100); Mean Platelet Volume 10.4 fl (7.4-10.4); Monocytes Absolute Auto 0.8 K/mm3 (0.1-0.6); Monocytes Percent Auto 8.5 % (2.6-8.5); Neutrophils Absolute Auto 7.1 K/mm3 (1.3-6.7); Neutrophils Percent Auto 79.9 % (45.5-73.1); Platelet Count Result 143 k/mm3 (150-375); Red Blood Count 2.89 M/mm3 (4.6-6.20); Red Cell Distribution Width 20.1 % (11.5-14.5); White Blood Count 8.9 K/mm3 (4.5-10.0)
[2022-08-19 06:27] LABS: Alanine Aminotransferase 23 U/L (6-50); Albumin Level 3.2 g/dL (3.5-5.1); Alkaline Phosphatase 137 U/L (38-126); Anion Gap 9 mmol/L (8-16); Aspartate Amino Transferase 28 U/L (17-59); Bilirubin,Total 1.2 mg/dL (0.2-1.3); Blood Urea Nitrogen 44 mg/dL (9-20); Calcium 6.9 mg/dL (8.4-10.2); Carbon Dioxide 28 mmol/L (22-30); Chloride 95 mmol/L (98-107); Estimated CRCL calculation 16 ml/min; Estimated Glomerular Filt Rate 24; Glucose 115 mg/dL (65-110); Potassium 2.6 mmol/L (3.4-5.0); Sodium 132 mmol/L (137-145)
--- NOTE | 2022-08-19 06:46 | ED.DIZZY ---
HPI - Dizziness General Chief Complaint: Syncope Stated Complaint: DIZZY/NAUSEA S/P FALL Time Seen by Provider: 08/19/22 05:34 History of Present Illness HPI Narrative: 82-year-old male presenting to the emergency department for a fall associated with a near syncopal episode. Patient states he woke up in the night to use the bathroom and quickly walked to the restroom. Patient states while walking to the restroom he had onset of a near syncopal episode causing him to stumble. Patient did fall into the shower but denies striking head denies any loss of consciousness. While trying to get up the patient's also had a fall and she was also seen in the emergency department as a patient. The patient denies any pain or injury from the fall and states he does feel improved. Patient has had recent issues with anemia which was thought to be due to occult GI blood loss. Patient does have prior history of hypokalemia, hyponatremia, dehydration, Related Data Home Medications Medication Instructions Recorded Confirmed albuterol sulfate 90 mcg/actuation 1 inh inhalation QID PRN Shortness 02/20/20 07/25/22 aerosol inhaler (ProAir HFA) Of Breath solifenacin 10 mg tablet (Vesicare) 10 mg PO DAILY 07/13/21 07/25/22 calcium carb-Ca gluc 500 mg 1 tablet PO DAILY 06/13/22 07/25/22 calcium-magnesium ox-Mg gluc 250 mg tablet (Calcium Magnesium) clobetasol 0.05 % scalp solution 1 applic topical DAILY PRN Skin 06/13/22 07/25/22 Irritation phenazopyridine 100 mg tablet 100 mg PO TID PRN Bladder Spasms 06/13/22 07/25/22 (Pyridium) hydrocortisone 1 %-pramoxine 1 % 1 applic RECTAL DAILY 07/08/22 07/25/22 rectal foam (Proctofoam HC) levothyroxine 50 mcg tablet 50 mcg PO DAILY 07/08/22 07/25/22 (Synthroid) prednisone 10 mg tablet 10 mg PO DIRECTED 07/25/22 07/25/22 Allergies Allergy/AdvReac Type Severity Reaction Status Date / Time sulfamethizole Allergy Unknown Confusion Verified 07/09/22 00:46 sulfamethoxazole Allergy Unknown Confusion Verified 07/09/22 00:46 trimethoprim Allergy Unknown Confusion Verified 07/09/22 00:46 Review of Systems Review of Systems: CONSTITUTIONAL: Denies fever, chills, or sweats. EYES: Denies visual changes, redness, or discharge. ENT: Denies rhinorrhea, congestion, sore throat, or otalgia. CARDIOVASCULAR: Denies chest pain, palpitations, or edema. RESPIRATORY: Denies cough or dyspnea. GASTROINTESTINAL: Denies abdominal pain, nausea, vomiting, or diarrhea. GENITOURINARY: Denies dysuria or hematuria. SKIN: Denies rash or itching. MUSCULOSKELETAL: Denies back pain, joint pain, or myalgia. NEUROLOGIC: See HPI [facility] Past Medical History Medical History (Updated 08/19/22 @ 06:46 by Goran Barker MD) Anemia Aortic valve stenosis Atrial fibrillation Atrial fibrillation with RVR Occurred during admission May 2022 due to sepsis Basal cell carcinoma Blood loss anemia BPH (benign prostatic hyperplasia) Chronic idiopathic thrombocytopenia Collagenous colitis Resulting in chronic loose stools Coronary artery disease Diastolic dysfunction Echocardiogram 04/2022: EF 70% grade 1 diastolic dysfunction, aortic valve prosthesis with good function, moderate pulmonary hypertension Diastolic heart failure Essential hypertension Gastroesophageal reflux Hyponatremia Hypothyroidism, unspecified Influenza A Insomnia Kidney stones Latent tuberculosis Treated with INH in 1959 Mild persistent asthma without complication Mixed hyperlipidemia Thrombocytopenia Surgical History Surgical History (Updated 07/27/22 @ 12:53 by Zbigniew Calvin MD) H/O aortic valve replacement (2013) 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
--- NOTE | 2022-08-19 07:10 | PC.NURSE ---
Patient report given to LORELEI Jacob. All questions answered and care of patient transferred.
[2022-08-19 07:28] LABS: Influenza A QL RT-PCR Negative (Negative); Influenza B QL RT-PCR Negative (Negative); RSV RNA, RT-PCR Negative (Negative); SARS-CoV-2 RNA PCR Negative
[2022-08-19] MEDS: POTASSIUM CHLORIDE 20 MEQ PACKET (FOR LIQUID) 40 MEQ PO (07:48)
[2022-08-19] MEDS: KCL 20 MEQ/SW 100 ML 100 ML 50 MEQ IVPB (07:48)
[2022-08-19] MEDS: SODIUM CHLORIDE 0.9% IV 1,000 ML 999 ML IV CONT (07:48)
[2022-08-19 09:01] LABS: Appearance Urine Slightly Cloudy (Clear); Color Urine Orange (Yellow)
[2022-08-19 09:03] LABS: Add Urine Microscopic? YES
[2022-08-19 09:28] LABS: Mucus Urine Rare /lpf; RBC Urine 51-75 /hpf (0-2); Squamous Epithelial Cell Urine Many /hpf (Few)
--- NOTE | 2022-08-19 10:21 | PC.NURSE ---
Patient care report called to 3rd med/operating room surgical technologist. All questions answered at this time.
--- NOTE | 2022-08-19 10:59 | PC.NURSE ---
This patient, Naga De Leon, was admitted to [facility] Surg Room 328-01. Patient/family oriented to hospital policies and general routines including ID bracelet, bed and alarms, visiting hours, pain management, procedures, bathroom and other care routines, personal items, smoking policy, room service/diet, and visiting hours. Information on how to activate the Rapid Response Team has been discussed. Patient/Family are encouraged to report perceived risks to care and to ask questions if they do not understand what they are told or what they should do.
--- NOTE | 2022-08-19 18:06 | PM.IMHP ---
H&P: HPI History of Present Illness Date/Time: 08/19/22 18:06 Chief Complaint: Dizzy Narrative: 82yo male with AFib, dCHF and CAD here for dizziness and fall. Patient has had multiple hospitalizations this year. He had a prolonged hospitalization for C diff colitis and MRSA bacteremia in May. He was discharged on 07/04. He was readmitted a few days later for lethargy. He was found to have Pseudomonas UTI and MRSA bacteremia again as well as profound anemia. YOLIS was negative on the prior hospitalization. He was hospitalized for 2 weeks and discharged on 07/24 but returned the next day for confusion and found to have influenza. He did complete 21 days of Vancomycin on 08/01 which was the day of discharge. He was discharged to SNF. Patient was at skilled facility for rehab for about 2 weeks. He has been home for about 4-5 days now. Since being at home, patient has been doing well. He denies any lightheadedness with standing. He has been eating and drinking well. No falls. He has stool urgency but no longer has diarrhea. No melena or hematochezia. Early this morning, patient stood and walked to the bathroom with his walker when he fell, falling backwards into the shower. He has pain in his upper back. No joint pain. No neck pain. No head injury. No loss of consciousness. He does states that he was lightheaded when he stood prior to walking which is a new finding. He denies any fever, chills, vision changes, odynophagia, dysphagia, chest pain, palpitations, shortness of breath, cough or hematuria. He does have dyspnea on exertion but this has been chronic and stable. He has been walking in his home from end-to-end which is about 70 ft. He does have dysuria but this is more of a chronic problem for the past 2-3 months and is intermittent. He denies any abdominal pain or lower back pain. No numbness, tingling or weakness in his extremities. Patient's tried to help him get up because he was too weak to get up himself. She fell as well. Patient was brought to the emergency room for evaluation. He denies that he is on diuretics but does take Ambien at night. In the emergency room, blood pressure was normal initially but did drop to 88/55. He was tachycardic at 112. Sodium was 132, potassium 2.6, BUN 44 and creatinine 2 point 6. Calcium was low at 6.9. Hemoglobin was 9.6. COVID, RSV and influenza were negative. Urinalysis showed 50-75 red cells and 7-9 white cells with many squamous epithelial cells and 10-14 hyaline casts. No imaging was performed. EKG showed sinus tachycardia and nonspecific ST abnormalities. No significant change from prior. He was given potassium and IV fluids. He was admitted for further care. Review of Systems Review of Systems: All systems reviewed & are unremarkable except as noted in HPI and below PMFSH Past Medical History Medical History Anemia Aortic valve stenosis Atrial fibrillation Atrial fibrillation with RVR Occurred during admission May 2022 due to sepsis Basal cell carcinoma Blood loss anemia BPH (benign prostatic hyperplasia) Chronic idiopathic thrombocytopenia Collagenous colitis Resulting in chronic loose stools Coronary artery disease Diastolic dysfunction Echocardiogram 04/2022: EF 70% grade 1 diastolic dysfunction, aortic valve prosthesis with good function, moderate pulmonary hypertension Diastolic heart failure Essential hypertension Gastroesophageal reflux Hyponatremia Hypothyroidism, unspecified Influenza A Insomnia Kidney stones Latent tuberculosis Treated with INH in 1959 Mild persistent asthma without complication Mixed hyperlipidemia Thrombocytopenia Surgical History Surgical History H/O aortic valve replacement (2013) Porcine valve Hx of CABG Status post bilateral knee replacements Family History Family History (Reviewed
--- NOTE | 2022-08-19 18:26 | PC.NURSE ---
Attempted to call Jaleesa Pabon twice at 1630 and 1730 to ask for tylenol for patient and to review the patients medication record due to him requesting left voicemail with no response.
[2022-08-19] MEDS: ATORVASTATIN 10 MG TABLET PO (21:22)
[2022-08-19] MEDS: APIXABAN 2.5 MG TABLET PO (21:22)
[2022-08-19] MEDS: FAMOTIDINE 20 MG TABLET PO (21:22)
[2022-08-19] MEDS: SODIUM CHLORIDE 0.9% IV 1,000 ML 70 ML IV CONT (21:22)
[2022-08-19 21:36] LABS: Anion Gap 6 mmol/L (8-16); Blood Urea Nitrogen 39 mg/dL (9-20); Calcium 6.6 mg/dL (8.4-10.2); Carbon Dioxide 26 mmol/L (22-30); Chloride 97 mmol/L (98-107); Creatine Kinase 32 U/L (55-170); Estimated CRCL calculation 23 ml/min; Estimated Glomerular Filt Rate 30; Glucose 105 mg/dL (65-110); Magnesium 0.8 mg/dL (1.6-2.3); Potassium 2.9 mmol/L (3.4-5.0); Sodium 129 mmol/L (137-145)
[2022-08-19] MEDS: BUDESONIDE RESPULE NEB 0.5 MG/2 ML AMP INHALATION (21:43)
[2022-08-20] VITALS (14 sets, daily range): BP systolic 97–111; BP diastolic 54–58; PULSE 99–129; RESP 16–20; TEMP 36.2–37.3; O2SAT 94–98
[2022-08-20 04:49] LABS: Creatinine Urine 100.1 mg/dL
[2022-08-20 04:53] LABS: Sodium Urine Random 17 meq/L
[2022-08-20 05:07] LABS: Eosinophil Urine Rare % (None Seen)
[2022-08-20] MEDS: ACETAMINOPHEN 325 MG TABLET 650 MG PO ×2 (06:21→12:37)
[2022-08-20] MEDS: LEVOTHYROXINE SODIUM 50 MCG TABLET PO (06:22)
[2022-08-20 07:21] LABS: Albumin Level 2.6 g/dL (3.5-5.1); Anion Gap 6 mmol/L (8-16); Blood Urea Nitrogen 36 mg/dL (9-20); Calcium 6.5 mg/dL (8.4-10.2); Carbon Dioxide 25 mmol/L (22-30); Chloride 98 mmol/L (98-107); Estimated CRCL calculation 25 ml/min; Estimated Glomerular Filt Rate 34; Glucose 102 mg/dL (65-110); Magnesium 0.8 mg/dL (1.6-2.3); Phosphorus 2.9 mg/dL (2.5-4.5); Potassium 2.7 mmol/L (3.4-5.0); Sodium 129 mmol/L (137-145)
[2022-08-20] MEDS: POTASSIUM CHLORIDE 20 MEQ TABLET 40 MEQ PO (07:58)
[2022-08-20] MEDS: APIXABAN 2.5 MG TABLET PO ×2 (08:00→20:26)
[2022-08-20] MEDS: SOLIFENACIN 5 MG TABLET 10 MG PO (08:04)
[2022-08-20] MEDS: SACCHAROMYCES BOULARDII 250 MG CAPSULE PO ×3 (08:05→16:31)
[2022-08-20] MEDS: FAMOTIDINE 20 MG TABLET PO ×2 (08:05→20:27)
[2022-08-20] MEDS: MIDODRINE HCL 2.5 MG TABLET PO ×3 (08:06→16:31)
[2022-08-20] MEDS: MAGNESIUM SULFATE 3GM/D5W100ML 3 GM/100 ML BAG IVPB (08:16)
--- NOTE | 2022-08-20 08:38 | PCPTNOTE ---
Patient declines therapy states he has nausea and a headache asked to come back in the afternoon. Patient told physical therapy will see other patients and come back before he leaves for the day.
[2022-08-20] MEDS: BUDESONIDE RESPULE NEB 0.5 MG/2 ML AMP INHALATION ×2 (08:46→21:11)
[2022-08-20] MEDS: POTASSIUM CHLORIDE INJ 40 MEQ in SODIUM CHLORIDE 0.9% IV 500 ML 130 MEQ IVPB (09:33)
--- NOTE | 2022-08-20 13:50 | PM.IMPN ---
Progress Note: A&P Assessment and Plan (1) Fall: Code(s): W19.XXXA - Unspecified fall, initial encounter Status: Acute (2) ZORAN (acute kidney injury): Code(s): N17.9 - Acute kidney failure, unspecified Status: Acute (3) Hyponatremia: Code(s): E87.1 - Hypo-osmolality and hyponatremia Status: Chronic (4) Acute hypokalemia: Code(s): E87.6 - Hypokalemia Status: Acute (5) Atrial fibrillation: Code(s): I48.91 - Unspecified atrial fibrillation Status: Acute (6) Diastolic heart failure: Code(s): I50.30 - Unspecified diastolic (congestive) heart failure Status: Acute (7) Chronic idiopathic thrombocytopenia: Code(s): D69.3 - Immune thrombocytopenic purpura Status: Acute Plan Patient brought to the emergency room because of a fall. Given the elevated creatinine and lightheadedness, suspect patient is dehydrated. He is on Bumex and patient probably over diuresed. Will check urine studies. Continue IV fluids as normal saline. Will hold his Bumex. Will hold metoprolol for now. He is in normal sinus rhythm. Will continue the Eliquis. He has chronic anemia but his hemoglobin is higher than it has been in the past but this could be a false reading and related to dehydration. The low potassium is also probably related to the diuretics and this has been replaced. Will recheck labs tonight and in the morning. Check TSH and cortisol. I have asked nursing staff to verify the home medications since these were his discharge medications from our facility and not discharge medications from the rehab facility. Will not give him Ambien and this was discussed with him in detail. Will check a thoracic x-ray. Will start PT and OT in the hopes that he will be able to go home after this hospitalization. monitor fluid balance given his history of heart failure.UA noted but doubt UTI. Check CXR to exclude occult PNA to explain his weakness. Renal function has had a wide range so unclear on true baseline. Suspect he has some underlying CKD. Check orthostatic vital signs. Murmur appreciated probably related to moderate MR by surface echo (mild by YOLIS in May). 08/20/2022 interval history: patient presented with c/o dizziness and fell suspect dehydration as patient was on Bumex, which is on hold, his electrolyted of off he as significant hypokelamia and hypo magnesium, will replish and monitor, will have PT/OT evaluate the patient and treat, will continue to monitor, Subjective Date/time seen: 08/20/22 13:50 Narrative: 82yo male with AFib, dCHF and CAD here for dizziness and fall. ? Patient has had multiple hospitalizations this year.? He had a prolonged hospitalization for C diff colitis and MRSA? bacteremia in May. He was discharged on 07/04.? He was readmitted a few days later for lethargy. He was found to have Pseudomonas UTI and MRSA bacteremia again as well as profound anemia. YOLIS was negative on the prior hospitalization. He was hospitalized for 2 weeks and discharged on 07/24 but returned the next day for confusion and found to have influenza. He did complete 21 days of Vancomycin on 08/01 which was the day of discharge. He was discharged to SNF. ? Patient was at skilled facility for rehab for about 2 weeks.? He has been home for about 4-5 days now. ? Since being at home, patient has been doing well.? He denies any lightheadedness with standing.? He has been eating and drinking well.? No falls.? He has stool urgency but no longer has diarrhea.? No melena or hematochezia.? Early this morning, patient stood and walked to the bathroom with his walker when he fell, falling backwards into the shower.? He has pain in his upper back.? No joint pain.? No neck pain.? No head injury.? No loss of consciousness.? He does states that he was lightheaded when he stood prior to walking which is a new finding.? He denies any fever, chills, vision changes, odynophagia, dysphagia, chest pain,
[2022-08-20 15:53] LABS: Magnesium 1.8 mg/dL (1.6-2.3)
[2022-08-20 15:57] LABS: Anion Gap 2 mmol/L (8-16); Blood Urea Nitrogen 36 mg/dL (9-20); Calcium 6.7 mg/dL (8.4-10.2); Carbon Dioxide 26 mmol/L (22-30); Chloride 101 mmol/L (98-107); Estimated CRCL calculation 26 ml/min; Estimated Glomerular Filt Rate 36; Glucose 102 mg/dL (65-110); Sodium 129 mmol/L (137-145)
[2022-08-20 16:04] LABS: SARS-CoV-2 RNA PCR Negative
[2022-08-20] MEDS: SODIUM CHLORIDE 0.9% IV 1,000 ML 70 ML IV CONT (17:32)
[2022-08-20] MEDS: ATORVASTATIN 10 MG TABLET PO (20:27)
[2022-08-20] MEDS: MELATONIN 5 MG TABLET PO (23:01)
[2022-08-21] VITALS (15 sets, daily range): BP systolic 85–109; BP diastolic 54–59; PULSE 86–136; RESP 16–18; TEMP 36.1–36.6; O2SAT 93–97
[2022-08-21] MEDS: LEVOTHYROXINE SODIUM 50 MCG TABLET PO (06:10)
[2022-08-21] MEDS: ACETAMINOPHEN 325 MG TABLET 650 MG PO ×2 (06:27→20:42)
[2022-08-21 07:20] LABS: Hematocrit 22.1 % (42.0-52.0); Hemoglobin 7.2 g/dL (14.0-18.0); Mean Corpuscular HGB Conc 32.6 g/dl (32-36); Mean Corpuscular Hemoglobin 32.4 pg (26-34); Mean Corpuscular Volume 99.5 fl (80-100); Mean Platelet Volume 9.5 fl (7.4-10.4); Platelet Count Result 100 k/mm3 (150-375); Red Blood Count 2.22 M/mm3 (4.6-6.20); White Blood Count 4.9 K/mm3 (4.5-10.0)
[2022-08-21 07:29] LABS: Anion Gap 2 mmol/L (8-16); Blood Urea Nitrogen 30 mg/dL (9-20); Calcium 6.8 mg/dL (8.4-10.2); Carbon Dioxide 24 mmol/L (22-30); Chloride 105 mmol/L (98-107); Estimated CRCL calculation 31 ml/min; Estimated Glomerular Filt Rate 45; Glucose 99 mg/dL (65-110); Magnesium 1.4 mg/dL (1.6-2.3); Potassium 3.2 mmol/L (3.4-5.0); Sodium 131 mmol/L (137-145)
[2022-08-21] MEDS: BUDESONIDE RESPULE NEB 0.5 MG/2 ML AMP INHALATION ×2 (09:11→21:33)
[2022-08-21] MEDS: SACCHAROMYCES BOULARDII 250 MG CAPSULE PO ×3 (09:41→16:59)
[2022-08-21] MEDS: SOLIFENACIN 5 MG TABLET 10 MG PO (09:41)
[2022-08-21] MEDS: FLUTICASONE PROPIONATE 0.05% NA SPR 16 GM BTL (*BKC) 2 SPRAY NASAL (09:41)
[2022-08-21] MEDS: APIXABAN 2.5 MG TABLET PO ×2 (09:41→20:21)
[2022-08-21] MEDS: MIDODRINE HCL 2.5 MG TABLET PO ×3 (09:41→16:59)
[2022-08-21] MEDS: FAMOTIDINE 20 MG TABLET PO ×2 (09:41→20:22)
[2022-08-21] MEDS: POTASSIUM CHLORIDE 20 MEQ PACKET (FOR LIQUID) 40 MEQ PO (09:41)
[2022-08-21] MEDS: MAGNESIUM SULF 2 GM/WATER 50ML 2 GM/50 ML BAG IVPB ×2 (09:44→23:52)
[2022-08-21] MEDS: SODIUM CHLORIDE 0.9% IV 1,000 ML 70 ML IV CONT (09:45)
--- NOTE | 2022-08-21 13:21 | PCOTNOTE ---
Attempted to see patient this pm. Pt was sleeping upon entering and declined stating he wanted to nap. Pt requested to come back. Attempted back 30 minutes later, patient was sleeping upon entering and not easily aroused. Did not disturb patient for this reason.
--- NOTE | 2022-08-21 13:41 | PM.IMPN ---
Progress Note: A&P Assessment and Plan (1) Fall: Code(s): W19.XXXA - Unspecified fall, initial encounter Status: Acute (2) ZORAN (acute kidney injury): Code(s): N17.9 - Acute kidney failure, unspecified Status: Acute (3) Hyponatremia: Code(s): E87.1 - Hypo-osmolality and hyponatremia Status: Chronic (4) Acute hypokalemia: Code(s): E87.6 - Hypokalemia Status: Acute (5) Atrial fibrillation: Code(s): I48.91 - Unspecified atrial fibrillation Status: Acute (6) Diastolic heart failure: Code(s): I50.30 - Unspecified diastolic (congestive) heart failure Status: Acute (7) Chronic idiopathic thrombocytopenia: Code(s): D69.3 - Immune thrombocytopenic purpura Status: Acute Plan Patient brought to the emergency room because of a fall. Given the elevated creatinine and lightheadedness, suspect patient is dehydrated. He is on Bumex and patient probably over diuresed. Will check urine studies. Continue IV fluids as normal saline. Will hold his Bumex. Will hold metoprolol for now. He is in normal sinus rhythm. Will continue the Eliquis. He has chronic anemia but his hemoglobin is higher than it has been in the past but this could be a false reading and related to dehydration. The low potassium is also probably related to the diuretics and this has been replaced. Will recheck labs tonight and in the morning. Check TSH and cortisol. I have asked nursing staff to verify the home medications since these were his discharge medications from our facility and not discharge medications from the rehab facility. Will not give him Ambien and this was discussed with him in detail. Will check a thoracic x-ray. Will start PT and OT in the hopes that he will be able to go home after this hospitalization. monitor fluid balance given his history of heart failure.UA noted but doubt UTI. Check CXR to exclude occult PNA to explain his weakness. Renal function has had a wide range so unclear on true baseline. Suspect he has some underlying CKD. Check orthostatic vital signs. Murmur appreciated probably related to moderate MR by surface echo (mild by YOLIS in May). 08/21/2022 interval history: patient presented with c/o dizziness and fell suspect dehydration as patient was on Bumex, which is on hold, his electrolytes were off, he as significant hypokelamia and hypo magnesium, will replish and monitor, today patient states is feeling much better compared to when he arrived, will have PT/OT evaluate the patient and treat, patient states he would like to be discharged home with home health and physical therapy, will discuss ocular care aide further recommendation to follow, will continue to monitor, Subjective Date/time seen: 08/21/22 13:41 Patient brought to the emergency room because of a fall. Given the elevated creatinine and lightheadedness, suspect patient is dehydrated. He is on Bumex and patient probably over diuresed. Will check urine studies. Continue IV fluids as normal saline. Will hold his Bumex. Will hold metoprolol for now. He is in normal sinus rhythm. Will continue the Eliquis. He has chronic anemia but his hemoglobin is higher than it has been in the past but this could be a false reading and related to dehydration. The low potassium is also probably related to the diuretics and this has been replaced. Will recheck labs tonight and in the morning. Check TSH and cortisol. I have asked nursing staff to verify the home medications since these were his discharge medications from our facility and not discharge medications from the rehab facility. Will not give him Ambien and this was discussed with him in detail. Will check a thoracic x-ray. Will start PT and OT in the hopes that he will be able to go home after this hospitalization. monitor fluid balance given his history of heart failure.UA noted but doubt UTI. Check CXR to exclude occult PNA to explain his weak
[2022-08-21] MEDS: metroNIDAZOLE 500 MG/ISO 100ML 500 MG/100 ML BAG 100 MG IVPB (20:18)
[2022-08-21] MEDS: ATORVASTATIN 10 MG TABLET PO (20:23)
--- NOTE | 2022-08-21 21:40 | PCRCNOTE ---
pt HR 132. no complaints of chest pain or palpitations. RN informed due to history of AFIB with RVR.
--- NOTE | 2022-08-21 22:35 | ECG_ITS ---
Measurements Intervals [place] Rate: 134 P: CO: 0 QRS: -31 QRSD: 104 T: 63 QT: 279 QTc: 418 Interpretive Statements ATRIAL FLUTTER/TACHYCARDIA WITH RAPID VENTRICULAR RESPONSE LEFT AXIS DEVIATION ABNORMAL ECG COMPARED TO ECG 08/19/2022 05:41:20 ATRIAL FLUTTER NOW PRESENT LEFT-AXIS DEVIATION NOW PRESENT Electronically Signed On 08-22-2022 17:43:31 MANAGEMENT PROFESSIONAL by Nadir Macdonald M.D.
--- NOTE | 2022-08-21 23:04 | PM.EVENT ---
Event Note Event Note Event Note: 08/21/2022 at 22:45 Nursing staff called to report that the patient had been tachycardic with heart rates in the 130s to 140s for several hours. The patient's blood pressures were soft and 98/56. The patient had just received a Pulmicort treatment. The patient had electrolyte abnormalities this morning and received 40 mEq potassium supplements for potassium at 3.2 and a 2 g magnesium sulfate rider for magnesium of 1.4. The patient does have history of paroxysmal atrial fibrillation in EKG with pain which demonstrated atrial flutter with RVR. Given the patient's borderline low blood pressures I did not feel comfortable managing this on the medical floor and subsequently transfer the patient to the IMU. An additional 20 milk with potassium chloride supplement and 2 g of magnesium sulfate supplement have been ordered. Will aim for goal potassium greater than 4 and magnesium greater than 2 inter to help stabilize patient's myocardium. I went to evaluate the patient. He is pale in sitting up in bed. However appears relatively comfortable. He states that he feels that he is at his baseline. STORAGE GARAGE ATTENDANT checked the patient's blood pressure mother was at bedside and was 80/50 but the patient had a regular-sized that the cough in place and the patient is quite small in the cuff was overlapping. We changes cuff to a small adult cuff in the patient's blood pressures were still low but better at 85/55. On exam patient had irregular heart rate. He had strong radial pulses. Mild lower extremity edema. Given the patient was hypotensive but did not feel it was best to place him on a Cardizem drip and instead switched orders and place patient on amiodarone bolus followed by drip. Cardiology consult has been ordered as well. The patient had previously been on sotalol for AFib but was discontinued it looks like in May. 30 minute spent in critical care activities. Due to a high probability of clinically significant, life threatening deterioration, the patient required my highest level of preparedness to intervene emergently and I personally spent this critical care time directly and personally managing the patient. This critical care time included obtaining a history; examining the patient; pulse oximetry; ordering and review of studies; arranging urgent treatment with development of a management plan; evaluation of patient's response to treatment; frequent reassessment; and discussions with other providers. It was exclusive of separately billable procedures and treating other patients and teaching time. Please see Assessment and Plan section and the rest of the note for further information on patient assessment and treatment.
[2022-08-21] MEDS: POTASSIUM CHLORIDE 20 MEQ TABLET PO (23:48)
[2022-08-22] VITALS (37 sets, daily range): BP systolic 89–126; BP diastolic 51–77; PULSE 80–138; RESP 14–20; TEMP 35.7–36.7; O2SAT 94–99
[2022-08-22] MEDS: SODIUM CHLORIDE 0.9% IV 500 ML 250 ML IV CONT (00:49)
[2022-08-22] MEDS: AMIODARONE 150 MG/D5W 100 ML 150 MG/100 ML BAG 600 MG IV CONT (00:51)
[2022-08-22] MEDS: AMIODARONE 360 MG/D5W 200 ML 360 MG/200 ML BAG 33.33 MG IV CONT (01:02)
--- NOTE | 2022-08-22 02:10 | PC.NURSE ---
This patient, Naga De Leon, was received from [facility] on 08/22/22 at 0025. Patient/family oriented to unit policies and routines. Report received from LORELEI Torres.
[2022-08-22] MEDS: ACETAMINOPHEN 325 MG TABLET 650 MG PO (04:04)
[2022-08-22 05:07] LABS: Mean Corpuscular HGB Conc 32.7 g/dl (32-36); Mean Corpuscular Hemoglobin 32.2 pg (26-34); Mean Corpuscular Volume 98.6 fl (80-100); Mean Platelet Volume 10.3 fl (7.4-10.4); Platelet Count Result 103 k/mm3 (150-375); Red Blood Count 2.08 M/mm3 (4.6-6.20); Red Cell Distribution Width 21.2 % (11.5-14.5); White Blood Count 5.1 K/mm3 (4.5-10.0)
[2022-08-22 05:22] LABS: Hematocrit 20.5 % (42.0-52.0); Hemoglobin 6.7 g/dL (14.0-18.0)
[2022-08-22 05:24] LABS: Anion Gap 3 mmol/L (8-16); Blood Urea Nitrogen 25 mg/dL (9-20); Calcium 6.9 mg/dL (8.4-10.2); Carbon Dioxide 22 mmol/L (22-30); Chloride 105 mmol/L (98-107); Estimated CRCL calculation 31 ml/min; Estimated Glomerular Filt Rate 45; Glucose 102 mg/dL (65-110); Magnesium 2.4 mg/dL (1.6-2.3); Potassium 3.9 mmol/L (3.4-5.0); Sodium 130 mmol/L (137-145)
[2022-08-22] MEDS: metroNIDAZOLE 500 MG/ISO 100ML 500 MG/100 ML BAG 100 MG IVPB ×3 (05:59→20:35)
[2022-08-22] MEDS: LEVOTHYROXINE SODIUM 50 MCG TABLET PO (06:02)
[2022-08-22] MEDS: SODIUM CHLORIDE 0.9% IV 1,000 ML 70 ML IV CONT ×2 (06:03→09:30)
[2022-08-22] MEDS: POTASSIUM CHLORIDE 20 MEQ TABLET PO (06:21)
[2022-08-22] MEDS: AMIODARONE 360 MG/D5W 200 ML 360 MG/200 ML BAG 16.67 MG IV CONT ×2 (07:10→19:45)
[2022-08-22] MEDS: BUDESONIDE RESPULE NEB 0.5 MG/2 ML AMP INHALATION ×2 (08:46→19:36)
[2022-08-22] MEDS: APIXABAN 2.5 MG TABLET PO ×2 (09:30→20:34)
[2022-08-22] MEDS: SACCHAROMYCES BOULARDII 250 MG CAPSULE PO ×3 (09:30→18:52)
[2022-08-22] MEDS: MIDODRINE HCL 2.5 MG TABLET PO ×3 (09:31→18:52)
[2022-08-22] MEDS: FAMOTIDINE 20 MG TABLET PO ×2 (09:31→20:34)
[2022-08-22] MEDS: FLUTICASONE PROPIONATE 0.05% NA SPR 16 GM BTL (*BKC) 2 SPRAY NASAL (09:31)
[2022-08-22] MEDS: SOLIFENACIN 5 MG TABLET 10 MG PO (09:31)
--- NOTE | 2022-08-22 11:40 | ECG_ITS ---
Measurements Intervals [place] Rate: 84 P: 17 SC: 264 QRS: -26 QRSD: 98 T: 45 QT: 389 QTc: 461 Interpretive Statements SINUS RHYTHM WITH FIRST DEGREE AV BLOCK BASELINE ARTIFACT BORDERLINE ECG COMPARED TO ECG 08/21/2022 22:47:25 SINUS RHYTHM NOW PRESENT FIRST DEGREE AV BLOCK NOW PRESENT Electronically Signed On 08-22-2022 17:59:15 FLAT KNITTER by Nadir Macdonald M.D.
--- NOTE | 2022-08-22 12:06 | PM.CNCAR ---
Assessment and Plan Assessment and plan (1) Atrial flutter with rapid ventricular response: Code(s): I48.92 - Unspecified atrial flutter Status: Acute Plan EKG from yesterday appears to be atrial flutter. Was started on amiodarone drip. Tele shows that he now appears to be in sinus rhythm. Will obtain EKG. If he is in sinus, will transition to oral Amiodarone. He had a recent echo showing LVEF 60-65%. Continue with Eliquis. History of Present Illness History of Present Illness Consult date/time: 08/22/22 12:06 Requesting physician: Nupur Morrison, DO Consult reason: atrial fibrillation Reason For Visit: ZORAN/Hypokalemia/Near Syncope Narrative: We are being consulted for atrial fibrillation. Mr. De Leon is well known to us. He is one of Dr. Melton's patients. We last saw him in June for atrial fibrillation/flutter in the setting of sepsis. He had undergone a YOLIS-guided DCCV at that time. We had started him on Sotalol, however, then discontinued it due to a prolonged first-degree AVB and prolonged QTc. He also has a bioprosthetic aortic valve. He presents this time for dizziness and fall. Patient had stood and walked to the bathroom with his walker when he fell, falling backwards into the shower. He did not lose consciousness. BP as low as 88/55 in the ED. Overnight, it appears that patient went into atrial flutter with RVR. BP was soft. Therefore, he was started on Amiodarone drip. Patient states he is feeling okay this morning. Review of Systems Review of Systems: 12-point ROS obtained. Negative, unless stated in HPI. [facility] Past Medical History Medical History Anemia Aortic valve stenosis Atrial fibrillation Atrial fibrillation with RVR Occurred during admission May 2022 due to sepsis Basal cell carcinoma Blood loss anemia BPH (benign prostatic hyperplasia) Chronic idiopathic thrombocytopenia Collagenous colitis Resulting in chronic loose stools Coronary artery disease Diastolic dysfunction Echocardiogram 04/2022: EF 70% grade 1 diastolic dysfunction, aortic valve prosthesis with good function, moderate pulmonary hypertension Diastolic heart failure Essential hypertension Gastroesophageal reflux Hyponatremia Hypothyroidism, unspecified Influenza A Insomnia Kidney stones Latent tuberculosis Treated with INH in 1959 Mild persistent asthma without complication Mixed hyperlipidemia Thrombocytopenia Surgical History Surgical History H/O aortic valve replacement (2013) 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 And 2 children. He smoked up to 4 packs of cigarettes per day but for the most part smoked 1-2 packs of cigarettes per day. He smoked for approximately 30 years but quit in 1991. He reports that he drinks 4 oz of liquor every day which he describes as social drinking. 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 Code status: Full code Surrogate decision maker: Nae () and Cee (youngest daughter) Smoking packs per day: 1 Smoking cigarettes per day: 20.0 Years smoked: 40 Smoking pack-years: 40.00 Smoking status: Former smoker Tobacco type: cigarettes Second hand tobacco smoke exposure: No Smoking end date: 06/23/92 Additional smoking assessment comments: quit in 2000 Alcohol intake: never Alcohol use details: He reports fanta
[2022-08-22] MEDS: BENZONATATE 100 MG CAPSULE 200 MG PO (13:01)
[2022-08-22] MEDS: TUBING, BLOOD PLUM PUMP TUBING 1 EACH XX (13:06)
[2022-08-22 15:46] LABS: Hematocrit 33.6 % (42.0-52.0); Mean Corpuscular HGB Conc 32.7 g/dl (32-36); Mean Corpuscular Hemoglobin 31.6 pg (26-34); Mean Corpuscular Volume 96.6 fl (80-100); Mean Platelet Volume 10.1 fl (7.4-10.4); Platelet Count Result 148 k/mm3 (150-375); Red Blood Count 3.48 M/mm3 (4.6-6.20); Red Cell Distribution Width 19.9 % (11.5-14.5); White Blood Count 8.5 K/mm3 (4.5-10.0)
--- NOTE | 2022-08-22 16:42 | PM.IMPN ---
Progress Note: A&P Assessment and Plan (1) Fall: Code(s): W19.XXXA - Unspecified fall, initial encounter Status: Acute (2) ZORAN (acute kidney injury): Code(s): N17.9 - Acute kidney failure, unspecified Status: Acute (3) Hyponatremia: Code(s): E87.1 - Hypo-osmolality and hyponatremia Status: Chronic (4) Acute hypokalemia: Code(s): E87.6 - Hypokalemia Status: Acute (5) Atrial fibrillation: Code(s): I48.91 - Unspecified atrial fibrillation Status: Acute (6) Diastolic heart failure: Code(s): I50.30 - Unspecified diastolic (congestive) heart failure Status: Acute (7) Chronic idiopathic thrombocytopenia: Code(s): D69.3 - Immune thrombocytopenic purpura Status: Acute Plan Patient brought to the emergency room because of a fall. Given the elevated creatinine and lightheadedness, suspect patient is dehydrated. He is on Bumex and patient probably over diuresed. Will check urine studies. Continue IV fluids as normal saline. Will hold his Bumex. Will hold metoprolol for now. He is in normal sinus rhythm. Will continue the Eliquis. He has chronic anemia but his hemoglobin is higher than it has been in the past but this could be a false reading and related to dehydration. The low potassium is also probably related to the diuretics and this has been replaced. Will recheck labs tonight and in the morning. Check TSH and cortisol. I have asked nursing staff to verify the home medications since these were his discharge medications from our facility and not discharge medications from the rehab facility. Will not give him Ambien and this was discussed with him in detail. Will check a thoracic x-ray. Will start PT and OT in the hopes that he will be able to go home after this hospitalization. monitor fluid balance given his history of heart failure.UA noted but doubt UTI. Check CXR to exclude occult PNA to explain his weakness. Renal function has had a wide range so unclear on true baseline. Suspect he has some underlying CKD. Check orthostatic vital signs. Murmur appreciated probably related to moderate MR by surface echo (mild by YOLIS in May). 08/22/2022 interval history: patient presented with c/o dizziness and fell suspect dehydration as patient was on Bumex, which is on hold, his electrolytes were off, he as significant hypokelamia and hypo magnesium, being supplemented and monitor, yesterday late evening patient went into atrial fibrillation RVR with history PAF, and soft blood pressure, was seen by tomato paste maker, started the patient on amiodarone drip, today patient seen by Cardiology repeat EKG showed sinus rhythm, stop the amiodarone drip and switch over to oral, today patient states is feeling much better compared to when he arrived, will have PT/OT evaluate the patient and treat, patient states he would like to be discharged home with home health and physical therapy, will discuss health care sanitary technician further recommendation to follow, will continue to monitor, Subjective Date/time seen: 08/22/22 16:42 Patient brought to the emergency room because of a fall. Given the elevated creatinine and lightheadedness, suspect patient is dehydrated. He is on Bumex and patient probably over diuresed. Will check urine studies. Continue IV fluids as normal saline. Will hold his Bumex. Will hold metoprolol for now. He is in normal sinus rhythm. Will continue the Eliquis. He has chronic anemia but his hemoglobin is higher than it has been in the past but this could be a false reading and related to dehydration. The low potassium is also probably related to the diuretics and this has been replaced. Will recheck labs tonight and in the morning. Check TSH and cortisol. I have asked nursing staff to verify the home medications since these were his discharge medications from our facility and not discharge medications from the rehab facility. Will not give him Ambien an
[2022-08-22] MEDS: ATORVASTATIN 10 MG TABLET PO (20:34)
[2022-08-23] VITALS (10 sets, daily range): BP systolic 116–137; BP diastolic 70–71; PULSE 78–102; RESP 18–22; TEMP 36.1–36.3; O2SAT 93–99
[2022-08-23 05:06] LABS: Hematocrit 29.6 % (42.0-52.0); Mean Corpuscular HGB Conc 33.8 g/dl (32-36); Mean Corpuscular Hemoglobin 31.6 pg (26-34); Mean Corpuscular Volume 93.7 fl (80-100); Platelet Count Result 110 k/mm3 (150-375); Red Blood Count 3.16 M/mm3 (4.6-6.20); Red Cell Distribution Width 19.9 % (11.5-14.5); White Blood Count 7.2 K/mm3 (4.5-10.0)
[2022-08-23 05:25] LABS: Anion Gap 4 mmol/L (8-16); Blood Urea Nitrogen 21 mg/dL (9-20); Calcium 7.1 mg/dL (8.4-10.2); Carbon Dioxide 19 mmol/L (22-30); Chloride 106 mmol/L (98-107); Estimated CRCL calculation 36 ml/min; Estimated Glomerular Filt Rate 53; Glucose 92 mg/dL (65-110); Magnesium 1.8 mg/dL (1.6-2.3); Potassium 3.8 mmol/L (3.4-5.0); Sodium 129 mmol/L (137-145)
[2022-08-23] MEDS: LEVOTHYROXINE SODIUM 50 MCG TABLET PO (05:38)
[2022-08-23] MEDS: metroNIDAZOLE 500 MG/ISO 100ML 500 MG/100 ML BAG 100 MG IVPB (05:39)
[2022-08-23] MEDS: BUDESONIDE RESPULE NEB 0.5 MG/2 ML AMP INHALATION (09:10)
[2022-08-23] MEDS: SACCHAROMYCES BOULARDII 250 MG CAPSULE PO (09:11)
[2022-08-23] MEDS: SOLIFENACIN 5 MG TABLET 10 MG PO (09:11)
[2022-08-23] MEDS: MIDODRINE HCL 2.5 MG TABLET PO (09:12)
[2022-08-23] MEDS: APIXABAN 2.5 MG TABLET PO (09:12)
[2022-08-23] MEDS: FAMOTIDINE 20 MG TABLET PO (09:12)
[2022-08-23] MEDS: FLUTICASONE PROPIONATE 0.05% NA SPR 16 GM BTL (*BKC) 2 SPRAY NASAL (09:12)
--- NOTE | 2022-08-23 11:07 | PM.PNCARD ---
Progress Note: A&P Assessment and Plan (1) Atrial flutter with rapid ventricular response: Code(s): I48.92 - Unspecified atrial flutter Status: Acute Plan Stop IV amiodarone. Will start oral Amiodarone 200mg QD. Continue with Eliquis. Will have patient follow-up with us in clinic (sees Dr. Melton). Subjective Date/time seen: 08/23/22 11:07 Interval history: Reason for visit: Atrial fibrillation with RVR. Patient feeling well this AM. Converted to sinus rhythm. No cardiac symptoms at this time. He wants to go home. Review of Systems Review of Systems: 8-point ROS obtained. Negative, unless stated in HPI. Exam Const: General: comfortable and no acute distress HENMT: Mouth: Yes moist mucous membranes Eyes: General: appearance normal, both eyes and all related structures Neck: Neck: supple and no JVD Resp: Effort & Inspection: normal respiratory effort Auscultation: diminished lung sounds Cardio: Rate: regular rate Rhythm: regular rhythm Heart sounds: no murmurs GI: GI Palp: Yes Tenderness to palpation present (GI) Skin: General skin exam: normal color Neuro: Speech: normal speech Extrem: General: normal to inspection Psych: Mental Status: mental status grossly normal Affect: normal affect Objective Data Vital Signs Vital Signs: Vital Signs - 24 hr 08/22/22 11:16 08/22/22 12:00 08/22/22 12:16 Temperature 35.9 C L 35.7 C L 36.0 C L Pulse Rate 83 82 88 Respiratory Rate 16 18 18 Blood Pressure 96/56 L 102/56 L 96/53 L Pulse Oximetry 96 98 96 Oxygen Delivery 08/22/22 13:00 08/22/22 13:14 08/22/22 13:29 Temperature 35.9 C L 36.1 C L 36.3 C L Pulse Rate 89 83 81 Respiratory Rate 20 20 20 Blood Pressure 93/60 L 100/56 L 97/57 L Pulse Oximetry 97 96 97 Oxygen Delivery 08/22/22 15:44 08/22/22 12:00 08/22/22 14:00 Temperature 35.9 C L Pulse Rate 83 83 80 Respiratory Rate 20 Blood Pressure 96/57 L Pulse Oximetry 96 Oxygen Delivery 08/22/22 12:00 08/22/22 16:00 08/22/22 16:00 Temperature Pulse Rate 84 Respiratory Rate Blood Pressure Pulse Oximetry Oxygen Delivery Room Air Room Air 08/22/22 13:35 08/22/22 14:35 08/22/22 17:30 Temperature 36.3 C L 36.7 C 36.0 C L Pulse Rate 81 80 88 Respiratory Rate 16 16 14 Blood Pressure 97/57 L 100/56 L 100/59 L Pulse Oximetry 97 97 97 Oxygen Delivery 08/22/22 19:35 08/22/22 19:39 08/22/22 19:45 Temperature Pulse Rate 89 89 88 Respiratory Rate 18 18 Blood Pressure Pulse Oximetry 95 Oxygen Delivery Room Air 08/22/22 19:46 08/22/22 18:00 08/22/22 20:00 Temperature 36.1 C L Pulse Rate 90 85 89 Respiratory Rate 18 18 Blood Pressure 112/53 L Pulse Oximetry 98 Oxygen Delivery 08/22/22 20:00 08/22/22 20:00 08/22/22 22:00 Temperature Pulse Rate 82 89 89 Respiratory Rate 18 Blood Pressure Pulse Oximetry 98 Oxygen Delivery Room Air 08/22/22 23:52 08/23/22 00:00 08/23/22 00:00 Temperature 36.3 C L Pulse Rate 86 86 86 Respiratory Rate 20 20 Blood Pressure 125/77 Pulse Oximetry 99 99 Oxygen Delivery Room Air 08/23/22 02:00 08/23/22 03:15 08/23/22 04:00 Temperature 36.3 C L Pulse Rate 89 93 93 Respiratory Rate 18 Blood Pressure 126/71 Pulse Oximetry 95 Oxygen Delivery 08/23/22 04:00 08/23/22 06:00 08/23/22 08:00 Temperature 36.2 C L Pulse Rate 93 93 101 H Respiratory Rate 18 22 H Blood Pressure 116/70 Pulse Oximetry 95 93 Oxygen Delivery Room Air 08/23/22 09:12 08/23/22 09:12 Temperature Pulse Rate 101 H Respiratory Rate 18 Blood Pressure Pulse Oximetry 96 Oxygen Delivery Room Air Intake/Output Intake/Output: Intake & Output 08/20/22 08/21/22 08/22/22 08/23/22 23:59 23:59 23:59 23:59 Intake Total 3680 2650 4360 Output Total 425 350 200 Balance 3255 2300 4160 Meds/Results Medications: Active Medications Generic Name Dose Route Start Last Admin
--- NOTE | 2022-08-23 11:54 | PM.DS ---
DS: Admitting Diagnosis Discharge Date 08/23/2022 Admitting Diagnosis Altered mental status DS: Discharge Diagnosis Discharge Diagnosis (1) Fall: Code(s): W19.XXXA - Unspecified fall, initial encounter Status: Acute (2) ZORAN (acute kidney injury): Code(s): N17.9 - Acute kidney failure, unspecified Status: Acute (3) Hyponatremia: Code(s): E87.1 - Hypo-osmolality and hyponatremia Status: Chronic (4) Acute hypokalemia: Code(s): E87.6 - Hypokalemia Status: Acute (5) Atrial fibrillation: Code(s): I48.91 - Unspecified atrial fibrillation Status: Acute (6) Diastolic heart failure: Code(s): I50.30 - Unspecified diastolic (congestive) heart failure Status: Acute (7) Chronic idiopathic thrombocytopenia: Code(s): D69.3 - Immune thrombocytopenic purpura Status: Acute Plan Patient brought to the emergency room because of a fall. Given the elevated creatinine and lightheadedness, suspect patient is dehydrated. He is on Bumex and patient probably over diuresed. Will check urine studies. Continue IV fluids as normal saline. Will hold his Bumex. Will hold metoprolol for now. He is in normal sinus rhythm. Will continue the Eliquis. He has chronic anemia but his hemoglobin is higher than it has been in the past but this could be a false reading and related to dehydration. The low potassium is also probably related to the diuretics and this has been replaced. Will recheck labs tonight and in the morning. Check TSH and cortisol. I have asked nursing staff to verify the home medications since these were his discharge medications from our facility and not discharge medications from the rehab facility. Will not give him Ambien and this was discussed with him in detail. Will check a thoracic x-ray. Will start PT and OT in the hopes that he will be able to go home after this hospitalization. monitor fluid balance given his history of heart failure.UA noted but doubt UTI. Check CXR to exclude occult PNA to explain his weakness. Renal function has had a wide range so unclear on true baseline. Suspect he has some underlying CKD. Check orthostatic vital signs. Murmur appreciated probably related to moderate MR by surface echo (mild by YOLIS in May). 08/22/2022 interval history: patient presented with c/o dizziness and fell suspect dehydration as patient was on Bumex, which is on hold, his electrolytes were off, he as significant hypokelamia and hypo magnesium, being supplemented and monitor, yesterday late evening patient went into atrial fibrillation RVR with history PAF, and soft blood pressure, was seen by automotive engineering technician, started the patient on amiodarone drip, today patient seen by Cardiology repeat EKG showed sinus rhythm, stop the amiodarone drip and switch over to oral, today patient states is feeling much better compared to when he arrived, will have PT/OT evaluate the patient and treat, patient states he would like to be discharged home with home health and physical therapy, will discuss critical care registered nurse further recommendation to follow, will continue to monitor, DS: Summary Hospital Course Reason for hospitalization: Chief Complaint: Altered mental status Narrative: 82 year old male sent in by [facility] staff for disorientation. Pt was recently discharged from the hospital, pt had several medical problems in his recent admission and was here almost 2 weeks with Cdiff colitis, sepsis, pseudomonal UTI, MRSA bacteremia, pyelonephritis and pleural effusion. Pt also has a history of and AF, BPH, CHF and hypothyroidism. Pt was discharged to [facility] with PICC line in situ and angulo catheter in situ. Pt denies any fever but has a slight wet cough, denies SOB not on any oxygen presently On this admission pt found to be flu positive influenza A, creat is 1.7 and hb [place] 7.8, [place] [address] sodium is 129, trop slightly elevated, BNP is high [place] 9850. CT abdo/ pelvis shows
[2022-08-23] MEDS: AMIODARONE HCL 200 MG TABLET PO (11:57)
[2022-08-23 13:41] LABS: EDCOVIDSCREEN Negative (Negative)
== END 2022-08-23 14:15 | disposition home health service (06) | DRG 641 ==
LOC: ANHED 06:46 → ANH3MEDSUR 10:05 → ANHIMU 08-22 09:30 → ANH3MEDSUR 08-24 14:40 → ANHIMU 08-24 14:40
PROVIDERS: Internal Medicine; Admitting Provider Student in an Organized Health Care Education/Training Program; Emergency Provider Emergency Medicine; PCP Family Medicine; Visit Provider Family Medicine
DX: E86.0 Dehydration (principal); N17.9 Acute kidney failure, unspecified; D69.3 Immune thrombocytopenic purpura; I50.30 Unspecified diastolic (congestive) heart failure; E87.1 Hypo-osmolality and hyponatremia; E87.6 Hypokalemia; I48.91 Unspecified atrial fibrillation; T50.1X5A Adverse effect of loop [high-ceiling] diuretics, initial encounter; Z20.822 Contact with and (suspected) exposure to COVID-19; N40.0 Benign prostatic hyperplasia without lower urinary tract symptoms; E03.9 Hypothyroidism, unspecified; E78.2 Mixed hyperlipidemia; I25.10 Atherosclerotic heart disease of native coronary artery without angina pectoris; W19.XXXA Unspecified fall, initial encounter; Z95.1 Presence of aortocoronary bypass graft; Z96.653 Presence of artificial knee joint, bilateral; Z95.2 Presence of prosthetic heart valve; Z87.891 Personal history of nicotine dependence; Z79.51 Long term (current) use of inhaled steroids; Z79.899 Other long term (current) drug therapy; Z79.52 Long term (current) use of systemic steroids; Z79.890 Hormone replacement therapy; Z88.0 Allergy status to penicillin
CPT/HCPCS: 36415; 36430; 71046; 72070; 76775; 80048; 80053; 80069; 81001; 82533; 82550; 82570; 83735; 84300; 84443; 85025; 85027; 85055; 85999; 86850; 86900; 86901; 86923; 87086; 87088; 87426; 87637; 93005; 94640; 96365; 96366; 96367; 97110; 97116; 97161; 97165; 99285; A9270; C9803; G0378; J0282; J3475; J3480; J7030; J7040; P9016; U0003; U0005

== ENCOUNTER 2022-08-31 11:41 | Inpatient (IN) | payer MEDICARE, OTHER, SELFPAY ==
[2022-08-31] VITALS (21 sets, daily range): BP systolic 90–139; BP diastolic 50–93; PULSE 104–140; RESP 20–31; TEMP 36.6; O2SAT 95–100; BMI 24.5
--- NOTE | ~2022-08-31 | XR_ITS ---
Portable chest x-ray Comparison: 09/10/2022 Clinical History: Mediport placement Findings: Left-sided Mediport in satisfactory position. Probable small bilateral pleural effusions w ith mild pulmonary edema pattern and bibasilar atelectasis. Cardiomediastinal silhouette is stable, status post aortic valve replacement. Bones and soft tissues are unremarkable. Impression: Left-sided Mediport in place. Probable small pleural effusions with mild pulmonary edema and bibasilar atelectasis. Reviewed, dictated and finalized at location . SPORTATION ASSISTANT Impression: Left-sided Mediport in place. Probable small pleural effusions with mild pulmonary edema and bibasilar atelec tasis.
--- NOTE | ~2022-08-31 | US_ITS ---
EXAMINATION: US renal BI DATE: 09/09/2022 08:30 INDICATION: Acute kidney injury TECHNIQUE: Multiple grayscale and Doppler ultrasound images of the kidneys were obtained. COMPARISON: 08/21/2022 FINDINGS: The right kidney measures 11 x 5.6 x 4.3 cm and contains multiple cysts measuring up to 3.2 cm. The left kidney measures 11.7 x 5.6 x 3.8 cm and contains multiple cysts measuring up to 1.9 cm. The kidneys demonstrate normal parenchymal echogenicity. There is no hydronephrosis. The bladder dem onstrates mild wall thickening which could be due to incomplete distention. IMPRESSION: 1. Cysts of the otherwise normal kidneys without hydronephrosis. Reviewed, dictated and finalized at location F. UE KILN PLACER
--- NOTE | ~2022-08-31 | XR_ITS ---
EXAMINATION: XR fl guide central line place DATE: 09/12/2022 12:49 INDICATION: Port catheter insertion TECHNIQUE: 2 fluoroscopic images of the left and central chest were obtained during procedure perform ed by Dr. Holt. Radiologist was not present for the imaging or procedure. The amount of fluoroscopy time used during this procedure was 0.5 minutes. COMPARISON: None. FINDINGS: Left subclavian central venous port catheter with distal tip at the cephalad superior vena cava. Medi an sternotomy wires. No evident pneumothorax. IMPRESSION: 1. Left subclavian central venous port catheter with distal tip at the cephalad superior vena cava. Reviewed, dictated and finalized at location A. FARMER
--- NOTE | ~2022-08-31 | CT_ITS ---
EXAMINATION: CT brain wo con DATE: 09/04/2022 10:09 INDICATION: Confusion. Fall. TECHNIQUE: Computed tomography (CT) of the head was performed without intravenous contrast. The mA wa s adjusted according to patient size. Iterative reconstruction technique was employed. The dose-lengt h product was 605.33 mGy-cm. COMPARISON: Head CT 07/25/2022 FINDINGS: There is a small old infarct in right cerebellum. There is an old lacunar infarct in the ri ght caudate nucleus. There are scattered areas of low attenuation in the cerebral white matter. There is no intracranial hemorrhage, acute infarction, or abnormal intracranial mass lesion. The ventricle s are normal in size. The orbits are normal. There is mucosal thickening in the paranasal sinuses, wo rst in right maxillary sinus. The mastoid air cells are normal. There is a left lateral scalp soft ti ssue swelling. IMPRESSION: 1. 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 2. Stable extensive nonspecific cerebral white matter disease, which likely represents chronic small vessel ischemic disease. Reviewed, dictated and finalized at location A. INE SLAT BASKET MAKER IMPRESSION: 1. 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 2. Stable extensive nonspecific cerebral white matter disease, which likely rep resents chronic small vessel ischemic disease.
--- NOTE | ~2022-08-31 | XR_ITS ---
XR chest 2V DATE: 09/10/2022 11:02 INDICATION: Shortness of breath, cough TECHNIQUE: AP and lateral views COMPARISON: 08/31/2022 AP and lateral chest FINDINGS: There is prominent atelectasis and patchy consolidation in both lower lung zones and sugges tion of mild bilateral pleural effusions. Status post sternotomy and aortic valve replacement. Heart size appears within normal range. Is aorti c calcification and unfolding. IMPRESSION: Prominent bilateral lower lung infiltrate and/atelectasis, increased since 08/31/2022 Small pleural effusions Status post sternotomy and aortic valve replacement Reviewed, dictated and finalized at location A. L MANAGER IMPRESSION: Prominent bilateral lower lung infiltrate and/atelectasis, increase d since 08/31/2022 Small pleural effusions Status post sternotomy and aortic valve replacement
--- NOTE | ~2022-08-31 | XR_ITS ---
Clinical Indication: Shortness of breath PA and lateral views of the chest: Comparison: 08/19/2022 Findings: Small bilateral pleural effusions are present with bibasilar pulmonary edema/atelectasis.. Cardiomediastinal silhouette is stable, status post aortic valve replacement. Bones and soft tissues are unremarkable. Impression: Small bilateral pleural effusions with mild bibasilar pulmonary edema/atelectasis. Status post aortic valve replacement. Reviewed, dictated and finalized at location . RT SERVICE ATTENDANT Impression: Small bilateral pleural effusions with mild bibasilar pulmonary edema/atelectas is. Status post aortic valve replacement.
--- NOTE | 2022-08-31 11:51 | ECG_ITS ---
Measurements Intervals [place] Rate: 114 P: TN: 0 QRS: 29 QRSD: 91 T: 66 QT: 312 QTc: 431 Interpretive Statements SINUS OR ECTOPIC ATRIAL TACHYCARDIA WITH FIRST DEGREE AV BLOCK BASELINE ARTIFACT- I, II, III, AVR, AVL, AVF ABNORMAL ECG COMPARED TO ECG 08/22/2022 12:41:23 SINUS OR ECTOPIC ATRIAL TACHYCARDIA NOW PRESENT Electronically Signed On 08-31-2022 13:11:49 EFFICIENCY ENGINEER by El Toth D.O.
[2022-08-31 12:19] LABS: Basophils Percent Auto 0.4 % (0.2-1.2); Hematocrit 29.2 % (42.0-52.0); Hemoglobin 9.4 g/dL (14.0-18.0); Immature Granulocyte Absolute 0.08 K/mm3 (0.00-0.031); Immature Granulocyte Percent A 0.7 % (0-0.5); Lymphocytes Absolute Auto 1.16 K/mm3 (0.9-3.2); Lymphocytes Percent Auto 10.8 % (18.3-44.2); Mean Corpuscular HGB Conc 32.2 g/dl (32-36); Mean Corpuscular Hemoglobin 32.2 pg (26-34); Mean Platelet Volume 10.1 fl (7.4-10.4); Monocytes Absolute Auto 0.8 K/mm3 (0.1-0.6); Monocytes Percent Auto 7.1 % (2.6-8.5); Neutrophils Absolute Auto 8.7 K/mm3 (1.3-6.7); Platelet Count Result 120 k/mm3 (150-375); Red Blood Count 2.92 M/mm3 (4.6-6.20); Red Cell Distribution Width 19.7 % (11.5-14.5); White Blood Count 10.7 K/mm3 (4.5-10.0)
[2022-08-31 12:25] LABS: Alanine Aminotransferase 21 U/L (6-50); Albumin Level 2.8 g/dL (3.5-5.1); Alkaline Phosphatase 112 U/L (38-126); Anion Gap 5 mmol/L (8-16); Aspartate Amino Transferase 25 U/L (17-59); Bilirubin,Total 0.8 mg/dL (0.2-1.3); Blood Urea Nitrogen 18 mg/dL (9-20); Calcium 7.8 mg/dL (8.4-10.2); Carbon Dioxide 23 mmol/L (22-30); Chloride 104 mmol/L (98-107); Estimated CRCL calculation 28 ml/min; Estimated Glomerular Filt Rate 39; Glucose 107 mg/dL (65-110); Potassium 4.2 mmol/L (3.4-5.0); Sodium 132 mmol/L (137-145)
--- NOTE | 2022-08-31 13:21 | ED.SOB ---
HPI - SOB/Dyspnea General Chief Complaint: Shortness of Breath/Dyspnea Stated Complaint: SOB today Time Seen by Provider: 08/31/22 13:21 Related Data Home Medications Medication Instructions Recorded Confirmed albuterol sulfate 90 mcg/actuation 1 inh inhalation QID PRN Shortness 02/20/20 08/25/22 aerosol inhaler (ProAir HFA) Of Breath solifenacin 10 mg tablet (Vesicare) 10 mg PO DAILY 07/13/21 08/25/22 calcium carb-Ca gluc 500 mg 1 tablet PO DAILY 06/13/22 08/25/22 calcium-magnesium ox-Mg gluc 250 mg tablet (Calcium Magnesium) clobetasol 0.05 % scalp solution 1 applic topical DAILY PRN Skin 06/13/22 08/25/22 Irritation phenazopyridine 100 mg tablet 100 mg PO TID PRN Bladder Spasms 06/13/22 08/25/22 (Pyridium) hydrocortisone 1 %-pramoxine 1 % 1 applic RECTAL DAILY 07/08/22 08/25/22 rectal foam (Proctofoam HC) levothyroxine 50 mcg tablet 50 mcg PO DAILY 07/08/22 08/25/22 (Synthroid) Allergies Allergy/AdvReac Type Severity Reaction Status Date / Time sulfamethizole Allergy Unknown Confusion Verified 08/31/22 12:27 sulfamethoxazole Allergy Unknown Confusion Verified 08/31/22 12:27 trimethoprim Allergy Unknown Confusion Verified 08/31/22 12:27 [facility] Past Medical History Medical History (Updated 08/31/22 @ 09:57 by Doris Ingram MD) Anemia Aortic valve stenosis Atrial fibrillation Atrial fibrillation with RVR Occurred during admission May 2022 due to sepsis Basal cell carcinoma Blood loss anemia BPH (benign prostatic hyperplasia) Chronic idiopathic thrombocytopenia Collagenous colitis Resulting in chronic loose stools Coronary artery disease Diastolic dysfunction Echocardiogram 04/2022: EF 70% grade 1 diastolic dysfunction, aortic valve prosthesis with good function, moderate pulmonary hypertension Diastolic heart failure Essential hypertension Gastroesophageal reflux Hyponatremia Hypothyroidism, unspecified Insomnia Kidney stones Latent tuberculosis Treated with INH in 1959 Mild persistent asthma without complication Mixed hyperlipidemia Thrombocytopenia Surgical History Surgical History H/O aortic valve replacement (2013) 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 And 2 children. He smoked up to 4 packs of cigarettes per day but for the most part smoked 1-2 packs of cigarettes per day. He smoked for approximately 30 years but quit in 1991. He reports that he drinks 4 oz of liquor every day which he describes as social drinking. 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 Code status: Full code Surrogate decision maker: Nae () and Cee (youngest daughter) Smoking packs per day: 1 Smoking cigarettes per day: 20.0 Years smoked: 40 Smoking pack-years: 40.00 Smoking status: Former smoker Tobacco type: cigarettes Second hand tobacco smoke exposure: No Smoking end date: 06/23/92 Additional smoking assessment comments: quit in 2000 Alcohol intake: never Alcohol use details: He reports that he drinks 4 oz of liquor every day. Substance use: never Substance use type: does not use Other substance usage details: 1 cocktail/day when he was well Lack of Transportation: No Lack of Food: Never True Current Housing: I Have Housing Concerned About Future Housing: No Difficulty Paying Gas/Electric Bills: No Difficulty Paying for Meds: No Currently Unemployed: No
--- NOTE | 2022-08-31 13:21 | ED.SOB ---
HPI - SOB/Dyspnea General Chief Complaint: Shortness of Breath/Dyspnea Stated Complaint: SOB today Time Seen by Provider: 08/31/22 13:21 Source: patient and family Mode of arrival: ambulatory Limitations: no limitations History of Present Illness HPI Narrative: 82 years old white male came from home by ambulance complaining of weakness noticed this morning. Patient have history of chronic shortness of breath for 3 years, today is not different than before. He denies any fever, chills, nausea, vomiting. Patient is concerning for blood transfusion because of chronic anemia. Is scheduled for blood transfusion tomorrow. Related Data Home Medications Medication Instructions Recorded Confirmed albuterol sulfate 90 mcg/actuation 1 inh inhalation QID PRN Shortness 02/20/20 08/25/22 aerosol inhaler (ProAir HFA) Of Breath solifenacin 10 mg tablet (Vesicare) 10 mg PO DAILY 07/13/21 08/25/22 calcium carb-Ca gluc 500 mg 1 tablet PO DAILY 06/13/22 08/25/22 calcium-magnesium ox-Mg gluc 250 mg tablet (Calcium Magnesium) clobetasol 0.05 % scalp solution 1 applic topical DAILY PRN Skin 06/13/22 08/25/22 Irritation phenazopyridine 100 mg tablet 100 mg PO TID PRN Bladder Spasms 06/13/22 08/25/22 (Pyridium) hydrocortisone 1 %-pramoxine 1 % 1 applic RECTAL DAILY 07/08/22 08/25/22 rectal foam (Proctofoam HC) levothyroxine 50 mcg tablet 50 mcg PO DAILY 07/08/22 08/25/22 (Synthroid) Allergies Allergy/AdvReac Type Severity Reaction Status Date / Time sulfamethizole Allergy Unknown Confusion Verified 08/31/22 12:27 sulfamethoxazole Allergy Unknown Confusion Verified 08/31/22 12:27 trimethoprim Allergy Unknown Confusion Verified 08/31/22 12:27 Review of Systems Review of Systems: All systems reviewed & are unremarkable except as noted in HPI and below PMFSH Past Medical History Medical History Anemia Aortic valve stenosis Atrial fibrillation Atrial fibrillation with RVR Occurred during admission May 2022 due to sepsis Basal cell carcinoma Blood loss anemia BPH (benign prostatic hyperplasia) Chronic idiopathic thrombocytopenia Collagenous colitis Resulting in chronic loose stools Coronary artery disease Diastolic dysfunction Echocardiogram 04/2022: EF 70% grade 1 diastolic dysfunction, aortic valve prosthesis with good function, moderate pulmonary hypertension Diastolic heart failure Essential hypertension Gastroesophageal reflux Hyponatremia Hypothyroidism, unspecified Insomnia Kidney stones Latent tuberculosis Treated with INH in 1959 Mild persistent asthma without complication Mixed hyperlipidemia PSVT (paroxysmal supraventricular tachycardia) Thrombocytopenia Surgical History Surgical History H/O aortic valve replacement (2013) 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 And 2 children. He smoked up to 4 packs of cigarettes per day but for the most part smoked 1-2 packs of cigarettes per day. He smoked for approximately 30 years but quit in 1991. He reports that he drinks 4 oz of liquor every day which he describes as social drinking. 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 Code status: Full code Surrogate decision maker: Nae () and Cee (youngest daughter) Smoking packs per day: 1 Smoking cigarettes per day: 20.0 Years smoked: 40 Smoking pack-years: 40.00
--- NOTE | 2022-08-31 14:04 | PCRCNOTE ---
ABG CANCELED PER DR LEWIS
[2022-08-31] MEDS: SODIUM CHLORIDE 0.9% IV 1,000 ML 999 ML IV CONT (14:40)
[2022-08-31 15:33] LABS: Add Urine Microscopic? YES; Appearance Urine Slightly Cloudy (Clear); Bilirubin Urine 1+ (Negative); Blood Urine 3+ (Negative); Color Urine Orange (Yellow); Glucose Urine UA Trace mg/dL (Negative); Ketones Urine Negative (Negative); Leukocyte Esterase Ur Trace LEU/UL (Negative); Nitrate Urine Positive (Negative); Protein Urine 1+ mg/dL (Negative); Specific Grav Ur 1.015 (1.001-1.035); pH Urine 5.5 (5.0-9.0)
--- NOTE | 2022-08-31 15:33 | ECG_ITS ---
Measurements Intervals [place] Rate: 138 P: SC: 0 QRS: 5 QRSD: 97 T: 56 QT: 266 QTc: 404 Interpretive Statements SUPRAVENTRICULAR TACHYCARDIA, CONSIDER ATRIAL TACHYCARDIA LOW QRS VOLTAGE IN LIMB LEADS BASELINE ARTIFACT- I, II, III, AVR, AVL, AVF, V1-V2 ABNORMAL ECG COMPARED TO ECG 08/31/2022 12:04:22 SUPRAVENTRICULAR TACHYCARDIA NOW PRESENT Electronically Signed On 08-31-2022 16:16:28 FOAMING MACHINE OPERATOR by El Toth D.O.
[2022-08-31 15:48] LABS: Bacteria Urine Trace /hpf; Mucus Urine Rare /lpf; RBC Urine >75 /hpf (0-2); Squamous Epithelial Cell Urine Few /hpf (Few)
[2022-08-31] MEDS: ADENOSINE IV SOLN 6 MG/2 ML VIAL IV PUSH (15:52)
[2022-08-31] MEDS: ADENOSINE IV SOLN 6 MG/2 ML VIAL 12 MG IV PUSH (15:54)
--- NOTE | 2022-08-31 16:05 | PC.NURSE ---
Dr. Padilla at bedside, with crash cart in room. PT given 6mg rapid IVP at 1552, HR decreased to 100afib, return to SVT. PT given 12mg rapid IVP at 1554, HR to 70s and return to SVT at 130
[2022-08-31] MEDS: AMIODARONE 150 MG/D5W 100 ML 150 MG/100 ML BAG 600 MG IV CONT ×2 (16:25→16:40)
[2022-08-31] MEDS: AMIODARONE 360 MG/D5W 200 ML 360 MG/200 ML BAG 16.67 MG IV CONT (17:13)
--- NOTE | 2022-08-31 17:30 | PM.IMHP ---
H&P: HPI History of Present Illness Date/Time: 08/31/22 17:30 Chief Complaint: Shortness of breath. Narrative: This is a pleasant 82-year-old male with history of atrial fibrillation, atrial flutter, supraventricular tachycardia, diastolic heart failure, coronary artery disease, pulmonary hypertension, aortic valve replacement, hypertension, benign prostatic hyperplasia, anemia, and other comorbidities who presented to the emergency department from home for evaluation of shortness of breath. He is well known to the hospitalist service from several recent, lengthy admissions: 06/13/2022 (admitted with MRSA bacteremia, no vegetations noted on YOLIS, complicated by C diff colitis), 07/08/2022 (sepsis, pyelonephritis, acute kidney injury, worsening anemia), 07/25/2022 (altered mental status, influenza a), 08/19/2022 (dizziness, hypotension, hypokalemia complicated by atrial flutter/RVR treated with amiodarone). Prior to May he was getting up and about the home and helping care for his . Unfortunately his condition has declined due to these multiple admissions and he has gotten increasingly more weak, using a walker at home and a wheelchair when out of the home. PT/OT was in-home yesterday and he did participate. This morning however he seemed to be increasingly short of breath and daughter notes that he was having conversational dyspnea. Vital signs were stable on arrival to the ED however he went into SVT shortly after getting into a room. He converted with adenosine but then went into atrial flutter with rapid ventricular response and he is currently on an amiodarone drip with some improvement in his rate. He has no complaints at the time my evaluation and he specifically denies syncope, near syncope, fever, chills, sweats, cold and flu symptoms, chest pain, pleuritic pain, cough, nausea, vomiting, and dysuria. He does admit that his appetite has been poor for quite some time due to the fact that nothing sounds good and he has lost about 20 pounds. He has occasional loose stools but nothing significant. Review of Systems Review of Systems: Twelve systems were reviewed and are negative except for as per HPI. [facility] Past Medical History Medical History Anemia Aortic valve stenosis Atrial fibrillation Atrial fibrillation with RVR Occurred during admission May 2022 due to sepsis Basal cell carcinoma Blood loss anemia BPH (benign prostatic hyperplasia) Chronic idiopathic thrombocytopenia Collagenous colitis Resulting in chronic loose stools Coronary artery disease Diastolic dysfunction Echocardiogram 04/2022: EF 70% grade 1 diastolic dysfunction, aortic valve prosthesis with good function, moderate pulmonary hypertension Diastolic heart failure Essential hypertension Gastroesophageal reflux Hyponatremia Hypothyroidism, unspecified Insomnia Kidney stones Latent tuberculosis Treated with INH in 1959 Mild persistent asthma without complication Mixed hyperlipidemia PSVT (paroxysmal supraventricular tachycardia) Thrombocytopenia Surgical History Surgical History H/O aortic valve replacement (2013) 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 And 2 children. He smoked up to 4 packs of cigarettes per day but for the most part smoked 1-2 packs of cigarettes per day. He smoked for approximately 30 years but quit in
[2022-08-31 17:52] LABS: Influenza A QL RT-PCR Negative (Negative); Influenza B QL RT-PCR Negative (Negative); SARS-CoV-2 RNA PCR Negative
--- NOTE | 2022-08-31 19:30 | PM.CNCAR ---
Assessment and Plan Assessment and plan (1) Atrial flutter with rapid ventricular response: Code(s): I48.92 - Unspecified atrial flutter Status: Acute Assessment and Plan: Recurrent (probable) atrial flutter RVR associated with shortness of breath. Had atrial flutter associated staph sepsis in May, status post cardioversion. Recurrent atrial flutter EF in July. Recurrent atrial flutter today, possible exacerbated by his exacerbation of CHF. Started on amiodarone drip in the emergency room Hopefully he will convert again with IV amiodarone and we will resume p.o. amiodarone probably at a higher dose. He had been discharged with low-dose amiodarone and low-dose metoprolol last time since there was a concern regarding bradycardia. Continue Eliquis as his anemia tolerates. (2) Acute on chronic diastolic CHF (congestive heart failure): Code(s): I50.33 - Acute on chronic diastolic (congestive) heart failure Status: Acute Assessment and Plan: Previously was taking Bumex 2 mg b.i.d., but it appears it he was discharged without it because of his hypotension and acute kidney injury in July. Chest x-ray was clear on discharge in July but now has bilateral pleural effusions. Resume diuretic. BP now somewhat soft, so will will try p.o. Bumex, 2 mg b.i.d. to see how that is tolerated. (3) Hypotension: Code(s): I95.9 - Hypotension, unspecified Status: Acute Assessment and Plan: Blood pressure was surprisingly good on admission to the ER but now is running in the 90s on amiodarone. Has had chronic problems with hypotension. May have a UTI Check blood cultures Increase midodrine to 5 mg t.i.d.. (4) PSVT (paroxysmal supraventricular tachycardia): Code(s): I47.1 - Supraventricular tachycardia Status: Acute Assessment and Plan: History of PSVT in the past, controlled with a beta-bhanu in the past with recurrence today. (5) Frailty: Code(s): R54 - Age-related physical debility Status: Acute Assessment and Plan: Patient was in good health and able to cut the grass in March per is been very sick with multiple admissions as described above through the fall and winter. However, his renal function has been stable, he has been at home for the last 10 days, his anemia has been reasonably stable, his thrombocytopenia has been stable and his blood pressure overall has improved. He is participating in physical and occupational therapy. Hopefully he will slowly recover, though of course, with his multiple problems and deconditioning, he may not. (6) CKD (chronic kidney disease): Code(s): N18.9 - Chronic kidney disease, unspecified Status: Acute Assessment and Plan: Fairly stable (7) Anemia: Code(s): D64.9 - Anemia, unspecified Status: Acute Assessment and Plan: Fairly stable; has required intermittent transfusions. (8) S/P aortic valve replacement with bioprosthetic valve: Code(s): Z95.3 - Presence of xenogenic heart valve Status: Acute Assessment and Plan: Normal valve function. Normal left ventricular function, EF 60-65%. Does have moderate mitral regurgitation. TEEs have not showed any vegetations. History of Present Illness History of Present Illness Consult date/time: 08/31/22 19:30 Naga De Leon is an 82-year-old male whom we were asked to see at the request of Dr. Padilla for advice and opinion regarding treatment of his SVT and atrial flutter RVR. He has a history of aortic valve replacement in 2013. Reason For Visit: Tachyarrhythmia,Dehydration,UTI,Weakness Narrative: 03/2022 office visit: Patient doing well, able to cut the grass, good functional status. 06/13/2022: Admitted with MRSA bacteremia and septic shock. Had acute kidney failure and thrombocytopenia/ITP. Had a AFib RVR, status post cardioversion. Sotalol changed amiodarone due to prolonge
[2022-08-31] MEDS: SODIUM CHLORIDE 0.9% IV 1,000 ML 125 ML IV CONT (19:42)
[2022-08-31] MEDS: MIDODRINE HCL 2.5 MG TABLET 5 MG PO (21:16)
[2022-08-31] MEDS: FUROSEMIDE INJ 40 MG/4 ML VIAL IV PUSH (21:16)
[2022-08-31] MEDS: BUMETANIDE 1 MG TABLET 2 MG PO (21:16)
--- NOTE | 2022-08-31 21:59 | ADMGEN ---
This patient, Naga De Leon, was admitted to Virtual [facility]. Patient/family oriented to hospital policies and general routines including ID bracelet, bed and alarms, visiting hours, pain management, procedures, bathroom and other care routines, personal items, smoking policy, room service/diet, and visiting hours. Information on how to activate the Rapid Response Team has been discussed. Patient/Family are encouraged to report perceived risks to care and to ask questions if they do not understand what they are told or what they should do.
[2022-08-31 22:22] LABS: NT Pro B Type Natriuretic Pept 24100 pg/mL (5-100); Troponin I 0.069 ng/mL (0.000-0.034)
[2022-08-31] MEDS: ZOLPIDEM TARTRATE (*CRX) 5 MG TABLET 10 MG PO (23:33)
[2022-09-01] VITALS (15 sets, daily range): BP systolic 91–141; BP diastolic 55–80; PULSE 84–113; RESP 16–24; TEMP 35.9–37.1; O2SAT 98–100; BMI 27.8
[2022-09-01 02:23] LABS: Troponin I 0.151 ng/mL (0.000-0.034)
[2022-09-01 06:19] LABS: Anion Gap 3 mmol/L (8-16); Blood Urea Nitrogen 18 mg/dL (9-20); Calcium 7.4 mg/dL (8.4-10.2); Carbon Dioxide 24 mmol/L (22-30); Chloride 103 mmol/L (98-107); Estimated CRCL calculation 26 ml/min; Estimated Glomerular Filt Rate 36; Glucose 115 mg/dL (65-110); Potassium 3.9 mmol/L (3.4-5.0); Sodium 130 mmol/L (137-145)
--- NOTE | 2022-09-01 07:51 | PM.IMPN ---
Progress Note: A&P Assessment and Plan (1) Paroxysmal supraventricular tachycardia: Code(s): I47.1 - Supraventricular tachycardia Status: Acute Assessment and Plan: The patient developed SVT not long after being placed in a room in the ED. He was given adenosine and converted to sinus briefly before going into atrial flutter with rapid ventricular response. (2) Atrial flutter with rapid ventricular response: Code(s): I48.92 - Unspecified atrial flutter Status: Acute Assessment and Plan: Currently on amiodarone drip with some improvement in his rates. Hopefully he will convert again with IV amiodarone and we will resume p.o. amiodarone probably at a higher dose per cardi (3) Acute on chronic diastolic CHF (congestive heart failure): Code(s): I50.33 - Acute on chronic diastolic (congestive) heart failure Status: Acute Assessment and Plan: He was previously on diuretics but those were discontinued with his last visit due to acute kidney injury and hypotension. Resume diuretics at lower dose and monitor her vital signs, blood pressure, and renal function closely. (4) Chronic kidney disease: Code(s): N18.9 - Chronic kidney disease, unspecified Status: Acute Assessment and Plan: Fairly stable. Monitor while diuresing. (5) Chronic anemia: Code(s): D64.9 - Anemia, unspecified Status: Acute Assessment and Plan: An ongoing issue for the patient, frequently requiring blood transfusions. Hemoglobin stable. Stool has been Hemoccult positive in the past and he may very well have occult GI blood loss. Continue to monitor closely. anticoagulation per sports journalist rec (6) Chronic anticoagulation: Code(s): Z79.01 - skilled nursing (current) use of anticoagulants Status: Acute Assessment and Plan: On Eliquis as above. (7) Hypotension: Code(s): I95.9 - Hypotension, unspecified Status: Acute Assessment and Plan: Blood pressures have been soft on amiodarone. He is on midodrine at home which will be continued. Initiate fall precautions and monitor orthostatic vital signs. f/u UA and bcx per cardiolgist BP now somewhat soft, so will will try p.o. Bumex, 2 mg b.i.d. to see how that is tolerated. Subjective Date/time seen: 09/01/22 07:51 Exam Const: Other: Frail pale, chronically ill-appearing elderly male sitting up in bed. Weight: 71 kilograms. BMI: 24.5. HENMT: Other: Normocephalic, atraumatic. Nares pain bilaterally. Tacky mucous membranes. Eyes: Other: Pupils are reactive. Extraocular motions intact. Sclerae anicteric. Neck: Other: Supple. No JVD. Resp: Other: Mildly tachypneic with conversational dyspnea, speaking in 4 to 5 word sentences. Lung sounds are diminished at the bases with fine crackles. Cardio: Other: Tachycardic (atrial flutter on telemetry). Systolic murmur heard at the left sternal border and apex. GI: Other: Abdomen is soft, nontender, nondistended with positive bowel sounds. Skin: Other: Warm, dry, pale. Neuro: Other: Alert and oriented x3. Cranial nerves 2-12 grossly intact. Generalized weakness without gross focal findings. Extrem: Other: No cyanosis or clubbing. Pitting edema of the feet up to the mid mast bilaterally. No palpable knots or cords. Negative Wanda sign bilaterally. Peripheral pulses intact. Psych: Other: Pleasant and cooperative. Appropriate mood and flat affect. Objective Data Vital Signs Vital Signs: Vital Signs - 24 hr 08/31/22 11:44 08/31/22 12:25 08/31/22 13:30 Temperature 97.8 F Pulse Rate 110 H 115 H 107 H Respiratory Rate 20 28 H 22 H Blood Pressure 118/74 110/70 Pulse Oximetry 97 100 97 Oxygen Delivery Room Air Room Air Oxygen Flow Rate 08/31/22 14:00 08/31/22 14:30 08/31/22 15:00 Temperature Pulse Rate 110 H 112 H 129 H Respiratory Rate 21 H 22 H 26 H Blood Pressure 106/62
[2022-09-01] MEDS: SODIUM CHLORIDE 0.9% IV 1,000 ML 125 ML IV CONT (08:04)
[2022-09-01] MEDS: AMIODARONE 360 MG/D5W 200 ML 360 MG/200 ML BAG 16.67 MG IV CONT ×2 (08:19→19:53)
--- NOTE | 2022-09-01 08:20 | PC.NURSE ---
heart healthy breakfast tray ordered
--- NOTE | 2022-09-01 09:20 | PM.IMPN ---
Subjective Date/time seen: 09/01/22 09:20 Saw on his outpatient EGD. The patient feels better, shortness of breath has resolved. Patient denies palpitation. Patient also denies chest pain, abdomen pain, nausea vomiting. Blood pressure is on lower side, patient still has AFib on monitor, rate is controlled above the 100 to 110 Objective Data Vital Signs Vital Signs: Vital Signs - 24 hr 08/31/22 11:44 08/31/22 12:25 08/31/22 13:30 Temperature 97.8 F Pulse Rate 110 H 115 H 107 H Respiratory Rate 20 28 H 22 H Blood Pressure 118/74 110/70 Pulse Oximetry 97 100 97 Oxygen Delivery Room Air Room Air Oxygen Flow Rate 08/31/22 14:00 08/31/22 14:30 08/31/22 15:00 Temperature Pulse Rate 110 H 112 H 129 H Respiratory Rate 21 H 22 H 26 H Blood Pressure 106/62 139/84 Pulse Oximetry 97 95 96 Oxygen Delivery Oxygen Flow Rate 08/31/22 16:25 08/31/22 15:30 08/31/22 20:01 Temperature Pulse Rate 140 H 134 H 110 H Respiratory Rate 29 H 22 H Blood Pressure 129/93 H 92/64 L Pulse Oximetry 95 97 Oxygen Delivery Oxygen Flow Rate 08/31/22 16:00 08/31/22 16:30 08/31/22 17:00 Temperature Pulse Rate 139 H 136 H 118 H Respiratory Rate 31 H 27 H 26 H Blood Pressure 92/78 L 119/77 116/74 Pulse Oximetry 96 99 97 Oxygen Delivery Oxygen Flow Rate 08/31/22 18:45 08/31/22 19:15 08/31/22 19:30 Temperature Pulse Rate 122 H 122 H 119 H Respiratory Rate 26 H 22 H 24 H Blood Pressure 92/57 L 97/59 L 92/60 L Pulse Oximetry 97 98 96 Oxygen Delivery Oxygen Flow Rate 08/31/22 22:14 08/31/22 20:30 08/31/22 21:00 Temperature Pulse Rate 109 H 107 H Respiratory Rate 22 H 20 Blood Pressure 92/62 L 90/50 L Pulse Oximetry 99 96 Oxygen Delivery Nasal Cannula Oxygen Flow Rate 2 08/31/22 22:00 08/31/22 22:30 08/31/22 23:06 Temperature Pulse Rate 106 H 111 H 104 H Respiratory Rate 21 H 24 H 22 H Blood Pressure 91/61 L 109/69 95/58 L Pulse Oximetry 98 100 99 Oxygen Delivery Oxygen Flow Rate 09/01/22 00:29 09/01/22 03:42 09/01/22 06:30 Temperature Pulse Rate 102 H 106 H 113 H Respiratory Rate 24 H 22 H 22 H Blood Pressure 93/63 L 107/72 103/69 Pulse Oximetry 100 100 99 Oxygen Delivery Oxygen Flow Rate Intake/Output Intake/Output: Intake & Output 08/29/22 08/30/22 08/31/22 09/01/22 23:59 23:59 23:59 23:59 Intake Total 1250 1200 Output Total 800 Balance 1250 400 Meds/Results Medications: Active Medications Generic Name Dose Route Start Last Admin Trade Name Freq PRN Reason Stop Dose Admin Acetaminophen 650 mg 08/31/22 22:35 Acetaminophen 325 Mg Tablet PO Q6H PRN Mild Pain (1-3) or Fever Bumetanide 2 mg 08/31/22 20:35 08/31/22 21:16 Bumetanide 1 Mg Tablet PO 2 mg BID NEHA Administration Amiodarone HCl/Dextrose 360 mg in 200 mls @ 16.667 mls/hr 08/31/22 17:06 09/01/22 08:19 Nexterone 360 Mg/D5w 200 Ml IV CONT 0.5 mg/min .Q12H NEHA 16.67 mls/hr Administration 0.5 MG/MIN Ceftriaxone Sodium/Dextrose 1 gm in 50 mls @ 100 mls/hr 09/01/22 18:00 Rocephin 1 Gm/D5w 50 Ml IVPB Q24H NEHA Sodium Chloride 1,000 mls @ 125 mls/hr 08/31/22 17:15 09/01/22 08:04 Normal Saline Iv IV CONT 125 mls/hr .Q8H NEHA Administration Acetaminophen 1,000 mg in 100 mls @ 400 mls/hr 08/31/22 17:12 Ofirmev 1,000 Mg Ivpb IVPB 09/01/22 17:11 Q6H PRN Mild Pain (1-3) or Fever Midodrine 5 mg 08/31/22 20:35 08/31/22 21:16 Midodrine Hcl 2.5 Mg Tablet PO 5 mg TID NEHA Administration Ondansetron HCl 4 mg 08/31/22 17:12 Ondansetron Inj 4 Mg/2 Ml Vial IV PUSH Q4H PRN Nausea Radiology Results: ITS Impressions Chest X-Ray 08/31/22 12:38 Impression: Small bilateral pleural effusions with mild bibasilar pulmonary edema/atelectasis. Status post aortic valve replacement. Labs Labs: Laboratory Results - last 24 hr 08/31/22 0
[2022-09-01] MEDS: MIDODRINE HCL 2.5 MG TABLET 5 MG PO ×3 (10:04→17:01)
[2022-09-01] MEDS: BUMETANIDE 1 MG TABLET 2 MG PO ×2 (10:05→17:01)
--- NOTE | 2022-09-01 13:13 | PM.IMHP ---
H&P: HPI History of Present Illness Date/Time: 09/01/22 13:13 [facility] Past Medical History Medical History Anemia Aortic valve stenosis Atrial fibrillation Atrial fibrillation with RVR Occurred during admission May 2022 due to sepsis Basal cell carcinoma Blood loss anemia BPH (benign prostatic hyperplasia) Chronic idiopathic thrombocytopenia Collagenous colitis Resulting in chronic loose stools Coronary artery disease Diastolic dysfunction Echocardiogram 04/2022: EF 70% grade 1 diastolic dysfunction, aortic valve prosthesis with good function, moderate pulmonary hypertension Diastolic heart failure Essential hypertension Gastroesophageal reflux Hyponatremia Hypothyroidism, unspecified Insomnia Kidney stones Latent tuberculosis Treated with INH in 1959 Mild persistent asthma without complication Mixed hyperlipidemia PSVT (paroxysmal supraventricular tachycardia) Thrombocytopenia Surgical History Surgical History H/O aortic valve replacement (2013) 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 And 2 children. He smoked up to 4 packs of cigarettes per day but for the most part smoked 1-2 packs of cigarettes per day. He smoked for approximately 30 years but quit in 1991. He reports that he drinks 4 oz of liquor every day which he describes as social drinking. 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 Code status: Full code Surrogate decision maker: Nae () and Cee (youngest daughter) Smoking packs per day: 1 Smoking cigarettes per day: 20.0 Years smoked: 40 Smoking pack-years: 40.00 Smoking status: Former smoker Tobacco type: cigarettes Second hand tobacco smoke exposure: No Smoking end date: 06/23/92 Additional smoking assessment comments: quit in 2000 Alcohol intake: current Alcohol use details: He reports that he drinks 4 oz of liquor every day. Substance use: never Substance use type: does not use Other substance usage details: 1 cocktail/day when he was well Lack of Transportation: YES Lack of Food: Never True Current Housing: I Have Housing Concerned About Future Housing: No Difficulty Paying Gas/Electric Bills: No Difficulty Paying for Meds: No Currently Unemployed: No Education: Master's Degree or Higher Difficulty w/ Childcare or Family Care: No Gender identity (if verbalized by the patient): Male Spiritual care concerns: No Agree to blood products: Yes Meds Home Medications and Allergies Home Medications Medication Instructions Recorded Confirmed Type albuterol sulfate 90 mcg/actuation 1 inh inhalation QID PRN Shortness 02/20/20 08/25/22 History aerosol inhaler (ProAir HFA) Of Breath solifenacin 10 mg tablet (Vesicare) 10 mg PO DAILY 07/13/21 08/25/22 History atorvastatin 10 mg tablet (Lipitor) 10 mg PO HS #90 tabs 10/21/21 08/25/22 Rx calcium carb-Ca gluc 500 mg 1 tablet PO DAILY 06/13/22 08/25/22 History calcium-magnesium ox-Mg gluc 250 mg tablet (Calcium Magnesium) clobetasol 0.05 % scalp solution 1 applic topical DAILY PRN Skin 06/13/22 08/25/22 History Irritation phenazopyridine 100 mg tablet 100 mg PO TID PRN Bladder Spasms 06/13/22 08/25/22 History (Pyridium) Saccharomyces boulardii 250 mg 250 mg PO TID 90 days #270 caps 07/04/22 08/25/22 Rx capsule (Florastor) apixaban 2.5 mg ta
--- NOTE | 2022-09-01 13:24 | PM.PNCARD ---
Progress Note: A&P Assessment and Plan (1) Atrial flutter with rapid ventricular response: Code(s): I48.92 - Unspecified atrial flutter Status: Acute Assessment and Plan: Recurrent (probable) atrial flutter RVR associated with shortness of breath. Had atrial flutter associated staph sepsis in May, status post cardioversion. Recurrent atrial flutter in July. Recurrent atrial flutter now possibly exacerbated by his exacerbation of CHF. Started on amiodarone drip in the emergency room . His rate is controlled on this. We will transition him to p.o. amiodarone starting tomorrow. He was on amiodarone at home, 200 mg daily. Will transition him to amiodarone p.o. 200 mg b.i.d. for now. Continue Eliquis as his anemia tolerates. (2) Acute on chronic diastolic CHF (congestive heart failure): Code(s): I50.33 - Acute on chronic diastolic (congestive) heart failure Status: Acute Assessment and Plan: Previously was taking Bumex 2 mg b.i.d., but it appears it he was discharged without it because of his hypotension and acute kidney injury in July. Chest x-ray was clear on discharge in July but now has bilateral pleural effusions. Continue diuresis with p.o. Bumex 2 mg b.i.d.. His blood pressure is tolerating this. He does have an elevated creatinine. Continue to monitor this closely. May need to reduce diuretic. (3) Hypotension: Code(s): I95.9 - Hypotension, unspecified Status: Acute Assessment and Plan: Blood pressure was surprisingly good on admission to the ER but now is running in the 90s on amiodarone. Has had chronic problems with hypotension. May have a UTI Check blood cultures Increase midodrine to 5 mg t.i.d.. (4) PSVT (paroxysmal supraventricular tachycardia): Code(s): I47.1 - Supraventricular tachycardia Status: Acute Assessment and Plan: History of PSVT in the past, Had recurrence in the emergency department. Converted with adenosine. (5) Frailty: Code(s): R54 - Age-related physical debility Status: Acute (6) CKD (chronic kidney disease): Code(s): N18.9 - Chronic kidney disease, unspecified Status: Acute Assessment and Plan: Continue to monitor closely with daily BMP. As above, may need to reduce diuretic dose. (7) Anemia: Code(s): D64.9 - Anemia, unspecified Status: Acute Assessment and Plan: Fairly stable; has required intermittent transfusions. (8) S/P aortic valve replacement with bioprosthetic valve: Code(s): Z95.3 - Presence of xenogenic heart valve Status: Acute Assessment and Plan: Normal valve function. Normal left ventricular function, EF 60-65%. Does have moderate mitral regurgitation. TEEs have not showed any vegetations. Subjective Date/time seen: 09/01/22 13:26 Cardiology follow up for atrial fluter, CHF He is feeling better today. He remains in rate controlled atrial flutter on amiodarone drip. He is diuresing well. Review of Systems Constitutional: Constitutional: Reports fatigue, Denies fever(s), Reports lethargy and Reports weakness Eyes: Eyes: Reports no additional eye complaints Cardiovascular: Cardiovascular: Denies chest pain, Denies pedal edema, Denies lightheadedness, Reports dyspnea and Reports dyspnea on exertion Respiratory: Respiratory: Denies chest congestion, Reports dyspnea and Reports dyspnea on exertion Gastrointestinal: Gastrointestinal: Denies abdominal pain and Denies hematochezia Musculoskeletal: Musculoskeletal: Reports no additional musculoskeletal complaints Integumentary/Breasts: Skin/Breast: Reports system reviewed and no additional complaints, except as docu Neurologic: Reports system reviewed and no additional complaints, except as documented, Denies behavioral changes, Denies confusion and Reports weakness Psychiatric: Psychiatric: Denies behavioral changes and Denies confusio
--- NOTE | 2022-09-01 15:58 | ADMGEN ---
This patient, Naga De Leon, was admitted to IMU Room 232-01. Patient/family oriented to hospital policies and general routines including ID bracelet, bed and alarms, visiting hours, pain management, procedures, bathroom and other care routines, personal items, smoking policy, room service/diet, and visiting hours. Information on how to activate the Rapid Response Team has been discussed. Patient/Family are encouraged to report perceived risks to care and to ask questions if they do not understand what they are told or what they should do.
--- NOTE | 2022-09-01 18:58 | ECG_ITS ---
Measurements Intervals [place] Rate: 85 P: 19 GA: 315 QRS: 2 QRSD: 111 T: 35 QT: 383 QTc: 458 Interpretive Statements SINUS RHYTHM WITH MARKED FIRST DEGREE AV BLOCK INTRAVENTRICULAR CONDUCTION DELAY DELAYED PRECORDIAL R/S TRANSITION ABNORMAL ECG COMPARED TO ECG 08/31/2022 15:39:50 SINUS RHYTHM NOW PRESENT FIRST DEGREE AV BLOCK NOW PRESENT INTRAVENTRICULAR CONDUCTION DELAY NOW PRESENT Electronically Signed On 09-01-2022 21:05:58 WATER METER READER by El Toth D.O.
[2022-09-01] MEDS: ZOLPIDEM TARTRATE (*CRX) 5 MG TABLET 10 MG PO (21:20)
[2022-09-02] VITALS (14 sets, daily range): BP systolic 96–116; BP diastolic 54–70; PULSE 78–101; RESP 16–28; TEMP 35.9–36.6; O2SAT 96–100
[2022-09-02] MEDS: AMIODARONE HCL 200 MG TABLET PO ×2 (06:48→21:17)
--- NOTE | 2022-09-02 09:10 | PM.IMPN ---
Progress Note: A&P Assessment and Plan (1) Paroxysmal supraventricular tachycardia: Code(s): I47.1 - Supraventricular tachycardia Status: Acute (2) Atrial flutter with rapid ventricular response: Code(s): I48.92 - Unspecified atrial flutter Status: Acute (3) Acute on chronic diastolic CHF (congestive heart failure): Code(s): I50.33 - Acute on chronic diastolic (congestive) heart failure Status: Acute (4) Chronic kidney disease: Code(s): N18.9 - Chronic kidney disease, unspecified Status: Acute (5) Chronic anemia: Code(s): D64.9 - Anemia, unspecified Status: Acute (6) Chronic anticoagulation: Code(s): Z79.01 - FDC (current) use of anticoagulants Status: Acute (7) Hypotension: Code(s): I95.9 - Hypotension, unspecified Status: Acute Plan Assessment and Plan (1) Paroxysmal supraventricular tachycardia: ?Code(s): I47.1 - Supraventricular tachycardia ?Status:?Acute ?Assessment and Plan: The patient developed SVT not long after being placed in a room in the ED.? He was given adenosine and converted to sinus briefly before going into atrial flutter with rapid ventricular response. (2) Atrial flutter with rapid ventricular response: ?Code(s): I48.92 - Unspecified atrial flutter ?Status:?Acute ?Assessment and Plan: Currently on amiodarone drip with some improvement in his rates. Hopefully he will convert again with IV amiodarone and we will resume p.o. amiodarone probably at a higher dose per cardi (3) Acute on chronic diastolic CHF (congestive heart failure): ?Code(s): I50.33 - Acute on chronic diastolic (congestive) heart failure ?Status:?Acute ?Assessment and Plan: He was previously on diuretics but those were discontinued with his last visit due to acute kidney injury and hypotension. Resume diuretics at lower dose and monitor her vital signs, blood pressure, and renal function closely. (4) Chronic kidney disease: ?Code(s): N18.9 - Chronic kidney disease, unspecified ?Status:?Acute ?Assessment and Plan: Fairly stable.? Monitor while diuresing. (5) Chronic anemia: ?Code(s): D64.9 - Anemia, unspecified ?Status:?Acute ?Assessment and Plan: An ongoing issue for the patient, frequently requiring blood transfusions. ?Hemoglobin? stable. Stool has been Hemoccult positive in the past and he may very well have occult GI blood loss. ?Continue to monitor closely. anticoagulation per road mechanic rec (6) Chronic anticoagulation: ?Code(s): Z79.01 - terminal gauger (current) use of anticoagulants ?Status:?Acute ?Assessment and Plan: On Eliquis as above. (7) Hypotension: ?Code(s): I95.9 - Hypotension, unspecified ?Status:?Acute ?Assessment and Plan: Blood pressures have been soft on amiodarone. He is on midodrine at home which will be continued. Initiate fall precautions and monitor orthostatic vital signs. f/u UA and bcx per cardiolgist BP now somewhat soft, so will will try p.o. Bumex, 2 mg b.i.d. to see how that is tolerated. Subjective Date/time seen: 09/02/22 09:10 Objective Data Vital Signs Vital Signs: Vital Signs - 24 hr 09/01/22 10:08 09/01/22 11:15 09/01/22 11:16 Temperature 98.7 F Pulse Rate 106 H 95 Respiratory Rate 18 18 Blood Pressure 101/72 91/58 L Pulse Oximetry 99 98 98 Oxygen Delivery Nasal Cannula Oxygen Flow Rate 3 09/01/22 11:18 09/01/22 12:55 09/01/22 14:05 Temperature Pulse Rate 91 90 Respiratory Rate 19 20 Blood Pressure 96/65 L 141/80 H Pulse Oximetry 98 100 99 Oxygen Delivery Nasal Cannula Oxygen Flow Rate 3 09/01/22 15:39 09/01/22 16:00 09/01/22 18:00 Temperature 96.6 F L Pulse Rate 90 94 97 Respiratory Rate 18 24 H Blood Pressure 95/57 L 106/62 Pulse Oximetry 99 100 Oxygen Delivery Oxygen Flow Rate 09/01/22 16:00 09/01/22 2
[2022-09-02] MEDS: MIDODRINE HCL 2.5 MG TABLET 5 MG PO ×3 (09:56→17:01)
[2022-09-02] MEDS: ENOXAPARIN 40 MG/0.4 ML SYRINGE SUB-Q (09:56)
[2022-09-02] MEDS: BUMETANIDE 1 MG TABLET 2 MG PO ×2 (09:56→17:01)
--- NOTE | 2022-09-02 12:36 | PC.NURSE ---
This patient, Naga De Leon, was transferred to [facility] on 09/02/22 at 1236. Personal belongings sent with patient. Report given to Shannon MOSELEY. Appropriate documentation sent with patient.
--- NOTE | 2022-09-02 12:57 | PM.IMPN ---
Progress Note: A&P Assessment and Plan (1) Paroxysmal supraventricular tachycardia: Code(s): I47.1 - Supraventricular tachycardia Status: Acute (2) Atrial flutter with rapid ventricular response: Code(s): I48.92 - Unspecified atrial flutter Status: Acute (3) Acute on chronic diastolic CHF (congestive heart failure): Code(s): I50.33 - Acute on chronic diastolic (congestive) heart failure Status: Acute (4) Chronic kidney disease: Code(s): N18.9 - Chronic kidney disease, unspecified Status: Acute (5) Chronic anemia: Code(s): D64.9 - Anemia, unspecified Status: Acute (6) Chronic anticoagulation: Code(s): Z79.01 - snf (current) use of anticoagulants Status: Acute (7) Hypotension: Code(s): I95.9 - Hypotension, unspecified Status: Acute Plan Assessment and Plan (1) Paroxysmal supraventricular tachycardia: ?Code(s): I47.1 - Supraventricular tachycardia ?Status:?Acute ?Assessment and Plan: The patient developed SVT not long after being placed in a room in the ED.? He was given adenosine and converted to sinus briefly before going into atrial flutter with rapid ventricular response. now patient is on sinus rhythm (2) Atrial flutter with rapid ventricular response: ?Code(s): I48.92 - Unspecified atrial flutter ?Status:?Acute ?Assessment and Plan: was on amiodarone drip Converted to sinus rhythm now, Start amiodarone 200 mg b.i.d. p.o. per sales ledger administrator recommendation Continue Eliquis 2.5 mg b.i.d. p.o. (3) Acute on chronic diastolic CHF (congestive heart failure): ?Code(s): I50.33 - Acute on chronic diastolic (congestive) heart failure ?Status:?Acute ?Assessment and Plan: Continue diuresis with p.o. Bumex 2 mg b.i.d Still some crackles at bilateral bases Dyspnea improving (4) Chronic kidney disease: ?Code(s): N18.9 - Chronic kidney disease, unspecified ?Status:?Acute ?Assessment and Plan: Fairly stable.? Monitor while diuresing. (5) Chronic anemia: ?Code(s): D64.9 - Anemia, unspecified ?Status:?Acute ?Assessment and Plan: An ongoing issue for the patient, frequently requiring blood transfusions. ?Hemoglobin? stable. Stool has been Hemoccult positive in the past and he may very well have occult GI blood loss. ?Continue to monitor closely. anticoagulation per sales ledger administrator rec (6) Chronic anticoagulation: ?Code(s): Z79.01 - terminologist (current) use of anticoagulants ?Status:?Acute ?Assessment and Plan: On Eliquis as above. (7) Hypotension: ?Code(s): I95.9 - Hypotension, unspecified ?Status:?Acute ?Assessment and Plan: Blood pressures have been soft on amiodarone. He is on midodrine at home which will be continued. Initiate fall precautions and monitor orthostatic vital signs. f/u UA and bcx per cardiolgist BP now somewhat soft, so will will try p.o. Bumex, 2 mg b.i.d. to see how that is tolerated. Subjective Date/time seen: 09/02/22 12:57 Saw exam patient. Patient feels dyspnea has resolved, sinus rhythm on cardiac monitor. Patient denies chest pain, abdominal pain, nausea vomiting diarrhea. Exam Narrative: GENERAL: Pleasant, in no acute distress. Well-nourished. - EYES: EOMI. Anicteric. - HENT: Moist mucous membranes. - LUNGS: Crackles bilateral base, improving,, no wheezing, rhonchi, - CARDIOVASCULAR: Regular rate and rhythm. No murmur. No JVD. - ABDOMEN: Soft, non-tender and non-distended. No palpable masses. - EXTREMITIES: Bilateral lower extremities 2+ edema. Peripheral pulses 2+. Non-tender. - NEUROLOGIC: No focal neurological deficits. CN II-XII grossly intact. - PSYCHIATRIC: Awake, Alert and oriented x 3. Appropriate mood and affect. - SKIN: No rashes or lesions. Warm. - LYMPH: No cervical lymphadenopathy. Objective Data Vital Signs Vital Signs: Vital Signs - 24 hr 09/01/22 1
[2022-09-02 13:33] LABS: Hematocrit 23.7 % (42.0-52.0); Hemoglobin 7.7 g/dL (14.0-18.0); Immature Platelet Fraction Pct 5.9 % (0.9-11.2); Mean Corpuscular HGB Conc 32.5 g/dl (32-36); Mean Corpuscular Hemoglobin 32.4 pg (26-34); Mean Corpuscular Volume 99.6 fl (80-100); Mean Platelet Volume 10.6 fl (7.4-10.4); Platelet Count Result 88 k/mm3 (150-375); Red Blood Count 2.38 M/mm3 (4.6-6.20); Red Cell Distribution Width 19.9 % (11.5-14.5); White Blood Count 6.6 K/mm3 (4.5-10.0)
[2022-09-02 13:43] LABS: Anion Gap 6 mmol/L (8-16); Blood Urea Nitrogen 20 mg/dL (9-20); Calcium 7.1 mg/dL (8.4-10.2); Carbon Dioxide 23 mmol/L (22-30); Chloride 99 mmol/L (98-107); Estimated CRCL calculation 30 ml/min; Estimated Glomerular Filt Rate 41; Glucose 141 mg/dL (65-110); Sodium 128 mmol/L (137-145)
[2022-09-02] MEDS: PANTOPRAZOLE 40 MG TABLET PO (15:23)
[2022-09-02] MEDS: ZOLPIDEM TARTRATE (*CRX) 5 MG TABLET 10 MG PO (20:56)
[2022-09-02] MEDS: METOPROLOL TARTRATE 50 MG TAB PO (20:56)
[2022-09-02] MEDS: ATORVASTATIN 10 MG TABLET PO (20:57)
[2022-09-02] MEDS: TAMSULOSIN HCL 0.4 MG CAPSULE PO (20:57)
[2022-09-02] MEDS: APIXABAN 2.5 MG TABLET PO (20:57)
[2022-09-02] MEDS: FAMOTIDINE 20 MG TABLET PO (20:57)
[2022-09-02] MEDS: IPRATROPIUM BR 0.02% INH SOLN 0.5 MG/2.5 ML VIAL INHALATION (21:20)
[2022-09-02] MEDS: BUDESONIDE RESPULE NEB 0.5 MG/2 ML AMP INHALATION (21:21)
[2022-09-03] VITALS (13 sets, daily range): BP systolic 94–116; BP diastolic 62–64; PULSE 69–82; RESP 14–20; TEMP 36.6–36.9; O2SAT 94–96
[2022-09-03] MEDS: LEVOTHYROXINE SODIUM 50 MCG TABLET PO (05:11)
[2022-09-03 06:53] LABS: Anion Gap 3 mmol/L (8-16); Blood Urea Nitrogen 18 mg/dL (9-20); Calcium 6.9 mg/dL (8.4-10.2); Carbon Dioxide 28 mmol/L (22-30); Chloride 99 mmol/L (98-107); Estimated CRCL calculation 26 ml/min; Estimated Glomerular Filt Rate 36; Glucose 93 mg/dL (65-110); Magnesium 1.2 mg/dL (1.6-2.3); Sodium 130 mmol/L (137-145)
[2022-09-03] MEDS: MIDODRINE HCL 2.5 MG TABLET 5 MG PO ×3 (09:12→17:23)
[2022-09-03] MEDS: BUMETANIDE 1 MG TABLET 2 MG PO ×2 (09:12→17:23)
[2022-09-03] MEDS: FAMOTIDINE 20 MG TABLET PO ×2 (09:12→20:07)
[2022-09-03] MEDS: ENOXAPARIN 40 MG/0.4 ML SYRINGE SUB-Q (09:12)
[2022-09-03] MEDS: PANTOPRAZOLE 40 MG TABLET PO (09:12)
[2022-09-03] MEDS: AMIODARONE HCL 200 MG TABLET PO ×2 (09:12→20:07)
[2022-09-03] MEDS: APIXABAN 2.5 MG TABLET PO ×2 (09:13→20:06)
--- NOTE | 2022-09-03 10:21 | PCPTNOTE ---
Patient refused treatment this session due to saying he needs to rest today and he knows therapy can see him sunday to get OOB
--- NOTE | 2022-09-03 13:39 | PM.PNCARD ---
Progress Note: A&P Assessment and Plan (1) Atrial flutter with rapid ventricular response: Code(s): I48.92 - Unspecified atrial flutter Status: Acute Assessment and Plan: Recurrent (probable) atrial flutter RVR associated with shortness of breath. Had atrial flutter associated staph sepsis in May, status post cardioversion. Recurrent atrial flutter in July. Recurrent atrial flutter now possibly exacerbated by his exacerbation of CHF. Started on amiodarone drip in the emergency room . Currently in sinus rhythm with first-degree AV block. Continue amiodarone p.o. 200 mg b.i.d. . Continue apixaban low dose based on age and renal function as his anemia tolerates. 12 lead EKG in the morning (2) Acute on chronic diastolic CHF (congestive heart failure): Code(s): I50.33 - Acute on chronic diastolic (congestive) heart failure Status: Acute Assessment and Plan: Continue diuresis with p.o. Bumex 2 mg b.i.d. (3) Hypotension: Code(s): I95.9 - Hypotension, unspecified Status: Acute Assessment and Plan: blood pressure low normal. Continue to monitor. (4) PSVT (paroxysmal supraventricular tachycardia): Code(s): I47.1 - Supraventricular tachycardia Status: Acute Assessment and Plan: History of PSVT in the past, Had recurrence in the emergency department. Converted with adenosine. (5) Frailty: Code(s): R54 - Age-related physical debility Status: Acute (6) CKD (chronic kidney disease): Code(s): N18.9 - Chronic kidney disease, unspecified Status: Acute Assessment and Plan: Continue to monitor closely with daily BMP. As above, may need to reduce diuretic dose. (7) Anemia: Code(s): D64.9 - Anemia, unspecified Status: Acute Assessment and Plan: Fairly stable; has required intermittent transfusions. (8) S/P aortic valve replacement with bioprosthetic valve: Code(s): Z95.3 - Presence of xenogenic heart valve Status: Acute Assessment and Plan: Normal valve function. Normal left ventricular function, EF 60-65%. Does have moderate mitral regurgitation. TEEs have not showed any vegetations. Subjective Date/time seen: 09/03/22 13:39 Interval history: date of service: 09/03/2022 Interval history: Patient reports improvement in his shortness of breath and lower extremity swelling. Denies chest pain. Denies palpitation, dizziness. On telemetry, he is in sinus rhythm with first-degree AV block. Exam Narrative: PHYSICAL EXAMINATION: GENERAL: Elderly male, Alert, oriented, no acute distress MENTAL STATUS: affect appropriate to mood EYES: Extraocular movements intact, no pallor EARS: External ears appear normal, hearing grossly normal NOSE: Normal and patent, no discharge MOUTH: Mucous membranes moist, tongue normal NECK: Supple, no JVD CHEST: clear to auscultation HEART: Normal rate, regular rhythm at present ABDOMEN: Soft, nontender NEUROLOGICAL: Alert, oriented, normal speech, no gross motor deficits MUSCULOSKELETAL: No major deformity, no amputation EXTREMITIES: trace pedal edema, no clubbing, no cyanosis SKIN: no rash on the exposed area, no cyanosis PSYCHIATRIC: Normal mood, appropriate affect Objective Data Vital Signs Vital Signs: Vital Signs - 24 hr 09/02/22 20:54 09/02/22 20:55 09/02/22 20:56 Temperature 36.3 C L Pulse Rate 101 H 101 H Respiratory Rate 17 Blood Pressure 116/63 Pulse Oximetry 99 100 Oxygen Delivery Room Air 09/02/22 21:17 09/02/22 21:23 09/02/22 22:27 Temperature Pulse Rate 101 H 78 Respiratory Rate 16 Blood Pressure Pulse Oximetry Oxygen Delivery Room Air 09/02/22 22:00 09/03/22 00:00 09/03/22 04:00 Temperature 36.4 C Pulse Rate 94 69 76 Respiratory Rate 18 Blood Pressure 109/60 Pulse Oximetry 100 Oxygen Delivery 09/03/22 06:00 09/03/22 08:
[2022-09-03] MEDS: guaiFENesin 12 HR 600 MG TABCR PO (13:51)
--- NOTE | 2022-09-03 18:13 | PM.IMPN ---
Progress Note: A&P Assessment and Plan (1) Paroxysmal supraventricular tachycardia: Code(s): I47.1 - Supraventricular tachycardia Status: Acute (2) Atrial flutter with rapid ventricular response: Code(s): I48.92 - Unspecified atrial flutter Status: Acute (3) Acute on chronic diastolic CHF (congestive heart failure): Code(s): I50.33 - Acute on chronic diastolic (congestive) heart failure Status: Acute (4) Chronic kidney disease: Code(s): N18.9 - Chronic kidney disease, unspecified Status: Acute (5) Chronic anemia: Code(s): D64.9 - Anemia, unspecified Status: Acute (6) Chronic anticoagulation: Code(s): Z79.01 - half-way (current) use of anticoagulants Status: Acute (7) Hypotension: Code(s): I95.9 - Hypotension, unspecified Status: Acute Plan (1) Paroxysmal supraventricular tachycardia: ?Code(s): I47.1 - Supraventricular tachycardia ?Status:?Acute ?Assessment and Plan: The patient developed SVT not long after being placed in a room in the ED.? He was given adenosine and converted to sinus briefly before going into atrial flutter with rapid ventricular response. now patient is on sinus rhythm (2) Atrial flutter with rapid ventricular response: ?Code(s): I48.92 - Unspecified atrial flutter ?Status:?Acute ?Assessment and Plan: was on amiodarone drip Converted to sinus rhythm now, Start amiodarone 200 mg b.i.d. p.o. per filler wiper recommendation Continue Eliquis 2.5 mg b.i.d. p.o. (3) Acute on chronic diastolic CHF (congestive heart failure): ?Code(s): I50.33 - Acute on chronic diastolic (congestive) heart failure ?Status:?Acute ?Assessment and Plan: Continue diuresis with p.o. Bumex 2 mg b.i.d Still some crackles at bilateral bases Dyspnea improving (4) Chronic kidney disease: ?Code(s): N18.9 - Chronic kidney disease, unspecified ?Status:?Acute ?Assessment and Plan: Fairly stable.? Monitor while diuresing. (5) Chronic anemia: ?Code(s): D64.9 - Anemia, unspecified ?Status:?Acute ?Assessment and Plan: An ongoing issue for the patient, frequently requiring blood transfusions. ?Hemoglobin? stable. Stool has been Hemoccult positive in the past and he may very well have occult GI blood loss. ?Continue to monitor closely. anticoagulation per filler wiper rec (6) Chronic anticoagulation: ?Code(s): Z79.01 - half-way (current) use of anticoagulants ?Status:?Acute ?Assessment and Plan: On Eliquis as above. (7) Hypotension: ?Code(s): I95.9 - Hypotension, unspecified ?Status:?Acute ?Assessment and Plan: Blood pressures have been soft on amiodarone. He is on midodrine at home which will be continued. Initiate fall precautions and monitor orthostatic vital signs. f/u UA and bcx per cardiolgist BP now somewhat soft, so will will try p.o. Bumex, 2 mg b.i.d. to see how that is tolerated. Time Spent With Patient Time with patient: 25 - 35 minutes Subjective Date/time seen: 09/03/22 18:13 Interval history: date of service: 09/03/2022 has no shortness of breath and lower extremity swelling. Denies chest pain. Denies palpitation, dizziness. he is in sinus rhythm. Objective Data Vital Signs Vital Signs: Vital Signs - 24 hr 09/02/22 20:54 09/02/22 20:55 09/02/22 20:56 Temperature 97.4 F L Pulse Rate 101 H 101 H Respiratory Rate 17 Blood Pressure 116/63 Pulse Oximetry 99 100 Oxygen Delivery Room Air 09/02/22 21:17 09/02/22 21:23 09/02/22 22:27 Temperature Pulse Rate 101 H 78 Respiratory Rate 16 Blood Pressure Pulse Oximetry Oxygen Delivery Room Air 09/02/22 22:00 09/03/22 00:00 09/03/22 04:00 Temperature 97.6 F Pulse Rate 94 69 76 Respiratory Rate 18 Blood Pressure 109/60 Pulse Oximetry 100 Oxygen Delivery 09/03/22 06:00 09/03/22 08:38 09/03/22
[2022-09-03] MEDS: POTASSIUM CHLORIDE 20 MEQ TABLET 40 MEQ PO (19:59)
[2022-09-03] MEDS: POTASSIUM CHLORIDE INJ 40 MEQ in SODIUM CHLORIDE 0.9% IV 500 ML 130 MEQ IVPB (19:59)
[2022-09-03] MEDS: ATORVASTATIN 10 MG TABLET PO (20:06)
[2022-09-03] MEDS: METOPROLOL TARTRATE 50 MG TAB PO (20:07)
[2022-09-03] MEDS: TAMSULOSIN HCL 0.4 MG CAPSULE PO (20:07)
[2022-09-03] MEDS: IPRATROPIUM BR 0.02% INH SOLN 0.5 MG/2.5 ML VIAL INHALATION (20:32)
[2022-09-03] MEDS: BUDESONIDE RESPULE NEB 0.5 MG/2 ML AMP INHALATION (20:33)
[2022-09-03] MEDS: ZOLPIDEM TARTRATE (*CRX) 5 MG TABLET 10 MG PO (21:58)
[2022-09-04] VITALS (15 sets, daily range): BP systolic 103–128; BP diastolic 60–67; PULSE 66–88; RESP 14–24; TEMP 36.4–37.1; O2SAT 94–98; BMI 26.4
--- NOTE | 2022-09-04 | ECHO_ITS ---
Patient Info Name: Naga De Leon Age: 82 years : 1940 Gender: Male Ht: 67 in Wt: 168 lbs BSA: 1.91 m2 HR: 74 bpm BP: 106 / 67 mmHg Heart Rhythm: Sinus Rhythm Technical Quality: Fair Exam Date: 09/04/2022 2:36 PM Exam Location: [facility] Pulmonary Patient Status: Inpatient Admit Date: 08/31/2022 Staff Ordering Physician: Dyan Valerio MD Night Club Manager: Adilene Bowen RDCS Attending Provider: Rhiannon Lomas MD Exam Type: CA echo doppler color flow Study Info Indications - MRSA Bacteremia Complete two-dimensional, color flow and Doppler transthoracic echocardiogram is performed. Summary 1. Complete two-dimensional, color flow and Doppler transthoracic echocardiogram is performed. 2. Left ventricular chamber dimension is normal. 3. Left ventricular systolic function is normal, estimated at 60-65%. 4. There is no increased left ventricular wall thickness. 5. The left ventricular diastolic function is abnormal. 6. Left atrial chamber dimension is moderately enlarged. 7. There is mild aortic valve stenosis with a peak velocity of 164 cm/s, mean gradient of 5 mmHg, and aortic valve area of 1.9 cm2. 8. There is moderate aortic valve calcification. 9. There is moderate mitral valve stenosis. 10. There is mild mitral valve regurgitation. 11. Possible small mitral valve vegetation visualized. 12. The mitral valve annulus is severely calcified. 13. There is mild tricuspid valve regurgitation. 14. Mild pulmonary hypertension, estimated pulmonary arterial systolic pressure is 43 mmHg. Left Ventricle Left ventricular chamber dimension is normal. Left ventricular systolic function is normal, estimated at 60-65%. There is no increased left ventricular wall thickness. The left ventricular diastolic function is abnormal. Right Ventricle Right ventricular chamber dimension is normal. Right ventricular systolic function is normal. Left Atria Left atrial chamber dimension is moderately enlarged. Right Atria Right atrial chamber dimension is normal. Atrial Septum Intact interatrial septum visualized by color flow imaging. Aortic Valve The aortic valve is trileaflet. There is mild aortic valve stenosis with a peak velocity of 164 cm/s, mean gradient of 5 mmHg, and aortic valve area of 1.9 cm2. There is trace aortic valve regurgitation. There is moderate aortic valve calcification. Pulmonic Valve The pulmonic valve is normal. There is no pulmonic valve stenosis. There is trace pulmonic regurgitation. Mitral Valve There is moderate mitral valve stenosis. There is mild mitral valve regurgitation. Possible small mitral valve vegetation visualized. The mitral valve annulus is severely calcified. Tricuspid Valve The tricuspid valve leaflets are normal. There is no significant tricuspid valve stenosis. There is mild tricuspid valve regurgitation. Mild pulmonary hypertension, estimated pulmonary arterial systolic pressure is 43 mmHg. Pericardium/Pleural The pericardium appears normal. There is no pericardial effusion. Inferior Vena Cava Dilated inferior vena cava with >50% collapse upon inspiration consistent with elevated right atrial pressure, 10 mmHg. Aorta The aortic root size at the sinus of Valsalva is normal. There is moderate aortic atherosclerosis. Left Ventricular Outflow Tract Name Value Normal ------
[2022-09-04] MEDS: LEVOTHYROXINE SODIUM 50 MCG TABLET PO (06:22)
[2022-09-04 06:40] LABS: Hematocrit 23.3 % (42.0-52.0); Hemoglobin 7.6 g/dL (14.0-18.0); Immature Platelet Fraction Pct 5.7 % (0.9-11.2); Mean Corpuscular HGB Conc 32.6 g/dl (32-36); Mean Corpuscular Hemoglobin 31.9 pg (26-34); Mean Corpuscular Volume 97.9 fl (80-100); Mean Platelet Volume 10.6 fl (7.4-10.4); Platelet Count Result 87 k/mm3 (150-375); Red Blood Count 2.38 M/mm3 (4.6-6.20); Red Cell Distribution Width 19.7 % (11.5-14.5); White Blood Count 5.2 K/mm3 (4.5-10.0)
[2022-09-04 06:45] LABS: Anion Gap 2 mmol/L (8-16); Blood Urea Nitrogen 16 mg/dL (9-20); Calcium 6.8 mg/dL (8.4-10.2); Carbon Dioxide 27 mmol/L (22-30); Chloride 99 mmol/L (98-107); Estimated CRCL calculation 31 ml/min; Estimated Glomerular Filt Rate 45; Glucose 102 mg/dL (65-110); Potassium 3.2 mmol/L (3.4-5.0); Sodium 128 mmol/L (137-145)
--- NOTE | 2022-09-04 08:47 | ECG_ITS ---
Measurements Intervals [place] Rate: 81 P: -18 MT: 312 QRS: -5 QRSD: 113 T: 35 QT: 398 QTc: 462 Interpretive Statements SINUS RHYTHM WITH MARKED FIRST DEGREE AV BLOCK POSSIBLE LEFT ATRIAL ENLARGEMENT INTRAVENTRICULAR CONDUCTION DELAY DELAYED PRECORDIAL R/S TRANSITION BORDERLINE T WAVE ABNORMALITY- INFERIOR LEADS BASELINE WANDER- I, II, III, AVR, AVL, AVF ABNORMAL ECG COMPARED TO ECG 09/01/2022 20:57:59 NO SIGNIFICANT CHANGES Electronically Signed On 09-04-2022 10:30:47 WEATHER ANCHOR by El Toth D.O.
[2022-09-04] MEDS: IPRATROPIUM BR 0.02% INH SOLN 0.5 MG/2.5 ML VIAL INHALATION ×2 (08:52→20:34)
[2022-09-04] MEDS: BUDESONIDE RESPULE NEB 0.5 MG/2 ML AMP INHALATION ×2 (08:53→20:34)
--- NOTE | 2022-09-04 09:09 | PM.PNCARD ---
Progress Note: A&P Assessment and Plan (1) Atrial flutter with rapid ventricular response: Code(s): I48.92 - Unspecified atrial flutter Status: Acute Assessment and Plan: Recurrent (probable) atrial flutter RVR associated with shortness of breath. Had atrial flutter associated staph sepsis in May, status post cardioversion. Recurrent atrial flutter in July. Recurrent atrial flutter now possibly exacerbated by his exacerbation of CHF. Started on amiodarone drip in the emergency room . Currently in sinus rhythm with first-degree AV block. Continue amiodarone p.o. 200 mg b.i.d. . Continue apixaban low dose based on age and renal function as his anemia tolerates. (2) Acute on chronic diastolic CHF (congestive heart failure): Code(s): I50.33 - Acute on chronic diastolic (congestive) heart failure Status: Acute Assessment and Plan: Continue diuresis with p.o. Bumex 2 mg b.i.d. (3) Hypotension: Code(s): I95.9 - Hypotension, unspecified Status: Acute Assessment and Plan: blood pressure low normal. Continue to monitor. (4) PSVT (paroxysmal supraventricular tachycardia): Code(s): I47.1 - Supraventricular tachycardia Status: Acute Assessment and Plan: History of PSVT in the past, Had recurrence in the emergency department. Converted with adenosine. (5) Frailty: Code(s): R54 - Age-related physical debility Status: Acute (6) CKD (chronic kidney disease): Code(s): N18.9 - Chronic kidney disease, unspecified Status: Acute Assessment and Plan: Continue to monitor closely with daily BMP. As above, may need to reduce diuretic dose. (7) Anemia: Code(s): D64.9 - Anemia, unspecified Status: Acute Assessment and Plan: Fairly stable; has required intermittent transfusions. (8) S/P aortic valve replacement with bioprosthetic valve: Code(s): Z95.3 - Presence of xenogenic heart valve Status: Acute Assessment and Plan: Normal valve function. Normal left ventricular function, EF 60-65%. Does have moderate mitral regurgitation. TEEs have not showed any vegetations. (9) Electrolyte imbalance: Code(s): E87.8 - Other disorders of electrolyte and fluid balance, not elsewhere classified Status: Acute Assessment and Plan: potassium and magnesium are low. Will replace potassium 40 mg p.o. x1. Magnesium is also markedly diminished and will give 4 g IV x1 Subjective Date/time seen: 09/04/22 09:09 Interval history: 82-year-old with atrial flutter, CHF. Admitted for worsening shortness of breath date of service: 09/04/2022 he feels better. He is less short of breath. Thinks his leg swelling has improved also. He has no chest pain. Review of Systems Constitutional: Constitutional: Reports fatigue, Denies fever(s), Reports lethargy and Reports weakness Eyes: Eyes: Reports no additional eye complaints Cardiovascular: Cardiovascular: Denies chest pain, Denies pedal edema, Denies lightheadedness, Reports dyspnea and Reports dyspnea on exertion Respiratory: Respiratory: Denies chest congestion, Reports dyspnea and Reports dyspnea on exertion Gastrointestinal: Gastrointestinal: Denies abdominal pain and Denies hematochezia Musculoskeletal: Musculoskeletal: Reports no additional musculoskeletal complaints Integumentary/Breasts: Skin/Breast: Reports system reviewed and no additional complaints, except as docu Neurologic: Reports system reviewed and no additional complaints, except as documented, Denies behavioral changes, Denies confusion and Reports weakness Psychiatric: Psychiatric: Denies behavioral changes and Denies confusion Endocrine: Endocrine: Reports fatigue Exam Narrative: PHYSICAL EXAMINATION: GENERAL: Elderly male, Alert, oriented, no acute distress MENTAL STATUS: affect appropriate to mood EYES: Extraocular movement
--- NOTE | 2022-09-04 09:40 | PCOTNOTE ---
While working with a patient in a near by room, a large noise was heard. Upon entering room 315 , chair alarm sounding, this patient Naga Hidalgo was found laying on the floor over folded walker along wall/end of bed. Pt was alert and stated he got tangled up in the bed sheets. Bed sheet was wrapped around patient legs with BM covering floor. Pt reported getting up to go to the bathroom. Patient denied pain of any kind and was eager to attempt to get to bathroom. Staff x2 assisted patient to his feet and he ambulated to bathroom for toileting. Pt left with ENGINEERING LIBRARIAN at toilet with charge nurse and patient's RN at bedside. Pt not seen for OT this am for this reason.
[2022-09-04] MEDS: POTASSIUM CHLORIDE 20 MEQ TABLET 40 MEQ PO (11:13)
[2022-09-04] MEDS: FAMOTIDINE 20 MG TABLET PO ×2 (11:14→19:56)
[2022-09-04] MEDS: MIDODRINE HCL 2.5 MG TABLET 5 MG PO ×2 (11:14→18:08)
[2022-09-04] MEDS: AMIODARONE HCL 200 MG TABLET PO ×2 (11:14→19:57)
[2022-09-04] MEDS: BUMETANIDE 1 MG TABLET 2 MG PO ×2 (11:15→18:08)
[2022-09-04] MEDS: POTASSIUM CHLORIDE 20 MEQ TABLET.ER 40 MEQ PO ×2 (11:15→18:09)
[2022-09-04] MEDS: APIXABAN 2.5 MG TABLET PO ×2 (11:15→19:56)
[2022-09-04] MEDS: MAGNESIUM SULF 4 GM/WATER100ML 4 GM/100 ML BAG IVPB (11:16)
[2022-09-04] MEDS: PANTOPRAZOLE 40 MG TABLET PO (11:16)
--- NOTE | 2022-09-04 12:15 | PM.IMPN ---
Progress Note: A&P Assessment and Plan (1) Electrolyte imbalance: Code(s): E87.8 - Other disorders of electrolyte and fluid balance, not elsewhere classified Status: Acute (2) Chronic anemia: Code(s): D64.9 - Anemia, unspecified Status: Acute (3) Chronic kidney disease: Code(s): N18.9 - Chronic kidney disease, unspecified Status: Acute (4) Acute on chronic diastolic CHF (congestive heart failure): Code(s): I50.33 - Acute on chronic diastolic (congestive) heart failure Status: Acute Plan 82-year-old male with history of atrial fibrillation, atrial flutter, supraventricular tachycardia, diastolic heart failure, coronary artery disease, pulmonary hypertension, aortic valve replacement, hypertension, benign prostatic hyperplasia, anemia, and other comorbidities who presented to the emergency department from home for evaluation of shortness of breath. He is well known to the hospitalist service from several recent, lengthy admissions: 06/13/2022 (admitted with MRSA bacteremia, no vegetations noted on YOLIS, complicated by C diff colitis), 07/08/2022 (sepsis, pyelonephritis, acute kidney injury, worsening anemia), 07/25/2022 (altered mental status, influenza a), 08/19/2022 (dizziness, hypotension, hypokalemia complicated by atrial flutter/RVR treated with amiodarone).Vital signs were stable on arrival to the ED however he went into SVT shortly after getting into a room. He converted with adenosine but then went into atrial flutter with rapid ventricular response Had a fall earlier this morning. 1)Fall: Hit his head but no LOC Was trying to get to bathroom, his leg got entangled in sheet CT head unremarkable. 2)Bacteremia: MRSA positive blood culture Start on IV vancomycin Repeat blood culture Obtain echo(h/o MRSA bacteremia in recent past) 3)SVT on Arrival+Afibb with RVR: On oral Amiodarone c/w Eliquis Cardiology following 3)Acute on Chronic CHF: c/w Bumex Cardiology following 4)Chronic Anemia: Obtain iron panel, fecal occult blood Obtain GI consult Seems to be chronic problem with reccurent transfusion 5)CKD stage 3: Monitor kidney function Avoid nephrotoxins Recheck BMP in AM Supplement potassium 6)DVT ppx: on Eliquis 7)Code:Full, need to discuss goals of care 8)Dispo:pending improvement Time Spent With Patient Time with patient: 25 - 35 minutes Subjective Date/time seen: 09/04/22 12:16 Interval history: had a fall this morning, hit his head and left side of body on the floor No LOC No joint pain Developed frontal swelling, no visible bruising Review of Systems Review of Systems: All systems reviewed & are unremarkable except as noted in HPI and below Constitutional: Constitutional: Reports no additional constitutional complaints Eyes: Eyes: Reports no additional eye complaints ENT: Reports system reviewed and no additional complaints, except as documented Cardiovascular: Cardiovascular: Reports no additional cardiovascular complaints Respiratory: Respiratory: Reports no additional respiratory complaints Gastrointestinal: Gastrointestinal: Reports no additional gastrointestinal complaints Genitourinary: Genitourinary: Reports no additional male genitourinary complaints Musculoskeletal: Musculoskeletal: Reports no additional musculoskeletal complaints Neurologic: Reports system reviewed and no additional complaints, except as documented Exam Const: General: comfortable and no acute distress HENMT: Mouth: Yes moist mucous membranes Eyes: Sclera: sclerae normal Neck: Neck: supple Resp: Effort & Inspection: normal respiratory effort Auscultation: diminished lung sounds Cardio: Rate: regular rate Rhythm: regular rhythm GI: GI Palp: Yes Soft to palpation Auscultation: normal bowel sounds Neuro: Speech: normal speech Extrem: General: edema Psych: Mental Status: mental status grossly normal Objective Data Vital Signs Vital
--- NOTE | 2022-09-04 14:02 | WPDGICN ---
Assessment and Plan Assessment and plan (1) Acute on chronic anemia: Code(s): D64.9 - Anemia, unspecified Status: Acute Assessment and Plan: denies overt gib, had colonoscopy over a year ago probably multifactorial (he was evaluated by hematology last time) I offered to do sigmoidoscopy and egd but he would rather wait, still generalized weakness (2) Acute on chronic diastolic CHF (congestive heart failure): Code(s): I50.33 - Acute on chronic diastolic (congestive) heart failure Status: Acute Assessment and Plan: by cardiology, on blood thinners (3) Paroxysmal supraventricular tachycardia: Code(s): I47.1 - Supraventricular tachycardia Status: Acute Assessment and Plan: treated (4) Chronic anticoagulation: Code(s): Z79.01 - group home (current) use of anticoagulants Status: Acute (5) MRSA bacteremia: Code(s): R78.81 - Bacteremia; B95.62 - Methicillin resistant Staphylococcus aureus infection as the cause of diseases classified elsewhere Status: Acute Assessment and Plan: again with + MRSA by primary team GI Consult Note Consult date/time: 09/04/22 14:02 Reason for consult: chronic anemia HPI: Naga De Leon is a 82 year old male with history of atrial fibrillation, atrial flutter, supraventricular tachycardia, diastolic heart failure, coronary artery disease, pulmonary hypertension, aortic valve replacement, hypertension, benign prostatic hyperplasia, chronic anemia this time presented to the emergency department from home for evaluation of shortness of breath and fall few days ago. He is well known to me from previous hospitalization for persistent anemia, he was even evaluated by hematology. He has been in the hospital multiple times, 06/13/2022 admitted with MRSA bacteremia, no vegetations noted on YOLIS, complicated by C diff colitis, 07/08/2022 sepsis, pyelonephritis, acute kidney injury, worsening anemia that required transfusion, 07/25/2022 influenza a, 08/19/2022 (dizziness, hypotension, hypokalemia complicated by atrial flutter/RVR treated with amiodarone. This time again had SVT converted with adenosine then went into atrial flutter with rapid ventricular response and evaluated by cardiology. Also had a fall, CT head chronic changes (reviewed). I am seeing him again because persistent anemia, he had colonoscopy just over a year ago and negative per patient (he is reliable), denies any overt gib. Blood cultures again + MRSA, on antibiotics now. Denies any diarrhea. Review of Systems Constitutional: Constitutional: Reports fatigue, Denies fever(s), Reports lethargy and Reports weakness Eyes: Eyes: Reports no additional eye complaints ENT: Reports Normal hearing present Cardiovascular: Cardiovascular: Denies chest pain, Denies pedal edema, Denies lightheadedness and Reports dyspnea Comments: Notes increased edema Respiratory: Respiratory: Denies chest congestion, Reports dyspnea and Reports dyspnea on exertion Gastrointestinal: Gastrointestinal: Denies abdominal pain and Denies hematochezia Genitourinary: Genitourinary: Denies dysuria Musculoskeletal: Musculoskeletal: Reports no additional musculoskeletal complaints Integumentary/Breasts: Skin/Breast: Denies unusual bruising Neurologic: Denies behavioral changes and Denies confusion Psychiatric: Psychiatric: Denies behavioral changes and Denies confusion [facility] Past Medical History Medical History (Updated 09/04/22 @ 14:08 by Tian Recinos MD) Anemia Aortic valve stenosis Atrial fibrillation Atrial fibrillation with RVR Occurred during admission May 2022 due to sepsis Basal cell carcinoma Blood loss anemia BPH (benign prostatic hyperplasia) Chronic idiopathic thrombocytopenia Collagenous colitis Resulting in chronic loose stools Coronary artery disease Diastolic dysfunction Echocardiogram 04/2022: EF 70% grade 1 diastolic dysfunction, aorti
[2022-09-04] MEDS: polyethylene glycoL 3350 238 GM BOTTLE PO (19:55)
[2022-09-04] MEDS: TAMSULOSIN HCL 0.4 MG CAPSULE PO (19:56)
[2022-09-04] MEDS: ATORVASTATIN 10 MG TABLET PO (19:56)
[2022-09-04] MEDS: METOPROLOL TARTRATE 50 MG TAB PO (19:57)
[2022-09-05] VITALS (17 sets, daily range): BP systolic 83–111; BP diastolic 51–71; PULSE 65–80; RESP 16–23; TEMP 35.6–36.5; O2SAT 96–100
[2022-09-05] MEDS: LEVOTHYROXINE SODIUM 50 MCG TABLET PO (06:23)
[2022-09-05 08:09] LABS: Basophils Percent Auto 0.6 % (0.2-1.2); Eosinophils Percent Auto 0.9 % (0-4.4); Hematocrit 22.8 % (42.0-52.0); Hemoglobin 7.5 g/dL (14.0-18.0); Immature Granulocyte Absolute 0.02 K/mm3 (0.00-0.031); Immature Granulocyte Percent A 0.6 % (0-0.5); Immature Platelet Fraction Pct 6.1 % (0.9-11.2); Lymphocytes Absolute Auto 0.91 K/mm3 (0.9-3.2); Lymphocytes Percent Auto 26.8 % (18.3-44.2); Mean Corpuscular HGB Conc 32.9 g/dl (32-36); Mean Corpuscular Hemoglobin 32.6 pg (26-34); Mean Corpuscular Volume 99.1 fl (80-100); Mean Platelet Volume 11.1 fl (7.4-10.4); Monocytes Absolute Auto 0.4 K/mm3 (0.1-0.6); Monocytes Percent Auto 11.8 % (2.6-8.5); Neutrophils Percent Auto 59.3 % (45.5-73.1); Platelet Count Result 97 k/mm3 (150-375); Red Cell Distribution Width 19.9 % (11.5-14.5); White Blood Count 3.4 K/mm3 (4.5-10.0)
[2022-09-05 08:11] LABS: Anion Gap 1 mmol/L (8-16); Blood Urea Nitrogen 13 mg/dL (9-20); Carbon Dioxide 27 mmol/L (22-30); Chloride 102 mmol/L (98-107); Estimated CRCL calculation 31 ml/min; Estimated Glomerular Filt Rate 45; Glucose 93 mg/dL (65-110); Magnesium 1.8 mg/dL (1.6-2.3); Potassium 3.9 mmol/L (3.4-5.0); Sodium 130 mmol/L (137-145)
[2022-09-05 08:22] LABS: Iron 83 ug/dL (49-181)
[2022-09-05 08:30] LABS: Anisocytosis 1+ (NORMAL); Hypochromasia 1+ (NORMAL); Ovalocytes 1+ (NORMAL); Platelet Estimate Decreased (Adequate); Schistocytes None Seen (NORMAL)
[2022-09-05 08:32] LABS: Percent Iron Saturation 53 % (20-50)
[2022-09-05] MEDS: BUMETANIDE 1 MG TABLET 2 MG PO (09:00)
[2022-09-05] MEDS: MIDODRINE HCL 2.5 MG TABLET 5 MG PO ×2 (09:00→17:29)
[2022-09-05] MEDS: AMIODARONE HCL 200 MG TABLET PO ×2 (09:00→20:30)
[2022-09-05] MEDS: IPRATROPIUM BR 0.02% INH SOLN 0.5 MG/2.5 ML VIAL INHALATION (09:38)
[2022-09-05] MEDS: BUDESONIDE RESPULE NEB 0.5 MG/2 ML AMP INHALATION (09:38)
--- NOTE | 2022-09-05 10:08 | PM.PNCARD ---
Progress Note: A&P Assessment and Plan (1) Atrial flutter with rapid ventricular response: Code(s): I48.92 - Unspecified atrial flutter Status: Acute Assessment and Plan: Recurrent (probable) atrial flutter RVR associated with shortness of breath. Had atrial flutter associated staph sepsis in May, status post cardioversion. Recurrent atrial flutter in July. Recurrent atrial flutter now possibly exacerbated by his exacerbation of CHF. Started on amiodarone drip in the emergency room . Currently in sinus rhythm with first-degree AV block. Continue amiodarone p.o. 200 mg b.i.d. . Continue apixaban low dose based on age and renal function as his anemia tolerates. (2) Acute on chronic diastolic CHF (congestive heart failure): Code(s): I50.33 - Acute on chronic diastolic (congestive) heart failure Status: Acute Assessment and Plan: Improved. Will reduce Bumex 1 mg p.o. b.i.d. (3) Hypotension: Code(s): I95.9 - Hypotension, unspecified Status: Acute Assessment and Plan: blood pressure low normal. Continue to monitor. (4) PSVT (paroxysmal supraventricular tachycardia): Code(s): I47.1 - Supraventricular tachycardia Status: Acute Assessment and Plan: History of PSVT in the past, Had recurrence in the emergency department. Converted with adenosine. (5) Frailty: Code(s): R54 - Age-related physical debility Status: Acute (6) CKD (chronic kidney disease): Code(s): N18.9 - Chronic kidney disease, unspecified Status: Acute Assessment and Plan: Continue to monitor closely with daily BMP. Will reduce Bumex to 1 mg p.o. b.i.d. (7) Anemia: Code(s): D64.9 - Anemia, unspecified Status: Acute Assessment and Plan: Fairly stable; has required intermittent transfusions. (8) S/P aortic valve replacement with bioprosthetic valve: Code(s): Z95.3 - Presence of xenogenic heart valve Status: Acute Assessment and Plan: Normal valve function. Normal left ventricular function, EF 60-65%. Does have moderate mitral regurgitation. TEEs have not showed any vegetations. (9) Electrolyte imbalance: Code(s): E87.8 - Other disorders of electrolyte and fluid balance, not elsewhere classified Status: Acute Assessment and Plan: potassium and magnesium are low. Will replace potassium 40 mg p.o. x1. Magnesium is also markedly diminished and will give 4 g IV x1 Subjective Date/time seen: 09/05/22 10:08 Interval history: 82-year-old with atrial flutter, CHF. Admitted for worsening shortness of breath date of service: 09/04/2022 he feels better. He is less short of breath. Thinks his leg swelling has improved also. He has no chest pain. Date of service 09/05/2022: Awaiting colonoscopy today. Off of oxygen. No shortness of breath or chest pain Review of Systems Constitutional: Constitutional: Reports fatigue, Denies fever(s), Reports lethargy and Reports weakness Eyes: Eyes: Reports no additional eye complaints Cardiovascular: Cardiovascular: Denies chest pain, Denies pedal edema, Denies lightheadedness, Reports dyspnea and Reports dyspnea on exertion Respiratory: Respiratory: Denies chest congestion, Reports dyspnea and Reports dyspnea on exertion Gastrointestinal: Gastrointestinal: Denies abdominal pain and Denies hematochezia Musculoskeletal: Musculoskeletal: Reports no additional musculoskeletal complaints Integumentary/Breasts: Skin/Breast: Reports system reviewed and no additional complaints, except as docu Neurologic: Reports system reviewed and no additional complaints, except as documented, Denies behavioral changes, Denies confusion and Reports weakness Psychiatric: Psychiatric: Denies behavioral changes and Denies confusion Endocrine: Endocrine: Reports fatigue Exam Narrative: PHYSICAL EXAMINATION: GENERAL: Elderly male, Dale
[2022-09-05 10:19] LABS: Ferritin > 2000.00 ng/mL (11.1-264)
[2022-09-05 11:25] LABS: Folic Acid 6.2 ng/mL (2.76->20)
--- NOTE | 2022-09-05 12:15 | PC.NURSE ---
To GI Lab per wheelchair, IV #20 LFA and #18 RAC. Report given to Jose.
[2022-09-05] MEDS: LACTATED RINGERS 1,000 ML 150 ML IV CONT (12:44)
--- NOTE | 2022-09-05 13:08 | WPDANESEPPF ---
Anes - Initial Pre Proc Eval Procedure: Operation Date: 09/05/22 13:45 Proposed Procedures p Esophagogastroduodenoscopy - Tian Recinos MD s Flexible Sigmoidoscopy - Tian Recinos MD Date/Time: 09/05/22 13:08 Surgeon: Rhiannon Lomas MD Pre Op Diagnosis: Tachyarrhythmia,Dehydration,UTI,Weakness Patient Data Age: 82 Gender: M Height: 1.7 m Weight: 73.3 kg Last Vital Signs Temp 96.1 F L 09/05/22 12:30 Pulse 73 09/05/22 12:30 Resp 16 09/05/22 12:30 BP 111/63 09/05/22 12:30 Pulse Ox 100 09/05/22 12:30 O2 Del Method Room Air 09/05/22 12:30 O2 Flow Rate 2 09/02/22 08:00 FiO2 21 09/04/22 20:35 Allergies Allergy/AdvReac Type Severity Reaction Status Date / Time sulfamethizole AdvReac Unknown Confusion Verified 09/05/22 10:12 sulfamethoxazole AdvReac Unknown Confusion Verified 09/05/22 10:12 trimethoprim AdvReac Unknown Confusion Verified 09/05/22 10:12 Home Medications Medication Instructions Recorded Confirmed Type albuterol sulfate 90 mcg/actuation 1 inh inhalation QID PRN Shortness 02/20/20 09/05/22 History aerosol inhaler (ProAir HFA) Of Breath solifenacin 10 mg tablet (Vesicare) 10 mg PO DAILY 07/13/21 09/05/22 History atorvastatin 10 mg tablet (Lipitor) 10 mg PO HS #90 tabs 10/21/21 09/05/22 Rx calcium carb-Ca gluc 500 mg 1 tablet PO DAILY 06/13/22 09/05/22 History calcium-magnesium ox-Mg gluc 250 mg tablet (Calcium Magnesium) clobetasol 0.05 % scalp solution 1 applic topical DAILY PRN Skin 06/13/22 09/05/22 History Irritation phenazopyridine 100 mg tablet 100 mg PO TID 06/13/22 09/05/22 History (Pyridium) Saccharomyces boulardii 250 mg 250 mg PO TID 90 days #270 caps 07/04/22 09/05/22 Rx capsule (Florastor) apixaban 2.5 mg tablet (Eliquis) 2.5 mg PO Q12HR #60 tabs 07/04/22 09/05/22 Rx famotidine 20 mg tablet 20 mg PO Q12HR 30 days #60 tabs 07/04/22 09/05/22 Rx midodrine 2.5 mg tablet 2.5 mg PO TID 90 days #270 tabs 07/04/22 09/05/22 Rx levothyroxine 50 mcg tablet 50 mcg PO DAILY 07/08/22 09/05/22 History (Synthroid) budesonide 0.5 mg/2 mL suspension 0.5 mg (2 mL) inhalation Q12HRT 07/24/22 09/05/22 Rx for nebulization (Pulmicort) #30 mL amiodarone 200 mg tablet (Pacerone) 200 mg PO DAILY@0800 #30 tabs 08/23/22 09/05/22 Rx benzonatate 100 mg capsule 200 mg PO TID PRN Cough 09/01/22 09/05/22 History guaifenesin 600 mg tablet, 600 mg PO Q12H PRN Cough 09/01/22 09/05/22 History extended release 12 hr (Mucinex) ipratropium bromide 0.02 % 0.5 mg inhalation BID 09/01/22 09/05/22 History solution for inhalation metoprolol tartrate 50 mg tablet 50 mg PO HS 09/01/22 09/05/22 History pantoprazole 40 mg tablet,delayed 40 mg PO DAILY 09/01/22 09/05/22 History release tamsulosin 0.4 mg capsule 0.4 mg PO HS 09/01/22 09/05/22 History zolpidem 10 mg tablet 10 mg PO HS 09/01/22 09/05/22 History Laboratory Tests 09/05/22 09/05/22 09/05/22 07:43 07:43 07:43 WBC 3.4 K/mm3 L K/mm3 (4.5-10.0) RBC 2.30 M/mm3 L M/mm3 (4.6-6.20) Hgb 7.5 g/dL L g/dL (14.0-18.0) Hct 22.8 % L % (42.0-52.0) MCV 99.1 fl fl (80-100) MCH 32.6 pg pg (26-34) MCHC 32.9 g/dl g/dl (32-36) RDW 19.9 % H % (11.5-14.5) Plt Count 97 k/mm3 L k/mm3 (150-375) MPV 11.1 fl H fl (7.4-10.4) Immature Gran % (Auto) 0.6 % H % (0-0.5) Neut % (Auto) 59.3 % % (45.5-73.1) Lymph % (Auto) 26.8 % % (18.3-44.2) Hinds % (Auto) 11.8 % H % (2.6-8.5) Eos % (Auto) 0.9 % % (0-4.4) Baso % (Auto) 0.6 % % (0.2-1.2) Lymph # (Auto) 0.91 K/mm3 K/mm3 (0.9-3.2) Hinds # (Auto) 0.4 K/mm3 K/mm3 (0.1-0.6) Eos # (Auto) 0.0 K/mm3 K/mm3 (0-0.3) Baso # (Auto) 0.0 K/mm3 K/mm3 (0.0-0.1) Abs Immat Gran (auto) 0.02 K/mm3 K/mm3 (0.00-0.031) Absolute Neuts (auto)
--- NOTE | 2022-09-05 13:19 | PCOTNOTE ---
Attempted to see Patient for P.M. treatment session. Patient is out od the room at this time. Per RN, Patient is down having a colonoscopy in GI lab.
--- NOTE | 2022-09-05 13:28 | SUR.OPER ---
EDG: start 1324, end 1326 Sigmoidoscopy: start 1331, end 1338
--- NOTE | 2022-09-05 14:06 | PM.IMPN ---
Progress Note: A&P Assessment and Plan (1) Electrolyte imbalance: Code(s): E87.8 - Other disorders of electrolyte and fluid balance, not elsewhere classified Status: Acute (2) Chronic anemia: Code(s): D64.9 - Anemia, unspecified Status: Acute (3) Chronic kidney disease: Code(s): N18.9 - Chronic kidney disease, unspecified Status: Acute (4) Acute on chronic diastolic CHF (congestive heart failure): Code(s): I50.33 - Acute on chronic diastolic (congestive) heart failure Status: Acute Plan 1)Fall: Hit his head but no LOC Was trying to get to bathroom, his leg got entangled in sheet CT head unremarkable. Again pt had fall yesterday pt will need full physical theraphy prior to dc 2)Bacteremia: MRSA positive blood culture Start on IV vancomycin Repeat blood culture Obtain echo(h/o MRSA bacteremia in recent past) 3)SVT on Arrival+Afibb with RVR: On oral Amiodarone c/w Eliquis Cardiology following 3)Acute on Chronic CHF: c/w Bumex Cardiology following 4)Chronic Anemia: Obtain iron panel, fecal occult blood pt having egd and colonscopy today hb is 7.5 5)CKD stage 3: Monitor kidney function sodium is 130 6)DVT ppx: on Eliquis on hold today t Subjective Date/time seen: 09/05/22 14:06 Interval history: 82-year-old male with history of atrial fibrillation, atrial flutter, supraventricular tachycardia, diastolic heart failure, coronary artery disease, pulmonary hypertension, aortic valve replacement, hypertension, benign prostatic hyperplasia, anemia, and other comorbidities who presented to the emergency department from home for evaluation of shortness of breath. He is well known to the hospitalist service from several recent, lengthy admissions: 06/13/2022 (admitted with MRSA bacteremia, no vegetations noted on YOLIS, complicated by C diff colitis), 07/08/2022 (sepsis, pyelonephritis, acute kidney injury, worsening anemia), 07/25/2022 (altered mental status, influenza a), 08/19/2022 (dizziness, hypotension, hypokalemia complicated by atrial flutter/RVR treated with amiodarone).Vital signs were stable on arrival to the ED however he went into SVT shortly after getting into a room. He converted with adenosine but then went into atrial flutter with rapid ventricular response Had a fall yesterday denies any injuries, pt has had 2 falls in the recent few weeks Pt seen by cardiology pt remains in SNR today Pt having egd and colonoscopy today due to recurrent anemia Pt will need physical therapy evaluation prior to dc. Exam Const: General: comfortable and no acute distress Resp: Effort & Inspection: normal respiratory effort Auscultation: diminished lung sounds Cardio: Rate: regular rate Rhythm: regular rhythm GI: Auscultation: normal bowel sounds Neuro: Speech: normal speech Extrem: General: edema Psych: Mental Status: mental status grossly normal Objective Data Vital Signs Vital Signs: Vital Signs - 24 hr 09/04/22 16:00 09/04/22 19:57 09/04/22 20:35 Temperature Pulse Rate 88 84 83 Respiratory Rate 16 Blood Pressure Pulse Oximetry 98 Oxygen Delivery Room Air Fraction of Inspired Oxygen 21 09/04/22 20:35 09/04/22 22:00 09/04/22 20:00 Temperature 36.8 C Pulse Rate 83 75 Respiratory Rate 16 18 Blood Pressure 105/65 Pulse Oximetry 98 Oxygen Delivery Room Air Fraction of Inspired Oxygen 09/04/22 20:00 09/05/22 00:00 09/05/22 04:00 Temperature Pulse Rate 86 78 67 Respiratory Rate Blood Pressure Pulse Oximetry Oxygen Delivery Fraction of Inspired Oxygen 09/05/22 06:00 09/05/22 08:00 09/05/22 09:30 Temperature 36.4 C Pulse Rate 72 71 72 Respiratory Rate 18 16 Blood Pressure 98/62 L Pulse Oximetry 96 Oxygen Delivery Fraction of Inspired Oxygen 09/05/22 09:40 09/05/22 09:42 09/05/22 09:02 Temperature Pulse Rate 72 80 Respiratory Rate 16 Blood Pr
--- NOTE | 2022-09-05 14:13 | PC.NURSE ---
Returned from GI Lab. Report received from Kanchan.
[2022-09-05] MEDS: BUMETANIDE 1 MG TABLET PO (17:29)
[2022-09-05] MEDS: METOPROLOL TARTRATE 50 MG TAB PO (20:29)
[2022-09-05] MEDS: TAMSULOSIN HCL 0.4 MG CAPSULE PO (20:29)
[2022-09-05] MEDS: ATORVASTATIN 10 MG TABLET PO (20:29)
[2022-09-05] MEDS: ZOLPIDEM TARTRATE (*CRX) 5 MG TABLET 10 MG PO (20:29)
[2022-09-05] MEDS: FAMOTIDINE 20 MG TABLET PO (20:30)
[2022-09-05] MEDS: APIXABAN 2.5 MG TABLET PO (20:30)
--- NOTE | 2022-09-05 23:11 | PCRCNOTE ---
past window of administration. see next available administration.
[2022-09-06] VITALS (16 sets, daily range): BP systolic 96–107; BP diastolic 52–66; PULSE 68–79; RESP 16–18; TEMP 35.7–36.3; O2SAT 97–100
[2022-09-06] MEDS: LEVOTHYROXINE SODIUM 50 MCG TABLET PO (04:59)
[2022-09-06 06:21] LABS: Hematocrit 23.2 % (42.0-52.0); Hemoglobin 7.5 g/dL (14.0-18.0); Immature Platelet Fraction Pct 5.3 % (0.9-11.2); Mean Corpuscular HGB Conc 32.3 g/dl (32-36); Mean Corpuscular Hemoglobin 32.2 pg (26-34); Mean Corpuscular Volume 99.6 fl (80-100); Mean Platelet Volume 10.7 fl (7.4-10.4); Platelet Count Result 102 k/mm3 (150-375); Red Blood Count 2.33 M/mm3 (4.6-6.20); Red Cell Distribution Width 19.8 % (11.5-14.5); White Blood Count 3.2 K/mm3 (4.5-10.0)
[2022-09-06 06:29] LABS: Anion Gap 2 mmol/L (8-16); Blood Urea Nitrogen 14 mg/dL (9-20); Calcium 7.2 mg/dL (8.4-10.2); Carbon Dioxide 28 mmol/L (22-30); Chloride 100 mmol/L (98-107); Estimated CRCL calculation 34 ml/min; Estimated Glomerular Filt Rate 48; Glucose 87 mg/dL (65-110); Potassium 3.5 mmol/L (3.4-5.0); Sodium 130 mmol/L (137-145)
[2022-09-06] MEDS: AMIODARONE HCL 200 MG TABLET PO ×2 (09:19→19:59)
[2022-09-06] MEDS: MIDODRINE HCL 2.5 MG TABLET 5 MG PO ×3 (09:19→17:34)
[2022-09-06] MEDS: PANTOPRAZOLE 40 MG TABLET PO (09:19)
[2022-09-06] MEDS: BUMETANIDE 1 MG TABLET PO ×2 (09:20→17:35)
[2022-09-06] MEDS: FAMOTIDINE 20 MG TABLET PO ×2 (09:20→19:59)
[2022-09-06] MEDS: APIXABAN 2.5 MG TABLET PO ×2 (09:20→19:59)
--- NOTE | 2022-09-06 09:24 | PM.PNCARD ---
Progress Note: A&P Assessment and Plan (1) Atrial flutter with rapid ventricular response: Code(s): I48.92 - Unspecified atrial flutter Status: Acute Assessment and Plan: Recurrent (probable) atrial flutter RVR associated with shortness of breath. Had atrial flutter associated staph sepsis in May, status post cardioversion. Recurrent atrial flutter in July. Recurrent atrial flutter now possibly exacerbated by his exacerbation of CHF. Started on amiodarone drip in the emergency room . Currently in sinus rhythm with first-degree AV block. Continue amiodarone p.o. 200 mg b.i.d. . Continue apixaban low dose based on age and renal function as his anemia tolerates. (2) Acute on chronic diastolic CHF (congestive heart failure): Code(s): I50.33 - Acute on chronic diastolic (congestive) heart failure Status: Acute Assessment and Plan: Improved. continue Bumex 1 mg p.o. b.i.d. (3) Hypotension: Code(s): I95.9 - Hypotension, unspecified Status: Acute Assessment and Plan: blood pressure low normal. Continue to monitor. (4) PSVT (paroxysmal supraventricular tachycardia): Code(s): I47.1 - Supraventricular tachycardia Status: Acute Assessment and Plan: History of PSVT in the past, Had recurrence in the emergency department. Converted with adenosine. (5) Frailty: Code(s): R54 - Age-related physical debility Status: Acute (6) CKD (chronic kidney disease): Code(s): N18.9 - Chronic kidney disease, unspecified Status: Acute Assessment and Plan: Continue to monitor closely with daily BMP. continue Bumex to 1 mg p.o. b.i.d. (7) Anemia: Code(s): D64.9 - Anemia, unspecified Status: Acute Assessment and Plan: Fairly stable; has required intermittent transfusions. (8) S/P aortic valve replacement with bioprosthetic valve: Code(s): Z95.3 - Presence of xenogenic heart valve Status: Acute Assessment and Plan: Normal valve function. Normal left ventricular function, EF 60-65%. Does have moderate mitral regurgitation. TTE yesterday concerning for mitral valve vegetation (9) Electrolyte imbalance: Code(s): E87.8 - Other disorders of electrolyte and fluid balance, not elsewhere classified Status: Acute Assessment and Plan: potassium Is low will give KCl 40 mg p.o. x1 (10) MRSA bacteremia: Code(s): R78.81 - Bacteremia; B95.62 - Methicillin resistant Staphylococcus aureus infection as the cause of diseases classified elsewhere Status: Acute Assessment and Plan: patient needs a YOLIS especially given transthoracic echo abnormality involving the mitral valve. Patient will need long-term antibiotics. Will schedule YOLIS Subjective Date/time seen: 09/06/22 09:24 Interval history: 82-year-old with atrial flutter, CHF. Admitted for worsening shortness of breath date of service: 09/04/2022 he feels better. He is less short of breath. Thinks his leg swelling has improved also. He has no chest pain. Date of service 09/05/2022: Awaiting colonoscopy today. Off of oxygen. No shortness of breath or chest pain Date of service 09/06/2022: Echo from yesterday did show possible mitral valve vegetation. He feels fine. No chest pain or shortness of breath. Review of Systems Constitutional: Constitutional: Reports fatigue, Denies fever(s), Reports lethargy and Reports weakness Eyes: Eyes: Reports no additional eye complaints Cardiovascular: Cardiovascular: Denies chest pain, Denies pedal edema, Denies lightheadedness, Reports dyspnea and Reports dyspnea on exertion Respiratory: Respiratory: Denies chest congestion, Reports dyspnea and Reports dyspnea on exertion Gastrointestinal: Gastrointestinal: Denies abdominal pain and Denies hematochezia Musculoskeletal: Musculoskeletal: Reports no additional musculoskeletal complaints I
[2022-09-06] MEDS: BUDESONIDE RESPULE NEB 0.5 MG/2 ML AMP INHALATION ×2 (09:46→22:10)
[2022-09-06] MEDS: IPRATROPIUM BR 0.02% INH SOLN 0.5 MG/2.5 ML VIAL INHALATION ×2 (09:46→22:11)
--- NOTE | 2022-09-06 12:06 | PM.IMPN ---
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, recurrent, just completed long-term course of IV antibiotics with vancomycin on August 01, no source found at that time, thought to be a central catheter that was removed but the culture did not come back viable (2) Chronic kidney disease: Code(s): N18.9 - Chronic kidney disease, unspecified Status: Acute Assessment and Plan: Stable (3) Chronic diastolic CHF (congestive heart failure): Code(s): I50.32 - Chronic diastolic (congestive) heart failure Status: Acute Assessment and Plan: Appears euvolemic (4) Atrial flutter with rapid ventricular response: Code(s): I48.92 - Unspecified atrial flutter Status: Acute Assessment and Plan: Stable (5) Hypothyroidism, unspecified: Code(s): E03.9 - Hypothyroidism, unspecified Status: Acute Assessment and Plan: Stable (6) Essential hypertension: Code(s): I10 - Essential (primary) hypertension Status: Acute Assessment and Plan: Stable (7) Mixed hyperlipidemia: Code(s): E78.2 - Mixed hyperlipidemia Status: Acute (8) Chronic idiopathic thrombocytopenia: Code(s): D69.3 - Immune thrombocytopenic purpura Status: Acute (9) S/P aortic valve replacement with bioprosthetic valve: Code(s): Z95.3 - Presence of xenogenic heart valve Status: Acute Plan DVT prophylaxis with Eliquis GI prophylaxis with PPI Code status full code Subjective Date/time seen: 09/06/22 12:06 Interval history: No overnight events noted. No chest pain or shortness of breath. No nausea, vomiting or diarrhea. No fevers or chills. Review of Systems Review of Systems: 12 point review of systems was assessed and was negative except as noted in the HPI Exam Narrative: General: No acute distress, alert and oriented per baseline HEENT: Atraumatic, normocephalic, mucous membranes moist CV: Regular rate and rhythm, S1, S2 Lungs: Clear to auscultation bilaterally, no rales or crackles noted, no wheezes, good air entry Abdomen: Soft, nontender, nondistended Extremities: Normal to inspection Skin: No rashes noted, no lesions or wounds seen Psych: Euthymic, normal affect Objective Data Vital Signs Vital Signs: Vital Signs - 24 hr 09/05/22 12:30 09/05/22 13:40 09/05/22 13:50 Temperature 96.1 F L Pulse Rate 73 67 66 Respiratory Rate 16 23 H 21 H Blood Pressure 111/63 85/52 L 83/51 L Pulse Oximetry 100 100 99 Oxygen Delivery Room Air Room Air Room Air 09/05/22 14:00 09/05/22 16:00 09/05/22 20:29 Temperature Pulse Rate 70 65 77 Respiratory Rate 20 Blood Pressure 92/71 L Pulse Oximetry 96 Oxygen Delivery Room Air 09/05/22 20:30 09/05/22 20:00 09/05/22 22:00 Temperature 97.7 F Pulse Rate 77 78 73 Respiratory Rate 18 Blood Pressure 100/65 Pulse Oximetry 98 Oxygen Delivery 09/06/22 00:00 09/06/22 04:00 09/06/22 06:00 Temperature 97.4 F L Pulse Rate 68 69 69 Respiratory Rate 18 Blood Pressure 96/66 L Pulse Oximetry 98 Oxygen Delivery 09/06/22 07:43 09/06/22 09:19 09/06/22 09:47 Temperature Pulse Rate 70 Respiratory Rate Blood Pressure Pulse Oximetry 98 Oxygen Delivery Room Air Room Air 09/06/22 09:47 09/06/22 10:00 Temperature Pulse Rate 75 72 Respiratory Rate 16 16 Blood Pressure Pulse Oximetry Oxygen Delivery Intake/Output Intake/Output: Intake & Output 09/03/22 09/04/22 09/05/22 09/06/22 23:59 23:59 23:59 23:59 Intake Total 2190 2690 2720 720 Output Total 1100 1300 1275 600 Balance 1090 1390 1445 120 Meds/Results Medications: Act
[2022-09-06] MEDS: POTASSIUM CHLORIDE 20 MEQ TABLET 40 MEQ PO (12:31)
--- NOTE | 2022-09-06 14:41 | WPDANESPN ---
Anes - Prog Note Post-Op Date/Time: 09/06/22 14:42 Cardiovascular status: normal Respiratory status: normal Airway patency: baseline Mental status: baseline Post-Op hydration status: normal Vital Signs: Last Vital Signs Temp 35.7 C L 09/06/22 14:00 Pulse 72 09/06/22 14:00 Resp 16 09/06/22 14:00 BP 103/52 L 09/06/22 14:00 Pulse Ox 100 09/06/22 14:00 O2 Del Method Room Air 09/06/22 09:47 O2 Flow Rate 2 09/02/22 08:00 FiO2 21 09/04/22 20:35 Pain Score (VAS): 0 I/O: Intake & Output 09/05/22 09/06/22 09/06/22 23:59 07:59 15:59 Intake Total 520 350 490 Output Total 950 600 Balance -430 -250 490 Laboratory Tests 09/06/22 06:12 09/06/22 06:12 09/06/22 09/06/22 06:12 06:12 WBC 3.2 L RBC 2.33 L Hgb 7.5 L Hct 23.2 L MCV 99.6 MCH 32.2 MCHC 32.3 RDW 19.8 H Plt Count 102 L MPV 10.7 H % Immature Plt Fraction 5.3 Sodium 130 L Potassium 3.5 Chloride 100 Carbon Dioxide 28 Anion Gap 2 L BUN 14 Creatinine 1.40 H Estim Creat Clear Calc 34 Estimated GFR 48 L Glucose 87 Calcium 7.2 L Microbiology 09/04/22 10:30 Blood Blood Culture - Preliminary Methicillin Resis Staph Aureus 09/04/22 10:30 Blood Blood Culture - Preliminary Methicillin Resis Staph Aureus Post-procedural complaints: none Patient Feedback: Patient satisfied with anesthetic care.
[2022-09-06] MEDS: ATORVASTATIN 10 MG TABLET PO (19:59)
[2022-09-06] MEDS: METOPROLOL TARTRATE 50 MG TAB PO (19:59)
[2022-09-06] MEDS: TAMSULOSIN HCL 0.4 MG CAPSULE PO (19:59)
[2022-09-06 21:18] LABS: IFOB Positive Control Positive; Immunochemical Fecal Occult Bl Negative (N)
[2022-09-06] MEDS: ZOLPIDEM TARTRATE (*CRX) 5 MG TABLET 10 MG PO (22:00)
[2022-09-07] VITALS (25 sets, daily range): BP systolic 92–118; BP diastolic 58–80; PULSE 59–81; RESP 12–28; TEMP 36.1–37.1; O2SAT 92–100
[2022-09-07] MEDS: ACETAMINOPHEN 325 MG TABLET 650 MG PO (08:01)
[2022-09-07] MEDS: APIXABAN 2.5 MG TABLET PO ×2 (08:01→20:27)
--- NOTE | 2022-09-07 08:05 | PC.NURSE ---
pt to pathology laboratory aide for pending procedure YOLIS
--- NOTE | 2022-09-07 08:43 | PM.IMPN ---
Progress Note: A&P Assessment and Plan (1) MRSA bacteremia: Code(s): R78.81 - Bacteremia; B95.62 - Methicillin resistant Staphylococcus aureus infection as the cause of diseases classified elsewhere Status: Acute Assessment and Plan: Continue vancomycin, YOLIS today, showed mitral valve endocarditis Unknown source, recurrent, just completed long-term course of IV antibiotics with vancomycin on August 01, no source found at that time, thought to be a central catheter that was removed but the culture did not come back viable Consult oncology due to 12 month history of recurrent infections in a previously healthy individual, including recurrent C diff, collagenous colitis, several episodes of bacteremia, UTIs, new onset afib, among others (2) Chronic kidney disease: Code(s): N18.9 - Chronic kidney disease, unspecified Status: Acute Assessment and Plan: Stable (3) Chronic diastolic CHF (congestive heart failure): Code(s): I50.32 - Chronic diastolic (congestive) heart failure Status: Acute Assessment and Plan: Appears euvolemic (4) Atrial flutter with rapid ventricular response: Code(s): I48.92 - Unspecified atrial flutter Status: Acute Assessment and Plan: Stable (5) Hypothyroidism, unspecified: Code(s): E03.9 - Hypothyroidism, unspecified Status: Acute Assessment and Plan: Stable (6) Essential hypertension: Code(s): I10 - Essential (primary) hypertension Status: Acute Assessment and Plan: Stable (7) Mixed hyperlipidemia: Code(s): E78.2 - Mixed hyperlipidemia Status: Acute (8) Chronic idiopathic thrombocytopenia: Code(s): D69.3 - Immune thrombocytopenic purpura Status: Acute (9) S/P aortic valve replacement with bioprosthetic valve: Code(s): Z95.3 - Presence of xenogenic heart valve Status: Acute Plan DVT prophylaxis with Eliquis GI prophylaxis with PPI Code status full code Subjective Date/time seen: 09/07/22 08:43 Interval history: No overnight events noted. No chest pain or shortness of breath. No nausea, vomiting or diarrhea. No fevers or chills. Patient states he feels about the same today as yesterday, maybe a little tired from the sedation from the YOLIS. Review of Systems Review of Systems: 12 point review of systems was assessed and was negative except as noted in the HPI Exam Narrative: General: No acute distress, alert and oriented per baseline HEENT: Atraumatic, normocephalic, mucous membranes moist CV: Regular rate and rhythm, S1, S2 murmur noted Lungs: Clear to auscultation bilaterally, no rales or crackles noted, no wheezes, good air entry Abdomen: Soft, nontender, nondistended Extremities: Normal to inspection Skin: No rashes noted, no lesions or wounds seen Psych: Euthymic, normal affect Objective Data Vital Signs Vital Signs: Vital Signs - 24 hr 09/06/22 09:19 09/06/22 09:47 09/06/22 09:47 Temperature Pulse Rate 70 75 Respiratory Rate 16 Blood Pressure Pulse Oximetry 98 Oxygen Delivery Room Air 09/06/22 10:00 09/06/22 12:00 09/06/22 14:00 Temperature 96.2 F L Pulse Rate 72 79 72 Respiratory Rate 16 16 Blood Pressure 103/52 L Pulse Oximetry 100 Oxygen Delivery 09/06/22 16:00 09/06/22 19:58 09/06/22 19:59 Temperature 97.4 F L Pulse Rate 72 78 78 Respiratory Rate 17 Blood Pressure 107/62 Pulse Oximetry 99 Oxygen Delivery 09/06/22 19:59 09/06/22 20:00 09/06/22 22:14 Temperature Pulse Rate 78 70 Respiratory Rate 16 Blood Pressure Pulse Oximetry Oxygen Delivery Room Air 09/06/22 22:15 09/06/22 22:25 09/06/22 20:00 Temperature Pulse Rate 73 79 Respiratory Rate 16 Blood Pressure Pulse Oximetry 97 Oxygen Delivery Room Air 09/07/22 00:00 09/07/22 04:00 09/07/22 06:00 Temperature 97.6 F Pulse Rate 61 63 66 Respiratory Rat
--- NOTE | 2022-09-07 09:58 | WPDMODSED ---
Moderate Sedation Note-Pt Data Patient Data Diagnosis: Bacteremia Present Complaint: Bacteremia Procedure to be performed/Plan: YOLIS Allergies Allergy/AdvReac Type Severity Reaction Status Date / Time sulfamethizole AdvReac Unknown Confusion Verified 09/05/22 10:12 sulfamethoxazole AdvReac Unknown Confusion Verified 09/05/22 10:12 trimethoprim AdvReac Unknown Confusion Verified 09/05/22 10:12 Home Medications Medication Instructions Recorded Confirmed Type albuterol sulfate 90 mcg/actuation 1 inh inhalation QID PRN Shortness 02/20/20 09/05/22 History aerosol inhaler (ProAir HFA) Of Breath solifenacin 10 mg tablet (Vesicare) 10 mg PO DAILY 07/13/21 09/05/22 History atorvastatin 10 mg tablet (Lipitor) 10 mg PO HS #90 tabs 10/21/21 09/05/22 Rx calcium carb-Ca gluc 500 mg 1 tablet PO DAILY 06/13/22 09/05/22 History calcium-magnesium ox-Mg gluc 250 mg tablet (Calcium Magnesium) clobetasol 0.05 % scalp solution 1 applic topical DAILY PRN Skin 06/13/22 09/05/22 History Irritation phenazopyridine 100 mg tablet 100 mg PO TID 06/13/22 09/05/22 History (Pyridium) Saccharomyces boulardii 250 mg 250 mg PO TID 90 days #270 caps 07/04/22 09/05/22 Rx capsule (Florastor) apixaban 2.5 mg tablet (Eliquis) 2.5 mg PO Q12HR #60 tabs 07/04/22 09/05/22 Rx famotidine 20 mg tablet 20 mg PO Q12HR 30 days #60 tabs 07/04/22 09/05/22 Rx midodrine 2.5 mg tablet 2.5 mg PO TID 90 days #270 tabs 07/04/22 09/05/22 Rx levothyroxine 50 mcg tablet 50 mcg PO DAILY 07/08/22 09/05/22 History (Synthroid) budesonide 0.5 mg/2 mL suspension 0.5 mg (2 mL) inhalation Q12HRT 07/24/22 09/05/22 Rx for nebulization (Pulmicort) #30 mL amiodarone 200 mg tablet (Pacerone) 200 mg PO DAILY@0800 #30 tabs 08/23/22 09/05/22 Rx benzonatate 100 mg capsule 200 mg PO TID PRN Cough 09/01/22 09/05/22 History guaifenesin 600 mg tablet, 600 mg PO Q12H PRN Cough 09/01/22 09/05/22 History extended release 12 hr (Mucinex) ipratropium bromide 0.02 % 0.5 mg inhalation BID 09/01/22 09/05/22 History solution for inhalation metoprolol tartrate 50 mg tablet 50 mg PO HS 09/01/22 09/05/22 History pantoprazole 40 mg tablet,delayed 40 mg PO DAILY 09/01/22 09/05/22 History release tamsulosin 0.4 mg capsule 0.4 mg PO HS 09/01/22 09/05/22 History zolpidem 10 mg tablet 10 mg PO HS 09/01/22 09/05/22 History Current Medications: Active Medications Acetaminophen (Acetaminophen 325 Mg Tablet) 650 mg PO Q6H PRN PRN Reason: Mild Pain (1-3) or Fever Last Admin: 09/07/22 08:01 Dose: 650 mg Albuterol (Albuterol Sulfate (*Sp) Aerosol 1 Puff) 1 puff INHALATION QIDRT PRN PRN Reason: Shortness Of Breath Amiodarone HCl (Amiodarone Hcl 200 Mg Tablet) 200 mg PO Q12HR [facility] Last Admin: 09/06/22 19:59 Dose: 200 mg Apixaban (Apixaban 2.5 Mg Tablet) 2.5 mg PO Q12HR [facility] Last Admin: 09/07/22 08:01 Dose: 2.5 mg Atorvastatin Calcium (Atorvastatin 10 Mg Tablet) 10 mg PO [facility] Last Admin: 09/06/22 19:59 Dose: 10 mg Budesonide (Budesonide Respule Neb 0.5 Mg/2 Ml Amp) 0.5 mg INHALATION Q12HRT [facility] Last Admin: 09/06/22 22:10 Dose: 0.5 mg Bumetanide (Bumetanide 1 Mg Tablet) 1 mg PO BID [facility] Last Admin: 09/06/22 17:35 Dose: 1 mg Famotidine (Famotidine 20 Mg Tablet) 20 mg PO Q12HR [facility] Last Admin: 09/06/22 19:59 Dose: 20 mg Guaifenesin (Guaifenesin 12 Hr 600 Mg Tabcr) 600 mg PO Q12H PRN PRN Reason: Cough Last Admin: 09/03/22 13:51 Dose: 600 mg Vancomycin HCl (Vancomycin 1,250 Mg/D5w 250 Ml) 1,250 mg in 250 mls @ 200 mls/hr IVPB Q24H [facility] Last Infusion: 09/06/22 10:34 Dose: Infused Ipratropium [place] (Ipratropium Br 0.02% Inh Soln 0.5 Mg/2.5 Ml Vial) 0.5 mg INHALATION Q12HRT [facility] Last Admin: 09/06/22 22:11 Dose: 0.5 mg Levothyroxine Sodium (Levothyroxine Sodium 50 Mcg Tablet) 50 mcg PO DAILY@0630 [facility] Last Admin: 09/07/22 05:38 Dose: Not Given Metoprolol Tartrate (Metoprolol Tartrate 50 Mg Tab) 50 mg PO HS [facility] Last Admin: 09/06/22 19:59 Do
--- NOTE | 2022-09-07 09:59 | WPDTEECHO ---
YOLIS TransEsophageal Echocardiogram Date of procedure: 09/07/22 Procedure Type: Date of Procedure: 09/07/2022 Brief History Of Present Illness: Patient is a pleasant 82-year-old male who is referred for transesophageal echocardiogram for evaluation of possible infective endocarditis. Procedure In Detail: After verbal and written informed consent was obtained, the patient risks, benefits, and alternatives explained in detail. The patient agreed to proceed with the plan of care as outlined above.?The patient was evaluated at bedside in the [facility] procedure room.?The posterior oropharynx, neck, and jaw angle all within normal limits on examination. Lungs were clear to auscultation. See pre-sedation note for further details. The patient was then placed in the appropriate 30 to 45 degree angle supine position at a slight left lateral decubitus position.?Patient was monitored throughout the study with telemetry, oxygen saturation, end-tidal CO2 monitoring, blood pressure, heart rate, and respirations.? The posterior hypopharynx was then locally anesthetized using repeated administration of Hurricaine spray as well as gargled viscous lidocaine.? After local anesthetic of the posterior hypopharynx was achieved and the oral bite block placed, moderate sedation was administered.? After confirmation of adequate moderate sedation, the transesophageal echocardiogram probe was advanced through the oral bite block into the posterior hypopharynx and into the esophagus easily and without complication.? Multiple, multiplanar echocardiographic images were obtained in multiple standard re- projections.? Continuous-wave, and color-flow Doppler were utilized in conjunction with this study.? At the conclusion of the study, the transesophageal echocardiogram probe was removed easily and without complication.? The patient tolerated the procedure well without difficulty.? Patient was in sinus rhythm throughout the study. Moderate Sedation/Anesthesia administration: Patient reports no prior problems with sedation/anesthesia. Please see pre-sedation noted for physical examination documentation. As noted above, after adequate local anesthesia of the posterior hypopharynx was achieved, a total of? 2mg intravenous Versed and a total of 50mcg intravenous Fentanyl in multiple divided doses was administered for moderate sedation.? Sedation start time was 09:20 and end time was 09:46 for a total intra-service/procedure face-face time of?26 minutes.? Sedation was administered by a qualified/certified observer?Deana MOSELEY under my supervision with intra-procedure [id number] observation and management throughout the entirety of the procedure.? There were no other issues or complications and patient tolerated the procedure well. See post-anesthesia documentation. FINDINGS: LEFT VENTRICLE: Size and systolic function were within normal limits without wall motion abnormalities with ejection fraction of 60-65%. RIGHT VENTRICLE:? Size and systolic function within normal limits. LEFT ATRIUM: Moderately enlarged. RIGHT ATRIUM: Normal size. INTERATRIAL SEPTUM: ? Interatrial septum is anatomically normal. MITRAL VALVE: The mitral valve annulus is severely calcified. Mitral valve leaflets are thickened. There is a small mass on the atrial side of the mitral valve. Appears somewhat calcified. Mass is mobile, but does not appear to have independent motion compared to the motion of the mitral valve leaflets. This mass was not visualized on his last YOLIS from 05/2022. There is severe mitral regurgitation. AORTIC VALVE: Bioprosthetic aortic valve seen. No valvular vegetations identified. TRICUSPID VALVE: The tricuspid valve has thickened leaflets. There is moderate tricuspid regurgitation. No valvular vegetations identified. . PULMONIC VALVE: Pulmonic valve appeared grossly normal. No vegetations identified. LEFT ATRIAL APPENDAGE: Anatomically normal structure with prominent pectinate muscles without
--- NOTE | 2022-09-07 10:09 | PM.PNCARD ---
Progress Note: A&P Assessment and Plan (1) Atrial flutter with rapid ventricular response: Code(s): I48.92 - Unspecified atrial flutter Status: Acute Assessment and Plan: Recurrent (probable) atrial flutter RVR associated with shortness of breath. Had atrial flutter associated staph sepsis in May, status post cardioversion. Recurrent atrial flutter in July. Recurrent atrial flutter now possibly exacerbated by his exacerbation of CHF. Started on amiodarone drip in the emergency room . Currently in sinus rhythm with first-degree AV block. Continue amiodarone p.o. 200 mg b.i.d. . Continue apixaban low dose based on age and renal function as his anemia tolerates. (2) Acute on chronic diastolic CHF (congestive heart failure): Code(s): I50.33 - Acute on chronic diastolic (congestive) heart failure Status: Acute Assessment and Plan: Improved. continue Bumex 1 mg p.o. b.i.d. (3) Hypotension: Code(s): I95.9 - Hypotension, unspecified Status: Acute Assessment and Plan: blood pressure low normal. Continue to monitor. (4) PSVT (paroxysmal supraventricular tachycardia): Code(s): I47.1 - Supraventricular tachycardia Status: Acute Assessment and Plan: History of PSVT in the past, Had recurrence in the emergency department. Converted with adenosine. (5) Frailty: Code(s): R54 - Age-related physical debility Status: Acute (6) CKD (chronic kidney disease): Code(s): N18.9 - Chronic kidney disease, unspecified Status: Acute Assessment and Plan: Continue to monitor closely with daily BMP. continue Bumex 1 mg p.o. b.i.d. (7) Anemia: Code(s): D64.9 - Anemia, unspecified Status: Acute Assessment and Plan: Fairly stable; has required intermittent transfusions. (8) S/P aortic valve replacement with bioprosthetic valve: Code(s): Z95.3 - Presence of xenogenic heart valve Status: Acute Assessment and Plan: Normal valve function. Normal left ventricular function, EF 60-65%. TTE 09/04 concerning for mitral valve vegetation with moderate MR. (9) MRSA bacteremia: Code(s): R78.81 - Bacteremia; B95.62 - Methicillin resistant Staphylococcus aureus infection as the cause of diseases classified elsewhere Status: Acute Assessment and Plan: YOLIS 09/07 showed the mitral valve annulus is severely calcified. Mitral valve leaflets are thickened. There is a small mass on the atrial side of the mitral valve. Appears somewhat calcified. Mass is mobile, but does not appear to have independent motion compared to the motion of the mitral valve leaflets. This mass was not visualized on his last YOLIS from 05/2022. There is severe mitral regurgitation. Given this finding, would treat patient as infective endocarditis. Subjective Date/time seen: 09/07/22 10:09 Interval history: 82-year-old with atrial flutter, CHF. Admitted for worsening shortness of breath date of service: 09/04/2022 he feels better. He is less short of breath. Thinks his leg swelling has improved also. He has no chest pain. Date of service 09/05/2022: Awaiting colonoscopy today. Off of oxygen. No shortness of breath or chest pain Date of service 09/06/2022: Echo from yesterday did show possible mitral valve vegetation. He feels fine. No chest pain or shortness of breath. Date of service 09/07: No acute events overnight. Planned for YOLIS this morning. No chest pain or shortness of breath. Review of Systems Review of Systems: 8-point ROS obtained. Negative, unless stated in HPI. Exam Narrative: PHYSICAL EXAMINATION: GENERAL: Elderly male, Alert, oriented, no acute distress MENTAL STATUS: affect appropriate to mood EYES: Extraocular movements intact, no pallor EARS: External ears appear normal, hearing grossly normal MOUTH: Mucous membranes moist, tongue normal NECK: Supple, no
--- NOTE | 2022-09-07 11:07 | PC.NURSE ---
pt returned back from [facility] [employer], reviewed plan of care, at bedside
--- NOTE | 2022-09-07 11:07 | PC.NURSE ---
call placed to jazz singer that pt is back in room for vanco trough to be drawn
[2022-09-07 11:30] LABS: Basophils Percent Auto 0.8 % (0.2-1.2); Eosinophils Percent Auto 1.1 % (0-4.4); Hematocrit 22.4 % (42.0-52.0); Hemoglobin 7.4 g/dL (14.0-18.0); Immature Granulocyte Absolute 0.03 K/mm3 (0.00-0.031); Immature Granulocyte Percent A 0.8 % (0-0.5); Immature Platelet Fraction Pct 4.5 % (0.9-11.2); Lymphocytes Absolute Auto 1.25 K/mm3 (0.9-3.2); Lymphocytes Percent Auto 34.8 % (18.3-44.2); Mean Platelet Volume 10.6 fl (7.4-10.4); Monocytes Absolute Auto 0.4 K/mm3 (0.1-0.6); Monocytes Percent Auto 12.3 % (2.6-8.5); Neutrophils Absolute Auto 1.8 K/mm3 (1.3-6.7); Neutrophils Percent Auto 50.2 % (45.5-73.1); Platelet Count Result 110 k/mm3 (150-375); Red Blood Count 2.31 M/mm3 (4.6-6.20); Red Cell Distribution Width 19.7 % (11.5-14.5); White Blood Count 3.6 K/mm3 (4.5-10.0)
[2022-09-07 11:40] LABS: Alanine Aminotransferase 37 U/L (6-50); Albumin Level 2.5 g/dL (3.5-5.1); Alkaline Phosphatase 112 U/L (38-126); Anion Gap 3 mmol/L (8-16); Aspartate Amino Transferase 29 U/L (17-59); Bilirubin,Total 0.4 mg/dL (0.2-1.3); Blood Urea Nitrogen 14 mg/dL (9-20); Calcium 7.4 mg/dL (8.4-10.2); Carbon Dioxide 28 mmol/L (22-30); Chloride 97 mmol/L (98-107); Estimated CRCL calculation 28 ml/min; Estimated Glomerular Filt Rate 39; Glucose 88 mg/dL (65-110); Potassium 3.7 mmol/L (3.4-5.0); Sodium 128 mmol/L (137-145)
[2022-09-07] MEDS: MIDODRINE HCL 2.5 MG TABLET 5 MG PO ×2 (12:09→18:11)
[2022-09-07] MEDS: PANTOPRAZOLE 40 MG TABLET PO (12:09)
[2022-09-07] MEDS: BUMETANIDE 1 MG TABLET PO ×2 (12:09→18:10)
[2022-09-07] MEDS: FAMOTIDINE 20 MG TABLET PO ×2 (12:09→20:27)
[2022-09-07] MEDS: AMIODARONE HCL 200 MG TABLET PO ×2 (12:10→20:27)
[2022-09-07 12:29] LABS: Vancomycin Trough 16.7 ug/mL (10.0-20.0)
[2022-09-07] MEDS: TAMSULOSIN HCL 0.4 MG CAPSULE PO (20:27)
[2022-09-07] MEDS: METOPROLOL TARTRATE 50 MG TAB PO (20:27)
[2022-09-07] MEDS: ATORVASTATIN 10 MG TABLET PO (20:27)
[2022-09-07] MEDS: BUDESONIDE RESPULE NEB 0.5 MG/2 ML AMP INHALATION (20:47)
[2022-09-07] MEDS: IPRATROPIUM BR 0.02% INH SOLN 0.5 MG/2.5 ML VIAL INHALATION (20:47)
[2022-09-07] MEDS: ZOLPIDEM TARTRATE (*CRX) 5 MG TABLET 10 MG PO (22:24)
[2022-09-08] VITALS (16 sets, daily range): BP systolic 106–109; BP diastolic 52–68; PULSE 60–81; RESP 14–20; TEMP 35.7–37.2; O2SAT 95–97
[2022-09-08] MEDS: LEVOTHYROXINE SODIUM 50 MCG TABLET PO (05:42)
[2022-09-08 05:59] LABS: Basophils Percent Auto 1.1 % (0.2-1.2); Eosinophils Percent Auto 1.1 % (0-4.4); Hematocrit 22.4 % (42.0-52.0); Hemoglobin 7.5 g/dL (14.0-18.0); Immature Granulocyte Absolute 0.05 K/mm3 (0.00-0.031); Immature Granulocyte Percent A 1.3 % (0-0.5); Lymphocytes Absolute Auto 1.26 K/mm3 (0.9-3.2); Lymphocytes Percent Auto 33.9 % (18.3-44.2); Mean Corpuscular HGB Conc 33.5 g/dl (32-36); Mean Corpuscular Hemoglobin 32.1 pg (26-34); Mean Corpuscular Volume 95.7 fl (80-100); Mean Platelet Volume 10.3 fl (7.4-10.4); Monocytes Absolute Auto 0.4 K/mm3 (0.1-0.6); Monocytes Percent Auto 11.6 % (2.6-8.5); Neutrophils Absolute Auto 1.9 K/mm3 (1.3-6.7); Platelet Count Result 109 k/mm3 (150-375); Red Blood Count 2.34 M/mm3 (4.6-6.20); Red Cell Distribution Width 19.5 % (11.5-14.5); White Blood Count 3.7 K/mm3 (4.5-10.0)
[2022-09-08 06:15] LABS: Alanine Aminotransferase 35 U/L (6-50); Albumin Level 2.4 g/dL (3.5-5.1); Alkaline Phosphatase 110 U/L (38-126); Anion Gap 2 mmol/L (8-16); Aspartate Amino Transferase 27 U/L (17-59); Bilirubin,Total 0.5 mg/dL (0.2-1.3); Blood Urea Nitrogen 15 mg/dL (9-20); Calcium 7.2 mg/dL (8.4-10.2); Carbon Dioxide 30 mmol/L (22-30); Chloride 97 mmol/L (98-107); Estimated CRCL calculation 26 ml/min; Estimated Glomerular Filt Rate 36; Glucose 87 mg/dL (65-110); Potassium 3.6 mmol/L (3.4-5.0); Sodium 129 mmol/L (137-145)
[2022-09-08] MEDS: FAMOTIDINE 20 MG TABLET PO ×2 (08:39→20:03)
[2022-09-08] MEDS: MIDODRINE HCL 2.5 MG TABLET 5 MG PO ×3 (08:39→16:53)
[2022-09-08] MEDS: APIXABAN 2.5 MG TABLET PO ×2 (08:39→20:03)
[2022-09-08] MEDS: BUMETANIDE 1 MG TABLET PO ×2 (08:39→16:53)
[2022-09-08] MEDS: AMIODARONE HCL 200 MG TABLET PO ×2 (08:39→20:02)
[2022-09-08] MEDS: PANTOPRAZOLE 40 MG TABLET PO (08:39)
--- NOTE | 2022-09-08 09:21 | PM.PNCARD ---
Progress Note: A&P Assessment and Plan (1) Atrial flutter with rapid ventricular response: Code(s): I48.92 - Unspecified atrial flutter Status: Acute Assessment and Plan: Recurrent (probable) atrial flutter RVR associated with shortness of breath. Had atrial flutter associated staph sepsis in May, status post cardioversion. Recurrent atrial flutter in July. Recurrent atrial flutter now possibly exacerbated by his exacerbation of CHF. Started on amiodarone drip in the emergency room . Currently in sinus rhythm with first-degree AV block. Continue amiodarone p.o. 200 mg b.i.d. . Continue apixaban low dose based on age and renal function as his anemia tolerates. (2) Acute on chronic diastolic CHF (congestive heart failure): Code(s): I50.33 - Acute on chronic diastolic (congestive) heart failure Status: Acute Assessment and Plan: Improved. continue Bumex 1 mg p.o. b.i.d. (3) Hypotension: Code(s): I95.9 - Hypotension, unspecified Status: Acute Assessment and Plan: blood pressure low normal. Continue to monitor. (4) PSVT (paroxysmal supraventricular tachycardia): Code(s): I47.1 - Supraventricular tachycardia Status: Acute Assessment and Plan: History of PSVT in the past, Had recurrence in the emergency department. Converted with adenosine. (5) Frailty: Code(s): R54 - Age-related physical debility Status: Acute (6) CKD (chronic kidney disease): Code(s): N18.9 - Chronic kidney disease, unspecified Status: Acute Assessment and Plan: Continue to monitor closely with daily BMP. continue Bumex 1 mg p.o. b.i.d. (7) Anemia: Code(s): D64.9 - Anemia, unspecified Status: Acute Assessment and Plan: Fairly stable; has required intermittent transfusions. (8) S/P aortic valve replacement with bioprosthetic valve: Code(s): Z95.3 - Presence of xenogenic heart valve Status: Acute Assessment and Plan: Normal valve function. Normal left ventricular function, EF 60-65%. TTE 09/04 concerning for mitral valve vegetation with moderate MR. YOLIS performed 09/07 showed severe MR with a small, somewhat calcified mass on the atrial side of the mitral valve. He has MRSA bacteremia, therefore treating for infective endocarditis. (9) MRSA bacteremia: Code(s): R78.81 - Bacteremia; B95.62 - Methicillin resistant Staphylococcus aureus infection as the cause of diseases classified elsewhere Status: Acute Assessment and Plan: YOLIS 09/07 showed the mitral valve annulus is severely calcified. Mitral valve leaflets are thickened. There is a small mass on the atrial side of the mitral valve. Appears somewhat calcified. Mass is mobile, but does not appear to have independent motion compared to the motion of the mitral valve leaflets. This mass was not visualized on his last YOLIS from 05/2022. There is severe mitral regurgitation. Given this finding, would treat patient as infective endocarditis. Subjective Date/time seen: 09/08/22 09:21 Cardiology follow up for atrial flutter, CHF, MR Interval history: He's feeling well this morning. Denies any shortness of breath, palpitations, or chest pain. Does still have some peripheral edema. Review of Systems Constitutional: Constitutional: Reports fatigue, Denies fever(s), Reports lethargy and Reports weakness Eyes: Eyes: Reports no additional eye complaints Cardiovascular: Cardiovascular: Denies chest pain, Denies pedal edema, Denies lightheadedness, Reports dyspnea and Reports dyspnea on exertion Respiratory: Respiratory: Denies chest congestion, Reports dyspnea and Reports dyspnea on exertion Gastrointestinal: Gastrointestinal: Denies abdominal pain and Denies hematochezia Musculoskeletal: Musculoskeletal: Reports no additional musculoskeletal complaints Integumentary/Breasts: Skin/Breast: Reports system reviewed and no
--- NOTE | 2022-09-08 11:02 | PCRCNOTE ---
Window of time for administration has passed. See next scheduled administration.
--- NOTE | 2022-09-08 12:32 | PM.IMPN ---
Progress Note: A&P Assessment and Plan (1) MRSA bacteremia: Code(s): R78.81 - Bacteremia; B95.62 - Methicillin resistant Staphylococcus aureus infection as the cause of diseases classified elsewhere Status: Acute Assessment and Plan: YOLIS showed mitral valve endocarditis Will d/c vanc in favor of daptomycin every other day, starting tomorrow, to complete an 8 week course Check CMP/CPKs and consider repeat YOLIS at 6 weeks and consider d/c abx, otherwise, would favor an extended course d/t recurrent MRSA bacteremia and possible underlying immunocompromised state Recurrent bacteremia, just completed long-term course of IV antibiotics with vancomycin on August 01, no source found at that time, thought to be a central catheter that was removed but the culture did not come back viable Consult oncology due to 12 month history of recurrent infections in a previously healthy individual, including recurrent C diff, collagenous colitis, several episodes of bacteremia, UTIs, new onset afib, among others (2) Chronic kidney disease: Code(s): N18.9 - Chronic kidney disease, unspecified Status: Acute Assessment and Plan: Worsening, consult nephrology (3) Chronic diastolic CHF (congestive heart failure): Code(s): I50.32 - Chronic diastolic (congestive) heart failure Status: Acute Assessment and Plan: Appears euvolemic (4) Atrial flutter with rapid ventricular response: Code(s): I48.92 - Unspecified atrial flutter Status: Acute Assessment and Plan: Stable, cont metoprolol (5) Hypothyroidism, unspecified: Code(s): E03.9 - Hypothyroidism, unspecified Status: Acute Assessment and Plan: Stable, check TSH (6) Essential hypertension: Code(s): I10 - Essential (primary) hypertension Status: Acute Assessment and Plan: Stable, requiring midodrine at this point (7) Mixed hyperlipidemia: Code(s): E78.2 - Mixed hyperlipidemia Status: Acute (8) Chronic idiopathic thrombocytopenia: Code(s): D69.3 - Immune thrombocytopenic purpura Status: Acute Assessment and Plan: stable (9) S/P aortic valve replacement with bioprosthetic valve: Code(s): Z95.3 - Presence of xenogenic heart valve Status: Acute Assessment and Plan: stable (10) Hyponatremia: Code(s): E87.1 - Hypo-osmolality and hyponatremia Status: Acute Assessment and Plan: improving, monitor Plan DVT prophylaxis with Eliquis GI prophylaxis with PPI Code status full code Subjective Date/time seen: 09/08/22 12:32 Interval history: No overnight events noted. No chest pain or shortness of breath. No nausea, vomiting or diarrhea. No fevers or chills. Review of Systems Review of Systems: 12 point review of systems was assessed and was negative except as noted in the HPI Exam Narrative: General: No acute distress, alert and oriented per baseline HEENT: Atraumatic, normocephalic, mucous membranes moist CV: Regular rate and rhythm, S1, S2 murmur noted Lungs: Clear to auscultation bilaterally, no rales or crackles noted, no wheezes, good air entry Abdomen: Soft, nontender, nondistended Extremities: Normal to inspection Skin: No rashes noted, no lesions or wounds seen Psych: Euthymic, normal affect Objective Data Vital Signs Vital Signs: Vital Signs - 24 hr 09/07/22 13:47 09/07/22 16:00 09/07/22 20:27 Temperature 96.9 F L Pulse Rate 73 67 77 Respiratory Rate 16 Blood Pressure 111/69 Pulse Oximetry 99 Oxygen Delivery 09/07/22 20:27 09/07/22 20:45 09/07/22 20:45 Temperature Pulse Rate 77 81 81 Respiratory Rate 20 Blood Pressure Pulse Oximetry 96 Oxygen Delivery Room Air 09/07/22 20:00 09/07/22 21:01 09/07/22 22:00 Temperature 98.7 F Pulse Rate 75 78 Respiratory Rate 18 18 Blood Pressure 105/71 Pulse Oximetry 97 Oxygen Delivery Room Air
[2022-09-08] MEDS: DAPTOmycin 600 MG in SODIUM CHLORIDE 0.9% IV 50 ML 100 MG IVPB (14:52)
[2022-09-08] MEDS: ALBUTEROL SULFATE (*SP) AEROSOL 1 PUFF INHALATION (14:58)
[2022-09-08] MEDS: guaiFENesin 12 HR 600 MG TABCR PO (15:18)
--- NOTE | 2022-09-08 15:53 | PM.CNNEP ---
Assessment and Plan Assessment and plan (1) ZORAN (acute kidney injury): Code(s): N17.9 - Acute kidney failure, unspecified Status: Acute Assessment and Plan: presumably due to infection once again his creatinine has been noted to fluctuate with infections in the past hopefully, it will stablize with ongoing current therapy given endocarditis, atheroembolic disease is a possibility.... check renal ultrasound check urine electrolytes check urine eosinophils (AIN possible given his multitude of antibiotics over the last few months) check complements follow trend of repeat labs and UOP (2) Stage 3a chronic kidney disease: Code(s): N18.31 - Chronic kidney disease, stage 3a Status: Chronic Assessment and Plan: baseline creatinine seems to 1.3mg/dl (following his multiple hosptializations) due to recurrent infections, need for diuretics, and fluctuating hemodynamics (3) MRSA bacteremia: Code(s): R78.81 - Bacteremia; B95.62 - Methicillin resistant Staphylococcus aureus infection as the cause of diseases classified elsewhere Status: Acute Assessment and Plan: complicated by mitral valve endocarditis (as noted by recent YOLIS) on antibiotic therapy (4) Acute on chronic diastolic CHF (congestive heart failure): Code(s): I50.33 - Acute on chronic diastolic (congestive) heart failure Status: Acute Assessment and Plan: appears compensated at this time on oral bumex (5) Atrial flutter with rapid ventricular response: Code(s): I48.92 - Unspecified atrial flutter Status: Acute Assessment and Plan: on amiodarone NSR at this time Cardiology following Will continue to follow. History of Present Illness Reason for Consult Consult date: 09/08/22 Reason for consult: acute renal failure (on chronic kidney disease) Chief Complaint Chief complaint: Tachyarrhythmia,Dehydration,UTI,Weakness History of Present Illness Narrative: The patient is an 82-year-old male with a past medical history is outlined below who presented to [facility] Emergency room for further evaluation of shortness of breath. The patient has had multiple hospitalizations here at [facility] since May of 2022 due to bacteremia, C diff colitis, pyelonephritis, sepsis, influenza A...etc with associated complications including acute renal failure. On the morning of admission, his family noted that he was having shortness of breath chest with having conversation with them. Given his complex history as already noted, she brought him to the ER for further assessment Workup and evaluation emergency room demonstrated stable hemodynamics on initial presentation but while he was in the ER, he had a episode SVT. He subsequently converted with the use of adenosine but then went into atrial flutter with rapid ventricular response. He subsequently was started on amiodarone drip which is helped control his heart rate. This was continued up until his admission to the floor. He had no real other complaints other than the aforementioned shortness of breath prior to presentation with regard to fevers, chills, nausea, vomiting, dysuria, or diarrhea. He does report weight loss about 20 lb but he attributes this to his recent hospitalizations over last few months. Since his admission, his atrial flutter with RVR has been controlled with oral amiodarone but his blood cultures have subsequently come back positive for MRSA bacteremia and a recent T is highly suggestive of mitral valve endocarditis. More concerning is of course that his creatinine / renal function has been fluctuating since his hospitalization as well. Renal consultation was requested due to his acute kidney injury on top of his baseline chronic kidney disease. The patient is well known to me as I have taking care of him during in some of his more recent hospitalizations here at [facility].
--- NOTE | 2022-09-08 18:13 | PDONCCN ---
HPI - Date of Consult Date/Time: 09/08/22 18:13 Requesting Physician: Rhiannon Lomas MD Primary Care Provider: Doris Ingram MD - Consult Narrative Reason for consult: Immune deficiency and anemia Narrative: Naga De Leon is a 82 year old male with history of atrial fibrillation, coronary artery disease, aortic valve replacement and hypertension came into the ER with shortness of breath. Patient had multiple admission to the hospital with various infections including MRSA bacteremia and C diff colitis. He also has infection for sepsis and pyelonephritis. Patient has mild tiredness and fatigue. He denies any bleeding including melena hematochezia. He denies any weight loss. Denies any hot flashes and night sweats. Currently he is being treated for mitral valve endocarditis and receiving antibiotic therapy. His labs showed hemoglobin of 9.4 on admission now down to 7.5. He also has low platelet count and low WBC count. Other labs showed GFR of 36%. Vitamin B12 came back normal and iron studies showed elevated iron saturation with ferritin of more than 2000. Hemoccult stool was negative. Sigmoidoscopy from September 05 showed diverticulosis and internal hemorrhoids. EGD showed hiatal hernia. Review of Systems - Review of Systems All systems reviewed & are unremarkable except as noted in HPI and bel - Neurologic Reports system reviewed and no additional complaints, except as documented, Reports hearing normal, Reports weakness, Denies behavioral changes, Denies confusion [facility] Medical History: Medical History (Last Reviewed 09/07/22 @ 09:59 by Tania Muñiz MD) Anemia Aortic valve stenosis Atrial fibrillation Atrial fibrillation with RVR Occurred during admission May 2022 due to sepsis Basal cell carcinoma Blood loss anemia BPH (benign prostatic hyperplasia) Chronic idiopathic thrombocytopenia Collagenous colitis Resulting in chronic loose stools Coronary artery disease Diastolic dysfunction Echocardiogram 04/2022: EF 70% grade 1 diastolic dysfunction, aortic valve prosthesis with good function, moderate pulmonary hypertension Diastolic heart failure Essential hypertension Gastroesophageal reflux Hyponatremia Hypothyroidism, unspecified Insomnia Kidney stones Latent tuberculosis Treated with INH in 1959 Mild persistent asthma without complication Mixed hyperlipidemia MRSA bacteremia PSVT (paroxysmal supraventricular tachycardia) Thrombocytopenia Surgical History: Surgical History (Last Reviewed 09/07/22 @ 09:59 by Tania Muñiz MD) H/O aortic valve replacement Onset Date: 2013 Porcine valve Hx of CABG Status post bilateral knee replacements Family History: Family History (Last Reviewed 09/07/22 @ 09:59 by Tania Muñiz MD) Mother Family history of kidney disease Family history of Alzheimer's disease Hypertension Breast cancer Father Patient's father is , Onset Age: 60 Family history of coronary artery disease, Onset Age: 60 Acute myocardial infarction - Social History Social History: Social History (Last Reviewed 09/07/22 @ 09:59 by Tania Muñiz MD) Gender Identity: Gender identity (if verbalized by the patient): Male Alcohol Use: Alcohol intake: current Alcohol use details: He reports that he drinks 4 oz of liquor every day. Substance Use: Substance use: never Substance use type: does not use Other substance usage details: 1 cocktail/day when he was well Others: Spiritual care concerns: No Agree to blood products: Yes Smoking Status: Smoking status: Former smoker Tobacco type: cigarettes Tobacco type: pipe Second hand tobacco smoke exposure: No Smoking end date: 06/23/92 Approximate Smoking End Date: 2000 Smoking Pack-years: Smoking packs per day: 4 Smoking cigarettes per day: 80.0 Years smoked: 40 Smoking pack-years: 160.00 Comments:
[2022-09-08 19:08] LABS: Haptoglobin 124 mg/dL (43-212)
[2022-09-08 19:44] LABS: Immunoglobulin A 415 mg/dL (70-400); Immunoglobulin M 103 mg/dL (40-230)
[2022-09-08] MEDS: EPOETIN ALFA-EPBX 20,000 UNITS/ML VIAL 20000 UNITS SUB-Q (20:01)
[2022-09-08] MEDS: ATORVASTATIN 10 MG TABLET PO (20:03)
[2022-09-08] MEDS: TAMSULOSIN HCL 0.4 MG CAPSULE PO (20:03)
[2022-09-08] MEDS: METOPROLOL TARTRATE 50 MG TAB PO (20:03)
[2022-09-08 21:11] LABS: Immunoglobulin G 1412 mg/dL (700-1600)
[2022-09-08] MEDS: IPRATROPIUM BR 0.02% INH SOLN 0.5 MG/2.5 ML VIAL INHALATION (21:27)
[2022-09-08] MEDS: BUDESONIDE RESPULE NEB 0.5 MG/2 ML AMP INHALATION (21:27)
[2022-09-08] MEDS: ZOLPIDEM TARTRATE (*CRX) 5 MG TABLET 10 MG PO (22:27)
[2022-09-09] VITALS (14 sets, daily range): BP systolic 98–104; BP diastolic 56–60; PULSE 59–81; RESP 14–16; TEMP 36.2–36.7; O2SAT 97–98
[2022-09-09] MEDS: LEVOTHYROXINE SODIUM 50 MCG TABLET PO (06:24)
[2022-09-09 07:29] LABS: Basophils Percent Auto 0.5 % (0.2-1.2); Eosinophils Percent Auto 0.8 % (0-4.4); Hematocrit 22.2 % (42.0-52.0); Hemoglobin 7.2 g/dL (14.0-18.0); Immature Granulocyte Absolute 0.06 K/mm3 (0.00-0.031); Immature Granulocyte Percent A 1.6 % (0-0.5); Immature Platelet Fraction Pct 4.7 % (0.9-11.2); Lymphocytes Percent Auto 26.4 % (18.3-44.2); Mean Corpuscular HGB Conc 32.4 g/dl (32-36); Mean Corpuscular Hemoglobin 31.9 pg (26-34); Mean Corpuscular Volume 98.2 fl (80-100); Monocytes Absolute Auto 0.4 K/mm3 (0.1-0.6); Monocytes Percent Auto 11.6 % (2.6-8.5); Neutrophils Absolute Auto 2.2 K/mm3 (1.3-6.7); Neutrophils Percent Auto 59.1 % (45.5-73.1); Platelet Count Result 131 k/mm3 (150-375); Red Blood Count 2.26 M/mm3 (4.6-6.20); Red Cell Distribution Width 19.6 % (11.5-14.5); White Blood Count 3.8 K/mm3 (4.5-10.0)
[2022-09-09 07:45] LABS: Alanine Aminotransferase 29 U/L (6-50); Albumin Level 2.5 g/dL (3.5-5.1); Alkaline Phosphatase 115 U/L (38-126); Anion Gap 5 mmol/L (8-16); Aspartate Amino Transferase 23 U/L (17-59); Bilirubin,Total 0.5 mg/dL (0.2-1.3); Blood Urea Nitrogen 14 mg/dL (9-20); Calcium 7.3 mg/dL (8.4-10.2); Carbon Dioxide 29 mmol/L (22-30); Chloride 95 mmol/L (98-107); Creatine Kinase < 20 U/L (55-170); Estimated CRCL calculation 28 ml/min; Estimated Glomerular Filt Rate 39; Glucose 89 mg/dL (65-110); Potassium 3.2 mmol/L (3.4-5.0); Sodium 129 mmol/L (137-145)
--- NOTE | 2022-09-09 08:06 | PM.IMPN ---
Progress Note: A&P Assessment and Plan (1) MRSA bacteremia: Code(s): R78.81 - Bacteremia; B95.62 - Methicillin resistant Staphylococcus aureus infection as the cause of diseases classified elsewhere Status: Acute Assessment and Plan: YOLIS showed mitral valve endocarditis Will d/c vanc in favor of daptomycin every other day, starting tomorrow, to complete an 8 week course Check CMP/CPKs and consider repeat YOLIS at 6 weeks and consider d/c abx, otherwise, would favor an extended course d/t recurrent MRSA bacteremia and possible underlying immunocompromised state Recurrent bacteremia, just completed long-term course of IV antibiotics with vancomycin on August 01, no source found at that time, thought to be a central catheter that was removed but the culture did not come back viable repeat blood cultures NGTD, PICC placed tomorrow, plan to d/c with [facility] to do every other day daptomycin infusions x 8 weeks with repeat YOLIS in 6 weeks by cardiology (2) Chronic kidney disease: Code(s): N18.9 - Chronic kidney disease, unspecified Status: Acute Assessment and Plan: Worsening, consult nephrology onc gave procrit injection yesterday d/t anemia of chronic disease (3) Chronic diastolic CHF (congestive heart failure): Code(s): I50.32 - Chronic diastolic (congestive) heart failure Status: Acute Assessment and Plan: Appears euvolemic (4) Atrial flutter with rapid ventricular response: Code(s): I48.92 - Unspecified atrial flutter Status: Acute Assessment and Plan: Stable, cont metoprolol (5) Hypothyroidism, unspecified: Code(s): E03.9 - Hypothyroidism, unspecified Status: Acute Assessment and Plan: Stable, check TSH (6) Essential hypertension: Code(s): I10 - Essential (primary) hypertension Status: Acute Assessment and Plan: Stable, requiring midodrine at this point (7) Mixed hyperlipidemia: Code(s): E78.2 - Mixed hyperlipidemia Status: Acute (8) Chronic idiopathic thrombocytopenia: Code(s): D69.3 - Immune thrombocytopenic purpura Status: Acute Assessment and Plan: stable (9) S/P aortic valve replacement with bioprosthetic valve: Code(s): Z95.3 - Presence of xenogenic heart valve Status: Acute Assessment and Plan: stable (10) Hyponatremia: Code(s): E87.1 - Hypo-osmolality and hyponatremia Status: Acute Assessment and Plan: improving, monitor (11) Immunodeficiency: Code(s): D84.9 - Immunodeficiency, unspecified Status: Acute Assessment and Plan: Consult oncology due to 12 month history of recurrent infections in a previously healthy individual, including recurrent C diff, collagenous colitis, several episodes of bacteremia, UTIs, new onset afib, among others--immunodeficiency workup pending, can be done outpatient Plan DVT prophylaxis with Eliquis GI prophylaxis with PPI Code status full code Subjective Date/time seen: 09/09/22 08:06 Interval history: No overnight events noted. No chest pain or shortness of breath. No nausea, vomiting or diarrhea. No fevers or chills. Feeling a little stronger than yesterday, was up and ambulating. Review of Systems Review of Systems: 12 point review of systems was assessed and was negative except as noted in the HPI Exam Narrative: General: No acute distress, alert and oriented per baseline HEENT: Atraumatic, normocephalic, mucous membranes moist CV: Regular rate and rhythm, S1, S2 murmur noted Lungs: Clear to auscultation bilaterally, no rales or crackles noted, no wheezes, good air entry Abdomen: Soft, nontender, nondistended Extremities: Normal to inspection Skin: No rashes noted, no lesions or wounds seen Psych: Euthymic, normal affect Objective Data Vital Signs Vital Signs: Vital Signs - 24 hr 09/08/22 08:39 09/08/22 08:30 09/08/22 13:58 Temperature 9
[2022-09-09] MEDS: IPRATROPIUM BR 0.02% INH SOLN 0.5 MG/2.5 ML VIAL INHALATION (08:18)
[2022-09-09] MEDS: BUDESONIDE RESPULE NEB 0.5 MG/2 ML AMP INHALATION (08:18)
[2022-09-09 08:47] LABS: Complement C3 92 mg/dL (88-165)
[2022-09-09 09:01] LABS: Creatinine Urine 84.6 mg/dL; Total Protein Urine Random 13 mg/dL; Ur Ttl Prot Creatinine Ratio 0.15 mg/mg (0-0.20)
[2022-09-09 09:02] LABS: Sodium Urine Random 29 meq/L
[2022-09-09] MEDS: MIDODRINE HCL 2.5 MG TABLET 5 MG PO ×3 (10:17→18:07)
[2022-09-09] MEDS: AMIODARONE HCL 200 MG TABLET PO ×2 (10:18→20:18)
[2022-09-09] MEDS: FAMOTIDINE 20 MG TABLET PO ×2 (10:18→20:19)
[2022-09-09] MEDS: PANTOPRAZOLE 40 MG TABLET PO (10:18)
[2022-09-09] MEDS: BUMETANIDE 1 MG TABLET PO ×2 (10:18→18:07)
[2022-09-09] MEDS: APIXABAN 2.5 MG TABLET PO ×2 (10:18→20:19)
[2022-09-09 11:24] LABS: Eosinophil Urine None Seen % (None Seen)
[2022-09-09] MEDS: guaiFENesin 12 HR 600 MG TABCR PO ×2 (11:48→23:40)
--- NOTE | 2022-09-09 12:04 | P.PNNP_ITS ---
Progress Note: A&P Assessment and Plan (1) ZORAN (acute kidney injury): Code(s): N17.9 - Acute kidney failure, unspecified Status: Acute Assessment and Plan: * presumably due to infection once again * his creatinine has been noted to fluctuate with infections in the past * hopefully, it will stablize with ongoing current therapy * evaluation: * check renal ultrasound . This is pending. * Urine electrolytes non pre renal. * check urine eosinophils (AIN possible given his multitude of antibiotics over the last few months) * Complements normal * The patient has mitral valve endocarditis and so could have mild ATN. * The infection could be increasing his catabolic state thus increasing the BUN and creatinine. * he has peripheral vascular disease and so could have arterial atheroemboli * follow trend of repeat labs and UOP (2) Stage 3a chronic kidney disease: Code(s): N18.31 - Chronic kidney disease, stage 3a Status: Chronic Assessment and Plan: * baseline creatinine seems to 1.3mg/dl (following his multiple hosptializations) * due to recurrent infections, need for diuretics, and fluctuating hemodynamics (3) MRSA bacteremia: Code(s): R78.81 - Bacteremia; B95.62 - Methicillin resistant Staphylococcus aureus infection as the cause of diseases classified elsewhere Status: Acute Assessment and Plan: * complicated by mitral valve endocarditis (as noted by recent YOLIS) * daptomycin (4) Acute on chronic diastolic CHF (congestive heart failure): Code(s): I50.33 - Acute on chronic diastolic (congestive) heart failure Status: Acute Assessment and Plan: * appears compensated at this time * on oral bumex (5) Atrial flutter with rapid ventricular response: Code(s): I48.92 - Unspecified atrial flutter Status: Acute Assessment and Plan: * on amiodarone * NSR at this time * Cardiology following Subjective Date/time seen: 09/09/22 12:04 Interval history: 09/09/2022 Naga is feeling about the same. he is eating pretty well but still has lost weight. No chest pain or shortness of breath he has small amounts of swelling Review of Systems Cardiovascular: Cardiovascular: Reports no additional cardiovascular complaints Respiratory: Respiratory: Reports no additional respiratory complaints Gastrointestinal: Gastrointestinal: Reports no additional gastrointestinal complaints Genitourinary: Genitourinary: Reports no additional male genitourinary complaints Exam Narrative: WDWN in NAD skin no rash head ncat lungs clear cor reg no rub abd BS+ nontender and soft ext trace edema. Objective Data Vital Signs Vital Signs: Vital Signs - 24 hr 09/08/22 13:58 09/08/22 15:09 09/08/22 15:21 Temperature 96.3 F L Pulse Rate 81 75 75 Respiratory Rate 16 20 20 Blood Pressure 109/61 Pulse Oximetry 97 95 Oxygen Delivery Room Air 09/08/22 16:00 09/08/22 20:02 09/08/22 20:03 Temperature Pulse Rate 72 75 75 Respiratory Rate Blood Pressure Pulse Oximetry Oxygen Delivery 09/08/22 20:00 09/08/22 21:27 09/08/22 21:42 Temperature 97.4 F L Pulse Rate 76 77 R
--- NOTE | 2022-09-09 12:04 | PM.PNNEP ---
Progress Note: A&P Assessment and Plan (1) ZORAN (acute kidney injury): Code(s): N17.9 - Acute kidney failure, unspecified Status: Acute Assessment and Plan: presumably due to infection once again his creatinine has been noted to fluctuate with infections in the past hopefully, it will stablize with ongoing current therapy evaluation: check renal ultrasound . This is pending. Urine electrolytes non pre renal. check urine eosinophils (AIN possible given his multitude of antibiotics over the last few months) Complements normal The patient has mitral valve endocarditis and so could have mild ATN. The infection could be increasing his catabolic state thus increasing the BUN and creatinine. he has peripheral vascular disease and so could have arterial atheroemboli follow trend of repeat labs and UOP (2) Stage 3a chronic kidney disease: Code(s): N18.31 - Chronic kidney disease, stage 3a Status: Chronic Assessment and Plan: baseline creatinine seems to 1.3mg/dl (following his multiple hosptializations) due to recurrent infections, need for diuretics, and fluctuating hemodynamics (3) MRSA bacteremia: Code(s): R78.81 - Bacteremia; B95.62 - Methicillin resistant Staphylococcus aureus infection as the cause of diseases classified elsewhere Status: Acute Assessment and Plan: complicated by mitral valve endocarditis (as noted by recent YOLIS) daptomycin (4) Acute on chronic diastolic CHF (congestive heart failure): Code(s): I50.33 - Acute on chronic diastolic (congestive) heart failure Status: Acute Assessment and Plan: appears compensated at this time on oral bumex (5) Atrial flutter with rapid ventricular response: Code(s): I48.92 - Unspecified atrial flutter Status: Acute Assessment and Plan: on amiodarone NSR at this time Cardiology following Subjective Date/time seen: 09/09/22 12:04 Interval history: 09/09/2022 Naga is feeling about the same. he is eating pretty well but still has lost weight. No chest pain or shortness of breath he has small amounts of swelling Review of Systems Cardiovascular: Cardiovascular: Reports no additional cardiovascular complaints Respiratory: Respiratory: Reports no additional respiratory complaints Gastrointestinal: Gastrointestinal: Reports no additional gastrointestinal complaints Genitourinary: Genitourinary: Reports no additional male genitourinary complaints Exam Narrative: WDWN in NAD skin no rash head ncat lungs clear cor reg no rub abd BS+ nontender and soft ext trace edema. Objective Data Vital Signs Vital Signs: Vital Signs - 24 hr 09/08/22 13:58 09/08/22 15:09 09/08/22 15:21 Temperature 96.3 F L Pulse Rate 81 75 75 Respiratory Rate 16 20 20 Blood Pressure 109/61 Pulse Oximetry 97 95 Oxygen Delivery Room Air 09/08/22 16:00 09/08/22 20:02 09/08/22 20:03 Temperature Pulse Rate 72 75 75 Respiratory Rate Blood Pressure Pulse Oximetry Oxygen Delivery 09/08/22 20:00 09/08/22 21:27 09/08/22 21:42 Temperature 97.4 F L Pulse Rate 76 77 Respiratory Rate 18 14 Blood Pressure 107/52 L Pulse Oximetry 97 Oxygen Delivery Room Air 09/08/22 21:40 09/08/22 21:27 09/08/22 20:00 Temperature Pulse Rate 79 78 Respiratory Rate 18 Blood Pressure Pulse Oximetry 97 Oxygen Delivery Room Air 09/09/22 00:00 09/09/22 04:00 09/09/22 05:42 Temperature 97.4 F L Pulse Rate 59 L 67 67 Respiratory Rate 14 Blood Pressure 98/60 L Pulse Oximetry 97 Oxygen Delivery 09/09/22 08:19 09/09/22 08:49 09/09/22 10:18 Temperature Pulse Rate 68 66 66 Respiratory Rate 16 16 Blood Pressure Pulse Oximetry Oxygen Delivery 09/09/22 10:00 Temperature Pulse Rate Respiratory Rate Blood Pressure Pulse Oximetry Oxygen Delivery Room Air In
[2022-09-09] MEDS: ACETAMINOPHEN 325 MG TABLET 650 MG PO (18:20)
[2022-09-09] MEDS: ATORVASTATIN 10 MG TABLET PO (20:19)
[2022-09-09] MEDS: METOPROLOL TARTRATE 50 MG TAB PO (20:19)
[2022-09-09] MEDS: TAMSULOSIN HCL 0.4 MG CAPSULE PO (20:19)
[2022-09-09] MEDS: ZOLPIDEM TARTRATE (*CRX) 5 MG TABLET 10 MG PO (23:09)
[2022-09-10] VITALS (26 sets, daily range): BP systolic 88–110; BP diastolic 48–62; PULSE 60–86; RESP 12–24; TEMP 35.9–36.6; O2SAT 96–100
[2022-09-10] MEDS: LEVOTHYROXINE SODIUM 50 MCG TABLET PO (06:23)
[2022-09-10 07:19] LABS: Basophils Percent Auto 0.7 % (0.2-1.2); Hematocrit 21.1 % (42.0-52.0); Immature Granulocyte Absolute 0.07 K/mm3 (0.00-0.031); Immature Granulocyte Percent A 2.3 % (0-0.5); Lymphocytes Absolute Auto 0.92 K/mm3 (0.9-3.2); Lymphocytes Percent Auto 30.8 % (18.3-44.2); Mean Corpuscular HGB Conc 32.7 g/dl (32-36); Mean Corpuscular Hemoglobin 31.9 pg (26-34); Mean Corpuscular Volume 97.7 fl (80-100); Mean Platelet Volume 10.2 fl (7.4-10.4); Monocytes Absolute Auto 0.3 K/mm3 (0.1-0.6); Monocytes Percent Auto 10.4 % (2.6-8.5); Neutrophils Absolute Auto 1.6 K/mm3 (1.3-6.7); Neutrophils Percent Auto 54.8 % (45.5-73.1); Platelet Count Result 115 k/mm3 (150-375); Red Blood Count 2.16 M/mm3 (4.6-6.20); Red Cell Distribution Width 19.7 % (11.5-14.5)
[2022-09-10 07:22] LABS: Alanine Aminotransferase 24 U/L (6-50); Albumin Level 2.5 g/dL (3.5-5.1); Alkaline Phosphatase 109 U/L (38-126); Anion Gap 1 mmol/L (8-16); Aspartate Amino Transferase 20 U/L (17-59); Bilirubin,Total 0.4 mg/dL (0.2-1.3); Blood Urea Nitrogen 15 mg/dL (9-20); Calcium 7.2 mg/dL (8.4-10.2); Carbon Dioxide 30 mmol/L (22-30); Chloride 95 mmol/L (98-107); Creatine Kinase < 20 U/L (55-170); Estimated CRCL calculation 28 ml/min; Estimated Glomerular Filt Rate 39; Glucose 88 mg/dL (65-110); Potassium 3.1 mmol/L (3.4-5.0); Sodium 126 mmol/L (137-145)
[2022-09-10 07:29] LABS: Hemoglobin 6.9 g/dL (14.0-18.0)
[2022-09-10] MEDS: BUDESONIDE RESPULE NEB 0.5 MG/2 ML AMP INHALATION ×2 (08:20→21:15)
[2022-09-10] MEDS: IPRATROPIUM BR 0.02% INH SOLN 0.5 MG/2.5 ML VIAL INHALATION ×2 (08:20→21:15)
[2022-09-10] MEDS: MIDODRINE HCL 2.5 MG TABLET 5 MG PO ×3 (08:48→16:59)
[2022-09-10] MEDS: AMIODARONE HCL 200 MG TABLET PO ×2 (08:50→20:39)
[2022-09-10] MEDS: FAMOTIDINE 20 MG TABLET PO ×2 (08:50→20:40)
[2022-09-10] MEDS: PANTOPRAZOLE 40 MG TABLET PO (08:50)
[2022-09-10] MEDS: BUMETANIDE 1 MG TABLET PO ×2 (08:52→16:59)
[2022-09-10] MEDS: APIXABAN 2.5 MG TABLET PO ×2 (08:52→20:40)
[2022-09-10] MEDS: ACETAMINOPHEN 325 MG TABLET 650 MG PO (08:59)
--- NOTE | 2022-09-10 10:14 | P.PNNP_ITS ---
Progress Note: A&P Assessment and Plan (1) ZORAN (acute kidney injury): Code(s): N17.9 - Acute kidney failure, unspecified Status: Acute Assessment and Plan: * presumably due to infection once again * his creatinine has been noted to fluctuate with infections in the past * evaluation: * check renal ultrasound . This is pending. * Urine electrolytes non pre renal. * check urine eosinophils (AIN possible given his multitude of antibiotics over the last few months) * Complements normal * The patient has mitral valve endocarditis and so could have mild ATN. * The infection could be increasing his catabolic state thus increasing the BUN and creatinine. * he has peripheral vascular disease and so could have arterial atheroemboli * his creatinine is stable. * He is on Bumetanide. he is not short of breath. Swelling is minimal. Will check a chest x-ray. Consider weaning this question * Check a chest x-ray and a creatinine tomorrow. (2) Stage 3a chronic kidney disease: Code(s): N18.31 - Chronic kidney disease, stage 3a Status: Chronic Assessment and Plan: * baseline creatinine seems to 1.3mg/dl (following his multiple hosptializations) * due to recurrent infections, need for diuretics, and fluctuating hemodynamics (3) MRSA bacteremia: Code(s): R78.81 - Bacteremia; B95.62 - Methicillin resistant Staphylococcus aureus infection as the cause of diseases classified elsewhere Status: Acute Assessment and Plan: * complicated by mitral valve endocarditis (as noted by recent YOLIS) * He is on daptomycin (4) Acute on chronic diastolic CHF (congestive heart failure): Code(s): I50.33 - Acute on chronic diastolic (congestive) heart failure Status: Acute Assessment and Plan: * appears compensated at this time * on oral bumex (5) Atrial flutter with rapid ventricular response: Code(s): I48.92 - Unspecified atrial flutter Status: Acute Assessment and Plan: * on amiodarone * NSR at this time * Cardiology following (6) Hyponatremia: Code(s): E87.1 - Hypo-osmolality and hyponatremia Status: Chronic Assessment and Plan: the patient's sodium level is dropping. It has done this in the past. Will fluid restrict. Subjective Date/time seen: 09/10/22 10:14 Interval history: 09/09/2022 Naga is feeling about the same. he is eating pretty well but still has lost weight. No chest pain or shortness of breath he has small amounts of swelling 09/10/2022 Naga is feeling about the same today. Has no chest pain or shortness of breath he is eating pretty well. Belly is doing okay. Urinating fine Exam Narrative: WDWN in NAD skin no rash head ncat lungs clear bilaterally cor reg no rub or gallop abd BS+ nontender and soft ext trace edema. Objective Data Vital Signs Vital Signs: Vital Signs - 24 hr 09/09/22 10:18 09/09/22 14:30 09/09/22 12:00 Temperature 97.2 F L Pulse Rate 66 73 75 Respiratory Rate 16 Blood Pressure 100/58 L Pulse Oximetry 98 Oxygen Delivery 09/09/22 16:00 09/09/22 20:18 09/09/22 20:19 Temperature Pulse Rate 72 81 81 Respiratory Rate Blood Pressure Pulse Oximetry Oxygen D
--- NOTE | 2022-09-10 10:14 | PM.PNNEP ---
Progress Note: A&P Assessment and Plan (1) ZORAN (acute kidney injury): Code(s): N17.9 - Acute kidney failure, unspecified Status: Acute Assessment and Plan: presumably due to infection once again his creatinine has been noted to fluctuate with infections in the past evaluation: check renal ultrasound . This is pending. Urine electrolytes non pre renal. check urine eosinophils (AIN possible given his multitude of antibiotics over the last few months) Complements normal The patient has mitral valve endocarditis and so could have mild ATN. The infection could be increasing his catabolic state thus increasing the BUN and creatinine. he has peripheral vascular disease and so could have arterial atheroemboli his creatinine is stable. He is on Bumetanide. he is not short of breath. Swelling is minimal. Will check a chest x-ray. Consider weaning this question Check a chest x-ray and a creatinine tomorrow. (2) Stage 3a chronic kidney disease: Code(s): N18.31 - Chronic kidney disease, stage 3a Status: Chronic Assessment and Plan: baseline creatinine seems to 1.3mg/dl (following his multiple hosptializations) due to recurrent infections, need for diuretics, and fluctuating hemodynamics (3) MRSA bacteremia: Code(s): R78.81 - Bacteremia; B95.62 - Methicillin resistant Staphylococcus aureus infection as the cause of diseases classified elsewhere Status: Acute Assessment and Plan: complicated by mitral valve endocarditis (as noted by recent YOLIS) He is on daptomycin (4) Acute on chronic diastolic CHF (congestive heart failure): Code(s): I50.33 - Acute on chronic diastolic (congestive) heart failure Status: Acute Assessment and Plan: appears compensated at this time on oral bumex (5) Atrial flutter with rapid ventricular response: Code(s): I48.92 - Unspecified atrial flutter Status: Acute Assessment and Plan: on amiodarone NSR at this time Cardiology following (6) Hyponatremia: Code(s): E87.1 - Hypo-osmolality and hyponatremia Status: Chronic Assessment and Plan: the patient's sodium level is dropping. It has done this in the past. Will fluid restrict. Subjective Date/time seen: 09/10/22 10:14 Interval history: 09/09/2022 Naga is feeling about the same. he is eating pretty well but still has lost weight. No chest pain or shortness of breath he has small amounts of swelling 09/10/2022 Naga is feeling about the same today. Has no chest pain or shortness of breath he is eating pretty well. Bellherb is doing okay. Urinating fine Exam Narrative: WDWN in NAD skin no rash head ncat lungs clear bilaterally cor reg no rub or gallop abd BS+ nontender and soft ext trace edema. Objective Data Vital Signs Vital Signs: Vital Signs - 24 hr 09/09/22 10:18 09/09/22 14:30 09/09/22 12:00 Temperature 97.2 F L Pulse Rate 66 73 75 Respiratory Rate 16 Blood Pressure 100/58 L Pulse Oximetry 98 Oxygen Delivery 09/09/22 16:00 09/09/22 20:18 09/09/22 20:19 Temperature Pulse Rate 72 81 81 Respiratory Rate Blood Pressure Pulse Oximetry Oxygen Delivery 09/09/22 20:00 09/09/22 21:53 09/09/22 20:00 Temperature 98.0 F Pulse Rate 78 79 Respiratory Rate 16 Blood Pressure 104/56 L Pulse Oximetry 97 Oxygen Delivery Room Air 09/10/22 00:00 09/10/22 04:00 09/10/22 07:41 Temperature Pulse Rate 60 64 Respiratory Rate Blood Pressure 110/58 L Pulse Oximetry Oxygen Delivery 09/10/22 06:00 09/10/22 08:20 09/10/22 08:23 Temperature 97.7 F Pulse Rate 66 67 76 Respiratory Rate 16 16 16 Blood Pressure Pulse Oximetry 97 96 Oxygen Delivery Room Air 09/10/22 08:28 09/10/22 08:50 Temperature Pulse Rate 72 72 Respiratory Rate 16 Blood Pressure Pulse Oximetr
[2022-09-10] MEDS: BENZONATATE 100 MG CAPSULE 200 MG PO ×2 (12:30→16:59)
[2022-09-10] MEDS: DAPTOmycin 600 MG in SODIUM CHLORIDE 0.9% IV 50 ML 100 MG IVPB (14:20)
[2022-09-10] MEDS: SODIUM CHLORIDE 0.9% IV 250 ML 30 ML IV CONT (15:25)
[2022-09-10] MEDS: TUBING, BLOOD PLUM PUMP TUBING 1 EACH XX (15:28)
--- NOTE | 2022-09-10 17:28 | PM.IMPN ---
Progress Note: A&P Assessment and Plan (1) MRSA bacteremia: Code(s): R78.81 - Bacteremia; B95.62 - Methicillin resistant Staphylococcus aureus infection as the cause of diseases classified elsewhere Status: Acute Assessment and Plan: YOLIS showed mitral valve endocarditis Will d/c vanc in favor of daptomycin every other day, starting tomorrow, to complete an 8 week course Check CMP/CPKs and consider repeat YOLIS at 6 weeks and consider d/c abx, otherwise, would favor an extended course d/t recurrent MRSA bacteremia and possible underlying immunocompromised state Recurrent bacteremia, just completed long-term course of IV antibiotics with vancomycin on August 01, no source found at that time, thought to be a central catheter that was removed but the culture did not come back viable repeat blood cultures NGTD, PICC placed tomorrow, plan to d/c with [facility] to do every other day daptomycin infusions x 8 weeks with repeat YOLIS in 6 weeks by cardiology (2) Chronic kidney disease: Code(s): N18.9 - Chronic kidney disease, unspecified Status: Acute Assessment and Plan: Worsening from baseline, appreciate nephrology consultation Stable onc gave procrit injection yesterday d/t anemia of chronic disease (3) Chronic diastolic CHF (congestive heart failure): Code(s): I50.32 - Chronic diastolic (congestive) heart failure Status: Acute Assessment and Plan: Appears euvolemic (4) Atrial flutter with rapid ventricular response: Code(s): I48.92 - Unspecified atrial flutter Status: Acute Assessment and Plan: Stable, cont metoprolol (5) Hypothyroidism, unspecified: Code(s): E03.9 - Hypothyroidism, unspecified Status: Acute Assessment and Plan: TSH is stable, continue home meds (6) Chronic idiopathic thrombocytopenia: Code(s): D69.3 - Immune thrombocytopenic purpura Status: Acute Assessment and Plan: stable (7) S/P aortic valve replacement with bioprosthetic valve: Code(s): Z95.3 - Presence of xenogenic heart valve Status: Acute Assessment and Plan: stable (8) Hyponatremia: Code(s): E87.1 - Hypo-osmolality and hyponatremia Status: Acute Assessment and Plan: improving, monitor (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 No chest pain or shortness of breath. No nausea, vomiting or diarrhea. No fevers or chills. Patient states he feels about the same as yesterday which is quite good. Review of Systems Review of Systems: 12 point review of systems was assessed and was negative except as noted in the HPI Exam Narrative: General: No acute distress, alert and oriented per baseline HEENT: Atraumatic, normocephalic, mucous membranes moist CV: Regular rate and rhythm, S1, S2 murmur noted Lungs: Clear to auscultation bilaterally, no rales or crackles noted, no wheezes, good air entry Abdomen: Soft, nontender, nondistended Extremities: Normal to inspection Skin: No rashes noted, no lesions or wounds seen Psych: Euthymic, normal affect Objective Data Vital Signs Vital Signs: Vital Signs - 24 hr 09/09/22 20:18 09/09/22 20:19 09/09/22 20:00 Temperature Pulse Rate 81 81 Respiratory Rate Blood Pressure Pulse Oximetry Oxygen Delivery Room Air 09/09/22 21:53 09/09/22 20:00 09/10/22 00:00 Temperature 98.0 F Pulse Rate 78 79 60 Respiratory
[2022-09-10] MEDS: ATORVASTATIN 10 MG TABLET PO (20:40)
[2022-09-10] MEDS: METOPROLOL TARTRATE 50 MG TAB PO (20:40)
[2022-09-10] MEDS: TAMSULOSIN HCL 0.4 MG CAPSULE PO (20:40)
[2022-09-10] MEDS: guaiFENesin 12 HR 600 MG TABCR PO (22:37)
[2022-09-10] MEDS: ZOLPIDEM TARTRATE (*CRX) 5 MG TABLET 10 MG PO (22:37)
[2022-09-11] VITALS (15 sets, daily range): BP systolic 108–118; BP diastolic 67–70; PULSE 60–89; RESP 16–22; TEMP 36.2–37; O2SAT 94–99
[2022-09-11 06:55] LABS: Alanine Aminotransferase 23 U/L (6-50); Albumin Level 2.5 g/dL (3.5-5.1); Alkaline Phosphatase 116 U/L (38-126); Anion Gap 3 mmol/L (8-16); Aspartate Amino Transferase 23 U/L (17-59); Bilirubin,Total 0.7 mg/dL (0.2-1.3); Blood Urea Nitrogen 15 mg/dL (9-20); Calcium 7.5 mg/dL (8.4-10.2); Carbon Dioxide 28 mmol/L (22-30); Chloride 96 mmol/L (98-107); Estimated CRCL calculation 26 ml/min; Estimated Glomerular Filt Rate 36; Glucose 85 mg/dL (65-110); Phosphorus 3.8 mg/dL (2.5-4.5); Potassium 3.3 mmol/L (3.4-5.0); Sodium 127 mmol/L (137-145)
[2022-09-11 06:57] LABS: Basophils Percent Auto 0.8 % (0.2-1.2); Eosinophils Absolute Auto 0.1 K/mm3 (0-0.3); Hematocrit 28.7 % (42.0-52.0); Hemoglobin 9.6 g/dL (14.0-18.0); Immature Granulocyte Absolute 0.09 K/mm3 (0.00-0.031); Immature Granulocyte Percent A 1.8 % (0-0.5); Immature Platelet Fraction Pct 4.9 % (0.9-11.2); Lymphocytes Absolute Auto 1.23 K/mm3 (0.9-3.2); Lymphocytes Percent Auto 24.3 % (18.3-44.2); Mean Corpuscular HGB Conc 33.4 g/dl (32-36); Mean Corpuscular Volume 92.6 fl (80-100); Mean Platelet Volume 10.2 fl (7.4-10.4); Monocytes Absolute Auto 0.6 K/mm3 (0.1-0.6); Monocytes Percent Auto 11.3 % (2.6-8.5); Neutrophils Absolute Auto 3.1 K/mm3 (1.3-6.7); Neutrophils Percent Auto 60.8 % (45.5-73.1); Platelet Count Result 144 k/mm3 (150-375); Red Cell Distribution Width 20.8 % (11.5-14.5); White Blood Count 5.1 K/mm3 (4.5-10.0)
[2022-09-11] MEDS: LEVOTHYROXINE SODIUM 50 MCG TABLET PO (07:01)
[2022-09-11] MEDS: BUDESONIDE RESPULE NEB 0.5 MG/2 ML AMP INHALATION (08:15)
[2022-09-11] MEDS: IPRATROPIUM BR 0.02% INH SOLN 0.5 MG/2.5 ML VIAL INHALATION (08:15)
[2022-09-11] MEDS: BENZONATATE 100 MG CAPSULE 200 MG PO ×3 (09:20→18:07)
[2022-09-11] MEDS: BUMETANIDE 1 MG TABLET PO ×2 (09:21→18:03)
[2022-09-11] MEDS: FAMOTIDINE 20 MG TABLET PO ×2 (09:21→20:59)
[2022-09-11] MEDS: APIXABAN 2.5 MG TABLET PO (09:21)
[2022-09-11] MEDS: MIDODRINE HCL 2.5 MG TABLET 5 MG PO ×3 (09:21→18:02)
[2022-09-11] MEDS: AMIODARONE HCL 200 MG TABLET PO ×2 (09:21→21:00)
[2022-09-11] MEDS: ACETAMINOPHEN 325 MG TABLET 650 MG PO (09:26)
[2022-09-11] MEDS: PANTOPRAZOLE 40 MG TABLET PO (09:26)
--- NOTE | 2022-09-11 11:36 | PCNFU ---
Nutrition Follow-Up Complete: Increased Protein needs as related to wounds as evidenced by Deep Tissue Pressure Ulcers reported. Goal:Adequate Intake of at least 75% of meals/supplements. pt is meeting goal. Continue with same goal. Pt current nutrition is heart healthy, 1400ml fluid restriction. Nutrition recommendation: Resume Ensure pudding, nutritional ice cream Last recorded weight is 79.4 kg - stable. Bowel Motility: +BM 09/09 Labs Reviewed: Hgb:9.6, HCT:28.7, Alb:2.5, Na:127, K:3.3, Cr:1.8 Meds Noted: eliquis, bumex, lovenox, zofran Skin: DTPI to sacrum Additional Notes: Pt continues on a heart healthy diet, intake improved to 50-100% of meals. Pt was on Ensure pudding and magic cups for additional kcals and protein, no orders at this time. Will resume those orders. RD will montior every 7 days.
--- NOTE | 2022-09-11 11:49 | P.PNNP_ITS ---
Progress Note: A&P Assessment and Plan (1) ZORAN (acute kidney injury): Code(s): N17.9 - Acute kidney failure, unspecified Status: Acute Assessment and Plan: * presumably due to infection once again * his creatinine has been noted to fluctuate with infections in the past * has mitral valve endocarditis and so could have mild ATN. * infection could be increasing his catabolic state thus increasing the BUN and creatinine. * he has peripheral vascular disease and so could have arterial atheroemboli * his creatinine is stable. * continue supportive therapy (2) Stage 3a chronic kidney disease: Code(s): N18.31 - Chronic kidney disease, stage 3a Status: Chronic Assessment and Plan: * baseline creatinine seems to 1.3mg/dl (following his multiple hosptializations) * due to recurrent infections, need for diuretics, and fluctuating hemodynamics (3) MRSA bacteremia: Code(s): R78.81 - Bacteremia; B95.62 - Methicillin resistant Staphylococcus aureus infection as the cause of diseases classified elsewhere Status: Acute Assessment and Plan: * complicated by mitral valve endocarditis (as noted by recent YOLIS) * on antibiotics (4) Acute on chronic diastolic CHF (congestive heart failure): Code(s): I50.33 - Acute on chronic diastolic (congestive) heart failure Status: Acute Assessment and Plan: * appears compensated at this time * on oral bumex (5) Atrial flutter with rapid ventricular response: Code(s): I48.92 - Unspecified atrial flutter Status: Acute Assessment and Plan: * on amiodarone * NSR at this time * Cardiology following (6) Hyponatremia: Code(s): E87.1 - Hypo-osmolality and hyponatremia Status: Chronic Assessment and Plan: * he has done this in the past * on fluid restriction Will continue to follow. Subjective Date/time seen: 09/11/22 11:49 Chart reviewed -- assuming care from Dr. Lozano; renal function appears to be holding relatively stable (but not back to baseline); reasonably urine output and volume status seems stable. Exam Narrative: General: elderly male in NAD Heart: normal S1 and S2; no rub Lungs: clear to auscultation Abdomen: soft, nontender, nondistended, positive bowel sounds Extremities: no cyanosis or clubbing; trace edema Skin: warm and dry Objective Data Vital Signs Vital Signs: Vital Signs Temp Pulse Resp BP Pulse Ox O2 Del Method 09/11/22 08:15 Room Air 09/11/22 09:21 80 09/11/22 08:30 86 16 09/11/22 08:17 94 Room Air 09/11/22 08:15 89 16 09/11/22 06:00 97.6 F 72 22 H 108/67 97 09/11/22 04:00 70 09/11/22 00:00 60 09/10/22 20:00 Room Air 09/10/22 20:00 81 09/11/22 00:00 97.2 F L 62 18 110/70 97 09/10/22 23:00 97.3 F L 67 22 H 98/48 L 97 09/10/22 22:00 97.0 F L 86 24 H 98/56 L 99 09/10/22 21:19 96 Room Air 09/10/22 21:18 79 18 09/10/22 20:53 97.0 F L 84 24 H 98/56 L 98 09/10/22 20:40 79 09/10/22 20:39 78 09/10/22 20:32 97.6 F 79 12 106/62 98 09/10/22 18:55 97.7 F 80 14 90/56 L 98 09/10/22 16:00 71 09/10/22 12:00 79
--- NOTE | 2022-09-11 11:49 | PM.PNNEP ---
Progress Note: A&P Assessment and Plan (1) ZORAN (acute kidney injury): Code(s): N17.9 - Acute kidney failure, unspecified Status: Acute Assessment and Plan: presumably due to infection once again his creatinine has been noted to fluctuate with infections in the past has mitral valve endocarditis and so could have mild ATN. infection could be increasing his catabolic state thus increasing the BUN and creatinine. he has peripheral vascular disease and so could have arterial atheroemboli his creatinine is stable. continue supportive therapy (2) Stage 3a chronic kidney disease: Code(s): N18.31 - Chronic kidney disease, stage 3a Status: Chronic Assessment and Plan: baseline creatinine seems to 1.3mg/dl (following his multiple hosptializations) due to recurrent infections, need for diuretics, and fluctuating hemodynamics (3) MRSA bacteremia: Code(s): R78.81 - Bacteremia; B95.62 - Methicillin resistant Staphylococcus aureus infection as the cause of diseases classified elsewhere Status: Acute Assessment and Plan: complicated by mitral valve endocarditis (as noted by recent YOLIS) on antibiotics (4) Acute on chronic diastolic CHF (congestive heart failure): Code(s): I50.33 - Acute on chronic diastolic (congestive) heart failure Status: Acute Assessment and Plan: appears compensated at this time on oral bumex (5) Atrial flutter with rapid ventricular response: Code(s): I48.92 - Unspecified atrial flutter Status: Acute Assessment and Plan: on amiodarone NSR at this time Cardiology following (6) Hyponatremia: Code(s): E87.1 - Hypo-osmolality and hyponatremia Status: Chronic Assessment and Plan: he has done this in the past on fluid restriction Will continue to follow. Subjective Date/time seen: 09/11/22 11:49 Chart reviewed -- assuming care from Dr. Lozano; renal function appears to be holding relatively stable (but not back to baseline); reasonably urine output and volume status seems stable. Exam Narrative: General: elderly male in NAD Heart: normal S1 and S2; no rub Lungs: clear to auscultation Abdomen: soft, nontender, nondistended, positive bowel sounds Extremities: no cyanosis or clubbing; trace edema Skin: warm and dry Objective Data Vital Signs Vital Signs: Vital Signs Temp Pulse Resp BP Pulse Ox O2 Del Method 09/11/22 08:15 Room Air 09/11/22 09:21 80 09/11/22 08:30 86 16 09/11/22 08:17 94 Room Air 09/11/22 08:15 89 16 09/11/22 06:00 97.6 F 72 22 H 108/67 97 09/11/22 04:00 70 09/11/22 00:00 60 09/10/22 20:00 Room Air 09/10/22 20:00 81 09/11/22 00:00 97.2 F L 62 18 110/70 97 09/10/22 23:00 97.3 F L 67 22 H 98/48 L 97 09/10/22 22:00 97.0 F L 86 24 H 98/56 L 99 09/10/22 21:19 96 Room Air 09/10/22 21:18 79 18 09/10/22 20:53 97.0 F L 84 24 H 98/56 L 98 09/10/22 20:40 79 09/10/22 20:39 78 09/10/22 20:32 97.6 F 79 12 106/62 98 09/10/22 18:55 97.7 F 80 14 90/56 L 98 09/10/22 16:00 71 09/10/22 12:00 79 09/10/22 17:55 97.8 F 79 14 98/60 L 99 09/10/22 14:00 96.6 F L 75 20 99/60 L 100 09/10/22 16:55 97.7 F 70 13 94/52 L 99 09/10/22 15:55 97.7 F 71 14 90/50 L 99 09/10/22 15:55 97.7 F 71 14 90/50 L 99 09/10/22 15:40 97.6 F 72 14 88/50 L 99 Intake/Output Intake/Output: Intake & Output 09/08/22 09/09/22 09/10/22 09/11/22 23:59 23:59 23:59 23:59 Intake Total 1230 1610 1420 715 Output Total 850 1500 150 150 Balance 727 897 1352 565 Meds/Results Medications: Active Medications Generic Name Dose Route Start Last Admin Trade Name Freq PRN Reason Stop Dose Admin Acetaminophen 650 mg 08/31/22 22:35 09/11/22 09:26 Acetaminophen 325 Mg Tablet PO
--- NOTE | 2022-09-11 14:51 | PM.CNGS ---
Assessment and Plan Assessment and plan (1) MRSA bacteremia: Code(s): R78.81 - Bacteremia; B95.62 - Methicillin resistant Staphylococcus aureus infection as the cause of diseases classified elsewhere <Rosina Schaeffer [employer]GER - Last Filed: 09/11/22 15:30> Status: Acute <Rosina Schaeffer [employer] ME[employer] MANAGER - Last Filed: 09/11/22 15:30> Assessment and Plan: MRSA bacteremia with YOLIS showed abnormalities involving the mitral valve suggesting possible mitral valve endocarditis, which he is currently being treated with IV Daptomycin. Hospitalist planning for an 8-week course of IV antibiotics and requested that we place a tunneled central venous access catheter for cell changer IV antibiotics. He is currently receiving his antibiotics through peripheral IV access and does not require emergent surgical intervention. I have discussed the patient's case with Dr. Holt, who recommends to hold his Eliquis and await negative blood cultures prior to proceeding with surgery, which he has the most recent set of blood cultures from 09/07/22 showing no growth to date on preliminary results. He would recommend proceeding with Port-a-cath placement rather than having a Sands catheter due to his multiple recurrent infections. Description of the procedure, risks, benefits, alternatives, and expected outcomes were discussed with the patient. He agrees to proceed. I will place his Eliquis on hold for now and we will plan timing of surgery accordingly once his blood cultures are negative. <Rosina AbrahamALEAH mcgovern - Last Filed: 09/11/22 15:30> (2) Acute on chronic anemia: Code(s): D64.9 - Anemia, unspecified <Rosina AbrahamALEAH mcgovern - Last Filed: 09/11/22 15:30> Status: Acute <Rosina Abrahamshaniqua [employer] MA[employer]GER - Last Filed: 09/11/22 15:30> Assessment and Plan: Hgb 6.9 yesterday and received 2 units PRBCs with hgb up to 9.6 today. Hematology and GI following. He had a flexible sigmoidoscopy on 09/05/22 that showed diverticulosis without bleeding and internal hemorrhoids that were not actively bleeding. <Rosina YuanShawn SenALEAH lira - Last Filed: 09/11/22 15:30> (3) Atrial flutter with rapid ventricular response: Code(s): I48.92 - Unspecified atrial flutter <Rosina BShawn Schaeffer, [employer] MANAGER - Last Filed: 09/11/22 15:30> Status: Acute <Rosina BShawn Schaeffer, [employer] MANAGER - Last Filed: 09/11/22 15:30> (4) Chronic anticoagulation: Code(s): Z79.01 - buffing wheel former automatic (current) use of anticoagulants <Rosina BShawn Schaeffer, [employer] MANAGER - Last Filed: 09/11/22 15:30> Status: Acute <Rosina B. Wasmutshaniqua, [employer] ME[employer] MANAGER - Last Filed: 09/11/22 15:30> Assessment and Plan: Will put John on hold for surgery. <Rosina BShawn Schaeffer [employer] ME[employer] MANAGER - Last Filed: 09/11/22 15:30> (5) Thrombocytopenia: Code(s): D69.6 - Thrombocytopenia, unspecified <Rosina BShawn Schaeffer, [employer] ME[employer] MANAGER - Last Filed: 09/11/22 15:30> Status: Acute <Rosina B. Maksim, [employer] ME[employer] MANAGER - Last Filed: 09/11/22 15:30> Assessment and Plan: Platelets 144,000 this morning. <Rosina BShawn Abrahamshaniqua, [employer] ME[employer] MANAGER - Last Filed: 09/11/22 15:30> (6) Diastolic heart failure: Code(s): I50.30 - Unspecified diastolic (congestive) heart failure <Rosina BShawn Schaeffer, [employer] ME[employer] MANAGER - Last Filed: 09/11/22 15:30> Status: Acute <Rosina B. Senmutshaniqua, [employer]ICE ME[employer] MANAGER - Last Filed: 09/11/22 15:30> (7) ZORAN (acute kidney injury): Code(s): N17.9 - Acute kidney failure, unspecified <Rosina BShawn Abrahamshaniqua, [employer] ME[employer] MANAGER - Last Filed: 09/11/22 15:30> Status: Acute <Rosina B. Senmutshaniqua, [employer] SERVICE ME[employer] MANAGER - Last Filed: 09/11/22 15:30> Assessment and Plan: Acute on chronic renal failure. Nephrology following. His renal function is apparently the reason for deferring PICC line placement. <Rosina BShawn Abrahamshaniqua [employer] ME[employer] MANAGER - Last Filed: 09/11/22 15:30> (8) Stage 3a chronic kidney disease: Code(s): N18.31 - Chronic kidney disease, stage 3a <ALEAH Alejandra - Last Filed: 09/11/22 15:30> Status: Chronic <ALEAH Alejandra - Last Filed: 01
--- NOTE | 2022-09-11 15:27 | PM.IMPN ---
Progress Note: A&P Assessment and Plan (1) MRSA bacteremia: Code(s): R78.81 - Bacteremia; B95.62 - Methicillin resistant Staphylococcus aureus infection as the cause of diseases classified elsewhere Status: Acute Assessment and Plan: YOLIS showed mitral valve endocarditis Will d/c vanc in favor of daptomycin every other day, starting tomorrow, to complete an 8 week course Check CMP/CPKs and consider repeat YOLIS at 6 weeks and consider d/c abx, otherwise, would favor an extended course d/t recurrent MRSA bacteremia and possible underlying immunocompromised state Recurrent bacteremia, just completed long-term course of IV antibiotics with vancomycin on August 01, no source found at that time, thought to be a central catheter that was removed but the culture did not come back viable repeat blood cultures NGTD, plan to d/c with [facility] to do every other day daptomycin infusions x 8 weeks with repeat YOLIS in 6 weeks by cardiology Tunneled catheter to be placed per general surgery, consult pending Patient unable to tolerate PICC line per Nephrology due to renal insufficiency (2) Chronic kidney disease: Code(s): N18.9 - Chronic kidney disease, unspecified Status: Acute Assessment and Plan: Worsening from baseline, appreciate nephrology consultation Stable onc gave procrit injection yesterday d/t anemia of chronic disease (3) Chronic diastolic CHF (congestive heart failure): Code(s): I50.32 - Chronic diastolic (congestive) heart failure Status: Acute Assessment and Plan: Appears euvolemic (4) Atrial flutter with rapid ventricular response: Code(s): I48.92 - Unspecified atrial flutter Status: Acute Assessment and Plan: Stable, cont metoprolol (5) Hypothyroidism, unspecified: Code(s): E03.9 - Hypothyroidism, unspecified Status: Acute Assessment and Plan: TSH is stable, continue home meds (6) Chronic idiopathic thrombocytopenia: Code(s): D69.3 - Immune thrombocytopenic purpura Status: Acute Assessment and Plan: stable (7) S/P aortic valve replacement with bioprosthetic valve: Code(s): Z95.3 - Presence of xenogenic heart valve Status: Acute Assessment and Plan: stable (8) Hyponatremia: Code(s): E87.1 - Hypo-osmolality and hyponatremia Status: Acute Assessment and Plan: improving, monitor (9) Immunodeficiency: Code(s): D84.9 - Immunodeficiency, unspecified Status: Acute Assessment and Plan: Consult oncology due to 12 month history of recurrent infections in a previously healthy individual, including recurrent C diff, collagenous colitis, several episodes of bacteremia, UTIs, new onset afib, among others--immunodeficiency workup pending, can be done outpatient Plan DVT prophylaxis with Eliquis GI prophylaxis with PPI Code status full code Subjective Date/time seen: 09/11/22 15:27 Interval history: No overnight events noted. No chest pain or shortness of breath. No nausea, vomiting or diarrhea. No fevers or chills. Ambulating on his own. Admits to SOB with minimal exertion, which is baseline for him. Review of Systems Review of Systems: 12 point review of systems was assessed and was negative except as noted in the HPI Exam Narrative: General: No acute distress, alert and oriented per baseline HEENT: Atraumatic, normocephalic, mucous membranes moist CV: Regular rate and rhythm, S1, S2 murmur noted Lungs: Clear to auscultation bilaterally, no rales or crackles noted, no wheezes, good air entry Abdomen: Soft, nontender, nondistended Extremities: Normal to inspection Skin: No rashes noted, no lesions or wounds seen Psych: Euthymic, normal affect Objective Data Vital Signs Vital Signs: Vital Signs - 24 hr 09/10/22 15:40 09/10/22 15:55 09/10/22 15:55 Temperature 97.6 F 97.7 F 97.7 F Pulse Rate 72 71 71 Respiratory Rate 14 14 14 Bl
[2022-09-11] MEDS: METOPROLOL TARTRATE 50 MG TAB PO (20:59)
[2022-09-11] MEDS: ATORVASTATIN 10 MG TABLET PO (20:59)
[2022-09-11] MEDS: TAMSULOSIN HCL 0.4 MG CAPSULE PO (20:59)
[2022-09-11] MEDS: ZOLPIDEM TARTRATE (*CRX) 5 MG TABLET 10 MG PO (22:37)
[2022-09-12] VITALS (14 sets, daily range): BP systolic 105–114; BP diastolic 52–72; PULSE 60–66; RESP 12–18; TEMP 36.6–37.6; O2SAT 94–100
[2022-09-12] MEDS: LEVOTHYROXINE SODIUM 50 MCG TABLET PO (05:38)
[2022-09-12 06:18] LABS: Basophils Percent Auto 0.6 % (0.2-1.2); Eosinophils Absolute Auto 0.1 K/mm3 (0-0.3); Hematocrit 28.2 % (42.0-52.0); Hemoglobin 9.4 g/dL (14.0-18.0); Immature Granulocyte Absolute 0.08 K/mm3 (0.00-0.031); Immature Granulocyte Percent A 1.7 % (0-0.5); Mean Corpuscular HGB Conc 33.3 g/dl (32-36); Mean Corpuscular Hemoglobin 31.3 pg (26-34); Mean Platelet Volume 10.2 fl (7.4-10.4); Monocytes Absolute Auto 0.7 K/mm3 (0.1-0.6); Monocytes Percent Auto 13.8 % (2.6-8.5); Neutrophils Absolute Auto 2.9 K/mm3 (1.3-6.7); Neutrophils Percent Auto 59.9 % (45.5-73.1); Platelet Count Result 128 k/mm3 (150-375); Red Cell Distribution Width 20.7 % (11.5-14.5); White Blood Count 4.8 K/mm3 (4.5-10.0)
[2022-09-12 06:29] LABS: Alanine Aminotransferase 23 U/L (6-50); Albumin Level 2.6 g/dL (3.5-5.1); Alkaline Phosphatase 120 U/L (38-126); Anion Gap 1 mmol/L (8-16); Aspartate Amino Transferase 22 U/L (17-59); Bilirubin,Total 0.5 mg/dL (0.2-1.3); Blood Urea Nitrogen 14 mg/dL (9-20); Calcium 7.6 mg/dL (8.4-10.2); Carbon Dioxide 28 mmol/L (22-30); Chloride 97 mmol/L (98-107); Estimated CRCL calculation 28 ml/min; Estimated Glomerular Filt Rate 39; Glucose 85 mg/dL (65-110); Sodium 126 mmol/L (137-145)
[2022-09-12] MEDS: FLUTICASONE/UMECLIDIN/VILANTER 100-62.5-25 MCG ELLIPTA 1 PUFF INHALATION (08:25)
[2022-09-12] MEDS: AMIODARONE HCL 200 MG TABLET PO (09:30)
[2022-09-12] MEDS: BUMETANIDE 1 MG TABLET PO (09:31)
[2022-09-12] MEDS: MIDODRINE HCL 2.5 MG TABLET 5 MG PO ×2 (09:31→14:46)
[2022-09-12] MEDS: PANTOPRAZOLE 40 MG TABLET PO (09:32)
[2022-09-12] MEDS: FAMOTIDINE 20 MG TABLET PO (09:32)
[2022-09-12] MEDS: BENZONATATE 100 MG CAPSULE 200 MG PO ×2 (09:37→14:47)
--- NOTE | 2022-09-12 09:39 | PM.IMPN ---
Progress Note: A&P Assessment and Plan (1) MRSA bacteremia: Code(s): R78.81 - Bacteremia; B95.62 - Methicillin resistant Staphylococcus aureus infection as the cause of diseases classified elsewhere Status: Acute Assessment and Plan: YOLIS showed mitral valve endocarditis Will d/c vanc in favor of daptomycin every other day, starting tomorrow, to complete an 8 week course Check CMP/CPKs and consider repeat YOLIS at 6 weeks and consider d/c abx, otherwise, would favor an extended course d/t recurrent MRSA bacteremia and possible underlying immunocompromised state Recurrent bacteremia, just completed long-term course of IV antibiotics with vancomycin on August 01, no source found at that time, thought to be a central catheter that was removed but the culture did not come back viable repeat blood cultures NGTD, plan to d/c with [facility] to do every other day daptomycin infusions x 8 weeks with repeat YOLIS in 6 weeks by cardiology Tunneled catheter placed today by general surgery (2) Chronic kidney disease: Code(s): N18.9 - Chronic kidney disease, unspecified Status: Acute Assessment and Plan: Near baseline, appreciate nephrology consultation Stable onc gave procrit injection d/t anemia of chronic disease (3) Chronic diastolic CHF (congestive heart failure): Code(s): I50.32 - Chronic diastolic (congestive) heart failure Status: Acute Assessment and Plan: Appears euvolemic (4) Atrial flutter with rapid ventricular response: Code(s): I48.92 - Unspecified atrial flutter Status: Acute Assessment and Plan: Stable, cont metoprolol (5) Hypothyroidism, unspecified: Code(s): E03.9 - Hypothyroidism, unspecified Status: Acute Assessment and Plan: TSH is stable, continue home meds (6) Chronic idiopathic thrombocytopenia: Code(s): D69.3 - Immune thrombocytopenic purpura Status: Acute Assessment and Plan: stable (7) S/P aortic valve replacement with bioprosthetic valve: Code(s): Z95.3 - Presence of xenogenic heart valve Status: Acute Assessment and Plan: stable (8) Hyponatremia: Code(s): E87.1 - Hypo-osmolality and hyponatremia Status: Acute Assessment and Plan: improving, monitor (9) Immunodeficiency: Code(s): D84.9 - Immunodeficiency, unspecified Status: Acute Assessment and Plan: Consult oncology due to 12 month history of recurrent infections in a previously healthy individual, including recurrent C diff, collagenous colitis, several episodes of bacteremia, UTIs, new onset afib, among others--immunodeficiency workup pending, can be done outpatient Plan Plan is for patient to go home with [facility] and daptomycin q48h for 6-8 weeks with a possible repeat YOLIS at 6 weeks to confirm resolution of infective endocarditis prior to stopping IV abx Will also follow up with heme/onc for immunodeficiency workup F/u with pulm to optimize COPD management, changed inhaler to trelegy for triple therapy, cont albuterol as needed DVT prophylaxis with Eliquis--held for catheter placement, restart when ok with surgery GI prophylaxis with PPI Code status full code Subjective Date/time seen: 09/12/22 09:39 Interval history: No overnight events noted. No chest pain or shortness of breath. No nausea, vomiting or diarrhea. No fevers or chills. Port-A-Cath placed today by surgery. Patient tolerated the procedure well. Care coordination working on discharge with home healthcare for daptomycin q.48h for 6-8 weeks. Review of Systems Review of Systems: 12 point review of systems was assessed and was negative except as noted in the HPI Exam Narrative: General: No acute distress, alert and oriented per baseline HEENT: Atraumatic, normocephalic, mucous membranes moist CV: Regular rate and rhythm, S1, S2 murmur noted Lungs: Clear to auscultation bilaterally, no rales or crackles noted, no
--- NOTE | 2022-09-12 10:57 | WPDANESEPPF ---
Anes - Initial Pre Proc Eval Procedure: Operation Date: 09/05/22 13:45 Proposed Procedures p Esophagogastroduodenoscopy - Tian Recinos MD s Flexible Sigmoidoscopy - Tian Recinos MD Operation Date: 09/07/22 09:00 Proposed Procedures p Trans Esophageal Echo - Tania Muñiz MD Operation Date: 09/12/22 11:00 Proposed Procedures p Insertion Bin Cath - Emily Holt MD Date/Time: 09/12/22 10:57 Surgeon: Rhiannon Lomas MD Pre Op Diagnosis: Tachyarrhythmia,Dehydration,UTI,Weakness Patient Data Age: 82 Gender: M Height: 1.7 m Weight: 79.4 kg Last Vital Signs Temp 37.6 C 09/12/22 10:29 Pulse 66 09/12/22 10:29 Resp 14 09/12/22 10:29 BP 108/59 L 09/12/22 10:29 Pulse Ox 99 09/12/22 10:29 O2 Del Method Room Air 09/12/22 10:29 O2 Flow Rate 6 09/07/22 09:55 FiO2 21 09/04/22 20:35 Allergies Allergy/AdvReac Type Severity Reaction Status Date / Time sulfamethizole AdvReac Unknown Confusion Verified 09/05/22 10:12 sulfamethoxazole AdvReac Unknown Confusion Verified 09/05/22 10:12 trimethoprim AdvReac Unknown Confusion Verified 09/05/22 10:12 Home Medications Medication Instructions Recorded Confirmed Type albuterol sulfate 90 mcg/actuation 1 inh inhalation QID PRN Shortness 02/20/20 09/05/22 History aerosol inhaler (ProAir HFA) Of Breath solifenacin 10 mg tablet (Vesicare) 10 mg PO DAILY 07/13/21 09/05/22 History atorvastatin 10 mg tablet (Lipitor) 10 mg PO HS #90 tabs 10/21/21 09/05/22 Rx calcium carb-Ca gluc 500 mg 1 tablet PO DAILY 06/13/22 09/05/22 History calcium-magnesium ox-Mg gluc 250 mg tablet (Calcium Magnesium) clobetasol 0.05 % scalp solution 1 applic topical DAILY PRN Skin 06/13/22 09/05/22 History Irritation phenazopyridine 100 mg tablet 100 mg PO TID 06/13/22 09/05/22 History (Pyridium) Saccharomyces boulardii 250 mg 250 mg PO TID 90 days #270 caps 07/04/22 09/05/22 Rx capsule (Florastor) apixaban 2.5 mg tablet (Eliquis) 2.5 mg PO Q12HR #60 tabs 07/04/22 09/05/22 Rx famotidine 20 mg tablet 20 mg PO Q12HR 30 days #60 tabs 07/04/22 09/05/22 Rx midodrine 2.5 mg tablet 2.5 mg PO TID 90 days #270 tabs 07/04/22 09/05/22 Rx levothyroxine 50 mcg tablet 50 mcg PO DAILY 07/08/22 09/05/22 History (Synthroid) budesonide 0.5 mg/2 mL suspension 0.5 mg (2 mL) inhalation Q12HRT 07/24/22 09/05/22 Rx for nebulization (Pulmicort) #30 mL amiodarone 200 mg tablet (Pacerone) 200 mg PO DAILY@0800 #30 tabs 08/23/22 09/05/22 Rx benzonatate 100 mg capsule 200 mg PO TID PRN Cough 09/01/22 09/05/22 History guaifenesin 600 mg tablet, 600 mg PO Q12H PRN Cough 09/01/22 09/05/22 History extended release 12 hr (Mucinex) ipratropium bromide 0.02 % 0.5 mg inhalation BID 09/01/22 09/05/22 History solution for inhalation metoprolol tartrate 50 mg tablet 50 mg PO HS 09/01/22 09/05/22 History pantoprazole 40 mg tablet,delayed 40 mg PO DAILY 09/01/22 09/05/22 History release tamsulosin 0.4 mg capsule 0.4 mg PO HS 09/01/22 09/05/22 History zolpidem 10 mg tablet 10 mg PO HS 09/01/22 09/05/22 History Laboratory Tests 09/12/22 09/12/22 05:53 05:53 WBC 4.8 K/mm3 K/mm3 (4.5-10.0) RBC 3.00 M/mm3 L M/mm3 (4.6-6.20) Hgb 9.4 g/dL L g/dL (14.0-18.0) Hct 28.2 % L % (42.0-52.0) MCV 94.0 fl fl (80-100) MCH 31.3 pg pg (26-34) MCHC 33.3 g/dl g/dl (32-36) RDW 20.7 % H % (11.5-14.5) Plt Count 128 k/mm3 L k/mm3 (150-375) MPV 10.2 fl fl (7.4-10.4) Immature Gran % (Auto) 1.7 % H % (0-0.5) Neut % (Auto) 59.9 % % (45.5-73.1) Lymph % (Auto) 23.0 % % (18.3-44.2) Meeker % (Auto) 13.8 % H % (2.6-8.5) Eos % (Auto) 1.0 % % (0-4.4) Baso % (Auto) 0.6 % % (0.2-1.2) Lymph # (Auto) 1.10 K/mm3 K/mm3 (0.9-3.2) Meeker # (Auto) 0.7 K/mm3 H K/mm3 (0.1-0.6) Eos # (Auto) 0.1 K/mm3 K/mm3 (0-0.3) Baso # (Auto
--- NOTE | 2022-09-12 10:59 | WPDHPUPDATE1 ---
History and Physical Update Update Date/Time: 09/12/22 10:59 History and Physical has been reviewed, including an updated exam of the patient. There are NO changes in the patient's condition. Risks, benefits, and alternatives have been discussed and questions answered. Patient agrees to proceed with procedure.
[2022-09-12] MEDS: LACTATED RINGERS 1,000 ML 30 ML IV CONT (11:00)
[2022-09-12] MEDS: HEPARIN SODIUM, PORCINE 10,000 UNITS/10 ML VIAL 10000 UNITS IRRIGATION (11:48)
[2022-09-12] MEDS: BUPIVACAINE/EPINEPHRINE 0.5% 30 ML VIAL INFILTRATE (11:48)
[2022-09-12] MEDS: HEPARIN SODIUM 5,000 UNITS/ML VIAL 5000 UNITS SUB-Q (11:55)
--- NOTE | 2022-09-12 12:09 | W.PM.PROC2 ---
Procedure Note - Detailed Date of Procedure 09/12/22 Pre-op Diagnosis bacteremia Post-op Diagnosis Same Procedure Performed placement of left subclavian venous access device under fluoroscopic guidance Surgeon Emily Holt MD Anesthesia MAC and Local Indications 82-year-old male with recurrent bacteremia requiring access for long-term antibiotics Findings first stick L SCV Description of Procedure Patient was brought into the operating room and placed in the supine position. After adequate induction of mac anesthesia, the patient was prepped and draped in normal sterile fashion. Time-out was then done to verify the patient's identity, as well as the procedure being performed. I began by making a small incision in the left chest, I then gained access into the left subclavian vein with an 18 gauge needle. I then placed the guidewire into the vein and confirmed placement via fluoroscopic guidance. I then locally anesthetized the area in the left chest. I then enlarged the incision around the guidewire including making a subcutaneous pocket inferiorly to allow placement of the port itself. I then placed a dilating sheath over the guidewire into the left subclavian vein via sterile Seldinger technique. This was once again done and confirmed via fluoroscopic guidance. I then removed the dilator and the guidewire, now just leaving the sheath in the vein. I then fed the previously flushed catheter into the left subclavian vein under fluoroscopic guidance. At approximately 15 cm, the catheter was noted to be near the atrial caval junction. I then peeled away the sheath, now just leaving the catheter in the vein. I then was able to easily draw and flush from the catheter. The catheter was cut to fit and attached to the port itself. The port was placed into the previously made subcutaneous pocket and sutured in with 0 Ethibond suture. Final fluoroscopic view showed the termination of the catheter at the atrial caval junction with a nice smooth curvature back to the port itself. I was able to gain access to the port with a Damon needle and was able to easily draw and flush from the port. I then flushed 4 cc of a final heparin flush into the port. The incision was closed with 3 0 Vicryl suture in the subcutaneous tissue and the skin was closed with 4 O Monocryl subcuticular suture. Dermabond was then placed on wound. The patient tolerated the procedure well and will be sent to the recovery room in stable condition. Implants L SCV VAD Estimated Blood Loss 5 Drains No Packing No Pathology None sent Complications No immediate complications Condition Stable Disposition PACU [facility] Billing Surgery - Charge Forward: Surgery Billing
[2022-09-12] MEDS: DAPTOmycin 600 MG in SODIUM CHLORIDE 0.9% IV 50 ML 100 MG IVPB (14:48)
--- NOTE | 2022-09-12 15:39 | PM.DS ---
DS: Admitting Diagnosis Discharge Date 09/12/22 Admitting Diagnosis sob DS: Discharge Diagnosis Discharge Diagnosis (1) MRSA bacteremia: Code(s): R78.81 - Bacteremia; B95.62 - Methicillin resistant Staphylococcus aureus infection as the cause of diseases classified elsewhere Status: Acute Assessment and Plan: YOLIS showed mitral valve endocarditis Will d/c vanc in favor of daptomycin every other day, starting tomorrow, to complete an 8 week course Check CMP/CPKs and consider repeat YOLIS at 6 weeks and consider d/c abx, otherwise, would favor an extended course d/t recurrent MRSA bacteremia and possible underlying immunocompromised state Recurrent bacteremia, just completed long-term course of IV antibiotics with vancomycin on August 01, no source found at that time, thought to be a central catheter that was removed but the culture did not come back viable repeat blood cultures NGTD, plan to d/c with [facility] to do every other day daptomycin infusions x 8 weeks with repeat YOLIS in 6 weeks by cardiology Tunneled catheter placed today by general surgery (2) Chronic kidney disease: Code(s): N18.9 - Chronic kidney disease, unspecified Status: Acute Assessment and Plan: Near baseline, appreciate nephrology consultation Stable onc gave procrit injection d/t anemia of chronic disease (3) Chronic diastolic CHF (congestive heart failure): Code(s): I50.32 - Chronic diastolic (congestive) heart failure Status: Acute Assessment and Plan: Appears euvolemic (4) Atrial flutter with rapid ventricular response: Code(s): I48.92 - Unspecified atrial flutter Status: Acute Assessment and Plan: Stable, cont metoprolol (5) Hypothyroidism, unspecified: Code(s): E03.9 - Hypothyroidism, unspecified Status: Acute Assessment and Plan: TSH is stable, continue home meds (6) Chronic idiopathic thrombocytopenia: Code(s): D69.3 - Immune thrombocytopenic purpura Status: Acute Assessment and Plan: stable (7) S/P aortic valve replacement with bioprosthetic valve: Code(s): Z95.3 - Presence of xenogenic heart valve Status: Acute Assessment and Plan: stable (8) Hyponatremia: Code(s): E87.1 - Hypo-osmolality and hyponatremia Status: Acute Assessment and Plan: improving, monitor (9) Immunodeficiency: Code(s): D84.9 - Immunodeficiency, unspecified Status: Acute Assessment and Plan: Consult oncology due to 12 month history of recurrent infections in a previously healthy individual, including recurrent C diff, collagenous colitis, several episodes of bacteremia, UTIs, new onset afib, among others--immunodeficiency workup pending, can be done outpatient Plan Plan is for patient to go home with HHC and daptomycin q48h for 6-8 weeks with a possible repeat YOLIS at 6 weeks to confirm resolution of infective endocarditis prior to stopping IV abx Will also follow up with heme/onc for immunodeficiency workup F/u with pulm to optimize COPD management, changed inhaler to trelegy for triple therapy, cont albuterol as needed DVT prophylaxis with Eliquis--held for catheter placement, restart when ok with surgery GI prophylaxis with PPI Code status full code DS: Summary Hospital Course Hospital Course: 82-year-old male with history of atrial fibrillation, atrial flutter, supraventricular tachycardia, diastolic heart failure, coronary artery disease, pulmonary hypertension, aortic valve replacement, hypertension, benign prostatic hyperplasia, anemia, and other comorbidities who presented to the emergency department from home for evaluation of shortness of breath. He is well known to the hospitalist service from several recent, lengthy admissions: 06/13/2022 (admitted with MRSA bacteremia, no vegetations noted on YOLIS, complicated by C diff colitis), 07/08/2022 (sepsis, pyelonephritis, acute kidney injury, worsening an
[2022-09-14 16:11] LABS: Chloride Rand Ur <20 mmol/L (32-290); Creatinine Random Urine 69 mg/dL (20-320)
== END 2022-09-12 17:03 | disposition home health service (06) | DRG 288 ==
LOC: ANHED 16:21 → ANHIMU 20:11 → ANH3MEDSUR 09-02 12:28
PROVIDERS: Family Medicine; Internal Medicine; Internal Medicine Gastroenterology; Internal Medicine Hematology & Oncology; Internal Medicine Nephrology; Surgery; Admitting Provider Hospitalist; Emergency Provider Emergency Medicine; PCP Family Medicine; Visit Provider Student in an Organized Health Care Education/Training Program
PROC: 0DJ08ZZ Inspection of Upper Intestinal Tract, Via Natural or Artificial Opening Endoscopic (ICD-10-PCS; CPT 43235; principal; 2022-09-05 13:45)
PROC: 0DJD8ZZ Inspection of Lower Intestinal Tract, Via Natural or Artificial Opening Endoscopic (ICD-10-PCS; CPT 45330; 2022-09-05 13:45)
PROC: (CPT 93312; principal; 2022-09-07 09:00)
PROC: 0JH63XZ Insertion of Tunneled Vascular Access Device into Chest Subcutaneous Tissue and Fascia, Percutaneous Approach (ICD-10-PCS; principal; 2022-09-12 11:00)
DX: I33.0 Acute and subacute infective endocarditis (principal); I50.33 Acute on chronic diastolic (congestive) heart failure; I48.92 Unspecified atrial flutter; I13.0 Hypertensive heart and chronic kidney disease with heart failure and stage 1 through stage 4 chronic kidney disease, or unspecified chronic kidney disease; E87.1 Hypo-osmolality and hyponatremia; D69.3 Immune thrombocytopenic purpura; I47.1 Supraventricular tachycardia; N18.9 Chronic kidney disease, unspecified; D63.1 Anemia in chronic kidney disease; Z79.01 Long term (current) use of anticoagulants; I95.9 Hypotension, unspecified; I27.20 Pulmonary hypertension, unspecified; I25.10 Atherosclerotic heart disease of native coronary artery without angina pectoris; E78.2 Mixed hyperlipidemia; Z96.653 Presence of artificial knee joint, bilateral; K44.9 Diaphragmatic hernia without obstruction or gangrene; K57.30 Diverticulosis of large intestine without perforation or abscess without bleeding; K64.8 Other hemorrhoids; Z20.822 Contact with and (suspected) exposure to COVID-19; Z95.3 Presence of xenogenic heart valve; B95.62 Methicillin resistant Staphylococcus aureus infection as the cause of diseases classified elsewhere; E03.9 Hypothyroidism, unspecified; I44.0 Atrioventricular block, first degree; Z87.891 Personal history of nicotine dependence; Z79.51 Long term (current) use of inhaled steroids; Z79.899 Other long term (current) drug therapy; Z88.2 Allergy status to sulfonamides; Z82.49 Family history of ischemic heart disease and other diseases of the circulatory system; Z80.3 Family history of malignant neoplasm of breast; Z81.8 Family history of other mental and behavioral disorders
CPT/HCPCS: 36415; 36430; 36600; 70450; 71046; 76775; 77001; 80048; 80053; 80202; 80299; 81001; 81050; 82274; 82436; 82550; 82570; 82607; 82728; 82746; 82784; 83010; 83540; 83550; 83735; 83880; 84100; 84156; 84300; 84443; 84484; 85025; 85027; 85055; 85999; 86160; 86850; 86900; 86901; 86923; 87040; 87147; 87186; 87636; 93005; 93306; 93312; 93320; 93325; 94640; 96361; 96374; 97161; 97165; 97530; 97535; 99285; A9270; C1751; C1788; J0153; J0282; J0696; J0878; J1644; J1650; J1940; J2250; J2704; J3010; J3370; J3475; J3480; J7030; J7040; J7050; J7120; P9016; Q5105

== ENCOUNTER 2022-09-01 07:13 | Outpatient (RCR) | payer MEDICARE, OTHER, SELFPAY | END 2022-11-30 23:59 | disposition home or self-care (01) | LOC: ANHCPCTRAN 07:13 | PROVIDERS: PCP Family Medicine; Visit Provider Family Medicine | DX: D64.9 Anemia, unspecified (principal) | CPT/HCPCS: 99199 ==

== ENCOUNTER 2022-09-14 13:59 | Emergency (ER) | payer MEDICARE, OTHER, SELFPAY ==
--- NOTE | ~2022-09-14 | XR_ITS ---
EXAMINATION: XR chest 1V portable DATE: 09/14/2022 15:47 INDICATION: Port dysfunction. TECHNIQUE: A single frontal view of the chest was obtained. COMPARISON: Chest one view 09/12/2022 FINDINGS: There are small pleural effusions. There are airspace opacities at the lung bases. No pneum othorax. The heart size is normal. There are changes of aortic valve replacement. A retained epicardi al pacer wire overlies the upper abdomen. There is a left subclavian port with tip in superior vena c madelyn. IMPRESSION: 1. Left subclavian port with tip in superior vena cava. 2. Small pleural effusions. 3. Improved airspace opacities at the lung bases, likely atelectasis. Reviewed, dictated and finalized at location [facility]
[2022-09-14 14:10] VITALS: BP 102/62; PULSE 74; RESP 18; TEMP 36.4; O2SAT 98
--- NOTE | 2022-09-14 16:16 | ED.GENADULT ---
HPI - General Adult General Chief complaint: Unspecified Stated complaint: port problem Time Seen by Provider: 09/14/22 15:27 History of Present Illness HPI narrative: Patient had a port placed a week ago so that he can obtain daptomycin infusion at home, the nurse who came to the house today was unable to access the port. Patient denies any new symptoms including any changes to the skin, fevers or chills. Related Data Home Medications Medication Instructions Recorded Confirmed solifenacin 10 mg tablet (Vesicare) 10 mg PO DAILY 07/13/21 09/05/22 calcium carb-Ca gluc 500 mg 1 tablet PO DAILY 06/13/22 09/05/22 calcium-magnesium ox-Mg gluc 250 mg tablet (Calcium Magnesium) clobetasol 0.05 % scalp solution 1 applic topical DAILY PRN Skin 06/13/22 09/05/22 Irritation phenazopyridine 100 mg tablet 100 mg PO TID 06/13/22 09/05/22 (Pyridium) levothyroxine 50 mcg tablet 50 mcg PO DAILY 07/08/22 09/05/22 (Synthroid) metoprolol tartrate 50 mg tablet 50 mg PO HS 09/01/22 09/05/22 pantoprazole 40 mg tablet,delayed 40 mg PO DAILY 09/01/22 09/05/22 release tamsulosin 0.4 mg capsule 0.4 mg PO HS 09/01/22 09/05/22 zolpidem 10 mg tablet 10 mg PO HS 09/01/22 09/05/22 Allergies Allergy/AdvReac Type Severity Reaction Status Date / Time sulfamethizole AdvReac Unknown Confusion Verified 09/05/22 10:12 sulfamethoxazole AdvReac Unknown Confusion Verified 09/05/22 10:12 trimethoprim AdvReac Unknown Confusion Verified 09/05/22 10:12 Review of Systems Review of Systems: CONST: No fever. HEENT: No sore throat C/V: No chest pain RESP: No cough GI: No nausea or vomiting : No dysuria. M/S: No joint pain. SKIN: Bruising over port which has been present since placement NEURO: [No headache or focal numbness or weakness] PSYCH: [No depression] PMFSH Past Medical History Medical History Anemia Aortic valve stenosis Atrial fibrillation Atrial fibrillation with RVR Occurred during admission May 2022 due to sepsis Basal cell carcinoma Blood loss anemia BPH (benign prostatic hyperplasia) Chronic idiopathic thrombocytopenia Collagenous colitis Resulting in chronic loose stools Coronary artery disease Diastolic dysfunction Echocardiogram 04/2022: EF 70% grade 1 diastolic dysfunction, aortic valve prosthesis with good function, moderate pulmonary hypertension Diastolic heart failure Essential hypertension Gastroesophageal reflux Hyponatremia Hypothyroidism, unspecified Insomnia Kidney stones Latent tuberculosis Treated with INH in 1959 Mild persistent asthma without complication Mixed hyperlipidemia MRSA bacteremia PSVT (paroxysmal supraventricular tachycardia) Thrombocytopenia Surgical History Surgical History H/O aortic valve replacement (2013) 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 And 2 children. He smoked up to 4 packs of cigarettes per day but for the most part smoked 1-2 packs of cigarettes per day. He smoked for approximately 30 years but quit in 1991. He reports that he drinks 4 oz of liquor every day which he describes as social drinking. 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 Code status: Full code Surrogate decision maker: Nae () and Cee (youngest daughter) Smoking packs per day: 4 Smoking cigarettes per day: 80.0 Years smoked: 40 Smoking pack-years: 160.00
[2022-09-14] MEDS: DAPTOmycin 500 MG in SODIUM CHLORIDE 0.9% IV 50 ML 100 MG IVPB (16:47)
[2022-09-14] MEDS: HEPARIN SODIUM LOCK FLUSH 500 UNITS/5 ML VIAL (17:06)
[2022-09-14 17:16] VITALS: BP 102/68; PULSE 80; RESP 12; O2SAT 99
== END 2022-09-14 17:17 | disposition home or self-care (01) ==
LOC: ANHED 16:25
PROVIDERS: Emergency Provider Emergency Medicine; PCP Family Medicine
DX: Z45.2 Encounter for adjustment and management of vascular access device (principal); I48.91 Unspecified atrial fibrillation; I25.10 Atherosclerotic heart disease of native coronary artery without angina pectoris; I50.30 Unspecified diastolic (congestive) heart failure; I11.0 Hypertensive heart disease with heart failure; J45.30 Mild persistent asthma, uncomplicated; D69.3 Immune thrombocytopenic purpura; N40.0 Benign prostatic hyperplasia without lower urinary tract symptoms; K21.9 Gastro-esophageal reflux disease without esophagitis; E03.9 Hypothyroidism, unspecified; Z95.2 Presence of prosthetic heart valve; Z95.1 Presence of aortocoronary bypass graft; Z96.653 Presence of artificial knee joint, bilateral; Z85.828 Personal history of other malignant neoplasm of skin; Z86.14 Personal history of Methicillin resistant Staphylococcus aureus infection; Z86.2 Personal history of diseases of the blood and blood-forming organs and certain disorders involving the immune mechanism; Z87.442 Personal history of urinary calculi; Z87.891 Personal history of nicotine dependence; Z79.01 Long term (current) use of anticoagulants
CPT/HCPCS: 71045; 96365; 99284; J0878; J1642

== ENCOUNTER 2022-09-15 10:18 | Outpatient (CLI) | payer MEDICARE, OTHER, SELFPAY ==
[2022-09-15 10:43] LABS: Eosinophils Percent Auto 0.1 % (0-4.4); Hematocrit 28.3 % (42.0-52.0); Hemoglobin 9.2 g/dL (14.0-18.0); Immature Platelet Fraction Pct 4.1 % (0.9-11.2); Mean Corpuscular HGB Conc 32.5 g/dl (32-36); Mean Corpuscular Hemoglobin 31.5 pg (26-34); Mean Corpuscular Volume 96.9 fl (80-100); Monocytes Percent Auto 12.5 % (2.6-8.5); Platelet Count Result 130 k/mm3 (150-375); Red Blood Count 2.92 M/mm3 (4.6-6.20); White Blood Count 7.8 K/mm3 (4.5-10.0)
[2022-09-15 10:44] LABS: Basophils Percent Auto 0.4 % (0.2-1.2); Immature Granulocyte Absolute 0.08 K/mm3 (0.00-0.031); Neutrophils Absolute Auto 5.6 K/mm3 (1.3-6.7)
[2022-09-15 13:45] LABS: Iron 39 ug/dL (49-181)
[2022-09-15 13:51] LABS: Creatine Kinase 27 U/L (55-170)
[2022-09-15 13:57] LABS: Percent Iron Saturation 19 % (20-50)
[2022-09-15 14:33] LABS: Alanine Aminotransferase 23 U/L (6-50); Albumin Level 2.7 g/dL (3.5-5.1); Alkaline Phosphatase 127 U/L (38-126); Anion Gap 3 mmol/L (8-16); Aspartate Amino Transferase 23 U/L (17-59); Bilirubin,Total 0.7 mg/dL (0.2-1.3); Blood Urea Nitrogen 17 mg/dL (9-20); Calcium 7.7 mg/dL (8.4-10.2); Carbon Dioxide 30 mmol/L (22-30); Chloride 100 mmol/L (98-107); Estimated Glomerular Filt Rate 36; Glucose 83 mg/dL (65-110); Potassium 3.6 mmol/L (3.4-5.0); Sodium 133 mmol/L (137-145)
[2022-09-15 15:29] LABS: Folic Acid 8.4 ng/mL (2.76->20)
[2022-09-15 15:53] LABS: Ferritin > 2000.00 ng/mL (11.1-264)
== END 2022-09-15 10:19 | disposition home or self-care (01) ==
LOC: ANHLAB 10:20
PROVIDERS: PCP Family Medicine; Visit Provider Internal Medicine Hematology & Oncology
DX: D64.9 Anemia, unspecified (principal)
CPT/HCPCS: 36415; 80053; 82550; 82607; 82728; 82746; 83540; 83550; 85025; 85055

== ENCOUNTER 2022-09-21 09:49 | Outpatient (CLI) | payer MEDICARE, OTHER, SELFPAY ==
[2022-09-21 10:43] LABS: Basophils Percent Auto 0.5 % (0.2-1.2); Eosinophils Absolute Auto 0.1 K/mm3 (0-0.3); Eosinophils Percent Auto 1.3 % (0-4.4); Hematocrit 28.6 % (42.0-52.0); Hemoglobin 9.3 g/dL (14.0-18.0); Immature Granulocyte Absolute 0.13 K/mm3 (0.00-0.031); Immature Granulocyte Percent A 1.7 % (0-0.5); Immature Platelet Fraction Pct 5.3 % (0.9-11.2); Lymphocytes Absolute Auto 0.96 K/mm3 (0.9-3.2); Lymphocytes Percent Auto 12.6 % (18.3-44.2); Mean Corpuscular HGB Conc 32.5 g/dl (32-36); Mean Corpuscular Volume 95.3 fl (80-100); Mean Platelet Volume 10.6 fl (7.4-10.4); Monocytes Absolute Auto 0.8 K/mm3 (0.1-0.6); Monocytes Percent Auto 10.8 % (2.6-8.5); Neutrophils Absolute Auto 5.5 K/mm3 (1.3-6.7); Neutrophils Percent Auto 73.1 % (45.5-73.1); Platelet Count Result 119 k/mm3 (150-375); White Blood Count 7.6 K/mm3 (4.5-10.0)
[2022-09-21 10:54] LABS: Anion Gap 3 mmol/L (8-16); Blood Urea Nitrogen 22 mg/dL (9-20); CRP 8.5 mg/dL (<1.0); Calcium 8.2 mg/dL (8.4-10.2); Carbon Dioxide 30 mmol/L (22-30); Chloride 94 mmol/L (98-107); Creatine Kinase 21 U/L (55-170); Estimated Glomerular Filt Rate 32; Glucose 102 mg/dL (65-110); Potassium 3.8 mmol/L (3.4-5.0); Sodium 127 mmol/L (137-145)
== END 2022-09-21 09:50 | disposition home or self-care (01) ==
LOC: ANHLAB 09:52
PROVIDERS: PCP Family Medicine; Visit Provider Family Medicine
DX: N17.9 Acute kidney failure, unspecified (principal); R78.81 Bacteremia; D64.9 Anemia, unspecified; D69.6 Thrombocytopenia, unspecified; Z51.81 Encounter for therapeutic drug level monitoring
CPT/HCPCS: 36415; 80048; 82550; 85025; 85055; 86140

== ENCOUNTER 2022-09-26 12:37 | Inpatient (IN) | payer MEDICARE, OTHER, SELFPAY ==
[2022-09-26] VITALS (8 sets, daily range): BP systolic 111–130; BP diastolic 75–79; PULSE 65–78; RESP 20–24; TEMP 36.2–36.5; O2SAT 93–98; BMI 24.4
--- NOTE | ~2022-09-26 | XR_ITS ---
EXAMINATION: XR chest 1V portable INDICATION: Shortness of breath TECHNIQUE: Portable AP chest at 1415 hours COMPARISON: 09/14/2022 FINDINGS: A left subclavian Port-A-Cath ends with its tip in the superior vena cava. There are small pleural effusions with slight interval increase in size. Diffuse interstitial and airspace opacities have developed. No pneumothorax is identified. Changes of aortic valve replacement are noted. IMPRESSION: 1. Interval development of diffuse lung disease, consistent with pulmonary edema and/or pneumonia. 2. Small pleural effusions with increase in size. Reviewed, dictated and finalized at location L. AULIC OPERATOR IMPRESSION: 1. Interval development of diffuse lung disease, consistent with pulmonary luna a and/or pneumonia. 2. Small pleural effusions with increase in size.
--- NOTE | ~2022-09-26 | XR_ITS ---
EXAMINATION: XR chest 1V portable Exam Date/Time: 10/07/2022 12:10 [employer]ILLERY METE[employer]OLOG[employer] HISTORY: Congestive heart failure Comparison: 10/03/2022. RESULT: Lines, tubes, and devices: Implanted left chest port, catheter remains coiled and likely terminates in the brachiocephalic vein. Cardiac valve replacement. Intact sternotomy wires. Lungs and pleura: Increased diffuse reticular opacities, subsegmental consolidation/atelectasis in t he left midlung, and graded bibasilar opacities, with bilateral mild costophrenic angle blunting. Chr onic apical pleural and upper lung scarring. Cardiomediastinal silhouette: Stable. Other: No acute osseous or upper abdominal finding. IMPRESSION: Worsening pulmonary edema, small bilateral effusions, bibasilar compressive atelectasis, and left mid lung discoid atelectasis. Pneumonia is not excluded. Reviewed, dictated and finalized at location K. LLERY METEOROLOGICAL MAN IMPRESSION: Worsening pulmonary edema, small bilateral effusions, bibasilar compressive ate lectasis, and left midlung discoid atelectasis. Pneumonia is not excluded.
--- NOTE | ~2022-09-26 | XR_ITS ---
EXAMINATION: XR chest 2V DATE: 10/03/2022 13:17 INDICATION: Hypoxia TECHNIQUE: AP and lateral views of the chest are obtained. COMPARISON: 09/29/2022 FINDINGS: The left subclavian Port-A-Cath coils in the vein and now ends with its tip at the brachioc ephalic vein. Right pleural effusion and right basilar airspace opacities have resolved. There is a p ersistent small left pleural effusion. There are interstitial and airspace opacities throughout the l eft lung and in the right upper lung zone. Changes of cardiac valve surgery are noted. There is no pn eumothorax. The cardiomediastinal silhouette is stable. IMPRESSION: 1. Left subclavian Port-A-Cath now coiled in the subclavian vein with its tip in the brachiocephalic vein. 2. Resolved right pleural effusion and right basilar airspace opacities. 3. Small left pleural effusion. 4. Diffuse interstitial and airspace opacities throughout the left lung and in the right upper lung z one, consistent with pulmonary edema and/or pneumonia. Reviewed, dictated and finalized at location L. GGER IMPRESSION: 1. Left subclavian Port-A-Cath now coiled in the subclavian vein with its tip i n the brachiocephalic vein. 2. Resolved right pleural effusion and right basilar airspace opacities. 3. Small left pleural effusion. 4. Diffuse interstitial and airspace opacities throughout the left lung and in the right upper lung zone, consistent with pulmonary edema and/or pneumonia.
--- NOTE | ~2022-09-26 | XR_ITS ---
EXAMINATION: XR chest 2V DATE: 09/29/2022 12:25 INDICATION: Congestive heart failure TECHNIQUE: AP and lateral views of the chest are obtained. COMPARISON: 09/26/2022 FINDINGS: Diffuse interstitial and airspace opacities persist but have improved. Small pleural effusi ons persist but are decreased in size. The cardiomediastinal silhouette is normal. There is no pneumo thorax. A left subclavian Port-A-Cath ends with its tip in the superior vena cava. There are changes of aortic valve replacement. IMPRESSION: 1. Diffuse interstitial lung disease with interval improvement, consistent with pulmonary edema and/o r pneumonia. 2. Small pleural effusions with decrease in size. Reviewed, dictated and finalized at location B. ET MACHINE OPERATOR IMPRESSION: 1. Diffuse interstitial lung disease with interval improvement, consistent with pulmonary edema and/or pneumonia. 2. Small pleural effusions with decrease in size.
--- NOTE | 2022-09-26 12:50 | ED.SOB ---
HPI - SOB/Dyspnea General Chief Complaint: Shortness of Breath/Dyspnea Stated Complaint: SOB Time Seen by Provider: 09/26/22 12:50 Source: patient and EMS Mode of arrival: EMS Limitations: no limitations History of Present Illness HPI Narrative: Patient is an 82-year-old male with a complex medical history including aortic valve replacement in 2013, recent admission for endocarditis, atrial fibrillation on chronic anticoagulation, hypertension, coronary artery disease, COPD, pulmonary hypertension, BPH, anemia of chronic disease, presenting to the emergency department for evaluation of shortness of breath. Patient states he has had increasing shortness of breath over the past 3 days. Patient reports cough without sputum production. He denies fever or chills. He denies leg swelling or cramping. He denies recent sick contacts. He denies history of recent COVID infection. Patient states he does have a history of COPD but has not been reliably using his inhalers or nebulizer therapies at home. Patient has been compliant with his medications and has home health that has been helping to administer his medications daily. Reviewed patient's history including recent inpatient admission for MRS bacteremia and endocarditis, discharged home on 09/12/22 with Daptomycin through port. Per previous hospitalist note that I reviewed, he has had several admissions last year, including May 2022 with MRSA bacteremia and C. difficile colitis, June 2022 for sepsis, pyelonephritis and anemia, July 25, 2022 for altered mental status and influenza, July 2022 for atrial flutter/RVR with hypotension treated with amiodarone. I also reviewed the patient's GI consultation note from 09/22/22, stable collagenous colitis. Related Data Home Medications Medication Instructions Recorded Confirmed solifenacin 10 mg tablet (Vesicare) 10 mg PO DAILY 07/13/21 09/20/22 calcium carb-Ca gluc 500 mg 1 tablet PO DAILY 06/13/22 09/20/22 calcium-magnesium ox-Mg gluc 250 mg tablet (Calcium Magnesium) clobetasol 0.05 % scalp solution 1 applic topical DAILY PRN Skin 06/13/22 09/20/22 Irritation phenazopyridine 100 mg tablet 100 mg PO TID 06/13/22 09/20/22 (Pyridium) levothyroxine 50 mcg tablet 50 mcg PO DAILY 07/08/22 09/20/22 (Synthroid) metoprolol tartrate 50 mg tablet 50 mg PO HS 09/01/22 09/20/22 pantoprazole 40 mg tablet,delayed 40 mg PO DAILY 09/01/22 09/20/22 release tamsulosin 0.4 mg capsule 0.4 mg PO HS 09/01/22 09/20/22 zolpidem 10 mg tablet 10 mg PO HS 09/01/22 09/20/22 Allergies Allergy/AdvReac Type Severity Reaction Status Date / Time sulfamethizole AdvReac Unknown Confusion Verified 09/19/22 15:18 sulfamethoxazole AdvReac Unknown Confusion Verified 09/19/22 15:18 trimethoprim AdvReac Unknown Confusion Verified 09/19/22 15:18 Review of Systems Review of Systems: CONSTITUTIONAL: Denies fever, chills, or sweats. EYES: Denies visual changes, redness, or discharge. ENT: Denies rhinorrhea, congestion, sore throat, or otalgia. CARDIOVASCULAR: Denies chest pain, palpitations, or edema. RESPIRATORY: Reports cough and shortness of breath GASTROINTESTINAL: Denies abdominal pain, nausea, vomiting, or diarrhea. GENITOURINARY: Denies dysuria or hematuria. SKIN: Denies rash or itching. MUSCULOSKELETAL: Denies back pain, joint pain, or myalgia. NEUROLOGIC: Denies headache, numbness, reports generalized weakness PMFSH Past Medical History Medical History Anemia Aortic valve stenosis Atrial fibrillation Atrial fibrillation with RVR Occurred during admission May 2022 due to sepsis Basal cell carcinoma Blood loss anemia BPH (benign prostatic hyperplasia) Chronic idiopathic thrombocytopenia Chronic renal insufficiency, stage II (mild) Collagenous colitis Resulting in chronic loose stools Coronary artery disease Diastolic dysfunction Echocardiogram 04/2022: EF 70% grade 1 diast
--- NOTE | 2022-09-26 13:00 | ECG_ITS ---
Measurements Intervals [place] Rate: 72 P: -4 AR: 293 QRS: -8 QRSD: 113 T: 38 QT: 429 QTc: 472 Interpretive Statements SINUS RHYTHM WITH MARKED FIRST DEGREE AV BLOCK INTRAVENTRICULAR CONDUCTION DELAY BASELINE ARTIFACT- I, II, AVR, AVL, AVF ABNORMAL ECG COMPARED TO ECG 09/04/2022 10:17:24 NO SIGNIFICANT CHANGES Electronically Signed On 09-26-2022 15:14:13 HUMAN RELATIONS TEACHER by El Toth D.O.
[2022-09-26] MEDS: ALBUTEROL SULFATE NEB 2.5 MG/3 ML INH 5 MG INHALATION (13:10)
[2022-09-26] MEDS: IPRATROPIUM BR 0.02% INH SOLN 0.5 MG/2.5 ML VIAL INHALATION (13:10)
[2022-09-26 13:30] LABS: Alveolar/Arterial O2 Gradient 44.9 mmHg; Base Excess ABG 2.4 mEq/l (+/-2.0); Carboxyhemoglobin 2.1 % THb (0-2.0); Fractional Inspired Oxygen 21 %; HCO3 ABG 25.6 mEq/l (22.0-26.0); Oxygen Content ABG 10.6 %vol (16.0-22.0); Oxygen Saturation ABG 94.3 % (95.0-100.0); PCO2 ABG 33.8 mmHg (35.0-45.0); PO2 ABG 64.4 mmHg (80.0-100.0); PO2 FiO2 Ratio Arterial Blood 3.07 %; Reduced Hemoglobin 7.9 %THb (0-5.0); Total Hemoglobin 8.3 g/dL (12.0-18.0); pH ABG 7.497 (7.350-7.450)
[2022-09-26 13:31] LABS: Device ROOM AIR; Modified Allen's Test Pass; Site Drawn LEFT RADIAL
[2022-09-26 13:58] LABS: Hematocrit 32.8 % (42.0-52.0); Hemoglobin 10.8 g/dL (14.0-18.0); Immature Platelet Fraction Pct 6.6 % (0.9-11.2); Mean Corpuscular HGB Conc 32.9 g/dl (32-36); Mean Corpuscular Hemoglobin 31.9 pg (26-34); Mean Corpuscular Volume 96.8 fl (80-100); Mean Platelet Volume 10.7 fl (7.4-10.4); Platelet Count Result 129 k/mm3 (150-375); Red Blood Count 3.39 M/mm3 (4.6-6.20); Red Cell Distribution Width 21.6 % (11.5-14.5)
[2022-09-26] MEDS: methylPREDNISolone SOD SUCC 125 MG VIAL IV PUSH (14:06)
[2022-09-26] MEDS: SODIUM CHLORIDE 0.9% IV 500 ML 999 ML IV CONT (14:06)
[2022-09-26 14:07] LABS: Lactic Acid Reflex 1.2 mmol/L (0.7-2.0)
[2022-09-26 14:08] LABS: Alanine Aminotransferase 37 U/L (6-50); Albumin Level 2.8 g/dL (3.5-5.1); Alkaline Phosphatase 165 U/L (38-126); Anion Gap 8 mmol/L (8-16); Aspartate Amino Transferase 45 U/L (17-59); Bilirubin,Total 0.9 mg/dL (0.2-1.3); Blood Urea Nitrogen 24 mg/dL (9-20); Calcium 7.8 mg/dL (8.4-10.2); Carbon Dioxide 24 mmol/L (22-30); Chloride 93 mmol/L (98-107); Estimated CRCL calculation 28 ml/min; Estimated Glomerular Filt Rate 41; Glucose 97 mg/dL (65-110); Potassium 3.6 mmol/L (3.4-5.0); Sodium 125 mmol/L (137-145)
[2022-09-26 14:10] LABS: Mucus Urine Rare /lpf; RBC Urine 21-50 /hpf (0-2); Squamous Epithelial Cell Urine Rare /hpf (Few); WBC Urine 0-3 /hpf
[2022-09-26 14:14] LABS: Add Urine Microscopic? YES; Appearance Urine Clear (Clear); Bilirubin Urine Negative (Negative); Blood Urine 2+ (Negative); Color Urine Orange (Yellow); Glucose Urine UA Trace mg/dL (Negative); Ketones Urine Negative (Negative); Leukocyte Esterase Ur Negative LEU/UL (Negative); Nitrate Urine Positive (Negative); Protein Urine 1+ mg/dL (Negative)
[2022-09-26 14:19] LABS: NT Pro B Type Natriuretic Pept 14900 pg/mL (19.9-100); Troponin I 0.012 ng/mL (0.000-0.034)
[2022-09-26 14:27] LABS: Band Neutrophils Percent 4 % (0-6); INR 1.7; Monocytes Percent Manual 12 % (3-9); Neutrophils Percent Manual 80 % (46-73); Prothrombin Time 19.3 Seconds (11.1-14.7); Total Cells Counted 100
[2022-09-26 14:28] LABS: Schistocytes None Seen (NORMAL)
[2022-09-26 14:30] LABS: Partial Thromboplastin Time 39.3 SECONDS (22.3-36.8)
[2022-09-26 14:31] LABS: CRP 19.5 mg/dL (<1.0)
[2022-09-26] MEDS: FUROSEMIDE INJ 40 MG/4 ML VIAL IV PUSH (15:51)
--- NOTE | 2022-09-26 18:55 | ADMGEN ---
This patient, Naga De Leon, was admitted to IMU Room 211-01. Patient/family oriented to hospital policies and general routines including ID bracelet, bed and alarms, visiting hours, pain management, procedures, bathroom and other care routines, personal items, smoking policy, room service/diet, and visiting hours. Information on how to activate the Rapid Response Team has been discussed. Patient/Family are encouraged to report perceived risks to care and to ask questions if they do not understand what they are told or what they should do.
--- NOTE | 2022-09-26 20:46 | PM.IMHP ---
H&P: HPI History of Present Illness Date/Time: 09/26/22 20:46 Chief Complaint: Shortness of breath Narrative: This is an 82-year-old male patient who has had multiple admissions to this hospital. The patient has a history of aortic valve replacemen t, recent endocarditis, atrial fibrillation, hypertension coronary artery disease, COPD, BPH and anemia of chronic disease. Patient came to the emergency room to be evaluated for shortness of breath. The patient reports a nonproductive cough. The patient does have a history of COPD but is not using his inhalers or nebulizer treatments at home. Patient has some mild edema to his lower extremities. His H&H is 10.8 and 32.8. Sodium level was 125 which is typically low. Creatinine is 1.6 which is slightly below his baseline of 1.7-2.0. BNP 51329. The patient had positive nitrates in his urine. Chest x-ray was read as interval development of diffuse lung disease consistent with pulmonary edema and/or pneumonia. Small pleural effusions with increase in size. The patient was given a nebulizer treatment, IV fluids, Solu-Medrol, Lasix, cefepime, vancomycin and azithromycin in the emergency room. The patient is being admitted to inpatient status on the date of service of 09/26/2022. Review of Systems Review of Systems: See HPI All systems reviewed & are unremarkable except as noted in HPI and below Constitutional: Constitutional: Reports as per HPI and Reports no additional constitutional complaints Eyes: Eyes: Reports as per HPI and Reports no additional eye complaints ENT: Reports system reviewed and no additional complaints, except as documented and Reports Normal hearing present Cardiovascular: Cardiovascular: Reports no additional cardiovascular complaints Respiratory: Respiratory: Reports no additional respiratory complaints and Reports no additional respiratory complaints Gastrointestinal: Gastrointestinal: Reports as per HPI and Reports no additional gastrointestinal complaints Musculoskeletal: Musculoskeletal: Reports no additional musculoskeletal complaints Integumentary/Breasts: Skin/Breast: Reports system reviewed and no additional complaints, except as docu and Reports as per HPI Neurologic: Reports system reviewed and no additional complaints, except as documented, Reports as per HPI and Reports Normal hearing present Psychiatric: Psychiatric: Reports no additional psychiatric complaints and Reports as per HPI Endocrine: Endocrine: Reports no additional endocrine complaints Hematologic/Lymphatic: Hematologic/Lymphatic: Reports no additional hematologic/lymphatic complaints Allergic/Immunologic: Allergic/Immunologic: Reports no additional allergic/immunologic complaints [facility] Past Medical History Medical History (Updated 09/26/22 @ 23:37 by Bety Land NP) Anemia Aortic valve stenosis Atrial fibrillation Atrial fibrillation with RVR Occurred during admission May 2022 due to sepsis Basal cell carcinoma Blood loss anemia BPH (benign prostatic hyperplasia) Chronic idiopathic thrombocytopenia Chronic renal insufficiency, stage II (mild) Collagenous colitis Resulting in chronic loose stools Coronary artery disease Diastolic dysfunction Echocardiogram 04/2022: EF 70% grade 1 diastolic dysfunction, aortic valve prosthesis with good function, moderate pulmonary hypertension Diastolic heart failure Essential hypertension Gastroesophageal reflux Hyponatremia Hypothyroidism, unspecified Insomnia Kidney stones Latent tuberculosis Treated with INH in 1959 Mild persistent asthma without complication Mixed hyperlipidemia MRSA bacteremia Other endocarditis, valve unspecified PSVT (paroxysmal supraventricular tachycardia) Thrombocytopenia Surgical History Surgical History H/O aortic valve replacement (2013) Porcine valve Hx of CABG Status post bilateral knee replacements Family History Family His
[2022-09-27] VITALS (19 sets, daily range): BP systolic 92–106; BP diastolic 46–63; PULSE 55–86; RESP 14–26; TEMP 36.2–36.7; O2SAT 95–100
[2022-09-27] MEDS: FAMOTIDINE 20 MG TABLET PO ×3 (00:58→20:35)
[2022-09-27] MEDS: MIDODRINE HCL 2.5 MG TABLET 5 MG PO ×4 (00:59→16:38)
[2022-09-27] MEDS: ZOLPIDEM TARTRATE (*CRX) 5 MG TABLET 10 MG PO ×2 (00:59→20:33)
[2022-09-27] MEDS: AMIODARONE HCL 200 MG TABLET PO ×3 (01:00→20:34)
[2022-09-27] MEDS: APIXABAN 2.5 MG TABLET PO ×2 (01:00→09:33)
[2022-09-27] MEDS: TAMSULOSIN HCL 0.4 MG CAPSULE PO ×2 (01:00→20:33)
[2022-09-27] MEDS: ATORVASTATIN 10 MG TABLET PO (01:01)
[2022-09-27] MEDS: METOPROLOL TARTRATE 50 MG TAB PO ×2 (01:01→20:35)
[2022-09-27 04:44] LABS: Basophils Percent Auto 0.4 % (0.2-1.2); Immature Granulocyte Absolute 0.24 K/mm3 (0.00-0.031); Immature Granulocyte Percent A 9.5 % (0-0.5); Immature Platelet Fraction Pct 6.7 % (0.9-11.2); Lymphocytes Absolute Auto 0.21 K/mm3 (0.9-3.2); Lymphocytes Percent Auto 8.3 % (18.3-44.2); Mean Corpuscular HGB Conc 32.9 g/dl (32-36); Mean Corpuscular Hemoglobin 31.7 pg (26-34); Mean Corpuscular Volume 96.3 fl (80-100); Mean Platelet Volume 10.9 fl (7.4-10.4); Monocytes Absolute Auto 0.1 K/mm3 (0.1-0.6); Monocytes Percent Auto 3.6 % (2.6-8.5); Neutrophils Percent Auto 78.2 % (45.5-73.1); Platelet Count Result 137 k/mm3 (150-375); Red Blood Count 2.18 M/mm3 (4.6-6.20); Red Cell Distribution Width 21.2 % (11.5-14.5); White Blood Count 2.5 K/mm3 (4.5-10.0)
[2022-09-27 04:51] LABS: Lactic Acid Reflex 0.8 mmol/L (0.7-2.0)
[2022-09-27 04:52] LABS: Alanine Aminotransferase 36 U/L (6-50); Albumin Level 2.6 g/dL (3.5-5.1); Alkaline Phosphatase 136 U/L (38-126); Anion Gap 3 mmol/L (8-16); Aspartate Amino Transferase 41 U/L (17-59); Bilirubin,Total 0.6 mg/dL (0.2-1.3); Blood Urea Nitrogen 23 mg/dL (9-20); Calcium 7.8 mg/dL (8.4-10.2); Carbon Dioxide 28 mmol/L (22-30); Chloride 93 mmol/L (98-107); Estimated CRCL calculation 28 ml/min; Estimated Glomerular Filt Rate 39; Glucose 125 mg/dL (65-110); Potassium 3.9 mmol/L (3.4-5.0); Sodium 124 mmol/L (137-145)
[2022-09-27 05:19] LABS: Hemoglobin 6.9 g/dL (14.0-18.0); Platelet Estimate Adequate (Adequate)
[2022-09-27 05:20] LABS: Anisocytosis 1+ (NORMAL); Burr Cells 1+ (NORMAL); Ovalocytes 1+ (NORMAL); Schistocytes None Seen (NORMAL)
[2022-09-27] MEDS: LEVOTHYROXINE SODIUM 50 MCG TABLET PO (05:56)
[2022-09-27] MEDS: FLUTICASONE/UMECLIDIN/VILANTER 100-62.5-25 MCG ELLIPTA 1 PUFF INHALATION (08:07)
[2022-09-27] MEDS: SACCHAROMYCES BOULARDII 250 MG CAPSULE PO ×2 (09:33→16:38)
[2022-09-27] MEDS: PANTOPRAZOLE 40 MG TABLET PO (09:33)
[2022-09-27] MEDS: BUMETANIDE INJ 1 MG/4 ML VIAL IV PUSH ×2 (09:33→16:38)
[2022-09-27 10:49] LABS: Hemoglobin 6.6 g/dL (14.0-18.0)
[2022-09-27 10:50] LABS: Hematocrit 20.2 % (42.0-52.0)
[2022-09-27 12:42] LABS: Hematocrit 22.7 % (42.0-52.0); Hemoglobin 7.4 g/dL (14.0-18.0)
[2022-09-27] MEDS: BENZONATATE 100 MG CAPSULE 200 MG PO (14:07)
[2022-09-27] MEDS: ALTEPLASE 2 MG VIAL (CATHFLO) IV PUSH ×2 (14:08→16:45)
--- NOTE | 2022-09-27 14:26 | PM.IMPN ---
Progress Note: A&P Assessment and Plan (1) Acute exacerbation of CHF (congestive heart failure): Code(s): I50.9 - Heart failure, unspecified Status: Acute Assessment and Plan: Patient is compliant with his Bumex. He does not do daily weights. Patient with acute on chronic diastolic CHF. On Bumex IV. YOLIS on 09/07/22 with EF 60-65%, abnormal diastolic function and severe MR. Continue with metoprolol. Good response with the Bumex and clinically better. Wean O2 as tolerated. (2) Other endocarditis, valve unspecified: Code(s): I38 - Endocarditis, valve unspecified Status: Acute (3) Mitral regurgitation: Code(s): I34.0 - Nonrheumatic mitral (valve) insufficiency Status: Acute Assessment and Plan: This may be the etiology of his CHF exacerbation. Will discuss with cardiology about the need for surgical repair once his abx are complete. (4) Atrial fibrillation: Code(s): I48.91 - Unspecified atrial fibrillation Status: Acute Assessment and Plan: HR controlled. Tele showing sinus mechanism. Continue with metoprolol and amiodarone. Hold Eliquis. (5) Chronic anemia: Code(s): D64.9 - Anemia, unspecified Status: Acute Assessment and Plan: H&H is 10.8 and 32.8 which was above his baseline. On repeat, Hgb dropped to 6-7 range. He has had an anemia workup in the past. Will hold on transfusion until he can be evaluated by Hematology. He may need BMBx given the pancytopenia. Check SPEP, UPEP. Transfuse as necessary. Hold Eliquis for now. Check stool guaiac. Continue pepcid and PPI. (6) Hyponatremia: Code(s): E87.1 - Hypo-osmolality and hyponatremia Status: Chronic Assessment and Plan: Patient with chronic hyponatremia. Na runs mostly 129 range so not too far off his baseline. Suspect related to fluid overload. Urine studies not helpful since on Bumex. Follow (7) BPH without obstruction/lower urinary tract symptoms: Code(s): N40.0 - Benign prostatic hyperplasia without lower urinary tract symptoms Status: Acute Assessment and Plan: Stable. Continue with Flomax Subjective Date/time seen: 09/27/22 14:26 Interval history: 82yo male with multiple recent admissions to this hospital with hx of AV replacement, recent endocarditis, AFib, HTN, CAD, COPD, BPH and anemia of chronic disease here for SOB. Feeling better. No SOB or CP. Up walking to the bathroom with assistance. No n/v. No abdominal pain. +SCOTT. Exam Narrative: AF 97.9 92/46 72 24 98% 2L Gen - NARD lying semirecumbent in bed Chest - decreased BS in the bases. CV - RRR S1/S2. Tele showing no significant dyrhythmias Abd - Soft, NT/ND, Positive BS Ext - 1+ pedal edema Psych - Nml mood and affect Skin - Warm and dry Objective Data Vital Signs Vital Signs: Vital Signs - 24 hr 09/26/22 18:24 09/26/22 18:55 09/26/22 20:00 Temperature 97.2 F L Pulse Rate 71 78 78 Respiratory Rate 20 20 Blood Pressure 111/76 124/79 Pulse Oximetry 98 96 Oxygen Delivery Oxygen Flow Rate 09/26/22 20:00 09/26/22 20:00 09/26/22 22:00 Temperature Pulse Rate 74 74 65 Respiratory Rate 22 H Blood Pressure Pulse Oximetry 96 Oxygen Delivery Nasal Cannula Oxygen Flow Rate 2 09/26/22 23:01 09/27/22 00:00 09/27/22 00:00 Temperature 97.6 F Pulse Rate 71 68 68 Respiratory Rate 20 20 Blood Pressure 115/75 Pulse Oximetry 97 97 Oxygen Delivery Nasal Cannula Oxygen Flow Rate 2 09/27/22 01:00 09/27/22 01:01 09/27/22 03:36 Temperature 98.1 F Pulse Rate 78 78 73 Respiratory Rate 20 Blood Pressure 104/63 Pulse Oximetry 100 Oxygen Delivery Oxygen Flow Rate 09/27/22 02:00 09/27/22 04:00 09/27/22 04:00 Temperature Pulse Rate 70 64 64 Respiratory Rate 20 Blood Pressure Pulse Oximetry 100 Oxygen Delivery Nasal Cannula Oxygen Flow Rate 2 09/27/22 06:00 09/27/22 08:00
[2022-09-27] MEDS: DAPTOmycin 600 MG in SODIUM CHLORIDE 0.9% IV 50 ML 100 MG IVPB (16:39)
[2022-09-27 17:11] LABS: Hematocrit 23.1 % (42.0-52.0); Hemoglobin 7.3 g/dL (14.0-18.0)
[2022-09-27] MEDS: guaiFENesin 12 HR 600 MG TABCR PO (20:34)
[2022-09-27] MEDS: CENTRAL LINE FLUSH 10 ML IV PUSH (20:35)
[2022-09-27 23:04] LABS: Sodium 123 mmol/L (137-145)
[2022-09-27 23:10] LABS: Hematocrit 21.1 % (42.0-52.0)
[2022-09-28] VITALS (22 sets, daily range): BP systolic 95–143; BP diastolic 49–80; PULSE 60–84; RESP 14–20; TEMP 36–36.7; O2SAT 84–100
[2022-09-28 04:48] LABS: Hematocrit 21.4 % (42.0-52.0); Mean Corpuscular HGB Conc 32.7 g/dl (32-36); Mean Corpuscular Hemoglobin 31.7 pg (26-34); Mean Corpuscular Volume 96.8 fl (80-100); Mean Platelet Volume 10.8 fl (7.4-10.4); Platelet Count Result 150 k/mm3 (150-375); Red Blood Count 2.21 M/mm3 (4.6-6.20); Red Cell Distribution Width 21.3 % (11.5-14.5); White Blood Count 6.2 K/mm3 (4.5-10.0)
[2022-09-28 05:01] LABS: Albumin Level 2.7 g/dL (3.5-5.1); Anion Gap 3 mmol/L (8-16); Blood Urea Nitrogen 28 mg/dL (9-20); Calcium 7.9 mg/dL (8.4-10.2); Carbon Dioxide 27 mmol/L (22-30); Chloride 93 mmol/L (98-107); Estimated CRCL calculation 28 ml/min; Estimated Glomerular Filt Rate 39; Glucose 96 mg/dL (65-110); Magnesium 1.7 mg/dL (1.6-2.3); Phosphorus 3.8 mg/dL (2.5-4.5); Potassium 3.5 mmol/L (3.4-5.0); Sodium 123 mmol/L (137-145)
[2022-09-28 05:41] LABS: Anisocytosis 2+ (NORMAL); Band Neutrophils Percent 7 % (0-6); Basophils Absolute Manual 0.06 K/mm3 (0.0-0.1); Basophils Percent Manual 1 % (0-1); Lymphocytes Absolute Manual 0.24 K/mm3 (1.1-4.5); Metamyelocytes Percent 1 %; Monocytes Absolute Manual 0.49 K/mm3 (0.1-0.90); Monocytes Percent Manual 8 % (3-9); Myelocytes Percent 1 %; Neutrophils Absolute Manual 5.27 K/mm3 (1.3-6.7); Neutrophils Percent Manual 78 % (46-73); Platelet Estimate Adequate (Adequate); Total Cells Counted 100
[2022-09-28 05:42] LABS: Hypochromasia 2+ (NORMAL); Microcytosis 2+ (NORMAL); Ovalocytes 1+ (NORMAL); Schistocytes Rare (NORMAL)
[2022-09-28] MEDS: LEVOTHYROXINE SODIUM 50 MCG TABLET PO (05:58)
[2022-09-28] MEDS: FLUTICASONE/UMECLIDIN/VILANTER 100-62.5-25 MCG ELLIPTA 1 PUFF INHALATION (08:27)
[2022-09-28] MEDS: ALBUTEROL SULFATE (*SP) AEROSOL 1 PUFF INHALATION (08:28)
[2022-09-28] MEDS: MIDODRINE HCL 2.5 MG TABLET 5 MG PO ×3 (09:01→16:09)
[2022-09-28] MEDS: guaiFENesin 12 HR 600 MG TABCR PO ×2 (09:01→22:20)
[2022-09-28] MEDS: BUMETANIDE INJ 1 MG/4 ML VIAL IV PUSH ×2 (09:01→16:09)
[2022-09-28] MEDS: PANTOPRAZOLE 40 MG TABLET PO (09:02)
[2022-09-28] MEDS: MAGNESIUM SULF 2 GM/WATER 50ML 2 GM/50 ML BAG IVPB (09:02)
[2022-09-28] MEDS: SACCHAROMYCES BOULARDII 250 MG CAPSULE PO ×3 (09:02→16:09)
[2022-09-28] MEDS: FAMOTIDINE 20 MG TABLET PO ×2 (09:02→22:21)
[2022-09-28] MEDS: AMIODARONE HCL 200 MG TABLET PO ×2 (09:02→22:20)
[2022-09-28] MEDS: POTASSIUM CHLORIDE 20 MEQ TABLET 40 MEQ PO (09:03)
--- NOTE | 2022-09-28 11:19 | PCPTNOTE ---
attempted PT evaluation at 1115, pt was with nursing, bathing, unable to eval pt at this time.
--- NOTE | 2022-09-28 12:43 | PDONCCN ---
HPI - Date of Consult Date/Time: 09/28/22 12:43 Requesting Physician: Michelet Wells MD Primary Care Provider: Doris Ingram MD - Consult Narrative Reason for consult: Normocytic anemia Narrative: Naga De Leon is a 82 year old male with history of chronic renal insufficiency, atrial fibrillation, diastolic dysfunction and chronic anemia. He was seen in the office recently. Plan was to start him on Procrit injection for renal insufficiency. He came into the hospital with complain of increasing shortness of breath. Patient has a history of aortic valve replacement and recent endocarditis. He denies any bleeding including melena hematochezia. His chest x-ray showed diffuse lung disease consistent with pulmonary edema and/pneumonia. Labs showed hemoglobin of 6.6. He is still short of breath. He does have some tiredness and fatigue. No other new complaints. Review of Systems - Review of Systems All systems reviewed & are unremarkable except as noted in HPI and bel - Neurologic Reports system reviewed and no additional complaints, except as documented, Reports hearing normal [facility] Medical History: Medical History (Last Updated 09/26/22 @ 23:37 by Bety Land NP) Anemia Aortic valve stenosis Atrial fibrillation Atrial fibrillation with RVR Occurred during admission May 2022 due to sepsis Basal cell carcinoma Blood loss anemia BPH (benign prostatic hyperplasia) Chronic idiopathic thrombocytopenia Chronic renal insufficiency, stage II (mild) Collagenous colitis Resulting in chronic loose stools Coronary artery disease Diastolic dysfunction Echocardiogram 04/2022: EF 70% grade 1 diastolic dysfunction, aortic valve prosthesis with good function, moderate pulmonary hypertension Diastolic heart failure Essential hypertension Gastroesophageal reflux Hyponatremia Hypothyroidism, unspecified Insomnia Kidney stones Latent tuberculosis Treated with INH in 1959 Mild persistent asthma without complication Mixed hyperlipidemia MRSA bacteremia Other endocarditis, valve unspecified PSVT (paroxysmal supraventricular tachycardia) Thrombocytopenia Surgical History: Surgical History (Last Reviewed 09/26/22 @ 23:36 by Bety Land NP) H/O aortic valve replacement Onset Date: 2013 Porcine valve Hx of CABG Status post bilateral knee replacements Family History: Family History (Last Reviewed 09/26/22 @ 23:36 by Bety Land NP) Mother Family history of kidney disease Family history of Alzheimer's disease Hypertension Breast cancer Father Patient's father is , Onset Age: 60 Family history of coronary artery disease, Onset Age: 60 Acute myocardial infarction - Social History Social History: Social History (Last Reviewed 09/26/22 @ 23:36 by Bety Land NP) Gender Identity: Gender identity (if verbalized by the patient): Male Alcohol Use: Alcohol intake: never Alcohol use details: He reports that he drinks 4 oz of liquor every day. Substance Use: Substance use: never Substance use type: does not use Other substance usage details: 1 cocktail/day when he was well Others: Spiritual care concerns: No Agree to blood products: Yes Living Arrangements: Living arrangements: with family Oppucation/Education: Occupation/Education: retired Smoking Status: Smoking status: Former smoker Tobacco type: cigarettes Second hand tobacco smoke exposure: No Smoking end date: 09/26/97 Smoking Pack-years: Smoking packs per day: 4 Smoking cigarettes per day: 80.0 Years smoked: 40 Smoking pack-years: 160.00 Comments: Additional smoking assessment comments: quit in 2000 Social Determinants of Health: Has the Lack of Transportation Kept You From Medical Appointments or From Getting Medications?: No Within the Past 12 Months, Were You Worried Whether Your
--- NOTE | 2022-09-28 13:38 | PM.IMPN ---
Progress Note: A&P Assessment and Plan (1) Acute exacerbation of CHF (congestive heart failure): Code(s): I50.9 - Heart failure, unspecified Status: Acute Assessment and Plan: Patient was compliant with his Bumex at home. He does not do daily weights. Patient with acute on chronic diastolic CHF. YOLIS on 09/07/22 with EF 60-65%, abnormal diastolic function and severe MR. Currently on Bumex IV. UOP 1300 yesterday. Clinically better but fluid balance about even. Continue with metoprolol. Continue IV Bumex. Wean O2 as tolerated. (2) Other endocarditis, valve unspecified: Code(s): I38 - Endocarditis, valve unspecified Status: Acute Assessment and Plan: Patient had YOLIS 09/07/22 showing a calcified mobile marcelo the MV. BCx grew MRSA. Daptomycin continued yesterday. BCx on admission pending. Continue Daptomycin. Further imaging to ensure resolution and to further evaluate the valve. (3) Mitral regurgitation: Code(s): I34.0 - Nonrheumatic mitral (valve) insufficiency Status: Acute Assessment and Plan: This may be the etiology of his CHF exacerbation. Will discuss with cardiology about the need for surgical repair once his abx are complete and valve is clear. (4) Atrial fibrillation: Code(s): I48.91 - Unspecified atrial fibrillation Status: Acute Assessment and Plan: HR controlled. Tele showing sinus mechanism. Continue with metoprolol and amiodarone. Holding Eliquis. Will discuss with hematology about restarting. Okay to resume Eliquis per H/O (5) Chronic anemia: Code(s): D64.9 - Anemia, unspecified Status: Acute Assessment and Plan: H&H is 10.8 and 32.8 which was above his baseline. On repeat, Hgb dropped to 6-7 range. He has had an anemia workup in the past. We held transfusion until he can be evaluated by Hematology. He had low plt and WBC as well but those findings have improved. SPEP, UPEP pending. Plan for transfusion which should help with his SOB. Resume Eliquis?. Continue pepcid and PPI. (6) Hyponatremia: Code(s): E87.1 - Hypo-osmolality and hyponatremia Status: Chronic Assessment and Plan: Patient with chronic hyponatremia. Na runs mostly 129 range so not too far off his baseline. Suspect related to fluid overload. Urine studies not helpful since on Bumex. Na 123. Follow closely (7) BPH without obstruction/lower urinary tract symptoms: Code(s): N40.0 - Benign prostatic hyperplasia without lower urinary tract symptoms Status: Acute Assessment and Plan: Stable. Continue with Flomax Subjective Date/time seen: 09/28/22 13:38 Interval history: 82yo male with multiple recent admissions to this hospital with hx of AV replacement, recent endocarditis, AFib, HTN, CAD, COPD, BPH and anemia of chronic disease here for SOB. Denies shortness of breath or chest pain. Still having dyspnea on exertion. No nausea or vomiting. Slept well last night. No dysuria or hematuria. Eating okay. Exam Narrative: AF 104/58 68 18 98% 2L Gen - NARD lying semirecumbent in bed Chest - decreased BS in the bases o/w clear CV - RRR S1/S2. Tele showing no significant dysrhythmias Abd - Soft, NT/ND, Positive BS Ext - trace-1+ pedal edema Psych - Nml mood and affect Skin - Warm and dry Objective Data Vital Signs Vital Signs: Vital Signs - 24 hr 09/27/22 16:00 09/27/22 16:00 09/27/22 14:00 Temperature 97.4 F L Pulse Rate 70 68 Respiratory Rate 20 Blood Pressure 95/56 L Pulse Oximetry 98 97 Oxygen Delivery Nasal Cannula Oxygen Flow Rate 2 09/27/22 16:00 09/27/22 18:00 09/27/22 20:00 Temperature 97.6 F Pulse Rate 71 78 70 Respiratory Rate 14 Blood Pressure 96/55 L Pulse Oximetry 95 Oxygen Delivery Oxygen Flow Rate 09/27/22 20:34 09/27/22 20:35 09/27/22 20:00 Temperature Pulse Rate 86 78 66 Respiratory Rate Blood Pressure Pulse O
[2022-09-28 15:02] LABS: Sodium 125 mmol/L (137-145)
[2022-09-28] MEDS: SODIUM CHLORIDE 0.9% IV 250 ML 30 ML IV CONT (16:10)
[2022-09-28] MEDS: EPOETIN ALFA-EPBX 20,000 UNITS/ML VIAL 20000 UNITS SUB-Q (16:10)
[2022-09-28] MEDS: CENTRAL LINE FLUSH 10 ML IV PUSH ×2 (16:10→22:22)
[2022-09-28 20:55] LABS: Sodium 128 mmol/L (137-145)
[2022-09-28] MEDS: ZOLPIDEM TARTRATE (*CRX) 5 MG TABLET 10 MG PO (22:19)
[2022-09-28] MEDS: METOPROLOL TARTRATE 50 MG TAB PO (22:20)
[2022-09-28] MEDS: TAMSULOSIN HCL 0.4 MG CAPSULE PO (22:20)
[2022-09-28] MEDS: APIXABAN 2.5 MG TABLET PO (22:20)
[2022-09-29] VITALS (16 sets, daily range): BP systolic 103–115; BP diastolic 51–67; PULSE 59–78; RESP 14–22; TEMP 36.3–36.6; O2SAT 92–99
[2022-09-29 02:55] LABS: Sodium 123 mmol/L (137-145)
[2022-09-29 04:39] LABS: Hematocrit 27.2 % (42.0-52.0); Hemoglobin 9.1 g/dL (14.0-18.0); Mean Corpuscular HGB Conc 33.5 g/dl (32-36); Mean Corpuscular Hemoglobin 31.4 pg (26-34); Mean Corpuscular Volume 93.8 fl (80-100); Mean Platelet Volume 10.4 fl (7.4-10.4); Platelet Count Result 150 k/mm3 (150-375); Red Cell Distribution Width 20.5 % (11.5-14.5); White Blood Count 5.8 K/mm3 (4.5-10.0)
[2022-09-29 04:53] LABS: Albumin Level 2.5 g/dL (3.5-5.1); Anion Gap 4 mmol/L (8-16); Blood Urea Nitrogen 27 mg/dL (9-20); Calcium 7.7 mg/dL (8.4-10.2); Carbon Dioxide 27 mmol/L (22-30); Chloride 97 mmol/L (98-107); Estimated CRCL calculation 30 ml/min; Estimated Glomerular Filt Rate 41; Glucose 93 mg/dL (65-110); Phosphorus 2.9 mg/dL (2.5-4.5); Potassium 3.8 mmol/L (3.4-5.0); Sodium 128 mmol/L (137-145)
[2022-09-29 05:10] LABS: Anisocytosis 2+ (NORMAL); Band Neutrophils Percent 3 % (0-6); Basophils Absolute Manual 0.05 K/mm3 (0.0-0.1); Basophils Percent Manual 1 % (0-1); Eosinophils Absolute Manual 0.05 K/mm3 (0.02-0.5); Eosinophils Percent Manual 1 % (0-4); Lymphocytes Absolute Manual 0.52 K/mm3 (1.1-4.5); Metamyelocytes Percent 1 %; Monocytes Absolute Manual 0.69 K/mm3 (0.1-0.90); Monocytes Percent Manual 12 % (3-9); Neutrophils Percent Manual 73 % (46-73); Platelet Estimate Adequate (Adequate); Total Cells Counted 100
[2022-09-29 05:11] LABS: Hypochromasia 2+ (NORMAL); Macrocytosis 1+ (NORMAL); Microcytosis 1+ (NORMAL); Schistocytes None Seen (NORMAL)
[2022-09-29] MEDS: CENTRAL LINE FLUSH 10 ML IV PUSH ×3 (06:29→21:37)
[2022-09-29] MEDS: LEVOTHYROXINE SODIUM 50 MCG TABLET PO (06:29)
[2022-09-29] MEDS: APIXABAN 2.5 MG TABLET PO ×2 (08:33→21:36)
[2022-09-29] MEDS: SACCHAROMYCES BOULARDII 250 MG CAPSULE PO ×3 (08:34→17:11)
[2022-09-29] MEDS: FAMOTIDINE 20 MG TABLET PO ×2 (08:34→21:36)
[2022-09-29] MEDS: guaiFENesin 12 HR 600 MG TABCR PO ×2 (08:34→21:36)
[2022-09-29] MEDS: PANTOPRAZOLE 40 MG TABLET PO (08:34)
[2022-09-29] MEDS: AMIODARONE HCL 200 MG TABLET PO ×2 (08:34→21:36)
[2022-09-29] MEDS: MIDODRINE HCL 2.5 MG TABLET 5 MG PO ×3 (08:34→17:11)
[2022-09-29] MEDS: FLUTICASONE/UMECLIDIN/VILANTER 100-62.5-25 MCG ELLIPTA 1 PUFF INHALATION (08:37)
[2022-09-29] MEDS: BUMETANIDE INJ 2.5 MG/10 ML VIAL 2 MG IV PUSH ×2 (08:55→17:11)
--- NOTE | 2022-09-29 10:56 | PM.IMPN ---
Progress Note: A&P Assessment and Plan (1) Acute exacerbation of CHF (congestive heart failure): Code(s): I50.9 - Heart failure, unspecified Status: Acute Assessment and Plan: Patient was compliant with his Bumex at home. He does not do daily weights. Patient with acute on chronic diastolic CHF. YOLIS on 09/07/22 with EF 60-65%, abnormal diastolic function and severe MR. Currently on Bumex IV. UOP 1500 yesterday. Clinically better but fluid balance still about even. Continue with metoprolol. Continue IV Bumex but advance dose. Wean O2 as tolerated. Fluid restriction. Check CXR. Daily weights. (2) Other endocarditis, valve unspecified: Code(s): I38 - Endocarditis, valve unspecified Status: Acute Assessment and Plan: Patient had YOLIS 09/07/22 showing a calcified mobile marcelo the MV. BCx grew MRSA. Daptomycin continued 09/27. BCx on admission NGTD. Continue Daptomycin. Further imaging to ensure resolution after abx completed and to further evaluate the valve. (3) Mitral regurgitation: Code(s): I34.0 - Nonrheumatic mitral (valve) insufficiency Status: Acute Assessment and Plan: This may be the etiology of his CHF exacerbation. Most likely will need for surgical repair once his abx are complete and valve is clear. (4) Atrial fibrillation: Code(s): I48.91 - Unspecified atrial fibrillation Status: Acute Assessment and Plan: HR controlled. Tele showing sinus mechanism. Continue with metoprolol and amiodarone. Continue Eliquis. (5) Chronic anemia: Code(s): D64.9 - Anemia, unspecified Status: Acute Assessment and Plan: H&H was 10.8 and 32.8 on admission which was above his baseline. On repeat, Hgb dropped to 6-7 range. He has had an anemia workup in the past. We held transfusion until seen by Hematology. He also had low plt and WBC as well but those findings have improved. SPEP, UPEP pending. Underwent PRBC x1 transfusion 09/28/22. Hgb 9.1 today. Continue pepcid and PPI. (6) Hyponatremia: Code(s): E87.1 - Hypo-osmolality and hyponatremia Status: Chronic Assessment and Plan: Patient with chronic hyponatremia. Na runs mostly 129 range so not too far off his baseline. Suspect related to fluid overload. Urine studies not helpful since on Bumex. Na better at 128. Follow closely (7) BPH without obstruction/lower urinary tract symptoms: Code(s): N40.0 - Benign prostatic hyperplasia without lower urinary tract symptoms Status: Acute Assessment and Plan: Stable. Continue with Flomax Subjective Date/time seen: 09/29/22 10:56 Interval history: 82yo male with multiple recent admissions to this hospital with hx of AV replacement, recent endocarditis, AFib, HTN, CAD, COPD, BPH and anemia of chronic disease here for SOB. Feels tired today. Slept well last night. He sleeps on the incline. No shortness of breath at rest but having dyspnea on exertion when he was up with therapy to sit at the side of the bed. No chest pain or abdominal pain. He was able to walk in the room with a walker with minimal assistance. Exam Narrative: AF 111/64 771 8 92% 2L Gen - NARD sitting at the side of the bed Chest -decreased breath sounds in the bases right worse than left otherwise inspiratory crackles mid lower lung rehman. CV - RRR S1/S2 with 2/6 murmur. Tele showing no significant dysrhythmias Abd - Soft, NT/ND, Positive BS Ext - trace-1+ pedal edema Psych - Nml mood and affect but appears tired Skin - Warm and dry Objective Data Vital Signs Vital Signs: Vital Signs - 24 hr 09/28/22 12:00 09/28/22 15:44 09/28/22 16:15 Temperature 96.8 F L 97.1 F L 98.1 F Pulse Rate 68 65 69 Respiratory Rate 18 18 16 Blood Pressure 104/58 L 101/57 L 101/60 Pulse Oximetry 98 99 100 Oxygen Delivery Oxygen Flow Rate 09/28/22 16:15 09/28/22 16:30 09/28/22 17:30 Temperature 98.1 F 97.2 F L 97.4 F L P
--- NOTE | 2022-09-29 13:42 | PCOTNOTE ---
Attempted to see patient this pm, however patient refused. Pt reported already completed physical therapy stating, I already saw Nora. . Pt declined ADLs stating, I did that yesterday.
[2022-09-29] MEDS: DAPTOmycin 600 MG in SODIUM CHLORIDE 0.9% IV 50 ML 100 MG IVPB (17:09)
[2022-09-29] MEDS: METOPROLOL TARTRATE 50 MG TAB PO (21:36)
[2022-09-29] MEDS: ZOLPIDEM TARTRATE (*CRX) 5 MG TABLET 10 MG PO (21:37)
[2022-09-29] MEDS: TAMSULOSIN HCL 0.4 MG CAPSULE PO (21:37)
[2022-09-30] VITALS (14 sets, daily range): BP systolic 100–114; BP diastolic 55–63; PULSE 59–78; RESP 16–20; TEMP 36.3–37; O2SAT 92–99
[2022-09-30 04:31] LABS: Hematocrit 26.3 % (42.0-52.0); Hemoglobin 8.9 g/dL (14.0-18.0); Mean Corpuscular HGB Conc 33.8 g/dl (32-36); Mean Corpuscular Hemoglobin 32.4 pg (26-34); Mean Corpuscular Volume 95.6 fl (80-100); Mean Platelet Volume 9.9 fl (7.4-10.4); Platelet Count Result 124 k/mm3 (150-375); Red Blood Count 2.75 M/mm3 (4.6-6.20); Red Cell Distribution Width 20.5 % (11.5-14.5); White Blood Count 4.7 K/mm3 (4.5-10.0)
[2022-09-30 04:53] LABS: Albumin Level 2.3 g/dL (3.5-5.1); Anion Gap 4 mmol/L (8-16); Blood Urea Nitrogen 25 mg/dL (9-20); Calcium 7.4 mg/dL (8.4-10.2); Carbon Dioxide 30 mmol/L (22-30); Chloride 95 mmol/L (98-107); Estimated CRCL calculation 28 ml/min; Estimated Glomerular Filt Rate 39; Glucose 92 mg/dL (65-110); Phosphorus 2.7 mg/dL (2.5-4.5); Potassium 3.4 mmol/L (3.4-5.0); Sodium 129 mmol/L (137-145)
[2022-09-30] MEDS: CENTRAL LINE FLUSH 10 ML IV PUSH ×3 (05:59→21:00)
[2022-09-30] MEDS: LEVOTHYROXINE SODIUM 50 MCG TABLET PO (05:59)
[2022-09-30] MEDS: FLUTICASONE/UMECLIDIN/VILANTER 100-62.5-25 MCG ELLIPTA 1 PUFF INHALATION (09:08)
[2022-09-30] MEDS: AMIODARONE HCL 200 MG TABLET PO ×2 (09:41→20:59)
[2022-09-30] MEDS: POTASSIUM CHLORIDE 20 MEQ TABLET 40 MEQ PO (09:41)
[2022-09-30] MEDS: APIXABAN 2.5 MG TABLET PO ×2 (09:41→20:59)
[2022-09-30] MEDS: SACCHAROMYCES BOULARDII 250 MG CAPSULE PO ×3 (09:41→16:58)
[2022-09-30] MEDS: PANTOPRAZOLE 40 MG TABLET PO (09:42)
[2022-09-30] MEDS: FAMOTIDINE 20 MG TABLET PO ×2 (09:42→20:59)
[2022-09-30] MEDS: guaiFENesin 12 HR 600 MG TABCR PO ×2 (09:42→20:59)
[2022-09-30] MEDS: MIDODRINE HCL 2.5 MG TABLET 5 MG PO ×3 (09:42→16:58)
[2022-09-30] MEDS: BUMETANIDE INJ 2.5 MG/10 ML VIAL 2 MG IV PUSH ×2 (09:43→16:58)
--- NOTE | 2022-09-30 10:32 | PM.IMPN ---
Progress Note: A&P Assessment and Plan (1) Acute exacerbation of CHF (congestive heart failure): Code(s): I50.9 - Heart failure, unspecified Status: Acute Assessment and Plan: Patient was compliant with his Bumex at home. He does not do daily weights. Patient with acute on chronic diastolic CHF. YOLIS on 09/07/22 with EF 60-65%, abnormal diastolic function and severe MR. Currently on Bumex IV. UOP 1470 yesterday. Clinically better with negative fluid balance. Continue with metoprolol. Continue IV Bumex. Wean O2 as tolerated. Continue Fluid restriction. Continue daily weights although seem inaccurate. (2) Other endocarditis, valve unspecified: Code(s): I38 - Endocarditis, valve unspecified Status: Acute Assessment and Plan: Patient had YOLIS 09/07/22 showing a calcified mobile marcelo the MV. BCx grew MRSA. Daptomycin continued 09/27. BCx on admission NGTD. Continue Daptomycin. Further imaging to ensure resolution after abx completed and to further evaluate the valve. (3) Mitral regurgitation: Code(s): I34.0 - Nonrheumatic mitral (valve) insufficiency Status: Acute Assessment and Plan: This may be the etiology of his CHF exacerbation. Most likely will need for surgical repair once his abx are complete and valve is clear. (4) Atrial fibrillation: Code(s): I48.91 - Unspecified atrial fibrillation Status: Acute Assessment and Plan: HR controlled. Tele showing sinus mechanism. Continue with metoprolol and amiodarone. Continue Eliquis. (5) Chronic anemia: Code(s): D64.9 - Anemia, unspecified Status: Acute Assessment and Plan: H&H was 10.8 and 32.8 on admission which was above his baseline. On repeat, Hgb dropped to 6-7 range. He has had an anemia workup in the past. We held transfusion until seen by Hematology. He also had low plt and WBC as well but those findings have improved. SPEP, UPEP pending. Underwent PRBC x1 transfusion 09/28/22 with Hgb up to 9.1. Hgb 8.9 today and stable. Continue Pepcid and PPI. (6) Hyponatremia: Code(s): E87.1 - Hypo-osmolality and hyponatremia Status: Chronic Assessment and Plan: Patient with chronic hyponatremia. Na runs mostly 129 range so not too far off his baseline. Suspect related to fluid overload. Urine studies not helpful since on Bumex. Na better at 129. Follow closely (7) BPH without obstruction/lower urinary tract symptoms: Code(s): N40.0 - Benign prostatic hyperplasia without lower urinary tract symptoms Status: Acute Assessment and Plan: Stable. Continue with Flomax Subjective Date/time seen: 09/30/22 10:32 Interval history: 82yo male with multiple recent admissions to this hospital with hx of AV replacement, recent endocarditis, AFib, HTN, CAD, COPD, BPH and anemia of chronic disease here for SOB. Feels better today. Slept well. Still sleeping on an incline. Denies CP or SOB. Exam Narrative: AF 114/63 66 18 97% 2L Gen - NARD Chest - decreased BS bibasilar with inspiratory crackles. nml RR CV - RRR S1/S2 with 2/6 murmur. Tele showing no significant dysrhythmias Abd - Soft, NT/ND, Positive BS Ext - trace pedal edema Psych - Nml mood and affect. in good spirits Skin - Warm and dry Objective Data Vital Signs Vital Signs: Vital Signs - 24 hr 09/29/22 12:00 09/29/22 12:00 09/29/22 14:00 Temperature 97.8 F Pulse Rate 70 72 66 Respiratory Rate 16 Blood Pressure 103/59 L Pulse Oximetry 99 Oxygen Delivery Oxygen Flow Rate 09/29/22 12:00 09/29/22 16:00 09/29/22 16:00 Temperature 97.3 F L Pulse Rate 75 68 Respiratory Rate 20 Blood Pressure 115/61 Pulse Oximetry 93 99 Oxygen Delivery Nasal Cannula Oxygen Flow Rate 2 09/29/22 16:00 09/29/22 18:00 09/29/22 20:00 Temperature 97.8 F Pulse Rate 69 72 Respiratory Rate 20 Blood Pressure 107/51 L Pulse Oximetry 93 97 Oxygen Deli
[2022-09-30 10:48] LABS: IFOB Positive Control Positive; Immunochemical Fecal Occult Bl Positive (N)
--- NOTE | 2022-09-30 13:02 | PC.NURSE ---
This patient, Naga De Leon, was transferred to [address] [place] [address] on 09/30/22 at 1302. Personal belongings sent with patient. Report given to LORELEI Zamora. Appropriate documentation sent with patient.
[2022-09-30 20:10] LABS: Albumin 2.2 g/dL (3.8-4.8); Alpha 1 Globulin 0.6 g/dL (0.2-0.3); Alpha 2 Globulin 0.7 g/dL (0.5-0.9); Beta 1 Globulin 0.3 g/dL (0.4-0.6); Gamma Globulin 1.2 g/dL (0.8-1.7); Protein, Total 5.5 g/dL (6.1-8.1)
[2022-09-30] MEDS: ZOLPIDEM TARTRATE (*CRX) 5 MG TABLET 10 MG PO (20:57)
[2022-09-30] MEDS: TAMSULOSIN HCL 0.4 MG CAPSULE PO (20:59)
[2022-09-30] MEDS: ATORVASTATIN 10 MG TABLET PO (20:59)
[2022-09-30] MEDS: METOPROLOL TARTRATE 50 MG TAB PO (20:59)
[2022-10-01] VITALS (10 sets, daily range): BP systolic 98–120; BP diastolic 56–63; PULSE 64–73; RESP 16; TEMP 37–37.1; O2SAT 90–96
[2022-10-01] MEDS: CENTRAL LINE FLUSH 10 ML IV PUSH ×3 (05:27→21:24)
[2022-10-01] MEDS: LEVOTHYROXINE SODIUM 50 MCG TABLET PO (05:29)
[2022-10-01 06:19] LABS: Hematocrit 27.2 % (42.0-52.0); Hemoglobin 8.9 g/dL (14.0-18.0); Immature Platelet Fraction Pct 4.7 % (0.9-11.2); Mean Corpuscular HGB Conc 32.7 g/dl (32-36); Mean Corpuscular Hemoglobin 31.2 pg (26-34); Mean Corpuscular Volume 95.4 fl (80-100); Mean Platelet Volume 10.3 fl (7.4-10.4); Platelet Count Result 125 k/mm3 (150-375); Red Blood Count 2.85 M/mm3 (4.6-6.20); Red Cell Distribution Width 20.3 % (11.5-14.5)
[2022-10-01 06:23] LABS: Albumin Level 2.3 g/dL (3.5-5.1); Anion Gap 2 mmol/L (8-16); Blood Urea Nitrogen 24 mg/dL (9-20); Calcium 7.5 mg/dL (8.4-10.2); Carbon Dioxide 32 mmol/L (22-30); Chloride 97 mmol/L (98-107); Estimated CRCL calculation 30 ml/min; Estimated Glomerular Filt Rate 41; Glucose 91 mg/dL (65-110); Magnesium 1.9 mg/dL (1.6-2.3); Phosphorus 2.9 mg/dL (2.5-4.5); Potassium 3.6 mmol/L (3.4-5.0); Sodium 131 mmol/L (137-145)
[2022-10-01] MEDS: POTASSIUM CHLORIDE 20 MEQ TABLET 40 MEQ PO (07:54)
[2022-10-01] MEDS: guaiFENesin 12 HR 600 MG TABCR PO ×2 (07:57→20:24)
[2022-10-01] MEDS: PANTOPRAZOLE 40 MG TABLET PO (07:57)
[2022-10-01] MEDS: AMIODARONE HCL 200 MG TABLET PO ×2 (07:57→20:24)
[2022-10-01] MEDS: SACCHAROMYCES BOULARDII 250 MG CAPSULE PO ×3 (07:57→17:24)
[2022-10-01] MEDS: FAMOTIDINE 20 MG TABLET PO ×2 (07:57→20:24)
[2022-10-01] MEDS: MIDODRINE HCL 2.5 MG TABLET 5 MG PO ×3 (07:58→17:24)
[2022-10-01] MEDS: FLUTICASONE/UMECLIDIN/VILANTER 100-62.5-25 MCG ELLIPTA 1 PUFF INHALATION (10:17)
--- NOTE | 2022-10-01 12:02 | PM.IMPN ---
Progress Note: A&P Assessment and Plan (1) Acute exacerbation of CHF (congestive heart failure): Code(s): I50.9 - Heart failure, unspecified Status: Acute Assessment and Plan: Patient was compliant with his Bumex at home. He does not do daily weights. Patient with acute on chronic diastolic CHF. YOLIS on 09/07/22 with EF 60-65%, abnormal diastolic function and severe MR. Currently on Bumex IV. UOP 1830 yesterday. Clinically better with negative fluid balance and now of O2. Continue with metoprolol. Continue IV Bumex. Continue Fluid restriction. Continue daily weights although seem inaccurate. Change to oral Bumex tomorrow. Monitor BP. (2) Other endocarditis, valve unspecified: Code(s): I38 - Endocarditis, valve unspecified Status: Acute Assessment and Plan: Patient had YOLIS 09/07/22 showing a calcified mobile mass on the MV. BCx grew MRSA. Daptomycin continued 09/27. BCx on this admission NGTD. Continue Daptomycin. Further imaging to ensure resolution after abx completed and to further evaluate the valve. Will need at lest 6 weeks from negative BCx (09/07). (3) Mitral regurgitation: Code(s): I34.0 - Nonrheumatic mitral (valve) insufficiency Status: Acute Assessment and Plan: This may be the etiology of his CHF exacerbation. Most likely will need for surgical repair once his abx are complete and valve is clear. (4) Atrial fibrillation: Code(s): I48.91 - Unspecified atrial fibrillation Status: Acute Assessment and Plan: HR controlled. Tele showing sinus mechanism. Continue with metoprolol and amiodarone. Chart reviewed showing patient was on metoprolol succinate 50mg BID. Unclear why he is on metoprolol tartrate 50mg at night so will change to succinate. (5) Chronic anemia: Code(s): D64.9 - Anemia, unspecified Status: Acute Assessment and Plan: H&H was 10.8 and 32.8 on admission which was above his baseline. On repeat, Hgb dropped to 6-7 range. He has had an anemia workup in the past. We held transfusion until seen by Hematology. He also had low plt and WBC as well but those findings have improved. SPEP, UPEP pending. Underwent PRBC x1 transfusion 09/28/22 with Hgb up to 9.1. Hgb 8.9 today and stable. Stool guaiac positive so will hold Eliquis and consult GI. Continue Pepcid and PPI. (6) Hyponatremia: Code(s): E87.1 - Hypo-osmolality and hyponatremia Status: Chronic Assessment and Plan: Patient with chronic hyponatremia. Na runs mostly 129 range so not too far off his baseline. Suspect related to fluid overload. Urine studies not helpful since on Bumex. Na better at 131. Follow (7) BPH without obstruction/lower urinary tract symptoms: Code(s): N40.0 - Benign prostatic hyperplasia without lower urinary tract symptoms Status: Acute Assessment and Plan: Stable. Continue with Flomax Subjective Date/time seen: 10/01/22 12:02 Interval history: 82yo male with multiple recent admissions to this hospital with hx of AV replacement, recent endocarditis, AFib, HTN, CAD, COPD, BPH and anemia of chronic disease here for SOB. Feels well. Off o2 since yesterday. Slept well. Exam Narrative: AF 98.58 73 16 93% ra Gen - NARD sitting up in chair Chest - mildly decreased BS in the bases o/w clear, nml RR CV - RRR S1/S2 with 2/6 murmur. Abd - Soft, NT/ND, Positive BS Ext - trace pedal edema Psych - Nml mood and affect. in good spirits Skin - Warm and dry Objective Data Vital Signs Vital Signs: Vital Signs - 24 hr 09/30/22 14:00 09/30/22 20:59 09/30/22 20:59 Temperature 98.2 F Pulse Rate 70 70 70 Respiratory Rate 18 Blood Pressure 100/57 L Pulse Oximetry 94 Oxygen Delivery Oxygen Flow Rate 09/30/22 21:35 09/30/22 20:00 10/01/22 06:00 Temperature 98.6 F 98.6 F Pulse Rate 78 78 64 Respiratory Rate 16 16 16 Blood Pressure 107/58 L 110/57 L Pulse Oximetry 9
[2022-10-01] MEDS: BUMETANIDE INJ 2.5 MG/10 ML VIAL 2 MG IV PUSH (16:00)
[2022-10-01] MEDS: DAPTOmycin 600 MG in SODIUM CHLORIDE 0.9% IV 50 ML 100 MG IVPB (16:00)
[2022-10-01] MEDS: ZOLPIDEM TARTRATE (*CRX) 5 MG TABLET 10 MG PO (20:23)
[2022-10-01] MEDS: ATORVASTATIN 10 MG TABLET PO (20:24)
[2022-10-01] MEDS: TAMSULOSIN HCL 0.4 MG CAPSULE PO (20:24)
[2022-10-02] VITALS (7 sets, daily range): BP systolic 115–123; BP diastolic 64–68; PULSE 64–84; RESP 16–28; TEMP 36.4–36.7; O2SAT 92–93; BMI 26.0
[2022-10-02 05:33] LABS: Hematocrit 27.9 % (42.0-52.0); Immature Platelet Fraction Pct 4.2 % (0.9-11.2); Mean Corpuscular HGB Conc 32.3 g/dl (32-36); Mean Corpuscular Hemoglobin 30.7 pg (26-34); Mean Corpuscular Volume 95.2 fl (80-100); Mean Platelet Volume 10.3 fl (7.4-10.4); Platelet Count Result 114 k/mm3 (150-375); Red Blood Count 2.93 M/mm3 (4.6-6.20); White Blood Count 4.3 K/mm3 (4.5-10.0)
[2022-10-02] MEDS: LEVOTHYROXINE SODIUM 50 MCG TABLET PO (05:34)
[2022-10-02] MEDS: CENTRAL LINE FLUSH 10 ML IV PUSH ×3 (05:34→22:02)
[2022-10-02 05:51] LABS: Anion Gap 2 mmol/L (8-16); Blood Urea Nitrogen 22 mg/dL (9-20); Calcium 7.5 mg/dL (8.4-10.2); Carbon Dioxide 31 mmol/L (22-30); Chloride 97 mmol/L (98-107); Estimated CRCL calculation 30 ml/min; Estimated Glomerular Filt Rate 41; Glucose 94 mg/dL (65-110); Magnesium 1.7 mg/dL (1.6-2.3); Potassium 3.8 mmol/L (3.4-5.0); Sodium 130 mmol/L (137-145)
[2022-10-02] MEDS: FLUTICASONE/UMECLIDIN/VILANTER 100-62.5-25 MCG ELLIPTA 1 PUFF INHALATION (07:21)
[2022-10-02] MEDS: METOPROLOL SUCCINATE EXT REL 50 MG TABCR PO (08:13)
[2022-10-02] MEDS: BUMETANIDE 1 MG TABLET 2 MG PO ×2 (08:13→17:08)
[2022-10-02] MEDS: PANTOPRAZOLE 40 MG TABLET PO (08:13)
[2022-10-02] MEDS: FAMOTIDINE 20 MG TABLET PO ×2 (08:13→22:02)
[2022-10-02] MEDS: guaiFENesin 12 HR 600 MG TABCR PO ×2 (08:14→22:01)
[2022-10-02] MEDS: AMIODARONE HCL 200 MG TABLET PO ×2 (08:14→22:01)
[2022-10-02] MEDS: MIDODRINE HCL 2.5 MG TABLET 5 MG PO ×3 (08:14→17:08)
[2022-10-02] MEDS: SACCHAROMYCES BOULARDII 250 MG CAPSULE PO ×3 (08:14→17:08)
--- NOTE | 2022-10-02 11:57 | PCOTNOTE ---
Attempted to see Patient 2 times this A.M. Patient was eating breakfast the first time and second time, just returned to bed and feeling really weak. Patient's present and he declined to participate at this time.
--- NOTE | 2022-10-02 16:03 | WPDGICN ---
Assessment and Plan Assessment and plan (1) Acute on chronic anemia: Code(s): D64.9 - Anemia, unspecified Status: Acute Assessment and Plan: recent gi work up negative and no overt gib anemia is multifactorial and he is seeing hematology, he is supposed to get epogen or equivalent will sign off (2) Acute exacerbation of CHF (congestive heart failure): Code(s): I50.9 - Heart failure, unspecified Status: Acute Assessment and Plan: treated by primary (3) Chronic renal insufficiency, stage II (mild): Code(s): N18.2 - Chronic kidney disease, stage 2 (mild) Status: Acute (4) Other endocarditis, valve unspecified: Code(s): I38 - Endocarditis, valve unspecified Status: Acute Assessment and Plan: this has been treated recently and will follow up soon with cardiology GI Consult Note Consult date/time: 10/02/22 16:03 Reason for consult: acute on chornic anemia HPI: Naga De Leon is a 82 year old male ?of chronic renal insufficiency, atrial fibrillation, diastolic dysfunction and chronic anemia seeing by hematology. Patient has a history of aortic valve replacement and recent endocarditis. He has been in the hospital multiple times, 06/13/2022 admitted with MRSA bacteremia, also C diff colitis, 07/08/2022 sepsis, pyelonephritis, acute kidney injury, worsening anemia that required transfusion, 07/25/2022 influenza a, 08/19/2022 (dizziness, atrial flutter/RVR treated with amiodarone), 08/31/2022 MRSA bacteremia again with persistent anemia and finally EGD and sigmoidoscopy (reached ascending colon) was unremarkable. He was admitted after progressive shortness of breath, hb ~ 7, denies overt gib. Admitted for CHF exacerbation, FOBT +. Review of Systems Constitutional: Constitutional: Reports fatigue, Denies fever(s), Reports lethargy and Reports weakness Eyes: Eyes: Reports no additional eye complaints ENT: Reports Normal hearing present Cardiovascular: Cardiovascular: Denies chest pain, Denies pedal edema, Denies lightheadedness and Reports dyspnea Comments: Notes increased edema Respiratory: Respiratory: Denies chest congestion, Reports dyspnea and Reports dyspnea on exertion Gastrointestinal: Gastrointestinal: Denies abdominal pain and Denies hematochezia Genitourinary: Genitourinary: Denies dysuria Musculoskeletal: Musculoskeletal: Reports no additional musculoskeletal complaints Integumentary/Breasts: Skin/Breast: Denies unusual bruising Neurologic: Denies behavioral changes and Denies confusion Psychiatric: Psychiatric: Denies behavioral changes and Denies confusion [facility] Past Medical History Medical History (Updated 09/28/22 @ 12:49 by Zbigniew Calvin MD) Anemia Aortic valve stenosis Atrial fibrillation Atrial fibrillation with RVR Occurred during admission May 2022 due to sepsis Basal cell carcinoma Blood loss anemia BPH (benign prostatic hyperplasia) Chronic idiopathic thrombocytopenia Chronic renal insufficiency, stage II (mild) Collagenous colitis Resulting in chronic loose stools Coronary artery disease Diastolic dysfunction Echocardiogram 04/2022: EF 70% grade 1 diastolic dysfunction, aortic valve prosthesis with good function, moderate pulmonary hypertension Diastolic heart failure Essential hypertension Gastroesophageal reflux Hyponatremia Hypothyroidism, unspecified Insomnia Kidney stones Latent tuberculosis Treated with INH in 1959 Mild persistent asthma without complication Mixed hyperlipidemia MRSA bacteremia Other endocarditis, valve unspecified PSVT (paroxysmal supraventricular tachycardia) Thrombocytopenia Surgical History Surgical History (Updated 09/28/22 @ 12:49 by Zbigniew Calvin MD) H/O aortic valve replacement (2013) 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
--- NOTE | 2022-10-02 16:31 | PM.IMPN ---
Progress Note: A&P Assessment and Plan (1) Acute exacerbation of CHF (congestive heart failure): Code(s): I50.9 - Heart failure, unspecified Status: Acute Assessment and Plan: Patient was compliant with his Bumex at home. He does not do daily weights. Patient with acute on chronic diastolic CHF. YOLIS on 09/07/22 with EF 60-65%, abnormal diastolic function and severe MR. Treated with Bumex IV. UOP 1400 yesterday. Clinically better with negative fluid balance and now off of O2. Continue with metoprolol. Continue Bumex but change to oral. Continue Fluid restriction. Continue daily weights although seem inaccurate. Monitor BP. [place] [facility] has been set up. at bedside not wishing for patient to go to [place] now. She did not feel that he received appropriate care last time he went. She does not want him home b/c he is too weak. electronic funds transfer coordinator informed. (2) Other endocarditis, valve unspecified: Code(s): I38 - Endocarditis, valve unspecified Status: Acute Assessment and Plan: Patient had YOLIS 09/07/22 showing a calcified mobile mass on the MV. BCx grew MRSA. Daptomycin continued here on 09/27. BCx on this admission NGTD. Continue Daptomycin. Further imaging to ensure resolution after abx completed and to further evaluate the valve. Will need at lest 6 weeks from negative BCx (09/07); at least through 10/18/22. (3) Mitral regurgitation: Code(s): I34.0 - Nonrheumatic mitral (valve) insufficiency Status: Acute Assessment and Plan: This may be the etiology of his CHF exacerbation. Most likely will need for surgical repair once his abx are complete and valve is clear. (4) Atrial fibrillation: Code(s): I48.91 - Unspecified atrial fibrillation Status: Acute Assessment and Plan: HR controlled. Tele was showing sinus mechanism. Continue with metoprolol and amiodarone. Chart reviewed showing patient was on metoprolol succinate 50mg BID. Unclear why he is on metoprolol tartrate 50mg at night so changed to succinate. (5) Chronic anemia: Code(s): D64.9 - Anemia, unspecified Status: Acute Assessment and Plan: H&H was 10.8 and 32.8 on admission which was above his baseline. On repeat, Hgb dropped to 6-7 range. He has had an anemia workup in the past. We held transfusion until seen by Hematology. He also had low plt and WBC as well but those findings have improved. SPEP suggestive of acute inflammation. UPEP pending. Underwent PRBC x1 transfusion 09/28/22 with Hgb up to 9.1. Hgb 8-9 and stable. Stool guaiac positive and GI consulted. Recent Sigmoidoscopy and EGD showing no obvious source and GI did not have any further recommendations. Continue Pepcid and PPI. Resume Eliquis. (6) Hyponatremia: Code(s): E87.1 - Hypo-osmolality and hyponatremia Status: Chronic Assessment and Plan: Patient with chronic hyponatremia. Na runs mostly 129 range so not too far off his baseline. Suspect related to fluid overload. Urine studies not helpful since on Bumex. Na better at 130. Follow (7) BPH without obstruction/lower urinary tract symptoms: Code(s): N40.0 - Benign prostatic hyperplasia without lower urinary tract symptoms Status: Acute Assessment and Plan: Stable. Continue with Flomax Subjective Date/time seen: 10/02/22 16:31 Interval history: 82yo male with multiple recent admissions to this hospital with hx of AV replacement, recent endocarditis, AFib, HTN, CAD, COPD, BPH and anemia of chronic disease here for SOB. Feels weak and disoriented today. No n/v. No CP or SOB. Eating okay. Slept well. Exam Narrative: AF 98.0 120/64 79 28 93% ra Gen - NARD lyiing almost flat in bed Chest - CTA bilaterally CV - RRR S1/S2 with 2/6 murmur. Abd - Soft, NT/ND, Positive BS Ext - trace pedal edema Psych - Depressed mood and affect. AOx4 Skin - Warm and dry Objective Data Vital Signs Vital Signs: Vital Signs -
[2022-10-02] MEDS: ATORVASTATIN 10 MG TABLET PO (22:01)
[2022-10-02] MEDS: ZOLPIDEM TARTRATE (*CRX) 5 MG TABLET 10 MG PO (22:01)
[2022-10-02] MEDS: TAMSULOSIN HCL 0.4 MG CAPSULE PO (22:02)
[2022-10-02] MEDS: APIXABAN 2.5 MG TABLET PO (22:02)
[2022-10-02 22:30] LABS: Creatinine, Random Urine 23 mg/dL (20-320); Total Protein/Creatinine Ratio 478 mg/g creat (25-148)
[2022-10-03] VITALS (7 sets, daily range): BP systolic 92–100; BP diastolic 42–60; PULSE 67–85; RESP 16–20; TEMP 36.3–36.6; O2SAT 85–100
[2022-10-03] MEDS: CENTRAL LINE FLUSH 10 ML IV PUSH ×3 (05:12→20:45)
[2022-10-03 05:20] LABS: Basophils Percent Auto 0.3 % (0.2-1.2); Eosinophils Percent Auto 0.3 % (0-4.4); Hematocrit 28.7 % (42.0-52.0); Hemoglobin 9.4 g/dL (14.0-18.0); Immature Granulocyte Absolute 0.15 K/mm3 (0.00-0.031); Immature Granulocyte Percent A 2.2 % (0-0.5); Immature Platelet Fraction Pct 3.3 % (0.9-11.2); Lymphocytes Absolute Auto 0.25 K/mm3 (0.9-3.2); Lymphocytes Percent Auto 3.6 % (18.3-44.2); Mean Corpuscular HGB Conc 32.8 g/dl (32-36); Mean Corpuscular Hemoglobin 31.8 pg (26-34); Mean Platelet Volume 9.8 fl (7.4-10.4); Monocytes Absolute Auto 0.7 K/mm3 (0.1-0.6); Monocytes Percent Auto 9.6 % (2.6-8.5); Neutrophils Absolute Auto 5.8 K/mm3 (1.3-6.7); Platelet Count Result 110 k/mm3 (150-375); Red Blood Count 2.96 M/mm3 (4.6-6.20); White Blood Count 6.9 K/mm3 (4.5-10.0)
[2022-10-03 05:36] LABS: Alanine Aminotransferase 28 U/L (6-50); Albumin Level 2.4 g/dL (3.5-5.1); Alkaline Phosphatase 124 U/L (38-126); Anion Gap 1 mmol/L (8-16); Aspartate Amino Transferase 26 U/L (17-59); Bilirubin,Total 0.9 mg/dL (0.2-1.3); Blood Urea Nitrogen 19 mg/dL (9-20); Calcium 6.9 mg/dL (8.4-10.2); Carbon Dioxide 30 mmol/L (22-30); Chloride 98 mmol/L (98-107); Estimated CRCL calculation 31 ml/min; Estimated Glomerular Filt Rate 45; Glucose 90 mg/dL (65-110); Magnesium 1.4 mg/dL (1.6-2.3); Potassium 3.1 mmol/L (3.4-5.0); Sodium 129 mmol/L (137-145)
[2022-10-03] MEDS: LEVOTHYROXINE SODIUM 50 MCG TABLET PO (05:47)
[2022-10-03] MEDS: POTASSIUM CHLORIDE 20 MEQ TABLET 40 MEQ PO (07:58)
[2022-10-03] MEDS: MAGNESIUM SULF 2 GM/WATER 50ML 2 GM/50 ML BAG IVPB (07:58)
[2022-10-03] MEDS: BUMETANIDE 1 MG TABLET 2 MG PO ×2 (07:59→16:52)
[2022-10-03] MEDS: FAMOTIDINE 20 MG TABLET PO ×2 (07:59→20:41)
[2022-10-03] MEDS: MIDODRINE HCL 2.5 MG TABLET 5 MG PO ×3 (07:59→16:52)
[2022-10-03] MEDS: PANTOPRAZOLE 40 MG TABLET PO (07:59)
[2022-10-03] MEDS: SACCHAROMYCES BOULARDII 250 MG CAPSULE PO ×3 (07:59→16:52)
[2022-10-03] MEDS: AMIODARONE HCL 200 MG TABLET PO ×2 (07:59→20:41)
[2022-10-03] MEDS: APIXABAN 2.5 MG TABLET PO ×2 (07:59→20:43)
[2022-10-03] MEDS: METOPROLOL SUCCINATE EXT REL 50 MG TABCR PO (07:59)
[2022-10-03] MEDS: guaiFENesin 12 HR 600 MG TABCR PO ×2 (07:59→20:41)
[2022-10-03] MEDS: FLUTICASONE/UMECLIDIN/VILANTER 100-62.5-25 MCG ELLIPTA 1 PUFF INHALATION (09:01)
--- NOTE | 2022-10-03 10:56 | PM.IMPN ---
Progress Note: A&P Assessment and Plan (1) Acute exacerbation of CHF (congestive heart failure): Code(s): I50.9 - Heart failure, unspecified Status: Acute Assessment and Plan: Patient was compliant with his Bumex at home. He does not do daily weights. Patient with acute on chronic diastolic CHF. Echo 09/04/22 with EF 60-65%, abnormal diastolic function and severe MR. Treated with Bumex IV and transitioned to higher dose oral Bumex. We continued his metoprolol. Was clinically better with negative fluid balance and off of O2. Now appears overly fatigued and hypoxic. Worsening hyponatremia but still within his baseline. Related to over diuresis? Check CXR and ABG. Monitor BP. He takes Ambien at night which we will stop. Replace mag and potasium. (2) Other endocarditis, valve unspecified: Code(s): I38 - Endocarditis, valve unspecified Status: Acute Assessment and Plan: Patient had YOLIS 09/07/22 showing a calcified mobile mass on the MV. BCx grew MRSA. Daptomycin continued here. BCx this admission negative. Continue Daptomycin. He will need further imaging to ensure resolution after abx completed and to further evaluate the valve. Will need at lest 6 weeks from negative BCx (09/07); at least through 10/18/22. (3) Mitral regurgitation: Code(s): I34.0 - Nonrheumatic mitral (valve) insufficiency Status: Acute Assessment and Plan: This may be the etiology of his CHF exacerbation. Most likely will need for surgical repair once his abx are complete and valve is clear. (4) Atrial fibrillation: Code(s): I48.91 - Unspecified atrial fibrillation Status: Acute Assessment and Plan: HR controlled. Tele was showing sinus mechanism. Continue with metoprolol and amiodarone. Chart reviewed showing patient was on metoprolol succinate 50mg BID. Unclear why he is on metoprolol tartrate 50mg at night only so changed to succinate once daily. (5) Chronic anemia: Code(s): D64.9 - Anemia, unspecified Status: Acute Assessment and Plan: H&H was 10.8 and 32.8 on admission which was above his baseline. On repeat, Hgb dropped to 6-7 range. He has had an anemia workup in the past. We held transfusion until seen by Hematology. He also had low plt and WBC as well but those findings have improved. SPEP suggestive of acute inflammation. UPEP pending. Underwent PRBC x1 transfusion 09/28/22 with Hgb up to 9.1. Hgb now 8-9 and stable. Stool guaiac positive and GI consulted; appreciate GI input. Recent Sigmoidoscopy and EGD showing no obvious source and GI did not have any further recommendations. Continue Pepcid and PPI. (6) Hyponatremia: Code(s): E87.1 - Hypo-osmolality and hyponatremia Status: Chronic Assessment and Plan: Patient with chronic hyponatremia. Na runs mostly 129 range so not too far off his baseline on admission. Suspect related to fluid overload with improvement with diuresis. Urine studies not helpful since on Bumex. Na stable at 129. Follow (7) BPH without obstruction/lower urinary tract symptoms: Code(s): N40.0 - Benign prostatic hyperplasia without lower urinary tract symptoms Status: Acute Assessment and Plan: Stable. Continue with Flomax Subjective Date/time seen: 10/03/22 10:56 Interval history: 82yo male with multiple recent admissions to this hospital with hx of AV replacement, recent endocarditis, AFib, HTN, CAD, COPD, BPH and anemia of chronic disease here for SOB. Patient slept well. No CP or SOB. Does have SCOTT. No weakness in his extremities. No numbness/tingling in his hands or feet. He does not feel well this morning. (after my visit, resp therapist enter the room and found patient 85% on room air) Exam Narrative: AF 97.9 100/60 85 16 85% ra Gen - NARD lying semi-recumbent in bed Chest - decreased BS bibasilar otherwise clear. nml RR CV - RRR S1/S2 with 2/6 murmur. Abd - Soft, NT/ND, P
[2022-10-03 12:53] LABS: Alveolar/Arterial O2 Gradient 63.2 mmHg; Base Excess ABG 7.7 mEq/l (+/-2.0); Fractional Inspired Oxygen 24 %; HCO3 ABG 30.3 mEq/l (22.0-26.0); Oxygen Content ABG 15.8 %vol (16.0-22.0); Oxygen Saturation ABG 95.1 % (95.0-100.0); Oxyhemoglobin 91.1 % THb (90.0-100.0); PCO2 ABG 35.7 mmHg (35.0-45.0); PO2 ABG 65.4 mmHg (80.0-100.0); PO2 FiO2 Ratio Arterial Blood 2.73 %; Total Hemoglobin 12.3 g/dL (12.0-18.0)
[2022-10-03 12:58] LABS: Site Drawn RIGHT BRACHIAL; pH ABG 7.547 (7.350-7.450)
[2022-10-03 12:59] LABS: Liters per Minute 0.8 LPM
[2022-10-03 13:03] LABS: Device NASAL CANNULA
[2022-10-03] MEDS: DAPTOmycin 600 MG in SODIUM CHLORIDE 0.9% IV 50 ML 100 MG IVPB (16:50)
[2022-10-03] MEDS: ATORVASTATIN 10 MG TABLET PO (20:41)
[2022-10-03] MEDS: TAMSULOSIN HCL 0.4 MG CAPSULE PO (20:41)
[2022-10-03 21:16] LABS: Glucose Point of Care 95 mg/dl (65-105)
[2022-10-04] VITALS (8 sets, daily range): BP systolic 78–100; BP diastolic 46–58; PULSE 70–89; RESP 16–18; TEMP 36.4–37.8; O2SAT 94–99
[2022-10-04] MEDS: LEVOTHYROXINE SODIUM 50 MCG TABLET PO (05:56)
[2022-10-04] MEDS: CENTRAL LINE FLUSH 10 ML IV PUSH ×3 (05:57→21:20)
--- NOTE | 2022-10-04 08:18 | PM.IMPN ---
Progress Note: A&P Assessment and Plan (1) Acute exacerbation of CHF (congestive heart failure): Code(s): I50.9 - Heart failure, unspecified Status: Acute Assessment and Plan: Patient was compliant with his Bumex at home. He does not do daily weights. Patient with acute on chronic diastolic CHF. Echo 09/04/22 with EF 60-65%, abnormal diastolic function and severe MR. Treated with Bumex IV and transitioned to higher dose oral Bumex. We continued his metoprolol. Was clinically better with negative fluid balance and off of O2. Now appears overly fatigued and hypoxic. Worsening hyponatremia but still within his baseline. Related to over diuresis? Check CXR and ABG. Monitor BP. He takes Ambien at night which we will stop. Replace mag and potasium. (2) Other endocarditis, valve unspecified: Code(s): I38 - Endocarditis, valve unspecified Status: Acute Assessment and Plan: Patient had YOLIS 09/07/22 showing a calcified mobile mass on the MV. BCx grew MRSA. Daptomycin continued here. BCx this admission negative. Continue Daptomycin. He will need further imaging to ensure resolution after abx completed and to further evaluate the valve. Will need at lest 6 weeks from negative BCx (09/07); at least through 10/18/22. (3) Mitral regurgitation: Code(s): I34.0 - Nonrheumatic mitral (valve) insufficiency Status: Acute Assessment and Plan: This may be the etiology of his CHF exacerbation. Most likely will need for surgical repair once his abx are complete and valve is clear. (4) Atrial fibrillation: Code(s): I48.91 - Unspecified atrial fibrillation Status: Acute Assessment and Plan: HR controlled. Tele was showing sinus mechanism. Continue with metoprolol and amiodarone. Chart reviewed showing patient was on metoprolol succinate 50mg BID. Unclear why he is on metoprolol tartrate 50mg at night only so changed to succinate once daily. (5) Chronic anemia: Code(s): D64.9 - Anemia, unspecified Status: Acute Assessment and Plan: H&H was 10.8 and 32.8 on admission which was above his baseline. On repeat, Hgb dropped to 6-7 range. He has had an anemia workup in the past. We held transfusion until seen by Hematology. He also had low plt and WBC as well but those findings have improved. SPEP suggestive of acute inflammation. UPEP pending. Underwent PRBC x1 transfusion 09/28/22 with Hgb up to 9.1. Hgb now 8-9 and stable. Stool guaiac positive and GI consulted; appreciate GI input. Recent Sigmoidoscopy and EGD showing no obvious source and GI did not have any further recommendations. Continue Pepcid and PPI. (6) Hyponatremia: Code(s): E87.1 - Hypo-osmolality and hyponatremia Status: Chronic Assessment and Plan: Patient with chronic hyponatremia. Na runs mostly 129 range so not too far off his baseline on admission. Suspect related to fluid overload with improvement with diuresis. Urine studies not helpful since on Bumex. Na stable at 129. Follow (7) BPH without obstruction/lower urinary tract symptoms: Code(s): N40.0 - Benign prostatic hyperplasia without lower urinary tract symptoms Status: Acute Assessment and Plan: Stable. Continue with Flomax Plan Port-A-Cath malfunction, general surgery consulted for possible Sands catheter? DVT prophylaxis with Eliquis GI prophylaxis not indicated Code status full code Subjective Date/time seen: 10/04/22 08:18 Interval history: 82yo male with multiple recent admissions to this hospital with hx of AV replacement, recent endocarditis, AFib, HTN, CAD, COPD, BPH and anemia of chronic disease here for SOB. No overnight events noted. No chest pain or shortness of breath. No nausea, vomiting or diarrhea. No fevers or chills. Stable on 4 L. Review of Systems Review of Systems: 12 point review of systems was assessed and was negative except as noted in the HPI Exa
[2022-10-04] MEDS: guaiFENesin 12 HR 600 MG TABCR PO ×2 (08:30→21:19)
[2022-10-04] MEDS: SACCHAROMYCES BOULARDII 250 MG CAPSULE PO ×3 (08:30→16:45)
[2022-10-04] MEDS: PANTOPRAZOLE 40 MG TABLET PO (08:31)
[2022-10-04] MEDS: APIXABAN 2.5 MG TABLET PO ×2 (08:31→21:19)
[2022-10-04] MEDS: MIDODRINE HCL 2.5 MG TABLET 5 MG PO ×3 (08:31→16:45)
[2022-10-04] MEDS: FAMOTIDINE 20 MG TABLET PO ×2 (08:31→21:19)
[2022-10-04] MEDS: FLUTICASONE/UMECLIDIN/VILANTER 100-62.5-25 MCG ELLIPTA 1 PUFF INHALATION (09:19)
--- NOTE | 2022-10-04 09:21 | VASCRN ---
Order received for: consult to remove coil from left subclavian port-a-cath tubing This left subclavian port-a-cath was placed by Dr. Holt on 09/12/22 for 6-8 week of IV antibiotics. After reviewing cxr from 10/03/[address] Gomez about left subclavian coil in port tubing, I am unable to resolve coil situation. Patient will need to be referred to surgery for left subclavian port-a-cath tubing coil resolution. I spoke with patient's nurse, Sina and Dr. Perales about cxr findings and needed surgery referral. Provider notified: Dr. Perales
[2022-10-04] MEDS: AMIODARONE HCL 200 MG TABLET PO ×2 (09:34→21:19)
[2022-10-04] MEDS: BUMETANIDE 1 MG TABLET 2 MG PO ×2 (09:35→16:45)
--- NOTE | 2022-10-04 10:40 | PC.NURSE ---
Student nurse to recheck BP. 78/48. Metoprolol non administered.
--- NOTE | 2022-10-04 12:04 | PM.CNGS ---
Assessment and Plan Assessment and plan (1) Port-A-Cath in place: Code(s): Z95.828 - Presence of other vascular implants and grafts Status: Acute Assessment and Plan: CXR reviewed c radiology, felt to be looped in LIJ, no kinking noted, cont to use VAD as no increased risk of complication with loop, only plan to replace if port becomes dysfunctional (2) Other endocarditis, valve unspecified: Code(s): I38 - Endocarditis, valve unspecified Status: Acute Assessment and Plan: cont abx per primary team (3) Acute dyspnea: Code(s): R06.00 - Dyspnea, unspecified Status: Acute Assessment and Plan: multifactorial, seems to be improving, cont mgmt per primary team History of Present Illness Consult details Consult date: 10/04/22 Reason for consult: central line Requesting physician: Bety Land NP Narrative: The patient is an 82-year-old male with multiple medical issues presenting with worsening shortness of breath. The patient was found to have COPD and CHF exacerbation and has subsequently been admitted to the hospitalist service. The patient had a left subclavian venous access device placed by or on September 12 for long-term antibiotic access secondary to endocarditis. The patient reports no issues with this port and has been functioning properly. On chest x-ray this morning, the catheter from the port looks to the looped and we have been consulted for further evaluation. Of note, the port continues to function well and is not causing any pain or issues to the patient. Review of Systems Review of Systems: All systems reviewed & are unremarkable except as noted in HPI and below PMFSH Past Medical History Medical History Anemia Aortic valve stenosis Atrial fibrillation Atrial fibrillation with RVR Occurred during admission May 2022 due to sepsis Basal cell carcinoma Blood loss anemia BPH (benign prostatic hyperplasia) Chronic idiopathic thrombocytopenia Chronic renal insufficiency, stage II (mild) Collagenous colitis Resulting in chronic loose stools Coronary artery disease Diastolic dysfunction Echocardiogram 04/2022: EF 70% grade 1 diastolic dysfunction, aortic valve prosthesis with good function, moderate pulmonary hypertension Diastolic heart failure Essential hypertension Gastroesophageal reflux Hyponatremia Hypothyroidism, unspecified Insomnia Kidney stones Latent tuberculosis Treated with INH in 1959 Mild persistent asthma without complication Mixed hyperlipidemia MRSA bacteremia Other endocarditis, valve unspecified PSVT (paroxysmal supraventricular tachycardia) Thrombocytopenia Surgical History Surgical History H/O aortic valve replacement (2014) 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 And 2 children. He smoked up to 4 packs of cigarettes per day but for the most part smoked 1-2 packs of cigarettes per day. He smoked for approximately 30 years but quit in 1991. He reports that he drinks 4 oz of liquor every day which he describes as social drinking. 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 Code status: Full code Surrogate decision maker: Nae () and Cee (youngest daughter) Smoking packs per day: 4 Smoking cigarettes per day: 80.0 Years smoked: 40 Smoking pack-years: 160.00 Smoking status:
--- NOTE | 2022-10-04 16:04 | PC.NURSE ---
On 10/04/22, the student, [Janeen Villalba], provided care and completed [employer] documentation on this patient. I have reviewed the student's documentation and agree with the findings.
[2022-10-04] MEDS: ATORVASTATIN 10 MG TABLET PO (21:00)
[2022-10-04] MEDS: TAMSULOSIN HCL 0.4 MG CAPSULE PO (21:19)
[2022-10-05] VITALS (8 sets, daily range): BP systolic 84–101; BP diastolic 47–55; PULSE 65–74; RESP 16–18; TEMP 36.7–37.4; O2SAT 92–97
[2022-10-05] MEDS: LEVOTHYROXINE SODIUM 50 MCG TABLET PO (05:36)
--- NOTE | 2022-10-05 06:09 | PC.NURSE ---
Encouraged pt to increase self care and positivity. Emotional support given throughout shift. Pt states this am he will try to make a positive change today.
--- NOTE | 2022-10-05 08:18 | PM.IMPN ---
Progress Note: A&P Assessment and Plan (1) Acute exacerbation of CHF (congestive heart failure): Code(s): I50.9 - Heart failure, unspecified Status: Acute Assessment and Plan: appears to be euvolemic at this time, diuretics held today as patient starting to appear dehydrated, fluid restriction lifted, will restart diuretics tomorrow (2) Other endocarditis, valve unspecified: Code(s): I38 - Endocarditis, valve unspecified Status: Acute Assessment and Plan: repeat YOLIS tomorrow, patient had recurrence of positive blood cultures (3) Mitral regurgitation: Code(s): I34.0 - Nonrheumatic mitral (valve) insufficiency Status: Acute Assessment and Plan: stable (4) Atrial fibrillation: Code(s): I48.91 - Unspecified atrial fibrillation Status: Acute Assessment and Plan: cont metoprolol, but due to hypotension, will lower dose 12.5 mg daily (5) Chronic anemia: Code(s): D64.9 - Anemia, unspecified Status: Acute Assessment and Plan: likely multifactorial, previously seen extensively by hematology/oncology and GI, no clear source monitor, stable s/p several pRBCs over the last several admissions (6) Hyponatremia: Code(s): E87.1 - Hypo-osmolality and hyponatremia Status: Chronic Assessment and Plan: stable off diuretics, monitor and follow tomorrow (7) BPH without obstruction/lower urinary tract symptoms: Code(s): N40.0 - Benign prostatic hyperplasia without lower urinary tract symptoms Status: Acute Assessment and Plan: Stable. Continue with Flomax (8) Bacteremia: Code(s): R78.81 - Bacteremia Status: Acute Assessment and Plan: repeat blood cultures positive, unsure of etiology will need double coverage for MRSA, start teflaro per ID pharm dosages and consultation repeat blood cultures ordered, follow YOLIS tomorrow may need knee aspirations for possible infection of hardware seeding recurrent MRSA bacteremia Plan DVT prophylaxis with Eliquis GI prophylaxis not indicated Code status full code Subjective Date/time seen: 10/05/22 08:18 Interval history: 82yo male with multiple recent admissions to this hospital with hx of AV replacement, recent endocarditis, AFib, HTN, CAD, COPD, BPH and anemia of chronic disease here for SOB. Patient states he feels much better today than yesterday. He has been weaned to room air and is breathing more comfortably. He denies any pain. No overnight events noted. No chest pain or shortness of breath. No nausea, vomiting or diarrhea. No fevers or chills. Review of Systems Review of Systems: 12 point review of systems was assessed and was negative except as noted in the HPI Exam Narrative: General: Chronically ill appearing male, somewhat frail HEENT: Atraumatic, normocephalic, mucous membranes moist CV: Regular rate and rhythm, S1, S2 Lungs: Coarse breath sounds throughout, diminished at bases Abdomen: Soft, nontender, nondistended Extremities: Normal to inspection, trace edema Skin: No rashes noted, no lesions or wounds seen Psych: Euthymic, normal affect Objective Data Vital Signs Vital Signs: Vital Signs - 24 hr 10/04/22 08:45 10/04/22 09:34 10/04/22 09:36 Temperature Pulse Rate 79 79 79 Respiratory Rate Blood Pressure 92/58 L Pulse Oximetry Oxygen Delivery Oxygen Flow Rate 10/04/22 10:39 10/04/22 13:28 10/04/22 13:28 Temperature 97.5 F L Pulse Rate 73 Respiratory Rate 16 Blood Pressure 78/48 L 85/46 L Pulse Oximetry 99 99 Oxygen Delivery Nasal Cannula Oxygen Flow Rate 4 10/04/22 20:33 10/04/22 21:19 10/05/22 06:00 Temperature 98.0 F 98.0 F Pulse Rate 70 76 69 Respiratory Rate 16 16 Blood Pressure 98/47 L 101/49 L Pulse Oximetry 94 93 Oxygen Delivery Oxygen Flow Rate Intake/Output Intake/Output: Intake & Output 10/02/22 02/0
[2022-10-05] MEDS: FLUTICASONE/UMECLIDIN/VILANTER 100-62.5-25 MCG ELLIPTA 1 PUFF INHALATION (08:37)
[2022-10-05 08:40] LABS: Anion Gap 0 mmol/L (8-16); Blood Urea Nitrogen 33 mg/dL (9-20); Calcium 7.5 mg/dL (8.4-10.2); Carbon Dioxide 33 mmol/L (22-30); Chloride 96 mmol/L (98-107); Creatine Kinase < 20 U/L (55-170); Estimated CRCL calculation 21 ml/min; Estimated Glomerular Filt Rate 27; Glucose 94 mg/dL (65-110); Magnesium 1.9 mg/dL (1.6-2.3); Potassium 3.9 mmol/L (3.4-5.0); Sodium 129 mmol/L (137-145)
[2022-10-05] MEDS: PANTOPRAZOLE 40 MG TABLET PO (08:43)
[2022-10-05] MEDS: guaiFENesin 12 HR 600 MG TABCR PO ×2 (08:43→21:38)
[2022-10-05] MEDS: APIXABAN 2.5 MG TABLET PO ×2 (08:43→21:38)
[2022-10-05] MEDS: SACCHAROMYCES BOULARDII 250 MG CAPSULE PO ×3 (08:43→16:02)
[2022-10-05] MEDS: MIDODRINE HCL 2.5 MG TABLET 5 MG PO ×3 (08:44→16:02)
[2022-10-05] MEDS: DAPTOmycin 700 MG in SODIUM CHLORIDE 0.9% IV 50 ML 100 MG IVPB (08:44)
[2022-10-05] MEDS: FAMOTIDINE 20 MG TABLET PO ×2 (08:44→21:38)
[2022-10-05] MEDS: AMIODARONE HCL 200 MG TABLET PO ×2 (08:51→21:38)
--- NOTE | 2022-10-05 09:24 | IDPHARM ---
[facility] was consulted by Nereida Perales regarding infectious diseases for Naga De Leon. Naga De Leon is a 82 year old M with concerns regarding MRSA Endocarditis with potential treatment failure. Background The patient is currently receiving Daptomycin 10 mg/kg q48 hr adjusted based on renal function. 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 The patient has been receiving daptomycin for the endocarditis but now has positive blood cultures 11/28 with GPC in clusters. Expectation is that these are likely MRSA. Additionally, the patient has no WBC today, but most recent from 10/03 is 6.9 with 84% neutrophils and PLT form the same day at 110. SCr has increased from a stable 1.5-1.7 to 2.3 mg/dL and a CrCl ~21 mL/min. CPK noted to be <20. 09/26 BCX: No Growth, 10/03 BCX: GPC in clusters 11/28, 10/04 sputum culture: pending Assessment/Recommendation/Discussion Discussed with consulting provider regarding this case. To assess if this is truly treatment failure will recommend to obtain blood cultures today, however given the extent of the positivity and severity of condition unsure of the full clinical utility of this set of cultures. Will add ceftaroline renally adjusted to 300 mg q8h from the ideal 600 mg q8h to the daptomycin 10 mg/kg q48h therapy and look to obtain blood cultures in 2-3 days to see if bacteremia is cleared. Likely, patient would benefit from assessment of current central access and if this port has a risk to be seeded and subsequently reseed the bacteremia. Will defer that to consulting provider and other various members of the healthcare team. Recommend continued monitoring of SCr (especially given recent rise), CPK, WBC and the cytopenias that ceftaroline can cause. Will continue to follow. Thank you for the interesting consult. Khanh Muñiz, PharmD Infectious Disease/Antimicrobial Stewardship Pharmacist 10/05/22; [id number]
[2022-10-05 09:25] LABS: Basophils Percent Auto 0.6 % (0.2-1.2); Eosinophils Absolute Auto 0.1 K/mm3 (0-0.3); Eosinophils Percent Auto 1.7 % (0-4.4); Hematocrit 25.8 % (42.0-52.0); Hemoglobin 8.3 g/dL (14.0-18.0); Immature Granulocyte Absolute 0.07 K/mm3 (0.00-0.031); Immature Platelet Fraction Pct 5.4 % (0.9-11.2); Lymphocytes Absolute Auto 0.57 K/mm3 (0.9-3.2); Lymphocytes Percent Auto 16.2 % (18.3-44.2); Mean Corpuscular HGB Conc 32.2 g/dl (32-36); Mean Corpuscular Hemoglobin 31.7 pg (26-34); Mean Corpuscular Volume 98.5 fl (80-100); Mean Platelet Volume 10.7 fl (7.4-10.4); Monocytes Absolute Auto 0.4 K/mm3 (0.1-0.6); Neutrophils Absolute Auto 2.4 K/mm3 (1.3-6.7); Neutrophils Percent Auto 67.5 % (45.5-73.1); Platelet Count Result 70 k/mm3 (150-375); Red Blood Count 2.62 M/mm3 (4.6-6.20); Red Cell Distribution Width 20.4 % (11.5-14.5); White Blood Count 3.5 K/mm3 (4.5-10.0)
[2022-10-05 09:50] LABS: Platelet Estimate Decreased (Adequate); Poikilocytosis 1+ (NORMAL); Schistocytes None Seen (NORMAL)
[2022-10-05] MEDS: METOPROLOL SUCCINATE EXT REL 12.5 MG TABCR PO (10:26)
--- NOTE | 2022-10-05 11:05 | PM.CNCAR ---
Assessment and Plan Assessment and plan (1) Other endocarditis, valve unspecified: Code(s): I38 - Endocarditis, valve unspecified Status: Acute Assessment and Plan: Plan for repeat YOLIS tomorrow (2) Mitral regurgitation: Code(s): I34.0 - Nonrheumatic mitral (valve) insufficiency Status: Acute Assessment and Plan: Severe by most recent YOLIS (3) Acute exacerbation of CHF (congestive heart failure): Code(s): I50.9 - Heart failure, unspecified Status: Acute Assessment and Plan: Acute on chronic diastolic heart failure mostly resolved at this point. Hold Bumex for now as he has an acute kidney injury, but will need to be resumed at a lower dose when ZORAN resolves. Could also add Entresto and Jardiance when renal function improves. (4) Atrial fibrillation: Code(s): I48.91 - Unspecified atrial fibrillation Status: Acute Assessment and Plan: Hx atrial fibrillation/flutter. In sinus rhythm on exam. Continue metoprolol and eliquis. History of Present Illness History of Present Illness Consult date/time: 10/05/22 11:05 Requesting physician: Berna Perales DO Consult reason: congestive heart failure Reason For Visit: CHF Exacerbation, Pneumonia Narrative: Mr. De Leon is an 82 year old male who is well known to our group. He is a patient followed in our office by Dr. Melton. He has a history of atrial flutter, HFpEF, mild aortic stenosis (s/p AVR in 2013), and severe MR. He presented to the hospital on 09/26/22 with a chief complaint of shortness of breath and was found to be in decompensated heart failure. He has been diuresed and is not significantly volume overloaded on exam. During his last hospitalization he was found to have a mitral valve vegetation and bacteremia and therefore is undergoing a course of IV antibiotics for this. He did have negative blood cultures on 09/26/22, but unfortunately now his blood cultures are once again positive. He is feeling relatively well at this point and denies any shortness of breath, palpitations, chest pain. Review of Systems Constitutional: Constitutional: Denies chills, Denies fever(s), Denies headache(s) and Denies malaise Eyes: Eyes: Denies change in vision ENT: Reports Normal hearing present, Denies dizziness, Denies headache(s) and Denies hearing loss Cardiovascular: Cardiovascular: Denies chest pain, Denies chest pain at rest, Denies chest pain with activity, Denies syncope, Reports pedal edema, Reports leg edema, Denies palpitations, Reports dyspnea and Denies dyspnea on exertion Respiratory: Respiratory: Denies cough, Reports dyspnea, Reports dyspnea on exertion and Denies wheezing Gastrointestinal: Gastrointestinal: Denies abdominal pain, Denies constipation and Denies diarrhea Genitourinary: Genitourinary: Denies hematuria and Denies dysuria Musculoskeletal: Musculoskeletal: Denies myalgias, Denies arthralgias and Denies muscle cramps Integumentary/Breasts: Skin/Breast: Denies wounds Neurologic: Reports Normal hearing present, Denies confusion, Denies dizziness, Denies syncope and Denies headache(s) Psychiatric: Psychiatric: Denies anxiety, Denies confusion and Denies depression Endocrine: Endocrine: Denies cold intolerance, Denies flushing, Denies heat intolerance and Denies palpitations Hematologic/Lymphatic: Hematologic/Lymphatic: Denies easy bleeding and Denies easy bruising Allergic/Immunologic: Allergic/Immunologic: Denies wheezing PMFSH Past Medical History Medical History Anemia Aortic valve stenosis Atrial fibrillation Atrial fibrillation with RVR Occurred during admission May 2022 due to sepsis Basal cell carcinoma Blood loss anemia BPH (benign prostatic hyperplasia) Chronic idiopathic thrombocytopenia Chronic renal insufficiency, stage II (mild) Collagenous colitis Resulting in chronic loose stools Coronary ar
--- NOTE | 2022-10-05 11:54 | PM.CNPUL ---
History of Present Illness History of Present Illness Consult date: 10/05/22 Chief complaint: CHF Exacerbation, Pneumonia Narrative: 10/05/2022: This is a new pulmonary consult for COPD. DATA: 06/14/2022 EXAMINATION: CT chest abdomen pelvis wo con INDICATION: Sepsis. Shortness of breath. Acute kidney injury. TECHNIQUE: Computed tomography (CT) of the chest, abdomen, and pelvis was performed without intravenous contrast. Automated exposure control and iterative reconstruction technique were employed. The dose-length product was 810.39 mGy-cm. COMPARISON: Pelvis CT 06/23/2021 FINDINGS: CHEST CT: There is mild atelectasis in the lungs. There are small pleural effusions. There is a 4 mm nodule in left upper lobe, likely benign. There is mild scarring at the lung apices. A right internal jugular central venous catheter is seen with tip at the superior cavoatrial junction. The heart size is normal. There are changes of aortic valve replacement. There are coronary artery calcifications. No pericardial effusion. There is mild thoracic spondylosis. ABDOMEN/PELVIS CT: The liver is normal. The gallbladder is distended and contains gallstones. Gallbladder wall thickening is noted. The spleen, pancreas, and adrenal glands are normal. There are cysts in the kidneys measuring up to 3.4 cm on the right. There is no urolithiasis. The bladder is decompressed by a Greenwood catheter. There is a left inguinal hernia containing fat. There is liquid stool in the colon suggestive of diarrhea. There is diverticulosis of the colon without evidence of diverticulitis. The appendix is normal. There are no pathologically enlarged lymph nodes. 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 There is no free intraperitoneal fluid. There is severe lumbar spondylosis. IMPRESSION: 1. Distended gallbladder with gallstones and gallbladder wall thickening suspicious for acute cholecystitis. If this result is discordant with physical exam, consider hepatobiliary scintigraphy. 2. Small pleural effusions. 3. Left inguinal hernia containing fat. 4. 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 [facility] Past Medical History Medical History Anemia Aortic valve stenosis Atrial fibrillation Atrial fibrillation with RVR Occurred during admission May 2022 due to sepsis Basal cell carcinoma Blood loss anemia BPH (benign prostatic hyperplasia) Chronic idiopathic thrombocytopenia Chronic renal insufficiency, stage II (mild) Collagenous colitis Resulting in chronic loose stools Coronary artery disease Diastolic dysfunction Echocardiogram 04/2022: EF 70% grade 1 diastolic dysfunction, aortic valve prosthesis with good function, moderate pulmonary hypertension Diastolic heart failure Essential hypertension Gastroesophageal reflux Hyponatremia Hypothyroidism, unspecified Insomnia Kidney stones Latent tuberculosis Treated with INH in 1959 Mild persistent asthma without complication Mixed hyperlipidemia MRSA bacteremia Other endocarditis, valve unspecified PSVT (paroxysmal supraventricular tachycardia) Thrombocytopenia Surgical History Surgical History H/O aortic valve replacement (2013) 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 And 2 children. He smoked up to 4 packs of cigarettes per day but for the most part smoked 1-2 packs of cigarettes
--- NOTE | 2022-10-05 13:14 | PC.NURSE ---
On 10/05/22, the student, [Mitzi Garnett], provided care and completed [facility] documentation on this patient. I have reviewed the student's documentation and agree with the findings.
--- NOTE | 2022-10-05 13:31 | PM.PNGS ---
Progress Note: A&P Assessment and Plan (1) Port-A-Cath in place: Code(s): Z95.828 - Presence of other vascular implants and grafts Status: Acute Assessment and Plan: small coil in LIJ but no kinking, VAD functioning well, cont to use, no acute intervention required, call c ?s, issues Subjective Subjective Date/Time Seen: 10/05/22 13:31 no acute issues, still c SOB Review of Systems Review of Systems: All systems reviewed & are unremarkable except as noted in HPI and below Exam Const: General: cooperative, comfortable and no acute distress Chest: Other: L SCV VAD - C/D/I Resp: Auscultation: diminished lung sounds Cardio: Rate: regular rate Rhythm: regular rhythm GI: Inspection: normal to inspection Objective Data Vital Signs Vital Signs: Vital Signs - 24 hr 10/04/22 20:33 10/04/22 21:19 10/05/22 06:00 Temperature 36.7 C 36.7 C Pulse Rate 70 76 69 Respiratory Rate 16 16 Blood Pressure 98/47 L 101/49 L Pulse Oximetry 94 93 Oxygen Delivery 10/05/22 08:38 10/05/22 08:51 10/05/22 08:30 Temperature Pulse Rate 72 72 Respiratory Rate Blood Pressure 93/47 L Pulse Oximetry 92 Oxygen Delivery Room Air 10/05/22 10:26 10/05/22 11:38 10/05/22 11:53 Temperature Pulse Rate 65 Respiratory Rate Blood Pressure Pulse Oximetry Oxygen Delivery Room Air Room Air Intake/Output Intake/Output: Intake & Output 10/02/22 10/03/22 10/04/22 10/05/22 23:59 23:59 23:59 23:59 Intake Total 660 1290 1035 1010 Output Total 800 4425 827 2842 Balance -140 -110 885 10 Meds/Results Medications: Active Medications Generic Name Dose Route Start Last Admin Trade Name Freq PRN Reason Stop Dose Admin Albuterol 1 puff 09/26/22 23:44 09/28/22 08:28 Albuterol Sulfate (*Sp) Aerosol 1 Puff INHALATION 1 puff QID PRN Administration Shortness Of Breath Alteplase, Recombinant 2 mg 09/27/22 12:11 09/27/22 16:45 Alteplase 2 Mg Vial (Cathflo) IV PUSH 2 mg ONCE PRN Administration Line Occlusion Amiodarone HCl 200 mg 09/26/22 23:45 10/05/22 08:51 Amiodarone Hcl 200 Mg Tablet PO 200 mg Q12HR NEHA Administration Apixaban 2.5 mg 09/26/22 23:45 10/05/22 08:43 Apixaban 2.5 Mg Tablet PO 2.5 mg Q12HR NEHA Administration Atorvastatin Calcium 10 mg 09/26/22 23:45 10/04/22 21:00 Atorvastatin 10 Mg Tablet PO 10 mg HS NEHA Administration Bumetanide 2 mg 10/02/22 09:00 10/04/22 16:45 Bumetanide 1 Mg Tablet PO 2 mg BID NEHA Administration Famotidine 20 mg 09/26/22 23:45 10/05/22 08:44 Famotidine 20 Mg Tablet PO 20 mg Q12HR NEHA Administration Fluticasone/Umeclidinium/Vilanterol 1 puff 09/27/22 08:00 10/05/22 08:37 Fluticasone/Umeclidin/Vilanter 100-62.5-25 Mcg Ellipta INHALATION 1 puff DAILYRT NEHA Administration Guaifenesin 600 mg 09/27/22 21:00 10/05/22 08:43 Guaifenesin 12 Hr 600 Mg Tabcr PO 600 mg Q12HR NEHA Administration Heparin Sodium (Beef Lung) 50 units 09/28/22 09:00 10/05/22 08:45 Heparin Flush 50 Units/5 Ml Syringe IV PUSH 50 units QAM NEHA Administration Heparin Sodium (Beef Lung) 50 units 09/27/22 12:11 Heparin Flush 50 Units/5 Ml Syringe IV PUSH PRN PRN after intermittent infusion Heparin Sodium (Beef Lung) 50 units 09/27/22 12:11 Heparin Flush 50 Units/5 Ml Syringe IV PUSH PRN PRN after blood draws Heparin Sodium (Porcine) 500 units 09/27/22 12:11 Heparin Sodium Lock Flush 500 Units/5 Ml Syringe IV PUSH PRN PRN see comments below Daptomycin 700 mg/ Sodium 50 mls @ 100 mls/hr 10/05/22 09:00 10/05/22 08:44 Chloride IVPB 11/03/22 23:59 100 mls/hr Q48H NEHA Administration Ceftaroline Fosamil 300 mg/ 250 mls @ 250 mls/hr 10/05/22 16:00 Dextrose IVPB Q8HR NEHA Levothyroxine Sodium 50 mcg 09/27/22 06:30 10/05/22 05:36 Levothyroxine Sodium 50 Mcg Tablet PO 50 mcg DAILY@0
[2022-10-05] MEDS: CENTRAL LINE FLUSH 10 ML IV PUSH ×2 (16:49→21:39)
[2022-10-05] MEDS: ATORVASTATIN 10 MG TABLET PO (21:38)
[2022-10-05] MEDS: TAMSULOSIN HCL 0.4 MG CAPSULE PO (21:38)
[2022-10-06] VITALS (30 sets, daily range): BP systolic 70–103; BP diastolic 42–65; PULSE 66–97; RESP 13–25; TEMP 36.3–36.9; O2SAT 92–100
--- NOTE | 2022-10-06 | ECHO_ITS ---
Patient Info Name: Naga De Leon Age: 82 years : 1940 Gender: Male Ht: 67 in Wt: 135 lbs BSA: 1.70 m2 HR: 96 bpm BP: 89 / 55 mmHg Heart Rhythm: Sinus Rhythm Technical Quality: Good Exam Date: 10/06/2022 10:18 AM [facility] Room: [facility] Patient Status: Inpatient Admit Date: 09/26/2022 Staff Ordering Physician: Pamela Og Professor Of Voice: Katharina Beatty RDCS Attending Provider: Michelet Wells MD Referring Physician: Lenka STEWART; Exam Type: CA echo transesophageal Study Info Indications - R/O ENDOCARDITIS HX/O MVR Complete two-dimensional, color flow and Doppler transesophageal study is performed. Summary 1. Normal left ventricular size and vigorous systolic function. 2. Severe left atrial enlargement. 3. Thickened mitral valve leaflets with annuloplasty ring. 4. Small vegetation noted associated with the anterior mitral valve leaflet with at least moderate to severe MR. 5. Bioprosthetic aortic valve device is unremarkable in appearance no and effective vegetations noted and no evidence of perivalvular abscess. Left Ventricle Left ventricular chamber dimension is normal. Left ventricular systolic function is normal with an ejection fraction by Biplane Method of Discs of Empty. Right Ventricle Right ventricular chamber dimension is normal. Left Atria Left atrial chamber dimension is moderately enlarged. Right Atria Right atrial chamber dimension is normal. Aortic Valve There is Empty bioprosthetic aortic valve stenosis. There is no regurgitation of the bioprosthetic aortic valve. Pulmonic Valve The pulmonic valve is normal. Mitral Valve The annuloplasty ring prosthetic mitral valve leaflefts are Empty. There is moderate to severe regurgitation of the annuloplasty ring prosthetic mitral valve. Small annuloplasty ring prosthetic mitral valve vegetation visualized. Tricuspid Valve The tricuspid valve leaflets are normal. Pericardium/Pleural The pericardium appears normal. Inferior Vena Cava Not well visualized inferior vena cava with Empty collapse upon inspiration consistent with Empty right atrial pressure, Empty. Aorta The aortic root size at the sinus of Valsalva is normal. Report Signatures
[2022-10-06 05:36] LABS: Alanine Aminotransferase 33 U/L (6-50); Albumin Level 2.7 g/dL (3.5-5.1); Alkaline Phosphatase 131 U/L (38-126); Anion Gap 6 mmol/L (8-16); Aspartate Amino Transferase 37 U/L (17-59); Bilirubin,Total 0.9 mg/dL (0.2-1.3); Blood Urea Nitrogen 34 mg/dL (9-20); Calcium 7.5 mg/dL (8.4-10.2); Carbon Dioxide 27 mmol/L (22-30); Chloride 97 mmol/L (98-107); Estimated CRCL calculation 21 ml/min; Estimated Glomerular Filt Rate 27; Glucose 101 mg/dL (65-110); Sodium 130 mmol/L (137-145)
[2022-10-06 06:00] LABS: Basophils Percent Auto 0.2 % (0.2-1.2); Eosinophils Percent Auto 0.1 % (0-4.4); Hematocrit 25.4 % (42.0-52.0); Hemoglobin 8.4 g/dL (14.0-18.0); Immature Granulocyte Absolute 0.05 K/mm3 (0.00-0.031); Immature Granulocyte Percent A 0.6 % (0-0.5); Immature Platelet Fraction Pct 6.6 % (0.9-11.2); Lymphocytes Absolute Auto 0.24 K/mm3 (0.9-3.2); Lymphocytes Percent Auto 2.8 % (18.3-44.2); Mean Corpuscular HGB Conc 33.1 g/dl (32-36); Mean Corpuscular Hemoglobin 31.2 pg (26-34); Mean Corpuscular Volume 94.4 fl (80-100); Mean Platelet Volume 10.9 fl (7.4-10.4); Monocytes Absolute Auto 0.8 K/mm3 (0.1-0.6); Monocytes Percent Auto 9.7 % (2.6-8.5); Neutrophils Absolute Auto 7.4 K/mm3 (1.3-6.7); Neutrophils Percent Auto 86.6 % (45.5-73.1); Platelet Count Result 64 k/mm3 (150-375); Red Blood Count 2.69 M/mm3 (4.6-6.20); Red Cell Distribution Width 20.2 % (11.5-14.5); White Blood Count 8.6 K/mm3 (4.5-10.0)
[2022-10-06] MEDS: SODIUM CHLORIDE 0.9% IV 250 ML IV CONT (06:14)
[2022-10-06 07:13] LABS: Platelet Estimate Decreased (Adequate)
[2022-10-06 07:14] LABS: Anisocytosis 1+ (NORMAL); Schistocytes None Seen (NORMAL)
[2022-10-06] MEDS: LEVOTHYROXINE SODIUM 50 MCG TABLET PO (07:32)
[2022-10-06] MEDS: CENTRAL LINE FLUSH 10 ML IV PUSH ×3 (07:36→21:50)
--- NOTE | 2022-10-06 07:57 | PCOTNOTE ---
On 10/03/22, this patient was not seen for OT due to patient refusing treatment twice. First time in AM, patient declined I don't think there's anything we need to do , second attempt in PM, patient reported too fatigued post PT session to participate in OT. Patient not seen on 10/03/22.
[2022-10-06] MEDS: APIXABAN 2.5 MG TABLET PO ×2 (08:53→21:49)
[2022-10-06] MEDS: guaiFENesin 12 HR 600 MG TABCR PO ×2 (08:53→21:49)
[2022-10-06] MEDS: FAMOTIDINE 20 MG TABLET PO ×2 (08:53→21:49)
[2022-10-06] MEDS: MIDODRINE HCL 2.5 MG TABLET 5 MG PO ×3 (08:53→16:23)
[2022-10-06] MEDS: SACCHAROMYCES BOULARDII 250 MG CAPSULE PO ×3 (08:53→16:23)
[2022-10-06] MEDS: AMIODARONE HCL 200 MG TABLET PO ×2 (08:54→21:49)
[2022-10-06] MEDS: PANTOPRAZOLE 40 MG TABLET PO (08:54)
[2022-10-06] MEDS: FLUTICASONE/UMECLIDIN/VILANTER 100-62.5-25 MCG ELLIPTA 1 PUFF INHALATION (09:08)
--- NOTE | 2022-10-06 09:39 | PM.IMPN ---
Progress Note: A&P Assessment and Plan (1) Acute exacerbation of CHF (congestive heart failure): Code(s): I50.9 - Heart failure, unspecified Status: Acute Assessment and Plan: appears to be euvolemic at this time, diuretics held today as patient starting to appear dehydrated, fluid restriction lifted Hypotensive today, will continue to hold blood pressure medications, diuretics, trial IV fluids, transfer to IMU (2) Other endocarditis, valve unspecified: Code(s): I38 - Endocarditis, valve unspecified Status: Acute Assessment and Plan: Repeat YOLIS essentially unchanged vegetation on the valves, no new vegetations (3) Mitral regurgitation: Code(s): I34.0 - Nonrheumatic mitral (valve) insufficiency Status: Acute Assessment and Plan: Will need valve replaced surgically after all of his bacteremia is resolved (4) Atrial fibrillation: Code(s): I48.91 - Unspecified atrial fibrillation Status: Acute Assessment and Plan: Discontinue metoprolol, monitor telemetry closely (5) Chronic anemia: Code(s): D64.9 - Anemia, unspecified Status: Acute Assessment and Plan: likely multifactorial, previously seen extensively by hematology/oncology and GI, no clear source monitor, stable s/p several pRBCs over the last several admissions (6) Hyponatremia: Code(s): E87.1 - Hypo-osmolality and hyponatremia Status: Chronic Assessment and Plan: stable off diuretics, monitor and follow tomorrow (7) BPH without obstruction/lower urinary tract symptoms: Code(s): N40.0 - Benign prostatic hyperplasia without lower urinary tract symptoms Status: Acute Assessment and Plan: Stable. Continue with Flomax (8) Bacteremia: Code(s): R78.81 - Bacteremia Status: Acute Assessment and Plan: repeat blood cultures positive, unsure of etiology will need double coverage for MRSA, started teflaro per ID pharm dosages and consultation repeat blood cultures ordered, these are positive as well Need to pull port immediately, can replace once blood cultures are negative, appreciate general surgery consultation may need knee aspirations for possible infection of hardware seeding recurrent MRSA bacteremia Plan Plan is to transfer patient to [facility] versus [facility] for infectious diseases consultation DVT prophylaxis with Eliquis GI prophylaxis not indicated Code status full code Subjective Date/time seen: 10/06/22 09:39 Interval history: 82yo male with multiple recent admissions to this hospital with hx of AV replacement, recent endocarditis, AFib, HTN, CAD, COPD, BPH and anemia of chronic disease here for SOB. Patient states he feels little better than yesterday. He just coming back from his YOLIS and feeling a bit groggy, but otherwise well. Review of Systems Review of Systems: 12 point review of systems was assessed and was negative except as noted in the HPI Exam Narrative: General: Chronically ill appearing male, somewhat frail, weak HEENT: Atraumatic, normocephalic, mucous membranes moist CV: Regular rate and rhythm, S1, S2 Lungs: Coarse breath sounds throughout, diminished at bases Abdomen: Soft, nontender, nondistended Extremities: Normal to inspection, trace edema Skin: No rashes noted, no lesions or wounds seen Psych: Euthymic, normal affect Objective Data Vital Signs Vital Signs: Vital Signs - 24 hr 10/05/22 10:26 10/05/22 11:38 10/05/22 11:53 Temperature Pulse Rate 65 Respiratory Rate Blood Pressure Pulse Oximetry Oxygen Delivery Room Air Room Air Oxygen Flow Rate 10/05/22 13:36 10/05/22 20:30 10/05/22 21:38 Temperature 99.4 F 98.2 F Pulse Rate 74 72 72 Respiratory Rate 18 18 Blood Pressure 84/51 L 98/55 L Pulse Oximetry 97 96 Oxygen Delivery Oxygen Flow Rate 10/05/22 22:20 10/06/22 04:00 10/06/22 07:38 Temperature 98.2 F Puls
--- NOTE | 2022-10-06 10:13 | PCPTNOTE ---
Attempted to see patient for PT, however patient was out of the room for procedure.
--- NOTE | 2022-10-06 10:16 | SUR.OPER ---
Dr Saenz made aware of blood pressures
--- NOTE | 2022-10-06 10:32 | P.PCNCC_ITS ---
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 He has a bioprosthetic aortic valve and a mitral valve ring annuloplasty. Transesophageal echocardiogram done several weeks ago suggested infection of his mitral valve. This study is now being repeated because of persistent Staph bacteremia Procedure Procedure performed:: Transesophageal echocardiogram Sedation/Medication given:: Fentanyl 50 mg Versed 2 mg Case start time 10:20 a.m. Case end time 10:29 a.m. Sedation provided by Rose Burt RN, trained observer Estimated blood loss:: 0 Procedure note:: Patient was brought to the cardiac catheterization lab holding area in the is postabsorptive state placed in the supine position. Or pharyngeal benzocaine was used for topical anesthesia the bite block was then placed into position and sedated using 50 mg of fentanyl and 2 mg of Versed. The transesophageal echo probe was then placed into the oropharynx and the tongue was moved anteriorly in the did probe was placed into the esophagus. Perry was then performed and a multi planer fashion with color Doppler imaging as well. The procedure was well tolerated and uncomplicated. The PERRY probe was removed and the patient is recovering uneventfully. Findings:: The left atrium is significantly dilated. The mitral valve leaflets are thickened there is a annuloplasty ring device that can be visualized. There is a small mobile mass on the atrial side of the anterior leaflet of the mitral valve which does have a appearance typical of the infective vegetative material. The color Doppler demonstrates a severe jet of mitral regurgitation. The jet primarily appears to be centrally located. I do not see any perivalvular reg urgitation. The left ventricle is of normal size and contracts well in all segments visually estimate the ejection fraction to be 60%. The aortic valve prosthesis was inspected carefully in the long axis and short axis projections. The leaflets appeared to be thin and pliable. There was no infective material seen in the LV outflow tract on the ventricular side of the valve and there is no detectable aortic valve regurgitation. There is no evidence of a perivalvular abscess cavity. The right-sided chambers are normal in appearance the tricuspid and pulmonic valves are unremarkable no vegetations are seen on these valves. There is no pericardial fluid. Conclusion:: 1. Perry inspection of the aortic valve bioprosthesis does not show any evidence of infectious involvement and is unchanged from the esophageal ECHO several weeks ago. 2. Perry inspection of the repaired mitral valve shows evidence of infective involvement of the anterior leaflet with severe MR. These findings are not significantly changed from echocardiographic appearance several weeks ago. Michelet Saenz MD [facility]
--- NOTE | 2022-10-06 10:47 | SUR.PHASEII ---
bp 77/53. Fluid bolus started. Dr Saenz notified.
--- NOTE | 2022-10-06 10:50 | SUR.PHASEII ---
Pt placed in trendelenburg per Dr Morgan request.
--- NOTE | 2022-10-06 10:57 | SUR.PHASEII ---
Dr Saenz here to see pt.
--- NOTE | 2022-10-06 14:05 | PCOTNOTE ---
Patient in bed, at bedside. Patient sleeping, but awoke to discuss participating in therapy. Patient reported being very fatigued from YOLIS procedure earlier groggy , and agreed patient is very sleepy. Patient requested to participate in OT tomorrow in late morning. Patient encouraged to perform EOB activities, get up to chair for short while with this therapist. Patient continued to refuse at this time. Will continue plan of care for OT 10/07/22.
[2022-10-06] MEDS: SODIUM CHLORIDE 0.9% IV 1,000 ML 999 ML IV CONT (17:00)
[2022-10-06] MEDS: MIDODRINE HCL 10 MG TABLET PO (17:38)
--- NOTE | 2022-10-06 17:46 | WPDONCPN ---
Progress Note: A/P - Additional Plan Normocytic anemia. Patient has a history of aortic valve replacement and endocarditis. His anemia secondary to chronic kidney disease. Patient received Procrit injection 1 week ago. Labs showed stable hemoglobin. He will continue Procrit 15401 units on a biweekly basis. Thrombocytopenia. Platelet count has declined to 64,000. He is asymptomatic with without any bleeding. Low platelet count can be secondary to infection. I am also concerned about underlying bone marrow disorder like myelodysplastic syndrome. I have discussed bone marrow aspiration and biopsy with the patient. We plan to perform bone marrow aspiration and biopsy next week if platelet count remains low. - Time Spent With Patient Total time spent is greater than 50% in coordination of care (as documented) at patient's floor/unit and/or counseling patient: 15 - 25 minutes Subjective Interval history: Normocytic anemia and thrombocytopenia Review of Systems - Review of Systems Patient is lying in his bed and seems to be comfortable. Denies any chest pain. Denies any shortness of breath. No fevers and chills. Patient has some tiredness and fatigue. No other new complaints. - Neurologic Reports system reviewed and no additional complaints, except as documented, Reports hearing normal, Reports weakness, Denies behavioral changes, Denies confusion, Denies syncope, Denies headache(s) Exam Vital signs: Temp Pulse Resp BP Pulse Ox O2 Del Method O2 Flow Rate 36.6 C 66 14 76/42 L 98 Nasal Cannula 3 10/06/22 16:43 10/06/22 16:43 10/06/22 16:43 10/06/22 16:43 10/06/22 16:43 10/06/22 11:47 10/06/22 11:47 Narrative: Lungs are clear to auscultation bilaterally Cardiovascular regular rate rhythm no murmurs Abdomen soft nontender nondistended bowel sounds are positive Extremities no edema PN: Objective Data - Labs CBC & Chem 7: 10/06/22 04:57 10/06/22 04:57 Labs: Laboratory Results - last 24 hr 10/06/22 10/06/22 04:57 04:57 WBC 8.6 RBC 2.69 L Hgb 8.4 L Hct 25.4 L MCV 94.4 MCH 31.2 MCHC 33.1 RDW 20.2 H Plt Count 64 L MPV 10.9 H Immature Gran % (Auto) 0.6 H Neut % (Auto) 86.6 H Lymph % (Auto) 2.8 L Millard % (Auto) 9.7 H Eos % (Auto) 0.1 Baso % (Auto) 0.2 Lymph # (Auto) 0.24 L Millard # (Auto) 0.8 H Eos # (Auto) 0.0 Baso # (Auto) 0.0 Abs Immat Gran (auto) 0.05 H Absolute Neuts (auto) 7.4 H Absolute Nucleated RBC 0.0 Nucleated RBC % 0.0 Platelet Estimate Decreased % Immature Plt Fraction 6.6 Anisocytosis 1+ Schistocytes None seen Sodium 130 L Potassium 4.0 Chloride 97 L Carbon Dioxide 27 Anion Gap 6 L BUN 34 H Creatinine 2.30 H Estim Creat Clear Calc 21 Estimated GFR 27 L Glucose 101 Calcium 7.5 L Total Bilirubin 0.9 AST 37 ALT 33 Alkaline Phosphatase 131 H Total Protein 6.0 L Albumin 2.7 L
--- NOTE | 2022-10-06 21:41 | PC.NURSE ---
Spoke with Jaleesa RODRIGUEZ and she reports she has spoken with Dr Hunt per patients blood pressures. She orders transfer to ICU, with levophed to be run through [facility] and states Dr Hunt requests lactic acid. This nurse to enter orders.
[2022-10-06] MEDS: ATORVASTATIN 10 MG TABLET PO (21:48)
--- NOTE | 2022-10-06 22:26 | PC.NURSE ---
This patient, Naga De Leon, was transferred to [ICU2 ] on 10/06/22 at 2215 for vasopressor initiation. Personal belongings sent with patient. Report given to [Amara ]. Appropriate documentation sent with patient.
[2022-10-06] MEDS: NOREPINEPHRINE 8 MG/D5W 250 ML 8 MG/250 ML BAG 9.38 MG IV CONT (23:02)
[2022-10-06 23:09] LABS: Lactic Acid Reflex 0.8 mmol/L (0.7-2.0)
[2022-10-06] MEDS: ZOLPIDEM TARTRATE (*CRX) 5 MG TABLET PO (23:13)
[2022-10-07] VITALS (15 sets, daily range): BP systolic 105–119; BP diastolic 62–80; PULSE 62–83; RESP 15–26; TEMP 37.1; O2SAT 95–100; BMI 23.5
[2022-10-07] MEDS: CENTRAL LINE FLUSH 10 ML IV PUSH ×2 (00:38→13:13)
[2022-10-07 04:01] LABS: Basophils Percent Auto 0.5 % (0.2-1.2); Eosinophils Absolute Auto 0.1 K/mm3 (0-0.3); Eosinophils Percent Auto 1.4 % (0-4.4); Hematocrit 23.4 % (42.0-52.0); Hemoglobin 7.7 g/dL (14.0-18.0); Immature Granulocyte Absolute 0.05 K/mm3 (0.00-0.031); Immature Granulocyte Percent A 0.8 % (0-0.5); Immature Platelet Fraction Pct 7.6 % (0.9-11.2); Lymphocytes Absolute Auto 0.83 K/mm3 (0.9-3.2); Lymphocytes Percent Auto 13.1 % (18.3-44.2); Mean Corpuscular HGB Conc 32.9 g/dl (32-36); Mean Corpuscular Hemoglobin 32.1 pg (26-34); Mean Corpuscular Volume 97.5 fl (80-100); Mean Platelet Volume 11.9 fl (7.4-10.4); Monocytes Absolute Auto 0.5 K/mm3 (0.1-0.6); Monocytes Percent Auto 8.5 % (2.6-8.5); Neutrophils Absolute Auto 4.8 K/mm3 (1.3-6.7); Neutrophils Percent Auto 75.7 % (45.5-73.1); Platelet Count Result 69 k/mm3 (150-375); Red Cell Distribution Width 20.2 % (11.5-14.5); White Blood Count 6.4 K/mm3 (4.5-10.0)
[2022-10-07 04:18] LABS: Alanine Aminotransferase 29 U/L (6-50); Albumin Level 2.4 g/dL (3.5-5.1); Alkaline Phosphatase 100 U/L (38-126); Anion Gap 3 mmol/L (8-16); Aspartate Amino Transferase 31 U/L (17-59); Bilirubin,Total 0.8 mg/dL (0.2-1.3); Blood Urea Nitrogen 32 mg/dL (9-20); Calcium 7.3 mg/dL (8.4-10.2); Carbon Dioxide 28 mmol/L (22-30); Chloride 94 mmol/L (98-107); Estimated CRCL calculation 25 ml/min; Estimated Glomerular Filt Rate 34; Glucose 105 mg/dL (65-110); Potassium 4.1 mmol/L (3.4-5.0); Sodium 125 mmol/L (137-145)
[2022-10-07] MEDS: LEVOTHYROXINE SODIUM 50 MCG TABLET PO (05:42)
[2022-10-07] MEDS: AMIODARONE HCL 200 MG TABLET PO (08:37)
[2022-10-07] MEDS: SACCHAROMYCES BOULARDII 250 MG CAPSULE PO ×2 (08:38→13:13)
[2022-10-07] MEDS: FAMOTIDINE 20 MG TABLET PO (08:38)
[2022-10-07] MEDS: guaiFENesin 12 HR 600 MG TABCR PO (08:38)
[2022-10-07] MEDS: MIDODRINE HCL 10 MG TABLET PO ×2 (08:38→13:12)
[2022-10-07] MEDS: PANTOPRAZOLE 40 MG TABLET PO (08:38)
--- NOTE | 2022-10-07 09:33 | PM.IMPN ---
Progress Note: A&P Assessment and Plan (1) Acute exacerbation of CHF (congestive heart failure): Code(s): I50.9 - Heart failure, unspecified Status: Acute Assessment and Plan: appears to be euvolemic at this time, diuretics as patient starting to appear dehydrated, fluid restriction lifted Hypotensive, continue vasopressor support in the intensive care unit, appreciate architectural sales consultant management (2) Other endocarditis, valve unspecified: Code(s): I38 - Endocarditis, valve unspecified Status: Acute Assessment and Plan: Repeat YOLIS shows aortic root abscess, new compared to previous YOLIS Continue daptomycin and ceftaroline for continued refractory MRSA bacteremia, appreciate Infectious Disease pharmacy support (3) Mitral regurgitation: Code(s): I34.0 - Nonrheumatic mitral (valve) insufficiency Status: Acute Assessment and Plan: Will need valve replaced surgically after all of his bacteremia is resolved (4) Atrial fibrillation: Code(s): I48.91 - Unspecified atrial fibrillation Status: Acute Assessment and Plan: Discontinue metoprolol, monitor telemetry closely (5) Chronic anemia: Code(s): D64.9 - Anemia, unspecified Status: Acute Assessment and Plan: likely multifactorial, previously seen extensively by hematology/oncology and GI, no clear source monitor, stable s/p several pRBCs over the last several admissions (6) Hyponatremia: Code(s): E87.1 - Hypo-osmolality and hyponatremia Status: Chronic Assessment and Plan: Worsened overnight, may need Nephrology consultation, continue to monitor at this time, 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 Continue with Flomax (8) Bacteremia: Code(s): R78.81 - Bacteremia Status: Acute Assessment and Plan: repeat blood cultures positive, assume source is aortic root abscess and aortic + mitral valve infective endocarditis will need double coverage for MRSA, started teflaro per ID pharm dosages and consultation repeat blood cultures ordered, these are positive as well Need to pull port immediately, can replace once blood cultures are negative, appreciate general surgery consultation may need knee aspirations for possible infection of hardware seeding recurrent MRSA bacteremia Plan Plan is to transfer patient to [facility] for CTS and ID, accepted by Dr Melendez. Discussed code status and hospice options with patient as this development is severe with a high risk intervention and lengthy recovery that he may not survive. Family opted for full and aggressive treatment. DVT prophylaxis with Eliquis, held for possible surgery GI prophylaxis not indicated Code status full code Subjective Date/time seen: 10/07/22 09:33 Interval history: Patient became more hypotensive overnight was moved to the ICU for vasopressor support. No chest pain or shortness of breath. No nausea, vomiting or diarrhea. No fevers or chills. Review of Systems Review of Systems: All systems reviewed & are unremarkable except as noted in HPI and below Exam Narrative: General: Chronically ill appearing male, somewhat frail, weak HEENT: Atraumatic, normocephalic, mucous membranes moist CV: Regular rate and rhythm, S1, S2 Lungs: Coarse breath sounds throughout, diminished at bases Abdomen: Soft, nontender, nondistended Extremities: Normal to inspection, trace edema Skin: No rashes noted, no lesions or wounds seen Psych: Euthymic, normal affect Objective Data Vital Signs Vital Signs: Vital Signs - 24 hr 10/06/22 09:59 10/06/22 10:20 10/06/22 10:31 Temperature Pulse Rate 74 77 74 Respiratory Rate 17 21 H 13 Blood Pressure 97/65 L 103/61
--- NOTE | 2022-10-07 10:07 | PM.PNCARD ---
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 YOLIS done yesterday. On my personal review I see an aortic root abscess, new compared to the prior YOLIS. 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 I think he needs CTS consultation and likely will need aortic valve replacement, mitral valve replacement and aortic root replacement. I have reviewed this with the patient, his and daughter are interested in pursuing this, understanding that this is a very big surgery with. --Discussed w/ certified emergency vehicle technician Dr. Amador. --Contacted [facility] transfer line and discussed with CTS Dr. Melendez, who accepted pt in transfer for evaluation. --Cont IV Daptomycin, ceftaroline. --Likely will need ID consult --Likely will need Port-a-Cath removed . 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 - Rheumatic mitral valve disease, unspecified Status: Acute Assessment and Plan: above (3) S/P aortic valve replacement with bioprosthetic valve: Code(s): Z95.3 - Presence of xenogenic heart valve Status: Acute Assessment and Plan: S/P bioprosthetic AVR 2013 (4) Mitral regurgitation: Code(s): I34.0 - Nonrheumatic mitral (valve) insufficiency Status: Acute Assessment and Plan: Severe by most recent TEEs --Will need MVR (5) Acute exacerbation of CHF (congestive heart failure): Code(s): I50.9 - Heart failure, unspecified Status: Acute Assessment and Plan: Acute on chronic diastolic heart failure mostly resolved at this point. --Hold Bumex for now as he has an acute kidney injury, but will need to be resumed at a lower dose when ZORAN resolves. --Could also add Entresto and Jardiance when renal function improves. (6) Atrial fibrillation: Code(s): I48.91 - Unspecified atrial fibrillation Status: Acute Assessment and Plan: Hx atrial fibrillation/flutter. In sinus rhythm on exam. --Continue amiodarone. --Hold Eliquis for possible surgery. -- HOld off on AC w/ heparin due to thrombocytopenia (7) Septic shock due to Staphylococcus aureus: Code(s): A41.01 - Sepsis due to Methicillin susceptible Staphylococcus aureus; R65.21 - Severe sepsis with septic shock Status: Acute Assessment and Plan: Intermittently positive blood cultures since May. Hypotensive yesterday. --BP support with Levophed. (8) Thrombocytopenia: Code(s): D69.6 - Thrombocytopenia, unspecified Status: Acute Assessment and Plan: Thrombocytopenia noted int he last few days, likely due to sepsis and bacteremia. (9) ZORAN (acute kidney injury): Code(s): N17.9 - Acute kidney failure, unspecified Status: Acute Plan ZORAN/CKD --Creatinine a little better today. Time Spent With Patient Time: 80 minutes independently reviewing films, evaluating pt, reviewing chart, and coordinating care w/ certified emergency vehicle technician, RN, Estela, etc. Subjective Date/time seen: 03/2022 office visit: Patient doing well, able to cut the grass, good functional status.? 06/13/2022:? Admitted with MRSA bacteremia and septic shock.? Had acute kidney failure and thrombocytopenia/ITP.? Had a AFib RVR, status post cardioversion.? Sotalol changed amiodarone due to prolonged first-degree AV block and QT prolongation.? YOLIS showed no vegetations.? Had acute diastolic CHF.? Anemic and transfused.? Developed C diff colitis.? Discharge to home on 07/04/2022. 07/08/2022 Admitted with sepsis, pyelonephritis, ZORAN, worsening anemia.? MRSA bacteremia. Discharged 07/24/2022 to SNF.. 07/25/2022 Admitted with altered mental status.? Found to be positive for influenza A.? Discharged 08/01/2022 to SNF. 08/19/2022 Admitted with dizziness, f
[2022-10-07] MEDS: DAPTOmycin 700 MG in SODIUM CHLORIDE 0.9% IV 50 ML 100 MG IVPB (10:15)
--- NOTE | 2022-10-07 10:39 | WPDCNINT ---
Assessment and Plan Assessment and plan (1) Septic shock due to Staphylococcus aureus: Code(s): A41.01 - Sepsis due to Methicillin susceptible Staphylococcus aureus; R65.21 - Severe sepsis with septic shock Status: Acute Assessment and Plan: Patient has infected endocarditis with persistent MR SA bacteremia. Repeat YOLIS done on 10/06 showed small vegetation on anterior mitral valve leaflet and moderate to severe MR. There is also possibility of aortic root abscess. Blood cultures were positive for MRSA Continue daptomycin and ceftaroline Diuretics have been discontinued Patient was given 1 L of saline bolus prior to transfer to ICU. Hold further fluids. 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 - Rheumatic mitral valve disease, unspecified Status: Acute (3) Abscess of aortic root: Code(s): I33.0 - Acute and subacute infective endocarditis Status: Acute (4) Bacteremia: Code(s): R78.81 - Bacteremia Status: Acute (5) Port-A-Cath in place: Code(s): Z95.828 - Presence of other vascular implants and grafts Status: Acute (6) Mitral regurgitation: Code(s): I34.0 - Nonrheumatic mitral (valve) insufficiency Status: Acute (7) Atrial fibrillation: Code(s): I48.91 - Unspecified atrial fibrillation Status: Acute Assessment and Plan: Currently in sinus rhythm Continue amiodarone Eliquis will be held for possible surgery. Heparin not initiated to significant thrombocytopenia Plan DVT prophylaxis -Eliquis held, SCDs Stress ulcer prophylaxis -he is on PPI Nutrition -diet ordered Code Status - Full Code Patient has been accepted at [facility] and is awaiting transfer at this time. Total Critical Care Time - 35 minutes Due to a high probability of clinically significant, life threatening deterioration, the patient required my highest level of preparedness to intervene emergently and I personally spent this critical care time directly and personally managing the patient. This critical care time included obtaining a history; examining the patient; pulse oximetry; ordering and review of studies; arranging urgent treatment with development of a management plan; evaluation of patient's response to treatment; frequent reassessment; and discussions with other providers. It was exclusive of separately billable procedures and treating other patients and teaching time. Please see Assessment and Plan section and the rest of the note for further information on patient assessment and treatment Economic Historian Consult Note Consult date: 10/07/22 Reason for consult: Staph aureus bacteremia, septic shock HPI: Naga De Leon is a 82 year old male patient who has had multiple admissions to this hospital in the recent past and has past medical history of aortic valve replacement in 2016, recent infective endocarditis, atrial fibrillation, hypertension coronary artery disease, COPD, BPH and anemia of chronic disease.? Patient came to the emergency room on 09/26 evaluation of shortness of breath. On presentation patient had some mild edema to his lower extremities.? His H&H is 10.8 and 32.8.? Sodium level was 125 which is typically low.? Creatinine is 1.6 which is slightly below his baseline of 1.7-2.0.? BNP 24440.? The patient had positive nitrates in his urine.? Chest x-ray was read as interval development of diffuse lung disease consistent with pulmonary edema and/or pneumonia.? Small pleural effusions with increase in size.? The patient was given a nebulizer treatment, IV fluids, Solu-Medrol, Lasix, cefepime, vancomycin and azithromycin in the emergency room.? The patient was admitted. He was evaluated by Hematology and Gastroenterology for his anemia. Due to positive bl
[2022-10-07 11:22] LABS: SARS-CoV-2 RNA PCR Negative
[2022-10-07 12:20] LABS: NT Pro B Type Natriuretic Pept 9060 pg/mL (19.9-100)
--- NOTE | 2022-10-07 15:00 | PC.NURSE ---
Report given to accepting RN, Aylin, at [facility]. All questions were answered. Updated Dr. Perales regarding transfer. Awaiting EMS arrival.
--- NOTE | 2022-10-07 15:31 | PCPTNOTE ---
HOLD PT; pt transfer to ICU and has orders EMR for transfer to another facility for infectious disease consult;
--- NOTE | 2022-10-24 20:42 | PM.TDS ---
Transfer Discharge Sum: Prov Provider Date of admission: 09/26/22 14:43 Primary care physician: Doris Ingram MD Admitting clinician: Michelet Wells MD Consults: 09/27/22 13:17 Consult to Physician Routine Comment: spoke w @ [phone] (, ) Consulting Provider: Zbigniew Calvin score caller/MD group to consult: Hematology Reason for consultation: pancytopenia Has provider been notified: Yes 10/01/22 07:08 Consult to Physician Routine Comment: spoke w/Dr Thorpe 10/[address] Patel to f/u Consulting Provider: Tian Recinos score caller/MD group to consult: GI-- Please complete Sunday10.02.22. No GI habilitative interventionist over . Reason for consultation: anemia, hematchezia Has provider been notified: Yes 10/04/22 Consult to Physician Routine Comment: LM on provider cell. 10.04.22 @ 0945--/US Consulting Provider: Neal Ornelas score caller/MD group to consult: general surgery Reason for consultation: port a cath moved, needs replaced, [place]? Has provider been notified: Yes 10/05/22 Consult to Physician Routine Comment: spoke w/Pamela Og @0916 10/05/22 (/) Consulting Provider: Nadir Macdonald score caller/MD group to consult: cardiology Reason for consultation: heart failure, endocarditis Has provider been notified: Yes Consult to Physician Routine Comment: spoke w/Dr. Calvin @0925 10/05/22 (/) Consulting Provider: Zbigniew Calvin score caller/MD group to consult: oncology Reason for consultation: bone marrow biopsy Has provider been notified: Yes 10/05/22 09:00 Consult Infectious Disease Pharmacist Routine Comment: 10/06/22 Consult to Physician Routine Comment: Consulting Provider: Jose Manuel Hunt score caller/MD group to consult: Dr hunt Reason for consultation: critical care/hypotension Has provider been notified: Yes DS: Admitting Diagnosis Discharge Date 10/07/22 Admitting Diagnosis Shortness of breath DS: Discharge Diagnosis Discharge Diagnosis (1) Acute exacerbation of CHF (congestive heart failure): Code(s): I50.9 - Heart failure, unspecified Status: Acute Assessment and Plan: appears to be euvolemic at this time, diuretics as patient starting to appear dehydrated, fluid restriction lifted Hypotensive, continue vasopressor support in the intensive care unit, appreciate teacher visually impaired management (2) Other endocarditis, valve unspecified: Code(s): I38 - Endocarditis, valve unspecified Status: Acute Assessment and Plan: Repeat YOLIS shows aortic root abscess, new compared to previous YOLIS Continue daptomycin and ceftaroline for continued refractory MRSA bacteremia, appreciate Infectious Disease pharmacy support (3) Mitral regurgitation: Code(s): I34.0 - Nonrheumatic mitral (valve) insufficiency Status: Acute Assessment and Plan: Will need valve replaced surgically after all of his bacteremia is resolved (4) Atrial fibrillation: Code(s): I48.91 - Unspecified atrial fibrillation Status: Acute Assessment and Plan: Discontinue metoprolol, monitor telemetry closely (5) Chronic anemia: Code(s): D64.9 - Anemia, unspecified Status: Acute Assessment and Plan: likely multifactorial, previously seen extensively by hematology/oncology and GI, no clear source monitor, stable s/p several pRBCs over the last several admissions (6) Hyponatremia: Code(s): E87.1 - Hypo-osmolality and hyponatremia Status: Chronic Assessment and Plan: Worsened overnight, may need Nephrology consultation, continue to monitor at this time, 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 Continue wi
== END 2022-10-07 16:10 | disposition short-term general hospital (02) | DRG 288 ==
LOC: ANHED 13:00 → ANHIMU 16:30 → ANH2MED 09-30 13:09 → ANHIMU 10-06 18:20 → ANHICU 10-06 22:37
PROVIDERS: Internal Medicine; Internal Medicine Cardiovascular Disease; Nurse Practitioner; Physician Assistant; Specialist; Admitting Provider Chiropractor; Emergency Provider Emergency Medicine; PCP Family Medicine; Visit Provider Student in an Organized Health Care Education/Training Program
PROC: B246ZZ4 Ultrasonography of Right and Left Heart, Transesophageal (ICD-10-PCS; CPT 93312; principal; 2022-10-06 10:30)
DX: I33.0 Acute and subacute infective endocarditis (principal); A41.02 Sepsis due to Methicillin resistant Staphylococcus aureus; I50.33 Acute on chronic diastolic (congestive) heart failure; R65.21 Severe sepsis with septic shock; I13.0 Hypertensive heart and chronic kidney disease with heart failure and stage 1 through stage 4 chronic kidney disease, or unspecified chronic kidney disease; I48.20 Chronic atrial fibrillation, unspecified; E87.1 Hypo-osmolality and hyponatremia; D69.3 Immune thrombocytopenic purpura; I34.0 Nonrheumatic mitral (valve) insufficiency; I25.10 Atherosclerotic heart disease of native coronary artery without angina pectoris; I27.20 Pulmonary hypertension, unspecified; J44.9 Chronic obstructive pulmonary disease, unspecified; J45.30 Mild persistent asthma, uncomplicated; D63.8 Anemia in other chronic diseases classified elsewhere; N18.2 Chronic kidney disease, stage 2 (mild); N40.0 Benign prostatic hyperplasia without lower urinary tract symptoms; K21.9 Gastro-esophageal reflux disease without esophagitis; E03.9 Hypothyroidism, unspecified; E78.2 Mixed hyperlipidemia; Z96.653 Presence of artificial knee joint, bilateral; Z20.822 Contact with and (suspected) exposure to COVID-19; Z79.01 Long term (current) use of anticoagulants; Z95.3 Presence of xenogenic heart valve; Z95.1 Presence of aortocoronary bypass graft; Z87.442 Personal history of urinary calculi; Z87.891 Personal history of nicotine dependence; Z95.828 Presence of other vascular implants and grafts
CPT/HCPCS: 36415; 36430; 36600; 71045; 71046; 80048; 80053; 80069; 81001; 82274; 82375; 82550; 82570; 82805; 82948; 83050; 83605; 83735; 83880; 84155; 84156; 84165; 84166; 84295; 84443; 84484; 85014; 85018; 85025; 85027; 85055; 85610; 85730; 86140; 86850; 86900; 86901; 86923; 87040; 87070; 87147; 87181; 87186; 87205; 93005; 93312; 93320; 93325; 94640; 96361; 96374; 97110; 97116; 97161; 97165; 97530; 97535; 99284; A9270; J0456; J0692; J0712; J0878; J1642; J1940; J2250; J2930; J2997; J3010; J3370; J3475; J7030; J7040; J7050; J7060; P9016; Q5105; U0003; U0005